=== PATIENT | female | born 1965 | race Caucasian/White ===

== ENCOUNTER 2019-11-21 14:38 | Emergency (ER) | payer MEDICARE, MEDICAID, SELFPAY ==
--- NOTE | 2019-11-21 14:54 | ED.GENADULT ---
HPI - General Adult General Chief complaint: Upper Respiratory Infection Stated complaint: cough,ear pain History of Present Illness HPI narrative: Jacque is a 54-year-old woman with a past medical history of tobacco abuse and diabetes that presented with 2 days of flu-like symptoms. It started with a runny nose and cough some progress to body aches and subjective fevers and chills. She denies any chest pain, syncope and near-syncope. Admits nausea but no vomiting. Related Data Home Medications Medication Instructions Recorded Confirmed metformin 500 mg PO DAILY 11/21/19 11/21/19 Allergies Allergy/AdvReac Type Severity Reaction Status Date / Time Penicillins Allergy Hives Verified 09/20/19 14:19 codeine AdvReac Nausea Verified 09/20/19 14:19 Review of Systems Constitutional: Constitutional: Reports fatigue and Reports fever(s) Eyes: Eyes: Reports as per HPI ENT: Reports as per HPI Cardiovascular: Cardiovascular: Reports as per HPI Respiratory: Respiratory: Reports cough, Denies dyspnea and Denies wheezing Gastrointestinal: Gastrointestinal: Denies abdominal pain, Reports nausea and Denies vomiting Musculoskeletal: Musculoskeletal: Reports no additional musculoskeletal complaints Integumentary/Breasts: Skin/Breast: Reports system reviewed and no additional complaints, except as docu Neurologic: Reports system reviewed and no additional complaints, except as documented Psychiatric: Psychiatric: Reports no additional psychiatric complaints Endocrine: Endocrine: Reports no additional endocrine complaints Hematologic/Lymphatic: Hematologic/Lymphatic: Reports no additional hematologic/lymphatic complaints Allergic/Immunologic: Allergic/Immunologic: Reports no additional allergic/immunologic complaints [facility] Past Medical History Medical History COPD (chronic obstructive pulmonary disease) Type 2 diabetes mellitus Social History Social History Smoking status: Current every day smoker Alcohol intake: current Substance use type: does not use Exam Const: General: no acute distress and alert Orientation/consciousness: patient oriented x3 HENMT: Other: erythematous and boggy nasal turbinates, TM within normal limits bilaterally, moist oral mucosa Eyes: Conjunctivae: conjunctivae normal Pupils: Equal, round and reactive pupils present Neck: Neck: normal visual inspection Chest: Chest palpation & inspection: normal inspection of the chest Resp: Effort & Inspection: normal respiratory effort, not labored and not tachypneic Auscultation: clear to auscultation bilaterally Cardio: Rate: regular rate Rhythm: regular rhythm Heart sounds: no murmurs GI: GI Palp: Yes Soft to palpation and No Tenderness to palpation present (GI) Skin: General skin exam: normal color Rashes: no rashes Neuro: General: patient oriented x3 and moves all extremities Extrem: General: normal to inspection Psych: Mental Status: mental status grossly normal Course Course Emergency Course: Jacque was seen and evaluated. Flu swabs were ordered given her symptoms. Her flu swabs were negative. On re-examination her lungs were clear. However further history reveals she does have some wheezing at home. For this reason she was given an inhaler, educated on return precautions then discharged Vital Signs Vital signs: Vital Signs Temperature 36.6 C 11/21/19 14:55 Pulse Rate 94 11/21/19 14:55 Respiratory Rate 20 11/21/19 14:55 Blood Pressure 157/86 H 11/21/19 14:55 Pulse Oximetry 99 11/21/19 14:55 Temperature 36.6 C 11/21/19 14:55 Pulse Rate 94 11/21/19 14:55 Respiratory Rate 20 11/21/19 14:55 Blood Pressure 157/86 H 11/21/19 14:55 Pulse Oximetry 99 11/21/19 14:55 Medical Decision Making [facility] Narrative Medical decision making narrative: Given her cough and rhi
[2019-11-21 14:55] VITALS: BP 157/86; PULSE 94; RESP 20; TEMP 36.6; O2SAT 99
[2019-11-21 15:49] LABS: Influenza Control Valid (Valid)
[2019-11-21 16:06] VITALS: RESP 20; O2SAT 99
== END 2019-11-21 16:07 | disposition home or self-care (01) ==
PROVIDERS: Emergency Provider Family Medicine; PCP Family Medicine
DX: J06.9 Acute upper respiratory infection, unspecified (principal); F17.200 Nicotine dependence, unspecified, uncomplicated
CPT/HCPCS: 87804; 99283

== ENCOUNTER 2020-03-17 15:28 | Emergency (ER) | payer MEDICARE, MEDICAID, SELFPAY ==
--- NOTE | ~2020-03-17 | XR_ITS ---
EXAMINATION: XR chest 2V EXAM DATE: 03/17/2020 16:40 INDICATION: Right-sided chest pain, shortness of breath and cough. TECHNIQUE: Frontal and lateral projections of the chest obtained and reviewed. Comparison is made to prior examination from 10/05/2018. FINDINGS: The lungs are clear. There is mild hyperinflation. There are no pleural effusions. The car diomediastinal silhouette is within normal limits. There is no pneumothorax suspected. The bones an d soft tissues are unremarkable. IMPRESSION: Mild hyperinflation. Reviewed, dictated and finalized at location B. IMPRESSION: Mild hyperinflation.
[2020-03-17 15:33] VITALS: BP 165/87; PULSE 88; RESP 20; TEMP 36.7; O2SAT 98
[2020-03-17 15:37] VITALS: PULSE 81
--- NOTE | 2020-03-17 16:03 | ECG_ITS ---
Measurements Intervals [place] Rate: 81 P: 72 MT: 146 QRS: 49 QRSD: 94 T: 56 QT: 390 QTc: 453 Interpretive Statements SINUS RHYTHM LOW QRS VOLTAGE IN PRECORDIAL LEADS BORDERLINE T WAVE ABNORMALITY- INFERIOR LEADS BORDERLINE ECG Electronically Signed On 03-17-2020 17:05:04 CDT by Escobar Bonilla D.O.
[2020-03-17 16:43] LABS: Basophils Absolute Auto 0.02 K/mm3 (0.00-0.10); Basophils Percent Auto 0.4 % (0.0-1.0); Eosinophils Absolute Auto 0.07 K/mm3 (0.02-0.50); Eosinophils Percent Auto 1.4 % (1.0-6.0); Hematocrit 38.8 % (35.0-49.0); Hemoglobin 12.5 g/dL (12.0-15.0); Immature Granulocyte Absolute 0.02 K/mm3 (0.00-0.00); Immature Granulocyte Percent A 0.4 % (0.0-0.0); Lymphocytes Absolute Auto 1.67 K/mm3 (1.10-4.50); Lymphocytes Percent Auto 33.3 % (18.0-42.0); Mean Corpuscular HGB Conc 32.2 g/dL (32.0-36.0); Mean Corpuscular Hemoglobin 28.8 pg (27.0-31.0); Mean Corpuscular Volume 89.4 fL (78.0-102.0); Monocytes Absolute Auto 0.25 K/mm3 (0.10-0.90); Neutrophils Percent Auto 59.5 % (50.0-70.0); Platelet Count Result 156 K/mm3 (150-420); Red Blood Count 4.34 M/mm3 (4.20-5.40); Red Cell Distribution Width 13.4 % (11.6-14.4)
[2020-03-17 16:45] LABS: Add Urine Microscopic? YES; Bilirubin Urine Negative (Negative); Blood Urine Negative (Negative); Color Urine Yellow (Yellow); Glucose Urine UA Negative (Negative); Ketones Urine Negative (Negative); Leukocyte Esterase Ur Trace LEU/UL (Negative); Nitrate Urine Positive (Negative); Protein Urine Negative (Negative); pH Urine 6.5 (5.0-8.0)
[2020-03-17 16:46] LABS: Pregnancy On Board Control Positive; Urine Pregnancy Test Negative
[2020-03-17 16:51] LABS: Appearance Urine Sl Cloudy (Clear); RBC Urine 0-2 /hpf (0-2); Squamous Epithelial Cell Urine Few /hpf (Few); WBC Urine 0-3 /hpf (0-3)
[2020-03-17 16:52] LABS: Bacteria Urine 4+ /hpf
[2020-03-17 16:58] LABS: D Dimer 0.38 mg/L (0.19-0.50)
[2020-03-17 17:03] LABS: Alanine Aminotransferase 18 U/L (14-59); Albumin Level 3.5 g/dL (3.4-5.0); Alkaline Phosphatase 76 U/L (46-116); Anion Gap 10.8 mmol/L (7-16); Aspartate Amino Transferase 17 U/L (15-37); Bilirubin,Total 0.2 mg/dL (0.00-1.00); Blood Urea Nitrogen 10 mg/dL (7-18); Calcium 8.9 mg/dL (8.5-10.1); Carbon Dioxide 30 mmol/L (21-32); Chloride 102 mmol/L (98-108); Estimated Glomerular Filt Rate > 60; Glucose 103 mg/dL (70-99); Osmolality Calculated 287 mOsm/kg (285-295); Potassium 3.8 mmol/L (3.5-5.1); Sodium 139 mmol/L (136-145); Total Protein 7.6 g/dL (6.4-8.2); Troponin I < 0.02 ng/mL (0.00-0.056)
--- NOTE | 2020-03-17 18:16 | ED.CHESTPAIN ---
HPI - Chest Pain General Chief Complaint: Chest Pain Stated Complaint: chest pain Source: patient Mode of arrival: ambulatory Limitations: no limitations History of Present Illness HPI narrative: This is a 55-year-old female who presents to the emergency department with complaints of right-sided chest pain. Patient states that she has been having a cough and not feeling very good for a few days. However this morning when she woke up she has some back pain in the right side of her chest that radiates into her chest wall in the axillary region. She has not had fever however she did feel hot and sweaty at 1 point. She is not having any nausea or vomiting. she does not have any variation in her discomfort with exertion food or activity. Patient does have a history of COPD. MD complaint: chest discomfort Pertinent past history: asthma ( COPD) Onset (ago): minute(s) Timing of current episode: constant Prior episodes: No Pain location: right chest Pain radiation: none Severity: moderate Quality: tightness Relieving factors: nothing Exacerbating factors: nothing Context: recent illness ( patient has had cold and cough symptoms for a couple of days preceding this discomfort.) Related Data Home Medications Medication Instructions Recorded Confirmed metformin 500 mg PO BID 11/21/19 03/17/20 Allergies Allergy/AdvReac Type Severity Reaction Status Date / Time Penicillins Allergy Hives Verified 09/20/19 14:19 codeine AdvReac Nausea Verified 09/20/19 14:19 Review of Systems Review of Systems: All systems reviewed & are unremarkable except as noted in HPI and below Constitutional: Constitutional: Denies chills, Reports fatigue, Reports fever(s) ( Subjective warmness but no documented temperature) and Denies weakness ENT: Denies system reviewed and no additional complaints, except as documented, Denies as per HPI, Denies dysphagia, Denies vertigo, Denies dizziness, Denies epistaxis, Denies nasal congestion and Denies sore throat Cardiovascular: Cardiovascular: Denies as per HPI, Denies no additional cardiovascular complaints, Denies chest pain, Denies rapid heart rate, Denies radiating jaw, neck or arm pain and Denies slow heart rate Respiratory: Respiratory: Reports cough and Reports dyspnea Gastrointestinal: Gastrointestinal: Denies as per HPI, Reports no additional gastrointestinal complaints, Denies abdominal pain, Denies bloating, Denies constipation, Denies heartburn, Denies diarrhea, Denies nausea and Denies vomiting Genitourinary: Genitourinary: Reports no additional female genitourinary complaints, Denies as per HPI, Denies abnormal vaginal bleeding, Denies hematuria, Denies nocturia, Denies genital lesions, Denies dysuria, Denies pelvic pain, Denies flank pain, Denies urinary incontinence and Denies vaginal discharge Musculoskeletal: Musculoskeletal: Denies no additional musculoskeletal complaints, Denies as per HPI, Denies back pain, Denies myalgias, Denies arthralgias, Denies joint swelling and Denies muscle cramps Neurologic: Denies system reviewed and no additional complaints, except as documented, Denies as per HPI, Denies confusion, Denies vertigo, Denies dizziness, Denies syncope, Denies headache(s), Denies focal weakness, Denies numbness and Denies weakness Psychiatric: Psychiatric: Denies no additional psychiatric complaints, Denies as per HPI, Denies anxiety, Denies depression, Denies homicidal ideation and Denies suicidal ideation Allergic/Immunologic: Allergic/Immunologic: Denies no additional allergic/immunologic complaints, Denies as per HPI, Denies lip swelling, Denies throat swelling, Denies tongue swelling and Denies wheezing [facility] Past Medical History Medical History COPD (chronic obstructive pulmonary disease) Type 2 diabetes mellitus Social History Social History Smoking status: Current ever
[2020-03-17 18:50] VITALS: BP 128/66; PULSE 82; RESP 18; O2SAT 98
== END 2020-03-17 18:50 | disposition home or self-care (01) ==
PROVIDERS: Emergency Provider Emergency Medicine; PCP Family Medicine
DX: E11.9 Type 2 diabetes mellitus without complications (principal); Z79.4 Long term (current) use of insulin; J44.1 Chronic obstructive pulmonary disease with (acute) exacerbation; F17.200 Nicotine dependence, unspecified, uncomplicated; R82.90 Unspecified abnormal findings in urine
CPT/HCPCS: 36415; 71046; 80053; 81001; 81025; 84484; 85025; 85380; 87077; 87086; 87088; 87186; 93005; 99284

== ENCOUNTER 2021-03-26 20:38 | Emergency (ER) | payer MEDICARE, MEDICAID, SELFPAY ==
[2021-03-26 20:50] VITALS: BP 150/66; PULSE 84; RESP 20; TEMP 36.6; O2SAT 98
--- NOTE | 2021-03-26 20:55 | ED.WOUNDLAC ---
HPI - Wound/Laceration General Chief Complaint: Wound/Laceration Stated Complaint: bump on finger Source: patient Mode of arrival: ambulatory Limitations: no limitations History of Present Illness HPI narrative: patient with a lesion on the anterior surface of her right index finger with no drainage from warmth no redness no fever chills, patient has had this for the last couple of days has tried Neosporin for the last couple of days currently no drainage no pain or tenderness has good range of motion concerned that she may have been bitten by a spider. Patient is not up-to-date with her tetanus and will get her up-to-date. Onset (ago): day(s) Extremity Location: Right: hand ( right index finger) Related Data Home Medications Medication Instructions Recorded Confirmed metformin 500 mg PO BID 11/21/19 03/26/21 Allergies Allergy/AdvReac Type Severity Reaction Status Date / Time Penicillins Allergy Hives Verified 09/20/19 14:19 codeine AdvReac Nausea Verified 09/20/19 14:19 Review of Systems Review of Systems: All systems reviewed & are unremarkable except as noted in HPI and below PMFSH Past Medical History Medical History (Updated 03/26/21 @ 20:58 by Mynor Germain MD) COPD (chronic obstructive pulmonary disease) Type 2 diabetes mellitus Social History Social History Smoking status: Current every day smoker Alcohol intake: current Substance use type: does not use Exam Const: General: no acute distress and alert Orientation/consciousness: patient oriented x3 HENMT: Head: normal to inspection Eyes: Conjunctivae: conjunctivae normal Pupils: Equal, round and reactive pupils present Chest: Chest palpation & inspection: normal inspection of the chest Resp: Effort & Inspection: normal respiratory effort Auscultation: clear to auscultation bilaterally Cardio: Rate: regular rate Rhythm: regular rhythm GI: GI Palp: Yes Soft to palpation Percussion: Yes normal to percussion Skin: Other: Small 2mm lesion anterior surface with no drainage no warmth or tenderness on her right index finger. Neuro: General: patient oriented x3 Extrem: General: normal to inspection and no pedal edema Psych: Mental Status: mental status grossly normal Affect: normal affect Course Course Emergency Course: Patient has a lesion placed antibiotic ointment and updated patient with some tenderness Vital Signs Vital signs: Vital Signs Temperature 36.6 C 03/26/21 20:50 Pulse Rate 84 03/26/21 20:50 Respiratory Rate 20 03/26/21 20:50 Blood Pressure 150/66 H 03/26/21 20:50 Pulse Oximetry 98 03/26/21 20:50 Temperature 36.6 C 03/26/21 20:50 Pulse Rate 84 03/26/21 20:50 Respiratory Rate 20 03/26/21 20:50 Blood Pressure 150/66 H 03/26/21 20:50 Pulse Oximetry 98 03/26/21 20:50 Critical Care Time Critical Care Time Critical Care Time: No Discharge Plan Discharge Clinical Impression: Abscess Patient Disposition: Home, Self-Care Condition: Stable Instructions: Antibiotic Form, Abscess (ED) Additional Instructions: advised patient to continue Neosporin once daily x3 additional days and then follow-up primary care physician if symptoms persist or worsen. Prescriptions: No Action metformin 500 mg Tablet 500 mg PO BID RF: 0 albuterol sulfate 90 mcg/actuation HFA aerosol inhaler 1 inhalation INHALATION QID PRN (Reason: shortness of breath or wheezing) Qty: 18 RF: 0 Follow-up/Referrals: Faisal Cooper M.D. [Primary Care Provider] - Time of Disposition: 20:58
[2021-03-26] MEDS: TETANUS,DIPHTHERIA,AC PERTUSSIS ADULT 0.5 ML (ADACEL) IM (21:02)
[2021-03-26 21:04] VITALS: BP 149/78; PULSE 78; RESP 18; O2SAT 98
[2021-03-26] MEDS: NEOMYCIN/POLYMYXIN/BACITRACIN OINTMENT PACKET 1 PACKET TOPICAL (21:04)
== END 2021-03-26 21:07 | disposition home or self-care (01) ==
PROVIDERS: Emergency Provider Emergency Medicine; PCP Family Medicine
DX: L02.91 Cutaneous abscess, unspecified (principal)
CPT/HCPCS: 90471; 90715; 99282

== ENCOUNTER 2021-07-06 14:39 | Emergency (ER) | payer MEDICARE, MEDICAID, SELFPAY ==
[2021-07-06 14:54] VITALS: BP 143/76; PULSE 86; RESP 16; TEMP 36.4; O2SAT 98
--- NOTE | 2021-07-06 15:15 | ED.EXTPRO ---
HPI - Extremity Problem General Chief complaint: Extremity Problem,Nontraumatic Stated complaint: Lt shoulder pain Source: patient Mode of arrival: ambulatory Limitations: no limitations History of Present Illness HPI Narrative: this is a 56-year-old female that presents with some pain in her left neck and shoulder area muscular has about a 6/10 pain with palpation, with no known injury, no fever chills has good range of motion in her neck with no headache no blurry vision no nausea vomiting. MD Complaint: extremity pain ( left neck and shoulder muscular pain with palpation) Onset (ago): day(s) Pain Consistency: constant Location: left Severity scale (1-10): 6 Quality: aching Relieving factors: immobilization and medication Exacerbating factors: range of motion Associated symptoms: denies other symptoms Related Data Home Medications Medication Instructions Recorded Confirmed metformin 500 mg PO BID 11/21/19 07/06/21 Allergies Allergy/AdvReac Type Severity Reaction Status Date / Time Penicillins Allergy Hives Verified 09/20/19 14:19 codeine AdvReac Nausea Verified 09/20/19 14:19 Review of Systems Review of Systems: All systems reviewed & are unremarkable except as noted in HPI and below PMFSH Past Medical History Medical History (Updated 07/06/21 @ 15:22 by Mynor Germain MD) COPD (chronic obstructive pulmonary disease) Type 2 diabetes mellitus Social History Social History Smoking status: Current every day smoker Alcohol intake: current Substance use type: does not use Exam Const: General: no acute distress Orientation/consciousness: patient oriented x3 HENMT: Head: normal to inspection Eyes: Conjunctivae: conjunctivae normal Pupils: Equal, round and reactive pupils present Neck: Neck: normal visual inspection Chest: Chest palpation & inspection: normal inspection of the chest Resp: Effort & Inspection: normal respiratory effort Cardio: Rate: regular rate GI: GI Palp: Yes Soft to palpation : General: Yes no CVA tenderness Urinary Catheter: Urinary Catheter: patent and draining Skin: General skin exam: normal color Rashes: no rashes Extrem: Other: Left upper neck area muscular tenderness with palpation Psych: Appearance: grossly normal Mental Status: mental status grossly normal Affect: normal affect Course Course Emergency Course: patient received IM injection of Toradol, pain level has improved. Vital Signs Vital signs: Vital Signs Temperature 36.4 C 07/06/21 14:54 Pulse Rate 86 07/06/21 14:54 Respiratory Rate 16 07/06/21 14:54 Blood Pressure 143/76 H 07/06/21 14:54 Pulse Oximetry 98 07/06/21 14:54 Temperature 36.4 C 07/06/21 14:54 Pulse Rate 86 07/06/21 14:54 Respiratory Rate 16 07/06/21 14:54 Blood Pressure 143/76 H 07/06/21 14:54 Pulse Oximetry 98 07/06/21 14:54 Critical Care Time Critical Care Time Critical Care Time: No Discharge Plan Discharge Clinical Impression: Spasm of cervical paraspinous muscle Patient Disposition: Home, Self-Care Condition: Stable Instructions: Antibiotic Form, Muscle Spasm (ED) Additional Instructions: take medicine as prescribed and follow-up with primary care physician within 2 to 3 days further evaluation treatment. Prescriptions: New tramadol [Ultram] 50 mg tablet 50 mg PO Q6H PRN (Reason: pain) Qty: 14 RF: 0 cyclobenzaprine 5 mg tablet 5 mg PO TID Qty: 20 RF: 0 No Action metformin 500 mg Tablet 500 mg PO BID RF: 0 albuterol sulfate 90 mcg/actuation HFA aerosol inhaler 1 inhalation INHALATION QID PRN (Reason: shortness of breath or wheezing) Qty: 18 RF: 0 Follow-up/Referrals: Faisal Cooper M.D. [Primary Care Provider] - Time of Disposition: 15:25
[2021-07-06] MEDS: KETOROLAC (*BKC) 60 MG/2 ML VIAL IM (15:24)
== END 2021-07-06 15:41 | disposition home or self-care (01) ==
PROVIDERS: Emergency Provider Emergency Medicine; PCP Family Medicine
DX: M62.838 Other muscle spasm (principal); J44.9 Chronic obstructive pulmonary disease, unspecified; E11.9 Type 2 diabetes mellitus without complications
CPT/HCPCS: 96372; 99283; J1885

== ENCOUNTER 2021-07-25 15:00 | Emergency (ER) | payer MEDICARE, SELFPAY ==
[2021-07-25 15:15] VITALS: BP 139/80; PULSE 88; RESP 18; TEMP 36.6; O2SAT 95
--- NOTE | 2021-07-25 15:19 | ED.GENADULT ---
HPI - General Adult General Chief complaint: Unspecified Stated complaint: Not feeling well Source: patient Mode of arrival: ambulatory Limitations: no limitations History of Present Illness HPI narrative: this is a 56-year-old female that presents with some dysuria pressure in her bladder area with no flank pain no fever chills no nausea vomiting does have some body aches with no hematuria, the patient has a frequent urinary tract infections and has taken azo [id number] with minimal relief. Rates her suprapubic discomfort about a 3/10. Onset (ago): hour(s) Radiation: abdomen ( suprapubic tenderness and discomfort) Severity: mild Severity scale (1-10): 4 Quality: burning Pain Consistency: constant Related Data Home Medications Medication Instructions Recorded Confirmed metformin 500 mg PO BID 11/21/19 07/25/21 Allergies Allergy/AdvReac Type Severity Reaction Status Date / Time Penicillins Allergy Hives Verified 07/25/21 15:13 codeine AdvReac Nausea Verified 07/25/21 15:13 Review of Systems Review of Systems: All systems reviewed & are unremarkable except as noted in HPI and below [facility] Past Medical History Medical History (Updated 07/25/21 @ 15:22 by Mynor Germain MD) COPD (chronic obstructive pulmonary disease) Type 2 diabetes mellitus Social History Social History Smoking status: Current every day smoker Alcohol intake: current Substance use type: does not use Exam Const: General: cooperative, healthy appearing, comfortable and no acute distress HENMT: Head: normal to inspection Ears: hearing grossly normal bilaterally General nose exam: Normal external nose present Mouth: Yes Normal oral and palatal mucosa present Eyes: General: appearance normal, both eyes and all related structures Neck: Neck: normal visual inspection, full ROM and no lymphadenopathy Resp: Effort & Inspection: normal respiratory effort and able to speak in complete sentences Cardio: Palpation: normal PMI Rate: regular rate Rhythm: regular rhythm : Other: Suprapubic tenderness with palpation Back/Spine/Pelvis: Back: no CVA tenderness Cervical Spine: normal cervical lordosis Skin: Lesions: no lesions Rashes: no rashes Psych: Appearance: grossly normal and well kempt Course Course Emergency Course: patient had a urinalysis performed and reviewed with patient Vital Signs Vital signs: Vital Signs Temperature 36.6 C 07/25/21 15:15 Pulse Rate 88 07/25/21 15:15 Respiratory Rate 18 07/25/21 15:15 Blood Pressure 139/80 07/25/21 15:15 Pulse Oximetry 95 07/25/21 15:15 Temperature 36.6 C 07/25/21 15:15 Pulse Rate 88 07/25/21 15:15 Respiratory Rate 18 07/25/21 15:15 Blood Pressure 139/80 07/25/21 15:15 Pulse Oximetry 95 07/25/21 15:15 Medical Decision Making Vital Signs Vital Signs: Vital Signs Temperature 36.6 C 07/25/21 15:15 Pulse Rate 88 07/25/21 15:15 Respiratory Rate 18 07/25/21 15:15 Blood Pressure 139/80 07/25/21 15:15 Pulse Oximetry 95 07/25/21 15:15 Temperature 36.6 C 07/25/21 15:15 Pulse Rate 88 07/25/21 15:15 Respiratory Rate 18 07/25/21 15:15 Blood Pressure 139/80 07/25/21 15:15 Pulse Oximetry 95 07/25/21 15:15 Critical Care Time Critical Care Time Critical Care Time: No Discharge Plan Discharge Clinical Impression: UTI (urinary tract infection) Qualifiers: Urinary tract infection type: acute cystitis Hematuria presence: without hematuria Qualified Code(s): N30.00 - Acute cystitis without hematuria Patient Disposition: Home, Self-Care Condition: Stable Instructions: Antibiotic Form, Urinary Tract Infection in Women (ED) Additional Instructions: take medicine as prescribed and follow-up with primary care physician within 1 week further evaluation treatment. Prescriptions: New nitrofurantoin monohyd/m-cryst [Macrobid] 10
--- NOTE | 2021-07-25 15:27 | PC.NURSE ---
Urine taken to lab.
[2021-07-25] MEDS: ACETAMINOPHEN 500 MG TABLET 1000 MG PO (15:28)
[2021-07-25 15:30] LABS: Add Urine Microscopic? NO; Appearance Urine Clear (Clear); Bilirubin Urine Negative (Negative); Blood Urine Negative (Negative); Color Urine Yellow (Yellow); Glucose Urine UA Negative (Negative); Ketones Urine Negative (Negative); Leukocyte Esterase Ur Negative (Negative); Nitrate Urine Negative (Negative); Protein Urine Negative (Negative); Specific Grav Ur >= 1.030 (1.010-1.020); Urobilinogen Urine 0.2 mg/dL (0.2-1.0)
== END 2021-07-25 15:54 | disposition home or self-care (01) ==
PROVIDERS: Emergency Provider Emergency Medicine; PCP Family Medicine
DX: N30.00 Acute cystitis without hematuria (principal); J44.9 Chronic obstructive pulmonary disease, unspecified; E11.9 Type 2 diabetes mellitus without complications; F17.200 Nicotine dependence, unspecified, uncomplicated
CPT/HCPCS: 81003; 99283

== ENCOUNTER 2021-11-23 14:45 | Emergency (ER) | payer OTHER, SELFPAY ==
--- NOTE | ~2021-11-23 | XR_ITS ---
EXAMINATION: XR chest 1V portable EXAM DATE: 11/23/2021 16:07 INDICATION: Positive COVID. cough with SOB. TECHNIQUE: Portable AP frontal chest x-ray was obtained. Comparison is made to prior examination from 03/17/2020. FINDINGS: The lungs are clear. There are no pleural effusions. The cardiomediastinal silhouette is within normal limits. There is no pneumothorax suspected. The bones and soft tissues are unremarkab le. IMPRESSION: No acute cardiopulmonary findings. Reviewed, dictated and finalized at location A. [employer]
--- NOTE | 2021-11-23 15:00 | ED.URI ---
HPI - URI/Sore Throat General Chief Complaint: Upper Respiratory Infection Stated Complaint: chest pain,hot/cold,possible fever Time Seen by Provider: 11/23/21 14:57 Source: patient and RN notes reviewed Mode of arrival: ambulatory Limitations: no limitations History of Present Illness MD elicited complaint: fever, cough and other ( Chest congestion) Pertinent past history: COPD Onset (ago): hour(s) (6) Consistency: constant Severity: moderate Description of mucous: clear Able to tolerate fluids by mouth: Yes Exacerbating factors: deep breaths Relieving factors: nothing Associated symptoms: chills Treatments prior to arrival: cold medicine Related Data Home Medications Medication Instructions Recorded Confirmed metformin 500 mg PO BID 11/21/19 11/23/21 Allergies Allergy/AdvReac Type Severity Reaction Status Date / Time Penicillins Allergy Hives Verified 11/23/21 15:08 codeine AdvReac Nausea Verified 11/23/21 15:08 Review of Systems Review of Systems: All systems reviewed & are unremarkable except as noted in HPI and below Constitutional: Constitutional: Reports as per HPI PMFSH Past Medical History Medical History (Updated 11/23/21 @ 16:41 by Kurt Arteaga MD) COPD (chronic obstructive pulmonary disease) Type 2 diabetes mellitus Social History Social History Smoking status: Current every day smoker Alcohol intake: current Substance use type: does not use Exam Const: General: healthy appearing and no acute distress Nutritional Appearance: well nourished Orientation/consciousness: patient oriented x3 HENMT: Head: normal to inspection Ears: external ears normal and TM's normal bilaterally General nose exam: Normal external nose present Face and sinus: normal facial exam Mouth: Yes lip normal and Yes moist mucous membranes Eyes: Conjunctivae: conjunctivae normal Pupils: Equal, round and reactive pupils present EOM: EOMs intact bilaterally Neck: Neck: normal visual inspection Resp: Effort & Inspection: normal respiratory effort Auscultation: clear to auscultation bilaterally Cardio: Rate: tachycardic Rhythm: regular rhythm GI: GI Palp: Yes Soft to palpation and No Tenderness to palpation present (GI) Auscultation: normal bowel sounds Back/Spine/Pelvis: Cervical Spine: cervical ROM normal Thoracic/Lumbar Spine: thoraco-lumbar ROM normal Skin: General skin exam: normal color Rashes: no rashes Neuro: General: patient oriented x3, moves all extremities, no meningeal signs, no focal motor deficits and CN's II-XI intact bilaterally Speech: normal speech Gait exam (Neuro): Normal gait present Extrem: General: normal to inspection and no clubbing, cyanosis or edema Psych: Appearance: grossly normal and well kempt Mental Status: mental status grossly normal Affect: normal affect and Anxious affect present Attitude: cooperative Thought content: Yes Normal thought content present Course Vital Signs Vital signs: Vital Signs Temperature 37.1 C 11/23/21 15:01 Pulse Rate 120 H 11/23/21 15:01 Respiratory Rate 98 H 11/23/21 15:01 Blood Pressure 135/75 11/23/21 15:01 Pulse Oximetry 99 11/23/21 15:01 Temperature 37.1 C 11/23/21 15:01 Pulse Rate 120 H 11/23/21 15:01 Respiratory Rate 98 H 11/23/21 15:01 Blood Pressure 135/75 11/23/21 15:01 Pulse Oximetry 99 11/23/21 15:01 MDM - URI/Sore Throat Differential Diagnosis Differential diagnosis: Likely upper respiratory infection, viral infection, bronchitis and influenza Lab Data Attestation: I reviewed the patient's lab results. Result diagrams: 11/23/21 15:11 11/23/21 15:11 Labs: Lab Results 11/23/21 11/23/21 11/23/21 Range/Units 15:00 15:09 15:11 WBC 3.6 L (4.8-10.8) K/mm3 RBC 4.25 (4.20-5.40) M/mm3 Hgb 12.2 (12.0-15.0) g/dL Hct 38.1 (35.0-49.0) % MCV 89.6 (78.0-102.0) fL MCH 28
[2021-11-23 15:01] VITALS: BP 135/75; PULSE 120; RESP 98; TEMP 37.1; O2SAT 99
[2021-11-23 15:22] LABS: Hematocrit 38.1 % (35.0-49.0); Hemoglobin 12.2 g/dL (12.0-15.0); Mean Corpuscular Hemoglobin 28.7 pg (27.0-31.0); Mean Corpuscular Volume 89.6 fL (78.0-102.0); Mean Platelet Volume 9.2 fl (9.2-11.8); Platelet Count Result 144 K/mm3 (150-420); Red Blood Count 4.25 M/mm3 (4.20-5.40); Red Cell Distribution Width 13.4 % (11.6-14.4); White Blood Count 3.6 K/mm3 (4.8-10.8)
--- NOTE | 2021-11-23 15:26 | PC.NURSE ---
Urine obtained and sent to lab.
[2021-11-23 15:31] LABS: Add Urine Microscopic? NO; Appearance Urine Clear (Clear); Bilirubin Urine Negative (Negative); Blood Urine Negative (Negative); Color Urine Light Yellow (Yellow); Glucose Urine UA Negative (Negative); Ketones Urine Negative (Negative); Leukocyte Esterase Ur Negative LEU/UL (Negative); Nitrate Urine Negative (Negative); Protein Urine Negative (Negative); Specific Grav Ur 1.015 (1.010-1.020); Urobilinogen Urine 0.2 mg/dL (0.2-1.0)
[2021-11-23 15:41] LABS: Band Neutrophils Percent 0 % (0-6); Basophils Percent Manual 0 % (0-1); Eosinophils Absolute Manual 0.03 K/mm3 (0.02-0.5); Eosinophils Percent Manual 1 % (1-6); Lymphocytes Absolute Manual 0.43 K/mm3 (1.1-4.5); Lymphocytes Percent Manual 12 % (18-44); Monocytes Absolute Manual 0.18 K/mm3 (0.1-0.90); Monocytes Percent Manual 5 % (3-9); Neutrophils Absolute Manual 2.95 K/mm3 (1.7-7.2); Neutrophils Percent Manual 82 % (46-73); Platelet Estimate Adequate (Adequate); Total Cells Counted 100
[2021-11-23 15:47] LABS: SARS-CoV-2 RNA PCR Positive (Negative)
[2021-11-23 15:50] LABS: Influenza A QL RT-PCR Negative (Negative); Influenza B QL RT-PCR Negative (Negative)
[2021-11-23 15:54] LABS: Alanine Aminotransferase 20 U/L (14-59); Albumin Level 3.5 g/dL (3.4-5.0); Alkaline Phosphatase 67 U/L (46-116); Anion Gap 10 mmol/L (8-16); Aspartate Amino Transferase 14 U/L (15-37); Bilirubin,Total 0.2 mg/dL (0.00-1.00); Blood Urea Nitrogen 12 mg/dL (7-18); CRP 0.8 mg/dL (0.0-0.9); Calcium 8.7 mg/dL (8.5-10.1); Carbon Dioxide 27 mmol/L (21-32); Chloride 101 mmol/L (98-108); Estimated CRCL calculation 73 ml/min; Estimated Glomerular Filt Rate > 60; Ferritin 48 ng/mL (8-252); Glucose 105 mg/dL (70-99); Magnesium 1.5 mg/dL (1.8-2.4); Osmolality Calculated 285 mOsm/kg (285-295); Potassium 4.1 mmol/L (3.5-5.1); Sodium 138 mmol/L (136-145); Total Protein 7.2 g/dL (6.4-8.2)
== END 2021-11-23 17:05 | disposition home or self-care (01) ==
PROVIDERS: Emergency Provider Emergency Medicine; PCP Family Medicine
DX: U07.1 COVID-19 (principal); J44.9 Chronic obstructive pulmonary disease, unspecified; E11.9 Type 2 diabetes mellitus without complications; F17.200 Nicotine dependence, unspecified, uncomplicated
CPT/HCPCS: 71045; 80053; 81003; 82728; 83735; 85025; 86140; 87502; 99283; C9803; U0003; U0005

== ENCOUNTER 2022-01-18 00:07 | Emergency (ER) | payer OTHER, SELFPAY ==
--- NOTE | ~2022-01-18 | XR_ITS ---
EXAMINATION: XR chest 1V portable DATE: 01/18/2022 01:15 INDICATION: Shortness of breath TECHNIQUE: frontal view of the chest was obtained. COMPARISON: Chest radiograph dated 11/23/21 FINDINGS: The lungs remain clear with no focal airspace opacities, pulmonary edema, pleural effusion or pneumot horax. The cardiomediastinal silhouette is normal. Visualized bones and soft tissues are unremarkable . IMPRESSION: 1. No acute cardiopulmonary disease. Reviewed, dictated and finalized at location [facility].
--- NOTE | 2022-01-18 00:19 | ECG_ITS ---
Measurements Intervals [place] Rate: 102 P: 75 SD: 141 QRS: 42 QRSD: 86 T: 88 QT: 344 QTc: 449 Interpretive Statements SINUS TACHYCARDIA INCOMPLETE RIGHT BUNDLE BRANCH BLOCK NONSPECIFIC T-WAVE ABNORMALITY- DIFFUSE LEADS BASELINE ARTIFACT- II, III, AVR, AVL, AVF, V1-V2, V4-V6 BORDERLINE ECG Electronically Signed On 01-18-2022 6:18:37 CDT by Escobar Bonilla D.O.
[2022-01-18 00:26] VITALS: BP 146/90; PULSE 107; RESP 22; TEMP 36.4; O2SAT 96
[2022-01-18] MEDS: IPRATROPIUM 0.5 MG/ALBUTEROL SULFATE 2.5 MG AMPUL.NEB 3 ML INHALATION (00:35)
[2022-01-18 00:41] LABS: Base Excess ABG 1.6 mmol/L (0-2); HCO3 ABG 25.2 mmol/L (23-29); Oxygen Content ABG 16.9 %vol (16.0-22.0); PCO2 ABG 36.5 mmHg (35-45); PO2 ABG 87.3 mmHg (80-90); Total Hemoglobin 12.9 g/dL (12.0-18.0); pH ABG 7.46 (7.35-7.45)
[2022-01-18 00:42] LABS: Device ROOM AIR; Modified Allen's Test Pass; Site Drawn RIGHT RADIAL
[2022-01-18 00:50] VITALS: PULSE 105; RESP 22; O2SAT 96
[2022-01-18 00:53] VITALS: PULSE 108; RESP 20; O2SAT 97
[2022-01-18] MEDS: methylPREDNISolone SOD SUCC 125 MG VIAL IV PUSH (00:55)
[2022-01-18] MEDS: guaiFENesin 12 HR 600 MG TABCR PO (00:56)
[2022-01-18 01:03] LABS: Basophils Absolute Auto 0.03 K/mm3 (0.00-0.10); Basophils Percent Auto 0.4 % (0.0-1.0); Eosinophils Absolute Auto 0.12 K/mm3 (0.02-0.50); Eosinophils Percent Auto 1.6 % (1.0-6.0); Hematocrit 38.6 % (35.0-49.0); Hemoglobin 12.2 g/dL (12.0-15.0); Immature Granulocyte Absolute 0.06 K/mm3 (0.00-0.00); Immature Granulocyte Percent A 0.8 % (0.0-0.0); Lymphocytes Absolute Auto 2.64 K/mm3 (1.10-4.50); Lymphocytes Percent Auto 34.6 % (18.0-42.0); Mean Corpuscular HGB Conc 31.6 g/dL (32.0-36.0); Mean Corpuscular Hemoglobin 28.8 pg (27.0-31.0); Mean Corpuscular Volume 91.3 fL (78.0-102.0); Mean Platelet Volume 9.6 fl (9.2-11.8); Monocytes Absolute Auto 0.45 K/mm3 (0.10-0.90); Monocytes Percent Auto 5.9 % (2.0-11.0); Neutrophils Absolute Auto 4.3 K/mm3 (1.7-7.2); Neutrophils Percent Auto 56.7 % (50.0-70.0); Platelet Count Result 187 K/mm3 (150-420); Red Blood Count 4.23 M/mm3 (4.20-5.40); Red Cell Distribution Width 13.5 % (11.6-14.4); White Blood Count 7.6 K/mm3 (4.8-10.8)
[2022-01-18 01:25] LABS: Alanine Aminotransferase 21 U/L (14-59); Albumin Level 3.5 g/dL (3.4-5.0); Alkaline Phosphatase 79 U/L (46-116); Anion Gap 6 mmol/L (8-16); Aspartate Amino Transferase 16 U/L (15-37); Bilirubin,Total 0.2 mg/dL (0.00-1.00); Blood Urea Nitrogen 15 mg/dL (7-18); Calcium 8.6 mg/dL (8.5-10.1); Carbon Dioxide 28 mmol/L (21-32); Chloride 103 mmol/L (98-108); Estimated CRCL calculation 71 ml/min; Estimated Glomerular Filt Rate > 60; Glucose 140 mg/dL (70-99); NT Pro B Type Natriuretic Pept 74 pg/mL (0-125); Osmolality Calculated 286 mOsm/kg (285-295); Potassium 4.1 mmol/L (3.5-5.1); Sodium 137 mmol/L (136-145); Total Protein 7.5 g/dL (6.4-8.2); Troponin I 4.7 ng/L (0.00-60.4)
[2022-01-18 01:41] LABS: Influenza A QL RT-PCR Negative (Negative); Influenza B QL RT-PCR Negative (Negative); SARS-CoV-2 RNA PCR Negative (Negative)
--- NOTE | 2022-01-18 01:56 | ED.SOB ---
HPI - SOB/Dyspnea General Chief Complaint: Shortness of Breath/Dyspnea Stated Complaint: sob Time Seen by Provider: 01/18/22 00:09 Source: patient, family, RN notes reviewed and old records reviewed Mode of arrival: ambulatory Limitations: no limitations History of Present Illness MD elicited complaint: shortness of breath and pain with inspiration Pertinent past history: COPD Onset (ago): day(s) (2) Timing: progressively worsening Severity: moderate Exacerbating factors: exertion, coughing, inspiration and smoke Relieving factors: bronchodilators Known history of: COPD Associated symptoms: cough Treatment prior to arrival: bronchodilator Related Data Home oxygen amount: none Home Medications Medication Instructions Recorded Confirmed albuterol sulfate 90 mcg INHALATION PRN 01/18/22 Allergies Allergy/AdvReac Type Severity Reaction Status Date / Time Penicillins Allergy Hives Verified 01/18/22 00:24 codeine AdvReac Nausea Verified 01/18/22 00:24 Review of Systems Review of Systems: All systems reviewed & are unremarkable except as noted in HPI and below PMFSH Past Medical History Medical History Bronchitis COPD (chronic obstructive pulmonary disease) Type 2 diabetes mellitus Social History Social History Smoking status: Current every day smoker Alcohol intake: current Substance use type: does not use Exam Const: General: no acute distress Nutritional Appearance: well nourished Orientation/consciousness: patient oriented x3 HENMT: Head: normal to inspection Ears: external ears normal, TM's normal bilaterally and EAC's normal General nose exam: Normal external nose present and Normal nares present Face and sinus: sinuses nontender Mouth: Yes moist mucous membranes Eyes: Conjunctivae: conjunctivae normal Pupils: Equal, round and reactive pupils present EOM: EOMs intact bilaterally Neck: Neck: normal visual inspection and no lymphadenopathy Chest: Chest palpation & inspection: normal inspection of the chest Resp: Effort & Inspection: normal respiratory effort and tachypneic Auscultation: rhonchi and wheezes Cardio: Rate: tachycardic GI: GI Palp: Yes Soft to palpation and No Tenderness to palpation present (GI) Auscultation: normal bowel sounds : General: Yes bladder normal to palpation and Yes no CVA tenderness Back/Spine/Pelvis: Back: no CVA tenderness Skin: General skin exam: normal color Rashes: no rashes Neuro: General: patient oriented x3, moves all extremities, no meningeal signs, no focal motor deficits and CN's II-XI intact bilaterally Extrem: General: normal to inspection and no pedal edema Psych: Mental Status: mental status grossly normal Affect: Anxious affect present Thought content: Yes Normal thought content present Course Course Emergency Course: Pt was stable in the ED with less cough and no acute SOB or wheezing. Reevaluation(s) Reevaluation #1: VSS. Date: 01/18/22 Time: 00:59 Vital Signs Vital signs: Vital Signs Temperature 36.4 C L 01/18/22 00:26 Pulse Rate 107 H 01/18/22 00:26 Respiratory Rate 22 H 01/18/22 00:26 Blood Pressure 146/90 H 01/18/22 00:26 Pulse Oximetry 96 01/18/22 00:26 Temperature 36.4 C L 01/18/22 00:26 Pulse Rate 108 H 01/18/22 00:53 Respiratory Rate 20 01/18/22 00:53 Blood Pressure 146/90 H 01/18/22 00:26 Pulse Oximetry 97 01/18/22 00:53 MDM - SOB/Dyspnea Differential Diagnosis Differential diagnosis: Likely acute exacerbation of chronic obstructive airways disease and asthma with exacerbation Medical Records Attestation: I reviewed the patient's medical records. Lab Data Result diagrams: 01/18/22 00:52 01/18/22 00:52 Labs: Lab Results 01/18/22 01/18/22 01/18/22 Range/Units 00:52 00:52 00:52 WBC 7.6 (4.8-10.8) K/mm3 RBC 4.23 (4.20-5.40
[2022-01-18] MEDS: KETOROLAC (*BKC) 60 MG/2 ML VIAL IM (02:05)
[2022-01-18 02:59] VITALS: BP 139/80; PULSE 94; RESP 18; TEMP 36.5; O2SAT 94
== END 2022-01-18 03:00 | disposition home or self-care (01) ==
PROVIDERS: Emergency Provider Emergency Medicine; PCP Family Medicine
DX: J42 Unspecified chronic bronchitis (principal); Z20.822 Contact with and (suspected) exposure to COVID-19
CPT/HCPCS: 36415; 36600; 71045; 80053; 82805; 83880; 84484; 85025; 87081; 87502; 87880; 93005; 94640; 96365; 96372; 96375; 99284; A9270; C9803; J0696; J1885; J2930; U0003; U0005

== ENCOUNTER 2022-02-10 13:01 | Outpatient (CLI) | payer OTHER, SELFPAY | END 2022-02-10 13:02 | disposition home or self-care (01) | LOC: CHSCARD 13:03 | PROVIDERS: PCP Family Medicine; Visit Provider Family Medicine | DX: J44.9 Chronic obstructive pulmonary disease, unspecified (principal) | CPT/HCPCS: 94060 ==

== ENCOUNTER 2022-04-05 22:24 | Emergency (ER) | payer OTHER, SELFPAY ==
--- NOTE | ~2022-04-05 | CT_ITS ---
EXAMINATION: CT abdomen pelvis wo con DATE: 04/05/2022 23:22 INDICATION: Posterior abdominal pain radiating toward right groin TECHNIQUE: Computed tomography (CT) of the abdomen and pelvis was performed without intravenous contr ast. Automated exposure control and iterative reconstruction technique were employed. Exam dose: 617 .96 mGy-cm total exam DLP. COMPARISON: 10/05/2014 CT abdomen pelvis FINDINGS: The lung bases are clear. Normal heart size. No pericardial or pleural effusion. Number is contracted. The liver, bile ducts, spleen, pancreas, pancreatic duct and adrenal glands are unremarkable. No renal mass lesion or urinary tract calculus or hydroureteronephrosis. The urinary bladder, uterus and adnexal areas are unremarkable. Postoperative change of small bowel in right lower quadrant; no b owel obstruction or free air. Severe degenerative disc disease at L5-S1 and mild to moderate degenera tive disease at the lumbar interspaces. No suspicious osteolytic or osteoblastic lesions. There is at herosclerotic calcification of the abdominal aorta and iliac arteries. No intraperitoneal or retroper itoneal or pelvic mass lesion or adenopathy or ascites. IMPRESSION: Postoperative change of the small bowel, right lower quadrant; no bowel obstruction or f ree air Multilevel degenerative disc disease of the lumbar spine, most severe at L5-S1 Reviewed, dictated and finalized at [facility]. Reviewed, dictated and finalized at location B. IMPRESSION: Postoperative change of the small bowel, right lower quadrant; no bowel obstruction or free air Multilevel degenerative disc disease of the lumbar spine, most severe at L5-S1
--- NOTE | 2022-04-05 22:51 | PC.NURSE ---
pt states that the only home medication that she takes is Metformin 500mg daily
[2022-04-05 22:53] VITALS: BP 149/78; PULSE 91; RESP 18; TEMP 36.4; O2SAT 97
[2022-04-05 23:32] LABS: Basophils Absolute Auto 0.03 K/mm3 (0.00-0.10); Basophils Percent Auto 0.5 % (0.0-1.0); Eosinophils Absolute Auto 0.08 K/mm3 (0.02-0.50); Eosinophils Percent Auto 1.3 % (1.0-6.0); Hematocrit 39.8 % (35.0-49.0); Hemoglobin 12.6 g/dL (12.0-15.0); Immature Granulocyte Absolute 0.02 K/mm3 (0.00-0.00); Immature Granulocyte Percent A 0.3 % (0.0-0.0); Lymphocytes Absolute Auto 2.35 K/mm3 (1.10-4.50); Lymphocytes Percent Auto 37.1 % (18.0-42.0); Mean Corpuscular HGB Conc 31.7 g/dL (32.0-36.0); Mean Corpuscular Hemoglobin 28.6 pg (27.0-31.0); Mean Corpuscular Volume 90.5 fL (78.0-102.0); Monocytes Absolute Auto 0.33 K/mm3 (0.10-0.90); Monocytes Percent Auto 5.2 % (2.0-11.0); Neutrophils Absolute Auto 3.5 K/mm3 (1.7-7.2); Neutrophils Percent Auto 55.6 % (50.0-70.0); Platelet Count Result 174 K/mm3 (150-420); Red Cell Distribution Width 13.6 % (11.6-14.4); White Blood Count 6.3 K/mm3 (4.8-10.8)
[2022-04-05] MEDS: PANTOPRAZOLE SODIUM IV 40 MG VIAL IV PUSH (23:47)
[2022-04-05] MEDS: SODIUM CHLORIDE 0.9% IV 1,000 ML 999 ML IV CONT (23:47)
[2022-04-05] MEDS: ONDANSETRON INJ 4 MG/2 ML VIAL IV PUSH (23:48)
[2022-04-05] MEDS: KETOROLAC (*BKC) 60 MG/2 ML VIAL IM (23:48)
[2022-04-05 23:49] LABS: Alanine Aminotransferase 22 U/L (14-59); Albumin Level 3.7 g/dL (3.4-5.0); Alkaline Phosphatase 73 U/L (46-116); Anion Gap 6 mmol/L (8-16); Aspartate Amino Transferase 12 U/L (15-37); Bilirubin,Total 0.2 mg/dL (0.00-1.00); Blood Urea Nitrogen 19 mg/dL (7-18); Carbon Dioxide 29 mmol/L (21-32); Chloride 104 mmol/L (98-108); Estimated CRCL calculation 55 ml/min; Estimated Glomerular Filt Rate 49; Glucose 107 mg/dL (70-99); Lipase 118 U/L (73-393); Osmolality Calculated 290 mOsm/kg (285-295); Potassium 4.2 mmol/L (3.5-5.1); Sodium 139 mmol/L (136-145); Total Protein 7.5 g/dL (6.4-8.2)
[2022-04-05 23:52] LABS: Add Urine Microscopic? NO; Appearance Urine Clear (Clear); Bilirubin Urine Negative (Negative); Blood Urine Negative (Negative); Color Urine Yellow (Yellow); Glucose Urine UA Negative (Negative); Ketones Urine Negative (Negative); Leukocyte Esterase Ur Negative LEU/UL (Negative); Nitrate Urine Negative (Negative); Protein Urine Negative (Negative); Specific Grav Ur <= 1.005 (1.010-1.020); Urobilinogen Urine 0.2 mg/dL (0.2-1.0)
[2022-04-05 23:54] LABS: Lactic Acid Reflex 0.3 mmol/L (0.4-2.0)
[2022-04-06 00:01] VITALS: BP 143/71; PULSE 73; RESP 16; O2SAT 97
--- NOTE | 2022-04-06 00:42 | ED.ABDPAIN ---
HPI - Abdominal Pain General Chief Complaint: Abdominal Pain Stated Complaint: possible kidney infection Time Seen by Provider: 04/05/22 22:28 Source: patient and RN notes reviewed Mode of arrival: ambulatory Limitations: no limitations History of Present Illness MD elicited complaint: abdominal pain Pertinent past history: past UTI Onset (ago): day(s) (1) Pain Consistency: constant Location: diffuse Severity: mild Pain scale (0-10): 3 Quality: cramping and dull Relieving factors: nothing Associated symptoms: nausea Related Data Patient : No Home Medications Medication Instructions Recorded Confirmed metformin 500 mg tablet 500 mg PO DAILY 04/05/22 04/05/22 Allergies Allergy/AdvReac Type Severity Reaction Status Date / Time Penicillins Allergy Hives Verified 04/05/22 22:50 codeine AdvReac Nausea Verified 04/05/22 22:50 Review of Systems Review of Systems: All systems reviewed & are unremarkable except as noted in HPI and below Constitutional: Constitutional: Reports no additional constitutional complaints Eyes: Eyes: Reports no additional eye complaints ENT: Reports system reviewed and no additional complaints, except as documented Cardiovascular: Cardiovascular: Reports no additional cardiovascular complaints Respiratory: Respiratory: Reports no additional respiratory complaints Gastrointestinal: Gastrointestinal: Reports abdominal pain Genitourinary: Genitourinary: Reports no additional female genitourinary complaints Musculoskeletal: Musculoskeletal: Reports no additional musculoskeletal complaints Integumentary/Breasts: Skin/Breast: Reports system reviewed and no additional complaints, except as docu Neurologic: Reports system reviewed and no additional complaints, except as documented Psychiatric: Psychiatric: Reports no additional psychiatric complaints Endocrine: Endocrine: Reports no additional endocrine complaints Hematologic/Lymphatic: Hematologic/Lymphatic: Reports no additional hematologic/lymphatic complaints Allergic/Immunologic: Allergic/Immunologic: Reports no additional allergic/immunologic complaints PMFSH Past Medical History Medical History (Updated 05/04/22 @ 19:28 by Win Carrasco MD) Abdominal pain Bronchitis COPD (chronic obstructive pulmonary disease) Type 2 diabetes mellitus Social History Social History Smoking status: Current every day smoker Alcohol intake: current Substance use type: does not use Exam Const: General: healthy appearing and no acute distress Nutritional Appearance: well nourished Orientation/consciousness: patient oriented x3 Limitations: no limitations HENMT: Head: normal to inspection Ears: external ears normal, TM's normal bilaterally and EAC's normal General nose exam: Normal external nose present and Normal nares present Face and sinus: normal facial exam and sinuses nontender Mouth: Yes Normal oral and palatal mucosa present and Yes moist mucous membranes Teeth and gingiva: dentition normal Throat: posterior oropharynx normal Eyes: Conjunctivae: conjunctivae normal Pupils: Equal, round and reactive pupils present EOM: EOMs intact bilaterally Neck: Neck: normal visual inspection, no lymphadenopathy and no meningeal signs Chest: Chest palpation & inspection: normal inspection of the chest Resp: Effort & Inspection: normal respiratory effort Auscultation: clear to auscultation bilaterally Cardio: Rate: regular rate Rhythm: regular rhythm GI: GI Palp: Yes Soft to palpation and Yes Tenderness to palpation present (GI) (minimally tender periumbilical) Auscultation: normal bowel sounds : General: Yes bladder normal to palpation and Yes no CVA tenderness Bimanual exam- vagina & uterus: bladder normal to palpation Back/Spine/Pelvis: Back: no CVA tenderness Skin: General skin exam: normal color Rashes: no rashes Wounds: no wounds Neuro: Gene
[2022-04-06 01:51] VITALS: BP 124/67; PULSE 70; RESP 17; TEMP 36.4; O2SAT 99
== END 2022-04-06 01:52 | disposition home or self-care (01) ==
PROVIDERS: Emergency Provider Emergency Medicine; PCP Family Medicine
DX: R10.9 Unspecified abdominal pain (principal); J44.9 Chronic obstructive pulmonary disease, unspecified; E11.9 Type 2 diabetes mellitus without complications; F17.200 Nicotine dependence, unspecified, uncomplicated
CPT/HCPCS: 36415; 74176; 80053; 81003; 83605; 83690; 85025; 96361; 96372; 96374; 96375; 99284; C9113; J1885; J2405; J7030

== ENCOUNTER 2022-06-12 16:21 | Emergency (ER) | payer OTHER, SELFPAY ==
--- NOTE | ~2022-06-12 | CT_ITS ---
EXAMINATION: CT abdomen pelvis wo con DATE: 06/12/2022 17:23 INDICATION: Abdominal and flank pain TECHNIQUE: Computed tomography (CT) of the abdomen and pelvis was performed without intravenous contr ast. Automated exposure control and iterative reconstruction technique were employed. Exam dose: 501 .25 mGy-cm total exam DLP. COMPARISON: 04/05/2022 CT abdomen pelvis FINDINGS: The lung bases are clear. Normal heart size. No pericardial or pleural effusion. The liver, gallbladder, bile ducts, spleen, pancreas and pancreatic duct are unremarkable. Normal morphology of the adrenal glands. No renal mass lesion or urinary tract calculus or hydroureteronephrosis is detected. Normal caliber of the abdominal aorta. No intraperitoneal or retroperitoneal or pelvic mass lesion or adenopathy or ascites. Postoperative change, right lower quadrant. No bowel obstruction, pneumatosis or intraperitoneal free air. Retroverted uterus. Adnexal areas and urinary bladder are unremarkable. Very small fat-containing umbilical hernia. Included skeletal structures are unremarkable other than prominent degenerative disc disease at L5-S1 . IMPRESSION: Postoperative change, right lower quadrant No bowel obstruction or free air No urinary tract calculus or hydroureteronephrosis No significant change since 04/05/2022 Reviewed, dictated and finalized at [facility]. Reviewed, dictated and finalized at location A.
[2022-06-12 16:50] VITALS: BP 131/71; PULSE 77; RESP 18; TEMP 36.4; O2SAT 99
[2022-06-12] MEDS: SODIUM CHLORIDE 0.9% IV 1,000 ML 999 ML IV CONT (17:25)
[2022-06-12] MEDS: KETOROLAC 30 MG/ML VIAL (*BKC) IV PUSH (17:25)
[2022-06-12 17:48] LABS: Basophils Absolute Auto 0.03 K/mm3 (0.00-0.10); Basophils Percent Auto 0.7 % (0.0-1.0); Eosinophils Absolute Auto 0.08 K/mm3 (0.02-0.50); Eosinophils Percent Auto 1.8 % (1.0-6.0); Hematocrit 35.9 % (35.0-49.0); Hemoglobin 11.7 g/dL (12.0-15.0); Immature Granulocyte Absolute 0.01 K/mm3 (0.00-0.00); Immature Granulocyte Percent A 0.2 % (0.0-0.0); Lymphocytes Absolute Auto 1.92 K/mm3 (1.10-4.50); Mean Corpuscular HGB Conc 32.6 g/dL (32.0-36.0); Mean Corpuscular Hemoglobin 29.4 pg (27.0-31.0); Mean Corpuscular Volume 90.2 fL (78.0-102.0); Mean Platelet Volume 9.4 fl (9.2-11.8); Monocytes Absolute Auto 0.24 K/mm3 (0.10-0.90); Monocytes Percent Auto 5.4 % (2.0-11.0); Neutrophils Absolute Auto 2.2 K/mm3 (1.7-7.2); Neutrophils Percent Auto 48.9 % (50.0-70.0); Platelet Count Result 160 K/mm3 (150-420); Red Blood Count 3.98 M/mm3 (4.20-5.40); Red Cell Distribution Width 13.8 % (11.6-14.4); White Blood Count 4.5 K/mm3 (4.8-10.8)
[2022-06-12 17:49] LABS: Add Urine Microscopic? YES; Appearance Urine Clear (Clear); Bilirubin Urine Negative (Negative); Blood Urine Negative (Negative); Color Urine Light Yellow (Yellow); Glucose Urine UA Negative (Negative); Ketones Urine Negative (Negative); Leukocyte Esterase Ur Trace (Negative); Nitrate Urine Negative (Negative); Protein Urine Negative (Negative); Urobilinogen Urine 0.2 mg/dL (0.2-1.0)
[2022-06-12 18:00] LABS: Amorphous Sediment Urine Moderate; Bacteria Urine 1+ /hpf; Squamous Epithelial Cell Urine Many /hpf (Few); WBC Urine 0-3 /hpf (0-3)
[2022-06-12 18:02] LABS: Alanine Aminotransferase 18 U/L (14-59); Albumin Level 3.4 g/dL (3.4-5.0); Alkaline Phosphatase 62 U/L (46-116); Anion Gap 6 mmol/L (8-16); Aspartate Amino Transferase 15 U/L (15-37); Bilirubin,Total 0.2 mg/dL (0.00-1.00); Blood Urea Nitrogen 7 mg/dL (7-18); Calcium 8.5 mg/dL (8.5-10.1); Carbon Dioxide 29 mmol/L (21-32); Chloride 105 mmol/L (98-108); Estimated CRCL calculation 72 ml/min; Estimated Glomerular Filt Rate > 60; Glucose 88 mg/dL (70-99); Lipase 129 U/L (73-393); Osmolality Calculated 287 mOsm/kg (285-295); Potassium 3.7 mmol/L (3.5-5.1); Sodium 140 mmol/L (136-145); Total Protein 6.7 g/dL (6.4-8.2)
[2022-06-12 18:07] LABS: Lactic Acid Reflex 0.6 mmol/L (0.4-2.0)
--- NOTE | 2022-06-12 18:08 | ED.ABDPAIN ---
HPI - Abdominal Pain General Chief Complaint: Abdominal Pain Stated Complaint: severe stomach pain Time Seen by Provider: 06/12/22 16:30 Source: patient Mode of arrival: ambulatory History of Present Illness HPI narrative: this is a 57-year-old female who presents with abdominal pain with some diarrhea and dysuria with no fever chills other is no chest pain or shortness of breath rates her pain at about a 6/10 with some nausea. MD elicited complaint: abdominal pain Onset (ago): hour(s) Pain Consistency: intermittent Severity: mild Quality: cramping Migration to: no migration Exacerbating factors: nothing Relieving factors: nothing Related Data Home Medications Medication Instructions Recorded Confirmed metformin 500 mg tablet 500 mg PO DAILY 04/05/22 06/12/22 Allergies Allergy/AdvReac Type Severity Reaction Status Date / Time Penicillins Allergy Hives Verified 04/05/22 22:50 codeine AdvReac Nausea Verified 04/05/22 22:50 Review of Systems Review of Systems: All systems reviewed & are unremarkable except as noted in HPI and below PMFSH Past Medical History Medical History Abdominal pain Bronchitis COPD (chronic obstructive pulmonary disease) Type 2 diabetes mellitus Social History Social History Smoking status: Current every day smoker Alcohol intake: current Substance use type: does not use Exam Const: General: healthy appearing and no acute distress Limitations: no limitations HENMT: Head: normal to inspection General nose exam: Normal external nose present Face and sinus: normal facial exam Eyes: Conjunctivae: conjunctivae normal Neck: Neck: normal visual inspection Chest: Chest palpation & inspection: normal inspection of the chest Resp: Effort & Inspection: normal respiratory effort Cardio: Rate: regular rate Rhythm: regular rhythm GI: GI Palp: Yes Soft to palpation Back/Spine/Pelvis: Back: no CVA tenderness Skin: General skin exam: normal color Rashes: no rashes Neuro: General: patient oriented x3 Cranial nerves: Yes Nystagmus not present Speech: normal speech Extrem: General: normal to inspection Psych: Mental Status: mental status grossly normal Affect: normal affect Course Course Emergency Course: CT scan of abdomen reviewed with patient blood work reviewed and UA performed shows 1+ bacteria Vital Signs Vital signs: Vital Signs Temperature 36.4 C L 06/12/22 16:50 Pulse Rate 77 06/12/22 16:50 Respiratory Rate 18 06/12/22 16:50 Blood Pressure 131/71 06/12/22 16:50 Pulse Oximetry 99 06/12/22 16:50 Oxygen Delivery Room Air 06/12/22 16:50 Temperature 36.4 C L 06/12/22 16:50 Pulse Rate 77 06/12/22 16:50 Respiratory Rate 18 06/12/22 16:50 Blood Pressure 131/71 06/12/22 16:50 Pulse Oximetry 99 06/12/22 16:50 Oxygen Delivery Room Air 06/12/22 16:50 MDM - Abdominal Pain Lab Data Result diagrams: 06/12/22 17:41 06/12/22 17:41 Labs: Lab Results 06/12/22 06/12/22 06/12/22 Range/Units 17:38 17:41 17:41 WBC 4.5 L (4.8-10.8) K/mm3 RBC 3.98 L (4.20-5.40) M/mm3 Hgb 11.7 L (12.0-15.0) g/dL Hct 35.9 (35.0-49.0) % MCV 90.2 (78.0-102.0) fL MCH 29.4 (27.0-31.0) pg MCHC 32.6 (32.0-36.0) g/dL RDW 13.8 (11.6-14.4) % Plt Count 160 (150-420) K/mm3 MPV 9.4 (9.2-11.8) fl Immature Gran % (Auto) 0.2 H (0.0-0.0) % Neut % (Auto) 48.9 L (50.0-70.0) % Lymph % (Auto) 43.0 H (18.0-42.0) % Lucas % (Auto) 5.4 (2.0-11.0) % Eos % (Auto) 1.8 (1.0-6.0) % Baso % (Auto) 0.7 (0.0-1.0) % Lymph # (Auto) 1.92 (1.10-4.50) K/mm3 Lucas # (Auto) 0.24 (0.10-0.90) K/mm3 Eos # (Auto) 0.08 (0.02-0.50) K/mm3 Baso # (Auto) 0.03 (0.00-0.10) K/mm3 Abs Immat Gran (auto) 0.01 H (0.00-0.00) K/mm3 Absolute Neut
[2022-06-12 18:17] VITALS: BP 148/79; PULSE 78; RESP 20; TEMP 36.9; O2SAT 97
== END 2022-06-12 18:32 | disposition home or self-care (01) ==
PROVIDERS: Emergency Provider Emergency Medicine; PCP Family Medicine
DX: K52.9 Noninfective gastroenteritis and colitis, unspecified (principal); N30.00 Acute cystitis without hematuria
CPT/HCPCS: 36415; 74176; 80053; 81001; 83605; 83690; 85025; 96361; 96374; 99284; J1885; J7030

== ENCOUNTER 2023-02-16 15:29 | Emergency (ER) | payer OTHER, SELFPAY ==
[2023-02-16 15:30] VITALS: BP 117/63; PULSE 78; RESP 20; TEMP 36.9; O2SAT 97
--- NOTE | 2023-02-16 15:33 | ED.GENADULT ---
HPI - General Adult General Chief complaint: Neck Pain/Injury Stated complaint: neck/arm pain Time Seen by Provider: 02/16/23 15:31 History of Present Illness HPI narrative: 57yo woman presents with 2 days slow onset neck and back pain, bilateral. no inciting trauma. no numbness or weakness. ROS + for dysuria and chills. Related Data Home Medications Medication Instructions Recorded Confirmed metformin 500 mg tablet 500 mg PO DAILY 04/05/22 06/12/22 Allergies Allergy/AdvReac Type Severity Reaction Status Date / Time Penicillins Allergy Hives Verified 04/05/22 22:50 codeine AdvReac Nausea Verified 04/05/22 22:50 Review of Systems Review of Systems: All systems reviewed & are unremarkable except as noted in HPI and below Constitutional: Constitutional: Reports chills and Denies fever(s) ENT: Denies dizziness Cardiovascular: Cardiovascular: Denies chest pain Respiratory: Respiratory: Denies dyspnea Genitourinary: Genitourinary: Reports dysuria Musculoskeletal: Musculoskeletal: Reports as per HPI and Reports back pain Neurologic: Denies numbness and Denies weakness PMFSH Past Medical History Medical History Abdominal pain Bronchitis COPD (chronic obstructive pulmonary disease) Type 2 diabetes mellitus Social History Social History Smoking status: Current every day smoker Alcohol intake: current Substance use type: does not use Living arrangements: with family Exam Const: General: healthy appearing, no acute distress and alert Nutritional Appearance: well nourished HENMT: Head: normal to inspection and no contusions Eyes: Conjunctivae: conjunctivae normal Resp: Effort & Inspection: normal respiratory effort and not labored Cardio: Rate: regular rate GI: Inspection: non-distended Back/Spine/Pelvis: Back: no CVA tenderness Other: no midline spinal tenderness Skin: General skin exam: normal color, no jaundice and no pallor Neuro: General: patient oriented x3 and moves all extremities Gait exam (Neuro): Normal gait present Medical Decision Making [facility] Narrative Medical decision making narrative: neck pain and dysuria DDx likely muscle tension and spasm, osteoarthritis, urinary tract infection, muscle strain Discharge Plan Discharge Clinical Impression: Neck muscle spasm, Acute cystitis without hematuria, Acute upper back pain Patient Disposition: Home, Self-Care Condition: Stable Instructions: Antibiotic Form, Neck Pain (ED) Prescriptions: New cephalexin 500 mg capsule 500 mg PO TID 5 Days Qty: 15 0RF methocarbamol 500 mg tablet 1,000 mg PO Q6H PRN (Reason: muscle pain) Qty: 40 0RF No Action metformin 500 mg tablet 500 mg PO DAILY ibuprofen 800 mg tablet 800 mg PO TID Qty: 20 0RF omeprazole magnesium [Prilosec OTC] 20 mg tablet,delayed release (DR/EC) 20 mg PO BID Qty: 20 0RF tramadol 50 mg tablet 50 mg PO BID PRN (Reason: pain) Qty: 4 0RF tramadol [Ultram] 50 mg tablet 50 mg PO Q6H PRN (Reason: pain) Qty: 20 0RF nitrofurantoin monohyd/m-cryst [Macrobid] 100 mg capsule 100 mg PO Q12H 7 Days Qty: 14 0RF Rx Instructions: must administer with a meal/food Follow-up/Referrals: Reagan Fonseca MD [Primary Care Provider] - Time of Disposition: 16:38
[2023-02-16] MEDS: methocarbamoL 500 MG TABLET 1000 MG PO (15:50)
[2023-02-16] MEDS: ACETAMINOPHEN 500 MG TABLET 1000 MG PO (15:50)
[2023-02-16] MEDS: ORPHENADRINE CITRATE 30 MG/ML 2 ML VIAL 60 MG IM (15:51)
[2023-02-16] MEDS: KETOROLAC (*BKC) 60 MG/2 ML VIAL IM (15:51)
[2023-02-16 15:56] LABS: Appearance Urine Clear (Clear); Bilirubin Urine Negative (Negative); Blood Urine Negative (Negative); Color Urine Light Yellow (Yellow); Glucose Urine UA Negative (Negative); Ketones Urine Negative (Negative); Leukocyte Esterase Ur Negative LEU/UL (Negative); Nitrate Urine Negative (Negative); Protein Urine Negative (Negative); Specific Grav Ur <= 1.005 (1.010-1.020); Urobilinogen Urine 0.2 mg/dL (0.2-1.0)
[2023-02-16 15:57] LABS: Add Urine Microscopic? NO
[2023-02-16 16:40] VITALS: BP 119/63; PULSE 62; RESP 20; O2SAT 96
[2023-02-16 16:56] VITALS: BP 122/70; PULSE 68; RESP 20; O2SAT 98
== END 2023-02-16 17:01 | disposition home or self-care (01) ==
PROVIDERS: Emergency Provider Emergency Medicine; PCP Family Medicine
DX: N30.00 Acute cystitis without hematuria (principal); M54.6 Pain in thoracic spine; M62.838 Other muscle spasm; J44.9 Chronic obstructive pulmonary disease, unspecified; E11.9 Type 2 diabetes mellitus without complications; F17.200 Nicotine dependence, unspecified, uncomplicated; Z79.84 Long term (current) use of oral hypoglycemic drugs
CPT/HCPCS: 81003; 96372; 99284; A9270; J1885; J2360

== ENCOUNTER 2023-03-11 15:32 | Outpatient (CLI) | payer OTHER, SELFPAY ==
--- NOTE | ~2023-03-11 | XR_ITS ---
EXAM: XR cervical spine 4-5V DATE: 03/11/2023 16:04 HISTORY: CERVICAL PAIN AND LIMITED RANGE OF MOTION X 1 MONTH/NO INJUR . COMPARISON: None available. FINDINGS: The dens appears asymmetric with respect to the lateral masses of C1, likely due to head r otation. Craniocervical association and atlantoaxial joint are otherwise aligned, with mild degenerat laura change. No prevertebral soft tissue swelling. 2 mm anterolisthesis at C4-5. Reversed cervical daina dosis, centered at C5-6. Vertebral body heights are maintained. Mild disc space narrowing at C4-5. Mo derate disc space narrowing at C5-6 and C6-7. Multilevel moderate facet sclerosis and hypertrophy. IMPRESSION: Grade 1 anterolisthesis at C4-5. Moderate multilevel cervical spondylosis. Moderate multi level facet arthropathy. Reviewed, dictated and finalized at location K. IMPRESSION: Grade 1 anterolisthesis at C4-5. Moderate multilevel cervical spond ylosis. Moderate multilevel facet arthropathy.
[2023-03-11 15:48] LABS: Basophils Absolute Auto 0.02 K/mm3 (0.00-0.10); Basophils Percent Auto 0.4 % (0.0-1.0); Eosinophils Absolute Auto 0.06 K/mm3 (0.02-0.50); Eosinophils Percent Auto 1.3 % (1.0-6.0); Hematocrit 39.2 % (35.0-49.0); Hemoglobin 12.5 g/dL (12.0-15.0); Immature Granulocyte Absolute 0.02 K/mm3 (0.00-0.00); Immature Granulocyte Percent A 0.4 % (0.0-0.0); Lymphocytes Absolute Auto 1.65 K/mm3 (1.10-4.50); Mean Corpuscular HGB Conc 31.9 g/dL (32.0-36.0); Mean Corpuscular Hemoglobin 29.1 pg (27.0-31.0); Mean Corpuscular Volume 91.4 fL (78.0-102.0); Mean Platelet Volume 8.9 fl (9.2-11.8); Monocytes Absolute Auto 0.21 K/mm3 (0.10-0.90); Monocytes Percent Auto 4.6 % (2.0-11.0); Neutrophils Absolute Auto 2.6 K/mm3 (1.7-7.2); Neutrophils Percent Auto 57.3 % (50.0-70.0); Platelet Count Result 170 K/mm3 (150-420); Red Blood Count 4.29 M/mm3 (4.20-5.40); Red Cell Distribution Width 13.8 % (11.6-14.4); White Blood Count 4.6 K/mm3 (4.8-10.8)
[2023-03-11 16:15] LABS: MALB Creatinine Ratio 19.2 mg/g (0-30); Microalbumin Urine Random < 13.0 mg/L
[2023-03-11 16:24] LABS: Alanine Aminotransferase 11 U/L (14-59); Albumin Level 3.5 g/dL (3.4-5.0); Alkaline Phosphatase 70 U/L (46-116); Anion Gap 7 mmol/L (8-16); Aspartate Amino Transferase 13 U/L (15-37); Bilirubin,Total 0.2 mg/dL (0.00-1.00); Blood Urea Nitrogen 12 mg/dL (7-18); Calcium 9.1 mg/dL (8.5-10.1); Carbon Dioxide 30 mmol/L (21-32); Chloride 105 mmol/L (98-108); Estimated Glomerular Filt Rate > 60; Glucose 101 mg/dL (70-99); Osmolality Calculated 293 mOsm/kg (285-295); Potassium 4.4 mmol/L (3.5-5.1); Sodium 142 mmol/L (136-145); Total Protein 7.2 g/dL (6.4-8.2)
[2023-03-11 16:29] LABS: Hemoglobin A1C 6.5 % (<5.7)
== END 2023-03-11 15:33 | disposition home or self-care (01) ==
PROVIDERS: PCP Family Medicine; Visit Provider Family Medicine
DX: E11.9 Type 2 diabetes mellitus without complications (principal); M54.2 Cervicalgia; M43.12 Spondylolisthesis, cervical region
CPT/HCPCS: 36415; 72050; 80053; 82043; 83036; 85025

== ENCOUNTER 2023-12-02 15:35 | Emergency (ER) | payer OTHER, SELFPAY ==
--- NOTE | ~2023-12-02 | CT_ITS ---
EXAMINATION: CT abdomen pelvis w con DATE: 12/02/2023 16:58 INDICATION: Abdominal pain, diarrhea and nausea TECHNIQUE: Computed tomography (CT) of the abdomen and pelvis was performed with 100 cc Omnipaque 350 intravenous contrast. The dose-length product was 719.37 mGy-cm. Automated exposure control and iter ative reconstruction technique were employed. COMPARISON: CT dated 06/12/2022. FINDINGS: There is a 3 mm nodule right middle lobe. There is 4 mm right middle lobe nodule. Heart siz e is normal. Mild hepatomegaly. The spleen, pancreas, adrenal glands and kidneys are unremarkable. Ga llbladder is present. There is atherosclerosis of the aorta. Gallbladder is present. No free air or f ree fluid. No significant vascular abnormality. No lymphadenopathy. Moderate lumbar spondylosis. IMPRESSION: 1. Hepatomegaly. 2: Right middle lobe nodules measuring 4 mm or less, likely benign. Recommend follow-up low dose CT chest in 12 months. Reviewed, dictated and finalized at location A.
--- NOTE | ~2023-12-02 | XR_ITS ---
XR chest 2V INDICATION: Cough TECHNIQUE: 2 view chest. FINDINGS: Comparison to multiple prior studies sequentially, with oldest reviewed study dated . There is mild left interstitial prominence and peribronchial cuffing. There is no focal consolidatio n, pleural effusion, or pneumothorax. The cardiomediastinal silhouette is normal. IMPRESSION: 1. Findings most consistent with left-sided bronchiolitis versus an atypical or viral pneumonia. Reviewed, dictated and finalized at location A. IMPRESSION: 1. Findings most consistent with left-sided bronchiolitis versus an atypical o r viral pneumonia.
--- NOTE | 2023-12-02 15:37 | ED.ABDPAIN ---
HPI - Abdominal Pain General Chief Complaint: Abdominal Pain <Sariah Mckenna MD - Last Filed: 12/03/23 12:23> Stated Complaint: abdominal pain <Sariah Mckenna MD - Last Filed: 12/03/23 12:23> Time Seen by Provider: 12/02/23 15:36 <Sariah Mckenna MD - Last Filed: 12/03/23 12:23> History of Present Illness HPI narrative: Patient is a 58 year old female with history of chronic neck and shoulder pain, COPD, DM here with multiple symptoms including abdominal pain, diarrhea, constipation, cough, congestion. She notes that the abdominal pain began yesterday, located in her epigastrium, radiates throughout her abdomen and into bilateral flank. The pain was associated with some constipation yesterday but today she began having liquid stools. She has had multiple liquid stools today, no blood, no recent antibiotic use. She suspected she could maybe have a UTI as she has had UTIs in the past, began taking an over the counter treatment for it which has turned her urine orange. She notes associated nausea. She denies fever or chills. She additionally endorses a cough and congestion which have been present for about 2 weeks. She has chest pain with coughing. No prior cardiac history. <Sariah Mckenna MD - Last Filed: 12/03/23 12:23> Related Data Home Medications: Home Medications Medication Instructions Recorded Confirmed metformin 500 mg tablet 500 mg PO DAILY 04/05/22 02/16/23 <Sariah Mckenna MD - Last Filed: 12/03/23 12:23> Allergies/Adverse Reactions: Allergies Allergy/AdvReac Type Severity Reaction Status Date / Time Penicillins Allergy Hives Verified 02/16/23 16:48 codeine AdvReac Nausea Verified 02/16/23 16:48 <Sariah Mckenna MD - Last Filed: 12/03/23 12:23> Review of Systems Review of Systems: All systems reviewed & are unremarkable except as noted in HPI and below <Sariah Mckenna MD - Last Filed: 12/03/23 12:23> PMFSH Past Medical History Medical History: Medical History Abdominal pain Bronchitis COPD (chronic obstructive pulmonary disease) Type 2 diabetes mellitus <Sariah Mckenna MD - Last Filed: 12/03/23 12:23> Social History Social History: Social History Smoking status: Current every day smoker Alcohol intake: current Substance use type: does not use Living arrangements: with family <Sariah Mckenna MD - Last Filed: 12/03/23 12:23> Exam Narrative: GENERAL: Ill-appearing, well-nourished, and in no acute distress. HEAD: Normocephalic, atraumatic. EYES: PERRLA and EOMI. ENT: Nares clear. Mucous membranes dry. NECK: Supple. CHEST: Clear to auscultation. No respiratory distress. HEART: Regular rate and rhythm. Normal peripheral pulses. ABDOMEN: Soft, diffusely tender, worst in the epigastrium, no rebound or guarding. Bilateral CVA tenderness present, nondistended. EXTREMITIES: Normal range of motion. No edema. SKIN: Warm, dry, no rash. NEURO: No focal deficits. Alert and oriented x3. PSYCH: Normal mood and affect. <Sariah Mckenna MD - Last Filed: 12/03/23 12:23> Course Course Emergency Course: Chart review performed. Patient here in the past for UTIs, abdominal pain, COVID. Triage vitals normal aside from hypertension. Patient seen and evaluated, ill appearing with abdominal tenderness along with some respiratory symptoms. Will do CT abdomen pelvis, lab work, UA to evaluate for intraabdominal infectious process. Will additionally do IVF, zofran, pepcid. CXR and viral swabs ordered given respiratory symptoms. Will do EKG and troponin, low suspicion for ACS given chest pain seems to be triggered by coughing. <Sariah Mckenna MD - Last Filed: 12/03/23 12:23> Chart review performed. Patient here in the past for UTIs, abdominal pain, COVID. Triage vitals normal aside from hypertension. Patient seen and evaluated, ill appearing with abdominal tenderness along with s
[2023-12-02 15:41] VITALS: BP 173/84; PULSE 84; RESP 19; TEMP 37; O2SAT 96
--- NOTE | 2023-12-02 15:43 | ECG_ITS ---
Measurements Intervals [place] Rate: 83 P: 77 [place]: 149 QRS: 58 QRSD: 95 T: 59 QT: 389 QTc: 459 Interpretive Statements SINUS RHYTHM INCOMPLETE RIGHT BUNDLE BRANCH BLOCK BORDERLINE ST-T WAVE ABNORMALITY- DIFFUSE LEADS BASELINE ARTIFACT- AVR, AVL, V4 BORDERLINE ECG COMPARED TO ECG 01/18/2022 00:47:10 SINUS RHYTHM NOW PRESENT Electronically Signed On 12-02-2023 15:59:58 CDT by Escobar Bonilla D.O.
[2023-12-02 15:47] LABS: Appearance Urine Clear (Clear); Bilirubin Urine Negative (Negative); Blood Urine Negative (Negative); Glucose Urine UA 1+ (Negative); Ketones Urine Trace (Negative); Leukocyte Esterase Ur Trace LEU/UL (Negative); Nitrate Urine Positive (Negative); Protein Urine 1+ (Negative)
[2023-12-02] MEDS: LACTATED RINGERS 1,000 ML 999 ML IV CONT (16:04)
[2023-12-02] MEDS: ONDANSETRON INJ 4 MG/2 ML VIAL IV PUSH (16:04)
[2023-12-02] MEDS: PANTOPRAZOLE SODIUM IV 40 MG VIAL IV PUSH (16:04)
[2023-12-02 16:13] LABS: Basophils Absolute Auto 0.03 K/mm3 (0.00-0.10); Basophils Percent Auto 0.5 % (0.0-1.0); Eosinophils Absolute Auto 0.07 K/mm3 (0.02-0.50); Eosinophils Percent Auto 1.2 % (1.0-6.0); Hemoglobin 11.8 g/dL (12.0-15.0); Immature Granulocyte Absolute 0.02 K/mm3 (0.00-0.00); Immature Granulocyte Percent A 0.3 % (0.0-0.0); Lymphocytes Absolute Auto 1.86 K/mm3 (1.10-4.50); Lymphocytes Percent Auto 32.3 % (18.0-42.0); Mean Corpuscular HGB Conc 31.1 g/dL (32-36); Mean Corpuscular Hemoglobin 28.1 pg (27.0-31.0); Mean Corpuscular Volume 90.5 fL (78.0-102.0); Mean Platelet Volume 9.6 fl (9.2-11.8); Monocytes Absolute Auto 0.31 K/mm3 (0.10-0.90); Monocytes Percent Auto 5.4 % (2.0-11.0); Neutrophils Absolute Auto 3.46 K/mm3 (1.70-7.20); Neutrophils Percent Auto 60.3 % (50.0-70.0); Platelet Count Result 161 K/mm3 (150-420); Red Cell Distribution Width 13.2 % (11.6-14.4); White Blood Count 5.8 K/mm3 (4.8-10.8)
[2023-12-02 16:20] LABS: Pregnancy On Board Control Positive; Urine Pregnancy Test Negative
[2023-12-02 16:31] LABS: Alanine Aminotransferase 16 U/L (14-59); Albumin Level 3.5 g/dL (3.4-5.0); Alkaline Phosphatase 70 U/L (46-116); Anion Gap 9 mmol/L (8-16); Aspartate Amino Transferase 32 U/L (15-37); Bilirubin,Total 0.3 mg/dL (0.00-1.00); Blood Urea Nitrogen 11 mg/dL (7-18); Calcium 8.6 mg/dL (8.5-10.1); Carbon Dioxide 28 mmol/L (21-32); Chloride 102 mmol/L (98-108); Estimated CRCL calculation 88 ml/min; Estimated Glomerular Filt Rate > 60; Glucose 101 mg/dL (70-99); Osmolality Calculated 287 mOsm/kg (285-295); Potassium 4.1 mmol/L (3.5-5.1); Sodium 139 mmol/L (136-145)
[2023-12-02 16:33] LABS: Lipase 37 U/L (16-77)
[2023-12-02 16:33] LABS: Add Urine Microscopic? YES; Bacteria Urine 1+ /hpf; Color Urine Dark Orange (Yellow); RBC Urine None seen /hpf (0-2); Squamous Epithelial Cell Urine Few /hpf (Few); WBC Urine 0-3 /hpf (0-3)
[2023-12-02 16:34] LABS: Troponin I < 4.0 ng/L (0.00-60.4)
[2023-12-02 16:43] LABS: CRP 2.6 mg/dL (0.0-0.9)
[2023-12-02 16:48] LABS: SARS-CoV-2 RNA PCR Negative (Negative)
[2023-12-02 16:49] LABS: Influenza A QL RT-PCR Negative (Negative); Influenza B QL RT-PCR Negative (Negative); Lactic Acid Reflex 0.8 mmol/L (0.4-2.0); RSV RNA, RT-PCR Negative (Negative)
[2023-12-02] MEDS: levoFLOXacin TAB 500 MG, levoFLOXacin TAB 250 MG 750 MG PO (17:45)
[2023-12-02 17:49] VITALS: BP 158/80; PULSE 79; RESP 20; TEMP 37; O2SAT 98
--- NOTE | 2023-12-04 14:46 | PC.NURSE ---
Final urine culture report, mixed genital moises isolated. Per ERP Dr. Rodriguez no further action or treatment needed.
== END 2023-12-02 17:56 | disposition home or self-care (01) ==
PROVIDERS: Student in an Organized Health Care Education/Training Program; Emergency Provider Family Medicine; PCP Family Medicine
DX: N39.0 Urinary tract infection, site not specified (principal); R91.1 Solitary pulmonary nodule; E11.9 Type 2 diabetes mellitus without complications; J44.9 Chronic obstructive pulmonary disease, unspecified; F17.200 Nicotine dependence, unspecified, uncomplicated; Z20.822 Contact with and (suspected) exposure to COVID-19
CPT/HCPCS: 36415; 71046; 74177; 80053; 81001; 81025; 83605; 83690; 83735; 84484; 85025; 86140; 87086; 87088; 87637; 93005; 96374; 96375; 99285; A9270; C9113; J2405; J7120; Q9967

== ENCOUNTER 2024-05-24 20:02 | Inpatient (IN) | payer OTHER, SELFPAY ==
[2024-05-24] VITALS (22 sets, daily range): BP systolic 135–160; BP diastolic 61–78; PULSE 92–115; RESP 18–36; TEMP 36.2; O2SAT 88–97; BMI 29.8
--- NOTE | ~2024-05-24 | XR_ITS ---
EXAMINATION: XR chest 1V portable DATE: 05/24/2024 20:23 INDICATION: Shortness of breath. TECHNIQUE: A single frontal view of the chest was obtained. COMPARISON: Chest 2 views 12/02/2023 FINDINGS: There is no pneumonia, pleural effusion, or pneumothorax. The heart size is normal. IMPRESSION: 1. No acute cardiopulmonary disease. Reviewed, dictated and finalized at location A.
[2024-05-24] MEDS: IPRATROPIUM 0.5 MG/ALBUTEROL SULFATE 2.5 MG AMPUL.NEB 3 ML INHALATION ×2 (20:15→20:38)
[2024-05-24] MEDS: methylPREDNISolone SOD SUCC 125 MG VIAL IV PUSH (20:33)
[2024-05-24 20:35] LABS: Basophils Absolute Auto 0.02 K/mm3 (0.00-0.10); Basophils Percent Auto 0.3 % (0.0-1.0); Eosinophils Absolute Auto 0.05 K/mm3 (0.02-0.50); Eosinophils Percent Auto 0.8 % (1.0-6.0); Hematocrit 35.6 % (35.0-49.0); Hemoglobin 11.6 g/dL (12.0-15.0); Immature Granulocyte Absolute 0.03 K/mm3 (0.00-0.00); Immature Granulocyte Percent A 0.5 % (0.0-0.0); Lymphocytes Absolute Auto 1.95 K/mm3 (1.10-4.50); Lymphocytes Percent Auto 30.4 % (18.0-42.0); Mean Corpuscular HGB Conc 32.6 g/dL (32-36); Mean Corpuscular Hemoglobin 29.2 pg (27.0-31.0); Mean Corpuscular Volume 89.7 fL (78.0-102.0); Mean Platelet Volume 9.3 fl (9.2-11.8); Monocytes Absolute Auto 0.32 K/mm3 (0.10-0.90); Neutrophils Absolute Auto 4.04 K/mm3 (1.70-7.20); Platelet Count Result 156 K/mm3 (150-420); Red Blood Count 3.97 M/mm3 (4.20-5.40); Red Cell Distribution Width 13.2 % (11.6-14.4); White Blood Count 6.4 K/mm3 (4.8-10.8)
--- NOTE | 2024-05-24 21:20 | ED.SOB ---
HPI - SOB/Dyspnea General Chief Complaint: Shortness of Breath/Dyspnea Stated Complaint: shortness of breath Source: patient Mode of arrival: ambulatory Limitations: no limitations History of Present Illness HPI Narrative: this is a 59-year-old female with a history of COPD and smoking history recently completed a course of antibiotics by her primary care and continues to have shortness of breath with cough and congestion O2 saturations on the lower side at 92% on room air otherwise no chest pain no shortness of breath no abdominal pain cough is nonproductive with no fever chills. MD elicited complaint: shortness of breath and cough Pertinent past history: COPD Onset (ago): day(s) Related Data Home Medications Medication Instructions Recorded Confirmed metformin 500 mg tablet 500 mg PO DAILY 04/05/22 05/24/24 albuterol sulfate 90 mcg/actuation 90 mcg inhalation Q6H PRN SOB 05/24/24 05/24/24 aerosol inhaler omeprazole 40 mg capsule,delayed 40 mg PO DAILY 05/24/24 05/24/24 release Allergies Allergy/AdvReac Type Severity Reaction Status Date / Time Penicillins Allergy Hives Verified 05/24/24 20:09 codeine AdvReac Nausea Verified 05/24/24 20:09 Review of Systems Review of Systems: All systems reviewed & are unremarkable except as noted in HPI and below PMFSH Past Medical History Medical History Abdominal pain Bronchitis COPD (chronic obstructive pulmonary disease) Type 2 diabetes mellitus Social History Social History Smoking packs per day: 1.5 Smoking cigarettes per day: 30.0 Years smoked: 35 Smoking pack-years: 52.50 Smoking status: Current every day smoker Tobacco type: cigarettes Second hand tobacco smoke exposure: Yes Alcohol intake: never Substance use: never Substance use type: does not use Do You Feel Safe in your Home?: Yes Lack of Transportation: No Lack of Food: Never True Current Housing: I Have Housing Concerned About Future Housing: No Difficulty Paying Gas/Electric Bills: No Difficulty Paying for Meds: No Currently Unemployed: No Education: Grade School Difficulty w/ Childcare or Family Care: No Living arrangements: with family Spiritual care concerns: No Exam Const: General: healthy appearing and no acute distress Nutritional Appearance: well nourished Orientation/consciousness: patient oriented x3 Limitations: no limitations HENMT: Head: normal to inspection Eyes: Conjunctivae: conjunctivae normal Neck: Neck: normal visual inspection and no lymphadenopathy Chest: Chest palpation & inspection: normal inspection of the chest Resp: Effort & Inspection: normal respiratory effort Auscultation: diminished lung sounds Cardio: Rate: tachycardic Rhythm: regular rhythm GI: GI Palp: Yes Soft to palpation Auscultation: normal bowel sounds : General: Yes bladder normal to palpation Skin: General skin exam: normal color Rashes: no rashes Neuro: General: patient oriented x3 and moves all extremities Course Course Emergency Course: Patient received DuoNeb to treatments stacked, along with a dose of 125mg Solu-Medrol and 2g of magnesium patient symptoms have improved chest x-ray shows no acute cardiopulmonary disease, labs reviewed. Vital Signs Vital signs: Vital Signs Oxygen Delivery Room Air 05/24/24 20:02 Temperature 36.3 C L 05/27/24 07:45 Pulse Rate 84 05/27/24 11:15 Respiratory Rate 16 05/27/24 07:45 Blood Pressure 114/64 05/27/24 07:45 Pulse Oximetry 93 05/27/24 11:15 Oxygen Delivery Room Air 05/27/24 11:15 Oxygen Flow Rate 1 05/27/24 10:30 MDM - SOB/Dyspnea Lab Data 05/27/24 07:33 05/27/24 07:33 Labs: Lab Results 05/24/24 05/25/24 05/25/24 Range/Units 20:21 05:55 10:59 WBC 6.4 3.5 L (4.8-10.8) K/mm3 RBC 3.97 L 3.91 L
[2024-05-24] MEDS: MAGNESIUM SULF 2 GM/WATER 50ML 2 GM/50 ML BAG IVPB (21:24)
[2024-05-24 21:31] LABS: SARS-CoV-2 RNA PCR Negative (Negative)
[2024-05-24 21:32] LABS: Influenza A QL RT-PCR Negative (Negative); Influenza B QL RT-PCR Negative (Negative); RSV RNA, RT-PCR Negative (Negative)
[2024-05-24 21:56] LABS: Alanine Aminotransferase 13 U/L (6-35); Alkaline Phosphatase 68 U/L (38-126); Anion Gap 10 mmol/L (4-12); Aspartate Amino Transferase 23 U/L (14-36); Bilirubin,Total 0.2 mg/dL (0.2-1.3); Blood Urea Nitrogen 10 mg/dL (7-17); Calcium 9.2 mg/dL (8.4-10.2); Carbon Dioxide 27 mmol/L (22-30); Chloride 103 mmol/L (98-107); Estimated CRCL calculation 93 ml/min; Estimated Glomerular Filt Rate > 60; Glucose 137 mg/dL (65-110); Osmolality Calculated 291 mOsm/kg (285-295); Potassium 3.8 mmol/L (3.4-5.0); Sodium 140 mmol/L (137-145)
[2024-05-24 22:04] LABS: NT Pro B Type Natriuretic Pept 179 pg/mL (19.9-100)
--- NOTE | 2024-05-24 22:30 | ADMGEN ---
This patient, Jacque Santiago, was admitted to 2nd Floor Room 210-1. Patient oriented to hospital policies and general routines including ID bracelet, bed and alarms, visiting hours, pain management, procedures, bathroom and other care routines, personal items, smoking policy, room service/diet, and visiting hours. Information on how to activate the Rapid Response Team has been discussed. Patient are encouraged to report perceived risks to care and to ask questions if they do not understand what they are told or what they should do.
[2024-05-24] MEDS: SODIUM CHLORIDE 0.9% IV 1,000 ML 100 ML IV CONT (22:52)
[2024-05-24] MEDS: levoFLOXacin 500 MG/D5W 100 ML 500 MG/100 ML BAG 100 MG IVPB (22:54)
[2024-05-25] VITALS (12 sets, daily range): BP systolic 129–138; BP diastolic 72–88; PULSE 74–92; RESP 16–22; TEMP 36.2–37.2; O2SAT 90–99
[2024-05-25] MEDS: methylPREDNISolone SOD SUCC 40 MG VIAL IV PUSH ×4 (00:06→21:04)
[2024-05-25] MEDS: ACETAMINOPHEN 325 MG TABLET 650 MG PO ×3 (00:06→22:10)
[2024-05-25] MEDS: IPRATROPIUM 0.5 MG/ALBUTEROL SULFATE 2.5 MG AMPUL.NEB 3 ML INHALATION ×4 (00:06→17:49)
[2024-05-25] MEDS: ALPRAZolam (*CRX) 0.5 MG TABLET PO ×2 (00:06→22:10)
[2024-05-25 06:03] LABS: Hematocrit 35.9 % (35.0-49.0); Hemoglobin 11.5 g/dL (12.0-15.0); Mean Corpuscular Hemoglobin 29.4 pg (27.0-31.0); Mean Corpuscular Volume 91.8 fL (78.0-102.0); Mean Platelet Volume 9.6 fl (9.2-11.8); Platelet Count Result 152 K/mm3 (150-420); Red Blood Count 3.91 M/mm3 (4.20-5.40); Red Cell Distribution Width 13.4 % (11.6-14.4); White Blood Count 3.5 K/mm3 (4.8-10.8)
[2024-05-25 06:40] LABS: Band Neutrophils Percent 0 % (0-6); Lymphocytes Percent Manual 23 % (18-44); Monocytes Percent Manual 0 % (3-9); Neutrophils Absolute Manual 2.69 K/mm3 (1.7-7.2); Neutrophils Percent Manual 77 % (46-73); Platelet Estimate Adequate (Adequate); Total Cells Counted 100
--- NOTE | 2024-05-25 09:12 | PM.IMHP ---
H&P: HPI History of Present Illness Date/Time: 05/25/24 09:12 Chief Complaint: Shortness of breath/dyspnea Narrative: This is a 59 year old female a significant past medical history of COPD, type 2 diabetes mellitus, bronchitis, current everyday smoker who presents with shortness breath/dyspnea. patient states that she started feeling short of breath with cough and went to her primary care physician about a week ago and was started on azithromycin and was given an albuterol inhaler. She finished her azithromycin course and was still not feeling better. She did try to use her albuterol inhaler but still felt short of breath and presented to the hospital for further evaluation. she denies any chest pain, fever, chills, nausea, vomiting, diarrhea. She is reporting right sided abdominal pain that wraps around to her back, shortness of breath with productive cough. Workup the hospital included a chest x-ray which was negative. Initial labs showed a normal white blood cell count 6.4, hemoglobin 11 point, proBNP 179. Respiratory panel was obtained and was negative for influenza a and B, RSV, and COVID. Cultures were obtained and are pending. Patient was given DuoNeb breathing treatments, 2 g of magnesium, Levaquin, and Solu-Medrol while in the ED for COPD exacerbation. Review of Systems Review of Systems: All systems reviewed & are unremarkable except as noted in HPI and below Constitutional: Constitutional: Reports as per HPI and Reports no additional constitutional complaints Eyes: Eyes: Reports as per HPI and Reports no additional eye complaints ENT: Reports system reviewed and no additional complaints, except as documented and Reports as per HPI Cardiovascular: Cardiovascular: Reports as per HPI and Reports no additional cardiovascular complaints Respiratory: Respiratory: Reports as per HPI and Reports no additional respiratory complaints Gastrointestinal: Gastrointestinal: Reports as per HPI and Reports no additional gastrointestinal complaints Genitourinary: Genitourinary: Reports no additional female genitourinary complaints and Reports as per HPI Musculoskeletal: Musculoskeletal: Reports no additional musculoskeletal complaints and Reports as per HPI Integumentary/Breasts: Skin/Breast: Reports system reviewed and no additional complaints, except as docu and Reports as per HPI Neurologic: Reports system reviewed and no additional complaints, except as documented and Reports as per HPI Psychiatric: Psychiatric: Reports no additional psychiatric complaints and Reports as per HPI [facility] Past Medical History Medical History Abdominal pain Bronchitis COPD (chronic obstructive pulmonary disease) Type 2 diabetes mellitus Social History Social History Smoking packs per day: 1.5 Smoking cigarettes per day: 30.0 Years smoked: 35 Smoking pack-years: 52.50 Smoking status: Current every day smoker Tobacco type: cigarettes Second hand tobacco smoke exposure: Yes Alcohol intake: never Substance use: never Substance use type: does not use Do You Feel Safe in your Home?: Yes Lack of Transportation: No Lack of Food: Never True Current Housing: I Have Housing Concerned About Future Housing: No Difficulty Paying Gas/Electric Bills: No Difficulty Paying for Meds: No Currently Unemployed: No Education: Grade School Difficulty w/ Childcare or Family Care: No Living arrangements: with family Spiritual care concerns: No Meds Home Medications and Allergies Home Medications Medication Instructions Recorded Confirmed Type metformin 500 mg tablet 500 mg PO DAILY 04/05/22 05/24/24 History albuterol sulfate 90 mcg/actuation 90 mcg inhalation Q6H PRN SOB 05/24/24 05/24/24 History aerosol inhaler omeprazole 40 mg capsule,delayed 40 mg PO DAILY 05/24/24 05/24/24 History release
[2024-05-25] MEDS: NICOTINE (*PBKC) 21 MG PATCH 1 PATCH TRANSDERM (09:14)
[2024-05-25] MEDS: PANTOPRAZOLE 40 MG TABLET PO ×2 (09:15→16:35)
[2024-05-25] MEDS: metFORMIN HCL 500 MG TABLET PO (09:15)
[2024-05-25 10:09] LABS: Alanine Aminotransferase 21 U/L (6-35); Alkaline Phosphatase 73 U/L (38-126); Anion Gap 13 mmol/L (4-12); Aspartate Amino Transferase 22 U/L (14-36); Bilirubin,Total 0.1 mg/dL (0.2-1.3); Blood Urea Nitrogen 9 mg/dL (7-17); Calcium 9.3 mg/dL (8.4-10.2); Carbon Dioxide 23 mmol/L (22-30); Chloride 104 mmol/L (98-107); Estimated CRCL calculation 93 ml/min; Estimated Glomerular Filt Rate > 60; Glucose 237 mg/dL (65-110); Osmolality Calculated 296 mOsm/kg (285-295); Potassium 3.7 mmol/L (3.4-5.0); Sodium 140 mmol/L (137-145)
[2024-05-25] MEDS: AZITHROMYCIN 250 MG TABLET 500 MG PO (10:51)
[2024-05-25] MEDS: guaiFENesin 12 HR 600 MG TABCR PO ×2 (10:51→22:10)
[2024-05-25] MEDS: LORATADINE 10 MG TABLET PO (10:51)
[2024-05-25 11:10] LABS: Appearance Urine Clear (Clear); Bilirubin Urine Negative (Negative); Blood Urine Negative (Negative); Color Urine Yellow (Yellow); Glucose Urine UA 4+ (Negative); Ketones Urine Negative (Negative); Nitrate Urine Negative (Negative); Protein Urine Trace (Negative); Urobilinogen Urine Normal mg/dL (0.2-1.0)
[2024-05-25 11:11] LABS: Add Urine Microscopic? YES; Leukocyte Esterase Ur Negative LEU/UL (Negative)
[2024-05-25 11:18] LABS: Bacteria Urine Trace /hpf; RBC Urine None seen /hpf (0-2); Squamous Epithelial Cell Urine Moderate /hpf (Few); WBC Urine None seen /hpf (0-3)
[2024-05-25 11:55] LABS: Glucose Point of Care 236 mg/dl (65-105)
[2024-05-25] MEDS: INSULIN HUMAN LISPRO (*BKC) 1,000 UNITS/10 ML VIAL SUB-Q (12:00)
[2024-05-25] MEDS: ONDANSETRON INJ 4 MG/2 ML VIAL IV PUSH ×2 (14:05→21:03)
[2024-05-25] MEDS: MAGNESIUM HYDROXIDE SUSP 30 ML UDC PO (16:39)
[2024-05-25 20:58] LABS: Glucose Point of Care 156 mg/dl (65-105)
[2024-05-25] MEDS: MONTELUKAST SODIUM 10 MG TABLET PO (22:10)
[2024-05-25 22:13] LABS: Glucose Point of Care 356 mg/dl (65-105)
[2024-05-25] MEDS: DOCUSATE SODIUM 100 MG CAPSULE PO (22:14)
[2024-05-26] VITALS (11 sets, daily range): BP systolic 137–143; BP diastolic 57–58; PULSE 90–105; RESP 14–28; TEMP 35.9–36.7; O2SAT 87–93
[2024-05-26] MEDS: IPRATROPIUM 0.5 MG/ALBUTEROL SULFATE 2.5 MG AMPUL.NEB 3 ML INHALATION ×4 (00:18→17:37)
[2024-05-26] MEDS: methylPREDNISolone SOD SUCC 40 MG VIAL IV PUSH ×3 (05:48→16:44)
[2024-05-26] MEDS: ACETAMINOPHEN 325 MG TABLET 650 MG PO ×2 (05:52→20:49)
[2024-05-26 08:10] LABS: Glucose Point of Care 215 mg/dl (65-105)
[2024-05-26] MEDS: INSULIN HUMAN LISPRO (*BKC) 1,000 UNITS/10 ML VIAL SUB-Q ×3 (08:30→16:44)
--- NOTE | 2024-05-26 08:31 | P.PNIM_ITS ---
Progress Note: A&P Assessment and Plan (1) Acute respiratory failure with hypoxia: Code(s): J96.01 - Acute respiratory failure with hypoxia Status: Acute Assessment and Plan: 05/25/24: * patient was given loading dose of Solu-Medrol 125 mg IV push, 2 g of magnesium, DuoNebs while in the ED * continue DuoNebs * continue Solu-Medrol 40 mg IV push Q 8 hours * wean O2 for sat greater than 92% * nicotine patch ordered * will start Claritin, Singulair, and guaifenesin * Start Azithromycin 05/26/24: * currently on 3 L nasal cannula * O2 saturation ranging 90-93% * continue to wean O2 for sat greater than 88-92% considering history of COPD, she Likely runs lower than normal * will need a home O2 evaluation upon discharge * continue Claritin, Singulair, guaifenesin, Solu-Medrol, DuoNebs, azithromycin (2) COPD (chronic obstructive pulmonary disease): Qualifiers: COPD type: unspecified COPD Qualified Code(s): J44.9 - Chronic obstructive pulmonary disease, unspecified Code(s): J44.9 - Chronic obstructive pulmonary disease, unspecified Status: Chronic Assessment and Plan: 05/25/24: * will need outpatient PFT and evaluation by stitch bonding machine drawer in * she will also need rescue inhaler, nebulizer and DuoNebs ordered upon discharge * she was started on Claritin Singulair and guaifenesin * she also was started on azithromycin for COPD exacerbation and will need to be discharged on Solu-Medrol Dosepak or prednisone taper * continue to wean O2 for sat greater than 92% 05/26/24: * wean O2 for sat between 88-92% considering history of COPD * no other changes to treatment plan (3) Type 2 diabetes mellitus: Qualifiers: Diabetes mellitus group home insulin use: with group home use Code(s): E11.9 - Type 2 diabetes mellitus without complications Status: Chronic Assessment and Plan: 05/25/24: * Blood sugars ranging 101-137 * Hgb A1C 6.5 * Accu checks AC/HS * moderate dose SSI ordered * metformin placed on hold * hypoglycemic protocol in place * Diabetic diet ordered 05/26/24: * blood sugars ranging 215-221, likely higher than normal due to steroids * will switch to high-dose sliding scale Time Spent With Patient Time with patient: 25 - 35 minutes Subjective Date/time seen: 05/26/24 08:31 Interval history: interval history: This is a 59 year old female a significant past medical history of COPD, type 2 diabetes mellitus, bronchitis, current everyday smoker who presents with shortness breath/dyspnea. patient states that she started feeling short of breath with cough and went to her primary care physician about a week ago and was started on azithromycin and was given an albuterol inhaler. She finished her azithromycin course and was still not feeling better. She did try to use her albuterol inhaler but still felt short of breath and presented to the hospital for further evaluation. she denies any chest pain, fever, chills, nausea, vomiting, diarrhea. She is reporting right sided abdominal pain that wraps around to her back, shortness of breath with productive cough. Workup the hospital included a chest x-ray which was negative. Initial labs showed a normal white blood cell count 6.4, hemoglobin 11 point, proBNP 179. Respiratory panel was obtained and was negative for influenza a and B, RSV, and COVID. Cultures were obtained and are pending. Patient was given DuoNeb breathing treatments, 2 g of magnesium, Levaquin, and Solu-Medrol while in the ED for COPD exacerbation. subjective: 05/26/24: patient denies any
--- NOTE | 2024-05-26 08:31 | PM.IMPN ---
Progress Note: A&P Assessment and Plan (1) Acute respiratory failure with hypoxia: Code(s): J96.01 - Acute respiratory failure with hypoxia Status: Acute Assessment and Plan: 05/25/24: patient was given loading dose of Solu-Medrol 125 mg IV push, 2 g of magnesium, DuoNebs while in the ED continue DuoNebs continue Solu-Medrol 40 mg IV push Q 8 hours wean O2 for sat greater than 92% nicotine patch ordered will start Claritin, Singulair, and guaifenesin Start Azithromycin 05/26/24: currently on 3 L nasal cannula O2 saturation ranging 90-93% continue to wean O2 for sat greater than 88-92% considering history of COPD, she Likely runs lower than normal will need a home O2 evaluation upon discharge continue Claritin, Singulair, guaifenesin, Solu-Medrol, DuoNebs, azithromycin (2) COPD (chronic obstructive pulmonary disease): Qualifiers: COPD type: unspecified COPD Qualified Code(s): J44.9 - Chronic obstructive pulmonary disease, unspecified Code(s): J44.9 - Chronic obstructive pulmonary disease, unspecified Status: Chronic Assessment and Plan: 05/25/24: will need outpatient PFT and evaluation by safety and security manager she will also need rescue inhaler, nebulizer and DuoNebs ordered upon discharge she was started on Claritin Singulair and guaifenesin she also was started on azithromycin for COPD exacerbation and will need to be discharged on Solu-Medrol Dosepak or prednisone taper continue to wean O2 for sat greater than 92% 05/26/24: wean O2 for sat between 88-92% considering history of COPD no other changes to treatment plan (3) Type 2 diabetes mellitus: Qualifiers: Diabetes mellitus detention insulin use: with detention use Code(s): E11.9 - Type 2 diabetes mellitus without complications Status: Chronic Assessment and Plan: 05/25/24: Blood sugars ranging 101-137 Hgb A1C 6.5 Accu checks AC/HS moderate dose SSI ordered metformin placed on hold hypoglycemic protocol in place Diabetic diet ordered 05/26/24: blood sugars ranging 215-221, likely higher than normal due to steroids will switch to high-dose sliding scale Time Spent With Patient Time with patient: 25 - 35 minutes Subjective Date/time seen: 05/26/24 08:31 Interval history: interval history: This is a 59 year old female a significant past medical history of COPD, type 2 diabetes mellitus, bronchitis, current everyday smoker who presents with shortness breath/dyspnea. patient states that she started feeling short of breath with cough and went to her primary care physician about a week ago and was started on azithromycin and was given an albuterol inhaler. She finished her azithromycin course and was still not feeling better. She did try to use her albuterol inhaler but still felt short of breath and presented to the hospital for further evaluation. she denies any chest pain, fever, chills, nausea, vomiting, diarrhea. She is reporting right sided abdominal pain that wraps around to her back, shortness of breath with productive cough. Workup the hospital included a chest x-ray which was negative. Initial labs showed a normal white blood cell count 6.4, hemoglobin 11 point, proBNP 179. Respiratory panel was obtained and was negative for influenza a and B, RSV, and COVID. Cultures were obtained and are pending. Patient was given DuoNeb breathing treatments, 2 g of magnesium, Levaquin, and Solu-Medrol while in the ED for COPD exacerbation. subjective: 05/26/24: patient denies any new complaints today. Labs were reviewed. She is currently on 3 L nasal cannula, afebrile, vital signs are stable. Review of Systems Review of Systems: All systems reviewed & are unremarkable except as noted in HPI and below Constitutional: Constitutional: Reports as per HPI and Reports no additional constitutional complaints Eyes: Eyes: Reports as per HPI and Reports no addit
[2024-05-26 09:03] LABS: Basophils Absolute Auto 0.01 K/mm3 (0.00-0.10); Basophils Percent Auto 0.1 % (0.0-1.0); Hematocrit 33.6 % (35.0-49.0); Hemoglobin 10.6 g/dL (12.0-15.0); Immature Granulocyte Absolute 0.06 K/mm3 (0.00-0.00); Immature Granulocyte Percent A 0.6 % (0.0-0.0); Lymphocytes Absolute Auto 0.68 K/mm3 (1.10-4.50); Lymphocytes Percent Auto 7.2 % (18.0-42.0); Mean Corpuscular HGB Conc 31.5 g/dL (32-36); Mean Corpuscular Hemoglobin 28.9 pg (27.0-31.0); Mean Corpuscular Volume 91.6 fL (78.0-102.0); Mean Platelet Volume 9.6 fl (9.2-11.8); Monocytes Absolute Auto 0.16 K/mm3 (0.10-0.90); Monocytes Percent Auto 1.7 % (2.0-11.0); Neutrophils Absolute Auto 8.58 K/mm3 (1.70-7.20); Neutrophils Percent Auto 90.4 % (50.0-70.0); Platelet Count Result 153 K/mm3 (150-420); Red Blood Count 3.67 M/mm3 (4.20-5.40); Red Cell Distribution Width 13.9 % (11.6-14.4); White Blood Count 9.5 K/mm3 (4.8-10.8)
[2024-05-26] MEDS: NICOTINE (*PBKC) 21 MG PATCH 1 PATCH TRANSDERM (09:24)
[2024-05-26] MEDS: PANTOPRAZOLE 40 MG TABLET PO ×2 (09:25→16:44)
[2024-05-26] MEDS: AZITHROMYCIN 250 MG TABLET 500 MG PO (09:25)
[2024-05-26] MEDS: LORATADINE 10 MG TABLET PO (09:25)
[2024-05-26] MEDS: amLODIPine BESYLATE 5 MG TABLET PO (09:25)
[2024-05-26] MEDS: guaiFENesin 12 HR 600 MG TABCR PO ×2 (09:26→20:49)
[2024-05-26 10:18] LABS: Alanine Aminotransferase 14 U/L (6-35); Albumin Level 3.6 g/dL (3.5-5.1); Alkaline Phosphatase 60 U/L (38-126); Anion Gap 11 mmol/L (4-12); Aspartate Amino Transferase 25 U/L (14-36); Bilirubin,Total 0.1 mg/dL (0.2-1.3); Blood Urea Nitrogen 14 mg/dL (7-17); Carbon Dioxide 24 mmol/L (22-30); Chloride 104 mmol/L (98-107); Estimated CRCL calculation 80 ml/min; Estimated Glomerular Filt Rate > 60; Glucose 221 mg/dL (65-110); Osmolality Calculated 295 mOsm/kg (285-295); Potassium 4.4 mmol/L (3.4-5.0); Sodium 139 mmol/L (137-145)
[2024-05-26 11:55] LABS: Glucose Point of Care 202 mg/dl (65-105)
[2024-05-26 17:39] LABS: Glucose Point of Care 346 mg/dl (65-105)
[2024-05-26 20:47] LABS: Glucose Point of Care 289 mg/dl (65-105)
[2024-05-26] MEDS: ONDANSETRON INJ 4 MG/2 ML VIAL IV PUSH (20:49)
[2024-05-26] MEDS: MONTELUKAST SODIUM 10 MG TABLET PO (20:49)
[2024-05-27] VITALS (8 sets, daily range): BP systolic 114–148; BP diastolic 55–64; PULSE 84–94; RESP 16–22; TEMP 36.3–36.7; O2SAT 90–94
[2024-05-27] MEDS: IPRATROPIUM 0.5 MG/ALBUTEROL SULFATE 2.5 MG AMPUL.NEB 3 ML INHALATION ×2 (00:14→05:22)
[2024-05-27] MEDS: ALPRAZolam (*CRX) 0.5 MG TABLET PO (01:09)
[2024-05-27] MEDS: ACETAMINOPHEN 325 MG TABLET 650 MG PO (01:09)
--- NOTE | 2024-05-27 01:10 | PC.NURSE ---
Patient called nurses station, in tears with SOB, SPO2 at 93% on 2.5L/NC. Encouraged pt to deep breath, pt possibly having an anxiety attack, PRN Xanax given per request. Sat with pt and held her hand, spoke calmly with her, some improvement noted.
--- NOTE | 2024-05-27 07:47 | PM.IMPN ---
Progress Note: A&P Assessment and Plan (1) Acute respiratory failure with hypoxia: Code(s): J96.01 - Acute respiratory failure with hypoxia Status: Acute Assessment and Plan: 05/25/24: patient was given loading dose of Solu-Medrol 125 mg IV push, 2 g of magnesium, DuoNebs while in the ED continue DuoNebs continue Solu-Medrol 40 mg IV push Q 8 hours wean O2 for sat greater than 92% nicotine patch ordered will start Claritin, Singulair, and guaifenesin Start Azithromycin 05/26/24: currently on 3 L nasal cannula O2 saturation ranging 90-93% continue to wean O2 for sat greater than 88-92% considering history of COPD, she Likely runs lower than normal will need a home O2 evaluation upon discharge continue Claritin, Singulair, guaifenesin, Solu-Medrol, DuoNebs, azithromycin 05/27/24: Patient is down to 1L NC with O2 saturation of 90-93% Continue to wean for saturation 88-92% (2) COPD (chronic obstructive pulmonary disease): Qualifiers: COPD type: unspecified COPD Qualified Code(s): J44.9 - Chronic obstructive pulmonary disease, unspecified Code(s): J44.9 - Chronic obstructive pulmonary disease, unspecified Status: Chronic Assessment and Plan: 05/25/24: will need outpatient PFT and evaluation by ged teacher she will also need rescue inhaler, nebulizer and DuoNebs ordered upon discharge she was started on Claritin Singulair and guaifenesin she also was started on azithromycin for COPD exacerbation and will need to be discharged on Solu-Medrol Dosepak or prednisone taper continue to wean O2 for sat greater than 92% 05/26/24: wean O2 for sat between 88-92% considering history of COPD no other changes to treatment plan 05/27/24: No change to current treatment plan (3) Type 2 diabetes mellitus: Qualifiers: Diabetes mellitus jail insulin use: with jail use Code(s): E11.9 - Type 2 diabetes mellitus without complications Status: Chronic Assessment and Plan: 05/25/24: Blood sugars ranging 101-137 Hgb A1C 6.5 Accu checks AC/HS moderate dose SSI ordered metformin placed on hold hypoglycemic protocol in place Diabetic diet ordered 05/26/24: blood sugars ranging 215-221, likely higher than normal due to steroids will switch to high-dose sliding scale 05/27/24: BG ranging 221-346 Will add Lantus 10 units tonight. Continue high dose SSI Time Spent With Patient Time with patient: 25 - 35 minutes Subjective Date/time seen: 05/27/24 07:47 Interval history: interval history: This is a 59 year old female a significant past medical history of COPD, type 2 diabetes mellitus, bronchitis, current everyday smoker who presents with shortness breath/dyspnea. patient states that she started feeling short of breath with cough and went to her primary care physician about a week ago and was started on azithromycin and was given an albuterol inhaler. She finished her azithromycin course and was still not feeling better. She did try to use her albuterol inhaler but still felt short of breath and presented to the hospital for further evaluation. she denies any chest pain, fever, chills, nausea, vomiting, diarrhea. She is reporting right sided abdominal pain that wraps around to her back, shortness of breath with productive cough. Workup the hospital included a chest x-ray which was negative. Initial labs showed a normal white blood cell count 6.4, hemoglobin 11 point, proBNP 179. Respiratory panel was obtained and was negative for influenza a and B, RSV, and COVID. Cultures were obtained and are pending. Patient was given DuoNeb breathing treatments, 2 g of magnesium, Levaquin, and Solu-Medrol while in the ED for COPD exacerbation. subjective: 05/27/24: Patient denies any new complaints today. Labs were reviewed. She is currently on 1 L nasal cannula, afebrile, vital signs are stable. Review of Systems Rev
--- NOTE | 2024-05-27 07:47 | P.PNIM_ITS ---
Progress Note: A&P Assessment and Plan (1) Acute respiratory failure with hypoxia: Code(s): J96.01 - Acute respiratory failure with hypoxia Status: Acute Assessment and Plan: 05/25/24: * patient was given loading dose of Solu-Medrol 125 mg IV push, 2 g of magnesium, DuoNebs while in the ED * continue DuoNebs * continue Solu-Medrol 40 mg IV push Q 8 hours * wean O2 for sat greater than 92% * nicotine patch ordered * will start Claritin, Singulair, and guaifenesin * Start Azithromycin 05/26/24: * currently on 3 L nasal cannula * O2 saturation ranging 90-93% * continue to wean O2 for sat greater than 88-92% considering history of COPD, she Likely runs lower than normal * will need a home O2 evaluation upon discharge * continue Claritin, Singulair, guaifenesin, Solu-Medrol, DuoNebs, azithromycin 05/27/24: * Patient is down to 1L NC with O2 saturation of 90-93% * Continue to wean for saturation 88-92% (2) COPD (chronic obstructive pulmonary disease): Qualifiers: COPD type: unspecified COPD Qualified Code(s): J44.9 - Chronic obstructive pulmonary disease, unspecified Code(s): J44.9 - Chronic obstructive pulmonary disease, unspecified Status: Chronic Assessment and Plan: 05/25/24: * will need outpatient PFT and evaluation by divemaster * she will also need rescue inhaler, nebulizer and DuoNebs ordered upon discharge * she was started on Claritin Singulair and guaifenesin * she also was started on azithromycin for COPD exacerbation and will need to be discharged on Solu-Medrol Dosepak or prednisone taper * continue to wean O2 for sat greater than 92% 05/26/24: * wean O2 for sat between 88-92% considering history of COPD * no other changes to treatment plan 05/27/24: * No change to current treatment plan (3) Type 2 diabetes mellitus: Qualifiers: Diabetes mellitus long-term insulin use: with intermodal customer service use Code(s): E11.9 - Type 2 diabetes mellitus without complications Status: Chronic Assessment and Plan: 05/25/24: * Blood sugars ranging 101-137 * Hgb A1C 6.5 * Accu checks AC/HS * moderate dose SSI ordered * metformin placed on hold * hypoglycemic protocol in place * Diabetic diet ordered 05/26/24: * blood sugars ranging 215-221, likely higher than normal due to steroids * will switch to high-dose sliding scale 05/27/24: * BG ranging 221-346 * Will add Lantus 10 units tonight. * Continue high dose SSI Time Spent With Patient Time with patient: 25 - 35 minutes Subjective Date/time seen: 05/27/24 07:47 Interval history: interval history: This is a 59 year old female a significant past medical history of COPD, type 2 diabetes mellitus, bronchitis, current everyday smoker who presents with shortness breath/dyspnea. patient states that she started feeling short of breath with cough and went to her primary care physician about a week ago and was started on azithromycin and was given an albuterol inhaler. She finished her azithromycin course and was still not feeling better. She did try to use her albuterol inhaler but still felt short of breath and presented to the hospital for further evaluation. she denies any chest pain, fever, chills, nausea, vomiting, diarrhea. She is reporting right sided abdominal pain that wraps around to her back, shortness of breath with productive cough. Workup the hospital included a chest x-ray which was negative. Initial labs showed a normal white blood cell count 6.4, hemoglobin 11 point, proBNP 179. Respiratory panel was obtai
[2024-05-27 08:06] LABS: Basophils Absolute Auto 0.01 K/mm3 (0.00-0.10); Basophils Percent Auto 0.1 % (0.0-1.0); Hematocrit 33.4 % (35.0-49.0); Hemoglobin 10.7 g/dL (12.0-15.0); Immature Granulocyte Absolute 0.11 K/mm3 (0.00-0.00); Immature Granulocyte Percent A 1.3 % (0.0-0.0); Immature Platelet Fraction Pct 2.3 % (1.0-7.0); Lymphocytes Absolute Auto 1.94 K/mm3 (1.10-4.50); Lymphocytes Percent Auto 22.1 % (18.0-42.0); Mean Corpuscular Hemoglobin 29.6 pg (27.0-31.0); Mean Corpuscular Volume 92.3 fL (78.0-102.0); Mean Platelet Volume 9.5 fl (9.2-11.8); Monocytes Absolute Auto 0.43 K/mm3 (0.10-0.90); Monocytes Percent Auto 4.9 % (2.0-11.0); Neutrophils Percent Auto 71.6 % (50.0-70.0); Platelet Count Result 146 K/mm3 (150-420); Red Blood Count 3.62 M/mm3 (4.20-5.40); Red Cell Distribution Width 13.9 % (11.6-14.4); White Blood Count 8.8 K/mm3 (4.8-10.8)
--- NOTE | 2024-05-27 08:24 | PM.DS ---
DS: Admitting Diagnosis Discharge Date 05/27/24 Admitting Diagnosis Acute respiratory failure with hypoxia COPD Type 2 DM DS: Discharge Diagnosis Discharge Diagnosis (1) Acute respiratory failure with hypoxia: Code(s): J96.01 - Acute respiratory failure with hypoxia Status: Acute (2) COPD (chronic obstructive pulmonary disease): Qualifiers: COPD type: unspecified COPD Qualified Code(s): J44.9 - Chronic obstructive pulmonary disease, unspecified Code(s): J44.9 - Chronic obstructive pulmonary disease, unspecified Status: Chronic (3) Type 2 diabetes mellitus: Qualifiers: Diabetes mellitus vermin exterminator insulin use: with vermin exterminator use Code(s): E11.9 - Type 2 diabetes mellitus without complications Status: Chronic DS: Summary Hospital Course Reason for hospitalization: Acute respiratory failure with hypoxia COPD Type 2 DM Hospital Course: This is a 59 year old female a significant past medical history of COPD, type 2 diabetes mellitus, bronchitis, current everyday smoker who presents with shortness breath/dyspnea. patient states that she started feeling short of breath with cough and went to her primary care physician about a week ago and was started on azithromycin and was given an albuterol inhaler. She finished her azithromycin course and was still not feeling better. She did try to use her albuterol inhaler but still felt short of breath and presented to the hospital for further evaluation. she denies any chest pain, fever, chills, nausea, vomiting, diarrhea. She is reporting right sided abdominal pain that wraps around to her back, shortness of breath with productive cough. Workup the hospital included a chest x-ray which was negative. Initial labs showed a normal white blood cell count 6.4, hemoglobin 11 point, proBNP 179. Respiratory panel was obtained and was negative for influenza a and B, RSV, and COVID. Cultures were obtained and are pending. Patient was given DuoNeb breathing treatments, 2 g of magnesium, Levaquin, and Solu-Medrol while in the ED for COPD exacerbation. Patient has been weaned down to 1L NC. Normally does not wear O2 at home. O2 saturation between 88-93% currently. She denies any new complaints today. Home O2 evaluation today shown an O2 saturation of 90%. No home O2 needed. Patient is stable for discharge at this time. She will need to follow up with her primary care doctor in 1 week and make appointment with welding process engineer. I put in requisites for PFT and pulmonary rehab. Final diagnosis: Acute respiratory failure with hypoxia, acute exacerbation of COPD, anxiety Status at Discharge Cognitive/behavioral status at discharge: Alert and oriented x3 Functional status at discharge: independent ambulation Overall status at discharge: patient is progressing back to baseline Time Spent with Patient Time attestation: Total time spent providing and/or coordinating discharge services: Time spent: Greater than 30 minutes Exam Narrative: General: acutely ill appearing, well nourished Cardiac: Normal S1 and S2. RRR,No murmur, gallops or friction rubs, peripheral pulses intact. Respiratory: expiratory wheezing, productive cough, shortness a breath at rest, no use accessory muscles seen, currently on room air Gastrointestinal: soft, non-distended, normoactive bowel sounds. : voiding without difficulty. Neuro: Alert and oriented x4 DS: Data Data Completed and Pending Completed studies during hospitalization: Chest x-ray Pending studies at discharge: Blood cultures Labs on day of discharge: Labs from last 24 hours 05/27/24 05/26/24 05/26/24 07:33 20:42 16:41 WBC Pending RBC Pending Hgb Pending Hct Pending MCV Pending MCH Pending MCHC Pending RDW Pending Plt Count Pending MPV Pending Immature Gran % (Auto) Pending Neut % (Auto) Pending Lymph % (Auto) Pending [place] % (Auto) Pending
[2024-05-27 08:32] LABS: Glucose Point of Care 131 mg/dl (65-105)
[2024-05-27] MEDS: AZITHROMYCIN 250 MG TABLET 500 MG PO (09:58)
[2024-05-27] MEDS: amLODIPine BESYLATE 5 MG TABLET PO (09:58)
[2024-05-27] MEDS: NICOTINE (*PBKC) 21 MG PATCH 1 PATCH TRANSDERM (09:58)
[2024-05-27] MEDS: PANTOPRAZOLE 40 MG TABLET PO (09:58)
[2024-05-27] MEDS: LORATADINE 10 MG TABLET PO (09:58)
[2024-05-27] MEDS: guaiFENesin 12 HR 600 MG TABCR PO (09:58)
[2024-05-27 10:32] LABS: Alanine Aminotransferase 15 U/L (6-35); Alkaline Phosphatase 57 U/L (38-126); Anion Gap 6 mmol/L (4-12); Aspartate Amino Transferase 27 U/L (14-36); Bilirubin,Total 0.1 mg/dL (0.2-1.3); Blood Urea Nitrogen 14 mg/dL (7-17); Calcium 8.9 mg/dL (8.4-10.2); Carbon Dioxide 29 mmol/L (22-30); Chloride 104 mmol/L (98-107); Estimated CRCL calculation 93 ml/min; Estimated Glomerular Filt Rate > 60; Glucose 133 mg/dL (65-110); Osmolality Calculated 290 mOsm/kg (285-295); Potassium 3.7 mmol/L (3.4-5.0); Sodium 139 mmol/L (137-145)
[2024-05-27 12:02] LABS: Glucose Point of Care 103 mg/dl (65-105)
--- NOTE | 2024-05-27 13:20 | PC.NURSE ---
Patient discharging home. Patients sister here to transport her home. All discharge instructions and education reviewed with patient and sister, both parties state understanding. Patient has no IV site at time of discharge. All belongings gathered together and sent home with patient. Patient denies any questions at time of discharge. Patient instructed to remove nicotine patch if she decides to smoke once discharged. Patient accompanied to front door via wheelchair by this nurse. Left via private vehicle with sister.
--- NOTE | 2024-05-31 09:21 | PC.NURSE ---
Unable to reach for callback, phone has been changed or disconnected
== END 2024-05-27 13:20 | disposition home or self-care (01) | DRG 190 ==
LOC: CHSED 22:03 → CHS2ND 22:23
PROVIDERS: Nurse Practitioner Acute Care; Admitting Provider Internal Medicine; Emergency Provider Emergency Medicine; PCP Family Medicine; Visit Provider Internal Medicine
DX: J44.1 Chronic obstructive pulmonary disease with (acute) exacerbation (principal); J96.01 Acute respiratory failure with hypoxia; E11.9 Type 2 diabetes mellitus without complications; F17.210 Nicotine dependence, cigarettes, uncomplicated; F41.9 Anxiety disorder, unspecified
CPT/HCPCS: 36415; 71045; 80053; 81001; 82948; 83605; 83735; 83880; 85025; 85055; 87040; 87637; 94618; 94640; 96361; 96365; 96366; 96367; 96375; 96376; 99285; A9270; G0378; J1815; J1956; J2405; J2919; J3475; J7030

== ENCOUNTER 2024-12-18 16:31 | Emergency (ER) | payer OTHER, SELFPAY ==
--- NOTE | ~2024-12-18 | XR_ITS ---
CHEST RADIOGRAPH, PA AND LATERAL CLINICAL HISTORY: sob . COMPARISON: 05/24/2024 TECHNIQUE: PA and lateral views of the chest. FINDINGS The cardiomediastinal silhouette is unremarkable. The lungs are clear. Visualized osseous structures and soft tissues are unremarkable. IMPRESSION: No focal infiltrate or effusion. Reviewed, dictated and finalized at location A.
[2024-12-18 16:32] VITALS: BP 157/67; PULSE 75; RESP 18; TEMP 36.6; O2SAT 96
--- NOTE | 2024-12-18 17:08 | ED_ITS ---
HPI - Dental/Oral General Chief complaint: Dental/Oral Stated complaint: left side mouth pain Time Seen by Provider: 12/18/24 16:52 Source: patient and family Mode of arrival: ambulatory Limitations: no limitations History of Present Illness HPI Narrative: Patient is a 59-year-old female with left lower jaw pain and dental pain for the past few weeks. She has a planned to see a dentist in the next couple of we eks. Also she has some baseline shortness of breath with her COPD. MD Complaint: tooth pain ( Left lower mandible is missing teeth and having pain) Onset (ago): week(s) (2) Duration: constant Severity: moderate Severity scale (1-10): 5 Relieving factors: nothing Exacerbating factors: chewing, cold, heat and drinking fluids Context: history of dental caries and poor dental care Associated symptoms: other ( patient having shortness of breath as a separate issue with her COPD; she has albuterol only as an inhaler) Treatment prior to arrival: none Related Data Home Medications ?Medication ?Instructions ?Recorded ?Confirmed ?Last Taken ?Type metformin 500 mg tablet 500 mg PO DAILY 04/05/22 05/24/24 Unknown History albuterol sulfate 90 mcg/actuation 90 mcg inhalation Q6H PRN SOB 05/24/24 05/24/24 Unknown History aerosol inhaler omeprazole 40 mg capsule,delayed 40 mg PO DAILY 05/24/24 05/24/24 Unknown History release Allergies Allergy/AdvReac Type Severity Reaction Status Date / Time Penicillins Allergy Hives Verified 12/18/24 16:44 codeine AdvReac Nausea Verified 12/18/24 16:44 Review of Systems Review of Systems: All systems reviewed & are unremarkable except as noted in HPI and below Constitutional: Constitutional: Reports no additional constitutional complaints Eyes: Eyes: Reports no additional eye complaints ENT: Reports system reviewed and no additional complaints, except as documented Cardiovascular: Cardiovascular: Reports no additional cardiovascular complaints Respiratory: Respiratory: Reports no additional respiratory complaints Gastrointestinal: Gastrointestinal: Reports no additional gastrointestinal complaints Genitourinary: Genitourinary: Reports no additional female genitourinary complaints Musculoskeletal: Musculoskeletal: Reports no additional musculoskeletal complaints Integumentary/Breasts: Skin/Breast: Reports system reviewed and no additional complaints, except as docu Neurologic: Reports system reviewed and no additional complaints, except as documented Psychiatric: Psychiatric: Reports no additional psychiatric complaints Endocrine: Endocrine: Reports no additional endocrine complaints Hematologic/Lymphatic: Hematologic/Lymphatic: Reports no additional hematologic/lymphatic complaints Allergic/Immunologic: Allergic/Immunologic: Reports no additional allergic/immunologic complaints ON LICENSE OF [facility] Past Medical History Medical History Abdominal pain Bronchitis COPD (chronic obstructive pulmonary disease) Type 2 diabetes mellitus Social History Social History Smoking packs per day: 1.5 Smoking cigarettes per day: 30.0 Years smoked: 35 Smoking pack-years: 52.50 Smoking status: Current every day smoker Tobacco type: cigarettes Second hand tobacco smoke exposure: Yes Alcohol intake: never Substance use: never Substance use type: does not use Do You Feel Safe in your Home?: Yes Lack of Transportation: No Lack of Food: Never True Current Housing: I Have Housing Concerned About Future Housing: No Difficulty Paying Gas/Electric Bills: No Difficulty Paying for Meds: No Currently Unemployed: No Education: Grade School Difficulty w/ Childcare or Family Care: No Living arrangements: with family Spiritual care concerns: No Exam Const: General: healthy appearing Nutritional Appearance: well nourished Orientation/consciousness: patient oriented x3 Limitations: no limitations HENMT: Head: normal to inspection Ears: external ears normal Face/Nose/Sinus: Normal external nose present Other: left lower mandible and jaw is missing the entire back row of teeth with decay seen with residual area Eyes: Conjunctivae: conjunctivae normal Pupils: Equal, round and reactive pupils present EOM: EOMs intact bilaterally Neck: Neck: normal visual inspection Chest: Chest palpation & inspection: normal inspection of the chest Resp: Effort & Inspection: normal respiratory effort, not labored, no retractions, not tachypneic and no use of accessory muscles Auscultation: clear to auscultation bilaterally, no crackles, no rales, no rhonchi, no wheezes, breath sounds present and diminished lung sounds ( bilateral) Cardio: Rate: regular rate Rhythm: regular rhythm Heart sounds: no murmurs GI: Inspection: non-distended GI Palp: Yes Soft to palpation and No Tenderness to palpation present (GI) Auscultation: normal bowel sounds Other: patient in the middle of a workup for gallbladder syndrome having labs and ultrasound : General: Yes bladder normal to palpation Back/Spine/Pelvis: Back: no CVA tenderness Skin: General skin exam: normal color Rashes: no rashes Wounds: no wounds Neuro: General: patient oriented x3 Cranial nerves: Yes Nystagmus not present Speech: normal speech Extrem: General: normal to inspection Psych: Mental Status: mental status grossly normal Affect: normal affect Attitude: cooperative Course Vital Signs Vital signs: Vital Signs Oxygen Delivery Room Air 12/18/24 16:31 Temperature 36.6 C 12/18/24 16:32 Pulse Rate 75 12/18/24 16:32 Respiratory Rate 18 12/18/24 16:32 Blood Pressure 157/67 H 12/18/24 16:32 Pulse Oximetry 96 12/18/24 16:32 Oxygen Delivery Room Air 12/18/24 16:32 MDM - Dental/Oral MDM Narrative Medical decision making narrative: patient is a 59-year-old female with dental complaints as well as shortness of breath. We will do a chest x-ray for reassurance and the plan will be steroids and possibly Advair. Further we will do an antibiotic. Dentist as planned. Workup primary doctor in process for gallbladder disease. Imaging Data Attestation: I personally reviewed and interpreted this imaging study as follows: Radiologist's impression: Chest x-ray is negative for acute process Discharge Plan Discharge Clinical Impression: Mandible pain COPD (chronic obstructive pulmonary disease) Qualifiers: COPD type: unspecified COPD Qualified Code(s): J44.9 - Chronic obstructive pulmonary disease, unspecified Patient Disposition: Home, Self-Care Condition: Stable Instructions: Antibiotic Form, COPD (Chronic Obstructive Pulmonary Disease) (DC), Toothache (ED) Additional Instructions: please follow-up with primary doctor in the next week. Please see dentist as soon as possible. Patient Language: Spanish Prescriptions: New fluticasone propion-salmeterol [Advair HFA] 115-21 mcg/actuation HFA aerosol inhaler 2 puff inhalation BID Qty: 12 0RF clindamycin HCl [Cleocin HCl] 300 mg capsule 300 mg PO TID 10 Days Qty: 30 0RF No Action metformin 500 mg tablet 500 mg PO DAILY omeprazole 40 mg capsule,delayed release(DR/EC) 40 mg PO DAILY albuterol sulfate 90 mcg/actuation HFA aerosol inhaler 90 mcg INHALATION Q6H PRN (Reason: SOB) ipratropium-albuterol 0.5 mg-3 mg(2.5 mg base)/3 mL Solution For Nebulization 3 ml inhalation Q6HRT Qty: 30 0RF azithromycin [Zithromax] 250 mg Tablet 500 mg PO DAILY Qty: 2 0RF amlodipine [Norvasc] 5 mg Tablet 5 mg PO DAILY Qty: 30 2RF fexofenadine [Allergy Relief (fexofenadine)] 60 mg tablet 60 mg PO Q12H Qty: 60 2RF montelukast [Singulair] 10 mg Tablet 10 mg PO HS Qty: 30 2RF (DME) nebulizers [MC 300 Nebulizer w-Mouthpiece] Misc See Rx Instructions .Route Qty: 1 0RF Rx Instructions: As directed (DME) nebulizer accessories Kit See Rx Instructions .Route Qty: 1 0RF Rx Instructions: As directed methylprednisolone 4 mg tablets,dose pack See Rx Instructions .ROUTE .COMPLEX Qty: 21 0RF Rx Instructions: orally per package directions alprazolam [Xanax] 0.5 mg tablet 0.5 mg PO TID Qty: 20 0RF Follow-up/Referrals: Reagan Fonseca MD [Primary Care Provider] - Stand Alone Forms: Work/School Release IP
--- OUTSIDE RECORDS SUMMARY | 2024-12-18 17:31 | XMS_ITS | Encounter Summary ---
Author Organization [facility] Address [address] [place] [address] Care Team Providers Care Mangle Operator Garments Name Role Phone Unavailable Primary Care Provider Unavailabl e Encounter Details Date Type Department Care Team (Late st Contact Info) Description 12/03/2017 Abstract [facility] CONVERSION [address] [place] [address] , Generic Conversion, Social History Tobacco Use Types Packs/Day Years Used Date Smoking Tobacco: Never Assessed Comments Unknown Sex and Gender Information Value Date Recorded Sex Assigned at Not on file Legal Sex Female 4:11 PM CDT Gender Identity Not on file Sexual Orientation Not on file documented as of this encounter Plan of Treatment Not on file documented as of this encounter Visit Diagnoses Not on filedocumented in this encounter
--- OUTSIDE RECORDS SUMMARY | 2024-12-18 17:31 | XMS_ITS | Continuity of Care Document ---
Author Organization [facility] Address [address] [place] [address] Phone Care Team Providers Care Automobile Repair Service Estimator Name Role Phone Yohana Ray PT Unavailable Unavailable Procedures Procedure Date PT Evaluation Moderate Complexity Therapeutic Activities Neuromuscular Re-Ed Manual Therapy Advance Directives Directive Yes / No Effective Date File Name No Information Encounters Encounter Description Practice Location Reason(s) For Visit Diagnoses Date Provider Providers Copied on Encounter [facility], [address], [place], [place], [id number], tel:[phone] Diogenes No Information Flor Muller. . [facility], [address], [place], [place], [id number], tel:[phone] Diogenes No Information Flor Muller. . Family History Family Member Type Diagnosis Age At Onset No Information Payers Payer name Insurance type Covered democrat ID Authoriza tion(s) [employer] Medicare Replacement 16 [id number] Medicaid OON Write Off CI 00 Social History Type Description Quantity Date Captured Comments Sex Female Smoking Status No Information Chief Complaint And Reason For Visit No Information Reason For Referral Reason For Referral No Information Plan Of Treatment Date Type Action Status Goal Tobacco cessation counseling completed Goal Tobacco Cessation Counseling completed History Of Present Illness Encounter Date Complaint History Of Prese nt Illness No Information Functional Status Date Functional Assessmen t No Information Instructions Date Instruction Additional Infor mation No Information Assessments Type Assessment Date No Information Patient Care Teams Name Effective Dates (start - stop) Status Members No Information
--- OUTSIDE RECORDS SUMMARY | 2024-12-18 17:31 | XMS_ITS | Encounter Summary ---
Author Organization [facility] Address [address] [place] [address] Care Team Providers Care Net Software Developer Name Role Phone Unavailable Primary Care Provider Unavailabl e Encounter Details Date Type Department Care Team (Late st Contact Info) Description 02/24/2019 Abstract [facility] CONVERSION [address] [place] [address] , Generic Conversion, Social History Tobacco Use [...]
--- OUTSIDE RECORDS SUMMARY | 2024-12-18 17:31 | XMS_ITS | Clinical Summary ---
Author Organization [facility] Address [address] [place] [address] Care Team Providers Care Coal Unloader Name Role Phone Unavailable Primary Care Provider Unavailabl e Social History Tobacco Use Types Packs/Day Years Used Date Smoking Tobacco: Never Assessed Comments Unknown Sex and Gender Information Value Date Recorded Sex Assigned at Not on file Legal Sex Female 4:11 PM CDT Gender Identity Not on file Sexual Orientation Not on file Plan of Treatment Health Maintenance Due Date Last Done Comments Cervical Cancer Screening Pa p Smear (Age 30 to 64) Every 3 Years 1967 Colorectal Cancer Screening Colonoscopy (10 Years) 1967 Annual Physical 1970 Hepatitis C 1985 DTaP, Tdap and Td Vaccines ( 1 - Tdap) 1986 Hepatitis B Vaccines (1 of 3 - 19+ 3-dose series) 1986 Cervical Cancer Screening Pa p with HPV Testing (Age 30 to 64) Every 5 Years 1997 Cervical Cancer Screening with HPV 1997 Mammogram Screening 2007 Zoster Vaccines (1 of 2) 2017 COVID-19 Vaccine (2023-2 5 season) 2024 Influenza Adult (#1) 2024 Meningococcal B Vaccine Aged Out No l onger eligible based on patient's age to complete this topic Meningococcal Vaccine Aged Out No gina julio c eligible based on patient's age to complete this topic Pneumococcal Vaccine: Pediat rics (0 to 5 Years) and At-Risk Patients (6 to 64 Years) Aged Out No longer eligible b ased on patient's age to complete this topic RSV Immunizations Under 20 Months Aged Out No longer eligible based on patient's age to complete this topic
--- OUTSIDE RECORDS SUMMARY | 2024-12-18 17:41 | XMS_ITS | Continuity of Care Document ---
Author Organization [facility] Address [address] [place] [address] Phone Care Team Providers Care Guest Experience Specialist Name Role Phone Yohana Ray PT Unavailable Unavailable Procedures Procedure Date PT Evaluation Moderate Complexity Therapeutic Activities Neuromuscular Re-Ed Manual Therapy Advance Directives Directive Yes / No Effective Date File Name No Information Encounters Encounter Description Practice Location Reason(s) For Visit Diagnoses Date Provider Providers Copied on Encounter [facility], [address], [place], [place], [id number], tel:[phone] Diogenes No Information Flor Muller. . [facility], [facility] [address], [place], [place], [id number], tel:[phone] Diogenes No Information Flor Muller. . Family History Family Member Type Diagnosis Age At Onset No Information Payers Payer name Insurance type Covered republican ID Authoriza tion(s) [employer] Medicare Replacement 16 [id number] Medicaid OON Write Off CI 00 Social [...]
--- NOTE | 2024-12-18 17:49 | PC.NURSE ---
PT IS SITTING UP ON STRETCHER AWAITING ERP DECISION AT THIS TIME. PT AND FAMILY HAVE BEEN UPDATED. DENIES ANY COMPLAINTS OR NEEDS AT THIS TIME. WILL CONTINUE TO MONITOR.
[2024-12-18 18:00] VITALS: BP 148/70; PULSE 72; RESP 18; O2SAT 97
== END 2024-12-18 18:00 | disposition home or self-care (01) ==
PROVIDERS: Emergency Provider Emergency Medicine; PCP Family Medicine
DX: J44.9 Chronic obstructive pulmonary disease, unspecified (principal); R68.84 Jaw pain; E11.9 Type 2 diabetes mellitus without complications; F17.210 Nicotine dependence, cigarettes, uncomplicated
CPT/HCPCS: 71046; 99283

== ENCOUNTER 2024-12-28 11:43 | Outpatient (CLI) | payer OTHER, SELFPAY ==
--- NOTE | ~2024-12-28 | XR_ITS ---
XR abdomen obstructive series Ordering provider: Reagan Fonseca MD History: . Abdominal Pain x2 months, NKI . Comparison: None. FINDINGS: BOWEL: Nonobstructive bowel gas pattern. ORGANOMEGALY: Hepatomegaly. SIGNIFICANT PATHOLOGIC CALCIFICATIONS: None. OTHER: No free air is seen under the diaphragm. Pubic symphysitis. Degenerative the spine. IMPRESSION: NO ACUTE ABDOMINAL FINDINGS. Hepatomegaly. Reviewed, dictated and finalized at location A.
--- OUTSIDE RECORDS SUMMARY | 2024-12-28 11:57 | XMS_ITS | Clinical Summary ---
Author Organization [facility] Address [address] [place] [address] Care Team Providers Care Nutritionists Name Role Phone Unavailable Primary Care Provider [...] 2017 COVID-19 Vaccine (2023-2 5 season) 2024 Meningococcal B Vaccine Aged Out No [...]
--- OUTSIDE RECORDS SUMMARY | 2024-12-28 11:57 | XMS_ITS ---
Author Organization Unknown Address [address] [place] [phone] Phone Care Team Providers Care Spool Sander Name Role Phone JOHAN SULLIVAN Attending Unavailable Immunization Immunization Date Status Additional Notes Code Code System Tdap 03/26/2021 Completed 115 CVX Results US GALLBLADDER - Completed: 12/25/2024 12:00 LOINC: \TM00\12PI\DRAo\BM09\ \MRHo\ [address] [address] ---------NAME--------- NUMBER SEX AGE ADMIT DISC. XRAY# F/C TYPE CHUYITA TONY [id number] F 59 12/25/24 12/25/24 [id number] MBJ O/P DATE OF : 1965 M/R# [id number] PH#: [phone] RM \MRHx\ LOCATION: TRANSCRIBED: 12/25/24 13:39 US GALLBLADDER [id number] COMPLETED:12/25/24 12:00 APC [id number] {REASON-US ABD: ABDOMINAL PAIN PHYSICIAN: JOHAN R A D I O L O G Y R E P O R T INDICATION: ABDOMINAL PAIN TECHNIQUE: Multiple real-time sonographic images were obtained of the right upper quadrant. COMPARISON: None FINDINGS: The liver demonstrates heterogenous echotexture without focal mass lesions. The liver measures 18cm. There is no intrahepatic or extrahepatic ductal dilatation. The common duct measures 10 mm. The gallbladder is without evidence of stone or sludge. The gallbladder wall measures 0.2 mm and is within normal limits. The right kidney measures 11 cm. The right kidney is normal in contour, size, and shape. The echogenicity is normal. There is no hydronephrosis. The pancreas is not well visualized due to overlying bowel gas. IMPRESSION: No sonographic evidence of gallstones or acute cholecystitis. Hepatic steatosis. F INNOVATION OFFICER \ITLo\ \UNDo\ \UNDx\ \ITLx\ Reviewed and Electronically Signed by: Ivan Acosta MD Signed Date: 12/25/24 13:39 Social History Type Status Start Date End Date Code Code Syst em Sex Female Hospital Discharge Instructions Should you have any questions prior to discharge, please contact a member of your healthcare team. If you have left the hospital and have any questions, please contact your primary care physician. Reason For Referral No Data Found Plan of Treatment US Gallbladder ([id number]) 12/25/2024 Encounters Encounter Diagnosis Start Date Code Code Sys tem Fatty (change of) liver, not elsewhere classified 04/2025 SNOMED-CT Personal Care Team Section Performer Name Performer Role Active Date Inactive LAURIE Hidalgo PCP - Primary care physician Imaging Narrative Notes [facility] 12/25/2024 13:[address] [address] ---------NAME--------- NUMBER SEX AGE ADMIT DISC. XRAY# F/C TYPE CHUYITA TONY [id number] F 59 12/25/24 12/25/24 [id number] MBJ O/P DATE OF : 1965 M/R# [id number] #: [id number] LOCATION: TRANSCRIBED: 12/25/24 13:39 US GALLBLADDER [id number] COMPLETED:12/25/24 12:00 APC [id number] {REASON-US ABD: ABDOMINAL PAIN PHYSICIAN: JOHAN RADIOLOGY REPORT INDICATION: ABDOMINAL PAIN TECHNIQUE: Multiple real-time sonographic images were obtained of the right upper quadrant. COMPARISON: None FINDINGS: The liver demonstrates heterogenous echotexture without focal mass lesions. The liver measures 18cm. There is no intrahepatic or extrahepatic ductal dilatation. The common duct measures 10 mm. The gallbladder is without evidence of stone or sludge. The gallbladder wall measures 0.2 mm and is within normal limits. The right kidney measures 11 cm. The right kidney is normal in contour, size, and shape. The echogenicity is normal. There is no hydronephrosis. The pancreas is not well visualized due to overlying bowel gas. IMPRESSION: No sonographic evidence of gallstones or acute cholecystitis. Hepatic steatosis. F INNOVATION OFFICER Reviewed and Electronically Signed by: Ivan Acosta MD Signed Date: 12/25/24 13:39
--- OUTSIDE RECORDS SUMMARY | 2024-12-28 11:57 | XMS_ITS | Encounter Summary ---
Author Organization [facility] Address [address] [place] [id number] Care Team Providers Care Printing Worker Supervisor Name Role Phone Unavailable Primary Care Provider Unavailabl e Encounter Details Date Type Department Care Team (Late st Contact Info) Description 02/24/2019 Abstract [facility] CONVERSION [address] [place] [address] , Generic Conversion, Social History Tobacco Use [...]
--- OUTSIDE RECORDS SUMMARY | 2024-12-28 11:57 | XMS_ITS | Encounter Summary ---
Author Organization [facility] Address [address] [place] [id number] Care Team Providers Care Membership Sales Manager Name Role Phone Unavailable Primary Care Provider Unavailabl e Encounter Details Date Type Department Care Team (Late st Contact Info) Description 12/03/2017 Abstract [facility] CONVERSION [address] [place] [address] , Generic Conversion, Social History Tobacco Use [...]
[2024-12-28 13:20] LABS: Hematocrit 21.9 % (35.0-49.0); Immature Platelet Fraction Pct 8.3 % (1.0-7.0); Mean Corpuscular HGB Conc 30.6 g/dL (32-36); Mean Corpuscular Hemoglobin 31.5 pg (27.0-31.0); Mean Corpuscular Volume 102.8 fL (78.0-102.0); Mean Platelet Volume 13.2 fl (9.2-11.8); Platelet Count Result 47 K/mm3 (150-420); Red Blood Count 2.13 M/mm3 (4.20-5.40); Red Cell Distribution Width 14.4 % (11.6-14.4); White Blood Count 1.8 K/mm3 (4.8-10.8)
[2024-12-28 13:25] LABS: Partial Thromboplastin Time 25.1 Sec (23.9-30.70); Prothrombin Time 10.8 Seconds (9.50-12.1)
[2024-12-28 13:28] LABS: Hemoglobin 6.7 g/dL (12.0-15.0)
[2024-12-28 13:42] LABS: Alanine Aminotransferase 17 U/L (14-59); Albumin Level 3.3 g/dL (3.4-5.0); Alkaline Phosphatase 82 U/L (46-116); Anion Gap 8 mmol/L (4-12); Aspartate Amino Transferase < 10 U/L (15-37); Bilirubin,Total 0.3 mg/dL (0.00-1.00); Blood Urea Nitrogen 6 mg/dL (7-18); CRP 0.8 mg/dL (0.0-0.9); Calcium 8.6 mg/dL (8.5-10.1); Carbon Dioxide 29 mmol/L (21-32); Chloride 105 mmol/L (98-108); Estimated Glomerular Filt Rate > 60; Ferritin 199 ng/mL (8-252); GGT 31 U/L (5-55); Glucose 114 mg/dL (70-99); Iron 76 ug/dL (50-170); Osmolality Calculated 292 mOsm/kg (285-295); Percent Iron Saturation 29 % (12-57); Potassium 3.6 mmol/L (3.5-5.1); Sodium 142 mmol/L (136-145); Total Protein 7.3 g/dL (6.4-8.2)
[2024-12-28 14:00] LABS: Band Neutrophils Percent 2 % (0-6); Basophils Absolute Manual 0.01 K/mm3 (0-0.1); Basophils Percent Manual 1 % (0-1); Eosinophils Absolute Manual 0.03 K/mm3 (0.02-0.50); Eosinophils Percent Manual 2 % (1-6); Lymphocytes Absolute Manual 0.77 K/mm3 (1.1-4.5); Lymphocytes Percent Manual 43 % (18-44); Monocytes Absolute Manual 0.05 K/mm3 (0.1-0.90); Monocytes Percent Manual 3 % (3-9); Neutrophils Absolute Manual 0.91 K/mm3 (1.7-7.2); Neutrophils Percent Manual 49 % (46-73); Platelet Clumps Present; Platelet Estimate Decreased (Adequate); Total Cells Counted 100
[2024-12-28 14:01] LABS: Atypical Lymphocytes Present; Schistocytes None Seen
[2024-12-28 14:23] LABS: Erythrocyte Sedimentation Rate 68 mm/hr (0-20)
[2024-12-30 06:44] LABS: Hepatitis B Surface Antigen NON-REACTIVE (NON-REACTIVE)
[2024-12-30 07:18] LABS: Hepatitis A Antibody IgM NON-REACTIVE (NON-REACTIVE); Hepatitis B Core Antibody NON-REACTIVE (NON-REACTIVE); Hepatitis C Virus Antibody NON-REACTIVE (NON-REACTIVE)
[2024-12-31 14:38] LABS: ANA Cascade Screen NEGATIVE (NEGATIVE)
[2024-12-31 15:53] LABS: Alpha-1-Antitrypsin, QN 189 mg/dL (83-199)
[2025-01-01 22:48] LABS: Actin Antibody (IgG) <20 U (<20)
== END 2024-12-28 11:44 | disposition home or self-care (01) ==
PROVIDERS: PCP Family Medicine; Visit Provider Family Medicine
DX: R10.9 Unspecified abdominal pain (principal); K76.0 Fatty (change of) liver, not elsewhere classified; R16.0 Hepatomegaly, not elsewhere classified
CPT/HCPCS: 36415; 74019; 80053; 80074; 82103; 82728; 82977; 83516; 83540; 83550; 85025; 85055; 85610; 85652; 85730; 86038; 86140; 86225; 86235; 86376

== ENCOUNTER 2025-01-29 22:37 | Emergency (ER) | payer OTHER, SELFPAY ==
[2025-01-29 22:38] VITALS: BP 155/74; PULSE 92; RESP 16; TEMP 36.8; O2SAT 96
--- NOTE | 2025-01-29 22:38 | ED.EXTPRO ---
HPI - Extremity Problem General Chief complaint: Extremity Problem,Nontraumatic Stated complaint: LEFT ARM PAIN Time Seen by Provider: 01/29/25 22:37 Source: patient and family Mode of arrival: ambulatory Limitations: no limitations History of Present Illness HPI Narrative: Patient is a 59-year-old female with a left forearm flexor surface red and tender patch after getting an IV 3 days ago. She has aplastic anemia and was getting blood transfusion. She is having progressively worse left forearm pain. MD Complaint: extremity pain ( Left upper) and extremity swelling ( left upper) Onset (ago): day(s) ( 3) Pain Consistency: constant Location: left and upper extremity Severity scale (1-10): 3 Quality: burning and aching Radiation: none Relieving factors: nothing Exacerbating factors: palpation Associated symptoms: myalgias Context: recent surgery/procedure ( IV blood transfusion) Related Data Home Medications ?Medication ?Instructions ?Recorded ?Confirmed ?Last Taken ?Type metformin 500 mg tablet 500 mg PO DAILY 04/05/22 05/24/24 Unknown History albuterol sulfate 90 mcg/actuation 90 mcg inhalation Q6H PRN SOB 05/24/24 05/24/24 Unknown History aerosol inhaler omeprazole 40 mg capsule,delayed 40 mg PO DAILY 05/24/24 05/24/24 Unknown History release Allergies Allergy/AdvReac Type Severity Reaction Status Date / Time Penicillins Allergy Hives Verified 01/29/25 22:54 codeine AdvReac Nausea Verified 01/29/25 22:54 Review of Systems Review of Systems: All systems reviewed & are unremarkable except as noted in HPI and below Constitutional: Constitutional: Reports no additional constitutional complaints Eyes: Eyes: Reports no additional eye complaints ENT: Reports system reviewed and no additional complaints, except as documented Cardiovascular: Cardiovascular: Reports no additional cardiovascular complaints Respiratory: Respiratory: Reports no additional respiratory complaints Gastrointestinal: Gastrointestinal: Reports no additional gastrointestinal complaints Genitourinary: Genitourinary: Reports no additional female genitourinary complaints Musculoskeletal: Musculoskeletal: Reports no additional musculoskeletal complaints Integumentary/Breasts: Skin/Breast: Reports system reviewed and no additional complaints, except as docu Neurologic: Reports system reviewed and no additional complaints, except as documented Psychiatric: Psychiatric: Reports no additional psychiatric complaints Endocrine: Endocrine: Reports no additional endocrine complaints Hematologic/Lymphatic: Hematologic/Lymphatic: Reports no additional hematologic/lymphatic complaints Allergic/Immunologic: Allergic/Immunologic: Reports no additional allergic/immunologic complaints PMFSH Past Medical History Medical History Abdominal pain Bronchitis COPD (chronic obstructive pulmonary disease) Type 2 diabetes mellitus Social History Social History Smoking packs per day: 1.5 Smoking cigarettes per day: 30.0 Years smoked: 35 Smoking pack-years: 52.50 Smoking status: Current every day smoker Tobacco type: cigarettes Second hand tobacco smoke exposure: Yes Alcohol intake: never Substance use: never Substance use type: does not use Do You Feel Safe in your Home?: Yes Lack of Transportation: No Lack of Food: Never True Current Housing: I Have Housing Concerned About Future Housing: No Difficulty Paying Gas/Electric Bills: No Difficulty Paying for Meds: No Currently Unemployed: No Education: Grade School Difficulty w/ Childcare or Family Care: No Living arrangements: with family Spiritual care concerns: No Exam Const: General: healthy appearing Nutritional Appearance: well nourished Orientation/consciousness: patient oriented x3 Limitations: no limitations HENMT: Head: normal to inspection Ears: external ears normal Face/Nose/Sinus: Normal external nose present Eyes: Conjunctivae: conjunctivae normal Pupils: Equal, round and reactive pupils present EOM: EOMs intact bilaterally Neck: Neck: normal visual inspection Chest: Chest palpation & inspection: normal inspection of the chest Resp: Effort & Inspection: normal respiratory effort and not labored Auscultation: clear to auscultation bilaterally and no crackles Cardio: Rate: regular rate Rhythm: regular rhythm Heart sounds: no murmurs GI: Inspection: non-distended GI Palp: Yes Soft to palpation and No Tenderness to palpation present (GI) Auscultation: normal bowel sounds : General: Yes bladder normal to palpation Back/Spine/Pelvis: Back: no CVA tenderness Skin: General skin exam: normal color Rashes: rash noted Wounds: no wounds Other: left upper extremity flexor surface mid arm shaft shows erythema in a patch shape oval like with nidus of infection at the center with IV site; no pus or abscess Neuro: General: patient oriented x3 Cranial nerves: Yes Nystagmus not present Speech: normal speech Gait exam (Neuro): Normal gait present Extrem: General: abnormal to inspection Other: see skin exam Psych: Mental Status: mental status grossly normal Affect: normal affect Attitude: cooperative Course Vital Signs Vital signs: Vital Signs Temperature 36.8 C 01/29/25 22:38 Pulse Rate 92 01/29/25 22:38 Respiratory Rate 16 01/29/25 22:38 Blood Pressure 155/74 H 01/29/25 22:38 Pulse Oximetry 96 01/29/25 22:38 Oxygen Delivery Room Air 01/29/25 22:38 Temperature 36.8 C 01/29/25 22:38 Pulse Rate 92 01/29/25 22:38 Respiratory Rate 16 01/29/25 22:38 Blood Pressure 155/74 H 01/29/25 22:38 Pulse Oximetry 96 01/29/25 22:38 Oxygen Delivery Room Air 01/29/25 22:38 MDM - Extremity (Nontraumatic) MDM Narrative Medical decision making narrative: patient is a 59-year-old female with a left forearm midshaft cellulitis light chains at site of IV therapy 3 days ago. No IV at this time. She is already on a few antibiotics with unknown names for the aplastic anemia. We will do labs and make further plans based on results. Lab Data Attestation: I reviewed the patient's lab results. 01/29/25 23:14 01/29/25 23:14 Labs: Lab Results 01/29/25 Range/Units 23:14 WBC 1.5 L* (4.8-10.8) K/mm3 RBC 2.45 L (4.20-5.40) M/mm3 Hgb 7.5 L (12.0-15.0) g/dL Hct 24.0 L (35.0-49.0) % MCV 98.0 (78.0-102.0) fL MCH 30.6 (27.0-31.0) pg MCHC 31.3 L (32-36) g/dL RDW 18.5 H (11.6-14.4) % Plt Count 28 L (150-420) K/mm3 MPV 11.9 H (9.2-11.8) fl Immature Gran % (Auto) Not Reportable Neut % (Auto) Not Reportable Lymph % (Auto) Not Reportable [place] % (Auto) Not Reportable Eos % (Auto) Not Reportable Baso % (Auto) Not Reportable Lymph # (Auto) Not Reportable [place] # (Auto) Not Reportable Eos # (Auto) Not Reportable Baso # (Auto) Not Reportable Abs Immat Gran (auto) Not Reportable Absolute Neuts (auto) Not Reportable Absolute Nucleated RBC Not Reportable Neutrophils % (Manual) 29 L (46-73) % Band Neutrophils % 0 (0-6) % Lymphocytes % (Manual) 57 H (18-44) % Monocytes % (Manual) 5 (3-9) % Eosinophils % (Manual) 3 (1-6) % Basophils % (Manual) 1 (0-1) % Promyelocytes % (Man) 5 % Nucleated RBC % Not Reportable Abs Neuts (Manual) 0.43 L (1.7-7.2) K/mm3 Abs Lymphs (Manual) 0.85 L (1.1-4.5) K/mm3 Abs Monocytes (Manual) 0.07 L (0.1-0.90) K/mm3 Absolute Eos (Manual) 0.04 (0.02-0.50) K/mm3 Abs Basophils (Manual) 0.01 (0-0.1) K/mm3 Other Cell Type See comment Platelet Estimate Decreased (Adequate) % Immature Plt Fraction 9.0 H (1.0-7.0) % Anisocytosis 1+ Schistocytes None seen Sodium 137 (137-145) mmol/L Potassium 4.1 (3.4-5.0) mmol/L Chloride 104 (98-107) mmol/L Carbon Dioxide 30 (22-30) mmol/L Anion Gap 3 L (4-12) mmol/L BUN 10 (7-17) mg/dL Creatinine 0.91 (0.7-1.0) mg/dL Estim Creat Clear Calc 70 ml/min Estimated GFR > 60 (59 - ) Glucose 133 H (65-110) mg/dL Calculated Osmolality 285 (285-295) mOsm/kg Lactic Acid 0.8 (0.4-2.0) mmol/L Calcium 8.5 (8.4-10.2) mg/dL Total Bilirubin 0.3 (0.2-1.3) mg/dL AST 23 (14-36) U/L ALT 14 (6-35) U/L Alkaline Phosphatase 68 (38-126) U/L Total Protein 6.8 (6.3-8.2) g/dL Albumin 3.7 (3.5-5.1) g/dL Discharge Plan Discharge Clinical Impression: Aplastic anemia Cellulitis Qualifiers: Site of cellulitis: extremity Site of cellulitis of extremity: upper extremity Laterality: left Qualified Code(s): L03.114 - Cellulitis of left upper limb Patient Disposition: Home Condition: Stable Instructions: Antibiotic Form, Cellulitis (ED) Additional Instructions: please call your clerk manager and let them know that your platelets are lower than prior at 28. See the primary doctor soon as possible for follow-up on the arm. Patient Language: Norwegian Prescriptions: New doxycycline hyclate 100 mg capsule 100 mg PO BID 10 Days Qty: 20 0RF No Action fluticasone propion-salmeterol [Advair HFA] 115-21 mcg/actuation HFA aerosol inhaler 2 puff inhalation BID Qty: 12 0RF clindamycin HCl [Cleocin HCl] 300 mg capsule 300 mg PO TID 10 Days Qty: 30 0RF metformin 500 mg tablet 500 mg PO DAILY omeprazole 40 mg capsule,delayed release(DR/EC) 40 mg PO DAILY albuterol sulfate 90 mcg/actuation HFA aerosol inhaler 90 mcg INHALATION Q6H PRN (Reason: SOB) ipratropium-albuterol 0.5 mg-3 mg(2.5 mg base)/3 mL Solution For Nebulization 3 ml inhalation Q6HRT Qty: 30 0RF azithromycin [Zithromax] 250 mg Tablet 500 mg PO DAILY Qty: 2 0RF amlodipine [Norvasc] 5 mg Tablet 5 mg PO DAILY Qty: 30 2RF fexofenadine [Allergy Relief (fexofenadine)] 60 mg tablet 60 mg PO Q12H Qty: 60 2RF montelukast [Singulair] 10 mg Tablet 10 mg PO HS Qty: 30 2RF (DME) nebulizers [MC [facility]Mouthpiece[facility] Instructions .Route Qty: 1 0RF Rx Instructions: As directed (DME) nebulizer accessories Kit See Rx Instructions .Route Qty: 1 0RF Rx Instructions: As directed methylprednisolone 4 mg tablets,dose pack See Rx Instructions .ROUTE .COMPLEX Qty: 21 0RF Rx Instructions: orally per package directions alprazolam [Xanax] 0.5 mg tablet 0.5 mg PO TID Qty: 20 0RF Follow-up/Referrals: Reagan Fonseca MD [Primary Care Provider] - Time of Disposition: 01:03
--- OUTSIDE RECORDS SUMMARY | 2025-01-29 22:39 | XMS_ITS ---
Author Organization Unknown Address [address] [place] [phone] Phone Care Team Providers Care Glass Breaker Name Role Phone JOHAN SULLIVAN Attending Unavailable Immunization Immunization Date Status Additional Notes Code Code System Tdap 03/26/2021 Completed 115 CVX Results US GALLBLADDER - Completed: 12/25/2024 12:00 LOINC: \TM00\12PI\DRAo\BM09\ \MRHo\ [address] [address] ---------NAME--------- NUMBER SEX AGE ADMIT DISC. XRAY# F/C TYPE CHUYITA TONY [id number] F 59 12/25/24 12/25/24 [id number] MBJ O/P DATE OF : 1965 M/R# [id number] PH#: [phone] RM \MRHx\ LOCATION: TRANSCRIBED: 12/25/24 13:39 US GALLBLADDER [id number] COMPLETED:12/25/24 12:00 APC [id number] {REASON-US ABD: ABDOMINAL PAIN PHYSICIAN: JOHAN R [...] of gallstones or acute cholecystitis. Hepatic steatosis. ANALYST \ITLo\ \UNDo\ \UNDx\ \ITLx\ Reviewed and Electronically [...] Data Found Plan of Treatment US Gallbladder ([id number]) 12/25/2024 Encounters Encounter Diagnosis Start Date Code Code Sys tem Fatty (change of) liver, not elsewhere classified 04/2025 SNOMED-CT Personal Care Team Section Performer Name Performer Role Active Date Inactive LAURIE Hidalgo PCP - Primary care physician Imaging Narrative Notes [facility] 12/25/2024 13:[address] [address] ---------NAME--------- NUMBER SEX AGE ADMIT DISC. XRAY# F/C TYPE CHUYITA TONY [id number] F 59 12/25/24 12/25/24 [id number] MBJ O/P DATE OF : 1965 M/R# [id number] #: [id number] LOCATION: TRANSCRIBED: 12/25/24 13:39 US GALLBLADDER [id number] COMPLETED:12/25/24 12:00 APC [id number] {REASON-US ABD: ABDOMINAL PAIN PHYSICIAN: JOHAN RADIOLOGY [...] of gallstones or acute cholecystitis. Hepatic steatosis. ANALYST Reviewed and Electronically Signed by: Ivan Acosta MD Signed Date: 12/25/24 13:39
--- OUTSIDE RECORDS SUMMARY | 2025-01-29 22:39 | XMS_ITS | Clinical Summary ---
Author Organization [facility] Address [address] [place] [address] Care Team Providers Care Customer Complaint Clerk Name Role Phone Reagan Fonseca MD Primary Care Provider [phone] Allergies Active Allergy Reactions Criticality Noted Date Comments Amoxicillin Nausea and Vomiting 01/26/2025 Penicillins Nausea and Vomiting 01/26/2025 Medications traZODone (DESYREL) 100 MG tablet Take 1 tablet (100 mg total) by mouth nightly at bedtime. Active ALPRAZolam (XANAX) 1 MG tablet Take 1 tablet (1 mg total) by mouth nightly as needed for Sleep. Active acyclovir (ZOVIRAX) 400 MG tablet Take 1 tablet (400 mg total) by mouth 2 (two) times daily. 5 Active albuterol sulfate HFA 108 (90 Base) MCG/ACT inhaler Inhale 2 puffs into the lungs every 6 (six) hours as needed. 5 Active albuterol (PROVENTIL) (2.5 MG/3ML) 0.083% nebulizer solution Take 3 mLs (2.5 mg total) by nebulization every 6 (six) hours as needed. 5 Active fluconazole (DIFLUCAN) 150 MG tablet Take 1 tablet (150 mg total) by mouth daily. 5 Active ADVAIR HFA 115-21 MCG/ACT inhaler Inhale 2 puffs into the lungs 2 (two) times daily. 5 Active levoFLOXacin (LEVAQUIN) 500 MG tablet Take 1 tablet (500 mg total) by mouth daily. 5 Active oxyCODONE immediate release (ROXICODONE) 5 MG immediate release tablet Take 1 tablet (5 mg total) by mouth every 6 (six) hours as needed. 5 Active omeprazole (PRILOSEC) 40 MG capsule Take 1 capsule (40 mg total) by mouth daily. 5 Active pantoprazole EC (PROTONIX) 40 MG tablet Take 1 tablet (40 mg total) by mouth daily. 5 Active SENEXON-S 8.6-50 MG tablet Take 2 tablets by mouth 2 (two) times daily. 5 Active Encounters Date Type Department Care Team Description 01/26/2025 2:50 PM CDT - 01/26/2025 8:40 PM CDT Emergency [facility] [address] [place] [address] Bharat Young, Medical Problem Discharge Disposition: Home or Self Care (Routine Discharge) 01/26/2025 Travel from Last 3 Months Social History Tobacco Use Types Packs/Day Years Used Date Smoking Tobacco: Former Cigarettes Smokeless Tobacco: Never Tobacco Cessation:Counseling Given: Not Answered Alcohol Use Standard Drinks/Week Comments Not Currently 0 (1 standard drink = 0.6 oz pur e alcohol) Comments No Sex and Gender Information Value Date Recorded Sex Assigned at Female 01/26/2025 3:17 PM CDT Legal Sex Female 4:11 PM CDT Gender Identity Not on file Sexual Orientation Not on file Last Filed Vital Signs Vital Sign Reading Time Taken Comments Blood Pressure 183/56 01/26/2025 8:30 PM CDT Pulse 93 01/26/2025 6:30 PM CDT Temperature 36.4 C (97.6 F) 01/26/2025 6:23 PM CDT Respiratory Rate 18 01/26/2025 6:30 PM CDT Oxygen Saturation 99% 01/26/2025 8:30 PM CDT Inhaled Oxygen Concentration - - Weight 94.1 kg (207 lb 6.4 oz) 01/26/2025 2:54 P M CDT Height 172.7 cm (5' 8 ) 01/26/2025 2:54 PM CDT Body Mass Index 31.54 01/26/2025 2:54 PM CDT Plan of Treatment Health Maintenance Due Date Last Done Comments Cervical Cancer Screening Pa p Smear (Age 30 to 64) Every 3 Years 1967 Colorectal Cancer Screening Colonoscopy (10 Years) 1967 Annual Physical 1970 Hepatitis C 1985 Hepatitis B Vaccines (1 of 3 - 19+ 3-dose series) 1986 Cervical Cancer Screening Kevin llamas with HPV Testing (Age 30 to 64) Every 5 Years 1997 Cervical Cancer Screening with HPV 1997 Mammogram Screening 2007 Pneumococcal Vaccine: 50+ Ye ars (1 of 1 - PCV) 2017 Zoster Vaccines (1 of 2) 2017 COVID-19 Vaccine (1 - 2023-2 5 season) 2024 DTaP, Tdap and Td Vaccines ( 2 - Td or Tdap) 03/26/2031 03/26/2021 Meningococcal B Vaccine Aged Out No l onger eligible based on patient's age to complete this topic Meningococcal Vaccine Aged Out No gina julio c eligible based on patient's age to complete this topic RSV Immunizations Under 20 Months Aged Out No longer eligible based on patient's age to complete this topic Procedures Procedure Name Priority Date/Time Associated Diagnosis Comments TRANSFUSE RED BLOOD CELLS STAT 01/26/2025 6:08 PM CDT TYPE & SCREEN STAT 01/26/2025 3:25 PM CDT BASIC METABOLIC PANEL STAT 01/26/2025 3:25 PM CDT PROTHROMBIN TIME, VENOUS STAT 01/26/2025 3:25 PM CDT CBC W/DIFF AUTOMATED STAT 01/26/2025 3:25 PM CDT from Last 3 Months Results * TRANSFUSE RED BLOOD CELLS (01/26/2025 8:31 PM CDT) us Bharat Young DO NURSING TREATMENT ORD ERABLES - BLOOD ADMIN Final Result * TYPE & SCREEN (01/26/2025 3:25 PM CDT) UNITS ORDERED 1 01/26/2025 4:15 PM CDT [facility] ABO/RH A POSITIVE 01/26/2025 4:15 PM CDT [facility] ANTIBODY SCREEN NEGATIVE 4:15 PM CDT [facility] SAMPLE EXPIRATION 01/29/2025,2359 01/26/2025 4:15 PM CDT [facility] BLOOD UNIT NUMBER [id number] 01/26/2025 5:50 PM CDT [facility] PRODUCT: PC LEUKOPOOR IRRAD 01/26/2025 5:50 PM CDT [facility] UNIT DIVISION 00 01/26/2025 5:50 PM CDT [facility] BLOOD UNIT STATUS TRANSFUSED,FINAL 01/28/2025 5:03 AM CDT [facility] ISSUE DATE/TIME [id number] 025 5:03 AM CDT [facility] PRODUCT CODE [id number] 01/28/2025 5:03 AM CDT [facility] ABO/RH Unit A POS 01/28/2025 5:03 AM CDT [facility] ABO/RH UNIT ISBT CODE 6200 01/28/2025 5:03 AM CDT [facility] BLOOD UNIT EXPIRATION DATE [id number] 01/28/2025 5:03 AM CDT [facility] TRANSFUSION STATUS OK TO TRANSFUSE 01/26/2025 5:50 PM CDT [facility] CROSSMATCH COMPATIBLE 01/26/2025 5:50 PM CDT [facility] 01/26/2025 3:25 PM CDT us Bharat Young DO BLOOD BANK TEST ORDER JOCELYN Final Result [facility] [address] [place] [address], * PROTIME/INR, VENOUS (01/26/2025 3:25 PM CDT) PROTIME 11.9 9.4 - 12.5 SEC 01/26/2025 3:40 PM CDT [facility] INR 1.0 0.8 - 1.0 01/26/2025 3:40 PM CDT [facility] 01/26/2025 3:25 PM CDT Bharat Sinha Hector DO LABORATORY Final Result [facility] [address] [place] [address], * (ABNORMAL) BASIC METABOLIC PANEL (01/26/2025 3:25 PM CDT) SODIUM S/P/B 140 136 - 145 MMOL/L 01/26/2025 3:54 PM CDT [facility] POTASSIUM S/P/B 4.0 3.5 - 5.1 MMOL/L 01/26/2025 3:54 PM CDT [facility] CHLORIDE S/P/B 105 98 - 107 MMOL/L 01/26/2025 3:54 PM CDT [facility] CO2 31.3 21.0 - 32.0 MMOL/L 01/26/2025 3:54 PM CDT [facility] GLUCOSE 99 70 - 99 MG/DL 01/26/2025 3:54 PM CDT [facility] Comment: FASTING GLUCOSE 100 TO 125 MG/DL IS CONSISTENT WITH IMPAIRED FASTING GLUCOSE. FASTING GLUCOSE >125 MG/DL IS CONSISTENT WITH DIABETES. RANDOM GLUCOSE >200 MG/DL WITH HYPERGLYCEMIC SYMPTOMS IS CONSISTENT WITH DIABETES. PER ADA GUIDELINES BUN 6 6 - 24 MG/DL 01/26/2025 3:54 PM CDT [facility] CREATININE S/P/B 0.81 0.55 - 1.02 MG/DL 01/26/2025 3:54 PM CDT [facility] CALCIUM S/P/B 8.8 8.4 - 10.5 MG/DL 01/26/2025 3:54 PM CDT [facility] ANION GAP 3.7(L) 5.0 - 15.0 MMOL/L 01/26/2025 3:54 PM CDT [facility] OSMOLALITY (CALC) 288 MOSM/KG 025 3:54 PM CDT [facility] Comment:REFERENCE RANGE NOT ESTABLISHED GFR ESTIMATE 85(L) >89 ML/MIN/1. 73 M2 01/26/2025 3:54 PM CDT [facility] GFR NOTES GFR REFERENCE S: 01/26/2025 3:54 PM CDT [facility] Comment: THE ESTIMATED GFR IS CALCULATED USING THE 2020 CKD-EPI EQUATION. THE FOLLOWING CATEGORIES FOR GRADING RENAL FUNCTION ARE RECOMMENDED BY THE INTERNATIONAL SOCIETY OF NEPHROLOGY (KDIGO 2012 CLINICAL PRACTICE GUIDELINE). G1,NORMAL OR HIGH: >89 ml/min/1.73 m2 G2,MILDLY DECREASED: 60-89 ml/min/1.73 m2 G3A,MILDLY TO MODERATELY DECREASED: 45-59 ml/min/1.73 m2 G3B,MODERATELY TO SEVERELY DECREASED: 30-44 ml/min/1.73 m2 G4,SEVERELY DECREASED: 15-29 ml/min/1.73 m2 G5,KIDNEY FAILURE: <15 ml/min/1.73 m2 01/26/2025 3:25 PM CDT Bharat Young DO LABORATORY Final Result [facility] [address] [place] [address], * (ABNORMAL) CBC W/DIFF AUTOMATED (01/26/2025 3:25 PM CDT) WBC 1.66(L) 4.00 - 10.80 x10'3/uL 01/26/2025 3:44 PM CDT [facility] RBC 2.08(L) 4.10 - 5.40 x10'6/uL 01/26/2025 3:44 PM CDT [facility] HGB 6.6(LL) 12.0 - 16.0 G/DL 01/26/2025 3:44 PM CDT [facility] Comment: CRITICAL VALUE CALLED TO MARYAM ORDONEZ RN ER AT 1544 BY READ BACK AND VERIFIED HCT 21.1(L) 36.0 - 47.0 % 01/26/2025 3:44 PM CDT [facility] MCV 101.4(H) 78.0 - 100.0 FL 01/26/2025 3:44 PM CDT [facility] MCH 31.7(H) 27.0 - 31.0 PG 01/26/2025 3:44 PM CDT [facility] MCHC 31.3(L) 33.0 - 36.0 G/DL 01/26/2025 3:44 PM CDT [facility] RDW 17.0(H) 11.5 - 14.5 % 01/26/2025 3:44 PM CDT [facility] PLT 29(LL) 150 - 350 x10'3/uL 01/26/2025 3:44 PM CDT [facility] Comment: CRITICAL VALUE CALLED TO MARYAM ORDONEZ RN ERAT 1544 BY READ BACK AND VERIFIED MPV 13.4(H) 7.4 - 10.4 FL 01/26/2025 3:44 PM CDT [facility] CBC COMMENT NORMAL REFERENCE RANGE NOT ESTABLISHED FOR THE PROPORTIONAL LEUKOCYTE DIFFERENTIAL. 01/26/2025 3:44 PM CDT [facility] NEUTROPHILS % 30.8 % 01/26/2025 4:00 PM CDT [facility] LYMPHOCYTES % 57.8 % 01/26/2025 4:00 PM CDT [facility] MONOCYTES % 3.6 % 01/26/2025 4:00 PM CDT [facility] EOSINOPHILS % 4.8 % 01/26/2025 4:00 PM CDT [facility] BASOPHILS % 0.6 % 01/26/2025 4:00 PM CDT [facility] IMMATURE GRANS % 2.4 % 01/27/20 4:00 PM CDT [facility] NRBC % 0.0 % 01/26/2025 4:00 PM CDT [facility] ABS. NEUTROPHILS 0.51(L) 1.60 - 8.30 x10'3/uL 01/26/2025 4:00 PM CDT [facility] ABS. LYMPHOCYTES 0.96 0.80 - 4.70 x10'3/uL 01/26/2025 4:00 PM CDT [facility] ABS. MONOCYTES 0.06 0.00 - 1.50 x10'3/uL 01/26/2025 4:00 PM CDT [facility] ABS. EOSINOPHILS 0.08 0.00 - 0.40 x10'3/uL 01/26/2025 4:00 PM CDT [facility] ABS. BASOPHILS 0.01 0.00 - 0.20 x10'3/uL 01/26/2025 4:00 PM CDT [facility] ABS. IMMATURE GRANULOCYTES 0.04(H) 0.00 - 0.03 x10'3/uL 01/26/2025 4:00 PM CDT [facility] ABS. NUCLEATED RBC'S 0.00 0.00 - 0.01 x10'3/uL 01/26/2025 4:00 PM CDT [facility] PLT MORPH. DECREASED 01/26/2025 4:00 PM CDT [facility] RBC MORPHOLOGY 1+ 01/26/2025 4:00 PM CDT [facility] Comment: HYPOCHROMASIA 2+ ANISOCYTOSIS 2+ POIKILOCYTOSIS 1+ ELLIPTOCYTES 1+ MICROCYTES 01/26/2025 3:25 PM CDT Bharat Young DO LABORATORY Final Result [facility] [address] [place] [address], from Last 3 Months Insurance [employer] Care Teams Customer Complaint Clerk Relationship Specialty Start Date End Date Reagan Fonseca MD [address] [place] [address] PCP - General FAMILY PRACTICE 01/26/25
--- OUTSIDE RECORDS SUMMARY | 2025-01-29 22:39 | XMS_ITS ---
Author Organization Unknown Address [address] [place] [phone] Phone Care Team Providers Care Client Business Manager Name Role Phone JOHAN SULLIVAN Attending Unavailable Immunization Immunization Date Status Additional Notes Code Code System Tdap 03/26/2021 Completed 115 CVX Results CBC W/ DIFF - Collect Date/T sarah: 01/08/2025 13:23 [facility] ID: [id number] [address] [place] [address], [phone] LOINC: 47010-8 Test Value Unit Reference Range Code Code System Flag WBC 2.0 10^3uL L=4.8 H=10.8 L RBC 2.48 10^6uL L=4.20 H=5.40 L HEMOGLOBIN 7.6 g/dL L=12.0 H=16.0 718-7 LOINC LL CALLED TO: LEEANN Nuñez AT: 1332 BY: SD HEMATOCRIT 25.1 VOL% L=37.0 H=47.0 4544-3 LOINC L MCV 101.2 fL L=81.0 H=99.0 H MCH 30.6 pg L=27.0 H=32.0 MCHC 30.3 g/dL L=32.0 H=36.0 L PLATELETS 43 10^3uL L=100 H=400 14444-0 LOINC L RDW 16.1 % L=11.7 H=15.5 H %GRAN L=40.0 H=70.0 49811-7 LOINC %LYMPH L=20.0 H=45.0 736-9 LOINC %MONO L=2.0 H=10.0 19965-1 LOINC %EOS L=0.0 H=6.0 713-8 LOINC %BASO L=0.0 H=3.0 706-2 LOINC #NEUT L=1.9 H=7.6 99164-9 LOINC #LYMPH L=0.9 H=4.9 50858-3 LOINC #MONO L=0.1 H=0.9 82162-0 LOINC #EOS L=0.0 H=0.6 712-0 LOINC #BASO L=0.00 H=0.10 17533-6 LOINC #IM GRANS L=0.0 H=7.0 10624-5 LOINC %IM GRANS L=0.0 H=5.0 86254-8 LOINC %NRB L=0.0 H=0.2 88507-7 LOINC #NRB L=0.000 H=0.012 69661-2 LOINC MANUAL DIFF SEE BELOW A SEG 34 % L=40 H=70 L BANDS 0 % L=0 H=6 LYMPH 62 % L=20 H=45 H MONO 1.0 % L=2.0 H=10.0 L EOS 3 % L=0 H=6 713-8 LOINC BASO 0 % L=0 H=3 IM GRANS 0 % L=0 H=5 METAS 0 % L=0 H=0 MYELOS 0 % L=0 H=0 PROMYELOS 0 % L=0 H=0 BLASTS 0 % L=0 H=0 70496-4 LOINC PANDA LYMPHS 0.00 % L=0.00 H=5.00 SMUDGE CELLS 0 % L=0 H=0 NRBC 0.0 % L=0.0 H=0.0 PLTS DECREASED NEUT # 0.7 10^3uL L=1.9 H=7.6 LL LYMPH # 1.2 10^3uL L=0.9 H=4.9 MONO # 0.0 10^3uL L=0.1 H=0.9 L EOS # 0.1 10^3uL L=0.0 H=0.6 712-0 LOINC BASO # 0.0 10^3uL L=0.0 H=0.1 82558-7 LOINC RBC MORPH NOT INDICATED COMPREHENSIVE METABOLIC PANE L - Collect Date/Time: 01/08/2025 13:23 [facility] ID: [id number] [address] [place], [place], [phone] LOINC: 55355-6 Test Value Unit Reference Range Code Code System Flag FASTING NO BUN 12 mg/dL L=7 H=20 3094-0 LOINC CREATININE 0.90 mg/dL L=0.52 H=1.04 2160-0 LOINC GLUCOSE 130 mg/dL L=74 H=106 2345-7 LOINC H SODIUM 138 mmol/L L=132 H=144 2951-2 LOINC POTASSIUM 4.1 mmol/L L=3.5 H=5.1 2823-3 LOINC CHLORIDE 103 mmol/L L=98 H=107 2075-0 LOINC CO2 29.0 mmol/L L=22.0 H=30.0 2028-9 LOINC ANION GAP 10 L=10 H=20 98837-1 LOINC OSMOLALITY 288 mOs/kG L=280 H=296 78515-9 LOINC BUN/CREAT 13.3 3097-3 LOINC CALCIUM 8.9 mg/dL L=8.3 H=10.5 87246-5 LOINC AST 23 U/L L=15 H=46 1920-8 LOINC ALT 15 U/L L=9 H=72 1742-6 LOINC ALKALINE PHOS 61 U/L L=38 H=126 6768-6 LOINC TOTAL BILI 0.3 mg/dL L=0.2 H=1.3 1975-2 LOINC ALBUMIN 3.9 G/dL L=3.5 H=5.0 1751-7 LOINC TOTAL PROTEIN 7.6 g/L L=6.3 H=8.2 2885-2 LOINC A/G RATIO 1.1 06324-3 LOINC AGE 59 71246-5 LOINC eGFR NON-AFR 69 ml/min eGFR AFR AMER 83 ml/min Social History Type Status Start Date End Date Code Code Syst em Sex Female Hospital Discharge Instructions Should you have any questions prior to discharge, please contact a member of your healthcare team. If you have left the hospital and have any questions, please contact your primary care physician. Reason For Referral No Data Found Plan of Treatment US Gallbladder (13796) 12/25/2024 Encounters Encounter Diagnosis Start Date Code Code Sys tem Myelodysplastic syndrome, unspecified 01/08/2025 SNOMED-CT Personal Care Team Section Performer Name Performer Role Active Date Inactive LAURIE Hidalgo PCP - Primary care physician
--- OUTSIDE RECORDS SUMMARY | 2025-01-29 22:39 | XMS_ITS | Encounter Summary ---
Author Organization [facility] Address [address] [place] [address] Care Team Providers Care Technician'S Helper Name Role Phone Reagan Fonseca MD Primary Care Provider Encounter Details Date Type Department Care Team (Late st Contact Info) Description 12/03/2017 Abstract [facility] CONVERSION [address] [place] [address] , Generic Conversion, Social History Tobacco Use [...] Diagnoses Not on filedocumented in this encounter Care Teams Technician'S Helper Relationship Specialty Start Date End Date Reagan Fonseca MD [address] [place] [address] PCP - General FAMILY PRACTICE 01/26/25 documented as of this encounter
--- OUTSIDE RECORDS SUMMARY | 2025-01-29 22:39 | XMS_ITS | Encounter Summary ---
Author Organization [facility] Address [address] [place] [id number] Care Team Providers Care Technical Account Executive Name Role Phone Reagan Fonseca MD Primary Care Provider [phone] Encounter Details Date Type Department Care Team (Late st Contact Info) Description 02/24/2019 Abstract [facility] CONVERSION [address] [place] [address] , Generic Conversion, Social History Tobacco Use [...] on filedocumented in this encounter Care Teams Technical Account Executive Relationship Specialty Start Date End Date Reagan Fonseca MD [address] [place] [address] PCP - General FAMILY PRACTICE 01/26/25 documented as of this encounter
--- OUTSIDE RECORDS SUMMARY | 2025-01-29 22:39 | XMS_ITS ---
Author Organization Unknown Address [address] [place] [phone] Phone Care Team Providers Care Heavy Media Operator Name Role Phone PIPPA BURCIAGAWade Attending Unavailable JOHAN SULLIVAN Primary Unavailable Immunization Immunization Date Status Additional Notes Code Code System Tdap 03/26/2021 Completed 115 CVX Results CBC W/ DIFF - Collect Date/T sarah: 01/23/2025 14:13 [facility] ID: [id number] [address] [place] [address], [phone] LOINC: 71798-1 Test Value Unit Reference Range Code Code System Flag WBC 1.8 10^3uL L=4.8 H=10.8 L RBC 2.27 10^6uL L=4.20 H=5.40 L HEMOGLOBIN 7.2 g/dL L=12.0 H=16.0 718-7 LOINC LL CALLED TO: CHRISTOPH Reyes @HONORIO AT: 1448 01/23/25 BY: SDK HEMATOCRIT 23.3 VOL% L=37.0 H=47.0 4544-3 LOINC L MCV 102.6 fL L=81.0 H=99.0 H MCH 31.7 pg L=27.0 H=32.0 MCHC 30.9 g/dL L=32.0 H=36.0 L PLATELETS 32 10^3uL L=100 H=400 32347-5 LOINC L RDW 17.1 % L=11.7 H=15.5 H %GRAN L=40.0 H=70.0 87145-5 LOINC %LYMPH L=20.0 H=45.0 736-9 LOINC %MONO L=2.0 H=10.0 50477-3 LOINC %EOS L=0.0 H=6.0 713-8 LOINC %BASO L=0.0 H=3.0 706-2 LOINC #NEUT L=1.9 H=7.6 94198-8 LOINC CALLED TO: CHRISTOPH MÁRQUEZ AT: 1448 01/23/25 BY: SDK #LYMPH L=0.9 H=4.9 61814-3 LOINC #MONO L=0.1 H=0.9 11345-2 LOINC #EOS L=0.0 H=0.6 712-0 LOINC #BASO L=0.00 H=0.10 66060-7 LOINC #IM GRANS L=0.0 H=7.0 56113-9 LOINC %IM GRANS L=0.0 H=5.0 12356-8 LOINC %NRB L=0.0 H=0.2 79842-2 LOINC #NRB L=0.000 H=0.012 76223-7 LOINC MANUAL DIFF SEE BELOW A SEG 36 % L=40 H=70 L BANDS 0 % L=0 H=6 LYMPH 44 % L=20 H=45 MONO 3.0 % L=2.0 H=10.0 EOS 4 % L=0 H=6 713-8 LOINC BASO 1 % L=0 H=3 IM GRANS 0 % L=0 H=5 METAS 0 % L=0 H=0 MYELOS 2 % L=0 H=0 H PROMYELOS 0 % L=0 H=0 BLASTS 0 % L=0 H=0 32341-1 LOINC PANDA LYMPHS 10.00 % L=0.00 H=5.00 H SMUDGE CELLS 0 % L=0 H=0 NRBC 0.0 % L=0.0 H=0.0 PLTS DECREASED NEUT # 0.6 10^3uL L=1.9 H=7.6 LL LYMPH # 1.0 10^3uL L=0.9 H=4.9 MONO # 0.1 10^3uL L=0.1 H=0.9 EOS # 0.1 10^3uL L=0.0 H=0.6 712-0 LOINC BASO # 0.0 10^3uL L=0.0 H=0.1 09143-6 LOINC RBC MORPH NOT INDICATED BB ABO AND RH TYPE - Collect Date/Time: 01/23/2025 14:13 [facility] ID: [id number] [place], [place], [phone] LOINC: 63950-5 Test Value Unit Reference Range Code Code System Flag ABO TYPE A 883-9 LOINC RH TYPE POSITIVE COMPREHENSIVE METABOLIC PANE L - Collect Date/Time: 01/23/2025 14:13 [facility] ID: [id number] [place], [place], [id number] LOINC: 11641-8 Test Value Unit Reference Range Code Code System Flag FASTING UNKNOWN BUN 11 mg/dL L=7 H=20 3094-0 LOINC CREATININE 0.80 mg/dL L=0.52 H=1.04 2160-0 LOINC GLUCOSE 89 mg/dL L=74 H=106 2345-7 LOINC SODIUM 141 mmol/L L=132 H=144 2951-2 LOINC POTASSIUM 4.1 mmol/L L=3.5 H=5.1 2823-3 LOINC CHLORIDE 106 mmol/L L=98 H=107 2075-0 LOINC CO2 30.0 mmol/L L=22.0 H=30.0 8-9 LOINC ANION GAP 9 L=10 H=20 16287-3 LOINC L OSMOLALITY 291 mOs/kG L=280 H=296 51436-7 LOINC BUN/CREAT 13.8 3097-3 LOINC CALCIUM 8.7 mg/dL L=8.3 H=10.5 35350-8 LOINC AST 20 U/L L=15 H=46 1920-8 LOINC ALT 12 U/L L=9 H=72 1742-6 LOINC ALKALINE PHOS 71 U/L L=38 H=126 6768-6 LOINC TOTAL BILI 0.2 mg/dL L=0.2 H=1.3 1975-2 LOINC ALBUMIN 3.7 G/dL L=3.5 H=5.0 1751-7 LOINC TOTAL PROTEIN 6.8 g/L L=6.3 H=8.2 2885-2 LOINC A/G RATIO 1.2 21564-1 LOINC AGE 59 45983-5 LOINC eGFR NON-AFR 79 ml/min eGFR AFR AMER 96 ml/min BB RETYPE ABO AND RH TYPE - Collect Date/Time: 01/23/2025 14:13 [facility] ID: [id number] [address] [place], [place], [id number] LOINC: 33775-8 Test Value Unit Reference Range Code Code System Flag ABO TYPE A 883-9 LOINC RH TYPE POSITIVE Social History Type Status Start Date End Date Code Code Syst em Sex Female Hospital Discharge Instructions Should you have any questions prior to discharge, please contact a member of your healthcare team. If you have left the hospital and have any questions, please contact your primary care physician. Reason For Referral No Data Found Plan of Treatment US Gallbladder (33181) 12/25/2024 Encounters Encounter Diagnosis Start Date Code Code Sys tem Myelodysplastic syndrome, unspecified 01/23/2025 SNOMED-CT Personal Care Team Section Performer Name Performer Role Active Date Inactive LAURIE Hidalgo PCP - Primary care physician
--- OUTSIDE RECORDS SUMMARY | 2025-01-29 22:39 | XMS_ITS | Continuity of Care Document ---
Author Organization [facility] Address [address] [place] [address] Phone Care Team Providers Care Stick Feeder Name Role Phone Yohana Ray PT Unavailable Unavailable Procedures Procedure Date PT Evaluation Moderate Complexity Therapeutic Activities Neuromuscular Re-Ed Manual Therapy Advance Directives Directive Yes / No Effective Date File Name No Information Encounters Encounter Description Practice Location Reason(s) For Visit Diagnoses Date Provider Providers Copied on Encounter [facility], [address], [place], [place], [id number], tel:[phone] [place] No Information Flor Muller. . [facility], [facility] [address], [place], [place], [id number], tel:[phone] [place] No Information Flor Muller. . Family History Family Member Type Diagnosis Age At Onset No Information Payers Payer name Insurance type Covered republican ID Authoriza tion(s) [employer] Medicare Replacement 16 [id number] Medicaid OON Write Off CI 00 Social [...]
--- NOTE | 2025-01-29 22:43 | PC.NURSE ---
DR WAYNE AT THE BEDSIDE
--- OUTSIDE RECORDS SUMMARY | 2025-01-29 23:12 | XMS_ITS | Encounter Summary ---
Author Organization [facility] Address [address] [place] [address] Care Team Providers Care Geophysical Prospector Name Role Phone Reagan Fonseca MD Primary Care Provider [phone] Encounter Details Date Type Department Care Team (Late st Contact Info) Description 12/03/2017 Abstract [facility] CONVERSION [address] [place] [address] , Generic Conversion, Social History Tobacco Use [...] on filedocumented in this encounter Care Teams Geophysical Prospector Relationship Specialty Start Date End Date Reagan Fonseca MD [address] [place] [address] PCP - General FAMILY PRACTICE 01/26/25 documented as of this encounter
--- OUTSIDE RECORDS SUMMARY | 2025-01-29 23:12 | XMS_ITS ---
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 Name Role Phone JOHAN SULLIVAN Attending Unavailable Immunization Immunization Date Status Additional Notes Code Code System Tdap 03/26/2021 Completed 115 CVX Results CBC W/ DIFF - Collect Date/T sarah: 01/08/2025 13:23 [facility] ID: [id number] [address] [place] [address], [id number] LOINC: 84422-8 Test Value Unit Reference Range Code Code [...] H=36.0 L PLATELETS 43 10^3uL L=100 H=400 61155-1 LOINC L RDW 16.1 % L=11.7 H=15.5 H %GRAN L=40.0 H=70.0 79331-1 LOINC %LYMPH L=20.0 H=45.0 736-9 LOINC %MONO L=2.0 H=10.0 25936-5 LOINC %EOS L=0.0 H=6.0 713-8 LOINC %BASO L=0.0 H=3.0 706-2 LOINC #NEUT L=1.9 H=7.6 75161-8 LOINC #LYMPH L=0.9 H=4.9 88894-6 LOINC #MONO L=0.1 H=0.9 05092-1 LOINC #EOS L=0.0 H=0.6 712-0 LOINC #BASO L=0.00 H=0.10 75752-8 LOINC #IM GRANS L=0.0 H=7.0 65393-7 LOINC %IM GRANS L=0.0 H=5.0 99824-7 LOINC %NRB L=0.0 H=0.2 82298-3 LOINC #NRB L=0.000 H=0.012 00614-3 LOINC MANUAL DIFF SEE BELOW A SEG [...] L=0 H=0 BLASTS 0 % L=0 H=0 90543-6 LOINC PANDA LYMPHS 0.00 % L=0.00 H=5.00 SMUDGE CELLS 0 % L=0 H=0 NRBC 0.0 % L=0.0 H=0.0 PLTS DECREASED NEUT # 0.7 10^3uL L=1.9 H=7.6 LL LYMPH # 1.2 10^3uL L=0.9 H=4.9 MONO # 0.0 10^3uL L=0.1 H=0.9 L EOS # 0.1 10^3uL L=0.0 H=0.6 712-0 LOINC BASO # 0.0 10^3uL L=0.0 H=0.1 00136-4 LOINC RBC MORPH NOT INDICATED COMPREHENSIVE METABOLIC PANE L - Collect Date/Time: 01/08/2025 13:23 [facility] ID: [id number] [address] [place], [place], [id number] LOINC: 08675-0 Test Value Unit Reference Range Code Code [...] 2028-9 LOINC ANION GAP 10 L=10 H=20 83393-5 LOINC OSMOLALITY 288 mOs/kG L=280 H=296 58844-6 LOINC BUN/CREAT 13.3 3097-3 LOINC CALCIUM 8.9 mg/dL L=8.3 H=10.5 18286-8 LOINC AST 23 U/L L=15 H=46 1920-8 LOINC ALT 15 U/L L=9 H=72 1742-6 LOINC ALKALINE PHOS 61 U/L L=38 H=126 6768-6 LOINC TOTAL BILI 0.3 mg/dL L=0.2 H=1.3 1975-2 LOINC ALBUMIN 3.9 G/dL L=3.5 H=5.0 1751-7 LOINC TOTAL PROTEIN 7.6 g/L L=6.3 H=8.2 2885-2 LOINC A/G RATIO 1.1 75186-8 LOINC AGE 59 34900-8 LOINC eGFR NON-AFR 69 ml/min eGFR AFR [...] Data Found Plan of Treatment US Gallbladder (96938) 12/25/2024 Encounters Encounter Diagnosis Start Date Code Code Sys tem Myelodysplastic syndrome, unspecified 01/08/2025 SNOMED-CT Personal Care Team Section Performer Name Performer Role Active Date Inactive LAURIE Hidalgo PCP - Primary care physician
--- OUTSIDE RECORDS SUMMARY | 2025-01-29 23:12 | XMS_ITS | Encounter Summary ---
Author Organization [facility] Address [address] [place] [address] Care Team Providers Care City Director Name Role Phone Reagan Fonseca MD Primary Care Provider [phone] Encounter Details Date Type Department Care Team (Late st Contact Info) Description 02/24/2019 Abstract SFL CONVERSION [address] [place] [address] , Generic Conversion, Social History Tobacco Use [...] on filedocumented in this encounter Care Teams City Director Relationship Specialty Start Date End Date Reagan Fonseca MD [address] [place] [address] PCP - General FAMILY PRACTICE 01/26/25 documented as of this encounter
--- OUTSIDE RECORDS SUMMARY | 2025-01-29 23:13 | XMS_ITS | Clinical Summary ---
Author Organization [facility] Address [address] [place] [address] Care Team Providers Care Waste Picker Name Role Phone Reagan Fonseca MD Primary Care Provider [phone] Allergies Active Allergy Reactions Criticality Noted Date [...] CDT - 01/26/2025 8:40 PM CDT Emergency [facility] [address] [place] [address] Bharat Young, Medical Problem Discharge Disposition: Home [...] UNITS ORDERED 1 01/26/2025 4:15 PM CDT [facility] ABO/RH A POSITIVE 01/26/2025 4:15 PM CDT [facility] ANTIBODY SCREEN NEGATIVE 4:15 PM CDT [facility] SAMPLE EXPIRATION 01/29/2025,2359 01/26/2025 4:15 PM CDT [facility] BLOOD UNIT NUMBER [id number] 01/26/2025 5:50 PM CDT [facility] PRODUCT: PC LEUKOPOOR IRRAD 01/26/2025 5:50 PM CDT [facility] UNIT DIVISION 00 01/26/2025 5:50 PM CDT [facility] BLOOD UNIT STATUS TRANSFUSED,FINAL 01/28/2025 5:03 AM CDT [facility] ISSUE DATE/TIME [id number] 025 5:03 AM CDT [facility] PRODUCT CODE [id number] 01/28/2025 5:03 AM CDT [facility] ABO/RH Unit A POS 01/28/2025 5:03 AM CDT [facility] ABO/RH UNIT ISBT CODE 6200 01/28/2025 5:03 AM CDT [facility] BLOOD UNIT EXPIRATION DATE [id number] 01/28/2025 5:03 AM CDT [facility] TRANSFUSION STATUS OK TO TRANSFUSE 01/26/2025 5:50 PM CDT [facility] CROSSMATCH COMPATIBLE 01/26/2025 5:50 PM CDT [facility] 01/26/2025 3:25 PM CDT us Bharat Young DO BLOOD BANK TEST ORDER JOCELYN Final Result [facility] [address] [place] [address], * PROTIME/INR, VENOUS (01/26/2025 3:25 PM CDT) PROTIME 11.9 9.4 - 12.5 SEC 01/26/2025 3:40 PM CDT [facility] INR 1.0 0.8 - 1.0 01/26/2025 3:40 PM CDT [facility] 01/26/2025 3:25 PM CDT Bharat Sinha Hector DO LABORATORY Final Result [facility] [address] [place] [address], * (ABNORMAL) BASIC METABOLIC PANEL (01/26/2025 3:25 PM CDT) SODIUM S/P/B 140 136 - 145 MMOL/L 01/26/2025 3:54 PM CDT [facility] POTASSIUM S/P/B 4.0 3.5 - 5.1 MMOL/L 01/26/2025 3:54 PM CDT [facility] CHLORIDE S/P/B 105 98 - 107 MMOL/L 01/26/2025 3:54 PM CDT [facility] CO2 31.3 21.0 - 32.0 MMOL/L 01/26/2025 3:54 PM CDT [facility] GLUCOSE 99 70 - 99 MG/DL 01/26/2025 3:54 PM CDT [facility] Comment: FASTING GLUCOSE 100 TO 125 MG/DL IS CONSISTENT WITH IMPAIRED FASTING GLUCOSE. FASTING GLUCOSE >125 MG/DL IS CONSISTENT WITH DIABETES. RANDOM GLUCOSE >200 MG/DL WITH HYPERGLYCEMIC SYMPTOMS IS CONSISTENT WITH DIABETES. PER ADA GUIDELINES BUN 6 6 - 24 MG/DL 01/26/2025 3:54 PM CDT [facility] CREATININE S/P/B 0.81 0.55 - 1.02 MG/DL 01/26/2025 3:54 PM CDT [facility] CALCIUM S/P/B 8.8 8.4 - 10.5 MG/DL 01/26/2025 3:54 PM CDT [facility] ANION GAP 3.7(L) 5.0 - 15.0 MMOL/L 01/26/2025 3:54 PM CDT [facility] OSMOLALITY (CALC) 288 MOSM/KG 025 3:54 PM CDT [facility] Comment:REFERENCE RANGE NOT ESTABLISHED GFR ESTIMATE 85(L) >89 ML/MIN/1. 73 M2 01/26/2025 3:54 PM CDT [facility] GFR NOTES GFR REFERENCE S: 01/26/2025 3:54 PM CDT [facility] Comment: THE ESTIMATED GFR IS [...] CDT Bharat Young DO LABORATORY Final Result [facility] [address] [place] [address], * (ABNORMAL) CBC W/DIFF AUTOMATED (01/26/2025 3:25 PM CDT) WBC 1.66(L) 4.00 - 10.80 x10'3/uL 01/26/2025 3:44 PM CDT [facility] RBC 2.08(L) 4.10 - 5.40 x10'6/uL 01/26/2025 3:44 PM CDT [facility] HGB 6.6(LL) 12.0 - 16.0 G/DL 01/26/2025 3:44 PM CDT [facility] Comment: CRITICAL VALUE CALLED TO MARYAM ORDONEZ RN ER AT 1544 BY READ BACK AND VERIFIED HCT 21.1(L) 36.0 - 47.0 % 01/26/2025 3:44 PM CDT [facility] MCV 101.4(H) 78.0 - 100.0 FL 01/26/2025 3:44 PM CDT [facility] MCH 31.7(H) 27.0 - 31.0 PG 01/26/2025 3:44 PM CDT [facility] MCHC 31.3(L) 33.0 - 36.0 G/DL 01/26/2025 3:44 PM CDT [facility] RDW 17.0(H) 11.5 - 14.5 % 01/26/2025 3:44 PM CDT [facility] PLT 29(LL) 150 - 350 x10'3/uL 01/26/2025 3:44 PM CDT [facility] Comment: CRITICAL VALUE CALLED TO MARYAM ORDONEZ RN ERAT 1544 BY READ BACK AND VERIFIED MPV 13.4(H) 7.4 - 10.4 FL 01/26/2025 3:44 PM CDT [facility] CBC COMMENT NORMAL REFERENCE RANGE NOT ESTABLISHED FOR THE PROPORTIONAL LEUKOCYTE DIFFERENTIAL. 01/26/2025 3:44 PM CDT [facility] NEUTROPHILS % 30.8 % 01/26/2025 4:00 PM CDT [facility] LYMPHOCYTES % 57.8 % 01/26/2025 4:00 PM CDT [facility] MONOCYTES % 3.6 % 01/26/2025 4:00 PM CDT [facility] EOSINOPHILS % 4.8 % 01/26/2025 4:00 PM CDT [facility] BASOPHILS % 0.6 % 01/26/2025 4:00 PM CDT [facility] IMMATURE GRANS % 2.4 % 01/27/20 4:00 PM CDT [facility] NRBC % 0.0 % 01/26/2025 4:00 PM CDT [facility] ABS. NEUTROPHILS 0.51(L) 1.60 - 8.30 x10'3/uL 01/26/2025 4:00 PM CDT [facility] ABS. LYMPHOCYTES 0.96 0.80 - 4.70 x10'3/uL 01/26/2025 4:00 PM CDT [facility] ABS. MONOCYTES 0.06 0.00 - 1.50 x10'3/uL 01/26/2025 4:00 PM CDT [facility] ABS. EOSINOPHILS 0.08 0.00 - 0.40 x10'3/uL 01/26/2025 4:00 PM CDT [facility] ABS. BASOPHILS 0.01 0.00 - 0.20 x10'3/uL 01/26/2025 4:00 PM CDT [facility] ABS. IMMATURE GRANULOCYTES 0.04(H) 0.00 - 0.03 x10'3/uL 01/26/2025 4:00 PM CDT [facility] ABS. NUCLEATED RBC'S 0.00 0.00 - 0.01 x10'3/uL 01/26/2025 4:00 PM CDT [facility] PLT MORPH. DECREASED 01/26/2025 4:00 PM CDT [facility] RBC MORPHOLOGY 1+ 01/26/2025 4:00 PM CDT [facility] Comment: HYPOCHROMASIA 2+ ANISOCYTOSIS 2+ POIKILOCYTOSIS 1+ ELLIPTOCYTES 1+ MICROCYTES 01/26/2025 3:25 PM CDT Bharat Young DO LABORATORY Final Result [facility] [address] [place] [address], from Last 3 Months Insurance [employer] MED[employer] Care Teams Waste Picker Relationship Specialty Start Date End Date Reagan Fonseca MD [address] [place] [address] PCP - General FAMILY PRACTICE 01/26/25
--- OUTSIDE RECORDS SUMMARY | 2025-01-29 23:13 | XMS_ITS ---
Author Organization Unknown Address [address] [place] [phone] Phone Care Team Providers Care Director Outcomes Name Role Phone JOHAN SULLIVAN Attending Unavailable Immunization Immunization Date Status Additional Notes Code Code System Tdap 03/26/2021 Completed 115 CVX Results US GALLBLADDER - Completed: 12/25/2024 12:00 LOINC: \TM00\12PI\DRAo\BM09\ \MRHo\ [address] [address] ---------NAME--------- NUMBER SEX AGE ADMIT DISC. XRAY# F/C TYPE CHUYITA TONY [id number] F 59 12/25/24 12/25/24 30386 MBJ O/P DATE OF : 1965 M/R# [id number] PH#: [phone] RM \MRHx\ LOCATION: TRANSCRIBED: 12/25/24 13:39 US GALLBLADDER [id number] COMPLETED:12/25/24 12:00 APC 80864 {REASON-US ABD: ABDOMINAL PAIN PHYSICIAN: JOHAN R [...] of gallstones or acute cholecystitis. Hepatic steatosis. [employer]OTS ORGANIZER \ITLo\ \UNDo\ \UNDx\ \ITLx\ Reviewed and Electronically [...] Data Found Plan of Treatment US Gallbladder (32548) 12/25/2024 Encounters Encounter Diagnosis Start Date Code Code Sys tem Fatty (change of) liver, not elsewhere classified 04/2025 SNOMED-CT Personal Care Team Section Performer Name Performer Role Active Date Inactive LAURIE Hidalgo PCP - Primary care physician Imaging Narrative Notes [facility] 12/25/2024 13:[address] [address] ---------NAME--------- NUMBER SEX AGE ADMIT DISC. XRAY# F/C TYPE CHUYITA TONY [id number] F 59 12/25/24 12/25/24 18404 MBJ O/P DATE OF : 1965 M/R# [id number] #: [id number] LOCATION: TRANSCRIBED: 12/25/24 13:39 US GALLBLADDER 74529 COMPLETED:12/25/24 12:00 APC 25018 {REASON-US ABD: ABDOMINAL PAIN PHYSICIAN: JOHAN RADIOLOGY [...] of gallstones or acute cholecystitis. Hepatic steatosis. [employer]S ORGANIZER Reviewed and Electronically Signed by: Ivan Acosta MD Signed Date: 12/25/24 13:39
--- OUTSIDE RECORDS SUMMARY | 2025-01-29 23:13 | XMS_ITS ---
Author Organization Unknown Address [address] [place] [phone] Phone Care Team Providers Care Cisco Engineer Name Role Phone PIPPA BURCIAGAWade Attending Unavailable JOHAN SULLIVAN Primary Unavailable Immunization Immunization Date Status Additional Notes Code Code System Tdap 03/26/2021 Completed 115 CVX Results CBC W/ DIFF - Collect Date/T sarah: 01/23/2025 14:13 [facility] ID: [id number] [address] [place] [address], [id number] LOINC: 38324-3 Test Value Unit Reference Range Code Code [...] H=36.0 L PLATELETS 32 10^3uL L=100 H=400 25994-5 LOINC L RDW 17.1 % L=11.7 H=15.5 H %GRAN L=40.0 H=70.0 41777-4 LOINC %LYMPH L=20.0 H=45.0 736-9 LOINC %MONO L=2.0 H=10.0 63230-0 LOINC %EOS L=0.0 H=6.0 713-8 LOINC %BASO L=0.0 H=3.0 706-2 LOINC #NEUT L=1.9 H=7.6 85916-8 LOINC CALLED TO: CHRISTOPH BillingsleyHONORIO AT: 1448 01/23/25 BY: SDK #LYMPH L=0.9 H=4.9 44511-2 LOINC #MONO L=0.1 H=0.9 67587-8 LOINC #EOS L=0.0 H=0.6 712-0 LOINC #BASO L=0.00 H=0.10 20357-4 LOINC #IM GRANS L=0.0 H=7.0 18521-6 LOINC %IM GRANS L=0.0 H=5.0 85097-3 LOINC %NRB L=0.0 H=0.2 35027-3 LOINC #NRB L=0.000 H=0.012 18135-7 LOINC MANUAL DIFF SEE BELOW A SEG [...] L=0 H=0 BLASTS 0 % L=0 H=0 74830-3 LOINC PANDA LYMPHS 10.00 % L=0.00 H=5.00 H SMUDGE CELLS 0 % L=0 H=0 NRBC 0.0 % L=0.0 H=0.0 PLTS DECREASED NEUT # 0.6 10^3uL L=1.9 H=7.6 LL LYMPH # 1.0 10^3uL L=0.9 H=4.9 MONO # 0.1 10^3uL L=0.1 H=0.9 EOS # 0.1 10^3uL L=0.0 H=0.6 712-0 LOINC BASO # 0.0 10^3uL L=0.0 H=0.1 71084-9 LOINC RBC MORPH NOT INDICATED BB ABO AND RH TYPE - Collect Date/Time: 01/23/2025 14:13 [facility] ID: [id number] [place], [place], [id number] LOINC: 60135-3 Test Value Unit Reference Range Code Code System Flag ABO TYPE A 883-9 LOINC RH TYPE POSITIVE COMPREHENSIVE METABOLIC PANE L - Collect Date/Time: 01/23/2025 14:13 [facility] ID: [id number] [place] [address], [id number] LOINC: 19202-4 Test Value Unit Reference Range Code Code System Flag FASTING UNKNOWN BUN 11 mg/dL L=7 H=20 3094-0 LOINC CREATININE 0.80 mg/dL L=0.52 H=1.04 2160-0 LOINC GLUCOSE 89 mg/dL L=74 H=106 2345-7 LOINC SODIUM 141 mmol/L L=132 H=144 2951-2 LOINC POTASSIUM 4.1 mmol/L L=3.5 H=5.1 2823-3 LOINC CHLORIDE 106 mmol/L L=98 H=107 2075-0 LOINC CO2 30.0 mmol/L L=22.0 H=30.0 2028-9 LOINC ANION GAP 9 L=10 H=20 42602-0 LOINC L OSMOLALITY 291 mOs/kG L=280 H=296 57761-8 LOINC BUN/CREAT 13.8 3097-3 LOINC CALCIUM 8.7 mg/dL L=8.3 H=10.5 96146-1 LOINC AST 20 U/L L=15 H=46 1920-8 LOINC ALT 12 U/L L=9 H=72 1742-6 LOINC ALKALINE PHOS 71 U/L L=38 H=126 6768-6 LOINC TOTAL BILI 0.2 mg/dL L=0.2 H=1.3 1975-2 LOINC ALBUMIN 3.7 G/dL L=3.5 H=5.0 1751-7 LOINC TOTAL PROTEIN 6.8 g/L L=6.3 H=8.2 2885-2 LOINC A/G RATIO 1.2 41816-1 LOINC AGE 59 74888-3 LOINC eGFR NON-AFR 79 ml/min eGFR AFR AMER 96 ml/min BB RETYPE ABO AND RH TYPE - Collect Date/Time: 01/23/2025 14:13 [facility] ID: [id number] [address] [place], [place], [phone] LOINC: 51503-0 Test Value Unit Reference Range Code Code [...] Data Found Plan of Treatment US Gallbladder (57485) 12/25/2024 Encounters Encounter Diagnosis Start Date Code Code Sys tem Myelodysplastic syndrome, unspecified 01/23/2025 SNOMED-CT Personal Care Team Section Performer Name Performer Role Active Date Inactive LAURIE Hidalgo PCP - Primary care physician
--- OUTSIDE RECORDS SUMMARY | 2025-01-29 23:13 | XMS_ITS | Continuity of Care Document ---
Author Organization [facility] Address [address] [place] [address] Phone Care Team Providers Care Yarn Handler Name Role Phone Yohana Ray PT Unavailable Unavailable Procedures Procedure Date PT Evaluation Moderate Complexity Therapeutic Activities Neuromuscular Re-Ed Manual Therapy Advance Directives Directive Yes / No Effective Date File Name No Information Encounters Encounter Description Practice Location Reason(s) For Visit Diagnoses Date Provider Providers Copied on Encounter [facility], [address] [facility] [address], [place], [place], [id number], tel:[phone] [place] No Information Flor Muller. . [facility], [facility] [address], [place], [place], [id number], tel:[phone] [place] No Information Flor Muller. . Family History Family Member Type Diagnosis Age At Onset No Information Payers Payer name Insurance type Covered democrat ID Authoriza tion(s) [employer] Medicare Replacement [id number] Medicaid OON Write Off CI 00 Social [...]
[2025-01-29 23:20] LABS: Hemoglobin 7.5 g/dL (12.0-15.0); Mean Corpuscular HGB Conc 31.3 g/dL (32-36); Mean Corpuscular Hemoglobin 30.6 pg (27.0-31.0); Mean Platelet Volume 11.9 fl (9.2-11.8); Platelet Count Result 28 K/mm3 (150-420); Red Blood Count 2.45 M/mm3 (4.20-5.40); Red Cell Distribution Width 18.5 % (11.6-14.4)
[2025-01-29 23:31] LABS: Lactic Acid Reflex 0.8 mmol/L (0.4-2.0)
[2025-01-29 23:32] LABS: Alanine Aminotransferase 14 U/L (6-35); Albumin Level 3.7 g/dL (3.5-5.1); Alkaline Phosphatase 68 U/L (38-126); Anion Gap 3 mmol/L (4-12); Aspartate Amino Transferase 23 U/L (14-36); Bilirubin,Total 0.3 mg/dL (0.2-1.3); Blood Urea Nitrogen 10 mg/dL (7-17); Calcium 8.5 mg/dL (8.4-10.2); Carbon Dioxide 30 mmol/L (22-30); Chloride 104 mmol/L (98-107); Estimated CRCL calculation 70 ml/min; Estimated Glomerular Filt Rate > 60; Glucose 133 mg/dL (65-110); Osmolality Calculated 285 mOsm/kg (285-295); Potassium 4.1 mmol/L (3.4-5.0); Sodium 137 mmol/L (137-145); Total Protein 6.8 g/dL (6.3-8.2)
--- NOTE | 2025-01-29 23:37 | PC.NURSE ---
WARM BLANKETS GIVEN. CALL LIGHT IN REACH
[2025-01-29 23:40] LABS: White Blood Count 1.5 K/mm3 (4.8-10.8)
[2025-01-30] MEDS: DOXYCYCLINE HYCLATE 100 MG TABLET PO (00:52)
[2025-01-30 01:04] LABS: Band Neutrophils Percent 0 % (0-6); Basophils Absolute Manual 0.01 K/mm3 (0-0.1); Basophils Percent Manual 1 % (0-1); Eosinophils Absolute Manual 0.04 K/mm3 (0.02-0.50); Eosinophils Percent Manual 3 % (1-6); Lymphocytes Absolute Manual 0.85 K/mm3 (1.1-4.5); Lymphocytes Percent Manual 57 % (18-44); Monocytes Absolute Manual 0.07 K/mm3 (0.1-0.90); Monocytes Percent Manual 5 % (3-9); Neutrophils Absolute Manual 0.43 K/mm3 (1.7-7.2); Neutrophils Percent Manual 29 % (46-73)
[2025-01-30 01:06] LABS: Promyelocytes Percent 5 %
[2025-01-30 01:07] LABS: Anisocytosis 1+; Platelet Estimate Decreased (Adequate)
[2025-01-30 01:08] LABS: Schistocytes None Seen
[2025-01-30 01:16] VITALS: BP 142/70; PULSE 88; RESP 18; O2SAT 97
== END 2025-01-30 01:16 | disposition home or self-care (01) ==
PROVIDERS: Emergency Provider Emergency Medicine; PCP Family Medicine
DX: D61.9 Aplastic anemia, unspecified (principal); L03.114 Cellulitis of left upper limb; J44.9 Chronic obstructive pulmonary disease, unspecified; E11.9 Type 2 diabetes mellitus without complications; F17.210 Nicotine dependence, cigarettes, uncomplicated
CPT/HCPCS: 36415; 80053; 83605; 85025; 85055; 87040; 99283; A9270

== ENCOUNTER 2025-02-04 17:32 | Emergency (ER) | payer OTHER, SELFPAY ==
[2025-02-04 17:35] VITALS: BP 149/67; PULSE 92; RESP 18; TEMP 36.9; O2SAT 97
--- OUTSIDE RECORDS SUMMARY | 2025-02-04 17:36 | XMS_ITS ---
Author Organization Unknown Address [address] [place] [phone] Phone Care Team Providers Care Data Control Assistant Name Role Phone PIPPA GREGORIONISHA Attending Unavailable JOHAN SULLIVAN Primary Unavailable Immunization Immunization Date Status Additional Notes Code Code System Tdap 03/26/2021 Completed 115 CVX Social History Type Status Start Date End Date Code Code Syst em Smoking History Unknown if ever smoked [id number] Sex Female Vital Signs Vital Sign Value Unit [place] Value [place] Unit Date/Time Recent/Initial? Code Code System Body Mass Index 34.97 kg/m2 02/04/2025 09:56 Initial 16955 -5 [facility] Systolic Blood Pressure 168 mm[Hg] 02/04/2025 09:53 Initial 8480- 6 LOINC Diastolic Blood Pressure 73 mm[Hg] 02/04/2025 09:53 Initial 8462- 4 INC Body Surface Area 2.24 m2 02/04/2025 09:56 Initial 3140- 1 LOINC Height 172.720 0 cm 68.00 in 02/04/2025 09:56 Initial 8302- 2 LOINC O2 Saturation 100 % 2024 09:53 Initial 76254 -5 LOINC Pulse 99.0 /min 02/04/2025 09:53 Initial 8867- 4 LOINC Respiration 22 /min 02/05/20 09:53 Initial 9279- 1 LOINC Temperature 36.3 Freda 97.3 F 02/05/20 09:53 Initial 8310- 5 LOINC Weight 104.33 kg 230.00 lbs 02/04/2025 09:56 Initial 77381 -7 [facility] Discharge Instructions Should you have any questions prior to discharge, please contact a member of your healthcare team. If you have left the hospital and have any questions, please contact your primary care physician. Reason For Referral No Data Found Plan of Treatment No Data Found Personal Care Team Section Performer Name Performer Role Active Date Inactive LAURIE Hidalgo PCP - Primary care physician
--- OUTSIDE RECORDS SUMMARY | 2025-02-04 17:36 | XMS_ITS | Encounter Summary ---
Author Organization [facility] Address [address] [place] [address] Care Team Providers Care Plastics Technician Name Role Phone Reagan Fonseca MD Primary Care Provider [phone] Encounter Details Date Type Department Care Team (Late st Contact Info) Description 12/03/2017 Abstract SJS CONVERSION [address] [place] [address] , Generic Conversion, Social History Tobacco Use [...] on filedocumented in this encounter Care Teams Plastics Technician Relationship Specialty Start Date End Date Reagan Fonseca MD [address] [place] [address] PCP - General FAMILY PRACTICE 01/26/25 documented as of this encounter
--- OUTSIDE RECORDS SUMMARY | 2025-02-04 17:36 | XMS_ITS | Continuity of Care Document ---
Author Organization [facility] Address [address] [place] [address] Phone Care Team Providers Care Construction Specialist Name Role Phone Yohana Ray PT Unavailable Unavailable Procedures Procedure Date PT Evaluation Moderate Complexity Therapeutic Activities Neuromuscular Re-Ed Manual Therapy Advance Directives Directive Yes / No Effective Date File Name No Information Encounters Encounter Description Practice Location Reason(s) For Visit Diagnoses Date Provider Providers Copied on Encounter [facility], [address] [facility] [address], [place], [place], [id number], tel:[phone] [place] No Information Flor Muller. . [facility], [facility] [address], [place], [place], [address], tel:[phone] [place] No Information Flor Muller. . Family History Family Member Type Diagnosis Age At Onset No Information Payers Payer name Insurance type Covered green party ID Authoriza tion(s) [employer] Medicare Replacement 16 [id number] Medicaid OON Write Off CI 00 Social [...]
--- OUTSIDE RECORDS SUMMARY | 2025-02-04 17:36 | XMS_ITS | Clinical Summary ---
Author Organization [facility] Address [address] [place] [address] Care Team Providers Care System Manager Name Role Phone Reagan Fonseca MD Primary Care Provider [phone] Allergies Active Allergy Reactions Criticality Noted Date [...] CDT - 01/26/2025 8:40 PM CDT Emergency [facility] [address] [place] [address] Bharat Young, Medical Problem Discharge Disposition: Home [...] UNITS ORDERED 1 01/26/2025 4:15 PM CDT [facility] ABO/RH A POSITIVE 01/26/2025 4:15 PM CDT [facility] ANTIBODY SCREEN NEGATIVE 4:15 PM CDT [facility] SAMPLE EXPIRATION 01/29/2025,2359 01/26/2025 4:15 PM CDT [facility] BLOOD UNIT NUMBER [id number] 01/26/2025 5:50 PM CDT [facility] PRODUCT: PC LEUKOPOOR IRRAD 01/26/2025 5:50 PM CDT [facility] UNIT DIVISION 00 01/26/2025 5:50 PM CDT [facility] BLOOD UNIT STATUS TRANSFUSED,FINAL 01/28/2025 5:03 AM CDT [facility] ISSUE DATE/TIME [id number] 025 5:03 AM CDT [facility] PRODUCT CODE [id number] 01/28/2025 5:03 AM CDT [facility] ABO/RH Unit A POS 01/28/2025 5:03 AM CDT [facility] ABO/RH UNIT ISBT CODE 6200 01/28/2025 5:03 AM CDT [facility] BLOOD UNIT EXPIRATION DATE [id number] 01/28/2025 5:03 AM CDT [facility] TRANSFUSION STATUS OK TO TRANSFUSE 01/26/2025 5:50 PM CDT [facility] CROSSMATCH COMPATIBLE 01/26/2025 5:50 PM CDT [facility] 01/26/2025 3:25 PM CDT us Bharat Young DO BLOOD BANK TEST ORDER JOCELYN Final Result [facility] [address] [place] [address], * PROTIME/INR, VENOUS (01/26/2025 3:25 PM CDT) PROTIME 11.9 9.4 - 12.5 SEC 01/26/2025 3:40 PM CDT [facility] INR 1.0 0.8 - 1.0 01/26/2025 3:40 PM CDT [facility] 01/26/2025 3:25 PM CDT Bharat Sinha Hector DO LABORATORY Final Result [facility] [address] [place] [address], * (ABNORMAL) BASIC METABOLIC PANEL (01/26/2025 3:25 PM CDT) SODIUM S/P/B 140 136 - 145 MMOL/L 01/26/2025 3:54 PM CDT [facility] POTASSIUM S/P/B 4.0 3.5 - 5.1 MMOL/L 01/26/2025 3:54 PM CDT [facility] CHLORIDE S/P/B 105 98 - 107 MMOL/L 01/26/2025 3:54 PM CDT [facility] CO2 31.3 21.0 - 32.0 MMOL/L 01/26/2025 3:54 PM CDT [facility] GLUCOSE 99 70 - 99 MG/DL 01/26/2025 3:54 PM CDT [facility] Comment: FASTING GLUCOSE 100 TO 125 MG/DL IS CONSISTENT WITH IMPAIRED FASTING GLUCOSE. FASTING GLUCOSE >125 MG/DL IS CONSISTENT WITH DIABETES. RANDOM GLUCOSE >200 MG/DL WITH HYPERGLYCEMIC SYMPTOMS IS CONSISTENT WITH DIABETES. PER ADA GUIDELINES BUN 6 6 - 24 MG/DL 01/26/2025 3:54 PM CDT [facility] CREATININE S/P/B 0.81 0.55 - 1.02 MG/DL 01/26/2025 3:54 PM CDT [facility] CALCIUM S/P/B 8.8 8.4 - 10.5 MG/DL 01/26/2025 3:54 PM CDT [facility] ANION GAP 3.7(L) 5.0 - 15.0 MMOL/L 01/26/2025 3:54 PM CDT [facility] OSMOLALITY (CALC) 288 MOSM/KG 025 3:54 PM CDT [facility] Comment:REFERENCE RANGE NOT ESTABLISHED GFR ESTIMATE 85(L) >89 ML/MIN/1. 73 M2 01/26/2025 3:54 PM CDT [facility] GFR NOTES GFR REFERENCE S: 01/26/2025 3:54 PM CDT [facility] Comment: THE ESTIMATED GFR IS [...] CDT Bharat Young DO LABORATORY Final Result [facility] [address] [place] [address], * (ABNORMAL) CBC W/DIFF AUTOMATED (01/26/2025 3:25 PM CDT) WBC 1.66(L) 4.00 - 10.80 x10'3/uL 01/26/2025 3:44 PM CDT [facility] RBC 2.08(L) 4.10 - 5.40 x10'6/uL 01/26/2025 3:44 PM CDT [facility] HGB 6.6(LL) 12.0 - 16.0 G/DL 01/26/2025 3:44 PM CDT [facility] Comment: CRITICAL VALUE CALLED TO MARYAM ORDONEZ RN ER AT 1544 BY READ BACK AND VERIFIED HCT 21.1(L) 36.0 - 47.0 % 01/26/2025 3:44 PM CDT [facility] MCV 101.4(H) 78.0 - 100.0 FL 01/26/2025 3:44 PM CDT [facility] MCH 31.7(H) 27.0 - 31.0 PG 01/26/2025 3:44 PM CDT [facility] MCHC 31.3(L) 33.0 - 36.0 G/DL 01/26/2025 3:44 PM CDT [facility] RDW 17.0(H) 11.5 - 14.5 % 01/26/2025 3:44 PM CDT [facility] PLT 29(LL) 150 - 350 x10'3/uL 01/26/2025 3:44 PM CDT [facility] Comment: CRITICAL VALUE CALLED TO MARYAM ORDONEZ RN ERAT 1544 BY READ BACK AND VERIFIED MPV 13.4(H) 7.4 - 10.4 FL 01/26/2025 3:44 PM CDT [facility] CBC COMMENT NORMAL REFERENCE RANGE NOT ESTABLISHED FOR THE PROPORTIONAL LEUKOCYTE DIFFERENTIAL. 01/26/2025 3:44 PM CDT [facility] NEUTROPHILS % 30.8 % 01/26/2025 4:00 PM CDT [facility] LYMPHOCYTES % 57.8 % 01/26/2025 4:00 PM CDT [facility] MONOCYTES % 3.6 % 01/26/2025 4:00 PM CDT [facility] EOSINOPHILS % 4.8 % 01/26/2025 4:00 PM CDT [facility] BASOPHILS % 0.6 % 01/26/2025 4:00 PM CDT [facility] IMMATURE GRANS % 2.4 % 01/27/20 4:00 PM CDT [facility] NRBC % 0.0 % 01/26/2025 4:00 PM CDT [facility] ABS. NEUTROPHILS 0.51(L) 1.60 - 8.30 x10'3/uL 01/26/2025 4:00 PM CDT [facility] ABS. LYMPHOCYTES 0.96 0.80 - 4.70 x10'3/uL 01/26/2025 4:00 PM CDT [facility] ABS. MONOCYTES 0.06 0.00 - 1.50 x10'3/uL 01/26/2025 4:00 PM CDT [facility] ABS. EOSINOPHILS 0.08 0.00 - 0.40 x10'3/uL 01/26/2025 4:00 PM CDT [facility] ABS. BASOPHILS 0.01 0.00 - 0.20 x10'3/uL 01/26/2025 4:00 PM CDT [facility] ABS. IMMATURE GRANULOCYTES 0.04(H) 0.00 - 0.03 x10'3/uL 01/26/2025 4:00 PM CDT [facility] ABS. NUCLEATED RBC'S 0.00 0.00 - 0.01 x10'3/uL 01/26/2025 4:00 PM CDT [facility] PLT MORPH. DECREASED 01/26/2025 4:00 PM CDT [facility] RBC MORPHOLOGY 1+ 01/26/2025 4:00 PM CDT [facility] Comment: HYPOCHROMASIA 2+ ANISOCYTOSIS 2+ POIKILOCYTOSIS 1+ ELLIPTOCYTES 1+ MICROCYTES 01/26/2025 3:25 PM CDT Bharat Young DO LABORATORY Final Result [facility] [address] [place] [address], from Last 3 Months Insurance [employer] Care Teams System Manager Relationship Specialty Start Date End Date Reagan Fonseca MD [address] [place] [address] PCP - General FAMILY PRACTICE 01/26/25
--- OUTSIDE RECORDS SUMMARY | 2025-02-04 17:36 | XMS_ITS ---
Author Organization Unknown Address [address] [place] [phone] Phone Care Team Providers Care Auto Parts Handler Name Role Phone JOHAN SULLIVAN Attending Unavailable Immunization Immunization Date Status Additional Notes Code Code System Tdap 03/26/2021 Completed 115 CVX Results CBC W/ DIFF - Collect Date/T sarah: 01/08/2025 13:23 [facility] ID: [id number] [address] [place] [address], [id number] LOINC: 54368-2 Test Value Unit Reference Range Code Code [...] H=36.0 L PLATELETS 43 10^3uL L=100 H=400 18741-8 LOINC L RDW 16.1 % L=11.7 H=15.5 H %GRAN L=40.0 H=70.0 17471-5 LOINC %LYMPH L=20.0 H=45.0 736-9 LOINC %MONO L=2.0 H=10.0 50626-0 LOINC %EOS L=0.0 H=6.0 713-8 LOINC %BASO L=0.0 H=3.0 706-2 LOINC #NEUT L=1.9 H=7.6 70377-4 LOINC #LYMPH L=0.9 H=4.9 30783-3 LOINC #MONO L=0.1 H=0.9 09343-5 LOINC #EOS L=0.0 H=0.6 712-0 LOINC #BASO L=0.00 H=0.10 89183-5 LOINC #IM GRANS L=0.0 H=7.0 04966-7 LOINC %IM GRANS L=0.0 H=5.0 28779-1 LOINC %NRB L=0.0 H=0.2 75183-5 LOINC #NRB L=0.000 H=0.012 77824-2 LOINC MANUAL DIFF SEE BELOW A SEG [...] L=0 H=0 BLASTS 0 % L=0 H=0 66172-0 LOINC PANDA LYMPHS 0.00 % L=0.00 H=5.00 SMUDGE CELLS 0 % L=0 H=0 NRBC 0.0 % L=0.0 H=0.0 PLTS DECREASED NEUT # 0.7 10^3uL L=1.9 H=7.6 LL LYMPH # 1.2 10^3uL L=0.9 H=4.9 MONO # 0.0 10^3uL L=0.1 H=0.9 L EOS # 0.1 10^3uL L=0.0 H=0.6 712-0 LOINC BASO # 0.0 10^3uL L=0.0 H=0.1 24655-7 LOINC RBC MORPH NOT INDICATED COMPREHENSIVE METABOLIC PANE L - Collect Date/Time: 01/08/2025 13:23 [facility] ID: [id number] [address] [place], [place], [id number] LOINC: 77239-0 Test Value Unit Reference Range Code Code [...] 2028-9 LOINC ANION GAP 10 L=10 H=20 52987-9 LOINC OSMOLALITY 288 mOs/kG L=280 H=296 84664-3 LOINC BUN/CREAT 13.3 3097-3 LOINC CALCIUM 8.9 mg/dL L=8.3 H=10.5 73686-2 LOINC AST 23 U/L L=15 H=46 1920-8 LOINC ALT 15 U/L L=9 H=72 1742-6 LOINC ALKALINE PHOS 61 U/L L=38 H=126 6768-6 LOINC TOTAL BILI 0.3 mg/dL L=0.2 H=1.3 1975-2 LOINC ALBUMIN 3.9 G/dL L=3.5 H=5.0 1751-7 LOINC TOTAL PROTEIN 7.6 g/L L=6.3 H=8.2 2885-2 LOINC A/G RATIO 1.1 96083-7 LOINC AGE 59 53808-3 LOINC eGFR NON-AFR 69 ml/min eGFR AFR AMER 83 ml/min Social History Type Status Start Date End Date Code Code Syst em Smoking History Unknown if ever smoked [address] Sex Female Hospital Discharge Instructions Should you have any questions prior to discharge, please contact a member of your healthcare team. If you have left the hospital and have any questions, please contact your primary care physician. Reason For Referral No Data Found Plan of Treatment No Data Found Encounters Encounter Diagnosis Start Date Code Code Sys tem Myelodysplastic syndrome, unspecified 01/08/2025 SNOMED-CT Personal Care Team Section Performer Name Performer Role Active Date Inactive Da LAURIE Rosa PCP - Primary care physician
--- OUTSIDE RECORDS SUMMARY | 2025-02-04 17:36 | XMS_ITS ---
Author Organization Unknown Address [address] [place] [phone] Phone Care Team Providers Care Java Flex Developer Name Role Phone PIPPA KNOX Attending Unavailable JOHAN SULLIVAN Primary Unavailable Immunization Immunization Date Status Additional Notes Code Code System Tdap 03/26/2021 Completed 115 CVX Results CBC W/ DIFF - Collect Date/T sarah: 01/23/2025 14:13 [facility] ID: [id number] [address] [place] [address], [id number] LOINC: 27723-9 Test Value Unit Reference Range Code Code [...] H=36.0 L PLATELETS 32 10^3uL L=100 H=400 25778-5 LOINC L RDW 17.1 % L=11.7 H=15.5 H %GRAN L=40.0 H=70.0 74092-0 LOINC %LYMPH L=20.0 H=45.0 736-9 LOINC %MONO L=2.0 H=10.0 57497-3 LOINC %EOS L=0.0 H=6.0 713-8 LOINC %BASO L=0.0 H=3.0 706-2 LOINC #NEUT L=1.9 H=7.6 92457-6 LOINC CALLED TO: CHRISTOPH MÁRQUEZ AT: 1448 01/23/25 BY: SDK #LYMPH L=0.9 H=4.9 54395-1 LOINC #MONO L=0.1 H=0.9 01810-5 LOINC #EOS L=0.0 H=0.6 712-0 LOINC #BASO L=0.00 H=0.10 18123-8 LOINC #IM GRANS L=0.0 H=7.0 44320-9 LOINC %IM GRANS L=0.0 H=5.0 10661-2 LOINC %NRB L=0.0 H=0.2 22185-1 LOINC #NRB L=0.000 H=0.012 37089-4 LOINC MANUAL DIFF SEE BELOW A SEG [...] L=0 H=0 BLASTS 0 % L=0 H=0 20513-7 LOINC PANDA LYMPHS 10.00 % L=0.00 H=5.00 H SMUDGE CELLS 0 % L=0 H=0 NRBC 0.0 % L=0.0 H=0.0 PLTS DECREASED NEUT # 0.6 10^3uL L=1.9 H=7.6 LL LYMPH # 1.0 10^3uL L=0.9 H=4.9 MONO # 0.1 10^3uL L=0.1 H=0.9 EOS # 0.1 10^3uL L=0.0 H=0.6 712-0 LOINC BASO # 0.0 10^3uL L=0.0 H=0.1 66237-6 LOINC RBC MORPH NOT INDICATED COMPREHENSIVE METABOLIC PANE L - Collect Date/Time: 01/23/2025 14:13 [facility] ID: [id number] [address] [place], [place], [id number] LOINC: 56316-9 Test Value Unit Reference Range Code Code [...] 2028-9 LOINC ANION GAP 9 L=10 H=20 27459-2 LOINC L OSMOLALITY 291 mOs/kG L=280 H=296 70533-4 LOINC BUN/CREAT 13.8 3097-3 LOINC CALCIUM 8.7 mg/dL L=8.3 H=10.5 82869-7 LOINC AST 20 U/L L=15 H=46 1920-8 LOINC ALT 12 U/L L=9 H=72 1742-6 LOINC ALKALINE PHOS 71 U/L L=38 H=126 6768-6 LOINC TOTAL BILI 0.2 mg/dL L=0.2 H=1.3 1975-2 LOINC ALBUMIN 3.7 G/dL L=3.5 H=5.0 1751-7 LOINC TOTAL PROTEIN 6.8 g/L L=6.3 H=8.2 2885-2 LOINC A/G RATIO 1.2 27334-5 LOINC AGE 59 26653-6 LOINC eGFR NON-AFR 79 ml/min eGFR AFR AMER 96 ml/min BB ABO AND RH TYPE - Collect Date/Time: 01/23/2025 14:13 [facility] ID: [id number] [address] [place], [place], [phone] LOINC: 19290-1 Test Value Unit Reference Range Code Code System Flag ABO TYPE A 883-9 LOINC RH TYPE POSITIVE BB RETYPE ABO AND RH TYPE - Collect Date/Time: 01/23/2025 14:13 [facility] ID: [id number] [address] [place], [place], [id number] LOINC: 78630-4 Test Value Unit Reference Range Code Code System Flag ABO TYPE A 883-9 LOINC RH TYPE POSITIVE Social History Type Status Start Date End Date Code Code Syst em Smoking History Unknown if ever smoked [id number] Sex Female Hospital Discharge Instructions [...]
--- OUTSIDE RECORDS SUMMARY | 2025-02-04 17:36 | XMS_ITS | Encounter Summary ---
Author Organization [facility] Address [address] [place] [id number] Care Team Providers Care Magazine Publisher Name Role Phone Reagan Fonseca MD Primary Care Provider [phone] Encounter Details Date Type Department Care Team (Late st Contact Info) Description 02/24/2019 Abstract [facility] CONVERSION [address] [place] [address] , Generic Conversion, Social History Tobacco Use [...] on filedocumented in this encounter Care Teams Magazine Publisher Relationship Specialty Start Date End Date Reagan Fonseca MD [address] [place] [address] PCP - General FAMILY PRACTICE 01/26/25 documented as of this encounter
--- OUTSIDE RECORDS SUMMARY | 2025-02-04 17:37 | XMS_ITS ---
Author Organization Unknown Address [address] [place] [phone] Phone Care Team Providers Care Creative Resource Manager Name Role Phone JOHAN SULLIVAN Attending Unavailable Immunization Immunization Date Status Additional Notes Code Code System Tdap 03/26/2021 Completed 115 CVX Results US GALLBLADDER - Completed: 12/25/2024 12:00 LOINC: \TM00\12PI\DRAo\BM09\ \MRHo\ [address] [address] ---------NAME--------- NUMBER SEX AGE ADMIT DISC. XRAY# F/C TYPE CHUYITA TONY [id number] F 59 12/25/24 12/25/24 [id number] MBJ O/P DATE OF : 1965 M/R# [id number] PH#: [phone] RM \MRHx\ LOCATION: TRANSCRIBED: 12/25/24 13:39 US GALLBLADDER [id number] COMPLETED:12/25/24 12:00 APC 89654 {REASON-US ABD: ABDOMINAL PAIN PHYSICIAN: JOHAN R [...] gallstones or acute cholecystitis. Hepatic steatosis. F COINS INSPECTOR \ITLo\ \UNDo\ \UNDx\ \ITLx\ Reviewed and Electronically Signed by: Ivan Acosta MD Signed Date: 12/25/24 13:39 Social History Type Status Start Date End Date Code Code Syst em Smoking History Unknown if ever smoked [id number] Sex Female Hospital Discharge Instructions [...] - Primary care physician Imaging Narrative Notes [facility] 12/25/2024 13:[address] [address] ---------NAME--------- NUMBER SEX AGE ADMIT DISC. XRAY# F/C TYPE CHUYITA TONY [id number] F 59 12/25/24 12/25/24 [id number] MBJ O/P DATE OF : 1965 M/R# [id number] #: [id number] LOCATION: TRANSCRIBED: 12/25/24 13:39 US GALLBLADDER [id number] COMPLETED:12/25/24 12:00 APC [id number] {REASON-US ABD: ABDOMINAL PAIN PHYSICIAN: JOHAN RADIOLOGY [...] gallstones or acute cholecystitis. Hepatic steatosis. F COINS INSPECTOR Reviewed and Electronically Signed by: Ivan Acosta MD Signed Date: 12/25/24 13:39
--- OUTSIDE RECORDS SUMMARY | 2025-02-04 18:00 | XMS_ITS | Clinical Summary ---
Author Organization [facility] Address [address] [place] [address] Care Team Providers Care Nurse Instructor Name Role Phone Reagan Fonseca MD Primary Care Provider [phone] Allergies Active Allergy Reactions Criticality Noted Date [...] CDT - 01/26/2025 8:40 PM CDT Emergency [facility] [address] [place] [address] Bharat Young, Medical Problem Discharge Disposition: Home [...] UNITS ORDERED 1 01/26/2025 4:15 PM CDT [facility] ABO/RH A POSITIVE 01/26/2025 4:15 PM CDT [facility] ANTIBODY SCREEN NEGATIVE 4:15 PM CDT [facility] SAMPLE EXPIRATION 01/29/2025,2359 01/26/2025 4:15 PM CDT [facility] BLOOD UNIT NUMBER [id number] 01/26/2025 5:50 PM CDT [facility] PRODUCT: PC LEUKOPOOR IRRAD 01/26/2025 5:50 PM CDT [facility] UNIT DIVISION 00 01/26/2025 5:50 PM CDT [facility] BLOOD UNIT STATUS TRANSFUSED,FINAL 01/28/2025 5:03 AM CDT [facility] ISSUE DATE/TIME [id number] 025 5:03 AM CDT [facility] PRODUCT CODE [id number] 01/28/2025 5:03 AM CDT [facility] ABO/RH Unit A POS 01/28/2025 5:03 AM CDT [facility] ABO/RH UNIT ISBT CODE 6200 01/28/2025 5:03 AM CDT [facility] BLOOD UNIT EXPIRATION DATE [id number] 01/28/2025 5:03 AM CDT [facility] TRANSFUSION STATUS OK TO TRANSFUSE 01/26/2025 5:50 PM CDT [facility] CROSSMATCH COMPATIBLE 01/26/2025 5:50 PM CDT [facility] 01/26/2025 3:25 PM CDT us Bharat Young DO BLOOD BANK TEST ORDER JOCELYN Final Result [facility] [address] [place] [address], * PROTIME/INR, VENOUS (01/26/2025 3:25 PM CDT) PROTIME 11.9 9.4 - 12.5 SEC 01/26/2025 3:40 PM CDT [facility] INR 1.0 0.8 - 1.0 01/26/2025 3:40 PM CDT [facility] 01/26/2025 3:25 PM CDT Bharat Sinha Hector DO LABORATORY Final Result [facility] [address] [place] [address], * (ABNORMAL) BASIC METABOLIC PANEL (01/26/2025 3:25 PM CDT) SODIUM S/P/B 140 136 - 145 MMOL/L 01/26/2025 3:54 PM CDT [facility] POTASSIUM S/P/B 4.0 3.5 - 5.1 MMOL/L 01/26/2025 3:54 PM CDT [facility] CHLORIDE S/P/B 105 98 - 107 MMOL/L 01/26/2025 3:54 PM CDT [facility] CO2 31.3 21.0 - 32.0 MMOL/L 01/26/2025 3:54 PM CDT [facility] GLUCOSE 99 70 - 99 MG/DL 01/26/2025 3:54 PM CDT [facility] Comment: FASTING GLUCOSE 100 TO 125 MG/DL IS CONSISTENT WITH IMPAIRED FASTING GLUCOSE. FASTING GLUCOSE >125 MG/DL IS CONSISTENT WITH DIABETES. RANDOM GLUCOSE >200 MG/DL WITH HYPERGLYCEMIC SYMPTOMS IS CONSISTENT WITH DIABETES. PER ADA GUIDELINES BUN 6 6 - 24 MG/DL 01/26/2025 3:54 PM CDT [facility] CREATININE S/P/B 0.81 0.55 - 1.02 MG/DL 01/26/2025 3:54 PM CDT [facility] CALCIUM S/P/B 8.8 8.4 - 10.5 MG/DL 01/26/2025 3:54 PM CDT [facility] ANION GAP 3.7(L) 5.0 - 15.0 MMOL/L 01/26/2025 3:54 PM CDT [facility] OSMOLALITY (CALC) 288 MOSM/KG 025 3:54 PM CDT [facility] Comment:REFERENCE RANGE NOT ESTABLISHED GFR ESTIMATE 85(L) >89 ML/MIN/1. 73 M2 01/26/2025 3:54 PM CDT [facility] GFR NOTES GFR REFERENCE S: 01/26/2025 3:54 PM CDT [facility] Comment: THE ESTIMATED GFR IS CALCULATED [...] CDT Bharat Young DO LABORATORY Final Result [facility] [address] [place] [address], * (ABNORMAL) CBC W/DIFF AUTOMATED (01/26/2025 3:25 PM CDT) WBC 1.66(L) 4.00 - 10.80 x10'3/uL 01/26/2025 3:44 PM CDT [facility] RBC 2.08(L) 4.10 - 5.40 x10'6/uL 01/26/2025 3:44 PM CDT [facility] HGB 6.6(LL) 12.0 - 16.0 G/DL 01/26/2025 3:44 PM CDT [facility] Comment: CRITICAL VALUE CALLED TO MARYAM ORDONEZ RN ER AT 1544 BY READ BACK AND VERIFIED HCT 21.1(L) 36.0 - 47.0 % 01/26/2025 3:44 PM CDT [facility] MCV 101.4(H) 78.0 - 100.0 FL 01/26/2025 3:44 PM CDT [facility] MCH 31.7(H) 27.0 - 31.0 PG 01/26/2025 3:44 PM CDT [facility] MCHC 31.3(L) 33.0 - 36.0 G/DL 01/26/2025 3:44 PM CDT [facility] RDW 17.0(H) 11.5 - 14.5 % 01/26/2025 3:44 PM CDT [facility] PLT 29(LL) 150 - 350 x10'3/uL 01/26/2025 3:44 PM CDT [facility] Comment: CRITICAL VALUE CALLED TO MARYAM ORDONEZ RN ERAT 1544 BY READ BACK AND VERIFIED MPV 13.4(H) 7.4 - 10.4 FL 01/26/2025 3:44 PM CDT [facility] CBC COMMENT NORMAL REFERENCE RANGE NOT ESTABLISHED FOR THE PROPORTIONAL LEUKOCYTE DIFFERENTIAL. 01/26/2025 3:44 PM CDT [facility] NEUTROPHILS % 30.8 % 01/26/2025 4:00 PM CDT [facility] LYMPHOCYTES % 57.8 % 01/26/2025 4:00 PM CDT [facility] MONOCYTES % 3.6 % 01/26/2025 4:00 PM CDT [facility] EOSINOPHILS % 4.8 % 01/26/2025 4:00 PM CDT [facility] BASOPHILS % 0.6 % 01/26/2025 4:00 PM CDT [facility] IMMATURE GRANS % 2.4 % 01/27/20 4:00 PM CDT [facility] NRBC % 0.0 % 01/26/2025 4:00 PM CDT [facility] ABS. NEUTROPHILS 0.51(L) 1.60 - 8.30 x10'3/uL 01/26/2025 4:00 PM CDT [facility] ABS. LYMPHOCYTES 0.96 0.80 - 4.70 x10'3/uL 01/26/2025 4:00 PM CDT [facility] ABS. MONOCYTES 0.06 0.00 - 1.50 x10'3/uL 01/26/2025 4:00 PM CDT [facility] ABS. EOSINOPHILS 0.08 0.00 - 0.40 x10'3/uL 01/26/2025 4:00 PM CDT [facility] ABS. BASOPHILS 0.01 0.00 - 0.20 x10'3/uL 01/26/2025 4:00 PM CDT [facility] ABS. IMMATURE GRANULOCYTES 0.04(H) 0.00 - 0.03 x10'3/uL 01/26/2025 4:00 PM CDT [facility] ABS. NUCLEATED RBC'S 0.00 0.00 - 0.01 x10'3/uL 01/26/2025 4:00 PM CDT [facility] PLT MORPH. DECREASED 01/26/2025 4:00 PM CDT [facility] RBC MORPHOLOGY 1+ 01/26/2025 4:00 PM CDT [facility] Comment: HYPOCHROMASIA 2+ ANISOCYTOSIS 2+ POIKILOCYTOSIS 1+ ELLIPTOCYTES 1+ MICROCYTES 01/26/2025 3:25 PM CDT Bharat Young DO LABORATORY Final Result [facility] [address] [place] [address], from Last 3 Months Insurance [employer] Care Teams Nurse Instructor Relationship Specialty Start Date End Date Reagan Fonseca MD [address] [place] [address] PCP - General FAMILY PRACTICE 01/26/25
--- OUTSIDE RECORDS SUMMARY | 2025-02-04 18:00 | XMS_ITS ---
Author Organization Unknown Address [address] [place] [phone] Phone Care Team Providers Care Route Salesman Name Role Phone PIPPA KNOX Attending Unavailable JOHAN SULLIVAN Primary Unavailable Immunization Immunization Date Status Additional Notes Code Code System Tdap 03/26/2021 Completed 115 CVX Results CBC W/ DIFF - Collect Date/T sarah: 01/23/2025 14:13 [facility] ID: [id number] [address] [place] [address], [phone] LOINC: 64016-6 Test Value Unit Reference Range Code Code [...] H=36.0 L PLATELETS 32 10^3uL L=100 H=400 15837-0 LOINC L RDW 17.1 % L=11.7 H=15.5 H %GRAN L=40.0 H=70.0 98970-5 LOINC %LYMPH L=20.0 H=45.0 736-9 LOINC %MONO L=2.0 H=10.0 83833-2 LOINC %EOS L=0.0 H=6.0 713-8 LOINC %BASO L=0.0 H=3.0 706-2 LOINC #NEUT L=1.9 H=7.6 64660-1 LOINC CALLED TO: CHRISTOPH MÁRQUEZ AT: 1448 01/23/25 BY: SDK #LYMPH L=0.9 H=4.9 46482-3 LOINC #MONO L=0.1 H=0.9 46159-5 LOINC #EOS L=0.0 H=0.6 712-0 LOINC #BASO L=0.00 H=0.10 32938-7 LOINC #IM GRANS L=0.0 H=7.0 71848-6 LOINC %IM GRANS L=0.0 H=5.0 57133-8 LOINC %NRB L=0.0 H=0.2 95053-1 LOINC #NRB L=0.000 H=0.012 06785-8 LOINC MANUAL DIFF SEE BELOW A SEG [...] L=0 H=0 BLASTS 0 % L=0 H=0 25150-1 LOINC PANDA LYMPHS 10.00 % L=0.00 H=5.00 H SMUDGE CELLS 0 % L=0 H=0 NRBC 0.0 % L=0.0 H=0.0 PLTS DECREASED NEUT # 0.6 10^3uL L=1.9 H=7.6 LL LYMPH # 1.0 10^3uL L=0.9 H=4.9 MONO # 0.1 10^3uL L=0.1 H=0.9 EOS # 0.1 10^3uL L=0.0 H=0.6 712-0 LOINC BASO # 0.0 10^3uL L=0.0 H=0.1 90893-7 LOINC RBC MORPH NOT INDICATED COMPREHENSIVE METABOLIC PANE L - Collect Date/Time: 01/23/2025 14:13 [facility] ID: [id number] [address] [place], [place], [id number] LOINC: 23833-9 Test Value Unit Reference Range Code Code [...] 2028-9 LOINC ANION GAP 9 L=10 H=20 81175-9 LOINC L OSMOLALITY 291 mOs/kG L=280 H=296 25373-6 LOINC BUN/CREAT 13.8 3097-3 LOINC CALCIUM 8.7 mg/dL L=8.3 H=10.5 28510-7 LOINC AST 20 U/L L=15 H=46 1920-8 LOINC ALT 12 U/L L=9 H=72 1742-6 LOINC ALKALINE PHOS 71 U/L L=38 H=126 6768-6 LOINC TOTAL BILI 0.2 mg/dL L=0.2 H=1.3 1975-2 LOINC ALBUMIN 3.7 G/dL L=3.5 H=5.0 1751-7 LOINC TOTAL PROTEIN 6.8 g/L L=6.3 H=8.2 2885-2 LOINC A/G RATIO 1.2 46071-6 LOINC AGE 59 08425-0 LOINC eGFR NON-AFR 79 ml/min eGFR AFR AMER 96 ml/min BB ABO AND RH TYPE - Collect Date/Time: 01/23/2025 14:13 [facility] ID: [id number] [address] [place], [place], [id number] LOINC: 99946-3 Test Value Unit Reference Range Code Code System Flag ABO TYPE A 883-9 LOINC RH TYPE POSITIVE BB RETYPE ABO AND RH TYPE - Collect Date/Time: 01/23/2025 14:13 [facility] ID: [id number] [address] [place], [place], [phone] LOINC: 37567-5 Test Value Unit Reference Range Code Code System Flag ABO TYPE A 883-9 LOINC RH TYPE POSITIVE Social History Type Status Start Date End Date Code Code Syst em Smoking History Unknown if ever smoked [address] Sex Female Hospital Discharge Instructions [...]
--- OUTSIDE RECORDS SUMMARY | 2025-02-04 18:00 | XMS_ITS | Encounter Summary ---
Author Organization [facility] Address [address] [place] [id number] Care Team Providers Care Cell Tower Climber Name Role Phone Reagan Fonseca MD Primary Care Provider [phone] Encounter Details Date Type Department Care Team (Late st Contact Info) Description 02/24/2019 Abstract [facility]FL CONVERSION [address] [place] [address] , Generic Conversion, Social History Tobacco Use [...] on filedocumented in this encounter Care Teams Cell Tower Climber Relationship Specialty Start Date End Date Reagan Fonseca MD [address] [place] [address] PCP - General FAMILY PRACTICE 01/26/25 documented as of this encounter
--- OUTSIDE RECORDS SUMMARY | 2025-02-04 18:00 | XMS_ITS ---
Author Organization Unknown Address [address] [place] [phone] Phone Care Team Providers Care Project Finance Analyst Name Role Phone JOHAN SULLIVAN Attending Unavailable Immunization Immunization Date Status Additional Notes Code Code System Tdap 03/26/2021 Completed 115 CVX Results CBC W/ DIFF - Collect Date/T sarah: 01/08/2025 13:23 [facility] ID: [id number] [address] [place] [address], [id number] LOINC: 98934-4 Test Value Unit Reference Range Code Code [...] H=36.0 L PLATELETS 43 10^3uL L=100 H=400 76309-0 LOINC L RDW 16.1 % L=11.7 H=15.5 H %GRAN L=40.0 H=70.0 26574-3 LOINC %LYMPH L=20.0 H=45.0 736-9 LOINC %MONO L=2.0 H=10.0 02863-4 LOINC %EOS L=0.0 H=6.0 713-8 LOINC %BASO L=0.0 H=3.0 706-2 LOINC #NEUT L=1.9 H=7.6 32412-2 LOINC #LYMPH L=0.9 H=4.9 16935-6 LOINC #MONO L=0.1 H=0.9 65558-3 LOINC #EOS L=0.0 H=0.6 712-0 LOINC #BASO L=0.00 H=0.10 05100-5 LOINC #IM GRANS L=0.0 H=7.0 82394-4 LOINC %IM GRANS L=0.0 H=5.0 24085-7 LOINC %NRB L=0.0 H=0.2 48187-4 LOINC #NRB L=0.000 H=0.012 19852-5 LOINC MANUAL DIFF SEE BELOW A SEG [...] L=0 H=0 BLASTS 0 % L=0 H=0 69683-2 LOINC PANDA LYMPHS 0.00 % L=0.00 H=5.00 SMUDGE CELLS 0 % L=0 H=0 NRBC 0.0 % L=0.0 H=0.0 PLTS DECREASED NEUT # 0.7 10^3uL L=1.9 H=7.6 LL LYMPH # 1.2 10^3uL L=0.9 H=4.9 MONO # 0.0 10^3uL L=0.1 H=0.9 L EOS # 0.1 10^3uL L=0.0 H=0.6 712-0 LOINC BASO # 0.0 10^3uL L=0.0 H=0.1 81209-8 LOINC RBC MORPH NOT INDICATED COMPREHENSIVE METABOLIC PANE L - Collect Date/Time: 01/08/2025 13:23 [facility] ID: [id number] [address] [place], [place], [phone] LOINC: 80430-3 Test Value Unit Reference Range Code Code [...] 2028-9 LOINC ANION GAP 10 L=10 H=20 68517-3 LOINC OSMOLALITY 288 mOs/kG L=280 H=296 89295-6 LOINC BUN/CREAT 13.3 3097-3 LOINC CALCIUM 8.9 mg/dL L=8.3 H=10.5 69419-6 LOINC AST 23 U/L L=15 H=46 1920-8 LOINC ALT 15 U/L L=9 H=72 1742-6 LOINC ALKALINE PHOS 61 U/L L=38 H=126 6768-6 LOINC TOTAL BILI 0.3 mg/dL L=0.2 H=1.3 1975-2 LOINC ALBUMIN 3.9 G/dL L=3.5 H=5.0 1751-7 LOINC TOTAL PROTEIN 7.6 g/L L=6.3 H=8.2 2885-2 LOINC A/G RATIO 1.1 54121-7 LOINC AGE 59 50415-9 LOINC eGFR NON-AFR 69 ml/min eGFR AFR AMER 83 ml/min Social History Type Status Start Date End Date Code Code Syst em Smoking History Unknown if ever smoked [address] Sex Female Hospital Discharge Instructions [...]
--- OUTSIDE RECORDS SUMMARY | 2025-02-04 18:00 | XMS_ITS | Encounter Summary ---
Author Organization [facility] Address [address] [place] [address] Care Team Providers Care Drafter Castings Name Role Phone Reagan Fonseca MD Primary Care Provider [phone] Encounter Details Date Type Department Care Team (Late st Contact Info) Description 12/03/2017 Abstract [facility] CONVERSION [address] [place] [address] , Generic Conversion, Social History Tobacco Use [...] on filedocumented in this encounter Care Teams Drafter Castings Relationship Specialty Start Date End Date Reagan Fonseca MD [address] [place] [address] PCP - General FAMILY PRACTICE 01/26/25 documented as of this encounter
--- OUTSIDE RECORDS SUMMARY | 2025-02-04 18:00 | XMS_ITS | Continuity of Care Document ---
Author Organization [facility] Address [address] [place] [address] Phone Care Team Providers Care Wash Worker Name Role Phone Yohana Ray PT Unavailable Unavailable Procedures Procedure Date PT Evaluation Moderate Complexity Therapeutic Activities Neuromuscular Re-Ed Manual Therapy Advance Directives Directive Yes / No Effective Date File Name No Information Encounters Encounter Description Practice Location Reason(s) For Visit Diagnoses Date Provider Providers Copied on Encounter [facility], [address], [place], [place], [id number], tel:[phone] [place] No Information Flor Muller. . [facility], [facility] [address], [place], [place], [id number], tel:[phone] [place] No Information Flor Muller. . Family History Family Member Type Diagnosis Age At Onset No Information Payers Payer name Insurance type Covered constitution party ID Authoriza tion(s) [employer] Medicare Replacement 16 [id number] Medicaid OON Write Off CI 00 Social [...]
--- OUTSIDE RECORDS SUMMARY | 2025-02-04 18:01 | XMS_ITS ---
Author Organization Unknown Address [address] [place] [phone] Phone Care Team Providers Care Mortgage Accounting Clerk Name Role Phone PIPPA GREGORIONISHA Attending Unavailable JOHAN SULLIVAN Primary Unavailable Immunization Immunization Date Status Additional Notes Code Code System Tdap 03/26/2021 Completed 115 CVX Social History Type Status Start Date End Date Code Code Syst em Smoking History Unknown if ever smoked [address] Sex Female Vital Signs Vital Sign Value Unit Banks Value Banks Unit Date/Time Recent/Initial? Code Code System Body Mass Index 34.97 kg/m2 02/04/2025 09:56 Initial 05250 -5 [facility] Systolic Blood Pressure 168 mm[Hg] 02/04/2025 09:53 Initial 8480- 6 LOINC Diastolic Blood Pressure 73 mm[Hg] 02/04/2025 09:53 Initial 8462- 4 INC Body Surface Area 2.24 m2 02/04/2025 09:56 Initial 3140- 1 LOINC Height 172.720 0 cm 68.00 in 02/04/2025 09:56 Initial 8302- 2 LOINC O2 Saturation 100 % 2024 09:53 Initial 40981 -5 LOINC Pulse 99.0 /min 02/04/2025 09:53 Initial 8867- 4 LOINC Respiration 22 /min 02/05/20 09:53 Initial 9279- 1 LOINC Temperature 36.3 Rfeda 97.3 F 02/05/20 09:53 Initial 8310- 5 LOINC Weight 104.33 kg 230.00 lbs 02/04/2025 09:56 Initial 51690 -7 INC Hospital Discharge Instructions Should you [...]
--- OUTSIDE RECORDS SUMMARY | 2025-02-04 18:01 | XMS_ITS ---
Author Organization Unknown Address [address] [place] [phone] Phone Care Team Providers Care Journeyman Apprentice Electricians Name Role Phone JOHAN SLULIVAN Attending Unavailable Immunization Immunization Date Status Additional Notes Code Code System Tdap 03/26/2021 Completed 115 CVX Results US GALLBLADDER - Completed: 12/25/2024 12:00 LOINC: \TM00\12PI\DRAo\BM09\ \MRHo\ [address] [address] ---------NAME--------- NUMBER SEX AGE ADMIT DISC. XRAY# F/C TYPE CHUYITA TONY [id number] F 59 12/25/24 12/25/24 56062 MBJ O/P DATE OF : 1965 M/R# [id number] PH#: [phone] RM \MRHx\ LOCATION: TRANSCRIBED: 12/25/24 13:39 US GALLBLADDER 13663 COMPLETED:12/25/24 12:00 APC 60437 {REASON-US ABD: ABDOMINAL PAIN PHYSICIAN: JOHAN R [...] of gallstones or acute cholecystitis. Hepatic steatosis. STICKER \ITLo\ \UNDo\ \UNDx\ \ITLx\ Reviewed and Electronically Signed by: Ivan Acosta MD Signed Date: 12/25/24 13:39 Social History Type Status Start Date End Date Code Code Syst em Smoking History Unknown if ever smoked [address] Sex Female Hospital Discharge Instructions [...] - Primary care physician Imaging Narrative Notes [facility] 12/25/2024 13:[address] [address] ---------NAME--------- NUMBER SEX AGE ADMIT DISC. XRAY# F/C TYPE CHUYITA TONY [id number] F 59 12/25/24 12/25/24 43331 MBJ O/P DATE OF : 1965 M/R# [id number] #: [id number] LOCATION: TRANSCRIBED: 12/25/24 13:39 US GALLBLADDER 13988 COMPLETED:12/25/24 12:00 APC 78041 {REASON-US ABD: ABDOMINAL PAIN PHYSICIAN: JOHAN RADIOLOGY [...] of gallstones or acute cholecystitis. Hepatic steatosis. STICKER Reviewed and Electronically Signed by: Ivan Acosta MD Signed Date: 12/25/24 13:39
--- NOTE | 2025-02-04 18:25 | ED.GENADULT ---
HPI - General Adult General Chief complaint: Recheck/Abnormal Lab/Rx Stated complaint: lab check Source: patient Mode of arrival: ambulatory Limitations: no limitations History of Present Illness HPI narrative: 59-year-old white female history of aplastic anemia comes to the emergency room to get her CBC and CMP be done because her insurance will pay for as an outpatient. She last had a blood transfusion January 26 and supposed to get blood labs done on Mondays and for Dr. Mar her oncologist. She is eating and drinking voiding and stooling fine without any bleeding. She has got some bruising her arms. She has got a PICC line in her right arm which is little sore. Denies any cough fever sore throat runny nose other swelling lumps or bumps dizziness or lightheadedness problems walking talking seeing or hearing or any other complaints. Related Data Home Medications Medication Instructions Recorded Confirmed Last Taken Type albuterol sulfate 90 mcg/actuation 90 mcg inhalation Q6H PRN SOB 05/24/24 05/24/24 Unknown History aerosol inhaler omeprazole 40 mg capsule,delayed 40 mg PO DAILY 05/24/24 05/24/24 Unknown History release alprazolam 0.25 mg tablet 0.25 mg PO DAILY PRN anxiety 02/04/25 Unknown History escitalopram oxalate 10 mg tablet 10 mg PO DAILY 02/04/25 Unknown History levofloxacin 500 mg tablet 500 mg PO Q24H 02/04/25 Unknown History lorazepam 0.5 mg tablet 0.5 mg PO BID PRN anxiety 02/04/25 Unknown History oxycodone 5 mg tablet 5 mg PO Q6H PRN pain 02/04/25 Unknown History trazodone 100 mg tablet 100 mg PO HS 02/04/25 Unknown History Allergies Allergy/AdvReac Type Severity Reaction Status Date / Time Penicillins Allergy Hives Verified 01/29/25 22:54 codeine AdvReac Nausea Verified 01/29/25 22:54 Review of Systems Review of Systems: All systems reviewed & are unremarkable except as noted in HPI and below PMFSH Past Medical History Medical History Abdominal pain Bronchitis COPD (chronic obstructive pulmonary disease) Type 2 diabetes mellitus Social History Social History Smoking packs per day: 1.5 Smoking cigarettes per day: 30.0 Years smoked: 35 Smoking pack-years: 52.50 Smoking status: Current every day smoker Tobacco type: cigarettes Second hand tobacco smoke exposure: Yes Alcohol intake: never Substance use: never Substance use type: does not use Do You Feel Safe in your Home?: Yes Lack of Transportation: No Lack of Food: Never True Current Housing: I Have Housing Concerned About Future Housing: No Difficulty Paying Gas/Electric Bills: No Difficulty Paying for Meds: No Currently Unemployed: No Education: Grade School Difficulty w/ Childcare or Family Care: No Living arrangements: with family Spiritual care concerns: No Exam Narrative: White female patient with no apparent distress. Head normocephalic, atraumatic. Eyes conjunctiva pale,sclera nonicteric. Extraocular movements are intact. Ears externally normal. Oropharynx is clear with moist mucous membranes without exudates. Neck is supple nontender no lymphadenopathy. Back is nontender. Lungs are clear. Heart is regular rate and rhythm without murmurs gallops or rubs. Chest wall nontender. Back is nontender. Abdomen is soft and nontender no hepatosplenomegaly or masses no CVA tenderness no abdominal bruits. Extremities no cyanosis clubbing or edema. capillary refills normal. Skin is warm and dry without rashes or lesions. She does have some bruises on left dorsum of her forearm. She has a PICC line in right upper extremity is mildly tender and mildly erythematous. Neurological patient is alert and oriented x4. Motor and sensory grossly intact. Gait is normal. Course Vital Signs Vital signs: Vital Signs Temperature 36.9 C 02/04/25 17:35 Pulse Rate 92 02/04/25 17:35 Respiratory Rate 18 02/04/25 17:35 Blood Pressure 149/67 H 02/04/25 17:35 Pulse Oximetry 97 02/04/25 17:35 Oxygen Delivery Room Air 02/04/25 17:35 Temperature 36.9 C 02/04/25 17:35 Pulse Rate 92 02/04/25 17:35 Respiratory Rate 18 02/04/25 17:35 Blood Pressure 149/67 H 02/04/25 17:35 Pulse Oximetry 97 02/04/25 17:35 Oxygen Delivery Room Air 02/04/25 17:35 Medical Decision Making MDM Narrative Medical decision making narrative: Patient was placed in Room # 3 History and physical was performed. WBCs 1.9 H&H 7.3 in 23.1 on 01/31/2025 AGH was 7.5 in 24 platelets are 35 Osmo 384 calcium 8.2 rest of CMP was normal Independent Historian: patient External Source Review: Differential Dx includes but not limited to: anemia thrombocytopenia leukopenia Medications were Reviewed: Independently Interpreted by me: labs independently interpreted by me. Meds, treatment, ED course: Social Situation Impacting Patients Care: Shared decision Making: Evaluation was discussed all questions were asked and answered and patient agreed with the plan. She would follow up with her primary care and oncologist. Discussed with Dr. SAGASTUME DIAGNOSIS: Aplastic anemia DISPOSITION: discharge home CONDITION AT DISCHARGE: stable Vital Signs Vital Signs: Vital Signs Temperature 36.9 C 02/04/25 17:35 Pulse Rate 92 02/04/25 17:35 Respiratory Rate 18 02/04/25 17:35 Blood Pressure 149/67 H 02/04/25 17:35 Pulse Oximetry 97 02/04/25 17:35 Oxygen Delivery Room Air 02/04/25 17:35 Temperature 36.9 C 02/04/25 17:35 Pulse Rate 92 02/04/25 17:35 Respiratory Rate 18 02/04/25 17:35 Blood Pressure 149/67 H 02/04/25 17:35 Pulse Oximetry 97 02/04/25 17:35 Oxygen Delivery Room Air 02/04/25 17:35 Lab Data 02/04/25 19:18 02/04/25 19:18 Labs: Lab Results 02/04/25 Range/Units 19:18 WBC 1.9 L (4.8-10.8) K/mm3 RBC 2.35 L (4.20-5.40) M/mm3 Hgb 7.3 L (12.0-15.0) g/dL Hct 23.1 L (35.0-49.0) % MCV 98.3 (78.0-102.0) fL MCH 31.1 H (27.0-31.0) pg MCHC 31.6 L (32-36) g/dL RDW 18.0 H (11.6-14.4) % Plt Count 35 L (150-420) K/mm3 MPV 13.1 H (9.2-11.8) fl % Immature Plt Fraction 8.7 H (1.0-7.0) % Sodium 138 (137-145) mmol/L Potassium 3.7 (3.4-5.0) mmol/L Chloride 105 (98-107) mmol/L Carbon Dioxide 29 (22-30) mmol/L Anion Gap 4 (4-12) mmol/L BUN 9 (7-17) mg/dL Creatinine 0.72 (0.7-1.0) mg/dL Estim Creat Clear Calc 89 ml/min Estimated GFR > 60 (59 - ) Glucose 98 (65-110) mg/dL Calculated Osmolality 284 L (285-295) mOsm/kg Calcium 8.2 L (8.4-10.2) mg/dL Total Bilirubin 0.4 (0.2-1.3) mg/dL AST 20 (14-36) U/L ALT 10 (6-35) U/L Alkaline Phosphatase 67 (38-126) U/L Total Protein 6.8 (6.3-8.2) g/dL Albumin 3.6 (3.5-5.1) g/dL Discharge Plan Discharge Clinical Impression: Aplastic anemia, Encounter for medical screening examination Patient Disposition: Home Condition: Stable Instructions: Aplastic Anemia (DC) Additional Instructions: follow-up with your oncologist and primary care provider return if you get worse or develops any new symptoms. Patient Language: Greenlandic Prescriptions: No Action doxycycline hyclate 100 mg capsule 100 mg PO BID 10 Days Qty: 20 0RF alprazolam 0.25 mg tablet 0.25 mg PO DAILY PRN (Reason: anxiety) escitalopram oxalate 10 mg tablet 10 mg PO DAILY levofloxacin 500 mg tablet 500 mg PO Q24H lorazepam 0.5 mg tablet 0.5 mg PO BID PRN (Reason: anxiety) oxycodone 5 mg tablet 5 mg PO Q6H PRN (Reason: pain) trazodone 100 mg tablet 100 mg PO HS omeprazole 40 mg capsule,delayed release(DR/EC) 40 mg PO DAILY albuterol sulfate 90 mcg/actuation HFA aerosol inhaler 90 mcg INHALATION Q6H PRN (Reason: SOB) fexofenadine [Allergy Relief (fexofenadine)] 60 mg tablet 60 mg PO Q12H Qty: 60 2RF (DME) nebulizers [MC 300 Nebulizer w-Mouthpiece] Misc See Rx Instructions .Route Qty: 1 0RF Rx Instructions: As directed (DME) nebulizer accessories Kit See Rx Instructions .Route Qty: 1 0RF Rx Instructions: As directed Follow-up/Referrals: Reagan Fonseca MD [Primary Care Provider] - Time of Disposition: 21:03
[2025-02-04 19:23] LABS: Hematocrit 23.1 % (35.0-49.0); Hemoglobin 7.3 g/dL (12.0-15.0); Immature Platelet Fraction Pct 8.7 % (1.0-7.0); Mean Corpuscular HGB Conc 31.6 g/dL (32-36); Mean Corpuscular Hemoglobin 31.1 pg (27.0-31.0); Mean Corpuscular Volume 98.3 fL (78.0-102.0); Mean Platelet Volume 13.1 fl (9.2-11.8); Platelet Count Result 35 K/mm3 (150-420); Red Blood Count 2.35 M/mm3 (4.20-5.40); White Blood Count 1.9 K/mm3 (4.8-10.8)
--- NOTE | 2025-02-04 19:25 | PC.NURSE ---
Report received, pt resting w/ daughter at bedside. She has no c/o at this time. Pt given soda to drink, updated pt on wait time for labs.
[2025-02-04 19:30] VITALS: BP 140/85; PULSE 80; RESP 18; O2SAT 97
[2025-02-04 19:35] LABS: Alanine Aminotransferase 10 U/L (6-35); Albumin Level 3.6 g/dL (3.5-5.1); Alkaline Phosphatase 67 U/L (38-126); Anion Gap 4 mmol/L (4-12); Aspartate Amino Transferase 20 U/L (14-36); Bilirubin,Total 0.4 mg/dL (0.2-1.3); Blood Urea Nitrogen 9 mg/dL (7-17); Calcium 8.2 mg/dL (8.4-10.2); Carbon Dioxide 29 mmol/L (22-30); Chloride 105 mmol/L (98-107); Estimated CRCL calculation 89 ml/min; Estimated Glomerular Filt Rate > 60; Glucose 98 mg/dL (65-110); Osmolality Calculated 284 mOsm/kg (285-295); Potassium 3.7 mmol/L (3.4-5.0); Sodium 138 mmol/L (137-145); Total Protein 6.8 g/dL (6.3-8.2)
[2025-02-04 21:10] VITALS: BP 135/65; PULSE 80; RESP 18; TEMP 36.6; O2SAT 96
== END 2025-02-04 21:10 | disposition home or self-care (01) ==
PROVIDERS: Emergency Provider Emergency Medicine; PCP Family Medicine
DX: D61.9 Aplastic anemia, unspecified (principal); E11.9 Type 2 diabetes mellitus without complications; J44.9 Chronic obstructive pulmonary disease, unspecified
CPT/HCPCS: 36415; 80053; 85027; 85055; 99283

== ENCOUNTER 2025-02-12 20:23 | Emergency (ER) | payer OTHER, SELFPAY ==
[2025-02-12 20:23] VITALS: BP 151/81; PULSE 98; RESP 18; TEMP 37.1; O2SAT 97
--- OUTSIDE RECORDS SUMMARY | 2025-02-12 20:26 | XMS_ITS ---
Author Organization Unknown Address [address] [place] [phone] Phone Care Team Providers Care Job Training Specialist Name Role Phone PIPPA GREGORIONISHA Attending Unavailable JOHAN SULLIVAN Primary Unavailable Immunization Immunization Date Status Additional Notes Code Code System Tdap 03/26/2021 Completed 115 CVX Social History Type Status Start Date End Date Code Code Syst em Smoking History Unknown if ever smoked [address] Sex Female Vital Signs Vital Sign Value Unit Norman Value Norman Unit Date/Time Recent/Initial? Code Code System Body Mass Index 34.97 kg/m2 02/04/2025 09:56 Initial 89756 -5 [facility] Systolic Blood Pressure 168 mm[Hg] 02/04/2025 09:53 Initial 8480- 6 LOINC Diastolic Blood Pressure 73 mm[Hg] 02/04/2025 09:53 Initial 8462- 4 INC Body Surface Area 2.24 m2 02/04/2025 09:56 Initial 3140- 1 LOINC Height 172.720 0 cm 68.00 in 02/04/2025 09:56 Initial 8302- 2 LOINC O2 Saturation 100 % 2024 09:53 Initial 06115 -5 LOINC Pulse 99.0 /min 02/04/2025 09:53 Initial 8867- 4 LOINC Respiration 22 /min 02/05/20 09:53 Initial 9279- 1 LOINC Temperature 36.3 Freda 97.3 F 02/05/20 09:53 Initial 8310- 5 LOINC Weight 104.33 kg 230.00 lbs 02/04/2025 09:56 Initial 99326 -7 INC Hospital Discharge Instructions Should you have any questions prior to discharge, please contact a member of your healthcare team. If you have left the hospital and have any questions, please contact your primary care physician. Reason For Referral No Data Found Plan of Treatment No Data Found Encounters Encounter Diagnosis Start Date Code Code Sys tem Myelodysplastic syndrome, unspecified 02/04/2025 SNOMED-CT Personal Care Team Section Performer Name Performer Role Active Date Inactive LAURIE Hidalgo PCP - Primary care physician
--- OUTSIDE RECORDS SUMMARY | 2025-02-12 20:26 | XMS_ITS ---
Author Organization Unknown Address [address] [place] [phone] Phone Care Team Providers Care Machine Turner Name Role Phone JOHAN SULLIVAN Attending Unavailable Immunization Immunization Date Status Additional Notes Code Code System Tdap 03/26/2021 Completed 115 CVX Results US GALLBLADDER - Completed: 12/25/2024 12:00 LOINC: \TM00\\12PI\\DRAo\\BM09\ \MRHo\ [address] [address] ---------NAME--------- NUMBER SEX AGE ADMIT DISC. XRAY# F/C TYPE CHUYITA TONY [id number] F 59 12/25/24 12/25/24 23103 MBJ O/P DATE OF : 1965 M/R# [id number] PH#: [phone] RM \MRHx\ LOCATION: TRANSCRIBED: 12/25/24 13:39 US GALLBLADDER [id number] COMPLETED:12/25/24 12:00 APC 40301 {REASON-US ABD: ABDOMINAL PAIN PHYSICIAN: JOHAN R [...] of gallstones or acute cholecystitis. Hepatic steatosis. TECHNICIAN \ITLo\ \UNDo\ \UNDx\ \ITLx\ Reviewed and Electronically Signed by: Ivan Acosta MD Signed Date: 12/25/24 13:39 Social History Type Status Start Date End Date Code Code Syst em Smoking History Unknown if ever smoked [address] Sex Female Hospital Discharge Instructions [...] - Primary care physician Imaging Narrative Notes [facility] 12/25/2024 13:[address] [address] ---------NAME--------- NUMBER SEX AGE ADMIT DISC. XRAY# F/C TYPE CHUYITA TONY [id number] F 59 12/25/24 12/25/24 32470 MBJ O/P DATE OF : 1965 M/R# [id number] #: [id number] LOCATION: TRANSCRIBED: 12/25/24 13:39 US GALLBLADDER [id number] COMPLETED:12/25/24 12:00 APC 48439 {REASON-US ABD: ABDOMINAL PAIN PHYSICIAN: JOHAN RADIOLOGY [...] of gallstones or acute cholecystitis. Hepatic steatosis. TECHNICIAN Reviewed and Electronically Signed by: Ivan Acosta MD Signed Date: 12/25/24 13:39
--- OUTSIDE RECORDS SUMMARY | 2025-02-12 20:26 | XMS_ITS ---
Author Organization Unknown Address [address] [place] [phone] Phone Care Team Providers Care Wire Temperer Name Role Phone PIPPA BURCIAGAWade Attending Unavailable JOHAN SULLIVAN Primary Unavailable Immunization Immunization Date Status Additional Notes Code Code System Tdap 03/26/2021 Completed 115 CVX Results CBC W/ DIFF - Collect Date/T sarah: 01/23/2025 14:13 [facility] ID: [id number] [address] [place] [address], [phone] LOINC: 30777-8 Test Value Unit Reference Range Code Code [...] H=36.0 L PLATELETS 32 10^3uL L=100 H=400 68428-4 LOINC L RDW 17.1 % L=11.7 H=15.5 H %GRAN L=40.0 H=70.0 98385-9 LOINC %LYMPH L=20.0 H=45.0 736-9 LOINC %MONO L=2.0 H=10.0 43790-9 LOINC %EOS L=0.0 H=6.0 713-8 LOINC %BASO L=0.0 H=3.0 706-2 LOINC #NEUT L=1.9 H=7.6 06348-5 LOINC CALLED TO: CHRISTOPH BillingsleyHONORIO AT: 1448 01/23/25 BY: SDK #LYMPH L=0.9 H=4.9 28439-7 LOINC #MONO L=0.1 H=0.9 47949-5 LOINC #EOS L=0.0 H=0.6 712-0 LOINC #BASO L=0.00 H=0.10 47222-7 LOINC #IM GRANS L=0.0 H=7.0 05526-7 LOINC %IM GRANS L=0.0 H=5.0 26504-3 LOINC %NRB L=0.0 H=0.2 54371-4 LOINC #NRB L=0.000 H=0.012 00018-1 LOINC MANUAL DIFF SEE BELOW A SEG [...] L=0 H=0 BLASTS 0 % L=0 H=0 46278-5 LOINC PANDA LYMPHS 10.00 % L=0.00 H=5.00 H SMUDGE CELLS 0 % L=0 H=0 NRBC 0.0 % L=0.0 H=0.0 PLTS DECREASED NEUT # 0.6 10^3uL L=1.9 H=7.6 LL LYMPH # 1.0 10^3uL L=0.9 H=4.9 MONO # 0.1 10^3uL L=0.1 H=0.9 EOS # 0.1 10^3uL L=0.0 H=0.6 712-0 LOINC BASO # 0.0 10^3uL L=0.0 H=0.1 97479-1 LOINC RBC MORPH NOT INDICATED COMPREHENSIVE METABOLIC PANE L - Collect Date/Time: 01/23/2025 14:13 [facility] ID: [id number] [address] [place], [place], [id number] LOINC: 26258-6 Test Value Unit Reference Range Code Code [...] 2028-9 LOINC ANION GAP 9 L=10 H=20 05318-6 LOINC L OSMOLALITY 291 mOs/kG L=280 H=296 24334-2 LOINC BUN/CREAT 13.8 3097-3 LOINC CALCIUM 8.7 mg/dL L=8.3 H=10.5 50965-3 LOINC AST 20 U/L L=15 H=46 1920-8 LOINC ALT 12 U/L L=9 H=72 1742-6 LOINC ALKALINE PHOS 71 U/L L=38 H=126 6768-6 LOINC TOTAL BILI 0.2 mg/dL L=0.2 H=1.3 1975-2 LOINC ALBUMIN 3.7 G/dL L=3.5 H=5.0 1751-7 LOINC TOTAL PROTEIN 6.8 g/L L=6.3 H=8.2 2885-2 LOINC A/G RATIO 1.2 82191-9 LOINC AGE 59 75079-6 LOINC eGFR NON-AFR 79 ml/min eGFR AFR AMER 96 ml/min BB ABO AND RH TYPE - Collect Date/Time: 01/23/2025 14:13 [facility] ID: [id number] [address] [place], [place], [phone] LOINC: 36278-8 Test Value Unit Reference Range Code Code System Flag ABO TYPE A 883-9 LOINC RH TYPE POSITIVE BB RETYPE ABO AND RH TYPE - Collect Date/Time: 01/23/2025 14:13 [facility] ID: [id number] [address] [place], [place], [phone] LOINC: 53551-4 Test Value Unit Reference Range Code Code System Flag ABO TYPE A 883-9 LOINC RH TYPE POSITIVE Social History Type Status Start Date End Date Code Code Syst em Smoking History Unknown if ever smoked [address] Sex Female Hospital Discharge Instructions [...]
--- OUTSIDE RECORDS SUMMARY | 2025-02-12 20:26 | XMS_ITS | Continuity of Care Document ---
Author Organization [facility] Address [address] [place] [address] Phone Care Team Providers Care Contract Runner Name Role Phone Yohana Ray PT Unavailable Unavailable Procedures Procedure Date PT Evaluation Moderate Complexity Therapeutic Activities Neuromuscular Re-Ed Manual Therapy Advance Directives Directive Yes / No Effective Date File Name No Information Encounters Encounter Description Practice Location Reason(s) For Visit Diagnoses Date Provider Providers Copied on Encounter [facility], [address], [place], [place], [id number], tel:[phone] [place] No Information Flor Muller. . [facility], [facility]note 2[facility] [address], [place], [place], [address], tel:[phone] [place] No Information Flor Muller. . Family History Family Member Type Diagnosis Age At Onset No Information Payers Payer name Insurance type Covered democrat ID Authoriza tion(s) [employer] Medicare Replacement 16 [id number] Medicaid OON Write Off CI 00 Social [...]
--- OUTSIDE RECORDS SUMMARY | 2025-02-12 20:26 | XMS_ITS ---
Author Organization Unknown Address [address] [place] [phone] Phone Care Team Providers Care Ophthalmic Surgical Assistant Name Role Phone JOHAN SULLIVAN Attending Unavailable Immunization Immunization Date Status Additional Notes Code Code System Tdap 03/26/2021 Completed 115 CVX Results CBC W/ DIFF - Collect Date/T sarah: 01/08/2025 13:23 [facility] ID: [id number] [address] [place] [address], [id number] LOINC: 05337-8 Test Value Unit Reference Range Code Code [...] H=36.0 L PLATELETS 43 10^3uL L=100 H=400 87123-2 LOINC L RDW 16.1 % L=11.7 H=15.5 H %GRAN L=40.0 H=70.0 20746-2 LOINC %LYMPH L=20.0 H=45.0 736-9 LOINC %MONO L=2.0 H=10.0 20424-4 LOINC %EOS L=0.0 H=6.0 713-8 LOINC %BASO L=0.0 H=3.0 706-2 LOINC #NEUT L=1.9 H=7.6 94937-7 LOINC #LYMPH L=0.9 H=4.9 78274-2 LOINC #MONO L=0.1 H=0.9 96666-6 LOINC #EOS L=0.0 H=0.6 712-0 LOINC #BASO L=0.00 H=0.10 59867-7 LOINC #IM GRANS L=0.0 H=7.0 67678-1 LOINC %IM GRANS L=0.0 H=5.0 41503-8 LOINC %NRB L=0.0 H=0.2 99245-1 LOINC #NRB L=0.000 H=0.012 10026-3 LOINC MANUAL DIFF SEE BELOW A SEG [...] L=0 H=0 BLASTS 0 % L=0 H=0 02627-8 LOINC PANDA LYMPHS 0.00 % L=0.00 H=5.00 SMUDGE CELLS 0 % L=0 H=0 NRBC 0.0 % L=0.0 H=0.0 PLTS DECREASED NEUT # 0.7 10^3uL L=1.9 H=7.6 LL LYMPH # 1.2 10^3uL L=0.9 H=4.9 MONO # 0.0 10^3uL L=0.1 H=0.9 L EOS # 0.1 10^3uL L=0.0 H=0.6 712-0 LOINC BASO # 0.0 10^3uL L=0.0 H=0.1 46135-6 LOINC RBC MORPH NOT INDICATED COMPREHENSIVE METABOLIC PANE L - Collect Date/Time: 01/08/2025 13:23 [facility] ID: [id number] [address] [place], [place], [phone] LOINC: 31529-1 Test Value Unit Reference Range Code Code [...] 2028-9 LOINC ANION GAP 10 L=10 H=20 09232-9 LOINC OSMOLALITY 288 mOs/kG L=280 H=296 07447-8 LOINC BUN/CREAT 13.3 3097-3 LOINC CALCIUM 8.9 mg/dL L=8.3 H=10.5 69816-0 LOINC AST 23 U/L L=15 H=46 1920-8 LOINC ALT 15 U/L L=9 H=72 1742-6 LOINC ALKALINE PHOS 61 U/L L=38 H=126 6768-6 LOINC TOTAL BILI 0.3 mg/dL L=0.2 H=1.3 1975-2 LOINC ALBUMIN 3.9 G/dL L=3.5 H=5.0 1751-7 LOINC TOTAL PROTEIN 7.6 g/L L=6.3 H=8.2 2885-2 LOINC A/G RATIO 1.1 38006-9 LOINC AGE 59 31414-7 LOINC eGFR NON-AFR 69 ml/min eGFR AFR AMER 83 ml/min Social History Type Status Start Date End Date Code Code Syst em Smoking History Unknown if ever smoked [address] Sex Female Hospital Discharge Instructions [...]
--- NOTE | 2025-02-12 20:30 | ED_ITS ---
HPI - General Adult General Chief complaint: Recheck/Abnormal Lab/Rx Stated complaint: Unspecified Time Seen by Provider: 02/12/25 20:29 Source: patient Mode of arrival: ambulatory Limitations: no limitations History of Present Illness HPI narrative: 59 years old white female, history of aplastic anemia came to the ED to make sure that her hemoglobin level is okay. Last blood transfusion was January 26, 2025. Patient is asymptomatic, worried and concerned about the possibility of blood transfusion. History of COPD, type 2 diabetes Related Data Home Medications ?Medication ?Instructions ?Recorded ?Confirmed ?Last Taken ?Type albuterol sulfate 90 mcg/actuation 90 mcg inhalation Q6H PRN SOB 05/24/24 05/24/24 Unknown History aerosol inhaler omeprazole 40 mg capsule,delayed 40 mg PO DAILY 05/24/24 05/24/24 Unknown History release alprazolam 0.25 mg tablet 0.25 mg PO DAILY PRN anxiety 02/04/25 Unknown History escitalopram oxalate 10 mg tablet 10 mg PO DAILY 02/04/25 Unknown History levofloxacin 500 mg tablet 500 mg PO Q24H 02/04/25 Unknown History lorazepam 0.5 mg tablet 0.5 mg PO BID PRN anxiety 02/04/25 Unknown History oxycodone 5 mg tablet 5 mg PO Q6H PRN pain 02/04/25 Unknown History trazodone 100 mg tablet 100 mg PO HS 02/04/25 Unknown History Allergies Allergy/AdvReac Type Severity Reaction Status Date / Time Penicillins Allergy Hives Verified 01/29/25 22:54 codeine AdvReac Nausea Verified 01/29/25 22:54 Review of Systems 2 Review of Systems: All systems reviewed & are unremarkable except as noted in HPI and below PMFSH Past Medical History Medical History Abdominal pain Bronchitis COPD (chronic obstructive pulmonary disease) Type 2 diabetes mellitus Social History Social History Smoking packs per day: 1.5 Smoking cigarettes per day: 30.0 Years smoked: 35 Smoking pack-years: 52.50 Smoking status: Current every day smoker Tobacco type: cigarettes Second hand tobacco smoke exposure: Yes Alcohol intake: never Substance use: never Substance use type: does not use Do You Feel Safe in your Home?: Yes Lack of Transportation: No Lack of Food: Never True Current Housing: I Have Housing Concerned About Future Housing: No Difficulty Paying Gas/Electric Bills: No Difficulty Paying for Meds: No Currently Unemployed: No Education: Grade School Difficulty w/ Childcare or Family Care: No Living arrangements: with family Spiritual care concerns: No Exam 2 Narrative: General appearance: Well-developed, well-nourished Skin: Pale Head: Normocephalic, nontraumatic Eyes: Clear conjunctiva ENT: Oropharynx normal, ears normal, nose normal Neck: Supple, nontender Chest and respiratory: Airway patent, no respiratory distress, no accessory muscle use Heart: Regular rate/rhythm Abdomen: Soft, nontender, no organomegaly, quiet bowel sounds Musculoskeletal: Normal range of motion, nontender back Neurologic: Alert and oriented ?3, BARREL 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 Patient is asymptomatic. CBC today showed hemoglobin of 7.3 which is exactly the same as on February 04. Patient was advised to follow-up with Dr. Mar as soon as possible for further evaluation. The pt was discharged to home.the pt,s condition upon discharge was fair,education was provided to the pt in reference to the final impression,discharge study results,treatment,prognosis and need for follow up . Lab Data 02/12/25 20:42 Labs: Lab Results 02/12/25 Range/Units 20:42 WBC 1.3 L* (4.8-10.8) K/mm3 RBC 2.34 L (4.20-5.40) M/mm3 Hgb 7.3 L (12.0-15.0) g/dL Hct 23.1 L (35.0-49.0) % MCV 98.7 (78.0-102.0) fL MCH 31.2 H (27.0-31.0) pg MCHC 31.6 L (32-36) g/dL RDW 17.8 H (11.6-14.4) % Plt Count 34 L (150-420) K/mm3 MPV 13.9 H (9.2-11.8) fl Immature Gran % (Auto) Not Reportable Neut % (Auto) Not Reportable Lymph % (Auto) Not Reportable [place] % (Auto) Not Reportable Eos % (Auto) Not Reportable Baso % (Auto) Not Reportable Lymph # (Auto) Not Reportable [place] # (Auto) Not Reportable Eos # (Auto) Not Reportable Baso # (Auto) Not Reportable Abs Immat Gran (auto) Not Reportable Absolute Neuts (auto) Not Reportable Absolute Nucleated RBC Not Reportable Total Counted 100 Neutrophils % (Manual) 29 L (46-73) % Band Neutrophils % 0 (0-6) % Lymphocytes % (Manual) 64 H (18-44) % Monocytes % (Manual) 4 (3-9) % Eosinophils % (Manual) 2 (1-6) % Basophils % (Manual) 1 (0-1) % Nucleated RBC % Not Reportable Abs Neuts (Manual) 0.37 L (1.7-7.2) K/mm3 Abs Lymphs (Manual) 0.83 L (1.1-4.5) K/mm3 Abs Monocytes (Manual) 0.05 L (0.1-0.90) K/mm3 Absolute Eos (Manual) 0.02 (0.02-0.50) K/mm3 Abs Basophils (Manual) 0.01 (0-0.1) K/mm3 Platelet Estimate Decreased (Adequate) % Immature Plt Fraction 9.1 H (1.0-7.0) % Schistocytes Not Reportable Critical Care Time Critical Care Time Critical Care Time: No Discharge Plan Discharge Clinical Impression: Aplastic anemia Patient Disposition: Home Condition: Stable Instructions: Aplastic Anemia (DC) Additional Instructions: Return if symptoms are worsening , call your oncologist for appointment, take Tylenol as as needed for aches and pain, continue home medications. Patient Language: Upper Sorbian Prescriptions: No Action doxycycline hyclate 100 mg capsule 100 mg PO BID 10 Days Qty: 20 0RF alprazolam 0.25 mg tablet 0.25 mg PO DAILY PRN (Reason: anxiety) escitalopram oxalate 10 mg tablet 10 mg PO DAILY levofloxacin 500 mg tablet 500 mg PO Q24H lorazepam 0.5 mg tablet 0.5 mg PO BID PRN (Reason: anxiety) oxycodone 5 mg tablet 5 mg PO Q6H PRN (Reason: pain) trazodone 100 mg tablet 100 mg PO HS omeprazole 40 mg capsule,delayed release(DR/EC) 40 mg PO DAILY albuterol sulfate 90 mcg/actuation HFA aerosol inhaler 90 mcg INHALATION Q6H PRN (Reason: SOB) fexofenadine [Allergy Relief (fexofenadine)] 60 mg tablet 60 mg PO Q12H Qty: 60 2RF (DME) nebulizers [MC 300 Nebulizer w-Mouthpiece] Misc See Rx Instructions .Route Qty: 1 0RF Rx Instructions: As directed (DME) nebulizer accessories Kit See Rx Instructions .Route Qty: 1 0RF Rx Instructions: As directed Follow-up/Referrals: Reagan Fonseca MD [Primary Care Provider] -
[2025-02-12 20:47] LABS: Hematocrit 23.1 % (35.0-49.0); Hemoglobin 7.3 g/dL (12.0-15.0); Immature Platelet Fraction Pct 9.1 % (1.0-7.0); Mean Corpuscular HGB Conc 31.6 g/dL (32-36); Mean Corpuscular Hemoglobin 31.2 pg (27.0-31.0); Mean Corpuscular Volume 98.7 fL (78.0-102.0); Mean Platelet Volume 13.9 fl (9.2-11.8); Platelet Count Result 34 K/mm3 (150-420); Red Blood Count 2.34 M/mm3 (4.20-5.40); Red Cell Distribution Width 17.8 % (11.6-14.4)
[2025-02-12 20:51] LABS: White Blood Count 1.3 K/mm3 (4.8-10.8)
--- OUTSIDE RECORDS SUMMARY | 2025-02-12 20:52 | XMS_ITS ---
Author Organization Unknown Address [address] [place] [phone] Phone Care Team Providers Care Senior Loan Officer Name Role Phone JOHAN SULLIVAN Attending Unavailable Immunization Immunization Date Status Additional Notes Code Code System Tdap 03/26/2021 Completed 115 CVX Results US GALLBLADDER - Completed: 12/25/2024 12:00 LOINC: \TM00\\12PI\\DRAo\\BM09\ \MRHo\ [address] [address] ---------NAME--------- NUMBER SEX AGE ADMIT DISC. XRAY# F/C TYPE CHUYITA TONY [id number] F 59 12/25/24 12/25/24 [id number] MBJ O/P DATE OF : 1965 M/R# [id number] PH#: [phone] RM \MRHx\ LOCATION: TRANSCRIBED: 12/25/24 13:39 US GALLBLADDER [id number] COMPLETED:12/25/24 12:00 APC [id number] {REASON-US ABD: ABDOMINAL PAIN PHYSICIAN: JOHAN R [...] of gallstones or acute cholecystitis. Hepatic steatosis. DOWN NURSE \ITLo\ \UNDo\ \UNDx\ \ITLx\ Reviewed and Electronically Signed by: Ivan Acosta MD Signed Date: 12/25/24 13:39 Social History Type Status Start Date End Date Code Code Syst em Smoking History Unknown if ever smoked [id number] Sex Female Hospital Discharge Instructions [...] care physician Imaging Narrative Notes [facility] 12/25/2024 13:[address] [address] ---------NAME--------- NUMBER SEX AGE ADMIT DISC. XRAY# F/C TYPE CHUYITA TONY [id number] F 59 12/25/24 12/25/24 13482 MBJ O/P DATE OF : 1965 M/R# [id number] #: [id number] LOCATION: TRANSCRIBED: 12/25/24 13:39 US GALLBLADDER [id number] COMPLETED:12/25/24 12:00 APC [id number] {REASON-US ABD: ABDOMINAL PAIN PHYSICIAN: JOHAN RADIOLOGY [...] of gallstones or acute cholecystitis. Hepatic steatosis. DOWN NURSE Reviewed and Electronically Signed by: Ivan Acosta MD Signed Date: 12/25/24 13:39
--- OUTSIDE RECORDS SUMMARY | 2025-02-12 20:52 | XMS_ITS ---
Author Organization Unknown Address [address] [place] [phone] Phone Care Team Providers Care Purchasing/Receiving Name Role Phone PIPPA GREGORIONIHSA Attending Unavailable JOHAN SULLIVAN Primary Unavailable Immunization Immunization Date Status Additional Notes Code Code System Tdap 03/26/2021 Completed 115 CVX Social History Type Status Start Date End Date Code Code Syst em Smoking History Unknown if ever smoked [address] Sex Female Vital Signs Vital Sign Value Unit [place] Value [place] Unit Date/Time Recent/Initial? Code Code System Body Mass Index 34.97 kg/m2 02/04/2025 09:56 Initial 66652 -5 [facility] Systolic Blood Pressure 168 mm[Hg] 02/04/2025 09:53 Initial 8480- 6 LOINC Diastolic Blood Pressure 73 mm[Hg] 02/04/2025 09:53 Initial 8462- 4 INC Body Surface Area 2.24 m2 02/04/2025 09:56 Initial 3140- 1 LOINC Height 172.720 0 cm 68.00 in 02/04/2025 09:56 Initial 8302- 2 LOINC O2 Saturation 100 % 2024 09:53 Initial 76571 -5 LOINC Pulse 99.0 /min 02/04/2025 09:53 Initial 8867- 4 LOINC Respiration 22 /min 02/05/20 09:53 Initial 9279- 1 LOINC Temperature 36.3 Freda 97.3 F 02/05/20 09:53 Initial 8310- 5 LOINC Weight 104.33 kg 230.00 lbs 02/04/2025 09:56 Initial 75952 -7 INC Hospital Discharge Instructions Should you [...]
--- OUTSIDE RECORDS SUMMARY | 2025-02-12 20:52 | XMS_ITS | Continuity of Care Document ---
Author Organization [facility] Address [address] [place] [address] Phone Care Team Providers Care Biodiesel Production Associate Name Role Phone Yohana Ray PT Unavailable Unavailable Procedures Procedure Date PT Evaluation Moderate Complexity Therapeutic Activities Neuromuscular Re-Ed Manual Therapy Advance Directives Directive Yes / No Effective Date File Name No Information Encounters Encounter Description Practice Location Reason(s) For Visit Diagnoses Date Provider Providers Copied on Encounter [facility], [address], [place], [place], [id number], tel:[phone] [place] No Information Flor Muller. . [facility], [facility] [address], [place], [place], [address], tel:[phone] [place] No Information Flor Muller. . Family History Family Member Type Diagnosis Age At Onset No Information Payers Payer name Insurance type Covered green party ID Authoriza tion(s) [employer] Medicare Replacement 16 [id number] Medicaid OON Write Off CI 00 Social [...]
--- OUTSIDE RECORDS SUMMARY | 2025-02-12 20:52 | XMS_ITS ---
Author Organization Unknown Address [address] [place] [phone] Phone Care Team Providers Care Fine Grader Name Role Phone PIPPA BURCIAGAWade Attending Unavailable JOHAN SULLIVAN Primary Unavailable Immunization Immunization Date Status Additional Notes Code Code System Tdap 03/26/2021 Completed 115 CVX Results CBC W/ DIFF - Collect Date/T sarah: 01/23/2025 14:13 [facility] ID: [id number] [address] [place], [place], [id number] LOINC: 18176-4 Test Value Unit Reference Range Code Code [...] H=36.0 L PLATELETS 32 10^3uL L=100 H=400 28822-9 LOINC L RDW 17.1 % L=11.7 H=15.5 H %GRAN L=40.0 H=70.0 71049-5 LOINC %LYMPH L=20.0 H=45.0 736-9 LOINC %MONO L=2.0 H=10.0 17446-6 LOINC %EOS L=0.0 H=6.0 713-8 LOINC %BASO L=0.0 H=3.0 706-2 LOINC #NEUT L=1.9 H=7.6 49995-1 LOINC CALLED TO: CHRISTOPH BillingsleyHONORIO AT: 1448 01/23/25 BY: SDK #LYMPH L=0.9 H=4.9 18260-9 LOINC #MONO L=0.1 H=0.9 90428-4 LOINC #EOS L=0.0 H=0.6 712-0 LOINC #BASO L=0.00 H=0.10 89888-2 LOINC #IM GRANS L=0.0 H=7.0 36664-9 LOINC %IM GRANS L=0.0 H=5.0 45573-9 LOINC %NRB L=0.0 H=0.2 22907-9 LOINC #NRB L=0.000 H=0.012 36583-7 LOINC MANUAL DIFF SEE BELOW A SEG [...] L=0 H=0 BLASTS 0 % L=0 H=0 48072-0 LOINC PANDA LYMPHS 10.00 % L=0.00 H=5.00 H SMUDGE CELLS 0 % L=0 H=0 NRBC 0.0 % L=0.0 H=0.0 PLTS DECREASED NEUT # 0.6 10^3uL L=1.9 H=7.6 LL LYMPH # 1.0 10^3uL L=0.9 H=4.9 MONO # 0.1 10^3uL L=0.1 H=0.9 EOS # 0.1 10^3uL L=0.0 H=0.6 712-0 LOINC BASO # 0.0 10^3uL L=0.0 H=0.1 02367-0 LOINC RBC MORPH NOT INDICATED COMPREHENSIVE METABOLIC PANE L - Collect Date/Time: 01/23/2025 14:13 [facility] ID: [id number] [address] [place], [place], [id number] LOINC: 03898-0 Test Value Unit Reference Range Code Code [...] 2028-9 LOINC ANION GAP 9 L=10 H=20 26585-6 LOINC L OSMOLALITY 291 mOs/kG L=280 H=296 02099-2 LOINC BUN/CREAT 13.8 3097-3 LOINC CALCIUM 8.7 mg/dL L=8.3 H=10.5 73918-1 LOINC AST 20 U/L L=15 H=46 1920-8 LOINC ALT 12 U/L L=9 H=72 1742-6 LOINC ALKALINE PHOS 71 U/L L=38 H=126 6768-6 LOINC TOTAL BILI 0.2 mg/dL L=0.2 H=1.3 1975-2 LOINC ALBUMIN 3.7 G/dL L=3.5 H=5.0 1751-7 LOINC TOTAL PROTEIN 6.8 g/L L=6.3 H=8.2 2885-2 LOINC A/G RATIO 1.2 15153-7 LOINC AGE 59 82472-3 LOINC eGFR NON-AFR 79 ml/min eGFR AFR AMER 96 ml/min BB ABO AND RH TYPE - Collect Date/Time: 01/23/2025 14:13 [facility] ID: [id number] [address] [place], [place], [phone] LOINC: 53712-5 Test Value Unit Reference Range Code Code System Flag ABO TYPE A 883-9 LOINC RH TYPE POSITIVE BB RETYPE ABO AND RH TYPE - Collect Date/Time: 01/23/2025 14:13 [facility] ID: [id number] [address] [place], [place], [id number] LOINC: 15516-9 Test Value Unit Reference Range Code Code System Flag ABO TYPE A 883-9 LOINC RH TYPE POSITIVE Social History Type Status Start Date End Date Code Code Syst em Smoking History Unknown if ever smoked [address] Sex Female Hospital Discharge Instructions [...]
--- OUTSIDE RECORDS SUMMARY | 2025-02-12 20:52 | XMS_ITS ---
Author Organization Unknown Address [address] [place] [phone] Phone Care Team Providers Care Social Studies Department Chair Name Role Phone JOHAN SULLIVAN Attending Unavailable Immunization Immunization Date Status Additional Notes Code Code System Tdap 03/26/2021 Completed 115 CVX Results CBC W/ DIFF - Collect Date/T sarah: 01/08/2025 13:23 [facility] ID: [id number] [address] [place] [address], [id number] LOINC: 19817-1 Test Value Unit Reference Range Code Code [...] H=36.0 L PLATELETS 43 10^3uL L=100 H=400 81348-0 LOINC L RDW 16.1 % L=11.7 H=15.5 H %GRAN L=40.0 H=70.0 56014-2 LOINC %LYMPH L=20.0 H=45.0 736-9 LOINC %MONO L=2.0 H=10.0 20721-9 LOINC %EOS L=0.0 H=6.0 713-8 LOINC %BASO L=0.0 H=3.0 706-2 LOINC #NEUT L=1.9 H=7.6 47182-8 LOINC #LYMPH L=0.9 H=4.9 79735-8 LOINC #MONO L=0.1 H=0.9 09653-1 LOINC #EOS L=0.0 H=0.6 712-0 LOINC #BASO L=0.00 H=0.10 45809-6 LOINC #IM GRANS L=0.0 H=7.0 67914-6 LOINC %IM GRANS L=0.0 H=5.0 34370-0 LOINC %NRB L=0.0 H=0.2 04927-1 LOINC #NRB L=0.000 H=0.012 60664-8 LOINC MANUAL DIFF SEE BELOW A SEG [...] L=0 H=0 BLASTS 0 % L=0 H=0 79654-7 LOINC PANDA LYMPHS 0.00 % L=0.00 H=5.00 SMUDGE CELLS 0 % L=0 H=0 NRBC 0.0 % L=0.0 H=0.0 PLTS DECREASED NEUT # 0.7 10^3uL L=1.9 H=7.6 LL LYMPH # 1.2 10^3uL L=0.9 H=4.9 MONO # 0.0 10^3uL L=0.1 H=0.9 L EOS # 0.1 10^3uL L=0.0 H=0.6 712-0 LOINC BASO # 0.0 10^3uL L=0.0 H=0.1 92760-6 LOINC RBC MORPH NOT INDICATED COMPREHENSIVE METABOLIC PANE L - Collect Date/Time: 01/08/2025 13:23 [facility] ID: [id number] [place], [place], [id number] LOINC: 54314-5 Test Value Unit Reference Range Code Code [...] 2028-9 LOINC ANION GAP 10 L=10 H=20 65164-1 LOINC OSMOLALITY 288 mOs/kG L=280 H=296 52120-0 LOINC BUN/CREAT 13.3 3097-3 LOINC CALCIUM 8.9 mg/dL L=8.3 H=10.5 99535-8 LOINC AST 23 U/L L=15 H=46 1920-8 LOINC ALT 15 U/L L=9 H=72 1742-6 LOINC ALKALINE PHOS 61 U/L L=38 H=126 6768-6 LOINC TOTAL BILI 0.3 mg/dL L=0.2 H=1.3 1975-2 LOINC ALBUMIN 3.9 G/dL L=3.5 H=5.0 1751-7 LOINC TOTAL PROTEIN 7.6 g/L L=6.3 H=8.2 2885-2 LOINC A/G RATIO 1.1 35304-1 LOINC AGE 59 98056-8 LOINC eGFR NON-AFR 69 ml/min eGFR AFR AMER 83 ml/min Social History Type Status Start Date End Date Code Code Syst em Smoking History Unknown if ever smoked [id number] Sex Female Hospital Discharge Instructions [...]
[2025-02-12 21:13] LABS: Total Cells Counted 100
[2025-02-12 21:14] LABS: Band Neutrophils Percent 0 % (0-6); Basophils Absolute Manual 0.01 K/mm3 (0-0.1); Basophils Percent Manual 1 % (0-1); Eosinophils Absolute Manual 0.02 K/mm3 (0.02-0.50); Eosinophils Percent Manual 2 % (1-6); Lymphocytes Absolute Manual 0.83 K/mm3 (1.1-4.5); Lymphocytes Percent Manual 64 % (18-44); Monocytes Absolute Manual 0.05 K/mm3 (0.1-0.90); Monocytes Percent Manual 4 % (3-9); Neutrophils Absolute Manual 0.37 K/mm3 (1.7-7.2); Neutrophils Percent Manual 29 % (46-73); Platelet Estimate Decreased (Adequate)
== END 2025-02-12 21:20 | disposition home or self-care (01) ==
PROVIDERS: Emergency Provider Emergency Medicine; PCP Family Medicine
DX: D61.9 Aplastic anemia, unspecified (principal); J44.9 Chronic obstructive pulmonary disease, unspecified; E11.9 Type 2 diabetes mellitus without complications; F17.210 Nicotine dependence, cigarettes, uncomplicated; Z79.899 Other long term (current) drug therapy; Z79.891 Long term (current) use of opiate analgesic
CPT/HCPCS: 36415; 85025; 85055; 99283

== ENCOUNTER 2025-02-19 15:41 | Emergency (ER) | payer MEDICARE, SELFPAY ==
[2025-02-19] VITALS (55 sets, daily range): BP systolic 108–152; BP diastolic 53–87; PULSE 77–100; RESP 15–22; TEMP 36.4–37; O2SAT 95–100
--- NOTE | ~2025-02-19 | CT_ITS ---
EXAMINATION: CT brain wo con DATE: 02/19/2025 16:18 INDICATION: Bleeding in the ICA TECHNIQUE: Computed tomography (CT) of the head was performed without intravenous contrast. Sagittal and coronal reconstructions were performed. The mA was adjusted according to patient size. Iterative reconstruction technique was employed. The dose-length product was 605.33 mGy-cm. COMPARISON: head CT dated 09/20/2019 FINDINGS: No interval change in relatively symmetric extra axial fluid extending posterior to both the left and right cerebellar hemispheres which could be due to cerebellar atrophy or arachnoid cysts. No acute i ntracranial hemorrhage, acute infarction or other abnormal extra axial fluid collection. Ventricles a re normal and symmetric. No mass/mass effect. The visualized portions of the orbits and paranasal sin uses are normal. Bilateral mastoids are hypopneumatized. IMPRESSION: 1. No acute intracranial process. Reviewed, dictated and finalized at location A.
--- OUTSIDE RECORDS SUMMARY | 2025-02-19 15:49 | XMS_ITS ---
Author Organization Unknown Address [address] [place] [phone] Phone Care Team Providers Care Bottom Turning Lathe Tender Name Role Phone PIPPA GREGORIONISHA Attending Unavailable JOHAN SULLIVAN Primary Unavailable Immunization Immunization Date Status Additional Notes Code Code System Tdap 03/26/2021 Completed 115 CVX Social History Type Status Start Date End Date Code Code Syst em Smoking History Unknown if ever smoked [address] Sex Female Vital Signs Vital Sign Value Unit [place] Value [place] Unit Date/Time Recent/Initial? Code Code System Body Mass Index 34.97 kg/m2 02/04/2025 09:56 Initial 09629 -5 [facility] Systolic Blood Pressure 168 mm[Hg] 02/04/2025 09:53 Initial 8480- 6 LOINC Diastolic Blood Pressure 73 mm[Hg] 02/04/2025 09:53 Initial 8462- 4 INC Body Surface Area 2.24 m2 02/04/2025 09:56 Initial 3140- 1 LOINC Height 172.720 0 cm 68.00 in 02/04/2025 09:56 Initial 8302- 2 LOINC O2 Saturation 100 % 2024 09:53 Initial 44364 -5 INC Pulse 99.0 /min 02/04/2025 09:53 Initial 8867- 4 LOINC Respiration 22 /min 02/05/20 09:53 Initial 9279- 1 LOINC Temperature 36.3 Freda 97.3 F 02/05/20 09:53 Initial 8310- 5 LOINC Weight 104.33 kg 230.00 lbs 02/04/2025 09:56 Initial 37070 -7 INC Hospital Discharge Instructions Should you [...]
--- OUTSIDE RECORDS SUMMARY | 2025-02-19 15:50 | XMS_ITS ---
Author Organization Unknown Address [address] [place] [phone] Phone Care Team Providers Care Enterprise Account Executive Name Role Phone PIPPA GREGORIONISHA Attending Unavailable JOHAN SULLIVAN Primary Unavailable Immunization Immunization Date Status Additional Notes Code Code System Tdap 03/26/2021 Completed 115 CVX Results BB RETYPE ABO AND RH TYPE - Collect Date/Time: 01/23/2025 14:13 [facility] ID: [id number] [address] [place] [address], [id number] LOINC: 66907-7 Test Value Unit Reference Range Code Code System Flag ABO TYPE A 883-9 LOINC RH TYPE POSITIVE BB ABO AND RH TYPE - Collect Date/Time: 01/23/2025 14:13 [facility] ID: [id number] [address] [place] [address], [id number] LOINC: 64188-4 Test Value Unit Reference Range Code Code System Flag ABO TYPE A 883-9 LOINC RH TYPE POSITIVE COMPREHENSIVE METABOLIC PANE L - Collect Date/Time: 01/23/2025 14:13 [facility] ID: [id number] [address] [place] [address], [phone] LOINC: 36398-0 Test Value Unit Reference Range Code Code [...] 2028-9 LOINC ANION GAP 9 L=10 H=20 81115-6 LOINC L OSMOLALITY 291 mOs/kG L=280 H=296 14593-7 LOINC BUN/CREAT 13.8 3097-3 LOINC CALCIUM 8.7 mg/dL L=8.3 H=10.5 03154-7 LOINC AST 20 U/L L=15 H=46 1920-8 LOINC ALT 12 U/L L=9 H=72 1742-6 LOINC ALKALINE PHOS 71 U/L L=38 H=126 6768-6 LOINC TOTAL BILI 0.2 mg/dL L=0.2 H=1.3 1975-2 LOINC ALBUMIN 3.7 G/dL L=3.5 H=5.0 1751-7 LOINC TOTAL PROTEIN 6.8 g/L L=6.3 H=8.2 2885-2 LOINC A/G RATIO 1.2 64730-0 LOINC AGE 59 11398-6 LOINC eGFR NON-AFR 79 ml/min eGFR AFR AMER 96 ml/min CBC W/ DIFF - Collect Date/T sarah: 01/23/2025 14:13 [facility] ID: [id number] [address] [place], [place], [phone] LOINC: 24216-6 Test Value Unit Reference Range Code Code [...] H=36.0 L PLATELETS 32 10^3uL L=100 H=400 71113-9 LOINC L RDW 17.1 % L=11.7 H=15.5 H %GRAN L=40.0 H=70.0 70386-5 LOINC %LYMPH L=20.0 H=45.0 736-9 LOINC %MONO L=2.0 H=10.0 04911-5 LOINC %EOS L=0.0 H=6.0 713-8 LOINC %BASO L=0.0 H=3.0 706-2 LOINC #NEUT L=1.9 H=7.6 91172-4 LOINC CALLED TO: CHRISTOPH Reyes @HONORIO AT: 1448 01/23/25 BY: SDK #LYMPH L=0.9 H=4.9 21247-5 LOINC #MONO L=0.1 H=0.9 63613-6 LOINC #EOS L=0.0 H=0.6 712-0 LOINC #BASO L=0.00 H=0.10 26920-1 LOINC #IM GRANS L=0.0 H=7.0 62441-9 LOINC %IM GRANS L=0.0 H=5.0 22165-1 LOINC %NRB L=0.0 H=0.2 80928-2 LOINC #NRB L=0.000 H=0.012 87122-2 LOINC MANUAL DIFF SEE BELOW A SEG [...] L=0 H=0 BLASTS 0 % L=0 H=0 61596-2 LOINC PANDA LYMPHS 10.00 % L=0.00 H=5.00 H SMUDGE CELLS 0 % L=0 H=0 NRBC 0.0 % L=0.0 H=0.0 PLTS DECREASED NEUT # 0.6 10^3uL L=1.9 H=7.6 LL LYMPH # 1.0 10^3uL L=0.9 H=4.9 MONO # 0.1 10^3uL L=0.1 H=0.9 EOS # 0.1 10^3uL L=0.0 H=0.6 712-0 LOINC BASO # 0.0 10^3uL L=0.0 H=0.1 53003-9 LOINC RBC MORPH NOT INDICATED Social History Type Status Start Date End Date Code Code Syst em Smoking History Unknown if ever smoked [address] Sex Female Hospital Discharge Instructions [...]
--- OUTSIDE RECORDS SUMMARY | 2025-02-19 15:50 | XMS_ITS ---
Author Organization Unknown Address [address] [place] [address] [phone] Phone Care Team Providers Care Advertising Columnist Name Role Phone JOHAN SULLIVAN Attending Unavailable Immunization Immunization Date Status Additional Notes Code Code System Tdap 03/26/2021 Completed 115 CVX Results CBC W/ DIFF - Collect Date/T sarah: 01/08/2025 13:23 [facility] ID: [id number] [address] [place] [address], [phone] LOINC: 38790-5 Test Value Unit Reference Range Code Code [...] H=36.0 L PLATELETS 43 10^3uL L=100 H=400 84769-1 LOINC L RDW 16.1 % L=11.7 H=15.5 H %GRAN L=40.0 H=70.0 24606-2 LOINC %LYMPH L=20.0 H=45.0 736-9 LOINC %MONO L=2.0 H=10.0 46095-0 LOINC %EOS L=0.0 H=6.0 713-8 LOINC %BASO L=0.0 H=3.0 706-2 LOINC #NEUT L=1.9 H=7.6 01165-4 LOINC #LYMPH L=0.9 H=4.9 20694-1 LOINC #MONO L=0.1 H=0.9 38024-7 LOINC #EOS L=0.0 H=0.6 712-0 LOINC #BASO L=0.00 H=0.10 03037-9 LOINC #IM GRANS L=0.0 H=7.0 64136-9 LOINC %IM GRANS L=0.0 H=5.0 00400-5 LOINC %NRB L=0.0 H=0.2 58470-8 LOINC #NRB L=0.000 H=0.012 21162-4 LOINC MANUAL DIFF SEE BELOW A SEG [...] L=0 H=0 BLASTS 0 % L=0 H=0 40952-9 LOINC PANDA LYMPHS 0.00 % L=0.00 H=5.00 SMUDGE CELLS 0 % L=0 H=0 NRBC 0.0 % L=0.0 H=0.0 PLTS DECREASED NEUT # 0.7 10^3uL L=1.9 H=7.6 LL LYMPH # 1.2 10^3uL L=0.9 H=4.9 MONO # 0.0 10^3uL L=0.1 H=0.9 L EOS # 0.1 10^3uL L=0.0 H=0.6 712-0 LOINC BASO # 0.0 10^3uL L=0.0 H=0.1 89860-6 LOINC RBC MORPH NOT INDICATED COMPREHENSIVE METABOLIC PANE L - Collect Date/Time: 01/08/2025 13:23 [facility] ID: [id number] [address] [place], [place], [phone] LOINC: 04442-1 Test Value Unit Reference Range Code Code [...] 2028-9 LOINC ANION GAP 10 L=10 H=20 74390-7 LOINC OSMOLALITY 288 mOs/kG L=280 H=296 97833-5 LOINC BUN/CREAT 13.3 3097-3 LOINC CALCIUM 8.9 mg/dL L=8.3 H=10.5 71756-5 LOINC AST 23 U/L L=15 H=46 1920-8 LOINC ALT 15 U/L L=9 H=72 1742-6 LOINC ALKALINE PHOS 61 U/L L=38 H=126 6768-6 LOINC TOTAL BILI 0.3 mg/dL L=0.2 H=1.3 1975-2 LOINC ALBUMIN 3.9 G/dL L=3.5 H=5.0 1751-7 LOINC TOTAL PROTEIN 7.6 g/L L=6.3 H=8.2 2885-2 LOINC A/G RATIO 1.1 93263-2 LOINC AGE 59 92689-0 LOINC eGFR NON-AFR 69 ml/min eGFR AFR AMER 83 ml/min Social History Type Status Start Date End Date Code Code Syst em Smoking History Unknown if ever smoked [address] Sex Female Hospital Discharge Instructions [...]
--- OUTSIDE RECORDS SUMMARY | 2025-02-19 15:50 | XMS_ITS ---
Author Organization Unknown Address [address] [place] [address] [phone] Phone Care Team Providers Care Deck And Hull Assembler Name Role Phone JOHAN SULLIVAN Attending Unavailable Immunization Immunization Date Status Additional Notes Code Code System Tdap 03/26/2021 Completed 115 CVX Results US GALLBLADDER - Completed: 12/25/2024 12:00 LOINC: \TM00\\12PI\\DRAo\\BM09\ \MRHo\ [address] [address] ---------NAME--------- NUMBER SEX AGE ADMIT DISC. XRAY# F/C TYPE CHUYITA TONY [id number] F 59 12/25/24 12/25/24 88730 MBJ O/P DATE OF : 1965 M/R# [id number] PH#: [phone] RM \MRHx\ LOCATION: TRANSCRIBED: 12/25/24 13:39 [facility] GALLBLADDER [id number] COMPLETED:12/25/24 12:00 APC [id number] {REASON-US ABD: ABDOMINAL PAIN PHYSICIAN: JOHAN R [...] of gallstones or acute cholecystitis. Hepatic steatosis. ECTING AND TESTING LEAD HAND \ITLo\ \UNDo\ \UNDx\ \ITLx\ Reviewed and Electronically Signed by: Ivan Acosta MD Signed Date: 12/25/24 13:39 Social History Type Status Start Date End Date Code Code Syst em Smoking History Unknown if ever smoked [address] Sex Female Hospital Discharge Instructions [...] - Primary care physician Imaging Narrative Notes [facility] 12/25/2024 13:[address] [address] ---------NAME--------- NUMBER SEX AGE ADMIT DISC. XRAY# F/C TYPE CHUYITA TONY [id number] F 59 12/25/24 12/25/24 [id number] MBJ O/P DATE OF : 1965 M/R# [id number] #: [id number] LOCATION: TRANSCRIBED: 12/25/24 13:39 [facility] [id number] COMPLETED:12/25/24 12:00 APC [id number] {REASON-US ABD: ABDOMINAL PAIN PHYSICIAN: JOHAN RADIOLOGY [...] of gallstones or acute cholecystitis. Hepatic steatosis. ECTING AND TESTING LEAD HAND Reviewed and Electronically Signed by: Ivan Acosta MD Signed Date: 12/25/24 13:39
--- NOTE | 2025-02-19 15:58 | ED_ITS ---
HPI - Headache General Chief Complaint: Headache Stated Complaint: headache, bloodshot eye Time Seen by Provider: 02/19/25 15:55 Source: patient Mode of arrival: ambulatory Limitations: no limitations History of Present Illness HPI Narrative: Patient is a 59-year-old female with a 1 day history of a headache and a left eye subconjunctival hemorrhage. She has aplastic anemia. She sees a rip machine operator here at this facility tomorrow. Sales And Marketing Manager asked that she come to the ER and get some labs and a CT head. She has no other symptoms at this time. MD elicited complaint: headache Pertinent past history: other ( Aplastic anemia) Onset (ago): day(s) ( 1) Onset description: gradually, while at rest, with exertion and on awakening Location: left and frontal Severity: moderate Pain scale (0-10): 5 Quality & Timing: throbbing and sharp Exacerbating factors: none Relieving factors: nothing and other ( patient tried [place] without success) Context: occurred at rest, occurred with exertion/activity and other ( patient has aplastic anemia and was sent to the ER for evaluation due to the headache and subconjunctival hemorrhage on the left for both problems.) Associated symptoms: none Treatments prior to arrival: none Related Data Home Medications ?Medication ?Instructions ?Recorded ?Confirmed ?Last Taken ?Type albuterol sulfate 90 mcg/actuation 90 mcg inhalation Q6H PRN SOB 05/24/24 05/24/24 Unknown History aerosol inhaler omeprazole 40 mg capsule,delayed 40 mg PO DAILY 05/24/24 05/24/24 Unknown History release alprazolam 0.25 mg tablet 0.25 mg PO DAILY PRN anxiety 02/04/25 Unknown History escitalopram oxalate 10 mg tablet 10 mg PO DAILY 02/04/25 Unknown History levofloxacin 500 mg tablet 500 mg PO Q24H 02/04/25 Unknown History lorazepam 0.5 mg tablet 0.5 mg PO BID PRN anxiety 02/04/25 Unknown History oxycodone 5 mg tablet 5 mg PO Q6H PRN pain 02/04/25 Unknown History trazodone 100 mg tablet 100 mg PO HS 02/04/25 Unknown History Allergies Allergy/AdvReac Type Severity Reaction Status Date / Time Penicillins Allergy Hives Verified 02/19/25 15:56 codeine AdvReac Nausea Verified 02/19/25 15:56 Review of Systems 2 Review of Systems: All systems reviewed & are unremarkable except as noted in HPI and below Constitutional: Constitutional: Reports no additional constitutional complaints Eyes: Eyes: Reports no additional eye complaints ENT: Reports system reviewed and no additional complaints, except as documented Cardiovascular: Cardiovascular: Reports no additional cardiovascular complaints Respiratory: Respiratory: Reports no additional respiratory complaints Gastrointestinal: Gastrointestinal: Reports no additional gastrointestinal complaints Genitourinary: Genitourinary: Reports no additional female genitourinary complaints Musculoskeletal: Musculoskeletal: Reports no additional musculoskeletal complaints Integumentary/Breasts: Skin/Breast: Reports system reviewed and no additional complaints, except as docu Neurologic: Reports system reviewed and no additional complaints, except as documented Psychiatric: Psychiatric: Reports no additional psychiatric complaints Endocrine: Endocrine: Reports no additional endocrine complaints Hematologic/Lymphatic: Hematologic/Lymphatic: Reports no additional hematologic/lymphatic complaints Allergic/Immunologic: Allergic/Immunologic: Reports no additional allergic/immunologic complaints PMFSH Past Medical History Medical History Abdominal pain Bronchitis COPD (chronic obstructive pulmonary disease) Type 2 diabetes mellitus Social History Social History Smoking packs per day: 1.5 Smoking cigarettes per day: 30.0 Years smoked: 35 Smoking pack-years: 52.50 Smoking status: Current every day smoker Tobacco type: cigarettes Second hand tobacco smoke exposure: Yes Alcohol intake: never Substance use: never Substance use type: does not use Do You Feel Safe in your Home?: Yes Lack of Transportation: No Lack of Food: Never True Current Housing: I Have Housing Concerned About Future Housing: No Difficulty Paying Gas/Electric Bills: No Difficulty Paying for Meds: No Currently Unemployed: No Education: Grade School Difficulty w/ Childcare or Family Care: No Living arrangements: with family Spiritual care concerns: No Exam 2 Const: General: healthy appearing Nutritional Appearance: well nourished Orientation/consciousness: patient oriented x3 Limitations: no limitations HENMT: Head: normal to inspection Ears: external ears normal F hunter/Nose/Sinus: Normal external nose present Eyes: Conjunctivae: abnormal conjunctivae ( Left eye left lateral aspect subconjunctival hemorrhage) Pupils: Equal, round and reactive pupils present EOM: EOMs intact bilaterally Direct Ophthalmoscopy: no photophobia Neck: Neck: normal visual inspection Chest: Chest palpation & inspection: normal inspection of the chest Resp: Effort & Inspection: normal respiratory effort and not labored A uscultation: clear to auscultation bilaterally and no crackles Cardio: Rate: regular rate Rhythm: regular rhythm Heart sounds: no murmurs GI: Inspection: non-distended GI Palp: Yes Soft to palpation and No Tenderness to palpation present (GI) Auscultation: normal bowel sounds : General: Yes bladder normal to palpation Back/Spine/Pelvis: Back: no CVA tenderness Skin: General skin exam: normal color Rashes: no rashes Wounds: no wounds Neuro: General: patient oriented x3 Cranial nerves: Yes Nystagmus not present Speech: normal speech Gait exam (Neuro): Normal gait present O ther: fast exam negative, NIH is 0, GCS is 15 Extrem: General: normal to inspection Psych: Mental Status: mental status grossly normal Affect: normal affect Attitude: cooperative Course Vital Signs Vital signs: Vital Signs Temperature 37.0 C 02/19/25 15:41 Pulse Rate 100 02/19/25 15:41 Respiratory Rate 15 02/19/25 15:41 Blood Pressure 145/65 H 02/19/25 15:41 Pulse Oximetry 98 02/19/25 15:41 Oxygen Delivery Room Air 02/19/25 15:41 Temperature 36.4 C 02/19/25 21:01 Pulse Rate 84 02/19/25 21:01 Respiratory Rate 18 02/19/25 21:01 Blood Pressure 139/60 02/19/25 21:01 Pulse Oximetry 99 02/19/25 21:01 Oxygen Delivery Room Air 02/19/25 15:41 MDM - Headache MDM Narrative Medical decision making narrative: patient is a 59-year-old female with aplastic anemia having a left eye subconjunctival hemorrhage and a headache. We will do CT scan of the head and labs for reassurance. Discussed case with her rip machine operator and he would like 1 unit of PRBCs at this time. Then she may go home and see him tomorrow as planned. I will give her an oxycodone for pain relief as she cannot have Tylenol or NSAIDs. Lab Data Attestation: I reviewed the patient's lab results. 02/19/25 21:52 02/19/25 16:19 Labs: Lab Results 02/19/25 02/19/25 Range/Units 16:19 21:52 WBC 1.4 L* (4.8-10.8) K/mm3 RBC 2.20 L (4.20-5.40) M/mm3 Hgb 6.8 L* 7.3 L (12.0-15.0) g/dL Hct 21.7 L 23.4 L (35.0-49.0) % MCV 98.6 (78.0-102.0) fL MCH 30.9 (27.0-31.0) pg MCHC 31.3 L (32-36) g/dL RDW 18.1 H (11.6-14.4) % Plt Count 36 L (150-420) K/mm3 MPV 13.3 H (9.2-11.8) fl Immature Gran % (Auto) Not Reportable Neut % (Auto) Not Reportable Lymph % (Auto) Not Reportable Piatt % (Auto) Not Reportable Eos % (Auto) Not Reportable Baso % (Auto) Not Reportable Lymph # (Auto) Not Reportable Piatt # (Auto) Not Reportable Eos # (Auto) Not Reportable Baso # (Auto) Not Reportable Abs Immat Gran (auto) Not Reportable Absolute Neuts (auto) Not Reportable Absolute Nucleated RBC Not Reportable Total Counted 100 Neutrophils % (Manual) 35 L (46-73) % Band Neutrophils % 0 (0-6) % Lymphocytes % (Manual) 52 H (18-44) % Monocytes % (Manual) 9 (3-9) % Eosinophils % (Manual) 1 (1-6) % Basophils % (Manual) 0 (0-1) % Myelocytes % 3 % Nucleated RBC % Not Reportable Abs Neuts (Manual) 0.49 L* (1.3-6.7) K/mm3 Abs Lymphs (Manual) 0.72 L (1.1-4.5) K/mm3 Abs Monocytes (Manual) 0.12 (0.1-0.90) K/mm3 Absolute Eos (Manual) 0.01 L (0.02-0.50) K/mm3 Abs Basophils (Manual) 0.00 (0-0.1) K/mm3 Smudge Cells Platelet Estimate Decreased (Adequate) % Immature Plt Fraction 9.3 H (1.0-7.0) % Schistocytes None seen PT 10.9 (9.50-12.1) Seconds INR 1.0 APTT 23.9 (23.9-30.70) Sec Sodium 138 (137-145) mmol/L Potassium 4.0 (3.4-5.0) mmol/L Chloride 106 (98-107) mmol/L Carbon Dioxide 28 (22-30) mmol/L Anion Gap 4 (4-12) mmol/L BUN 15 D (7-17) mg/dL Creatinine 0.87 (0.7-1.0) mg/dL Estim Creat Clear Calc 73 ml/min Estimated GFR > 60 (59 - ) Glucose 143 H (65-110) mg/dL Calculated Osmolality 288 (285-295) mOsm/kg Calcium 8.3 L (8.4-10.2) mg/dL Total Bilirubin 0.4 (0.2-1.3) mg/dL AST 20 (14-36) U/L ALT 10 (6-35) U/L Alkaline Phosphatase 66 (38-126) U/L Total Protein 6.8 (6.3-8.2) g/dL Albumin 3.7 (3.5-5.1) g/dL Blood Type A Positive Antibody Screen Negative Crossmatch See Detail Imaging Data Attestation: I personally reviewed and interpreted this imaging study as follows: Radiologist's impression: CT scan of the head is negative for acute process Discharge Plan Discharge Clinical Impression: Aplastic anemia Patient Disposition: Home Condition: Stable Instructions: Aplastic Anemia (DC) Patient Language: Japanese Prescriptions: No Action doxycycline hyclate 100 mg capsule 100 mg PO BID 10 Days Qty: 20 0RF alprazolam 0.25 mg tablet 0.25 mg PO DAILY PRN (Reason: anxiety) escitalopram oxalate 10 mg tablet 10 mg PO DAILY levofloxacin 500 mg tablet 500 mg PO Q24H lorazepam 0.5 mg tablet 0.5 mg PO BID PRN (Reason: anxiety) oxycodone 5 mg tablet 5 mg PO Q6H PRN (Reason: pain) trazodone 100 mg tablet 100 mg PO HS omeprazole 40 mg capsule,delayed release(DR/EC) 40 mg PO DAILY albuterol sulfate 90 mcg/actuation HFA aerosol inhaler 90 mcg INHALATION Q6H PRN (Reason: SOB) fexofenadine [Allergy Relief (fexofenadine)] 60 mg tablet 60 mg PO Q12H Qty: 60 2RF (DME) nebulizers [MC 300 Nebulizer w-Mouthpiece] Misc See Rx Instructions .Route Qty: 1 0RF Rx Instructions: As directed (DME) nebulizer accessories Kit See Rx Instructions .Route Qty: 1 0RF Rx Instructions: As directed Follow-up/Referrals: Reagan Fonseca MD [Primary Care Provider] - Time of Disposition: 22:16
--- OUTSIDE RECORDS SUMMARY | 2025-02-19 16:27 | XMS_ITS ---
Author Organization Unknown Address [address] [place] [address] [phone] Phone Care Team Providers Care Marketing Analytics Manager Name Role Phone PIPPA GREGORIONISHA Attending Unavailable JOHAN SULLIVAN Primary Unavailable Immunization Immunization Date Status Additional Notes Code Code System Tdap 03/26/2021 Completed 115 CVX Social History Type Status Start Date End Date Code Code Syst em Smoking History Unknown if ever smoked [address] Sex Female Vital Signs Vital Sign Value Unit [place] Value [place] Unit Date/Time Recent/Initial? Code Code System Body Mass Index 34.97 kg/m2 02/04/2025 09:56 Initial 49635 -5 [facility] Systolic Blood Pressure 168 mm[Hg] 02/04/2025 09:53 Initial 8480- 6 LOINC Diastolic Blood Pressure 73 mm[Hg] 02/04/2025 09:53 Initial 8462- 4 INC Body Surface Area 2.24 m2 02/04/2025 09:56 Initial 3140- 1 LOINC Height 172.720 0 cm 68.00 in 02/04/2025 09:56 Initial 8302- 2 LOINC O2 Saturation 100 % 2024 09:53 Initial 29408 -5 INC Pulse 99.0 /min 02/04/2025 09:53 Initial 8867- 4 LOINC Respiration 22 /min 02/05/20 09:53 Initial 9279- 1 LOINC Temperature 36.3 Freda 97.3 F 02/05/20 09:53 Initial 8310- 5 LOINC Weight 104.33 kg 230.00 lbs 02/04/2025 09:56 Initial 56898 -7 INC Hospital Discharge Instructions Should you [...]
--- OUTSIDE RECORDS SUMMARY | 2025-02-19 16:27 | XMS_ITS ---
Author Organization Unknown Address [address] [place] [phone] Phone Care Team Providers Care Mail Carrier Name Role Phone JOHAN SULLIVAN Attending Unavailable Immunization Immunization Date Status Additional Notes Code Code System Tdap 03/26/2021 Completed 115 CVX Results CBC W/ DIFF - Collect Date/T sarah: 01/08/2025 13:23 [facility] ID: [id number] [address] [place] [address], [phone] LOINC: 38808-9 Test Value Unit Reference Range Code Code [...] H=36.0 L PLATELETS 43 10^3uL L=100 H=400 51332-8 LOINC L RDW 16.1 % L=11.7 H=15.5 H %GRAN L=40.0 H=70.0 56274-0 LOINC %LYMPH L=20.0 H=45.0 736-9 LOINC %MONO L=2.0 H=10.0 72555-4 LOINC %EOS L=0.0 H=6.0 713-8 LOINC %BASO L=0.0 H=3.0 706-2 LOINC #NEUT L=1.9 H=7.6 92358-8 LOINC #LYMPH L=0.9 H=4.9 10081-7 LOINC #MONO L=0.1 H=0.9 41702-1 LOINC #EOS L=0.0 H=0.6 712-0 LOINC #BASO L=0.00 H=0.10 43985-4 LOINC #IM GRANS L=0.0 H=7.0 46768-6 LOINC %IM GRANS L=0.0 H=5.0 70308-4 LOINC %NRB L=0.0 H=0.2 95656-0 LOINC #NRB L=0.000 H=0.012 72802-4 LOINC MANUAL DIFF SEE BELOW A SEG [...] L=0 H=0 BLASTS 0 % L=0 H=0 29440-4 LOINC PANDA LYMPHS 0.00 % L=0.00 H=5.00 SMUDGE CELLS 0 % L=0 H=0 NRBC 0.0 % L=0.0 H=0.0 PLTS DECREASED NEUT # 0.7 10^3uL L=1.9 H=7.6 LL LYMPH # 1.2 10^3uL L=0.9 H=4.9 MONO # 0.0 10^3uL L=0.1 H=0.9 L EOS # 0.1 10^3uL L=0.0 H=0.6 712-0 LOINC BASO # 0.0 10^3uL L=0.0 H=0.1 33250-7 LOINC RBC MORPH NOT INDICATED COMPREHENSIVE METABOLIC PANE L - Collect Date/Time: 01/08/2025 13:23 [facility] ID: [id number] [address] [place], [place], [id number] LOINC: 93923-7 Test Value Unit Reference Range Code Code [...] 2028-9 LOINC ANION GAP 10 L=10 H=20 14584-5 LOINC OSMOLALITY 288 mOs/kG L=280 H=296 66105-0 LOINC BUN/CREAT 13.3 3097-3 LOINC CALCIUM 8.9 mg/dL L=8.3 H=10.5 73180-9 LOINC AST 23 U/L L=15 H=46 1920-8 LOINC ALT 15 U/L L=9 H=72 1742-6 LOINC ALKALINE PHOS 61 U/L L=38 H=126 6768-6 LOINC TOTAL BILI 0.3 mg/dL L=0.2 H=1.3 1975-2 LOINC ALBUMIN 3.9 G/dL L=3.5 H=5.0 1751-7 LOINC TOTAL PROTEIN 7.6 g/L L=6.3 H=8.2 2885-2 LOINC A/G RATIO 1.1 78639-0 LOINC AGE 59 91627-2 LOINC eGFR NON-AFR 69 ml/min eGFR AFR AMER 83 ml/min Social History Type Status Start Date End Date Code Code Syst em Smoking History Unknown if ever smoked [address] Sex Female Hospital Discharge Instructions [...]
--- OUTSIDE RECORDS SUMMARY | 2025-02-19 16:27 | XMS_ITS ---
Author Organization Unknown Address [address] [place] [phone] Phone Care Team Providers Care Asbestos Abatement Technician Name Role Phone PIPPA BURCIAGAWade Attending Unavailable JOHAN SULLIVAN Primary Unavailable Immunization Immunization Date Status Additional Notes Code Code System Tdap 03/26/2021 Completed 115 CVX Results BB RETYPE ABO AND RH TYPE - Collect Date/Time: 01/23/2025 14:13 [facility] ID: [id number] [address] [place] [address], [phone] LOINC: 21628-2 Test Value Unit Reference Range Code Code System Flag ABO TYPE A 883-9 LOINC RH TYPE POSITIVE BB ABO AND RH TYPE - Collect Date/Time: 01/23/2025 14:13 [facility] ID: [id number] [address] [place] [address], [phone] LOINC: 26232-5 Test Value Unit Reference Range Code Code System Flag ABO TYPE A 883-9 LOINC RH TYPE POSITIVE COMPREHENSIVE METABOLIC PANE L - Collect Date/Time: 01/23/2025 14:13 [facility] ID: [id number] [address] [place] [address], [phone] LOINC: 32075-9 Test Value Unit Reference Range Code Code [...] 2028-9 LOINC ANION GAP 9 L=10 H=20 30648-6 LOINC L OSMOLALITY 291 mOs/kG L=280 H=296 98008-4 LOINC BUN/CREAT 13.8 3097-3 LOINC CALCIUM 8.7 mg/dL L=8.3 H=10.5 45915-0 LOINC AST 20 U/L L=15 H=46 1920-8 LOINC ALT 12 U/L L=9 H=72 1742-6 LOINC ALKALINE PHOS 71 U/L L=38 H=126 6768-6 LOINC TOTAL BILI 0.2 mg/dL L=0.2 H=1.3 1975-2 LOINC ALBUMIN 3.7 G/dL L=3.5 H=5.0 1751-7 LOINC TOTAL PROTEIN 6.8 g/L L=6.3 H=8.2 2885-2 LOINC A/G RATIO 1.2 03255-9 LOINC AGE 59 26875-4 LOINC eGFR NON-AFR 79 ml/min eGFR AFR AMER 96 ml/min CBC W/ DIFF - Collect Date/T sarah: 01/23/2025 14:13 [facility] ID: [id number] [address] [place], [place], [phone] LOINC: 53161-6 Test Value Unit Reference Range Code Code [...] H=36.0 L PLATELETS 32 10^3uL L=100 H=400 33313-9 LOINC L RDW 17.1 % L=11.7 H=15.5 H %GRAN L=40.0 H=70.0 33331-7 LOINC %LYMPH L=20.0 H=45.0 736-9 LOINC %MONO L=2.0 H=10.0 34013-9 LOINC %EOS L=0.0 H=6.0 713-8 LOINC %BASO L=0.0 H=3.0 706-2 LOINC #NEUT L=1.9 H=7.6 37312-8 LOINC CALLED TO: CHRISTOPH Reyes @HONORIO AT: 1448 01/23/25 BY: SDK #LYMPH L=0.9 H=4.9 23873-3 LOINC #MONO L=0.1 H=0.9 36385-4 LOINC #EOS L=0.0 H=0.6 712-0 LOINC #BASO L=0.00 H=0.10 85892-3 LOINC #IM GRANS L=0.0 H=7.0 67952-3 LOINC %IM GRANS L=0.0 H=5.0 75323-4 LOINC %NRB L=0.0 H=0.2 60147-1 LOINC #NRB L=0.000 H=0.012 83825-8 LOINC MANUAL DIFF SEE BELOW A SEG [...] L=0 H=0 BLASTS 0 % L=0 H=0 37048-7 LOINC PANDA LYMPHS 10.00 % L=0.00 H=5.00 H SMUDGE CELLS 0 % L=0 H=0 NRBC 0.0 % L=0.0 H=0.0 PLTS DECREASED NEUT # 0.6 10^3uL L=1.9 H=7.6 LL LYMPH # 1.0 10^3uL L=0.9 H=4.9 MONO # 0.1 10^3uL L=0.1 H=0.9 EOS # 0.1 10^3uL L=0.0 H=0.6 712-0 LOINC BASO # 0.0 10^3uL L=0.0 H=0.1 88763-8 LOINC RBC MORPH NOT INDICATED Social History Type Status Start Date End Date Code Code Syst em Smoking History Unknown if ever smoked [address] Sex Female Hospital Discharge Instructions [...]
--- OUTSIDE RECORDS SUMMARY | 2025-02-19 16:28 | XMS_ITS ---
Author Organization Unknown Address [address] [place] [phone] Phone Care Team Providers Care Montessori Program Director Name Role Phone JOHAN SULLIVAN Attending Unavailable Immunization Immunization Date Status Additional Notes Code Code System Tdap 03/26/2021 Completed 115 CVX Results US GALLBLADDER - Completed: 12/25/2024 12:00 LOINC: \TM00\\12PI\\DRAo\\BM09\ \MRHo\ [address] [address] ---------NAME--------- NUMBER SEX AGE ADMIT DISC. XRAY# F/C TYPE CHUYITA TONY [id number] F 59 12/25/24 12/25/24 [id number] MBJ O/P DATE OF : 1965 M/R# [id number] PH#: [phone] RM \MRHx\ LOCATION: TRANSCRIBED: 12/25/24 13:39 US GALLBLADDER [id number] COMPLETED:12/25/24 12:00 APC 12761 {REASON-US ABD: ABDOMINAL PAIN PHYSICIAN: JOHAN R [...] of gallstones or acute cholecystitis. Hepatic steatosis. EN PRINTING LOADER UNLOADER \ITLo\ \UNDo\ \UNDx\ \ITLx\ Reviewed and Electronically Signed by: Ivan Acosta MD Signed Date: 12/25/24 13:39 Social History Type Status Start Date End Date Code Code Syst em Smoking History Unknown if ever smoked [address] Sex Female Hospital Discharge Instructions [...] - Primary care physician Imaging Narrative Notes [facility] 12/25/2024 13:[address] [address] ---------NAME--------- NUMBER SEX AGE ADMIT DISC. XRAY# F/C TYPE CHUYITA TONY [id number] F 59 12/25/24 12/25/24 70162 MBJ O/P DATE OF : 1965 M/R# [id number] #: [id number] LOCATION: TRANSCRIBED: 12/25/24 13:39 US GALLBLADDER [id number] COMPLETED:12/25/24 12:00 APC 88273 {REASON-US ABD: ABDOMINAL PAIN PHYSICIAN: JOHAN RADIOLOGY [...] of gallstones or acute cholecystitis. Hepatic steatosis. EN PRINTING LOADER UNLOADER Reviewed and Electronically Signed by: Ivan Acosta MD Signed Date: 12/25/24 13:39
[2025-02-19 16:30] LABS: Hematocrit 21.7 % (35.0-49.0); Immature Platelet Fraction Pct 9.3 % (1.0-7.0); Mean Corpuscular HGB Conc 31.3 g/dL (32-36); Mean Corpuscular Hemoglobin 30.9 pg (27.0-31.0); Mean Corpuscular Volume 98.6 fL (78.0-102.0); Mean Platelet Volume 13.3 fl (9.2-11.8); Platelet Count Result 36 K/mm3 (150-420); Red Cell Distribution Width 18.1 % (11.6-14.4)
[2025-02-19 16:34] LABS: Hemoglobin 6.8 g/dL (12.0-15.0); White Blood Count 1.4 K/mm3 (4.8-10.8)
[2025-02-19 16:41] LABS: Alanine Aminotransferase 10 U/L (6-35); Albumin Level 3.7 g/dL (3.5-5.1); Alkaline Phosphatase 66 U/L (38-126); Anion Gap 4 mmol/L (4-12); Aspartate Amino Transferase 20 U/L (14-36); Bilirubin,Total 0.4 mg/dL (0.2-1.3); Blood Urea Nitrogen 15 mg/dL (7-17); Calcium 8.3 mg/dL (8.4-10.2); Carbon Dioxide 28 mmol/L (22-30); Chloride 106 mmol/L (98-107); Estimated CRCL calculation 73 ml/min; Estimated Glomerular Filt Rate > 60; Glucose 143 mg/dL (65-110); Osmolality Calculated 288 mOsm/kg (285-295); Partial Thromboplastin Time 23.9 Sec (23.9-30.70); Prothrombin Time 10.9 Seconds (9.50-12.1); Sodium 138 mmol/L (137-145); Total Protein 6.8 g/dL (6.3-8.2)
[2025-02-19 16:54] LABS: Eosinophils Absolute Manual 0.01 K/mm3 (0.02-0.50); Eosinophils Percent Manual 1 % (1-6); Monocytes Absolute Manual 0.12 K/mm3 (0.1-0.90); Monocytes Percent Manual 9 % (3-9); Neutrophils Percent Manual 35 % (46-73); Total Cells Counted 100
[2025-02-19 16:55] LABS: Band Neutrophils Percent 0 % (0-6); Basophils Percent Manual 0 % (0-1); Lymphocytes Absolute Manual 0.72 K/mm3 (1.1-4.5); Lymphocytes Percent Manual 52 % (18-44); Myelocytes Percent 3 %; Neutrophils Absolute Manual 0.49 K/mm3 (1.3-6.7)
[2025-02-19 16:56] LABS: Platelet Estimate Decreased (Adequate); Schistocytes None Seen
[2025-02-19] MEDS: oxyCODONE HCL (*CRX) 5 MG TAB IR PO (17:37)
[2025-02-19] MEDS: SODIUM CHLORIDE 0.9% IV 250 ML 30 ML IV CONT (18:45)
--- NOTE | 2025-02-19 19:15 | PC.NURSE ---
patient report received from JAYSON Madera. patient resting on stretcher, awaiting blood infusion to be completed.
--- NOTE | 2025-02-19 20:10 | PC.NURSE ---
RN to bedside. patient awake and alert resting on stretcher with blood infusing. family member at bedside. patient assisted to position of comfort, provided with warm blanket and VS updated, stable. patient denies further needs, given ice chips for her drink.
--- NOTE | 2025-02-19 21:10 | PC.NURSE ---
patient resting on stretcher blood infused. visitor at bedside. vss. RN monitoring. ERP aware, orders for repeat H/H.
--- NOTE | 2025-02-19 21:50 | PC.NURSE ---
sales order specialist at bedside for lab draw of repeat H/H.
[2025-02-19 21:54] LABS: Hematocrit 23.4 % (35.0-49.0); Hemoglobin 7.3 g/dL (12.0-15.0)
--- NOTE | 2025-02-19 22:17 | PC.NURSE ---
patient update provided. IV removed. awaiting DC papers.
== END 2025-02-19 22:25 | disposition home or self-care (01) ==
PROVIDERS: Emergency Provider Emergency Medicine; PCP Family Medicine
DX: D61.9 Aplastic anemia, unspecified (principal); H11.32 Conjunctival hemorrhage, left eye; E11.9 Type 2 diabetes mellitus without complications; J44.9 Chronic obstructive pulmonary disease, unspecified; F17.210 Nicotine dependence, cigarettes, uncomplicated
CPT/HCPCS: 36415; 36430; 70450; 80053; 85014; 85018; 85025; 85055; 85610; 85730; 86850; 86900; 86901; 86920; 96360; 96361; 99284; A9270; J7050; P9016

== ENCOUNTER 2025-02-21 13:19 | Outpatient (CLI) | payer MEDICARE, SELFPAY ==
[2025-02-21] MEDS: SODIUM CHLORIDE 0.9% IVPB ×2 (13:37→14:00)
[2025-02-21] MEDS: ONDANSETRON IVPB (13:37)
[2025-02-21 13:44] VITALS: BP 132/74; PULSE 78; RESP 14; TEMP 36.6; O2SAT 96; BMI 32.2
--- OUTSIDE RECORDS SUMMARY | 2025-02-21 13:57 | XMS_ITS ---
Author Organization Unknown Address [address] [place] [address] [phone] Phone Care Team Providers Care Varnish Supervisor Name Role Phone PIPPA GREGORIONISHA Attending Unavailable JOHAN SULLIVAN Primary Unavailable Immunization Immunization Date Status Additional Notes Code Code System Tdap 03/26/2021 Completed 115 CVX Social History Type Status Start Date End Date Code Code Syst em Smoking History Unknown if ever smoked [address] Sex Female Vital Signs Vital Sign Value Unit Winona Value Winona Unit Date/Time Recent/Initial? Code Code System Body Mass Index 34.97 kg/m2 02/04/2025 09:56 Initial 83060 -5 [facility] Systolic Blood Pressure 168 mm[Hg] 02/04/2025 09:53 Initial 8480- 6 LOINC Diastolic Blood Pressure 73 mm[Hg] 02/04/2025 09:53 Initial 8462- 4 INC Body Surface Area 2.24 m2 02/04/2025 09:56 Initial 3140- 1 LOINC Height 172.720 0 cm 68.00 in 02/04/2025 09:56 Initial 8302- 2 LOINC O2 Saturation 100 % 2024 09:53 Initial 23090 -5 INC Pulse 99.0 /min 02/04/2025 09:53 Initial 8867- 4 LOINC Respiration 22 /min 02/05/20 09:53 Initial 9279- 1 LOINC Temperature 36.3 Freda 97.3 F 02/05/20 09:53 Initial 8310- 5 LOINC Weight 104.33 kg 230.00 lbs 02/04/2025 09:56 Initial 18039 -7 INC Hospital Discharge Instructions Should you [...]
--- OUTSIDE RECORDS SUMMARY | 2025-02-21 13:57 | XMS_ITS ---
Author Organization Unknown Address [address] [place] [address] [phone] Phone Care Team Providers Care Heavy Forger Helper Name Role Phone PIPPA KNOX Attending Unavailable JOHAN SULLIVAN Primary Unavailable Immunization Immunization Date Status Additional Notes Code Code System Tdap 03/26/2021 Completed 115 CVX Results CBC W/ DIFF - Collect Date/T sarah: 01/23/2025 14:13 [facility] ID: [id number] [address] [place] [address], [phone] LOINC: 86876-1 Test Value Unit Reference Range Code Code [...] H=36.0 L PLATELETS 32 10^3uL L=100 H=400 13437-9 LOINC L RDW 17.1 % L=11.7 H=15.5 H %GRAN L=40.0 H=70.0 57959-6 LOINC %LYMPH L=20.0 H=45.0 736-9 LOINC %MONO L=2.0 H=10.0 91177-1 LOINC %EOS L=0.0 H=6.0 713-8 LOINC %BASO L=0.0 H=3.0 706-2 LOINC #NEUT L=1.9 H=7.6 18241-1 LOINC CALLED TO: CHRISTOPH MÁRQUEZ AT: 1448 01/23/25 BY: SDK #LYMPH L=0.9 H=4.9 05378-6 LOINC #MONO L=0.1 H=0.9 26883-2 LOINC #EOS L=0.0 H=0.6 712-0 LOINC #BASO L=0.00 H=0.10 74156-1 LOINC #IM GRANS L=0.0 H=7.0 28098-7 LOINC %IM GRANS L=0.0 H=5.0 12298-0 LOINC %NRB L=0.0 H=0.2 84243-1 LOINC #NRB L=0.000 H=0.012 60596-1 LOINC MANUAL DIFF SEE BELOW A SEG [...] L=0 H=0 BLASTS 0 % L=0 H=0 59806-9 LOINC PANDA LYMPHS 10.00 % L=0.00 H=5.00 H SMUDGE CELLS 0 % L=0 H=0 NRBC 0.0 % L=0.0 H=0.0 PLTS DECREASED NEUT # 0.6 10^3uL L=1.9 H=7.6 LL LYMPH # 1.0 10^3uL L=0.9 H=4.9 MONO # 0.1 10^3uL L=0.1 H=0.9 EOS # 0.1 10^3uL L=0.0 H=0.6 712-0 LOINC BASO # 0.0 10^3uL L=0.0 H=0.1 25954-1 LOINC RBC MORPH NOT INDICATED COMPREHENSIVE METABOLIC PANE L - Collect Date/Time: 01/23/2025 14:13 [facility] ID: [id number] [address] [place], [place], [phone] LOINC: 58678-7 Test Value Unit Reference Range Code Code [...] 2028-9 LOINC ANION GAP 9 L=10 H=20 37957-0 LOINC L OSMOLALITY 291 mOs/kG L=280 H=296 04635-3 LOINC BUN/CREAT 13.8 3097-3 LOINC CALCIUM 8.7 mg/dL L=8.3 H=10.5 53088-0 LOINC AST 20 U/L L=15 H=46 1920-8 LOINC ALT 12 U/L L=9 H=72 1742-6 LOINC ALKALINE PHOS 71 U/L L=38 H=126 6768-6 LOINC TOTAL BILI 0.2 mg/dL L=0.2 H=1.3 1975-2 LOINC ALBUMIN 3.7 G/dL L=3.5 H=5.0 1751-7 LOINC TOTAL PROTEIN 6.8 g/L L=6.3 H=8.2 2885-2 LOINC A/G RATIO 1.2 36383-5 LOINC AGE 59 55088-1 LOINC eGFR NON-AFR 79 ml/min eGFR AFR AMER 96 ml/min BB ABO AND RH TYPE - Collect Date/Time: 01/23/2025 14:13 [facility] ID: [id number] [address] [place], [place], [phone] LOINC: 39377-9 Test Value Unit Reference Range Code Code System Flag ABO TYPE A 883-9 LOINC RH TYPE POSITIVE BB RETYPE ABO AND RH TYPE - Collect Date/Time: 01/23/2025 14:13 [facility] ID: [id number] [address] [place], [place], [phone] LOINC: 57822-3 Test Value Unit Reference Range Code Code System Flag ABO TYPE A 883-9 LOINC RH TYPE POSITIVE Social History Type Status Start Date End Date Code Code Syst em Smoking History Unknown if ever smoked [address] Sex Female Hospital Discharge Instructions [...]
[2025-02-21 13:58] LABS: Hematocrit 23.4 % (35.0-49.0); Hemoglobin 7.4 g/dL (12.0-15.0); Mean Corpuscular HGB Conc 31.6 g/dL (32-36); Mean Corpuscular Volume 94.7 fL (78.0-102.0); Mean Platelet Volume 13.4 fl (9.2-11.8); Platelet Count Result 33 K/mm3 (150-420); Red Blood Count 2.47 M/mm3 (4.20-5.40); Red Cell Distribution Width 21.2 % (11.6-14.4)
--- OUTSIDE RECORDS SUMMARY | 2025-02-21 13:58 | XMS_ITS ---
Author Organization Unknown Address [address] [place] [phone] Phone Care Team Providers Care Professor Of Exercise Science Name Role Phone JOHAN SULLIVAN Attending Unavailable Immunization Immunization Date Status Additional Notes Code Code System Tdap 03/26/2021 Completed 115 CVX Results CBC W/ DIFF - Collect Date/T sarah: 01/08/2025 13:23 [facility] ID: [id number] [address] [place] [address], [phone] LOINC: 61573-4 Test Value Unit Reference Range Code Code [...] H=36.0 L PLATELETS 43 10^3uL L=100 H=400 04938-0 LOINC L RDW 16.1 % L=11.7 H=15.5 H %GRAN L=40.0 H=70.0 10415-3 LOINC %LYMPH L=20.0 H=45.0 736-9 LOINC %MONO L=2.0 H=10.0 26528-3 LOINC %EOS L=0.0 H=6.0 713-8 LOINC %BASO L=0.0 H=3.0 706-2 LOINC #NEUT L=1.9 H=7.6 90723-5 LOINC #LYMPH L=0.9 H=4.9 52810-6 LOINC #MONO L=0.1 H=0.9 41072-7 LOINC #EOS L=0.0 H=0.6 712-0 LOINC #BASO L=0.00 H=0.10 88173-0 LOINC #IM GRANS L=0.0 H=7.0 56327-9 LOINC %IM GRANS L=0.0 H=5.0 32224-8 LOINC %NRB L=0.0 H=0.2 75665-3 LOINC #NRB L=0.000 H=0.012 45518-2 LOINC MANUAL DIFF SEE BELOW A SEG [...] L=0 H=0 BLASTS 0 % L=0 H=0 92465-9 LOINC PANDA LYMPHS 0.00 % L=0.00 H=5.00 SMUDGE CELLS 0 % L=0 H=0 NRBC 0.0 % L=0.0 H=0.0 PLTS DECREASED NEUT # 0.7 10^3uL L=1.9 H=7.6 LL LYMPH # 1.2 10^3uL L=0.9 H=4.9 MONO # 0.0 10^3uL L=0.1 H=0.9 L EOS # 0.1 10^3uL L=0.0 H=0.6 712-0 LOINC BASO # 0.0 10^3uL L=0.0 H=0.1 75489-5 LOINC RBC MORPH NOT INDICATED COMPREHENSIVE METABOLIC PANE L - Collect Date/Time: 01/08/2025 13:23 [facility] ID: [id number] [address] [place], [place], [phone] LOINC: 74353-9 Test Value Unit Reference Range Code Code [...] 2028-9 LOINC ANION GAP 10 L=10 H=20 37680-0 LOINC OSMOLALITY 288 mOs/kG L=280 H=296 78156-1 LOINC BUN/CREAT 13.3 3097-3 LOINC CALCIUM 8.9 mg/dL L=8.3 H=10.5 36064-6 LOINC AST 23 U/L L=15 H=46 1920-8 LOINC ALT 15 U/L L=9 H=72 1742-6 LOINC ALKALINE PHOS 61 U/L L=38 H=126 6768-6 LOINC TOTAL BILI 0.3 mg/dL L=0.2 H=1.3 1975-2 LOINC ALBUMIN 3.9 G/dL L=3.5 H=5.0 1751-7 LOINC TOTAL PROTEIN 7.6 g/L L=6.3 H=8.2 2885-2 LOINC A/G RATIO 1.1 82625-7 LOINC AGE 59 47404-6 LOINC eGFR NON-AFR 69 ml/min eGFR AFR AMER 83 ml/min Social History Type Status Start Date End Date Code Code Syst em Smoking History Unknown if ever smoked [address] Sex Female Hospital Discharge Instructions [...]
--- OUTSIDE RECORDS SUMMARY | 2025-02-21 13:58 | XMS_ITS ---
Author Organization Unknown Address [address] [place] [address] [phone] Phone Care Team Providers Care Metal Casket Maker Name Role Phone JOHAN SULLIVAN Attending Unavailable Immunization Immunization Date Status Additional Notes Code Code System Tdap 03/26/2021 Completed 115 CVX Results US GALLBLADDER - Completed: 12/25/2024 12:00 LOINC: \TM00\\12PI\\DRAo\\BM09\ \MRHo\ [address] [address] ---------NAME--------- NUMBER SEX AGE ADMIT DISC. XRAY# F/C TYPE CHUYITA TONY [id number] F 59 12/25/24 12/25/24 81448 MBJ O/P DATE OF : 1965 M/R# [id number] PH#: [phone] RM \MRHx\ LOCATION: TRANSCRIBED: 12/25/24 13:39 US GALLBLADDER [id number] COMPLETED:12/25/24 12:00 APC 75517 {REASON-US ABD: ABDOMINAL PAIN PHYSICIAN: JOHAN R [...] of gallstones or acute cholecystitis. Hepatic steatosis. TECHNOLOGIST \ITLo\ \UNDo\ \UNDx\ \ITLx\ Reviewed and Electronically Signed by: Ivan Acosta MD Signed Date: 12/25/24 13:39 Social History Type Status Start Date End Date Code Code Syst em Smoking History Unknown if ever smoked [address] Sex Female Hospital Discharge Instructions [...] - Primary care physician Imaging Narrative Notes [facility] 12/25/2024 13:[address] [address] ---------NAME--------- NUMBER SEX AGE ADMIT DISC. XRAY# F/C TYPE CHUYITA TONY [id number] F 59 12/25/24 12/25/24 24135 MBJ O/P DATE OF : 1965 M/R# [id number] #: [id number] LOCATION: TRANSCRIBED: 12/25/24 13:39 US GALLBLADDER [id number] COMPLETED:12/25/24 12:00 APC 64253 {REASON-US ABD: ABDOMINAL PAIN PHYSICIAN: JOHAN RADIOLOGY [...] of gallstones or acute cholecystitis. Hepatic steatosis. TECHNOLOGIST Reviewed and Electronically Signed by: Ivan Acosta MD Signed Date: 12/25/24 13:39
[2025-02-21] MEDS: DECITABINE IVPB (14:00)
[2025-02-21 14:13] LABS: Alanine Aminotransferase 12 U/L (6-35); Albumin Level 3.6 g/dL (3.5-5.1); Alkaline Phosphatase 63 U/L (38-126); Anion Gap 4 mmol/L (4-12); Aspartate Amino Transferase 19 U/L (14-36); Bilirubin,Total 0.4 mg/dL (0.2-1.3); Blood Urea Nitrogen 15 mg/dL (7-17); Calcium 8.2 mg/dL (8.4-10.2); Carbon Dioxide 26 mmol/L (22-30); Chloride 108 mmol/L (98-107); Estimated CRCL calculation 85 ml/min; Estimated Glomerular Filt Rate > 60; Glucose 150 mg/dL (65-110); Osmolality Calculated 289 mOsm/kg (285-295); Potassium 3.7 mmol/L (3.4-5.0); Sodium 138 mmol/L (137-145); Total Protein 6.6 g/dL (6.3-8.2)
[2025-02-21 14:20] LABS: White Blood Count 1.5 K/mm3 (4.8-10.8)
[2025-02-21 14:21] LABS: Immature Platelet Fraction Pct 8.6 % (1.0-7.0)
[2025-02-21 15:01] LABS: Band Neutrophils Percent 0 % (0-6); Lymphocytes Absolute Manual 1.05 K/mm3 (1.1-4.5); Lymphocytes Percent Manual 70 % (18-44); Neutrophils Percent Manual 22 % (46-73); Total Cells Counted 100
[2025-02-21 15:02] LABS: Anisocytosis 2+; Basophils Absolute Manual 0.01 K/mm3 (0-0.1); Basophils Percent Manual 1 % (0-1); Eosinophils Absolute Manual 0.04 K/mm3 (0.02-0.50); Eosinophils Percent Manual 3 % (1-6); Monocytes Absolute Manual 0.06 K/mm3 (0.1-0.90); Monocytes Percent Manual 4 % (3-9); Schistocytes None Seen
[2025-02-21 15:03] LABS: Hypochromasia 3+; Platelet Estimate Decreased (Adequate); Poikilocytosis 1+
[2025-02-21 15:09] LABS: Neutrophils Absolute Manual 0.33 K/mm3 (1.3-6.7)
[2025-02-21 15:22] VITALS: BP 125/66; PULSE 78; RESP 14; O2SAT 96
[2025-02-21] MEDS: HEPARIN SODIUM LOCK FLUSH 500 UNITS/5 ML SYRINGE IV PUSH (15:24)
--- NOTE | 2025-02-21 15:25 | PC.NURSE ---
Patient tolerated treatment well. SEE MAR/patient care notes.
== END 2025-02-21 13:20 | disposition home or self-care (01) ==
PROVIDERS: PCP Family Medicine; Visit Provider Internal Medicine Hematology
DX: D46.21 Refractory anemia with excess of blasts 1 (principal)
CPT/HCPCS: 36415; 36591; 80053; 85025; 85055; 86850; 86900; 86901; 96367; 96413; J0894; J2405; J7050

== ENCOUNTER 2025-02-22 13:15 | Outpatient (CLI) | payer MEDICARE, SELFPAY ==
--- OUTSIDE RECORDS SUMMARY | 2025-02-22 13:18 | XMS_ITS ---
Author Organization Unknown Address [address] [place] [address] [phone] Phone Care Team Providers Care Spareribs Trimmer Name Role Phone PIPPA BURCIAGAWade Attending Unavailable JOHAN SULLIVAN Primary Unavailable Immunization Immunization Date Status Additional Notes Code Code System Tdap 03/26/2021 Completed 115 CVX Results CBC W/ DIFF - Collect Date/T sarah: 01/23/2025 14:13 [facility] ID: [id number] [address] [place] [address], [id number] LOINC: 64624-0 Test Value Unit Reference Range Code Code [...] H=36.0 L PLATELETS 32 10^3uL L=100 H=400 76549-0 LOINC L RDW 17.1 % L=11.7 H=15.5 H %GRAN L=40.0 H=70.0 68886-4 LOINC %LYMPH L=20.0 H=45.0 736-9 LOINC %MONO L=2.0 H=10.0 71802-8 LOINC %EOS L=0.0 H=6.0 713-8 LOINC %BASO L=0.0 H=3.0 706-2 LOINC #NEUT L=1.9 H=7.6 56493-9 LOINC CALLED TO: CHRISTOPH MÁRQUEZ AT: 1448 01/23/25 BY: SDK #LYMPH L=0.9 H=4.9 12101-0 LOINC #MONO L=0.1 H=0.9 44512-4 LOINC #EOS L=0.0 H=0.6 712-0 LOINC #BASO L=0.00 H=0.10 63883-6 LOINC #IM GRANS L=0.0 H=7.0 87656-7 LOINC %IM GRANS L=0.0 H=5.0 63437-2 LOINC %NRB L=0.0 H=0.2 58519-0 LOINC #NRB L=0.000 H=0.012 73308-5 LOINC MANUAL DIFF SEE BELOW A SEG [...] L=0 H=0 BLASTS 0 % L=0 H=0 25480-0 LOINC PANDA LYMPHS 10.00 % L=0.00 H=5.00 H SMUDGE CELLS 0 % L=0 H=0 NRBC 0.0 % L=0.0 H=0.0 PLTS DECREASED NEUT # 0.6 10^3uL L=1.9 H=7.6 LL LYMPH # 1.0 10^3uL L=0.9 H=4.9 MONO # 0.1 10^3uL L=0.1 H=0.9 EOS # 0.1 10^3uL L=0.0 H=0.6 712-0 LOINC BASO # 0.0 10^3uL L=0.0 H=0.1 24580-6 LOINC RBC MORPH NOT INDICATED COMPREHENSIVE METABOLIC PANE L - Collect Date/Time: 01/23/2025 14:13 [facility] ID: [id number] [address] [place], [place], [phone] LOINC: 96257-6 Test Value Unit Reference Range Code Code [...] 2028-9 LOINC ANION GAP 9 L=10 H=20 74578-7 LOINC L OSMOLALITY 291 mOs/kG L=280 H=296 30751-8 LOINC BUN/CREAT 13.8 3097-3 LOINC CALCIUM 8.7 mg/dL L=8.3 H=10.5 97462-6 LOINC AST 20 U/L L=15 H=46 1920-8 LOINC ALT 12 U/L L=9 H=72 1742-6 LOINC ALKALINE PHOS 71 U/L L=38 H=126 6768-6 LOINC TOTAL BILI 0.2 mg/dL L=0.2 H=1.3 1975-2 LOINC ALBUMIN 3.7 G/dL L=3.5 H=5.0 1751-7 LOINC TOTAL PROTEIN 6.8 g/L L=6.3 H=8.2 2885-2 LOINC A/G RATIO 1.2 28497-4 LOINC AGE 59 37086-7 LOINC eGFR NON-AFR 79 ml/min eGFR AFR AMER 96 ml/min BB ABO AND RH TYPE - Collect Date/Time: 01/23/2025 14:13 [facility] ID: [id number] [address] [place], [place], [phone] LOINC: 99277-5 Test Value Unit Reference Range Code Code System Flag ABO TYPE A 883-9 LOINC RH TYPE POSITIVE BB RETYPE ABO AND RH TYPE - Collect Date/Time: 01/23/2025 14:13 [facility] ID: [id number] [address] [place], [place], [phone] LOINC: 77423-6 Test Value Unit Reference Range Code Code System Flag ABO TYPE A 883-9 LOINC RH TYPE POSITIVE Social History Type Status Start Date End Date Code Code Syst em Smoking History Unknown if ever smoked [address] Sex Female Hospital Discharge Instructions [...]
--- OUTSIDE RECORDS SUMMARY | 2025-02-22 13:18 | XMS_ITS ---
Author Organization Unknown Address [address] [place] [address] [phone] Phone Care Team Providers Care Link Trainer Teacher Name Role Phone PIPPA GREGORIONISHA Attending Unavailable JOHAN SULLIVAN Primary Unavailable Immunization Immunization Date Status Additional Notes Code Code System Tdap 03/26/2021 Completed 115 CVX Social History Type Status Start Date End Date Code Code Syst em Smoking History Unknown if ever smoked [address] Sex Female Vital Signs Vital Sign Value Unit Hidalgo Value Hidalgo Unit Date/Time Recent/Initial? Code Code System Body Mass Index 34.97 kg/m2 02/04/2025 09:56 Initial 82918 -5 [facility] Systolic Blood Pressure 168 mm[Hg] 02/04/2025 09:53 Initial 8480- 6 LOINC Diastolic Blood Pressure 73 mm[Hg] 02/04/2025 09:53 Initial 8462- 4 INC Body Surface Area 2.24 m2 02/04/2025 09:56 Initial 3140- 1 LOINC Height 172.720 0 cm 68.00 in 02/04/2025 09:56 Initial 8302- 2 LOINC O2 Saturation 100 % 2024 09:53 Initial 40484 -5 [facility] Pulse 99.0 /min 02/04/2025 09:53 Initial 8867- 4 LOINC Respiration 22 /min 02/05/20 09:53 Initial 9279- 1 LOINC Temperature 36.3 Freda 97.3 F 02/05/20 09:53 Initial 8310- 5 LOINC Weight 104.33 kg 230.00 lbs 02/04/2025 09:56 Initial 09840 -7 INC Hospital Discharge Instructions Should you [...]
--- OUTSIDE RECORDS SUMMARY | 2025-02-22 13:19 | XMS_ITS ---
Author Organization Unknown Address [address] [place] [phone] Phone Care Team Providers Care Traffic Maintenance Officer Name Role Phone JOHAN SULLIVAN Attending Unavailable Immunization Immunization Date Status Additional Notes Code Code System Tdap 03/26/2021 Completed 115 CVX Results CBC W/ DIFF - Collect Date/T sarah: 01/08/2025 13:23 [facility] ID: [id number] [address] [place] [address], [phone] LOINC: 80417-5 Test Value Unit Reference Range Code Code [...] H=36.0 L PLATELETS 43 10^3uL L=100 H=400 05117-0 LOINC L RDW 16.1 % L=11.7 H=15.5 H %GRAN L=40.0 H=70.0 52901-5 LOINC %LYMPH L=20.0 H=45.0 736-9 LOINC %MONO L=2.0 H=10.0 41983-1 LOINC %EOS L=0.0 H=6.0 713-8 LOINC %BASO L=0.0 H=3.0 706-2 LOINC #NEUT L=1.9 H=7.6 44686-9 LOINC #LYMPH L=0.9 H=4.9 26072-1 LOINC #MONO L=0.1 H=0.9 29107-0 LOINC #EOS L=0.0 H=0.6 712-0 LOINC #BASO L=0.00 H=0.10 61741-9 LOINC #IM GRANS L=0.0 H=7.0 07489-4 LOINC %IM GRANS L=0.0 H=5.0 00455-9 LOINC %NRB L=0.0 H=0.2 12816-3 LOINC #NRB L=0.000 H=0.012 41588-5 LOINC MANUAL DIFF SEE BELOW A SEG [...] L=0 H=0 BLASTS 0 % L=0 H=0 87416-4 LOINC PANDA LYMPHS 0.00 % L=0.00 H=5.00 SMUDGE CELLS 0 % L=0 H=0 NRBC 0.0 % L=0.0 H=0.0 PLTS DECREASED NEUT # 0.7 10^3uL L=1.9 H=7.6 LL LYMPH # 1.2 10^3uL L=0.9 H=4.9 MONO # 0.0 10^3uL L=0.1 H=0.9 L EOS # 0.1 10^3uL L=0.0 H=0.6 712-0 LOINC BASO # 0.0 10^3uL L=0.0 H=0.1 72128-7 LOINC RBC MORPH NOT INDICATED COMPREHENSIVE METABOLIC PANE L - Collect Date/Time: 01/08/2025 13:23 [facility] ID: [id number] [place], [place], [id number] LOINC: 98481-4 Test Value Unit Reference Range Code Code [...] 2028-9 LOINC ANION GAP 10 L=10 H=20 78933-1 LOINC OSMOLALITY 288 mOs/kG L=280 H=296 27015-3 LOINC BUN/CREAT 13.3 3097-3 LOINC CALCIUM 8.9 mg/dL L=8.3 H=10.5 87173-3 LOINC AST 23 U/L L=15 H=46 1920-8 LOINC ALT 15 U/L L=9 H=72 1742-6 LOINC ALKALINE PHOS 61 U/L L=38 H=126 6768-6 LOINC TOTAL BILI 0.3 mg/dL L=0.2 H=1.3 1975-2 LOINC ALBUMIN 3.9 G/dL L=3.5 H=5.0 1751-7 LOINC TOTAL PROTEIN 7.6 g/L L=6.3 H=8.2 2885-2 LOINC A/G RATIO 1.1 01459-0 LOINC AGE 59 45374-9 LOINC eGFR NON-AFR 69 ml/min eGFR AFR AMER 83 ml/min Social History Type Status Start Date End Date Code Code Syst em Smoking History Unknown if ever smoked [id number] Sex Female Hospital Discharge Instructions [...]
--- OUTSIDE RECORDS SUMMARY | 2025-02-22 13:19 | XMS_ITS ---
Author Organization Unknown Address [address] [place] [address] [phone] Phone Care Team Providers Care Bulk Loader Name Role Phone JOHAN SULLIVAN Attending Unavailable Immunization Immunization Date Status Additional Notes Code Code System Tdap 03/26/2021 Completed 115 CVX Results US GALLBLADDER - Completed: 12/25/2024 12:00 LOINC: \TM00\\12PI\\DRAo\\BM09\ \MRHo\ [address] [address] ---------NAME--------- NUMBER SEX AGE ADMIT DISC. XRAY# F/C TYPE CHUYITA TONY [id number] F 59 12/25/24 12/25/24 98363 MBJ O/P DATE OF : 1965 M/R# [id number] PH#: [phone] RM \MRHx\ LOCATION: TRANSCRIBED: 12/25/24 13:39 US GALLBLADDER 79703 COMPLETED:12/25/24 12:00 APC 82570 {REASON-US ABD: ABDOMINAL PAIN PHYSICIAN: JOHAN R [...] of gallstones or acute cholecystitis. Hepatic steatosis. NKLER FITTER \ITLo\ \UNDo\ \UNDx\ \ITLx\ Reviewed and Electronically Signed by: Ivan Acosta MD Signed Date: 12/25/24 13:39 Social History Type Status Start Date End Date Code Code Syst em Smoking History Unknown if ever smoked [id number] Sex Female Hospital Discharge Instructions [...] - Primary care physician Imaging Narrative Notes [facility] 12/25/2024 13:[address] [address] ---------NAME--------- NUMBER SEX AGE ADMIT DISC. XRAY# F/C TYPE CHUYITA TONY [id number] F 59 12/25/24 12/25/24 69822 MBJ O/P DATE OF : 1965 M/R# [id number] #: [id number] LOCATION: TRANSCRIBED: 12/25/24 13:39 US GALLBLADDER 47116 COMPLETED:12/25/24 12:00 APC 84512 {REASON-US ABD: ABDOMINAL PAIN PHYSICIAN: JOHAN RADIOLOGY [...] of gallstones or acute cholecystitis. Hepatic steatosis. NKLER FITTER Reviewed and Electronically Signed by: Ivan Acosta MD Signed Date: 12/25/24 13:39
[2025-02-22 13:28] VITALS: BP 133/70; PULSE 80; RESP 16; TEMP 36.5; O2SAT 97; BMI 32.2
[2025-02-22] MEDS: SODIUM CHLORIDE 0.9% IVPB ×2 (13:45→14:15)
[2025-02-22] MEDS: ONDANSETRON IVPB (13:45)
[2025-02-22] MEDS: DECITABINE IVPB (14:15)
[2025-02-22] MEDS: HEPARIN SODIUM LOCK FLUSH 500 UNITS/5 ML SYRINGE IV PUSH (15:15)
[2025-02-22 15:16] VITALS: BP 127/74; PULSE 72; RESP 16; TEMP 36.6; O2SAT 97
--- NOTE | 2025-02-22 15:30 | PC.NURSE ---
Tolerated treatment well. see MAR /patient care notes.
== END 2025-02-22 13:16 | disposition home or self-care (01) ==
PROVIDERS: PCP Family Medicine; Visit Provider Internal Medicine Hematology
DX: D46.21 Refractory anemia with excess of blasts 1 (principal)
CPT/HCPCS: 96367; 96413; J0894; J2405; J7050

== ENCOUNTER 2025-02-25 08:28 | Outpatient (CLI) | payer MEDICARE, SELFPAY ==
[2025-02-25] VITALS (7 sets, daily range): BP systolic 122–142; BP diastolic 60–71; PULSE 72–80; RESP 14–16; TEMP 36.4–36.6; O2SAT 96–97; BMI 32.2
[2025-02-25 08:50] LABS: Hematocrit 22.4 % (35.0-49.0); Immature Platelet Fraction Pct 8.6 % (1.0-7.0); Mean Corpuscular HGB Conc 30.8 g/dL (32-36); Mean Corpuscular Hemoglobin 29.6 pg (27.0-31.0); Mean Corpuscular Volume 96.1 fL (78.0-102.0); Platelet Count Result 26 K/mm3 (150-420); Red Blood Count 2.33 M/mm3 (4.20-5.40); Red Cell Distribution Width 20.4 % (11.6-14.4)
--- OUTSIDE RECORDS SUMMARY | 2025-02-25 08:50 | XMS_ITS ---
Author Organization Unknown Address [address] [place] [address] [phone] Phone Care Team Providers Care Form Layer Name Role Phone PIPPA GREGORIONISHA Attending Unavailable JOHAN SULLIVAN Primary Unavailable Immunization Immunization Date Status Additional Notes Code Code System Tdap 03/26/2021 Completed 115 CVX Social History Type Status Start Date End Date Code Code Syst em Smoking History Unknown if ever smoked [address] Sex Female Vital Signs Vital Sign Value Unit [place] Value [place] Unit Date/Time Recent/Initial? Code Code System Body Mass Index 34.97 kg/m2 02/04/2025 09:56 Initial 15746 -5 [facility] Systolic Blood Pressure 168 mm[Hg] 02/04/2025 09:53 Initial 8480- 6 LOINC Diastolic Blood Pressure 73 mm[Hg] 02/04/2025 09:53 Initial 8462- 4 INC Body Surface Area 2.24 m2 02/04/2025 09:56 Initial 3140- 1 LOINC Height 172.720 0 cm 68.00 in 02/04/2025 09:56 Initial 8302- 2 LOINC O2 Saturation 100 % 2024 09:53 Initial 63496 -5 INC Pulse 99.0 /min 02/04/2025 09:53 Initial 8867- 4 LOINC Respiration 22 /min 02/05/20 09:53 Initial 9279- 1 LOINC Temperature 36.3 Freda 97.3 F 02/05/20 09:53 Initial 8310- 5 LOINC Weight 104.33 kg 230.00 lbs 02/04/2025 09:56 Initial 84741 -7 INC Hospital Discharge Instructions Should you [...]
--- OUTSIDE RECORDS SUMMARY | 2025-02-25 08:51 | XMS_ITS ---
Author Organization Unknown Address [address] [place] [address] [phone] Phone Care Team Providers Care Cena Name Role Phone JOHAN SULLIVAN Attending Unavailable Immunization Immunization Date Status Additional Notes Code Code System Tdap 03/26/2021 Completed 115 CVX Results CBC W/ DIFF - Collect Date/T sarah: 01/08/2025 13:23 [facility] ID: [id number] [place] [address], [phone] LOINC: 50616-3 Test Value Unit Reference Range Code Code [...] H=36.0 L PLATELETS 43 10^3uL L=100 H=400 79686-3 LOINC L RDW 16.1 % L=11.7 H=15.5 H %GRAN L=40.0 H=70.0 91826-5 LOINC %LYMPH L=20.0 H=45.0 736-9 LOINC %MONO L=2.0 H=10.0 75311-8 LOINC %EOS L=0.0 H=6.0 713-8 LOINC %BASO L=0.0 H=3.0 706-2 LOINC #NEUT L=1.9 H=7.6 15419-3 LOINC #LYMPH L=0.9 H=4.9 93799-1 LOINC #MONO L=0.1 H=0.9 53853-8 LOINC #EOS L=0.0 H=0.6 712-0 LOINC #BASO L=0.00 H=0.10 37421-3 LOINC #IM GRANS L=0.0 H=7.0 84692-2 LOINC %IM GRANS L=0.0 H=5.0 60687-6 LOINC %NRB L=0.0 H=0.2 46704-4 LOINC #NRB L=0.000 H=0.012 83785-7 LOINC MANUAL DIFF SEE BELOW A SEG [...] L=0 H=0 BLASTS 0 % L=0 H=0 80959-7 LOINC PANDA LYMPHS 0.00 % L=0.00 H=5.00 SMUDGE CELLS 0 % L=0 H=0 NRBC 0.0 % L=0.0 H=0.0 PLTS DECREASED NEUT # 0.7 10^3uL L=1.9 H=7.6 LL LYMPH # 1.2 10^3uL L=0.9 H=4.9 MONO # 0.0 10^3uL L=0.1 H=0.9 L EOS # 0.1 10^3uL L=0.0 H=0.6 712-0 LOINC BASO # 0.0 10^3uL L=0.0 H=0.1 37397-4 LOINC RBC MORPH NOT INDICATED COMPREHENSIVE METABOLIC PANE L - Collect Date/Time: 01/08/2025 13:23 [facility] ID: [id number] [address] [place], [place], [id number] LOINC: 10361-7 Test Value Unit Reference Range Code Code [...] 2028-9 LOINC ANION GAP 10 L=10 H=20 23514-4 LOINC OSMOLALITY 288 mOs/kG L=280 H=296 86830-6 LOINC BUN/CREAT 13.3 3097-3 LOINC CALCIUM 8.9 mg/dL L=8.3 H=10.5 50827-7 LOINC AST 23 U/L L=15 H=46 1920-8 LOINC ALT 15 U/L L=9 H=72 1742-6 LOINC ALKALINE PHOS 61 U/L L=38 H=126 6768-6 LOINC TOTAL BILI 0.3 mg/dL L=0.2 H=1.3 1975-2 LOINC ALBUMIN 3.9 G/dL L=3.5 H=5.0 1751-7 LOINC TOTAL PROTEIN 7.6 g/L L=6.3 H=8.2 2885-2 LOINC A/G RATIO 1.1 74251-9 LOINC AGE 59 87292-3 LOINC eGFR NON-AFR 69 ml/min eGFR AFR AMER 83 ml/min Social History Type Status Start Date End Date Code Code Syst em Smoking History Unknown if ever smoked [address] Sex Female Hospital Discharge Instructions [...]
--- OUTSIDE RECORDS SUMMARY | 2025-02-25 08:51 | XMS_ITS ---
Author Organization Unknown Address [address] [place] [address] [phone] Phone Care Team Providers Care Floral Manager Name Role Phone PIPPA BURCIAGAWade Attending Unavailable JOHAN SULLIAVN Primary Unavailable Immunization Immunization Date Status Additional Notes Code Code System Tdap 03/26/2021 Completed 115 CVX Results CBC W/ DIFF - Collect Date/T sarah: 01/23/2025 14:13 [facility] ID: [id number] [address] [place] [address], [phone] LOINC: 73806-9 Test Value Unit Reference Range Code Code [...] H=36.0 L PLATELETS 32 10^3uL L=100 H=400 07037-0 LOINC L RDW 17.1 % L=11.7 H=15.5 H %GRAN L=40.0 H=70.0 58485-7 LOINC %LYMPH L=20.0 H=45.0 736-9 LOINC %MONO L=2.0 H=10.0 08468-8 LOINC %EOS L=0.0 H=6.0 713-8 LOINC %BASO L=0.0 H=3.0 706-2 LOINC #NEUT L=1.9 H=7.6 27626-6 LOINC CALLED TO: CHRISTOPH BillingsleyHONORIO AT: 1448 01/23/25 BY: SDK #LYMPH L=0.9 H=4.9 94217-6 LOINC #MONO L=0.1 H=0.9 41403-2 LOINC #EOS L=0.0 H=0.6 712-0 LOINC #BASO L=0.00 H=0.10 66489-9 LOINC #IM GRANS L=0.0 H=7.0 28212-6 LOINC %IM GRANS L=0.0 H=5.0 63225-1 LOINC %NRB L=0.0 H=0.2 73877-2 LOINC #NRB L=0.000 H=0.012 84873-1 LOINC MANUAL DIFF SEE BELOW A SEG [...] L=0 H=0 BLASTS 0 % L=0 H=0 37581-6 LOINC PANDA LYMPHS 10.00 % L=0.00 H=5.00 H SMUDGE CELLS 0 % L=0 H=0 NRBC 0.0 % L=0.0 H=0.0 PLTS DECREASED NEUT # 0.6 10^3uL L=1.9 H=7.6 LL LYMPH # 1.0 10^3uL L=0.9 H=4.9 MONO # 0.1 10^3uL L=0.1 H=0.9 EOS # 0.1 10^3uL L=0.0 H=0.6 712-0 LOINC BASO # 0.0 10^3uL L=0.0 H=0.1 00128-8 LOINC RBC MORPH NOT INDICATED COMPREHENSIVE METABOLIC PANE L - Collect Date/Time: 01/23/2025 14:13 [facility] ID: [id number] [address] [place], [place], [phone] LOINC: 11913-9 Test Value Unit Reference Range Code Code [...] 2028-9 LOINC ANION GAP 9 L=10 H=20 37018-4 LOINC L OSMOLALITY 291 mOs/kG L=280 H=296 10131-5 LOINC BUN/CREAT 13.8 3097-3 LOINC CALCIUM 8.7 mg/dL L=8.3 H=10.5 09488-6 LOINC AST 20 U/L L=15 H=46 1920-8 LOINC ALT 12 U/L L=9 H=72 1742-6 LOINC ALKALINE PHOS 71 U/L L=38 H=126 6768-6 LOINC TOTAL BILI 0.2 mg/dL L=0.2 H=1.3 1975-2 LOINC ALBUMIN 3.7 G/dL L=3.5 H=5.0 1751-7 LOINC TOTAL PROTEIN 6.8 g/L L=6.3 H=8.2 2885-2 LOINC A/G RATIO 1.2 85699-6 LOINC AGE 59 50627-8 LOINC eGFR NON-AFR 79 ml/min eGFR AFR AMER 96 ml/min BB ABO AND RH TYPE - Collect Date/Time: 01/23/2025 14:13 [facility] ID: [id number] [address] [place], [place], [phone] LOINC: 94296-4 Test Value Unit Reference Range Code Code System Flag ABO TYPE A 883-9 LOINC RH TYPE POSITIVE BB RETYPE ABO AND RH TYPE - Collect Date/Time: 01/23/2025 14:13 [facility] ID: [id number] [address] [place], [place], [phone] LOINC: 79081-5 Test Value Unit Reference Range Code Code System Flag ABO TYPE A 883-9 LOINC RH TYPE POSITIVE Social History Type Status Start Date End Date Code Code Syst em Smoking History Unknown if ever smoked [address] Sex Female Hospital Discharge Instructions [...]
[2025-02-25 08:59] LABS: Hemoglobin 6.9 g/dL (12.0-15.0); White Blood Count 1.1 K/mm3 (4.8-10.8)
[2025-02-25 09:19] LABS: Alanine Aminotransferase 15 U/L (6-35); Albumin Level 3.5 g/dL (3.5-5.1); Alkaline Phosphatase 64 U/L (38-126); Anion Gap 6 mmol/L (4-12); Aspartate Amino Transferase 20 U/L (14-36); Bilirubin,Total 0.4 mg/dL (0.2-1.3); Blood Urea Nitrogen 12 mg/dL (7-17); Calcium 8.3 mg/dL (8.4-10.2); Carbon Dioxide 28 mmol/L (22-30); Chloride 106 mmol/L (98-107); Estimated CRCL calculation 78 ml/min; Estimated Glomerular Filt Rate > 60; Glucose 156 mg/dL (65-110); Osmolality Calculated 292 mOsm/kg (285-295); Potassium 3.5 mmol/L (3.4-5.0); Sodium 140 mmol/L (137-145); Total Protein 6.5 g/dL (6.3-8.2)
[2025-02-25 09:25] LABS: Anisocytosis 2+; Band Neutrophils Percent 0 % (0-6); Basophils Absolute Manual 0.01 K/mm3 (0-0.1); Basophils Percent Manual 1 % (0-1); Eosinophils Absolute Manual 0.06 K/mm3 (0.02-0.50); Eosinophils Percent Manual 6 % (1-6); Lymphocytes Absolute Manual 0.58 K/mm3 (1.1-4.5); Lymphocytes Percent Manual 53 % (18-44); Monocytes Absolute Manual 0.04 K/mm3 (0.1-0.90); Monocytes Percent Manual 4 % (3-9); Neutrophils Percent Manual 36 % (46-73); Platelet Estimate Decreased (Adequate); Total Cells Counted 100
[2025-02-25 09:26] LABS: Hyperchromasia 3+; Schistocytes None Seen
[2025-02-25 09:28] LABS: Neutrophils Absolute Manual 0.39 K/mm3 (1.3-6.7)
[2025-02-25] MEDS: SODIUM CHLORIDE 0.9% IVPB ×2 (10:10→10:40)
[2025-02-25] MEDS: ONDANSETRON IVPB (10:10)
[2025-02-25] MEDS: DECITABINE IVPB (10:40)
--- NOTE | 2025-02-25 11:40 | PC.NURSE ---
0950 Lab results called to Dr. Mar. Ok' to proceed with treatment. New order to type and cross and transfuse 1 unit of PRBC's today.
[2025-02-25] MEDS: SODIUM CHLORIDE 0.9% IV 250 ML 10 ML IVPB (11:50)
--- NOTE | 2025-02-25 12:03 | PC.NURSE ---
1140 Decitabine treatment completed. Patient tolerated well. Assist to bathroom and back. 1155 Blood consent signed. Education given. No concerns voiced. 1 unit of PRBC's started. Rate 60 ml/hr. SEE TAR.
[2025-02-25] MEDS: HEPARIN SODIUM LOCK FLUSH 500 UNITS/5 ML SYRINGE IV PUSH (14:41)
--- NOTE | 2025-02-25 14:48 | PC.NURSE ---
1230 No s/sx of transfusion reaction noted or reported. Up rate 100 ml/hr. 1300 No S/sx of transfusion reaction noted or reported. Up rate to 125 ml/hr. 1330 Tolerated infusion well. Up rate to 150 ml/hr. 1415 1 unit of PRBC's completed. Normal saline infusing.
--- NOTE | 2025-02-25 14:54 | PC.NURSE ---
Tolerated Decitabine infusion and blood transfusion well. SEE MAR/TAR/patient care notes.
[2025-02-25 15:02] LABS: Hematocrit 22.4 % (35.0-49.0); Hemoglobin 7.1 g/dL (12.0-15.0)
== END 2025-02-25 08:29 | disposition home or self-care (01) ==
PROVIDERS: PCP Family Medicine; Visit Provider Internal Medicine Hematology
DX: D46.21 Refractory anemia with excess of blasts 1 (principal)
CPT/HCPCS: 36415; 36430; 36591; 80053; 85014; 85018; 85025; 85055; 86850; 86900; 86901; 86923; 96367; 96413; J0894; J2405; J7050; P9016

== ENCOUNTER 2025-02-26 08:35 | Outpatient (CLI) | payer MEDICARE, SELFPAY ==
[2025-02-26 08:49] VITALS: BP 136/62; PULSE 74; RESP 16; TEMP 36.6; O2SAT 97; BMI 32.1
--- OUTSIDE RECORDS SUMMARY | 2025-02-26 08:51 | XMS_ITS ---
Author Organization Unknown Address [address] [place] [address] [phone] Phone Care Team Providers Care Animal Care Supervisor Name Role Phone PIPPA GREGORIONISHA Attending Unavailable JOHAN SULLIVAN Primary Unavailable Immunization Immunization Date Status Additional Notes Code Code System Tdap 03/26/2021 Completed 115 CVX Social History Type Status Start Date End Date Code Code Syst em Smoking History Unknown if ever smoked [address] Sex Female Vital Signs Vital Sign Value Unit Angel[place] Value Angelina Unit Date/Time Recent/Initial? Code Code System Body Mass Index 34.97 kg/m2 02/04/2025 09:56 Initial 32361 -5 [facility] Systolic Blood Pressure 168 mm[Hg] 02/04/2025 09:53 Initial 8480- 6 LOINC Diastolic Blood Pressure 73 mm[Hg] 02/04/2025 09:53 Initial 8462- 4 INC Body Surface Area 2.24 m2 02/04/2025 09:56 Initial 3140- 1 LOINC Height 172.720 0 cm 68.00 in 02/04/2025 09:56 Initial 8302- 2 LOINC O2 Saturation 100 % 2024 09:53 Initial 30271 -5 LOINC Pulse 99.0 /min 02/04/2025 09:53 Initial 8867- 4 LOINC Respiration 22 /min 02/05/20 09:53 Initial 9279- 1 LOINC Temperature 36.3 Freda 97.3 F 02/05/20 09:53 Initial 8310- 5 LOINC Weight 104.33 kg 230.00 lbs 02/04/2025 09:56 Initial 66912 -7 INC Hospital Discharge Instructions Should you [...]
--- OUTSIDE RECORDS SUMMARY | 2025-02-26 08:52 | XMS_ITS ---
Author Organization Unknown Address [address] [place] [phone] Phone Care Team Providers Care Program Manager Slp Name Role Phone JOHAN SULLIVAN Attending Unavailable Immunization Immunization Date Status Additional Notes Code Code System Tdap 03/26/2021 Completed 115 CVX Results CBC W/ DIFF - Collect Date/T sarah: 01/08/2025 13:23 [facility] ID: [id number] [address] [place], [place], [phone] LOINC: 96926-8 Test Value Unit Reference Range Code Code [...] H=36.0 L PLATELETS 43 10^3uL L=100 H=400 80294-6 LOINC L RDW 16.1 % L=11.7 H=15.5 H %GRAN L=40.0 H=70.0 92166-4 LOINC %LYMPH L=20.0 H=45.0 736-9 LOINC %MONO L=2.0 H=10.0 52049-6 LOINC %EOS L=0.0 H=6.0 713-8 LOINC %BASO L=0.0 H=3.0 706-2 LOINC #NEUT L=1.9 H=7.6 63761-0 LOINC #LYMPH L=0.9 H=4.9 77569-2 LOINC #MONO L=0.1 H=0.9 16816-6 LOINC #EOS L=0.0 H=0.6 712-0 LOINC #BASO L=0.00 H=0.10 59498-8 LOINC #IM GRANS L=0.0 H=7.0 72701-3 LOINC %IM GRANS L=0.0 H=5.0 16684-8 LOINC %NRB L=0.0 H=0.2 94034-3 LOINC #NRB L=0.000 H=0.012 02943-1 LOINC MANUAL DIFF SEE BELOW A SEG [...] L=0 H=0 BLASTS 0 % L=0 H=0 64181-6 LOINC PANDA LYMPHS 0.00 % L=0.00 H=5.00 SMUDGE CELLS 0 % L=0 H=0 NRBC 0.0 % L=0.0 H=0.0 PLTS DECREASED NEUT # 0.7 10^3uL L=1.9 H=7.6 LL LYMPH # 1.2 10^3uL L=0.9 H=4.9 MONO # 0.0 10^3uL L=0.1 H=0.9 L EOS # 0.1 10^3uL L=0.0 H=0.6 712-0 LOINC BASO # 0.0 10^3uL L=0.0 H=0.1 56600-0 LOINC RBC MORPH NOT INDICATED COMPREHENSIVE METABOLIC PANE L - Collect Date/Time: 01/08/2025 13:23 [facility] ID: [id number] [address] [place], [place], [phone] LOINC: 52832-7 Test Value Unit Reference Range Code Code [...] 2028-9 LOINC ANION GAP 10 L=10 H=20 54142-7 LOINC OSMOLALITY 288 mOs/kG L=280 H=296 35605-5 LOINC BUN/CREAT 13.3 3097-3 LOINC CALCIUM 8.9 mg/dL L=8.3 H=10.5 18423-1 LOINC AST 23 U/L L=15 H=46 1920-8 LOINC ALT 15 U/L L=9 H=72 1742-6 LOINC ALKALINE PHOS 61 U/L L=38 H=126 6768-6 LOINC TOTAL BILI 0.3 mg/dL L=0.2 H=1.3 1975-2 LOINC ALBUMIN 3.9 G/dL L=3.5 H=5.0 1751-7 LOINC TOTAL PROTEIN 7.6 g/L L=6.3 H=8.2 2885-2 LOINC A/G RATIO 1.1 40168-9 LOINC AGE 59 13300-2 LOINC eGFR NON-AFR 69 ml/min eGFR AFR AMER 83 ml/min Social History Type Status Start Date End Date Code Code Syst em Smoking History Unknown if ever smoked [address] Sex Female Hospital Discharge Instructions [...]
--- OUTSIDE RECORDS SUMMARY | 2025-02-26 08:53 | XMS_ITS ---
Author Organization Unknown Address [address] [place] [address] [phone] Phone Care Team Providers Care Firer Watertender Name Role Phone JOHAN SULLIVAN Attending Unavailable Immunization Immunization Date Status Additional Notes Code Code System Tdap 03/26/2021 Completed 115 CVX Results US GALLBLADDER - Completed: 12/25/2024 12:00 LOINC: \TM00\\12PI\\DRAo\\BM09\ \MRHo\ [address] [address] ---------NAME--------- NUMBER SEX AGE ADMIT DISC. XRAY# F/C TYPE CHUYITA TONY [id number] F 59 12/25/24 12/25/24 30210 MBJ O/P DATE OF : 1965 M/R# [id number] PH#: [phone] RM \MRHx\ LOCATION: TRANSCRIBED: 12/25/24 13:39 US GALLBLADDER 72754 COMPLETED:12/25/24 12:00 APC 96158 {REASON-US ABD: ABDOMINAL PAIN PHYSICIAN: JOHAN R [...] of gallstones or acute cholecystitis. Hepatic steatosis. RAISER \ITLo\ \UNDo\ \UNDx\ \ITLx\ Reviewed and Electronically Signed by: Ivan Acosta MD Signed Date: 12/25/24 13:39 Social History Type Status Start Date End Date Code Code Syst em Smoking History Unknown if ever smoked [address] Sex Female Hospital Discharge Instructions [...] - Primary care physician Imaging Narrative Notes [facility] 12/25/2024 13:[address] [address] ---------NAME--------- NUMBER SEX AGE ADMIT DISC. XRAY# F/C TYPE CHUYITA TONY [id number] F 59 12/25/24 12/25/24 38445 MBJ O/P DATE OF : 1965 M/R# [id number] #: [id number] LOCATION: TRANSCRIBED: 12/25/24 13:39 US GALLBLADDER 11093 COMPLETED:12/25/24 12:00 APC 48180 {REASON-US ABD: ABDOMINAL PAIN PHYSICIAN: JOHAN RADIOLOGY [...] of gallstones or acute cholecystitis. Hepatic steatosis. RAISER Reviewed and Electronically Signed by: Ivan Acosta MD Signed Date: 12/25/24 13:39
[2025-02-26] MEDS: SODIUM CHLORIDE 0.9% IVPB ×2 (09:00→09:22)
[2025-02-26] MEDS: ONDANSETRON IVPB (09:00)
[2025-02-26] MEDS: DECITABINE IVPB (09:22)
[2025-02-26] MEDS: HEPARIN SODIUM LOCK FLUSH 500 UNITS/5 ML SYRINGE IV PUSH (10:29)
[2025-02-26 10:49] VITALS: BP 135/73; PULSE 76; RESP 14; O2SAT 97
--- NOTE | 2025-02-26 10:51 | PC.NURSE ---
Tolerated cycle 1 day 4 decitabine treatment well. See MAR/patient care notes.
== END 2025-02-26 08:36 | disposition home or self-care (01) ==
PROVIDERS: PCP Family Medicine; Visit Provider Internal Medicine Hematology
DX: D46.21 Refractory anemia with excess of blasts 1 (principal)
CPT/HCPCS: 96367; 96413; J0894; J2405; J7050

== ENCOUNTER 2025-02-27 08:34 | Outpatient (CLI) | payer MEDICARE, SELFPAY ==
--- OUTSIDE RECORDS SUMMARY | 2025-02-27 08:55 | XMS_ITS ---
Author Organization Unknown Address [address] [place] [phone] Phone Care Team Providers Care Nuisance Wildlife Trapper Name Role Phone JOHAN SULLIVAN Attending Unavailable Immunization Immunization Date Status Additional Notes Code Code System Tdap 03/26/2021 Completed 115 CVX Results CBC W/ DIFF - Collect Date/T sarah: 01/08/2025 13:23 [facility] ID: [id number] [address] [place] [address], [id number] LOINC: 35228-5 Test Value Unit Reference Range Code Code [...] H=36.0 L PLATELETS 43 10^3uL L=100 H=400 39463-2 LOINC L RDW 16.1 % L=11.7 H=15.5 H %GRAN L=40.0 H=70.0 24026-0 LOINC %LYMPH L=20.0 H=45.0 736-9 LOINC %MONO L=2.0 H=10.0 58679-4 LOINC %EOS L=0.0 H=6.0 713-8 LOINC %BASO L=0.0 H=3.0 706-2 LOINC #NEUT L=1.9 H=7.6 19316-5 LOINC #LYMPH L=0.9 H=4.9 79079-2 LOINC #MONO L=0.1 H=0.9 37875-7 LOINC #EOS L=0.0 H=0.6 712-0 LOINC #BASO L=0.00 H=0.10 96329-8 LOINC #IM GRANS L=0.0 H=7.0 10165-7 LOINC %IM GRANS L=0.0 H=5.0 82091-5 LOINC %NRB L=0.0 H=0.2 61534-8 LOINC #NRB L=0.000 H=0.012 73657-8 LOINC MANUAL DIFF SEE BELOW A SEG [...] L=0 H=0 BLASTS 0 % L=0 H=0 71074-0 LOINC PANDA LYMPHS 0.00 % L=0.00 H=5.00 SMUDGE CELLS 0 % L=0 H=0 NRBC 0.0 % L=0.0 H=0.0 PLTS DECREASED NEUT # 0.7 10^3uL L=1.9 H=7.6 LL LYMPH # 1.2 10^3uL L=0.9 H=4.9 MONO # 0.0 10^3uL L=0.1 H=0.9 L EOS # 0.1 10^3uL L=0.0 H=0.6 712-0 LOINC BASO # 0.0 10^3uL L=0.0 H=0.1 72514-7 LOINC RBC MORPH NOT INDICATED COMPREHENSIVE METABOLIC PANE L - Collect Date/Time: 01/08/2025 13:23 [facility] ID: [id number] [address] [place], [place], [id number] LOINC: 94868-1 Test Value Unit Reference Range Code Code [...] 2028-9 LOINC ANION GAP 10 L=10 H=20 74442-4 LOINC OSMOLALITY 288 mOs/kG L=280 H=296 74491-0 LOINC BUN/CREAT 13.3 3097-3 LOINC CALCIUM 8.9 mg/dL L=8.3 H=10.5 80957-4 LOINC AST 23 U/L L=15 H=46 1920-8 LOINC ALT 15 U/L L=9 H=72 1742-6 LOINC ALKALINE PHOS 61 U/L L=38 H=126 6768-6 LOINC TOTAL BILI 0.3 mg/dL L=0.2 H=1.3 1975-2 LOINC ALBUMIN 3.9 G/dL L=3.5 H=5.0 1751-7 LOINC TOTAL PROTEIN 7.6 g/L L=6.3 H=8.2 2885-2 LOINC A/G RATIO 1.1 53640-5 LOINC AGE 59 35665-4 LOINC eGFR NON-AFR 69 ml/min eGFR AFR AMER 83 ml/min Social History Type Status Start Date End Date Code Code Syst em Smoking History Unknown if ever smoked [address] Sex Female Hospital Discharge Instructions [...]
--- OUTSIDE RECORDS SUMMARY | 2025-02-27 08:55 | XMS_ITS ---
Author Organization Unknown Address [address] [place] [phone] Phone Care Team Providers Care Craft Center Director Name Role Phone PIPPA KNOX Attending Unavailable JOHAN SULLIVAN Primary Unavailable Immunization Immunization Date Status Additional Notes Code Code System Tdap 03/26/2021 Completed 115 CVX Results CBC W/ DIFF - Collect Date/T sarah: 01/23/2025 14:13 [facility] ID: [id number] [address] [place] [address], [id number] LOINC: 49158-9 Test Value Unit Reference Range Code Code [...] H=36.0 L PLATELETS 32 10^3uL L=100 H=400 64377-9 LOINC L RDW 17.1 % L=11.7 H=15.5 H %GRAN L=40.0 H=70.0 58584-2 LOINC %LYMPH L=20.0 H=45.0 736-9 LOINC %MONO L=2.0 H=10.0 62675-2 LOINC %EOS L=0.0 H=6.0 713-8 LOINC %BASO L=0.0 H=3.0 706-2 LOINC #NEUT L=1.9 H=7.6 31934-9 LOINC CALLED TO: CHRISTOPH MÁRQUEZ AT: 1448 01/23/25 BY: SDK #LYMPH L=0.9 H=4.9 60293-0 LOINC #MONO L=0.1 H=0.9 99487-2 LOINC #EOS L=0.0 H=0.6 712-0 LOINC #BASO L=0.00 H=0.10 59550-6 LOINC #IM GRANS L=0.0 H=7.0 04776-9 LOINC %IM GRANS L=0.0 H=5.0 46449-2 LOINC %NRB L=0.0 H=0.2 23031-8 LOINC #NRB L=0.000 H=0.012 83248-3 LOINC MANUAL DIFF SEE BELOW A SEG [...] L=0 H=0 BLASTS 0 % L=0 H=0 23676-5 LOINC PANDA LYMPHS 10.00 % L=0.00 H=5.00 H SMUDGE CELLS 0 % L=0 H=0 NRBC 0.0 % L=0.0 H=0.0 PLTS DECREASED NEUT # 0.6 10^3uL L=1.9 H=7.6 LL LYMPH # 1.0 10^3uL L=0.9 H=4.9 MONO # 0.1 10^3uL L=0.1 H=0.9 EOS # 0.1 10^3uL L=0.0 H=0.6 712-0 LOINC BASO # 0.0 10^3uL L=0.0 H=0.1 03091-9 LOINC RBC MORPH NOT INDICATED COMPREHENSIVE METABOLIC PANE L - Collect Date/Time: 01/23/2025 14:13 [facility] ID: [id number] [address] [place], [place], [phone] LOINC: 14843-4 Test Value Unit Reference Range Code Code [...] 2028-9 LOINC ANION GAP 9 L=10 H=20 15880-4 LOINC L OSMOLALITY 291 mOs/kG L=280 H=296 46222-2 LOINC BUN/CREAT 13.8 3097-3 LOINC CALCIUM 8.7 mg/dL L=8.3 H=10.5 31207-7 LOINC AST 20 U/L L=15 H=46 1920-8 LOINC ALT 12 U/L L=9 H=72 1742-6 LOINC ALKALINE PHOS 71 U/L L=38 H=126 6768-6 LOINC TOTAL BILI 0.2 mg/dL L=0.2 H=1.3 1975-2 LOINC ALBUMIN 3.7 G/dL L=3.5 H=5.0 1751-7 LOINC TOTAL PROTEIN 6.8 g/L L=6.3 H=8.2 2885-2 LOINC A/G RATIO 1.2 95030-7 LOINC AGE 59 71321-0 LOINC eGFR NON-AFR 79 ml/min eGFR AFR AMER 96 ml/min BB ABO AND RH TYPE - Collect Date/Time: 01/23/2025 14:13 [facility] ID: [id number] [address] [place], [place], [id number] LOINC: 67372-9 Test Value Unit Reference Range Code Code System Flag ABO TYPE A 883-9 LOINC RH TYPE POSITIVE BB RETYPE ABO AND RH TYPE - Collect Date/Time: 01/23/2025 14:13 [facility] ID: [id number] [address] [place], [place], [id number] LOINC: 33276-1 Test Value Unit Reference Range Code Code System Flag ABO TYPE A 883-9 LOINC RH TYPE POSITIVE Social History Type Status Start Date End Date Code Code Syst em Smoking History Unknown if ever smoked [address] Sex Female Hospital Discharge Instructions [...]
--- OUTSIDE RECORDS SUMMARY | 2025-02-27 08:56 | XMS_ITS ---
Author Organization Unknown Address [address] [place] [phone] Phone Care Team Providers Care Rehabilitation Tech Name Role Phone JOHAN SULLIVAN Attending Unavailable Immunization Immunization Date Status Additional Notes Code Code System Tdap 03/26/2021 Completed 115 CVX Results [facility] - Completed: 12/25/2024 12:00 LOINC: \TM00\\12PI\\DRAo\\BM09\ \MRHo\ [address] [address] ---------NAME--------- NUMBER SEX AGE ADMIT DISC. XRAY# F/C TYPE CHUYITA TONY [id number] F 59 12/25/24 12/25/24 56451 MBJ O/P DATE OF : 1965 M/R# [id number] PH#: [phone] RM \MRHx\ LOCATION: TRANSCRIBED: 12/25/24 13:39 [facility] [id number] COMPLETED:12/25/24 12:00 APC 19704 {REASON-US ABD: ABDOMINAL PAIN PHYSICIAN: JOHAN R [...] of gallstones or acute cholecystitis. Hepatic steatosis. 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 XRAY# F/C TYPE CHUYITA TONY [id number] F 59 12/25/24 12/25/24 90217 MBJ O/P DATE OF : 1965 M/R# [id number] #: [id number] LOCATION: TRANSCRIBED: 12/25/24 13:39 [facility] [id number] COMPLETED:12/25/24 12:00 APC [id number] {REASON-US ABD: ABDOMINAL PAIN PHYSICIAN: JOHAN RADIOLOGY [...] of gallstones or acute cholecystitis. Hepatic steatosis. 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
[2025-02-27] MEDS: ONDANSETRON INJ 16 MG in SODIUM CHLORIDE 0.9% IV 50 ML 150 MG IVPB (09:00)
[2025-02-27 09:01] LABS: Hematocrit 22.3 % (35.0-49.0); Hemoglobin 7.1 g/dL (12.0-15.0); Immature Platelet Fraction Pct 8.5 % (1.0-7.0); Mean Corpuscular HGB Conc 31.8 g/dL (32-36); Mean Corpuscular Volume 94.1 fL (78.0-102.0); Platelet Count Result 26 K/mm3 (150-420); Red Blood Count 2.37 M/mm3 (4.20-5.40); Red Cell Distribution Width 19.3 % (11.6-14.4)
[2025-02-27 09:03] LABS: White Blood Count 1.1 K/mm3 (4.8-10.8)
[2025-02-27 09:07] VITALS: BP 111/70; PULSE 72; RESP 16; TEMP 36.6; O2SAT 97; BMI 32.2
[2025-02-27 09:12] LABS: Alanine Aminotransferase 14 U/L (6-35); Albumin Level 3.6 g/dL (3.5-5.1); Alkaline Phosphatase 66 U/L (38-126); Anion Gap 2 mmol/L (4-12); Aspartate Amino Transferase 22 U/L (14-36); Bilirubin,Total 0.5 mg/dL (0.2-1.3); Blood Urea Nitrogen 13 mg/dL (7-17); Calcium 8.2 mg/dL (8.4-10.2); Carbon Dioxide 28 mmol/L (22-30); Chloride 109 mmol/L (98-107); Estimated Glomerular Filt Rate > 60; Glucose 118 mg/dL (65-110); Osmolality Calculated 289 mOsm/kg (285-295); Sodium 139 mmol/L (137-145); Total Protein 6.2 g/dL (6.3-8.2)
[2025-02-27] MEDS: DECITABINE IVPB (09:25)
[2025-02-27] MEDS: SODIUM CHLORIDE 0.9% IVPB (09:25)
[2025-02-27] MEDS: HEPARIN SODIUM LOCK FLUSH 500 UNITS/5 ML SYRINGE IV PUSH (10:37)
[2025-02-27 10:48] VITALS: BP 121/63; PULSE 78; RESP 16
--- NOTE | 2025-02-27 10:50 | PC.NURSE ---
Tolerated today's treatment well. SEE MAR & patient care notes.
[2025-02-27 11:00] LABS: Band Neutrophils Percent 0 % (0-6); Neutrophils Percent Manual 28 % (46-73); Total Cells Counted 100
[2025-02-27 11:02] LABS: Anisocytosis 2+; Hypochromasia 3+; Platelet Estimate Decreased (Adequate); Poikilocytosis 1+; Schistocytes None Seen
== END 2025-02-27 08:35 | disposition home or self-care (01) ==
PROVIDERS: PCP Family Medicine; Visit Provider Internal Medicine Hematology
DX: D46.21 Refractory anemia with excess of blasts 1 (principal)
CPT/HCPCS: 36415; 36591; 80053; 85025; 85055; 86850; 86900; 86901; 96367; 96413; J0894; J2405; J7050

== ENCOUNTER 2025-03-05 10:16 | Outpatient (RCR) | payer MEDICARE, SELFPAY ==
[2025-03-04 11:35] VITALS: BP 125/70; PULSE 72; RESP 16; TEMP 36.4; O2SAT 97; BMI 32.2
[2025-03-04 12:28] LABS: Immature Platelet Fraction Pct 6.4 % (1.0-7.0); Mean Corpuscular HGB Conc 32.1 g/dL (32-36); Mean Corpuscular Hemoglobin 29.6 pg (27.0-31.0); Mean Corpuscular Volume 92.5 fL (78.0-102.0); Red Blood Count 1.99 M/mm3 (4.20-5.40); Red Cell Distribution Width 18.8 % (11.6-14.4)
[2025-03-04 12:33] LABS: Alanine Aminotransferase 13 U/L (6-35); Albumin Level 3.4 g/dL (3.5-5.1); Alkaline Phosphatase 64 U/L (38-126); Anion Gap 5 mmol/L (4-12); Aspartate Amino Transferase 20 U/L (14-36); Bilirubin,Total 0.5 mg/dL (0.2-1.3); Blood Urea Nitrogen 11 mg/dL (7-17); Calcium 8.1 mg/dL (8.4-10.2); Carbon Dioxide 26 mmol/L (22-30); Chloride 108 mmol/L (98-107); Estimated Glomerular Filt Rate > 60; Glucose 111 mg/dL (65-110); Hemoglobin 5.9 g/dL (12.0-15.0); Osmolality Calculated 288 mOsm/kg (285-295); Potassium 3.4 mmol/L (3.4-5.0); Sodium 139 mmol/L (137-145); Total Protein 6.4 g/dL (6.3-8.2); White Blood Count 0.7 K/mm3 (4.8-10.8)
[2025-03-04 12:34] LABS: Hematocrit 18.4 % (35.0-49.0); Platelet Count Result 13 K/mm3 (150-420)
[2025-03-04 12:44] LABS: Band Neutrophils Percent 0 % (0-6); Lymphocytes Absolute Manual 0.36 K/mm3 (1.1-4.5); Lymphocytes Percent Manual 52 % (18-44); Monocytes Absolute Manual 0.02 K/mm3 (0.1-0.90); Monocytes Percent Manual 4 % (3-9); Neutrophils Absolute Manual 0.16 K/mm3 (1.3-6.7); Neutrophils Percent Manual 24 % (46-73); Platelet Estimate Decreased (Adequate); Total Cells Counted 100
--- OUTSIDE RECORDS SUMMARY | 2025-03-04 12:51 | XMS_ITS ---
Author Organization Unknown Address [address] [place] [phone] Phone Care Team Providers Care Frame Trimmer Name Role Phone JOHAN SULLIVAN Attending Unavailable Immunization Immunization Date Status Additional Notes Code Code System Tdap 03/26/2021 Completed 115 CVX Results CBC W/ DIFF - Collect Date/T sarah: 01/08/2025 13:23 [facility] ID: [id number] [address] [place] [address], [phone] LOINC: 08302-7 Test Value Unit Reference Range Code Code [...] H=36.0 L PLATELETS 43 10^3uL L=100 H=400 72746-8 LOINC L RDW 16.1 % L=11.7 H=15.5 H %GRAN L=40.0 H=70.0 60955-0 LOINC %LYMPH L=20.0 H=45.0 736-9 LOINC %MONO L=2.0 H=10.0 08426-4 LOINC %EOS L=0.0 H=6.0 713-8 LOINC %BASO L=0.0 H=3.0 706-2 LOINC #NEUT L=1.9 H=7.6 49503-0 LOINC #LYMPH L=0.9 H=4.9 32299-2 LOINC #MONO L=0.1 H=0.9 23089-6 LOINC #EOS L=0.0 H=0.6 712-0 LOINC #BASO L=0.00 H=0.10 79223-1 LOINC #IM GRANS L=0.0 H=7.0 81335-2 LOINC %IM GRANS L=0.0 H=5.0 81201-5 LOINC %NRB L=0.0 H=0.2 85044-1 LOINC #NRB L=0.000 H=0.012 60870-4 LOINC MANUAL DIFF SEE BELOW A SEG [...] L=0 H=0 BLASTS 0 % L=0 H=0 92123-8 LOINC PANDA LYMPHS 0.00 % L=0.00 H=5.00 SMUDGE CELLS 0 % L=0 H=0 NRBC 0.0 % L=0.0 H=0.0 PLTS DECREASED NEUT # 0.7 10^3uL L=1.9 H=7.6 LL LYMPH # 1.2 10^3uL L=0.9 H=4.9 MONO # 0.0 10^3uL L=0.1 H=0.9 L EOS # 0.1 10^3uL L=0.0 H=0.6 712-0 LOINC BASO # 0.0 10^3uL L=0.0 H=0.1 15329-0 LOINC RBC MORPH NOT INDICATED COMPREHENSIVE METABOLIC PANE L - Collect Date/Time: 01/08/2025 13:23 [facility] ID: [id number] [address] [place], [place], [phone] LOINC: 95922-0 Test Value Unit Reference Range Code Code [...] 2028-9 LOINC ANION GAP 10 L=10 H=20 61631-0 LOINC OSMOLALITY 288 mOs/kG L=280 H=296 34226-9 LOINC BUN/CREAT 13.3 3097-3 LOINC CALCIUM 8.9 mg/dL L=8.3 H=10.5 68304-4 LOINC AST 23 U/L L=15 H=46 1920-8 LOINC ALT 15 U/L L=9 H=72 1742-6 LOINC ALKALINE PHOS 61 U/L L=38 H=126 6768-6 LOINC TOTAL BILI 0.3 mg/dL L=0.2 H=1.3 1975-2 LOINC ALBUMIN 3.9 G/dL L=3.5 H=5.0 1751-7 LOINC TOTAL PROTEIN 7.6 g/L L=6.3 H=8.2 2885-2 LOINC A/G RATIO 1.1 81431-5 LOINC AGE 59 88999-8 LOINC eGFR NON-AFR 69 ml/min eGFR AFR AMER 83 ml/min Social History Type Status Start Date End Date Code Code Syst em Smoking History Unknown if ever smoked [id number] Sex Female Hospital Discharge Instructions [...]
--- OUTSIDE RECORDS SUMMARY | 2025-03-04 12:51 | XMS_ITS ---
Author Organization Unknown Address [address] [place] [phone] Phone Care Team Providers Care Slabber Name Role Phone JOHAN SULLIVAN Attending Unavailable Immunization Immunization Date Status Additional Notes Code Code System Tdap 03/26/2021 Completed 115 CVX Results US GALLBLADDER - Completed: 12/25/2024 12:00 LOINC: \TM00\\12PI\\DRAo\\BM09\ \MRHo\ [address] [address] ---------NAME--------- NUMBER SEX AGE ADMIT DISC. XRAY# F/C TYPE CHUYITA TONY [id number] F 59 12/25/24 12/25/24 [id number] MBJ O/P DATE OF : 1965 M/R# [id number] PH#: [phone] RM \MRHx\ LOCATION: TRANSCRIBED: 12/25/24 13:39 US GALLBLADDER [id number] COMPLETED:12/25/24 12:00 APC [id number] {REASON-US ABD: ABDOMINAL PAIN PHYSICIAN: JOHAN R [...] of gallstones or acute cholecystitis. Hepatic steatosis. 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 XRAY# F/C TYPE CHUYITA TONY [id number] F 59 12/25/24 12/25/24 [id number] MBJ O/P DATE OF : 1965 M/R# [id number] #: [id number] LOCATION: TRANSCRIBED: 12/25/24 13:39 US GALLBLADDER [id number] COMPLETED:12/25/24 12:00 APC 30555 {REASON-US ABD: ABDOMINAL PAIN PHYSICIAN: JOHAN RADIOLOGY [...] of gallstones or acute cholecystitis. Hepatic steatosis. ION PLATE ROLLER HAND Reviewed and Electronically Signed by: Ivan Acosta MD Signed Date: 12/25/24 13:39
--- OUTSIDE RECORDS SUMMARY | 2025-03-04 12:51 | XMS_ITS ---
Author Organization Unknown Address [address] [place] [phone] Phone Care Team Providers Care Client Support Professional Name Role Phone PIPPA GREGORIONISHA Attending Unavailable JOHAN SULLIVAN Primary Unavailable Immunization Immunization Date Status Additional Notes Code Code System Tdap 03/26/2021 Completed 115 CVX Social History Type Status Start Date End Date Code Code Syst em Smoking History Unknown if ever smoked [address] Sex Female Vital Signs Vital Sign Value Unit Grayson Value Grayson Unit Date/Time Recent/Initial? Code Code System Body Mass Index 34.97 kg/m2 02/04/2025 09:56 Initial 99700 -5 [facility] Systolic Blood Pressure 168 mm[Hg] 02/04/2025 09:53 Initial 8480- 6 LOINC Diastolic Blood Pressure 73 mm[Hg] 02/04/2025 09:53 Initial 8462- 4 INC Body Surface Area 2.24 m2 02/04/2025 09:56 Initial 3140- 1 LOINC Height 172.720 0 cm 68.00 in 02/04/2025 09:56 Initial 8302- 2 LOINC O2 Saturation 100 % 2024 09:53 Initial 39289 -5 LOINC Pulse 99.0 /min 02/04/2025 09:53 Initial 8867- 4 LOINC Respiration 22 /min 02/05/20 09:53 Initial 9279- 1 LOINC Temperature 36.3 Freda 97.3 F 02/05/20 09:53 Initial 8310- 5 LOINC Weight 104.33 kg 230.00 lbs 02/04/2025 09:56 Initial 29966 -7 INC Hospital Discharge Instructions Should you [...]
--- OUTSIDE RECORDS SUMMARY | 2025-03-04 12:51 | XMS_ITS ---
Author Organization Unknown Address [address] [place] [phone] Phone Care Team Providers Care Car Audio Installer Name Role Phone PIPPA KNOX Attending Unavailable JOHAN SULLIVAN Primary Unavailable Immunization Immunization Date Status Additional Notes Code Code System Tdap 03/26/2021 Completed 115 CVX Results CBC W/ DIFF - Collect Date/T sarah: 01/23/2025 14:13 [facility] ID: [id number] [address] [place] [address], [phone] LOINC: 77074-2 Test Value Unit Reference Range Code Code [...] H=36.0 L PLATELETS 32 10^3uL L=100 H=400 84268-3 LOINC L RDW 17.1 % L=11.7 H=15.5 H %GRAN L=40.0 H=70.0 02976-8 LOINC %LYMPH L=20.0 H=45.0 736-9 LOINC %MONO L=2.0 H=10.0 76094-3 LOINC %EOS L=0.0 H=6.0 713-8 LOINC %BASO L=0.0 H=3.0 706-2 LOINC #NEUT L=1.9 H=7.6 52603-6 LOINC CALLED TO: CHRISTOPH MÁRQUEZ AT: 1448 01/23/25 BY: SDK #LYMPH L=0.9 H=4.9 05845-8 LOINC #MONO L=0.1 H=0.9 92252-3 LOINC #EOS L=0.0 H=0.6 712-0 LOINC #BASO L=0.00 H=0.10 65706-3 LOINC #IM GRANS L=0.0 H=7.0 75813-1 LOINC %IM GRANS L=0.0 H=5.0 11375-1 LOINC %NRB L=0.0 H=0.2 36604-5 LOINC #NRB L=0.000 H=0.012 92699-7 LOINC MANUAL DIFF SEE BELOW A SEG [...] L=0 H=0 BLASTS 0 % L=0 H=0 33848-7 LOINC PANDA LYMPHS 10.00 % L=0.00 H=5.00 H SMUDGE CELLS 0 % L=0 H=0 NRBC 0.0 % L=0.0 H=0.0 PLTS DECREASED NEUT # 0.6 10^3uL L=1.9 H=7.6 LL LYMPH # 1.0 10^3uL L=0.9 H=4.9 MONO # 0.1 10^3uL L=0.1 H=0.9 EOS # 0.1 10^3uL L=0.0 H=0.6 712-0 LOINC BASO # 0.0 10^3uL L=0.0 H=0.1 47097-3 LOINC RBC MORPH NOT INDICATED COMPREHENSIVE METABOLIC PANE L - Collect Date/Time: 01/23/2025 14:13 [facility] ID: [id number] [address] [place], [place], [phone] LOINC: 72862-3 Test Value Unit Reference Range Code Code [...] 2028-9 LOINC ANION GAP 9 L=10 H=20 99895-5 LOINC L OSMOLALITY 291 mOs/kG L=280 H=296 70411-9 LOINC BUN/CREAT 13.8 3097-3 LOINC CALCIUM 8.7 mg/dL L=8.3 H=10.5 55865-9 LOINC AST 20 U/L L=15 H=46 1920-8 LOINC ALT 12 U/L L=9 H=72 1742-6 LOINC ALKALINE PHOS 71 U/L L=38 H=126 6768-6 LOINC TOTAL BILI 0.2 mg/dL L=0.2 H=1.3 1975-2 LOINC ALBUMIN 3.7 G/dL L=3.5 H=5.0 1751-7 LOINC TOTAL PROTEIN 6.8 g/L L=6.3 H=8.2 2885-2 LOINC A/G RATIO 1.2 45082-8 LOINC AGE 59 37152-3 LOINC eGFR NON-AFR 79 ml/min eGFR AFR AMER 96 ml/min BB ABO AND RH TYPE - Collect Date/Time: 01/23/2025 14:13 [facility] ID: [id number] [address] [place], [place], [id number] LOINC: 64269-7 Test Value Unit Reference Range Code Code System Flag ABO TYPE A 883-9 LOINC RH TYPE POSITIVE BB RETYPE ABO AND RH TYPE - Collect Date/Time: 01/23/2025 14:13 [facility] ID: [id number] [address] [place], [place], [phone] LOINC: 34361-9 Test Value Unit Reference Range Code Code System Flag ABO TYPE A 883-9 LOINC RH TYPE POSITIVE Social History Type Status Start Date End Date Code Code Syst em Smoking History Unknown if ever smoked [address] Sex Female Hospital Discharge Instructions [...]
[2025-03-04] MEDS: HEPARIN SODIUM LOCK FLUSH 500 UNITS/5 ML SYRINGE (14:04)
--- NOTE | ~2025-03-05 | XR_ITS ---
XR abdomen obstructive series Ordering provider: Armando Mar MD History: . Constipation X 5 days . Comparison: None. FINDINGS: BOWEL: Air-fluid levels are noted with no dilatation., Nonobstructive bowel gas pattern. ORGANOMEGALY: None. SIGNIFICANT PATHOLOGIC CALCIFICATIONS: None. OTHER: No free air is seen under the diaphragm. Bilateral sacroiliacs. Degenerative spine. IMPRESSION: NO ACUTE ABDOMINAL FINDINGS. Air-fluid levels with no dilatation which can be seen with diarrhea. Clinical correlation advised. Reviewed, dictated and finalized at location A. IMPRESSION: NO ACUTE ABDOMINAL FINDINGS. Air-fluid levels with no dilatation which can be seen with diarrhea. Clinical c orrelation advised.
[2025-03-05] MEDS: SODIUM CHLORIDE 0.9% IV 250 ML 10 ML IVPB (10:20)
[2025-03-05 10:25] VITALS: BP 121/59; PULSE 72; RESP 14; TEMP 36.6; O2SAT 97
--- NOTE | 2025-03-05 10:39 | PC.NURSE ---
1025 Patient here for 1 unit PRBC's. Consent signed. Education given. No concerns voiced. Unit of PRBC's started at 60 ml/hr. 1040 No s/sx of blood transfusion reaction noted or reported. UP rate to 100 ml/hr.
[2025-03-05 10:40] VITALS: BP 121/59; PULSE 78; RESP 14; TEMP 36.6; O2SAT 97
[2025-03-05 11:40] VITALS: BP 147/69; PULSE 78; RESP 14; TEMP 36.5; O2SAT 97
[2025-03-05 12:40] VITALS: BP 136/70; PULSE 77; RESP 14; TEMP 36.6; O2SAT 97
[2025-03-05 13:25] VITALS: BP 122/77; PULSE 78; RESP 16; TEMP 36.6; O2SAT 97
[2025-03-05] MEDS: HEPARIN SODIUM LOCK FLUSH 500 UNITS/5 ML SYRINGE IV PUSH (13:39)
--- NOTE | 2025-03-05 13:49 | PC.NURSE ---
1120 No s/sx of transfusion noted or reported. Up rate to 125 ml/hr. 1150 Tolerated blood transfusion to 150 ml/hr. 1325 1 unit PRBC's completed. Normal saline infusion. 1350 Post H/H drawn sent to lab. Patient has appointment with Dr. Fonseca at clinic at 1355. Patient has been having constipation issues. 1355 Tolerated transfusion well. see TAR and patient care notes.
[2025-03-05 13:57] VITALS: BP 123/79; PULSE 72; RESP 14; TEMP 36.5; O2SAT 96
[2025-03-05 14:12] LABS: Hematocrit 20.8 % (35.0-49.0); Hemoglobin 6.8 g/dL (12.0-15.0)
--- NOTE | 2025-03-05 14:26 | PC.NURSE ---
Left message for Dr. Mar of patient's post H/H results.
== END 2025-03-05 10:17 | disposition home or self-care (01) ==
LOC: CHSTREATRM 10:16
PROVIDERS: PCP Family Medicine; Visit Provider Internal Medicine Hematology
DX: D46.9 Myelodysplastic syndrome, unspecified (principal)
CPT/HCPCS: 36415; 36430; 36591; 74019; 80053; 85014; 85018; 85025; 85055; 86850; 86900; 86901; 86920; J7050; P9016

== ENCOUNTER 2025-03-07 11:33 | Outpatient (CLI) | payer MEDICARE, SELFPAY ==
[2025-03-07] VITALS (8 sets, daily range): BP systolic 125–132; BP diastolic 63–77; PULSE 70–80; RESP 14–16; TEMP 36.4–36.6; O2SAT 96–97; BMI 32.1
--- NOTE | ~2025-03-07 | CT_ITS ---
Non-contrast CT scan of the Abdomen and Pelvis Clinical indication: Constipation Technique: 2.5 mm axial scans were obtained through the abdomen and pelvis without intravenous or or al contrast. Dose reduction technique was used on this scan by utilizing automated exposure control a nd iterative reconstruction technique. The dose-length product (DLP) was 868.71 mGy-cm. COMPARISON: 12/02/2023 Findings: Images through the lung bases reveal no abnormalities. There is no evidence of renal or ureteral calculi. The kidneys and the ureters are nondilated. The liver, spleen, pancreas, gallbladder, and adrenals appear normal. There is no aortic aneurysm. There is no evidence of bowel obstruction. There is circumferential wall thickening of the distal rec liya with mild infiltration of perirectal fat in this region. No abscess or free air. Images through the pelvis were performed. There is no evidence of ascites or lymphadenopathy. Urinary bladder unremarkable. No adnexal mass seen. No ascites. Impression: Circumferential wall thickening of the distal rectum with mild infiltration of perirectal fat. Correl ate for infectious/inflammatory proctitis versus possibility of neoplasm. Consider sigmoidoscopy as i ndicated. Reviewed, dictated and finalized at [facility]. Impression: Circumferential wall thickening of the distal rectum with mild infiltration of perirectal fat. Correlate for infectious/inflammatory proctitis versus possibil ity of neoplasm. Consider sigmoidoscopy as indicated.
[2025-03-07 12:03] LABS: Mean Corpuscular Hemoglobin 29.9 pg (27.0-31.0); Mean Corpuscular Volume 90.6 fL (78.0-102.0); Red Blood Count 2.24 M/mm3 (4.20-5.40); Red Cell Distribution Width 17.2 % (11.6-14.4)
[2025-03-07 12:05] LABS: White Blood Count 0.9 K/mm3 (4.8-10.8)
[2025-03-07 12:06] LABS: Hematocrit 20.3 % (35.0-49.0); Hemoglobin 6.7 g/dL (12.0-15.0); Platelet Count Result 9 K/mm3 (150-420)
--- OUTSIDE RECORDS SUMMARY | 2025-03-07 12:23 | XMS_ITS ---
Author Organization Unknown Address [address] [place] [phone] Phone Care Team Providers Care Personal Development Mentor Name Role Phone JOHAN SULLIVAN Attending Unavailable Immunization Immunization Date Status Additional Notes Code Code System Tdap 03/26/2021 Completed 115 CVX Results CBC W/ DIFF - Collect Date/T sarah: 01/08/2025 13:23 [facility] ID: [id number] [address] [place] [address], [phone] LOINC: 16656-2 Test Value Unit Reference Range Code Code [...] H=36.0 L PLATELETS 43 10^3uL L=100 H=400 19478-3 LOINC L RDW 16.1 % L=11.7 H=15.5 H %GRAN L=40.0 H=70.0 50902-7 LOINC %LYMPH L=20.0 H=45.0 736-9 LOINC %MONO L=2.0 H=10.0 71539-6 LOINC %EOS L=0.0 H=6.0 713-8 LOINC %BASO L=0.0 H=3.0 706-2 LOINC #NEUT L=1.9 H=7.6 06656-3 LOINC #LYMPH L=0.9 H=4.9 67256-0 LOINC #MONO L=0.1 H=0.9 63975-2 LOINC #EOS L=0.0 H=0.6 712-0 LOINC #BASO L=0.00 H=0.10 98832-5 LOINC #IM GRANS L=0.0 H=7.0 63489-9 LOINC %IM GRANS L=0.0 H=5.0 34881-3 LOINC %NRB L=0.0 H=0.2 99410-6 LOINC #NRB L=0.000 H=0.012 07875-1 LOINC MANUAL DIFF SEE BELOW A SEG [...] L=0 H=0 BLASTS 0 % L=0 H=0 03609-2 LOINC PANDA LYMPHS 0.00 % L=0.00 H=5.00 SMUDGE CELLS 0 % L=0 H=0 NRBC 0.0 % L=0.0 H=0.0 PLTS DECREASED NEUT # 0.7 10^3uL L=1.9 H=7.6 LL LYMPH # 1.2 10^3uL L=0.9 H=4.9 MONO # 0.0 10^3uL L=0.1 H=0.9 L EOS # 0.1 10^3uL L=0.0 H=0.6 712-0 LOINC BASO # 0.0 10^3uL L=0.0 H=0.1 98154-8 LOINC RBC MORPH NOT INDICATED COMPREHENSIVE METABOLIC PANE L - Collect Date/Time: 01/08/2025 13:23 [facility] ID: [id number] [address] [place], [place], [id number] LOINC: 64977-3 Test Value Unit Reference Range Code Code [...] 2028-9 LOINC ANION GAP 10 L=10 H=20 96025-8 LOINC OSMOLALITY 288 mOs/kG L=280 H=296 96769-6 LOINC BUN/CREAT 13.3 3097-3 LOINC CALCIUM 8.9 mg/dL L=8.3 H=10.5 93491-2 LOINC AST 23 U/L L=15 H=46 1920-8 LOINC ALT 15 U/L L=9 H=72 1742-6 LOINC ALKALINE PHOS 61 U/L L=38 H=126 6768-6 LOINC TOTAL BILI 0.3 mg/dL L=0.2 H=1.3 1975-2 LOINC ALBUMIN 3.9 G/dL L=3.5 H=5.0 1751-7 LOINC TOTAL PROTEIN 7.6 g/L L=6.3 H=8.2 2885-2 LOINC A/G RATIO 1.1 65886-2 LOINC AGE 59 68852-7 LOINC eGFR NON-AFR 69 ml/min eGFR AFR AMER 83 ml/min Social History Type Status Start Date End Date Code Code Syst em Smoking History Unknown if ever smoked [address] Sex Female Hospital Discharge Instructions [...]
--- OUTSIDE RECORDS SUMMARY | 2025-03-07 12:23 | XMS_ITS ---
Author Organization Unknown Address [address] [place] [phone] Phone Care Team Providers Care Assistant Hairstylist Name Role Phone PIPPA GREGORIONISHA Attending Unavailable JOHAN SULLIVAN Primary Unavailable Immunization Immunization Date Status Additional Notes Code Code System Tdap 03/26/2021 Completed 115 CVX Social History Type Status Start Date End Date Code Code Syst em Smoking History Unknown if ever smoked [address] Sex Female Vital Signs Vital Sign Value Unit [place] Value [place] Unit Date/Time Recent/Initial? Code Code System Body Mass Index 34.97 kg/m2 02/04/2025 09:56 Initial 08929 -5 [facility] Systolic Blood Pressure 168 mm[Hg] 02/04/2025 09:53 Initial 8480- 6 LOINC Diastolic Blood Pressure 73 mm[Hg] 02/04/2025 09:53 Initial 8462- 4 INC Body Surface Area 2.24 m2 02/04/2025 09:56 Initial 3140- 1 LOINC Height 172.720 0 cm 68.00 in 02/04/2025 09:56 Initial 8302- 2 LOINC O2 Saturation 100 % 2024 09:53 Initial 42278 -5 LOINC Pulse 99.0 /min 02/04/2025 09:53 Initial 8867- 4 LOINC Respiration 22 /min 02/05/20 09:53 Initial 9279- 1 LOINC Temperature 36.3 Freda 97.3 F 02/05/20 09:53 Initial 8310- 5 LOINC Weight 104.33 kg 230.00 lbs 02/04/2025 09:56 Initial 52924 -7 INC Hospital Discharge Instructions Should you [...]
--- OUTSIDE RECORDS SUMMARY | 2025-03-07 12:23 | XMS_ITS | Encounter Summary ---
Author Organization [facility] Address [address] [place] [id number] Care Team Providers Care Shingle Carrier Name Role Phone Reagan Fonseca MD Primary Care Provider [phone] Encounter Details Date Type Department Care Team (Late st Contact Info) Description 12/03/2017 Abstract [facility] CONVERSION [address] [place] [address] , Generic Conversion, Social History Tobacco Use [...] on filedocumented in this encounter Care Teams Shingle Carrier Relationship Specialty Start Date End Date Reagan Fonseca MD [address] [place] [address] PCP - General FAMILY PRACTICE 01/26/25 documented as of this encounter
--- OUTSIDE RECORDS SUMMARY | 2025-03-07 12:23 | XMS_ITS | Clinical Summary ---
Author Organization [facility] Address [address] [place] [address] Care Team Providers Care General Assembler Name Role Phone Reagan Fonseca MD Primary Care Provider Allergies Active Allergy Reactions Criticality Noted Date [...] CDT - 01/26/2025 8:40 PM CDT Emergency [facility] [address] [place] [address] Bharat Young, Medical Problem Discharge Disposition: Home [...] P M CDT Height 172.7 cm (5' 8) 01/26/2025 2:54 PM CDT Body Mass Index [...] UNITS ORDERED 1 01/26/2025 4:15 PM CDT [facility] ABO/RH A POSITIVE 01/26/2025 4:15 PM CDT [facility] ANTIBODY SCREEN NEGATIVE 4:15 PM CDT [facility] SAMPLE EXPIRATION 01/29/2025,2359 01/26/2025 4:15 PM CDT [facility] BLOOD UNIT NUMBER [id number] 01/26/2025 5:50 PM CDT [facility] PRODUCT: PC LEUKOPOOR IRRAD 01/26/2025 5:50 PM CDT [facility] UNIT DIVISION 00 01/26/2025 5:50 PM CDT [facility] BLOOD UNIT STATUS TRANSFUSED,FINAL 01/28/2025 5:03 AM CDT [facility] ISSUE DATE/TIME [id number] 025 5:03 AM CDT [facility] PRODUCT CODE [id number] 01/28/2025 5:03 AM CDT [facility] ABO/RH Unit A POS 01/28/2025 5:03 AM CDT [facility] ABO/RH UNIT ISBT CODE 6200 01/28/2025 5:03 AM CDT [facility] BLOOD UNIT EXPIRATION DATE [id number] 01/28/2025 5:03 AM CDT [facility] TRANSFUSION STATUS OK TO TRANSFUSE 01/26/2025 5:50 PM CDT [facility] CROSSMATCH COMPATIBLE 01/26/2025 5:50 PM CDT [facility] 01/26/2025 3:25 PM CDT us Bharat Young DO BLOOD BANK TEST ORDER JOCELYN Final Result [facility] [address] [place] [address], * PROTIME/INR, VENOUS (01/26/2025 3:25 PM CDT) PROTIME 11.9 9.4 - 12.5 SEC 01/26/2025 3:40 PM CDT [facility] INR 1.0 0.8 - 1.0 01/26/2025 3:40 PM CDT [facility] 01/26/2025 3:25 PM CDT Bharat Sinha Hector DO LABORATORY Final Result [facility] [address] [place] [address], * (ABNORMAL) BASIC METABOLIC PANEL (01/26/2025 3:25 PM CDT) SODIUM S/P/B 140 136 - 145 MMOL/L 01/26/2025 3:54 PM CDT [facility] POTASSIUM S/P/B 4.0 3.5 - 5.1 MMOL/L 01/26/2025 3:54 PM CDT [facility] CHLORIDE S/P/B 105 98 - 107 MMOL/L 01/26/2025 3:54 PM CDT [facility] CO2 31.3 21.0 - 32.0 MMOL/L 01/26/2025 3:54 PM CDT [facility] GLUCOSE 99 70 - 99 MG/DL 01/26/2025 3:54 PM CDT [facility] Comment: FASTING GLUCOSE 100 TO 125 MG/DL IS CONSISTENT WITH IMPAIRED FASTING GLUCOSE. FASTING GLUCOSE >125 MG/DL IS CONSISTENT WITH DIABETES. RANDOM GLUCOSE >200 MG/DL WITH HYPERGLYCEMIC SYMPTOMS IS CONSISTENT WITH DIABETES. PER ADA GUIDELINES BUN 6 6 - 24 MG/DL 01/26/2025 3:54 PM CDT [facility] CREATININE S/P/B 0.81 0.55 - 1.02 MG/DL 01/26/2025 3:54 PM CDT [facility] CALCIUM S/P/B 8.8 8.4 - 10.5 MG/DL 01/26/2025 3:54 PM CDT [facility] ANION GAP 3.7(L) 5.0 - 15.0 MMOL/L 01/26/2025 3:54 PM CDT [facility] OSMOLALITY (CALC) 288 MOSM/KG 025 3:54 PM CDT [facility] Comment:REFERENCE RANGE NOT ESTABLISHED GFR ESTIMATE 85(L) >89 ML/MIN/1. 73 M2 01/26/2025 3:54 PM CDT [facility] GFR NOTES GFR REFERENCE S: 01/26/2025 3:54 PM CDT [facility] Comment: THE ESTIMATED GFR IS [...] CDT Bharat Young DO LABORATORY Final Result [facility] [address] [place] [address], * (ABNORMAL) CBC W/DIFF AUTOMATED (01/26/2025 3:25 PM CDT) WBC 1.66(L) 4.00 - 10.80 x10'3/uL 01/26/2025 3:44 PM CDT [facility] RBC 2.08(L) 4.10 - 5.40 x10'6/uL 01/26/2025 3:44 PM CDT [facility] HGB 6.6(LL) 12.0 - 16.0 G/DL 01/26/2025 3:44 PM CDT [facility] Comment: CRITICAL VALUE CALLED TO MARYAM ORDONEZ RN ER AT 1544 BY READ BACK AND VERIFIED HCT 21.1(L) 36.0 - 47.0 % 01/26/2025 3:44 PM CDT [facility] MCV 101.4(H) 78.0 - 100.0 FL 01/26/2025 3:44 PM CDT [facility] MCH 31.7(H) 27.0 - 31.0 PG 01/26/2025 3:44 PM CDT [facility] MCHC 31.3(L) 33.0 - 36.0 G/DL 01/26/2025 3:44 PM CDT [facility] RDW 17.0(H) 11.5 - 14.5 % 01/26/2025 3:44 PM CDT [facility] PLT 29(LL) 150 - 350 x10'3/uL 01/26/2025 3:44 PM CDT [facility] Comment: CRITICAL VALUE CALLED TO MARYAM ORDONEZ RN ERAT 1544 BY READ BACK AND VERIFIED MPV 13.4(H) 7.4 - 10.4 FL 01/26/2025 3:44 PM CDT [facility] CBC COMMENT NORMAL REFERENCE RANGE NOT ESTABLISHED FOR THE PROPORTIONAL LEUKOCYTE DIFFERENTIAL. 01/26/2025 3:44 PM CDT [facility] NEUTROPHILS % 30.8 % 01/26/2025 4:00 PM CDT [facility] LYMPHOCYTES % 57.8 % 01/26/2025 4:00 PM CDT [facility] MONOCYTES % 3.6 % 01/26/2025 4:00 PM CDT [facility] EOSINOPHILS % 4.8 % 01/26/2025 4:00 PM CDT [facility] BASOPHILS % 0.6 % 01/26/2025 4:00 PM CDT [facility] IMMATURE GRANS % 2.4 % 01/27/20 4:00 PM CDT [facility] NRBC % 0.0 % 01/26/2025 4:00 PM CDT [facility] ABS. NEUTROPHILS 0.51(L) 1.60 - 8.30 x10'3/uL 01/26/2025 4:00 PM CDT [facility] ABS. LYMPHOCYTES 0.96 0.80 - 4.70 x10'3/uL 01/26/2025 4:00 PM CDT [facility] ABS. MONOCYTES 0.06 0.00 - 1.50 x10'3/uL 01/26/2025 4:00 PM CDT [facility] ABS. EOSINOPHILS 0.08 0.00 - 0.40 x10'3/uL 01/26/2025 4:00 PM CDT [facility] ABS. BASOPHILS 0.01 0.00 - 0.20 x10'3/uL 01/26/2025 4:00 PM CDT [facility] ABS. IMMATURE GRANULOCYTES 0.04(H) 0.00 - 0.03 x10'3/uL 01/26/2025 4:00 PM CDT [facility] ABS. NUCLEATED RBC'S 0.00 0.00 - 0.01 x10'3/uL 01/26/2025 4:00 PM CDT [facility] PLT MORPH. DECREASED 01/26/2025 4:00 PM CDT [facility] RBC MORPHOLOGY 1+ 01/26/2025 4:00 PM CDT [facility] Comment: HYPOCHROMASIA 2+ ANISOCYTOSIS 2+ POIKILOCYTOSIS 1+ ELLIPTOCYTES 1+ MICROCYTES 01/26/2025 3:25 PM CDT Bharat Young DO LABORATORY Final Result [facility] [address] [place] [address], from Last 3 Months Insurance [employer] Care Teams General Assembler Relationship Specialty Start Date End Date Reagan Fonseca MD [address] [place] [address] PCP - General FAMILY PRACTICE 01/26/25
--- OUTSIDE RECORDS SUMMARY | 2025-03-07 12:23 | XMS_ITS ---
Author Organization Unknown Address [address] [place] [phone] Phone Care Team Providers Care Remote Mortgage Underwriter Name Role Phone PIPPA KNOX Attending Unavailable JOHAN SULLIVAN Primary Unavailable Immunization Immunization Date Status Additional Notes Code Code System Tdap 03/26/2021 Completed 115 CVX Results CBC W/ DIFF - Collect Date/T sarah: 01/23/2025 14:13 [facility] ID: [id number] [address] [place] [address], [id number] LOINC: 12172-7 Test Value Unit Reference Range Code Code [...] H=36.0 L PLATELETS 32 10^3uL L=100 H=400 38815-3 LOINC L RDW 17.1 % L=11.7 H=15.5 H %GRAN L=40.0 H=70.0 29725-3 LOINC %LYMPH L=20.0 H=45.0 736-9 LOINC %MONO L=2.0 H=10.0 10634-8 LOINC %EOS L=0.0 H=6.0 713-8 LOINC %BASO L=0.0 H=3.0 706-2 LOINC #NEUT L=1.9 H=7.6 26647-4 LOINC CALLED TO: CHRISTOPH MÁRQUEZ AT: 1448 01/23/25 BY: SDK #LYMPH L=0.9 H=4.9 88571-8 LOINC #MONO L=0.1 H=0.9 53947-3 LOINC #EOS L=0.0 H=0.6 712-0 LOINC #BASO L=0.00 H=0.10 40408-8 LOINC #IM GRANS L=0.0 H=7.0 89383-7 LOINC %IM GRANS L=0.0 H=5.0 71286-9 LOINC %NRB L=0.0 H=0.2 99042-9 LOINC #NRB L=0.000 H=0.012 74609-4 LOINC MANUAL DIFF SEE BELOW A SEG [...] L=0 H=0 BLASTS 0 % L=0 H=0 25282-8 LOINC PANDA LYMPHS 10.00 % L=0.00 H=5.00 H SMUDGE CELLS 0 % L=0 H=0 NRBC 0.0 % L=0.0 H=0.0 PLTS DECREASED NEUT # 0.6 10^3uL L=1.9 H=7.6 LL LYMPH # 1.0 10^3uL L=0.9 H=4.9 MONO # 0.1 10^3uL L=0.1 H=0.9 EOS # 0.1 10^3uL L=0.0 H=0.6 712-0 LOINC BASO # 0.0 10^3uL L=0.0 H=0.1 41895-2 LOINC RBC MORPH NOT INDICATED COMPREHENSIVE METABOLIC PANE L - Collect Date/Time: 01/23/2025 14:13 [facility] ID: [id number] [address] [place], [place], [phone] LOINC: 97320-2 Test Value Unit Reference Range Code Code [...] 2028-9 LOINC ANION GAP 9 L=10 H=20 99988-7 LOINC L OSMOLALITY 291 mOs/kG L=280 H=296 02072-6 LOINC BUN/CREAT 13.8 3097-3 LOINC CALCIUM 8.7 mg/dL L=8.3 H=10.5 71066-3 LOINC AST 20 U/L L=15 H=46 1920-8 LOINC ALT 12 U/L L=9 H=72 1742-6 LOINC ALKALINE PHOS 71 U/L L=38 H=126 6768-6 LOINC TOTAL BILI 0.2 mg/dL L=0.2 H=1.3 1975-2 LOINC ALBUMIN 3.7 G/dL L=3.5 H=5.0 1751-7 LOINC TOTAL PROTEIN 6.8 g/L L=6.3 H=8.2 2885-2 LOINC A/G RATIO 1.2 85360-5 LOINC AGE 59 92761-7 LOINC eGFR NON-AFR 79 ml/min eGFR AFR AMER 96 ml/min BB ABO AND RH TYPE - Collect Date/Time: 01/23/2025 14:13 [facility] ID: [id number] [address] [place], [place], [phone] LOINC: 37887-3 Test Value Unit Reference Range Code Code System Flag ABO TYPE A 883-9 LOINC RH TYPE POSITIVE BB RETYPE ABO AND RH TYPE - Collect Date/Time: 01/23/2025 14:13 [facility] ID: [id number] [address] [place], [place], [id number] LOINC: 60480-4 Test Value Unit Reference Range Code Code System Flag ABO TYPE A 883-9 LOINC RH TYPE POSITIVE Social History Type Status Start Date End Date Code Code Syst em Smoking History Unknown if ever smoked [address] Sex Female Hospital Discharge Instructions [...]
--- OUTSIDE RECORDS SUMMARY | 2025-03-07 12:23 | XMS_ITS | Encounter Summary ---
Author Organization [facility] Address [address] [place] [address] Care Team Providers Care Trader Fixed Income Name Role Phone Reagan Fonseca MD Primary Care Provider [phone] Encounter Details Date Type Department Care Team (Late st Contact Info) Description 02/24/2019 Abstract SFL CONVERSION [address] [place] [address] , Generic Conversion, Social History Tobacco Use [...] on filedocumented in this encounter Care Teams Trader Fixed Income Relationship Specialty Start Date End Date Reagan Fonseca MD [address] [place] [address] PCP - General FAMILY PRACTICE 01/26/25 documented as of this encounter
--- OUTSIDE RECORDS SUMMARY | 2025-03-07 12:24 | XMS_ITS ---
Author Organization Unknown Address [address] [place] [phone] Phone Care Team Providers Care Percussion Instrument Tuner Name Role Phone JOHAN SULLIVAN Attending Unavailable Immunization Immunization Date Status Additional Notes Code Code System Tdap 03/26/2021 Completed 115 CVX Results US GALLBLADDER - Completed: 12/25/2024 12:00 LOINC: \TM00\\12PI\\DRAo\\BM09\ \MRHo\ [address] [address] ---------NAME--------- NUMBER SEX AGE ADMIT DISC. XRAY# F/C TYPE CHUYITA TONY [id number] F 59 12/25/24 12/25/24 [id number] MBJ O/P DATE OF : 1965 M/R# [id number] PH#: [phone] RM \MRHx\ LOCATION: TRANSCRIBED: 12/25/24 13:39 US GALLBLADDER [id number] COMPLETED:12/25/24 12:00 APC 68394 {REASON-US ABD: ABDOMINAL PAIN PHYSICIAN: JOHAN R [...] of gallstones or acute cholecystitis. Hepatic steatosis. V BELT CURER \ITLo\ \UNDo\ \UNDx\ \ITLx\ Reviewed and Electronically Signed by: Ivan Acosta MD Signed Date: 12/25/24 13:39 Social History Type Status Start Date End Date Code Code Syst em Smoking History Unknown if ever smoked [id number] Sex Female Hospital Discharge Instructions [...] - Primary care physician Imaging Narrative Notes [facility] 12/25/2024 13:[address] [address] ---------NAME--------- NUMBER SEX AGE ADMIT DISC. XRAY# F/C TYPE CHUYITA TONY [id number] F 59 12/25/24 12/25/24 [id number] MBJ O/P DATE OF : 1965 M/R# [id number] #: [id number] LOCATION: TRANSCRIBED: 12/25/24 13:39 US GALLBLADDER [id number] COMPLETED:12/25/24 12:00 APC 90163 {REASON-US ABD: ABDOMINAL PAIN PHYSICIAN: JOHAN RADIOLOGY [...] of gallstones or acute cholecystitis. Hepatic steatosis. V BELT CURER Reviewed and Electronically Signed by: Ivan Acosta MD Signed Date: 12/25/24 13:39
[2025-03-07] MEDS: SODIUM CHLORIDE 0.9% IV 250 ML 10 ML IVPB (12:55)
[2025-03-07 13:47] LABS: Band Neutrophils Percent 0 % (0-6); Neutrophils Percent Manual 13 % (46-73); Total Cells Counted 100
[2025-03-07 13:48] LABS: Anisocytosis 1+; Eosinophils Absolute Manual 0.01 K/mm3 (0.02-0.50); Eosinophils Percent Manual 2 % (1-6); Lymphocytes Percent Manual 78 % (18-44); Monocytes Absolute Manual 0.06 K/mm3 (0.1-0.90); Monocytes Percent Manual 7 % (3-9); Neutrophils Absolute Manual 0.11 K/mm3 (1.3-6.7); Schistocytes None Seen
[2025-03-07 13:49] LABS: Hypochromasia 3+; Platelet Estimate Decreased (Adequate)
--- NOTE | 2025-03-07 14:47 | PC.NURSE ---
1245 Here for transfusion 1 unit of PRBC's (Hgb 6.7) and 1 Unit of Platelets (10). Consent signed. Education given. NO concerns voiced. 1255 1 unit of PRBC's started. Rate at 60 ml/hr. 1315 No s/sx of transfusion reaction noted or reported. Up rate to 100 ml/hr. 1330 Watching TV. No s/sx of transfusion reaction noted or reported. Up rate 125m/hr. 1400 Up rate 150 ml/hr. Tolerated blood transfusion well.
[2025-03-07 16:14] LABS: Hematocrit 22.5 % (35.0-49.0); Hemoglobin 7.2 g/dL (12.0-15.0); Immature Platelet Fraction Pct 5.6 % (1.0-7.0)
[2025-03-07 16:21] LABS: Platelet Count Result 6 K/mm3 (150-420)
[2025-03-07] MEDS: HEPARIN SODIUM LOCK FLUSH 500 UNITS/5 ML SYRINGE IV PUSH (16:22)
--- NOTE | 2025-03-07 16:33 | PC.NURSE ---
1510 1 unit PRBC's completed. Tolerated well. 1525 1 unit Platelets started-gravity flow. 1550 1 unit platelets completed. Tolerated well.
--- NOTE | 2025-03-07 16:35 | PC.NURSE ---
1520 Results of post cbc left message with Dr. Mar. No new orders yet called back.
== END 2025-03-07 11:34 | disposition home or self-care (01) ==
PROVIDERS: PCP Family Medicine; Visit Provider Internal Medicine Hematology
DX: K59.01 Slow transit constipation (principal); D46.9 Myelodysplastic syndrome, unspecified
CPT/HCPCS: 36415; 36430; 74176; 85014; 85018; 85025; 85049; 85055; 86850; 86900; 86901; 86920; J7050; P9016; P9034

== ENCOUNTER 2025-03-07 16:42 | Emergency (ER) | payer MEDICARE, SELFPAY ==
[2025-03-07] VITALS (22 sets, daily range): BP systolic 99–167; BP diastolic 49–92; PULSE 92–133; RESP 19–40; TEMP 36.6–37.3; O2SAT 95–100
--- NOTE | ~2025-03-07 | CT_ITS ---
History: Shortness of breath and neutropenia PROCEDURE: CT head without contrast. COMPARISON: 02/19/2025 and dating back to 09/20/2019 TECHNIQUE: Axial imaging of the head performed from the skull base to the vertex without IV contrast. Sagittal a nd coronal reformations obtained. DLP: 681 mGy-cm FINDINGS: The ventricles are normal in size, shape and position. There is no mass, mass effect or midline shift. Redemonstration of cerebellar atrophy, unchanged from 2019. There is no abnormal extra-axial fluid collection or intracranial hemorrhage. Visualized paranasal sinuses are clear. The mastoid air cells are well aerated. No acute displaced fractures within the overlying cranium. Impression: No acute intracranial hemorrhage or suspicious mass effect. Redemonstration of cerebellar atrophy, unchanged from 2019. Reviewed, dictated and finalized at location A. Impression: No acute intracranial hemorrhage or suspicious mass effect. Redemonstration of cerebellar atrophy, unchanged from 2020.
--- NOTE | ~2025-03-07 | CT_ITS ---
EXAMINATION: CTA chest PE protocol DATE: 03/07/2025 18:09 CDT INDICATION: Shortness of breath, chest pain and tachycardia TECHNIQUE: Computed tomographic angiography (CTA) of the chest was performed with 100 mL Omnipaque-35 0 intravenous contrast. The dose-length product was 605.33 mGy-cm. Maximum intensity projection 3D-re constructions of the aorta and other arteries were constructed by the technologist on a separate work station. COMPARISON: None FINDINGS/OBSERVATIONS: PULMONARY ARTERIES: No filling defect is identified within the main or proximal pulmonary artery. The main pulmonary artery is not enlarged. THORACIC AORTA: No aneurysmal dilatation or dissection is present. The great vessels are intact LUNGS: Limited evaluation for the presence or absence of subcentimeter nodules secondary to tachypnea . The lungs are clear. MEDIASTINUM: No morphologically suspicious or pathologically enlarged lymph nodes are identified with in the mediastinum or bilateral axilla. Air opacified hiatal hernia is present. BONES OF THE CHEST: No acute fracture. No significant degenerative disease. No lytic or blastic lesions. HEART: The heart is of normal size, without pericardial effusion. IMPRESSION: No pulmonary embolus. No thoracic aortic dissection. The lungs are clear. Hiatal hernia. Reviewed, dictated and finalized at location A.
--- NOTE | ~2025-03-07 | XR_ITS ---
XR chest 1V portable Ordering provider: Mynor Germain MD History: 60 years Female with . dyspnea hx cancer, chemo, sob . Comparison: December 18, 2024 FINDINGS: MEDIASTINUM: The cardiac silhouette is not enlarged. LUNGS: No infiltrates, effusions or pneumothorax. Prominent bronchovascular markings in the lower lobes. OTHER: No free air under the diaphragm. IMPRESSION: Prominent bronchovascular markings in the lower lobes more on the right side. Pneumonitis cannot be e xcluded. Follow-up advised. Reviewed, dictated and finalized at location A. IMPRESSION: Prominent bronchovascular markings in the lower lobes more on the right side. P neumonitis cannot be excluded. Follow-up advised.
--- NOTE | 2025-03-07 16:45 | ECG_ITS ---
Test Date: 2025-03-07 16:50:50 Measurements Intervals [place] Rate: 104 P: 75 OH: 146 QRS: 67 QRSD: 92 T: 17 QT: 347 QTc: 458 Interpretive Statements [address]US T[address]ARDIA [address]-T WAVE ABNORMALITY IN ANTEROLAT/INF LEADS- CONSIDER ISCHEMIA BASELINE ARTIFACT- I, II, III, AVR, AVL, AVF, V1, V4-V6 ABNORMAL ECG No previous ECG available for comparison Electronically Signed On 03-07-2025 20:18:55 CDT by Escobar Bonilla D.O.
--- OUTSIDE RECORDS SUMMARY | 2025-03-07 16:46 | XMS_ITS ---
Author Organization Unknown Address [address] [place] [phone] Phone Care Team Providers Care Computer Systems Security Analyst Name Role Phone JOHAN SULLIVAN Attending Unavailable Immunization Immunization Date Status Additional Notes Code Code System Tdap 03/26/2021 Completed 115 CVX Results CBC W/ DIFF - Collect Date/T sarah: 01/08/2025 13:23 [facility] ID: [id number] [address] [place] [address], [phone] LOINC: 41790-4 Test Value Unit Reference Range Code Code [...] H=36.0 L PLATELETS 43 10^3uL L=100 H=400 17152-0 LOINC L RDW 16.1 % L=11.7 H=15.5 H %GRAN L=40.0 H=70.0 06418-6 LOINC %LYMPH L=20.0 H=45.0 736-9 LOINC %MONO L=2.0 H=10.0 38420-9 LOINC %EOS L=0.0 H=6.0 713-8 LOINC %BASO L=0.0 H=3.0 706-2 LOINC #NEUT L=1.9 H=7.6 00672-1 LOINC #LYMPH L=0.9 H=4.9 45719-7 LOINC #MONO L=0.1 H=0.9 38070-1 LOINC #EOS L=0.0 H=0.6 712-0 LOINC #BASO L=0.00 H=0.10 53055-3 LOINC #IM GRANS L=0.0 H=7.0 54420-0 LOINC %IM GRANS L=0.0 H=5.0 65052-4 LOINC %NRB L=0.0 H=0.2 59786-3 LOINC #NRB L=0.000 H=0.012 40953-0 LOINC MANUAL DIFF SEE BELOW A SEG [...] L=0 H=0 BLASTS 0 % L=0 H=0 14583-5 LOINC PANDA LYMPHS 0.00 % L=0.00 H=5.00 SMUDGE CELLS 0 % L=0 H=0 NRBC 0.0 % L=0.0 H=0.0 PLTS DECREASED NEUT # 0.7 10^3uL L=1.9 H=7.6 LL LYMPH # 1.2 10^3uL L=0.9 H=4.9 MONO # 0.0 10^3uL L=0.1 H=0.9 L EOS # 0.1 10^3uL L=0.0 H=0.6 712-0 LOINC BASO # 0.0 10^3uL L=0.0 H=0.1 71300-7 LOINC RBC MORPH NOT INDICATED COMPREHENSIVE METABOLIC PANE L - Collect Date/Time: 01/08/2025 13:23 [facility] ID: [id number] [address] [place], [place], [id number] LOINC: 35178-4 Test Value Unit Reference Range Code Code [...] 2028-9 LOINC ANION GAP 10 L=10 H=20 65462-8 LOINC OSMOLALITY 288 mOs/kG L=280 H=296 56078-1 LOINC BUN/CREAT 13.3 3097-3 LOINC CALCIUM 8.9 mg/dL L=8.3 H=10.5 62809-4 LOINC AST 23 U/L L=15 H=46 1920-8 LOINC ALT 15 U/L L=9 H=72 1742-6 LOINC ALKALINE PHOS 61 U/L L=38 H=126 6768-6 LOINC TOTAL BILI 0.3 mg/dL L=0.2 H=1.3 1975-2 LOINC ALBUMIN 3.9 G/dL L=3.5 H=5.0 1751-7 LOINC TOTAL PROTEIN 7.6 g/L L=6.3 H=8.2 2885-2 LOINC A/G RATIO 1.1 84887-0 LOINC AGE 59 81439-3 LOINC eGFR NON-AFR 69 ml/min eGFR AFR AMER 83 ml/min Social History Type Status Start Date End Date Code Code Syst em Smoking History Unknown if ever smoked [id number] Sex Female Hospital Discharge Instructions [...]
--- OUTSIDE RECORDS SUMMARY | 2025-03-07 16:46 | XMS_ITS | Encounter Summary ---
Author Organization [facility] Address [address] [place] [address] Care Team Providers Care Honey Processor Name Role Phone Reagan Fonseca MD Primary Care Provider [phone] Encounter Details Date Type Department Care Team (Late st Contact Info) Description 12/03/2017 Abstract SJS CONVERSION [address] [place] [address] , Generic Conversion, Social History Tobacco Use [...] on filedocumented in this encounter Care Teams Honey Processor Relationship Specialty Start Date End Date Reagan Fonseca MD [address] [place] [address] PCP - General FAMILY PRACTICE 01/26/25 documented as of this encounter
--- OUTSIDE RECORDS SUMMARY | 2025-03-07 16:46 | XMS_ITS | Encounter Summary ---
Author Organization [facility] Address [address] [place] [address] Care Team Providers Care Petroleum Supply Specialist Name Role Phone Reagan Fonseca MD Primary Care Provider [phone] Encounter Details Date Type Department Care Team (Late st Contact Info) Description 02/24/2019 Abstract SFL CONVERSION [address] [place] [address] , Generic Conversion, Social History Tobacco Use [...] on filedocumented in this encounter Care Teams Petroleum Supply Specialist Relationship Specialty Start Date End Date Reagan Fonseca MD [address] [place] [address] PCP - General FAMILY PRACTICE 01/26/25 documented as of this encounter
--- OUTSIDE RECORDS SUMMARY | 2025-03-07 16:46 | XMS_ITS | Clinical Summary ---
Author Organization [facility] Address [address] [place] [address] Care Team Providers Care Senior Research Fellow Name Role Phone Reagan Fonseca MD Primary Care Provider [phone] Allergies Active Allergy Reactions Criticality Noted Date [...] CDT - 01/26/2025 8:40 PM CDT Emergency [facility] [address] [place] [address] Bharat Young, Medical Problem Discharge Disposition: Home [...] UNITS ORDERED 1 01/26/2025 4:15 PM CDT [facility] ABO/RH A POSITIVE 01/26/2025 4:15 PM CDT [facility] ANTIBODY SCREEN NEGATIVE 4:15 PM CDT [facility] SAMPLE EXPIRATION 01/29/2025,2359 01/26/2025 4:15 PM CDT [facility] BLOOD UNIT NUMBER [id number] 01/26/2025 5:50 PM CDT [facility] PRODUCT: PC LEUKOPOOR IRRAD 01/26/2025 5:50 PM CDT [facility] UNIT DIVISION 00 01/26/2025 5:50 PM CDT [facility] BLOOD UNIT STATUS TRANSFUSED,FINAL 01/28/2025 5:03 AM CDT [facility] ISSUE DATE/TIME [id number] 025 5:03 AM CDT [facility] PRODUCT CODE [id number] 01/28/2025 5:03 AM CDT [facility] ABO/RH Unit A POS 01/28/2025 5:03 AM CDT [facility] ABO/RH UNIT ISBT CODE 6200 01/28/2025 5:03 AM CDT [facility] BLOOD UNIT EXPIRATION DATE [id number] 01/28/2025 5:03 AM CDT [facility] TRANSFUSION STATUS OK TO TRANSFUSE 01/26/2025 5:50 PM CDT [facility] CROSSMATCH COMPATIBLE 01/26/2025 5:50 PM CDT [facility] 01/26/2025 3:25 PM CDT us Bharat Young DO BLOOD BANK TEST ORDER JOCELYN Final Result [facility] [address] [place] [address], * PROTIME/INR, VENOUS (01/26/2025 3:25 PM CDT) PROTIME 11.9 9.4 - 12.5 SEC 01/26/2025 3:40 PM CDT [facility] INR 1.0 0.8 - 1.0 01/26/2025 3:40 PM CDT [facility] 01/26/2025 3:25 PM CDT Bharat Sinha Hector DO LABORATORY Final Result [facility] [address] [place] [address], * (ABNORMAL) BASIC METABOLIC PANEL (01/26/2025 3:25 PM CDT) SODIUM S/P/B 140 136 - 145 MMOL/L 01/26/2025 3:54 PM CDT [facility] POTASSIUM S/P/B 4.0 3.5 - 5.1 MMOL/L 01/26/2025 3:54 PM CDT [facility] CHLORIDE S/P/B 105 98 - 107 MMOL/L 01/26/2025 3:54 PM CDT [facility] CO2 31.3 21.0 - 32.0 MMOL/L 01/26/2025 3:54 PM CDT [facility] GLUCOSE 99 70 - 99 MG/DL 01/26/2025 3:54 PM CDT [facility] Comment: FASTING GLUCOSE 100 TO 125 MG/DL IS CONSISTENT WITH IMPAIRED FASTING GLUCOSE. FASTING GLUCOSE >125 MG/DL IS CONSISTENT WITH DIABETES. RANDOM GLUCOSE >200 MG/DL WITH HYPERGLYCEMIC SYMPTOMS IS CONSISTENT WITH DIABETES. PER ADA GUIDELINES BUN 6 6 - 24 MG/DL 01/26/2025 3:54 PM CDT [facility] CREATININE S/P/B 0.81 0.55 - 1.02 MG/DL 01/26/2025 3:54 PM CDT [facility] CALCIUM S/P/B 8.8 8.4 - 10.5 MG/DL 01/26/2025 3:54 PM CDT [facility] ANION GAP 3.7(L) 5.0 - 15.0 MMOL/L 01/26/2025 3:54 PM CDT [facility] OSMOLALITY (CALC) 288 MOSM/KG 025 3:54 PM CDT [facility] Comment:REFERENCE RANGE NOT ESTABLISHED GFR ESTIMATE 85(L) >89 ML/MIN/1. 73 M2 01/26/2025 3:54 PM CDT [facility] GFR NOTES GFR REFERENCE S: 01/26/2025 3:54 PM CDT [facility] Comment: THE ESTIMATED GFR IS [...] CDT Bharat Young DO LABORATORY Final Result [facility] [address] [place] [address], * (ABNORMAL) CBC W/DIFF AUTOMATED (01/26/2025 3:25 PM CDT) WBC 1.66(L) 4.00 - 10.80 x10'3/uL 01/26/2025 3:44 PM CDT [facility] RBC 2.08(L) 4.10 - 5.40 x10'6/uL 01/26/2025 3:44 PM CDT [facility] HGB 6.6(LL) 12.0 - 16.0 G/DL 01/26/2025 3:44 PM CDT [facility] Comment: CRITICAL VALUE CALLED TO MARYAM ORDONEZ RN ER AT 1544 BY READ BACK AND VERIFIED HCT 21.1(L) 36.0 - 47.0 % 01/26/2025 3:44 PM CDT [facility] MCV 101.4(H) 78.0 - 100.0 FL 01/26/2025 3:44 PM CDT [facility] MCH 31.7(H) 27.0 - 31.0 PG 01/26/2025 3:44 PM CDT [facility] MCHC 31.3(L) 33.0 - 36.0 G/DL 01/26/2025 3:44 PM CDT [facility] RDW 17.0(H) 11.5 - 14.5 % 01/26/2025 3:44 PM CDT [facility] PLT 29(LL) 150 - 350 x10'3/uL 01/26/2025 3:44 PM CDT [facility] Comment: CRITICAL VALUE CALLED TO MARYAM ORDONEZ RN ERAT 1544 BY READ BACK AND VERIFIED MPV 13.4(H) 7.4 - 10.4 FL 01/26/2025 3:44 PM CDT [facility] CBC COMMENT NORMAL REFERENCE RANGE NOT ESTABLISHED FOR THE PROPORTIONAL LEUKOCYTE DIFFERENTIAL. 01/26/2025 3:44 PM CDT [facility] NEUTROPHILS % 30.8 % 01/26/2025 4:00 PM CDT [facility] LYMPHOCYTES % 57.8 % 01/26/2025 4:00 PM CDT [facility] MONOCYTES % 3.6 % 01/26/2025 4:00 PM CDT [facility] EOSINOPHILS % 4.8 % 01/26/2025 4:00 PM CDT [facility] BASOPHILS % 0.6 % 01/26/2025 4:00 PM CDT [facility] IMMATURE GRANS % 2.4 % 01/27/20 4:00 PM CDT [facility] NRBC % 0.0 % 01/26/2025 4:00 PM CDT [facility] ABS. NEUTROPHILS 0.51(L) 1.60 - 8.30 x10'3/uL 01/26/2025 4:00 PM CDT [facility] ABS. LYMPHOCYTES 0.96 0.80 - 4.70 x10'3/uL 01/26/2025 4:00 PM CDT [facility] ABS. MONOCYTES 0.06 0.00 - 1.50 x10'3/uL 01/26/2025 4:00 PM CDT [facility] ABS. EOSINOPHILS 0.08 0.00 - 0.40 x10'3/uL 01/26/2025 4:00 PM CDT [facility] ABS. BASOPHILS 0.01 0.00 - 0.20 x10'3/uL 01/26/2025 4:00 PM CDT [facility] ABS. IMMATURE GRANULOCYTES 0.04(H) 0.00 - 0.03 x10'3/uL 01/26/2025 4:00 PM CDT [facility] ABS. NUCLEATED RBC'S 0.00 0.00 - 0.01 x10'3/uL 01/26/2025 4:00 PM CDT [facility] PLT MORPH. DECREASED 01/26/2025 4:00 PM CDT [facility] RBC MORPHOLOGY 1+ 01/26/2025 4:00 PM CDT [facility] Comment: HYPOCHROMASIA 2+ ANISOCYTOSIS 2+ POIKILOCYTOSIS 1+ ELLIPTOCYTES 1+ MICROCYTES 01/26/2025 3:25 PM CDT Bharat Young DO LABORATORY Final Result [facility] [address] [place] [address], from Last 3 [place] [address] MEDICAID Care Teams Senior Research Fellow Relationship Specialty Start Date End Date Reagan Fonseca MD [address] [place] [address] PCP - General FAMILY PRACTICE 01/26/25
--- OUTSIDE RECORDS SUMMARY | 2025-03-07 16:47 | XMS_ITS ---
Author Organization Unknown Address [address] [place] [phone] Phone Care Team Providers Care Manager Animal Name Role Phone PIPPA KNOX Attending Unavailable JOHAN SULLIVAN Primary Unavailable Immunization Immunization Date Status Additional Notes Code Code System Tdap 03/26/2021 Completed 115 CVX Results CBC W/ DIFF - Collect Date/T sarah: 01/23/2025 14:13 [facility] ID: [id number] [address] [place] [address], [phone] LOINC: 85891-8 Test Value Unit Reference Range Code Code [...] H=36.0 L PLATELETS 32 10^3uL L=100 H=400 28913-6 LOINC L RDW 17.1 % L=11.7 H=15.5 H %GRAN L=40.0 H=70.0 24255-9 LOINC %LYMPH L=20.0 H=45.0 736-9 LOINC %MONO L=2.0 H=10.0 51467-6 LOINC %EOS L=0.0 H=6.0 713-8 LOINC %BASO L=0.0 H=3.0 706-2 LOINC #NEUT L=1.9 H=7.6 28353-4 LOINC CALLED TO: CHRISTOPH MÁRQUEZ AT: 1448 01/23/25 BY: SDK #LYMPH L=0.9 H=4.9 43597-4 LOINC #MONO L=0.1 H=0.9 02710-5 LOINC #EOS L=0.0 H=0.6 712-0 LOINC #BASO L=0.00 H=0.10 95043-4 LOINC #IM GRANS L=0.0 H=7.0 27390-4 LOINC %IM GRANS L=0.0 H=5.0 72266-8 LOINC %NRB L=0.0 H=0.2 41412-3 LOINC #NRB L=0.000 H=0.012 69863-5 LOINC MANUAL DIFF SEE BELOW A SEG [...] L=0 H=0 BLASTS 0 % L=0 H=0 43859-5 LOINC PANDA LYMPHS 10.00 % L=0.00 H=5.00 H SMUDGE CELLS 0 % L=0 H=0 NRBC 0.0 % L=0.0 H=0.0 PLTS DECREASED NEUT # 0.6 10^3uL L=1.9 H=7.6 LL LYMPH # 1.0 10^3uL L=0.9 H=4.9 MONO # 0.1 10^3uL L=0.1 H=0.9 EOS # 0.1 10^3uL L=0.0 H=0.6 712-0 LOINC BASO # 0.0 10^3uL L=0.0 H=0.1 27558-7 LOINC RBC MORPH NOT INDICATED COMPREHENSIVE METABOLIC PANE L - Collect Date/Time: 01/23/2025 14:13 [facility] ID: [id number] [address] [place], [place], [id number] LOINC: 73685-5 Test Value Unit Reference Range Code Code [...] 2028-9 LOINC ANION GAP 9 L=10 H=20 42864-2 LOINC L OSMOLALITY 291 mOs/kG L=280 H=296 70685-6 LOINC BUN/CREAT 13.8 3097-3 LOINC CALCIUM 8.7 mg/dL L=8.3 H=10.5 32384-6 LOINC AST 20 U/L L=15 H=46 1920-8 LOINC ALT 12 U/L L=9 H=72 1742-6 LOINC ALKALINE PHOS 71 U/L L=38 H=126 6768-6 LOINC TOTAL BILI 0.2 mg/dL L=0.2 H=1.3 1975-2 LOINC ALBUMIN 3.7 G/dL L=3.5 H=5.0 1751-7 LOINC TOTAL PROTEIN 6.8 g/L L=6.3 H=8.2 2885-2 LOINC A/G RATIO 1.2 72172-0 LOINC AGE 59 54606-3 LOINC eGFR NON-AFR 79 ml/min eGFR AFR AMER 96 ml/min BB ABO AND RH TYPE - Collect Date/Time: 01/23/2025 14:13 [facility] ID: [id number] [place] [address], [id number] LOINC: 43963-1 Test Value Unit Reference Range Code Code System Flag ABO TYPE A 883-9 LOINC RH TYPE POSITIVE BB RETYPE ABO AND RH TYPE - Collect Date/Time: 01/23/2025 14:13 [facility] ID: [id number] [address] [place], [place], [id number] LOINC: 56690-2 Test Value Unit Reference Range Code Code System Flag ABO TYPE A 883-9 LOINC RH TYPE POSITIVE Social History Type Status Start Date End Date Code Code Syst em Smoking History Unknown if ever smoked [address] Sex Female Hospital Discharge Instructions [...]
--- OUTSIDE RECORDS SUMMARY | 2025-03-07 16:47 | XMS_ITS | Continuity of Care Document ---
Author Organization [facility] Address [address] [place] [address] Phone Care Team Providers Care Welding Machine Operator Thermit Name Role Phone Yohana Ray PT Unavailable Unavailable Procedures Procedure Date PT Evaluation Moderate Complexity Therapeutic Activities Neuromuscular Re-Ed Manual Therapy Advance Directives Directive Yes / No Effective Date File Name No Information Encounters Encounter Description Practice Location Reason(s) For Visit Diagnoses Date Provider Providers Copied on Encounter [facility], [address], [place], [place], [id number], tel:[phone] Diogenes No Information Flor Muller. . [facility], [facility] [address], [place], [place], [id number], tel:[phone] Diogenes No Information Flor Muller. . Family History Family Member Type Diagnosis Age At Onset No Information Payers Payer name Insurance type Covered green party ID Authoriza tion(s) [employer] Medicare Replacement [id number] Medicaid OON Write Off CI 00 Social [...]
--- OUTSIDE RECORDS SUMMARY | 2025-03-07 16:47 | XMS_ITS ---
Author Organization Unknown Address [address] [place] [phone] Phone Care Team Providers Care Apparatus Operator Name Role Phone PIPPA GREGORIONISHA Attending Unavailable JOHAN SULLIVAN Primary Unavailable Immunization Immunization Date Status Additional Notes Code Code System Tdap 03/26/2021 Completed 115 CVX Social History Type Status Start Date End Date Code Code Syst em Smoking History Unknown if ever smoked [address] Sex Female Vital Signs Vital Sign Value Unit Augusta Value Augusta Unit Date/Time Recent/Initial? Code Code System Body Mass Index 34.97 kg/m2 02/04/2025 09:56 Initial 41406 -5 [facility] Systolic Blood Pressure 168 mm[Hg] 02/04/2025 09:53 Initial 8480- 6 LOINC Diastolic Blood Pressure 73 mm[Hg] 02/04/2025 09:53 Initial 8462- 4 INC Body Surface Area 2.24 m2 02/04/2025 09:56 Initial 3140- 1 LOINC Height 172.720 0 cm 68.00 in 02/04/2025 09:56 Initial 8302- 2 LOINC O2 Saturation 100 % 2024 09:53 Initial 60605 -5 LOINC Pulse 99.0 /min 02/04/2025 09:53 Initial 8867- 4 LOINC Respiration 22 /min 02/05/20 09:53 Initial 9279- 1 LOINC Temperature 36.3 Freda 97.3 F 02/05/20 09:53 Initial 8310- 5 LOINC Weight 104.33 kg 230.00 lbs 02/04/2025 09:56 Initial 66995 -7 INC Hospital Discharge Instructions Should you [...]
--- OUTSIDE RECORDS SUMMARY | 2025-03-07 16:47 | XMS_ITS ---
Author Organization Unknown Address [address] [place] [phone] Phone Care Team Providers Care Stock Blender Name Role Phone JOHAN SULLIVAN Attending Unavailable Immunization Immunization Date Status Additional Notes Code Code System Tdap 03/26/2021 Completed 115 CVX Results US GALLBLADDER - Completed: 12/25/2024 12:00 LOINC: \TM00\\12PI\\DRAo\\BM09\ \MRHo\ [address] [address] ---------NAME--------- NUMBER SEX AGE ADMIT DISC. XRAY# F/C TYPE CHUYITA TONY [id number] F 59 12/25/24 12/25/24 [id number] MBJ O/P DATE OF : 1965 M/R# [id number] PH#: [phone] RM \MRHx\ LOCATION: TRANSCRIBED: 12/25/24 13:39 US GALLBLADDER [id number] COMPLETED:12/25/24 12:00 APC [id number] {REASON-US ABD: ABDOMINAL PAIN PHYSICIAN: JOHAN R [...] of gallstones or acute cholecystitis. Hepatic steatosis. 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 XRAY# F/C TYPE CHUYITA TONY [id number] F 59 12/25/24 12/25/24 [id number] MBJ O/P DATE OF : 1965 M/R# [id number] #: [id number] LOCATION: TRANSCRIBED: 12/25/24 13:39 US GALLBLADDER [id number] COMPLETED:12/25/24 12:00 APC [id number] {REASON-US ABD: ABDOMINAL PAIN PHYSICIAN: JOHAN RADIOLOGY [...] of gallstones or acute cholecystitis. Hepatic steatosis. 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
[2025-03-07] MEDS: IPRATROPIUM 0.5 MG/ALBUTEROL SULFATE 2.5 MG AMPUL.NEB 3 ML INHALATION (17:00)
--- OUTSIDE RECORDS SUMMARY | 2025-03-07 17:05 | XMS_ITS | Continuity of Care Document ---
Author Organization [facility] Address [address] [place] [address] Phone Care Team Providers Care Landing Man Name Role Phone Yohana Ray PT Unavailable Unavailable Procedures Procedure Date PT Evaluation Moderate Complexity Therapeutic Activities Neuromuscular Re-Ed Manual Therapy Advance Directives Directive Yes / No Effective Date File Name No Information Encounters Encounter Description Practice Location Reason(s) For Visit Diagnoses Date Provider Providers Copied on Encounter [facility], [address], [place], [place], [id number], tel:[phone] Diogenes No Information Flor Muller. . [facility], [facility] [address], [place], [place], [id number], tel:[phone] Diogenes No Information Flor Muller. . Family History Family Member Type Diagnosis Age At Onset No Information Payers Payer name Insurance type Covered green party ID Authoriza tion(s) [employer] Medicare Replacement 16 [id number] Medicaid OON Write Off CI 00 Social [...]
--- OUTSIDE RECORDS SUMMARY | 2025-03-07 17:05 | XMS_ITS ---
Author Organization Unknown Address [address] [place] [phone] Phone Care Team Providers Care Caddie Name Role Phone JOHAN SULLIVAN Attending Unavailable Immunization Immunization Date Status Additional Notes Code Code System Tdap 03/26/2021 Completed 115 CVX Results CBC W/ DIFF - Collect Date/T sarah: 01/08/2025 13:23 [facility] ID: [id number] [address] [place] [address], [phone] LOINC: 01800-6 Test Value Unit Reference Range Code Code System Flag WBC 2.0 10^3uL L=4.8 H=10.8 L RBC 2.48 10^6uL L=4.20 H=5.40 L HEMOGLOBIN 7.6 g/dL L=12.0 H=16.0 718-7 LOINC LL CALLED TO: LEEANN T AT: 1332 BY: SD HEMATOCRIT 25.1 VOL% L=37.0 H=47.0 4544-3 LOINC L MCV 101.2 fL L=81.0 H=99.0 H MCH 30.6 pg L=27.0 H=32.0 MCHC 30.3 g/dL L=32.0 H=36.0 L PLATELETS 43 10^3uL L=100 H=400 29346-8 LOINC L RDW 16.1 % L=11.7 H=15.5 H %GRAN L=40.0 H=70.0 47910-4 LOINC %LYMPH L=20.0 H=45.0 736-9 LOINC %MONO L=2.0 H=10.0 40167-3 LOINC %EOS L=0.0 H=6.0 713-8 LOINC %BASO L=0.0 H=3.0 706-2 LOINC #NEUT L=1.9 H=7.6 84368-0 LOINC #LYMPH L=0.9 H=4.9 82583-2 LOINC #MONO L=0.1 H=0.9 55063-3 LOINC #EOS L=0.0 H=0.6 712-0 LOINC #BASO L=0.00 H=0.10 80531-7 LOINC #IM GRANS L=0.0 H=7.0 13047-7 LOINC %IM GRANS L=0.0 H=5.0 58950-1 LOINC %NRB L=0.0 H=0.2 19077-2 LOINC #NRB L=0.000 H=0.012 77297-9 LOINC MANUAL DIFF SEE BELOW A SEG [...] L=0 H=0 BLASTS 0 % L=0 H=0 51807-0 LOINC PANDA LYMPHS 0.00 % L=0.00 H=5.00 SMUDGE CELLS 0 % L=0 H=0 NRBC 0.0 % L=0.0 H=0.0 PLTS DECREASED NEUT # 0.7 10^3uL L=1.9 H=7.6 LL LYMPH # 1.2 10^3uL L=0.9 H=4.9 MONO # 0.0 10^3uL L=0.1 H=0.9 L EOS # 0.1 10^3uL L=0.0 H=0.6 712-0 LOINC BASO # 0.0 10^3uL L=0.0 H=0.1 15608-0 LOINC RBC MORPH NOT INDICATED COMPREHENSIVE METABOLIC PANE L - Collect Date/Time: 01/08/2025 13:23 [facility] ID: [id number] [address] [place], [place], [id number] LOINC: 04868-6 Test Value Unit Reference Range Code Code [...] 2028-9 LOINC ANION GAP 10 L=10 H=20 99514-4 LOINC OSMOLALITY 288 mOs/kG L=280 H=296 41465-6 LOINC BUN/CREAT 13.3 3097-3 LOINC CALCIUM 8.9 mg/dL L=8.3 H=10.5 10713-1 LOINC AST 23 U/L L=15 H=46 1920-8 LOINC ALT 15 U/L L=9 H=72 1742-6 LOINC ALKALINE PHOS 61 U/L L=38 H=126 6768-6 LOINC TOTAL BILI 0.3 mg/dL L=0.2 H=1.3 1975-2 LOINC ALBUMIN 3.9 G/dL L=3.5 H=5.0 1751-7 LOINC TOTAL PROTEIN 7.6 g/L L=6.3 H=8.2 2885-2 LOINC A/G RATIO 1.1 45290-9 LOINC AGE 59 98887-5 LOINC eGFR NON-AFR 69 ml/min eGFR AFR AMER 83 ml/min Social History Type Status Start Date End Date Code Code Syst em Smoking History Unknown if ever smoked [address] Sex Female Hospital Discharge Instructions [...]
--- OUTSIDE RECORDS SUMMARY | 2025-03-07 17:05 | XMS_ITS ---
Author Organization Unknown Address [address] [place] [phone] Phone Care Team Providers Care Head Mechanic Name Role Phone PIPPA KNOX Attending Unavailable JOHAN SULLIVAN Primary Unavailable Immunization Immunization Date Status Additional Notes Code Code System Tdap 03/26/2021 Completed 115 CVX Results CBC W/ DIFF - Collect Date/T sarah: 01/23/2025 14:13 [facility] ID: [id number] [address] [place] [address], [id number] LOINC: 32800-1 Test Value Unit Reference Range Code Code [...] H=36.0 L PLATELETS 32 10^3uL L=100 H=400 36463-9 LOINC L RDW 17.1 % L=11.7 H=15.5 H %GRAN L=40.0 H=70.0 29561-7 LOINC %LYMPH L=20.0 H=45.0 736-9 LOINC %MONO L=2.0 H=10.0 40338-6 LOINC %EOS L=0.0 H=6.0 713-8 LOINC %BASO L=0.0 H=3.0 706-2 LOINC #NEUT L=1.9 H=7.6 17061-6 LOINC CALLED TO: CHRISTOPH MÁRQUEZ AT: 1448 01/23/25 BY: SDK #LYMPH L=0.9 H=4.9 43342-6 LOINC #MONO L=0.1 H=0.9 84360-4 LOINC #EOS L=0.0 H=0.6 712-0 LOINC #BASO L=0.00 H=0.10 92367-4 LOINC #IM GRANS L=0.0 H=7.0 71709-8 LOINC %IM GRANS L=0.0 H=5.0 23902-0 LOINC %NRB L=0.0 H=0.2 84911-9 LOINC #NRB L=0.000 H=0.012 83211-8 LOINC MANUAL DIFF SEE BELOW A SEG [...] L=0 H=0 BLASTS 0 % L=0 H=0 13291-9 LOINC PANDA LYMPHS 10.00 % L=0.00 H=5.00 H SMUDGE CELLS 0 % L=0 H=0 NRBC 0.0 % L=0.0 H=0.0 PLTS DECREASED NEUT # 0.6 10^3uL L=1.9 H=7.6 LL LYMPH # 1.0 10^3uL L=0.9 H=4.9 MONO # 0.1 10^3uL L=0.1 H=0.9 EOS # 0.1 10^3uL L=0.0 H=0.6 712-0 LOINC BASO # 0.0 10^3uL L=0.0 H=0.1 63005-5 LOINC RBC MORPH NOT INDICATED COMPREHENSIVE METABOLIC PANE L - Collect Date/Time: 01/23/2025 14:13 [facility] ID: [id number] [address] [place], [place], [id number] LOINC: 53836-1 Test Value Unit Reference Range Code Code [...] 2028-9 LOINC ANION GAP 9 L=10 H=20 01606-6 LOINC L OSMOLALITY 291 mOs/kG L=280 H=296 93501-2 LOINC BUN/CREAT 13.8 3097-3 LOINC CALCIUM 8.7 mg/dL L=8.3 H=10.5 92399-5 LOINC AST 20 U/L L=15 H=46 1920-8 LOINC ALT 12 U/L L=9 H=72 1742-6 LOINC ALKALINE PHOS 71 U/L L=38 H=126 6768-6 LOINC TOTAL BILI 0.2 mg/dL L=0.2 H=1.3 1975-2 LOINC ALBUMIN 3.7 G/dL L=3.5 H=5.0 1751-7 LOINC TOTAL PROTEIN 6.8 g/L L=6.3 H=8.2 2885-2 LOINC A/G RATIO 1.2 29041-4 LOINC AGE 59 30447-4 LOINC eGFR NON-AFR 79 ml/min eGFR AFR AMER 96 ml/min BB ABO AND RH TYPE - Collect Date/Time: 01/23/2025 14:13 [facility] ID: [id number] [address] [place], [place], [phone] LOINC: 83864-4 Test Value Unit Reference Range Code Code System Flag ABO TYPE A 883-9 LOINC RH TYPE POSITIVE BB RETYPE ABO AND RH TYPE - Collect Date/Time: 01/23/2025 14:13 [facility] ID: [id number] [address] [place], [place], [phone] LOINC: 23974-4 Test Value Unit Reference Range Code Code System Flag ABO TYPE A 883-9 LOINC RH TYPE POSITIVE Social History Type Status Start Date End Date Code Code Syst em Smoking History Unknown if ever smoked [address] Sex Female Hospital Discharge Instructions [...]
--- OUTSIDE RECORDS SUMMARY | 2025-03-07 17:06 | XMS_ITS ---
Author Organization Unknown Address [address] [place] [phone] Phone Care Team Providers Care Assembler Caterpillar Spider Name Role Phone JOHAN SULLIVAN Attending Unavailable Immunization Immunization Date Status Additional Notes Code Code System Tdap 03/26/2021 Completed 115 CVX Results US GALLBLADDER - Completed: 12/25/2024 12:00 LOINC: \TM00\\12PI\\DRAo\\BM09\ \MRHo\ [address] [address] ---------NAME--------- NUMBER SEX AGE ADMIT DISC. XRAY# F/C TYPE CHUYITA TONY [id number] F 59 12/25/24 12/25/24 93142 MBJ O/P DATE OF : 1965 M/R# [id number] PH#: [phone] RM \MRHx\ LOCATION: TRANSCRIBED: 12/25/24 13:39 US GALLBLADDER [id number] COMPLETED:12/25/24 12:00 APC 29022 {REASON-US ABD: ABDOMINAL PAIN PHYSICIAN: JOHAN R [...] of gallstones or acute cholecystitis. Hepatic steatosis. 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 XRAY# F/C TYPE CHUYITA TONY [id number] F 59 12/25/24 12/25/24 95022 MBJ O/P DATE OF : 1965 M/R# [id number] #: [id number] LOCATION: TRANSCRIBED: 12/25/24 13:39 US GALLBLADDER [id number] COMPLETED:12/25/24 12:00 APC 67395 {REASON-US ABD: ABDOMINAL PAIN PHYSICIAN: JOHAN RADIOLOGY [...] of gallstones or acute cholecystitis. Hepatic steatosis. 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
--- OUTSIDE RECORDS SUMMARY | 2025-03-07 17:06 | XMS_ITS ---
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 Code Code System Body Mass Index 34.97 kg/m2 02/04/2025 09:56 Initial 12947 -5 [facility] Systolic Blood Pressure 168 mm[Hg] 02/04/2025 09:53 Initial 8480- 6 LOINC Diastolic Blood Pressure 73 mm[Hg] 02/04/2025 09:53 Initial 8462- 4 INC Body Surface Area 2.24 m2 02/04/2025 09:56 Initial 3140- 1 LOINC Height 172.720 0 cm 68.00 in 02/04/2025 09:56 Initial 8302- 2 LOINC O2 Saturation 100 % 2024 09:53 Initial 19305 -5 LOINC Pulse 99.0 /min 02/04/2025 09:53 Initial 8867- 4 LOINC Respiration 22 /min 02/05/20 09:53 Initial 9279- 1 LOINC Temperature 36.3 Freda 97.3 F 02/05/20 09:53 Initial 8310- 5 LOINC Weight 104.33 kg 230.00 lbs 02/04/2025 09:56 Initial 24923 -7 INC Hospital Discharge Instructions Should you [...]
[2025-03-07 17:12] LABS: Hematocrit 24.9 % (35.0-49.0); Hemoglobin 8.1 g/dL (12.0-15.0); Immature Platelet Fraction Pct 5.9 % (1.0-7.0); Mean Corpuscular HGB Conc 32.5 g/dL (32-36); Mean Corpuscular Hemoglobin 29.6 pg (27.0-31.0); Mean Corpuscular Volume 90.9 fL (78.0-102.0); Red Blood Count 2.74 M/mm3 (4.20-5.40); Red Cell Distribution Width 16.8 % (11.6-14.4)
[2025-03-07] MEDS: methylPREDNISolone SOD SUCC 125 MG VIAL IV PUSH (17:19)
[2025-03-07] MEDS: MAGNESIUM SULF 2 GM/WATER 50ML 2 GM/50 ML BAG IVPB (17:21)
[2025-03-07 17:23] LABS: Lactic Acid Reflex 1.7 mmol/L (0.4-2.0)
[2025-03-07 17:24] LABS: Alanine Aminotransferase 28 U/L (6-35); Albumin Level 3.5 g/dL (3.5-5.1); Alkaline Phosphatase 72 U/L (38-126); Anion Gap 5 mmol/L (4-12); Aspartate Amino Transferase 43 U/L (14-36); Bilirubin,Total 0.4 mg/dL (0.2-1.3); Blood Urea Nitrogen 8 mg/dL (7-17); Calcium 7.8 mg/dL (8.4-10.2); Carbon Dioxide 29 mmol/L (22-30); Chloride 106 mmol/L (98-107); Estimated CRCL calculation 90 ml/min; Estimated Glomerular Filt Rate > 60; Glucose 146 mg/dL (65-110); Magnesium 1.8 mg/dL (1.6-2.3); Osmolality Calculated 291 mOsm/kg (285-295); Potassium 3.1 mmol/L (3.4-5.0); Sodium 140 mmol/L (137-145); Total Protein 6.5 g/dL (6.3-8.2); White Blood Count 0.6 K/mm3 (4.8-10.8)
[2025-03-07 17:25] LABS: Platelet Count Result 5 K/mm3 (150-420)
[2025-03-07 17:26] LABS: INR 0.9; Partial Thromboplastin Time 24.2 Sec (23.9-30.70); Prothrombin Time 10.5 Seconds (9.50-12.1)
--- NOTE | 2025-03-07 17:30 | PC.NURSE ---
blood consent signed for platelet transfusion, lab notified of ERP order for platelets to be given. Per lab it will take approx 1 hr to arrive.
[2025-03-07 17:33] LABS: NT Pro B Type Natriuretic Pept 866 pg/mL (19.9-100)
[2025-03-07] MEDS: ALPRAZolam (*CRX) 0.5 MG TABLET PO (17:33)
[2025-03-07] MEDS: SODIUM CHLORIDE 0.9% IV 1,000 ML 999 ML IV CONT (17:35)
[2025-03-07 17:36] LABS: Troponin I < 0.012 ng/mL (0.000-0.034)
--- NOTE | 2025-03-07 17:38 | PC.NURSE ---
Pt taken to CT for scan. ERP on phone w/ pts oncologist at this time. Pt remains alert, anxious and given po med for anxiety. Continuing to monitor.
[2025-03-07 17:51] LABS: Band Neutrophils Percent 0 % (0-6); Neutrophils Percent Manual 8 % (46-73)
[2025-03-07 17:52] LABS: Basophils Percent Manual 1 % (0-1); Eosinophils Absolute Manual 0.01 K/mm3 (0.02-0.50); Eosinophils Percent Manual 3 % (1-6); Lymphocytes Absolute Manual 0.52 K/mm3 (1.1-4.5); Lymphocytes Percent Manual 87 % (18-44); Monocytes Percent Manual 1 % (3-9); Neutrophils Absolute Manual 0.04 K/mm3 (1.3-6.7); Platelet Estimate Decreased (Adequate)
[2025-03-07 17:56] LABS: Influenza A QL RT-PCR Negative (Negative); Influenza B QL RT-PCR Negative (Negative); RSV RNA, RT-PCR Negative (Negative); SARS-CoV-2 RNA PCR Negative (Negative)
--- NOTE | 2025-03-07 18:05 | ED.SOB ---
HPI - SOB/Dyspnea General Chief Complaint: Shortness of Breath/Dyspnea Stated Complaint: shortness of breath Time Seen by Provider: 03/07/25 16:44 Source: patient and family Mode of arrival: ambulatory Limitations: no limitations History of Present Illness HPI Narrative: this is a 60-year-old female with a history of COPD that was recently diagnosed with MDS and had a platelet transfusion earlier this morning and presents after she went home after transfusion with shortness of breath there is no cough or congestion does feel like there is some chest heaviness with no radiation of her pain no headache no blurry vision no nausea vomiting no abdominal pain, there was no bleeding episodes no nose bleeds. Dyspnea and chest heaviness started after receiving a platelet transfusion and sent home. Patient is afebrile with no diarrhea constipation no abdominal pain. Patient appears anxious. MD elicited complaint: shortness of breath Pertinent past history: COPD Onset (ago): hour(s) Context: recent illness Related Data Home Medications ?Medication ?Instructions ?Recorded ?Confirmed ?Last Taken ?Type albuterol sulfate 90 mcg/actuation 90 mcg inhalation Q6H PRN SOB 05/24/24 03/07/25 Unknown History aerosol inhaler omeprazole 40 mg capsule,delayed 40 mg PO DAILY 05/24/24 03/07/25 Unknown History release alprazolam 0.25 mg tablet 0.25 mg PO DAILY PRN anxiety 02/04/25 03/07/25 Unknown History escitalopram oxalate 10 mg tablet 10 mg PO DAILY 02/04/25 03/07/25 Unknown History levofloxacin 500 mg tablet 500 mg PO Q24H 02/04/25 03/07/25 Unknown History lorazepam 0.5 mg tablet 0.5 mg PO BID PRN anxiety 02/04/25 03/07/25 Unknown History oxycodone 5 mg tablet 5 mg PO Q6H PRN pain 02/04/25 03/07/25 Unknown History trazodone 100 mg tablet 100 mg PO HS 02/04/25 03/07/25 Unknown History Allergies Allergy/AdvReac Type Severity Reaction Status Date / Time Penicillins Allergy Hives Verified 02/19/25 15:56 codeine AdvReac Nausea Verified 02/19/25 15:56 Review of Systems Review of Systems: All systems reviewed & are unremarkable except as noted in HPI and below PMFSH Past Medical History Medical History MDS (myelodysplastic syndrome) Abdominal pain Bronchitis COPD (chronic obstructive pulmonary disease) Type 2 diabetes mellitus Social History Social History Smoking packs per day: 1.5 Smoking cigarettes per day: 30.0 Years smoked: 35 Smoking pack-years: 52.50 Smoking status: Current every day smoker Tobacco type: cigarettes Second hand tobacco smoke exposure: Yes Alcohol intake: never Substance use: never Substance use type: does not use Do You Feel Safe in your Home?: Yes Lack of Transportation: No Lack of Food: Never True Current Housing: I Have Housing Concerned About Future Housing: No Difficulty Paying Gas/Electric Bills: No Difficulty Paying for Meds: No Currently Unemployed: No Education: Grade School Difficulty w/ Childcare or Family Care: No Living arrangements: with family Spiritual care concerns: No Exam Narrative: patient with shortness of breath after she had a platelet transfusion earlier this morning, current platelet count is 5 with an H and H of 8.1 in 24 with a white blood cell count of 0.6. Patient did receive a breathing treatment, with history of COPD and received Solu-Medrol 125mg IV. 2G of magnesium. Patient had a D-dimer 1.6 and CTA subsequently performed, CT of the brain was also performed. The patient received 0.5mg PO Xanax and patient seems a little more comfortable as far as breathing is concerned. Patient had an EKG which showed no ST or T changes troponins are negative lactic acid was normal. Spoke with some Oncology that accepted the prep patient for transfer to [facility] and also spoke to hospitalist that accepted the patient for transfer. Course Course Emergency Course: Patient with shortness of breath after she had a platelet transfusion earlier this morning, current platelet count is 5 with an H and H of 8.1 in 24 with a white blood cell count of 0.6. Patient did receive a breathing treatment, with history of COPD and received Solu-Medrol 125mg IV. 2G of magnesium. Patient had a D-dimer 1.6 and CTA subsequently performed, CT of the brain was also performed. The patient received 0.5mg PO Xanax and patient seems a little more comfortable as far as breathing is concerned. Patient had an EKG which showed no ST or T changes troponins are negative lactic acid was normal. Spoke with some Oncology that accepted the prep patient for transfer to [facility] and also spoke to hospitalist that accepted the patient for transfer. Vital Signs Vital signs: Vital Signs Temperature 37.3 C 03/07/25 16:42 Pulse Rate 105 H 03/07/25 16:42 Respiratory Rate 25 H 03/07/25 16:42 Blood Pressure 167/92 H 03/07/25 16:42 Pulse Oximetry 100 03/07/25 16:42 Oxygen Delivery Nasal Cannula 03/07/25 16:42 Oxygen Flow Rate 1 03/07/25 16:42 Temperature 37.3 C 03/07/25 16:42 Pulse Rate 109 H 03/07/25 17:55 Respiratory Rate 25 H 03/07/25 17:55 Blood Pressure 134/66 03/07/25 17:55 Pulse Oximetry 96 03/07/25 17:55 Oxygen Delivery Nasal Cannula 03/07/25 16:50 Oxygen Flow Rate 2 03/07/25 17:09 MDM - SOB/Dyspnea Lab Data 03/07/25 17:04 03/07/25 17:04 Labs: Lab Results 03/07/25 03/07/25 03/07/25 Range/Units 16:45 17:02 17:04 WBC 0.6 L* (4.8-10.8) K/mm3 RBC 2.74 L (4.20-5.40) M/mm3 Hgb 8.1 L (12.0-15.0) g/dL Hct 24.9 L (35.0-49.0) % MCV 90.9 (78.0-102.0) fL MCH 29.6 (27.0-31.0) pg MCHC 32.5 (32-36) g/dL RDW 16.8 H (11.6-14.4) % Plt Count 5 L* (150-420) K/mm3 MPV Not Reportable Immature Gran % (Auto) Not Reportable Neut % (Auto) Not Reportable Lymph % (Auto) Not Reportable O'Brien % (Auto) Not Reportable Eos % (Auto) Not Reportable Baso % (Auto) Not Reportable Lymph # (Auto) Not Reportable O'Brien # (Auto) Not Reportable Eos # (Auto) Not Reportable Baso # (Auto) Not Reportable Abs Immat Gran (auto) Not Reportable Absolute Neuts (auto) Not Reportable Absolute Nucleated RBC Not Reportable Neutrophils % (Manual) 8 L (46-73) % Band Neutrophils % 0 (0-6) % Lymphocytes % (Manual) 87 H (18-44) % Monocytes % (Manual) 1 L (3-9) % Eosinophils % (Manual) 3 (1-6) % Basophils % (Manual) 1 (0-1) % Nucleated RBC % Not Reportable Abs Neuts (Manual) 0.04 L* (1.3-6.7) K/mm3 Abs Lymphs (Manual) 0.52 L (1.1-4.5) K/mm3 Abs Monocytes (Manual) 0.00 L (0.1-0.90) K/mm3 Absolute Eos (Manual) 0.01 L (0.02-0.50) K/mm3 Abs Basophils (Manual) 0.00 (0-0.1) K/mm3 Platelet Estimate Decreased (Adequate) % Immature Plt Fraction 5.9 (1.0-7.0) % Schistocytes Not Reportable PT 10.5 (9.50-12.1) Seconds INR 0.9 APTT 24.2 (23.9-30.70) Sec D-Dimer 1.60 H (0.19-0.50) mg/L Sodium 140 (137-145) mmol/L Potassium 3.1 L (3.4-5.0) mmol/L Chloride 106 (98-107) mmol/L Carbon Dioxide 29 (22-30) mmol/L Anion Gap 5 (4-12) mmol/L BUN 8 (7-17) mg/dL Creatinine 0.69 L (0.7-1.0) mg/dL Estim Creat Clear Calc 90 ml/min Estimated GFR > 60 (59 - ) Glucose 146 H (65-110) mg/dL Calculated Osmolality 291 (285-295) mOsm/kg Lactic Acid 1.7 (0.4-2.0) mmol/L Calcium 7.8 L (8.4-10.2) mg/dL Magnesium 1.8 (1.6-2.3) mg/dL Total Bilirubin 0.4 (0.2-1.3) mg/dL AST 43 H (14-36) U/L ALT 28 (6-35) U/L Alkaline Phosphatase 72 (38-126) U/L Troponin I < 0.012 (0.000-0.034) ng/mL NT-Pro-B Natriuret Pep 866 H (19.9-100) pg/mL Total Protein 6.5 (6.3-8.2) g/dL Albumin 3.5 (3.5-5.1) g/dL Influenza A (RT-PCR) Negative (Negative) Influenza B (RT-PCR) Negative (Negative) RSV (RT-PCR) Negative (Negative) SARS-CoV-2 RNA (RT-PCR) Negative (Negative) Blood Type A Positive Critical Care Time Critical Care Time Critical Care Time: No Discharge Plan Discharge Clinical Impression: Shortness of breath, Thrombocytopenia Patient Disposition: Home Condition: Stable Instructions: Antibiotic Form Patient Language: Greenlandic Prescriptions: No Action alprazolam 0.25 mg tablet 0.25 mg PO DAILY PRN (Reason: anxiety) escitalopram oxalate 10 mg tablet 10 mg PO DAILY levofloxacin 500 mg tablet 500 mg PO Q24H lorazepam 0.5 mg tablet 0.5 mg PO BID PRN (Reason: anxiety) oxycodone 5 mg tablet 5 mg PO Q6H PRN (Reason: pain) trazodone 100 mg tablet 100 mg PO HS omeprazole 40 mg capsule,delayed release(DR/EC) 40 mg PO DAILY albuterol sulfate 90 mcg/actuation HFA aerosol inhaler 90 mcg INHALATION Q6H PRN (Reason: SOB) fexofenadine [Allergy Relief (fexofenadine)] 60 mg tablet 60 mg PO Q12H Qty: 60 2RF (DME) nebulizers [MC 300 Nebulizer w-Mouthpiece] Misc See Rx Instructions .Route Qty: 1 0RF Rx Instructions: As directed (DME) nebulizer accessories Kit See Rx Instructions .Route Qty: 1 0RF Rx Instructions: As directed Follow-up/Referrals: Reagan Fonseca MD [Primary Care Provider] - Time of Disposition: 18:10
--- NOTE | 2025-03-07 18:17 | PC.NURSE ---
Pt resting, still feels tachypneic and SOB, continuing to monitor, awaiting bed placement at [facility], awaiting platelets for transfusion.
--- NOTE | 2025-03-07 19:03 | PC.NURSE ---
Pt assisted to [facility] to urinate and back to bed, awaiting EMS for transfer to [facility].
--- NOTE | 2025-03-07 19:32 | PC.NURSE ---
Call received from Corona Reveles at [facility], report given, pt has bed and can send for transfer.
--- NOTE | 2025-03-07 19:40 | PC.NURSE ---
Call placed to lab, still no platelets have arrived, pt is being transfered to [facility] and not going await arrival of platelets since not here yet. Pt stable, continuing to monitor.
--- NOTE | 2025-03-09 16:14 | PC.NURSE ---
Preliminary blood culture: no growth to date
--- NOTE | 2025-03-13 12:04 | PC.NURSE ---
FINAL BLOOD CULTURE NO GROWTH AFTER 5 DAYS
== END 2025-03-07 20:22 | disposition home or self-care (01) ==
PROVIDERS: Emergency Provider Emergency Medicine; PCP Family Medicine
DX: R06.02 Shortness of breath (principal); D69.6 Thrombocytopenia, unspecified; J44.9 Chronic obstructive pulmonary disease, unspecified; E11.9 Type 2 diabetes mellitus without complications; F17.210 Nicotine dependence, cigarettes, uncomplicated; Z20.822 Contact with and (suspected) exposure to COVID-19
CPT/HCPCS: 36415; 70450; 71045; 71275; 80053; 83605; 83735; 83880; 84484; 85025; 85055; 85380; 85610; 85730; 86900; 86901; 87040; 87637; 93005; 94640; 96361; 96365; 96375; 99284; A9270; J2919; J3475; J7030; Q9967

== ENCOUNTER 2025-03-15 11:50 | Outpatient (CLI) | payer MEDICARE, SELFPAY ==
[2025-03-15 12:24] LABS: Hematocrit 25.6 % (35.0-49.0); Hemoglobin 8.4 g/dL (12.0-15.0); Immature Platelet Fraction Pct 4.8 % (1.0-7.0); Mean Corpuscular HGB Conc 32.8 g/dL (32-36); Mean Corpuscular Volume 88.3 fL (78.0-102.0); Red Cell Distribution Width 16.5 % (11.6-14.4)
[2025-03-15 12:28] LABS: Platelet Count Result 12 K/mm3 (150-420); White Blood Count 0.8 K/mm3 (4.8-10.8)
[2025-03-15 12:41] LABS: Eosinophils Absolute Manual 0.01 K/mm3 (0.02-0.50); Eosinophils Percent Manual 2 % (1-6); Lymphocytes Absolute Manual 0.63 K/mm3 (1.1-4.5); Lymphocytes Percent Manual 79 % (18-44); Monocytes Absolute Manual 0.01 K/mm3 (0.1-0.90); Monocytes Percent Manual 2 % (3-9); Neutrophils Percent Manual 17 % (46-73); Platelet Estimate Adequate (Adequate)
[2025-03-15 12:43] LABS: Total Cells Counted 100
[2025-03-15 12:44] LABS: Schistocytes None Seen
== END 2025-03-15 11:51 | disposition home or self-care (01) ==
LOC: CHSTREATRM 11:53
PROVIDERS: PCP Family Medicine; Visit Provider Internal Medicine Hematology
DX: D46.9 Myelodysplastic syndrome, unspecified (principal)
CPT/HCPCS: 36415; 85025; 85055; 86850; 86900; 86901

== ENCOUNTER 2025-03-18 11:45 | Outpatient (CLI) | payer MEDICARE, SELFPAY ==
--- OUTSIDE RECORDS SUMMARY | 2025-03-18 12:01 | XMS_ITS ---
Author Organization Unknown Address [address] [place] [phone] Phone Care Team Providers Care Automatic Buffer Name Role Phone JOHAN SULLIVAN Attending Unavailable Immunization Immunization Date Status Additional Notes Code Code System Tdap 03/26/2021 Completed 115 CVX Results US GALLBLADDER - Completed: 12/25/2024 12:00 LOINC: \TM00\\12PI\\DRAo\\BM09\ \MRHo\ [address] [address] ---------NAME--------- NUMBER SEX AGE ADMIT DISC. XRAY# F/C TYPE CHUYITA TONY [id number] F 59 12/25/24 12/25/24 [id number] MBJ O/P DATE OF : 1965 M/R# [id number] PH#: [phone] RM \MRHx\ LOCATION: TRANSCRIBED: 12/25/24 13:39 US GALLBLADDER [id number] COMPLETED:12/25/24 12:00 APC [id number] {REASON-US ABD: ABDOMINAL PAIN PHYSICIAN: JOHAN R [...] of gallstones or acute cholecystitis. Hepatic steatosis. IC ARTIST \ITLo\ \UNDo\ \UNDx\ \ITLx\ Reviewed and Electronically Signed by: Ivan Acosta MD Signed Date: 12/25/24 13:39 Social History Type Status Start Date End Date Code Code Syst em Smoking History Unknown if ever smoked [address] Sex Female Hospital Discharge Instructions [...] - Primary care physician Imaging Narrative Notes [facility] 12/25/2024 13:[address] [address] ---------NAME--------- NUMBER SEX AGE ADMIT DISC. XRAY# F/C TYPE CHUYITA TONY [id number] F 59 12/25/24 12/25/24 40413 MBJ O/P DATE OF : 1965 M/R# [id number] #: [phone] LOCATION: TRANSCRIBED: 12/25/24 13:39 US GALLBLADDER [id number] COMPLETED:12/25/24 12:00 APC [id number] {REASON-US ABD: ABDOMINAL PAIN PHYSICIAN: JOAHN RADIOLOGY REPORT INDICATION: ABDOMINAL PAIN TECHNIQUE: Multiple [...] of gallstones or acute cholecystitis. Hepatic steatosis. IC ARTIST Reviewed and Electronically Signed by: Ivan Acosta MD Signed Date: 12/25/24 13:39
--- OUTSIDE RECORDS SUMMARY | 2025-03-18 12:01 | XMS_ITS ---
Author Organization Unknown Address [address] [place] [phone] Phone Care Team Providers Care Caster Helper Name Role Phone PIPPA BURCIAGAWade Attending Unavailable JOHAN SULLIVAN Primary Unavailable Immunization Immunization Date Status Additional Notes Code Code System Tdap 03/26/2021 Completed 115 CVX Results CBC W/ DIFF - Collect Date/T sarah: 01/23/2025 14:13 [facility] ID: [id number] [address] [place] [address], [id number] LOINC: 10470-5 Test Value Unit Reference Range Code Code [...] H=36.0 L PLATELETS 32 10^3uL L=100 H=400 92264-0 LOINC L RDW 17.1 % L=11.7 H=15.5 H %GRAN L=40.0 H=70.0 35740-7 LOINC %LYMPH L=20.0 H=45.0 736-9 LOINC %MONO L=2.0 H=10.0 74113-5 LOINC %EOS L=0.0 H=6.0 713-8 LOINC %BASO L=0.0 H=3.0 706-2 LOINC #NEUT L=1.9 H=7.6 67384-3 LOINC CALLED TO: CHRISTOPH MÁRQUEZ AT: 1448 01/23/25 BY: SDK #LYMPH L=0.9 H=4.9 83506-4 LOINC #MONO L=0.1 H=0.9 53435-8 LOINC #EOS L=0.0 H=0.6 712-0 LOINC #BASO L=0.00 H=0.10 15886-4 LOINC #IM GRANS L=0.0 H=7.0 88992-9 LOINC %IM GRANS L=0.0 H=5.0 30484-3 LOINC %NRB L=0.0 H=0.2 28548-9 LOINC #NRB L=0.000 H=0.012 19330-8 LOINC MANUAL DIFF SEE BELOW A SEG [...] L=0 H=0 BLASTS 0 % L=0 H=0 19615-9 LOINC PANDA LYMPHS 10.00 % L=0.00 H=5.00 H SMUDGE CELLS 0 % L=0 H=0 NRBC 0.0 % L=0.0 H=0.0 PLTS DECREASED NEUT # 0.6 10^3uL L=1.9 H=7.6 LL LYMPH # 1.0 10^3uL L=0.9 H=4.9 MONO # 0.1 10^3uL L=0.1 H=0.9 EOS # 0.1 10^3uL L=0.0 H=0.6 712-0 LOINC BASO # 0.0 10^3uL L=0.0 H=0.1 70866-4 LOINC RBC MORPH NOT INDICATED COMPREHENSIVE METABOLIC PANE L - Collect Date/Time: 01/23/2025 14:13 [facility] ID: [id number] [address] [place], [place], [id number] LOINC: 46597-7 Test Value Unit Reference Range Code Code [...] 2028-9 LOINC ANION GAP 9 L=10 H=20 30420-1 LOINC L OSMOLALITY 291 mOs/kG L=280 H=296 66505-1 LOINC BUN/CREAT 13.8 3097-3 LOINC CALCIUM 8.7 mg/dL L=8.3 H=10.5 76755-5 LOINC AST 20 U/L L=15 H=46 1920-8 LOINC ALT 12 U/L L=9 H=72 1742-6 LOINC ALKALINE PHOS 71 U/L L=38 H=126 6768-6 LOINC TOTAL BILI 0.2 mg/dL L=0.2 H=1.3 1975-2 LOINC ALBUMIN 3.7 G/dL L=3.5 H=5.0 1751-7 LOINC TOTAL PROTEIN 6.8 g/L L=6.3 H=8.2 2885-2 LOINC A/G RATIO 1.2 84011-0 LOINC AGE 59 74459-3 LOINC eGFR NON-AFR 79 ml/min eGFR AFR AMER 96 ml/min BB ABO AND RH TYPE - Collect Date/Time: 01/23/2025 14:13 [facility] ID: [id number] [address] [place], [place], [id number] LOINC: 32445-5 Test Value Unit Reference Range Code Code System Flag ABO TYPE A 883-9 LOINC RH TYPE POSITIVE BB RETYPE ABO AND RH TYPE - Collect Date/Time: 01/23/2025 14:13 [facility] ID: [id number] [address] [place], [place], [id number] LOINC: 27382-0 Test Value Unit Reference Range Code Code System Flag ABO TYPE A 883-9 LOINC RH TYPE POSITIVE Social History Type Status Start Date End Date Code Code Syst em Smoking History Unknown if ever smoked [address] Sex Female Hospital Discharge Instructions [...]
--- OUTSIDE RECORDS SUMMARY | 2025-03-18 12:01 | XMS_ITS ---
Author Organization Unknown Address [address] [place] [phone] Phone Care Team Providers Care Face Hardener Name Role Phone JOHAN SULLIVAN Attending Unavailable Immunization Immunization Date Status Additional Notes Code Code System Tdap 03/26/2021 Completed 115 CVX Results CBC W/ DIFF - Collect Date/T sarah: 01/08/2025 13:23 [facility] ID: [id number] [address] [place], [place], [id number] LOINC: 44380-6 Test Value Unit Reference Range Code Code [...] H=36.0 L PLATELETS 43 10^3uL L=100 H=400 22297-9 LOINC L RDW 16.1 % L=11.7 H=15.5 H %GRAN L=40.0 H=70.0 59510-2 LOINC %LYMPH L=20.0 H=45.0 736-9 LOINC %MONO L=2.0 H=10.0 30626-1 LOINC %EOS L=0.0 H=6.0 713-8 LOINC %BASO L=0.0 H=3.0 706-2 LOINC #NEUT L=1.9 H=7.6 31951-4 LOINC #LYMPH L=0.9 H=4.9 79766-3 LOINC #MONO L=0.1 H=0.9 59641-0 LOINC #EOS L=0.0 H=0.6 712-0 LOINC #BASO L=0.00 H=0.10 07160-4 LOINC #IM GRANS L=0.0 H=7.0 24070-1 LOINC %IM GRANS L=0.0 H=5.0 34688-1 LOINC %NRB L=0.0 H=0.2 26359-6 LOINC #NRB L=0.000 H=0.012 64110-7 LOINC MANUAL DIFF SEE BELOW A SEG [...] L=0 H=0 BLASTS 0 % L=0 H=0 71283-8 LOINC PANDA LYMPHS 0.00 % L=0.00 H=5.00 SMUDGE CELLS 0 % L=0 H=0 NRBC 0.0 % L=0.0 H=0.0 PLTS DECREASED NEUT # 0.7 10^3uL L=1.9 H=7.6 LL LYMPH # 1.2 10^3uL L=0.9 H=4.9 MONO # 0.0 10^3uL L=0.1 H=0.9 L EOS # 0.1 10^3uL L=0.0 H=0.6 712-0 LOINC BASO # 0.0 10^3uL L=0.0 H=0.1 38279-2 LOINC RBC MORPH NOT INDICATED COMPREHENSIVE METABOLIC PANE L - Collect Date/Time: 01/08/2025 13:23 [facility] ID: [id number] [place], [place], [id number] LOINC: 48943-0 Test Value Unit Reference Range Code Code [...] 2028-9 LOINC ANION GAP 10 L=10 H=20 06529-1 LOINC OSMOLALITY 288 mOs/kG L=280 H=296 94179-5 LOINC BUN/CREAT 13.3 3097-3 LOINC CALCIUM 8.9 mg/dL L=8.3 H=10.5 59761-9 LOINC AST 23 U/L L=15 H=46 1920-8 LOINC ALT 15 U/L L=9 H=72 1742-6 LOINC ALKALINE PHOS 61 U/L L=38 H=126 6768-6 LOINC TOTAL BILI 0.3 mg/dL L=0.2 H=1.3 1975-2 LOINC ALBUMIN 3.9 G/dL L=3.5 H=5.0 1751-7 LOINC TOTAL PROTEIN 7.6 g/L L=6.3 H=8.2 2885-2 LOINC A/G RATIO 1.1 99415-6 LOINC AGE 59 30535-4 LOINC eGFR NON-AFR 69 ml/min eGFR AFR AMER 83 ml/min Social History Type Status Start Date End Date Code Code Syst em Smoking History Unknown if ever smoked [address] Sex Female Hospital Discharge Instructions [...]
--- OUTSIDE RECORDS SUMMARY | 2025-03-18 12:01 | XMS_ITS ---
Author Organization Unknown Address [address] [place] [phone] Phone Care Team Providers Care Trimmer And Reinforcer Name Role Phone PIPPA GREGORIONISHA Attending Unavailable JOHAN SULLIVAN Primary Unavailable Immunization Immunization Date Status Additional Notes Code Code System Tdap 03/26/2021 Completed 115 CVX Social History Type Status Start Date End Date Code Code Syst em Smoking History Unknown if ever smoked [address] Sex Female Vital Signs Vital Sign Value Unit Cameron Value Cameron Unit Date/Time Recent/Initial? Code Code System Body Mass Index 34.97 kg/m2 02/04/2025 09:56 Initial 99439 -5 [facility] Systolic Blood Pressure 168 mm[Hg] 02/04/2025 09:53 Initial 8480- 6 LOINC Diastolic Blood Pressure 73 mm[Hg] 02/04/2025 09:53 Initial 8462- 4 INC Body Surface Area 2.24 m2 02/04/2025 09:56 Initial 3140- 1 LOINC Height 172.720 0 cm 68.00 in 02/04/2025 09:56 Initial 8302- 2 LOINC O2 Saturation 100 % 2024 09:53 Initial 74286 -5 INC Pulse 99.0 /min 02/04/2025 09:53 Initial 8867- 4 LOINC Respiration 22 /min 02/05/20 09:53 Initial 9279- 1 LOINC Temperature 36.3 Freda 97.3 F 02/05/20 09:53 Initial 8310- 5 LOINC Weight 104.33 kg 230.00 lbs 02/04/2025 09:56 Initial 07765 -7 INC Hospital Discharge Instructions Should you [...]
[2025-03-18 12:18] LABS: Hematocrit 23.1 % (35.0-49.0); Hemoglobin 7.5 g/dL (12.0-15.0); Immature Platelet Fraction Pct 3.7 % (1.0-7.0); Mean Corpuscular HGB Conc 32.5 g/dL (32-36); Mean Corpuscular Hemoglobin 29.4 pg (27.0-31.0); Mean Corpuscular Volume 90.6 fL (78.0-102.0); Mean Platelet Volume 12.8 fl (9.2-11.8); Platelet Count Result 39 K/mm3 (150-420); Red Blood Count 2.55 M/mm3 (4.20-5.40); Red Cell Distribution Width 17.3 % (11.6-14.4)
[2025-03-18 12:19] LABS: White Blood Count 0.5 K/mm3 (4.8-10.8)
[2025-03-18 12:27] LABS: Alanine Aminotransferase 14 U/L (6-35); Albumin Level 3.2 g/dL (3.5-5.1); Alkaline Phosphatase 57 U/L (38-126); Anion Gap 2 mmol/L (4-12); Aspartate Amino Transferase 21 U/L (14-36); Bilirubin,Total 0.8 mg/dL (0.2-1.3); Blood Urea Nitrogen 7 mg/dL (7-17); Carbon Dioxide 27 mmol/L (22-30); Chloride 105 mmol/L (98-107); Estimated Glomerular Filt Rate > 60; Glucose 112 mg/dL (65-110); Osmolality Calculated 277 mOsm/kg (285-295); Potassium 3.7 mmol/L (3.4-5.0); Sodium 134 mmol/L (137-145); Total Protein 6.5 g/dL (6.3-8.2)
[2025-03-18 12:39] LABS: Band Neutrophils Percent 0 % (0-6); Neutrophils Percent Manual 12 % (46-73); Total Cells Counted 100
[2025-03-18 12:40] LABS: Lymphocytes Absolute Manual 0.32 K/mm3 (1.1-4.5); Lymphocytes Percent Manual 64 % (18-44); Monocytes Absolute Manual 0.02 K/mm3 (0.1-0.90); Monocytes Percent Manual 4 % (3-9); Neutrophils Absolute Manual 0.06 K/mm3 (1.3-6.7); Platelet Estimate Decreased (Adequate)
--- NOTE | 2025-03-18 12:44 | PC.NURSE ---
Patient labs drawn and results called to Dr. Mar. Repeat labs on Tuesday. No other new orders.
== END 2025-03-18 11:46 | disposition home or self-care (01) ==
LOC: CHSTREATRM 11:46
PROVIDERS: PCP Family Medicine; Visit Provider Internal Medicine Hematology
DX: D46.9 Myelodysplastic syndrome, unspecified (principal)
CPT/HCPCS: 36415; 80053; 85025; 85055; 86850; 86900; 86901

== ENCOUNTER 2025-03-20 14:05 | Outpatient (CLI) | payer MEDICARE, SELFPAY ==
--- OUTSIDE RECORDS SUMMARY | 2025-03-20 14:09 | XMS_ITS | Encounter Summary ---
Author Organization [facility] Address [address] [place] [phone] Care Team Providers Care Cytotechnologist/Cytology Supervisor Name Role Phone Reagan Fonseca MD Primary Care Provider [phone] Encounter Details Date Type Department Care Team (Late st Contact Info) Description 12/03/2017 Abstract [facility] CONVERSION [address] [place] [address] , Generic Conversion, Social History Tobacco Use [...] on filedocumented in this encounter Care Teams Cytotechnologist/Cytology Supervisor Relationship Specialty Start Date End Date Reagan Fonseca MD [address] [place] [address] PCP - General FAMILY PRACTICE 01/26/25 documented as of this encounter
--- OUTSIDE RECORDS SUMMARY | 2025-03-20 14:09 | XMS_ITS | Clinical Summary ---
Author Organization [facility] Address [facility] [place] [address] Care Team Providers Care [employer] Name Role Phone Reagan Fonseca MD Primary Care Provider [phone] Allergies Active Allergy Reactions Criticality Noted Date Comments Amoxicillin Nausea and Vomiting Low 01/26/2025 Medications traZODone (DESYREL) 100 MG tablet Take 1 tablet (100 mg total) by mouth nightly at bedtime. Active ALPRAZolam (XANAX) 0.25 MG tablet Take 1 tablet (0.25 mg total) by mouth nightly as needed for Sleep. Active acyclovir (ZOVIRAX) 400 MG tablet Take 1 tablet (400 mg total) by mouth 2 (two) times daily. 01/22/20 25 Active albuterol sulfate HFA 108 (90 Base) MCG/ACT inhaler Inhale 2 puffs into the lungs every 6 (six) hours as needed. 10/29/19 25 Active albuterol (PROVENTIL) (2.5 MG/3ML) 0.083% nebulizer solution Take 3 mLs (2.5 mg total) by nebulization every 6 (six) hours as needed. 12/29/19 25 Active fluconazole (DIFLUCAN) 150 MG tablet Take 1 tablet (150 mg total) by mouth daily. 12/29/19 25 Active ADVAIR HFA 115-21 MCG/ACT inhaler Inhale 2 puffs into the lungs 2 (two) times daily. 12/19/19 25 Active oxyCODONE immediate release (ROXICODONE) 5 MG immediate release tablet Take 1 tablet (5 mg total) by mouth every 6 (six) hours as needed. 01/24/20 25 Active pantoprazole EC (PROTONIX) 40 MG tablet Take 1 tablet (40 mg total) by mouth daily. 01/05/20 Active SENEXON-S 8.6-50 MG tablet Take 2 tablets by mouth 2 (two) times daily. 01/05/20 Active levoFLOXacin (LEVAQUIN) 500 MG tablet Take 1 tablet (500 mg total) by mouth daily. 01/05/20 25 025 Discontinu ed(Error) omeprazole (PRILOSEC) 40 MG capsule Take 1 capsule (40 mg total) by mouth daily. 11/29/19 25 025 Discontinu ed(Error) predniSONE (DELTASONE) 20 MG tablet Take 2 tablets (40 mg total) by mouth daily for 3 days. 6 tablet 03/12/20 25 025 Active Problems Problem Noted Date Diagnosed Date Thrombocytopenia 03/07/2025 Encounters Date Type Department Care Team Description 03/07/2025 9:51 PM CDT - 03/12/2025 5:58 PM CDT Hospital Encounter [facility] [address] [place] [address] Hansel Strickland MD Sheikh, MD Kory Alonso, MD Marcelle Discharge Disposition: Home or Self Care (Routine Discharge) 03/07/2025 Travel 01/26/2025 2:50 PM CDT - 01/26/2025 8:40 PM CDT Emergency [place] [place] [address] Bharat Young, Medical Problem Discharge Disposition: Home or Self Care (Routine Discharge) 01/26/2025 Travel from Last 3 Months Social History Tobacco Use Types Packs/Day Years Used Date Smoking Tobacco: Former Cigarettes Smokeless Tobacco: Never Tobacco Cessation:Counseling Given: Not Answered Alcohol Use Standard Drinks/Week Comments Not Currently 0 (1 standard drink = 0.6 oz pur e alcohol) B1300 Health Literacy Answer Date Recor ded How often do you need to hav e someone help you when you read instructions, pamphlets, or other written material from your doctor or pharmacy? Rarely 03/08/2025 [place] Utilities Answer Date Recorded In the past 12 months has e [employer], or water [employer] threatened to shut off services in your home? No 03/08/2025 Humiliation, Afraid, Rape, and Kick questionnair e Answer Date Recorded Within the last year, have y ou been afraid of your partner or ex-partner? No 03/08/2025 Within the last year, have y ou been humiliated or emotionally abused in other ways by your partner or ex-partner? No Within the last year, have y ou been kicked, hit, slapped, or otherwise physically hurt by your partner or ex-partner? No 03/08/2025 Within the last year, have y ou been raped or forced to have any kind of sexual activity by your partner or ex-partner? No 03/08/2025 Social Connection and Isolation Panel [NHANES] A nswer Date Recorded In a typical week, how many times do you talk on the phone with family, friends, or neighbors? Once a week 03/08/2025 How often do you get together with friends or re latives? Once a week 03/08/2025 How often do you attend restorationism or baptist serv ices? Never 03/08/2025 Do you belong to any clubs o r organizations such as restorationism groups, unions, fraternal or athletic groups, or school groups? No 03/08/2025 How often do you attend meet ings of the clubs or organizations you belong to? Never 03/08/2025 Are you , , di vorced, , never , or living with a partner? Never 03/08/2025 AUDIT-C Answer Date Recorded Q1: How often do you have a drink containing alcohol? Never 03/08/2025 Q2: How many drinks containi ng alcohol do you have on a typical day when you are drinking? Patient does not drink Q3: How often do you have si x or more drinks on one occasion? Never 03/08/2025 Overall Financial Resource Strain (CARDIA) Answe r Date Recorded How hard is it for you to pa y for the very basics like food, housing, medical care, and heating? Patient declined 03/08/2025 [facility] - Occupational Stress Questionnaire Answer Date Recorded Do you feel stress - tense, restless, nervous, or anxious, or unable to sleep at night because your mind is troubled all the time - these days? To some extent 03/08/2025 Exercise Vital Sign Answer Date Recorde d On average, how many days pe r week do you engage in moderate to strenuous exercise (like a brisk walk)? 0 days 03/08/2025 On average, how many minutes do you engage in exercise at this level? 0 min 03/08/2025 Hunger Vital Sign Answer Date Recorded Within the past 12 months, y ou worried that your food would run out before you got the money to buy more. Patient declined Within the past 12 months, t he food you bought just didn't last and you didn't have money to get more. Patient declined PRAPARE - Transportation Answer Date Re corded In the past 12 months, has l ack of transportation kept you from medical appointments or from getting medications? No 02/18 In the past 12 months, has l ack of transportation kept you from meetings, work, or from getting things needed for daily living? No 03/08/2025 Housing Stability Vital Sign Answer Erik e Recorded In the last 12 months, was t here a time when you were not able to pay the mortgage or rent on time? No 03/08/2025 In the past 12 months, how m any times have you moved where you were living? 0 03/08/2025 At any time in the past 12 m [facility], were you homeless or living in a long term (including now)? No 03/08/2025 Comments No Sex and Gender Information Value Date Recorded Sex Assigned at Female 01/26/2025 3:17 PM CDT Legal Sex Female 4:11 PM CDT Gender Identity Not on file Sexual Orientation Not on file Last Filed Vital Signs Vital Sign Reading Time Taken Comments Blood Pressure 155/83 03/12/2025 5:32 PM CDT Pulse 85 03/12/2025 5:32 PM CDT Temperature 36.9 C (98.4 F) 03/12/2025 5:32 PM CDT Respiratory Rate 16 03/12/2025 2:03 PM CDT Oxygen Saturation 95% 03/12/2025 5:32 PM CDT Inhaled Oxygen Concentration - - Weight 98.7 kg (217 lb 9.5 oz) 03/12/2025 4:51 A M CDT Height 172.7 cm (5' 7.99) 03/07/2025 9:56 PM CD T Body Mass Index 33.09 03/07/2025 9:56 PM CDT Plan of Treatment Health Maintenance [...] 2017 COVID-19 Vaccine (2023-2 5 season) 2024 DTaP, Tdap and Td [...] Procedure Name Priority Date/Time Associated Diagnosis Comments POCT GLUCOSE - DOCKED DEVICE Routine 03/12/2025 4:04 PM CDT TRANSFUSE RED BLOOD CELLS Routine 03/12/2025 1:45 PM CDT POCT GLUCOSE - DOCKED DEVICE Routine 03/12/2025 11:55 AM CDT TYPE & SCREEN STAT 03/12/2025 11:15 AM CDT TRANSFUSE PLATELET PHERESIS Routine 03/12/2025 10:18 AM CDT ORDER PLATELET PHERESIS Routine 03/12/20 6:46 AM CDT POCT GLUCOSE - DOCKED DEVICE Routine 03/12/2025 5:42 AM CDT CBC W/DIFF AUTOMATED Routine 03/12/2025 3:50 AM CDT POCT GLUCOSE - DOCKED DEVICE Routine 03/11/2025 8:27 PM CDT TRANSFUSE PLATELET PHERESIS Routine 03/11/2025 6:33 PM CDT POCT GLUCOSE - DOCKED DEVICE Routine 03/11/2025 4:53 PM CDT TRANSFUSE PLATELET PHERESIS Routine 03/11/2025 4:20 PM CDT ORDER PLATELET PHERESIS Routine 03/11/20 11:05 AM CDT POCT GLUCOSE - DOCKED DEVICE Routine 03/11/2025 10:18 AM CDT CBC W/DIFF AUTOMATED Routine 03/11/2025 10:05 AM CDT BASIC METABOLIC PANEL STAT 03/11/2025 9:42 AM CDT POCT GLUCOSE - DOCKED DEVICE Routine 03/11/2025 4:54 AM CDT POCT GLUCOSE - DOCKED DEVICE Routine 03/11/2025 12:00 AM CDT POCT GLUCOSE - DOCKED DEVICE Routine 03/10/2025 9:47 PM CDT PHOSPHORUS, INORGANIC PHOSPHATE Routine 03/10/2025 2:41 AM CDT MAGNESIUM Routine 03/10/2025 2:41 AM CDT BASIC METABOLIC PANEL Routine 03/10/2025 2:41 AM CDT CBC W/DIFF AUTOMATED Routine 03/10/2025 2:41 AM CDT BLOOD GAS, VENOUS Routine 03/09/2025 5:2 7 PM CDT CBC W/DIFF AUTOMATED Routine 03/09/2025 2:30 AM CDT BASIC METABOLIC PANEL Routine 03/09/2025 2:30 AM CDT XR CHEST PORTABLE STAT 03/08/2025 11: 08 AM CDT MISCELLANEOUS LAB TEST Routine 11:07 AM CDT FLOW CYTOMETRY, PERIPHERAL BLD Routine 03/08/2025 11:07 AM CDT MISCELLANEOUS LAB TEST Routine 11:07 AM CDT TRANSFUSE RED BLOOD CELLS Routine 03/08/2025 11:03 AM CDT TRANSFUSE PLATELET PHERESIS Routine 03/08/2025 5:07 AM CDT TYPE & SCREEN STAT 03/08/2025 3:47 AM CDT ORDER PLATELET PHERESIS Routine 03/08/20 3:12 AM CDT BASIC METABOLIC PANEL Routine 03/08/2025 1:53 AM CDT CBC W/DIFF AUTOMATED Routine 03/08/2025 1:[address], AUTO Routine 03/07/2025 11:43 PM CDT CBC W/DIFF AUTOMATED Routine 03/07/2025 11:43 PM CDT THYROXINE, FREE (FT4) Routine 03/07/2025 11:41 PM CDT PROCALCITONIN (PCT) Routine 03/07/2025 1 1:41 PM CDT HC PROTHROMBIN TIME (PT) Routine 03/07/2025 11:41 PM CDT TSH W/REFLEX Routine 03/07/2025 11:41 PM CDT VITAMIN B-12 Routine 03/07/2025 11:41 PM CDT IRON SAT PANEL (IRON,IBC,%SAT) Routine 03/07/2025 11:41 PM CDT FOLIC ACID SERUM Routine 03/07/2025 11:4 1 PM CDT [id number] ACT W/RFLX INHIBITOR Routine 03/07/2025 11:41 PM CDT EBV AB PANEL COMPREHENSIVE Routine 03/07/2025 11:41 PM CDT CMV DNA QUANT REAL TIME PCR Routine 03/07/2025 11:41 PM CDT LDH, LACTATE DEHYDROGENASE Routine 03/07/2025 11:41 PM CDT BLOOD SMEAR INTERPRETATION BY Routine 03/07/2025 11:41 PM CDT C-REACTIVE PROTEIN Routine 03/07/2025 11 :41 PM CDT SED RATE, ERYTHROCYTE (ESR) Routine 03/07/2025 11:41 PM CDT COMPREHENSIVE METABOLIC PANEL Routine 03/07/2025 11:41 PM CDT POCT GLUCOSE - DOCKED DEVICE Routine 03/07/2025 11:31 PM CDT PATHOLOGY Routine 03/07/2025 12:00 AM CDT TRANSFUSE RED BLOOD CELLS STAT 01/26/2025 6:08 PM CDT TYPE & SCREEN STAT 01/26/2025 3:25 PM CDT BASIC METABOLIC PANEL STAT 01/26/2025 3:25 PM CDT PROTHROMBIN TIME, VENOUS STAT 01/26/2025 3:25 PM CDT CBC W/DIFF AUTOMATED STAT 01/26/2025 3:25 PM CDT from Last 3 Months Results * TRANSFUSE RED BLOOD CELLS (03/12/2025 5:39 PM CDT) Only the most recent of3 resultswithin the time period is included. us Marcelle Rich MD NURSING TREATMENT ORDERABLES - B LOOD ADMIN Final Result * (ABNORMAL) POCT glucose (03/12/2025 4:04 PM CDT) Only the most recent of10 resultswithin the time period is included. GLUCOSE POC 170(H) 70 - 109 03/12/2025 4:08 PM CDT [facility] 03/12/2025 4:04 PM CDT Marcelle Rich MD POCT ORDERABLES - DEVICE Final R esult [facility] [address] [place] [address], [id number] * TRANSFUSE PLATELET PHERESIS (03/12/2025 1:41 PM CDT) Only the most recent of4 resultswithin the time period is included. Phani Sarmiento MD NURSING TREATMENT ORDERAB LES - BLOOD ADMIN Final Result * TYPE & SCREEN (03/12/2025 11:15 AM CDT) Only the most recent of3 resultswithin the time period is included. UNITS ORDERED 1 03/12/2025 11:01 AM CDT [facility] ABO/RH A POSITIVE 03/12/2025 1:38 PM CDT [facility] ANTIBODY SCREEN NEGATIVE 1:38 PM CDT [facility] SAMPLE EXPIRATION 03/15/2025,2359 03/12/2025 12:56 PM CDT [facility] BLOOD UNIT NUMBER [id number] 03/12/2025 1:38 PM CDT [facility] PRODUCT: PC LEUKOPOOR 03/12/2025 1:38 PM CDT [facility] UNIT DIVISION 00 03/12/2025 1:38 PM CDT [facility] BLOOD UNIT STATUS TRANSFUSED,FINAL 03/13/2025 6:44 AM CDT [facility] ISSUE DATE/TIME [id number] 6:44 AM CDT [facility] PRODUCT CODE [id number] 03/13/2025 6:44 AM CDT [facility] ABO/RH Unit A POS 03/13/2025 6:44 AM CDT [facility] ABO/RH UNIT ISBT CODE [id number] 03/13/2025 6:44 AM CDT [facility] BLOOD UNIT EXPIRATION DATE [id number] 03/13/2025 6:44 AM CDT [facility] TRANSFUSION STATUS OK TO TRANSFUSE 03/12/2025 1:38 PM CDT [facility] CROSSMATCH COMPATIBLE-EXM 03/12/2025 1:38 PM CDT [facility] 03/12/2025 11:1 5 AM CDT Marcelle Rich MD BLOOD BANK TEST ORDERABLES Final Result [facility] [address] [place] [address], [id number] * ORDER PLATELET PHERESIS, 1 Units (03/12/2025 6:46 AM CDT) Only the most recent of3 resultswithin the time period is included. UNITS ORDERED 1 03/12/2025 6:46 AM CDT [facility] BLOOD UNIT NUMBER [id number] 03/12/2025 9:57 AM CDT [facility] PRODUCT: PLT PHERESIS LEUKORED 7D BAG 2 03/12/2025 9:57 AM CDT [facility] UNIT DIVISION 00 03/12/2025 9:57 AM CDT [facility] BLOOD UNIT STATUS TRANSFUSED,FINAL 03/13/2025 6:44 AM CDT [facility] ISSUE DATE/TIME [id number] 025 6:44 AM CDT [facility] PRODUCT CODE [id number] 03/13/2025 6:44 AM CDT [facility] ABO/RH Unit AB POS 03/13/2025 6:44 AM CDT [facility] ABO/RH UNIT ISBT CODE [id number] 03/13/2025 6:44 AM CDT [facility] BLOOD UNIT EXPIRATION DATE [id number] 03/13/2025 6:44 AM CDT [facility] TRANSFUSION STATUS OK TO TRANSFUSE 03/12/2025 9:57 AM CDT [facility] 03/12/2025 6:46 AM CDT Phani Sarmiento MD BLOOD BANK PRODUCT ORDERA BLES Final Result [facility] [address] [place] [address], [id number] * (ABNORMAL) CBC W/DIFF AUTOMATED (03/12/2025 3:50 AM CDT) Only the most recent of7 resultswithin the time period is included. WBC 0.54(L) 4.00 - 10.80 x10'3/uL 03/12/2025 4:53 AM CDT [facility] RBC 2.40(L) 4.10 - 5.40 x10'6/uL 03/12/2025 4:53 AM CDT [facility] HGB 7.1(L) 12.0 - 16.0 G/DL 03/12/2025 4:53 AM CDT [facility] HCT 21.7(L) 36.0 - 47.0 % 03/12/2025 4:53 AM CDT [facility] MCV 90.4 78.0 - 100.0 FL 03/12/2025 4:53 AM CDT [facility] MCH 29.6 27.0 - 31.0 PG 03/12/2025 4:53 AM CDT [facility] MCHC 32.7(L) 33.0 - 36.0 G/DL 03/12/2025 4:53 AM CDT [facility] RDW 17.0(H) 11.5 - 14.5 % 03/12/2025 4:53 AM CDT [facility] PLT 9(LL) 150 - 350 x10'3/uL 03/12/2025 6:54 AM CDT [facility] Comment: This result has been called to [id number] by [id number] on 03/12/2025 05:55:00, and has been read back. DIFFERENTIAL TYPE MANUAL DIFFERENTIAL 03/12/2025 6:57 AM CDT [facility] NRBC % 2.0 % 03/12/2025 6:57 AM CDT [facility] SEG NEUTROPHILS 29 % 6:57 AM CDT [facility] LYMPHOCYTES 63 % 03/12/2025 6:57 AM CDT [facility] MONOCYTES 2 % 03/12/2025 6:57 AM CDT [facility] EOSINOPHILS 2 % 03/12/2025 6:57 AM CDT [facility] BASOPHILS 0 % 03/12/2025 6:57 AM CDT [facility] BANDS 2 % 03/12/2025 6:57 AM CDT [facility] ABS. NEUTROPHILS 0.17(LL) 1.60 - 8.30 x10'3/uL 03/12/2025 6:57 AM CDT [facility] Comment: This patient has had a critical value result for this test called within the past 3 months. ABS. LYMPHOCYTES 0.35(L) 0.80 - 4.70 x10'3/uL 03/12/2025 6:57 AM CDT [facility] ABS. MONOCYTES 0.01 0.00 - 1.50 x10'3/uL 03/12/2025 6:57 AM CDT [facility] ABS. EOSINOPHILS 0.01 0.00 - 0.40 x10'3/uL 03/12/2025 6:57 AM CDT [facility] ABS. BASOPHILS 0.00 0.00 - 0.20 x10'3/uL 03/12/2025 6:57 AM CDT [facility] ABS. NUCLEATED RBC'S 0.01 0.00 - 0.01 x10'3/uL 03/12/2025 6:57 AM CDT [facility] RBC MORPHOLOGY SLIDE REVIEWED 2024 6:57 AM CDT [facility] ANISO SLIGHT 03/12/2025 6:57 AM CDT [facility] POIKLO SLIGHT 03/12/2025 6:57 AM CDT [facility] OVALOCYTES PRESENT 03/12/2025 6:57 AM CDT [facility] TEAR DROP PRESENT 03/12/2025 6:57 AM CDT [facility] JOVANNA PRESENT 03/12/2025 6:57 AM CDT [facility] PLT EST. DECREASED 03/12/2025 6:57 AM CDT [facility] 03/12/2025 3:50 AM CDT us Marcelle Rich MD LABORATORY Final Result [facility] [address] [place] [address], [id number] * (ABNORMAL) BASIC METABOLIC PANEL (03/11/2025 9:42 AM CDT) Only the most recent of5 resultswithin the time period is included. SODIUM S/P/B 139 136 - 145 MMOL/L 03/11/2025 10:19 AM CDT [facility] POTASSIUM S/P/B 3.4(L) 3.5 - 5.1 MMOL/L 03/11/2025 10:19 AM CDT [facility] CHLORIDE S/P/B 106 97 - 115 MMOL/L 03/11/2025 10:19 AM T [facility] CO2 27.1 21.0 - 32.0 MMOL/L 03/11/2025 10:19 AM T [facility] GLUCOSE 243(H) 74 - 106 MG/DL 03/11/2025 10:19 AM T [facility] BUN 15 7 - 18 MG/DL 03/11/2025 10:19 AM T [facility] CREATININE S/P/B 0.90 0.55 - 1.02 MG/DL 03/11/2025 10:19 AM T [facility] CALCIUM S/P/B 8.6 8.5 - 10.1 MG/DL 03/11/2025 10:19 AM [facility] ANION GAP 5.9 2.0 - 10.0 MMOL/L 03/11/2025 10:19 AM T [facility] OSMOLALITY (CALC) 297 MOSM/KG 025 10:19 AM [facility] Comment:REFERENCE RANGE NOT ESTABLISHED GFR ESTIMATE 74(L) >90 ML/MIN/1. 73 M2 03/11/2025 10:19 AM T [facility] GFR NOTES GFR REFERENCE S: 03/11/2025 10:19 AM T [facility] Comment: THE ESTIMATED GFR IS CALCULATED [...] ml/min/1.73 m2 G5,KIDNEY FAILURE: <15 ml/min/1.73 m2 03/11/2025 9:42 AM CDT us Marcelle Rich MD LABORATORY Final Result Performing Organization Address [facility] de Phone Number [facility] [address] [place] [address], [id number] * PHOSPHORUS, INORGANIC PHOSPHATE (03/10/2025 2:41 AM CDT) PHOSPHORUS 3.5 2.5 - 4.9 MG/DL 03/10/2025 3:34 AM CDT [facility] 03/10/2025 2:41 AM CDT us Marcelle Rich MD LABORATORY Final Result Performing Organization Address [facility] de Phone Number [facility] [address] [place] [address], [place] [phone] * MAGNESIUM (03/10/2025 2:41 AM CDT) MAGNESIUM 1.9 1.6 - 2.6 MG/DL 03/10/2025 3:34 AM CDT [facility] 03/10/2025 2:41 AM CDT us Marcelle Rich MD LABORATORY Final Result Performing Organization Address [facility] de Phone Number [facility] [address] [place] [address], [phone] * (ABNORMAL) Blood gas, venous (03/09/2025 5:27 PM CDT) PH VENOUS 7.39 7.32 - 7.42 03/09/2025 5:37 PM CDT [facility] PCO2 VENOUS 47.7 41.0 - 51.0 MMHG 03/09/2025 5:37 PM CDT [facility] PO2 VENOUS 31.9 25.0 - 40.0 MM HG 03/09/2025 5:37 PM CDT [facility] BICARB VENOUS 28.0 24 - 28 MMOL/L 03/09/2025 5:37 PM CDT [facility] TOTAL CO2 VENOUS 29.5(H) 25.0 - 29.0 MMOL/L 03/09/2025 5:37 PM CDT [facility] BASE EXCESS VENOUS 3.1(H) 0 - 2 MMOL/L 03/09/2025 5:37 PM CDT [facility] O2 SAT VENOUS 56 <75 % 03/09/2025 5:37 PM CDT [facility] 03/09/2025 5:27 PM CDT Marcelle Rich MD LABORATORY Final Result [facility] [address] [place] [address], [id number] * XR CHEST PORTABLE (03/08/2025 11:08 AM CDT) Anatomical Region Laterality Modality Chest Radiographic Aishwarya ging 03/08/2025 12:2 3 PM CDT Impressions 03/08/2025 12:24 PM CDT IMPRESSION: 1. Mild pulmonary vascular congestion. 2. No focal consolidation or pneumothorax. Ordered By: MARCELLE RICH Interpreted By: Bk Perez MD, 03/08/2025 12:23 PM Narrative 03/08/2025 12:24 PM CDT [facility] [address] [place], [place] [address] PROCEDURE: XR CHEST PORTABLE. 03/08/2025 11:06 AM. TECHNIQUE: A single view of the chest (AP or PA) was performed. HISTORY: Dyspnea. COMPARISON: PA and lateral chest radiograph, 11/27/2015. FINDINGS: Support Devices: There is a catheter tip terminating within the lower superior vena cava. Cardiac Silhouette/Mediastinum/Griselda: The cardiac, mediastinal, and hilar contours are unchanged in appearance. Lungs/Pleural Spaces: No focal consolidation. The pleural spaces are clear. Mild central pulmonary vascular congestion. Chest Wall/Diaphragm/Upper Abdomen: The thoracic musculoskeletal structures and the upper abdomen are unchanged in appearance. Procedure Note Bk Perez MD - 03/08/2025 [facility] [address] [place], [place] [address] PROCEDURE: XR CHEST PORTABLE. 03/08/2025 11:06 AM. TECHNIQUE: A single view of the chest (AP or PA) was performed. HISTORY: Dyspnea. COMPARISON: PA and lateral chest radiograph, 11/27/2015. FINDINGS: Support Devices: There is a catheter tip terminating within the lowersuperior vena cava. Cardiac Silhouette/Mediastinum/Griselda: The cardiac, mediastinal, and hilarcontours are unchanged in appearance. Lungs/Pleural Spaces: No focal consolidation. The pleural spaces areclear. Mild central pulmonary vascular congestion. Chest Wall/Diaphragm/Upper Abdomen: The thoracic musculoskeletalstructures and the upper abdomen are unchanged in appearance. IMPRESSION: 1. Mild pulmonary vascular congestion. 2. No focal consolidation or pneumothorax. Ordered By: MARCELLE RICH Interpreted By: Bk Perez MD, 03/08/2025 12:23 PM Marcelle Rich MD GENERAL IMAGING Final Result * MISCELLANEOUS LAB TEST (03/08/2025 11:07 AM CDT) TEST NAME: LEUKEMIA LYMPHOMA EVAL TEST 42515 03/08/2025 1:46 PM CDT [facility] LAB SPECIMEN TYPE PERIPHERAL BLOOD EDTA, ROOM TEMP 03/08/2025 1:46 PM CDT [facility] LAB TEST RESULT: Flexitest 1 03/12/2025 11:42 AM CDT [employer] REGGIE VÁSQUEZ Comment: Flexitest 1 CLINICAL INFORMATION: NOT PROVIDED SPECIMEN TYPE: PERIPHERAL BLOOD VIABILITY: 64 % INTERPRETATION: GRANULOCYTOPENIA WITH NO DISCRETE ATYPICAL IMMUNOPHENOTYPIC FINDINGS (SEE COMMENT) Granulocytes are proportionally decreased but largely immunophenotypically mature with no detectable aberrant marker expression. Blasts are not increased. Lymphocytes are proportionally increased and include polyclonal B cells, NK cells and immunophenotypically normal CD4+ and CD8+ T cells. No evidence of a clonal lymphoid expansion. COMMENT: Reduced cell viability in sample may affect granulocyte enumeration; correlate with CBC findings. Flow Cytometry reviewed by Hawa Morgan M.D. SAMPLE DESCRIPTION: The analyzed WBCs in the sample include 69% lymphocytes, 4% monocytes and 27% granulocytes. GATING STRATEGY: Granulocytes and lymphocytes were selected for analysis based on CD45 staining intensity, forward scatter and side scatter. Wilton A - Granulocytes Marker Percentage CD2 1 CD3 0 CD4 0 CD5 0 CD7 1 CD8 0 CD10 87 CD11c 96 CD13 91 CD19 0 CD19+CD5+ 0 CD20 0 CD23 1 CD33 3 CD34 0 CD38 2 CD45 100 CD56+CD3- 2 CD64 0 CD117 0 HLA_DR 2 Struble CD19+ 0 Lambda CD19+ 0 K/L Ratio NA Wilton B - Lymphocytes Marker Percentage CD2 66 CD3 62 CD4 42 CD5 60 CD7 53 CD8 19 CD10 2 CD11c 6 CD13 0 CD19 22 CD19+CD5+ 0 CD20 22 CD23 14 CD33 0 CD34 0 CD38 46 CD45 100 CD56+CD3- 13 CD64 0 CD117 0 HLA_DR 25 Struble CD19+ 10 Lambda CD19+ 9 K/L Ratio 1.11 This test was developed and its analytical performance characteristics have been determined by [facility], [place], [place]. It has not been cleared or approved by the U.S. Food and Drug Administration. This assay has been validated pursuant to the CLIA regulations and is used for clinical purposes. NUMBER OF MARKERS: 22 Test Performed by [facility], [facility], [address] [place], [place] Noe Hernandez M.D., Ph.D., Director of Laboratories , [facility] [id number] 03/08/2025 11:0 7 AM CDT us Almaz Hollins MD LABORATORY Final Result Performing Organization Address City/[facility] Co de Phone Number [employer] [address] , [place] [phone] [facility] [address] [place] [address], [place] [phone] * FLOW CYTOMETRY, PERIPHERAL BLD (03/08/2025 11:07 AM CDT) FLOW CYTOMETRY TEST SENT TO [facility]. RESULTS WILL DISPLAY REF LAB TEST RESULT UNDER MISC TAB WHEN FINALIZED. 03/08/2025 12:12 PM CDT [facility] 03/08/2025 11:0 7 AM CDT us Almaz Hollins MD LABORATORY Final Result Performing Organization Address [facility] Co de Phone Number [facility] [address] [place] [address], [place] [phone] * MISCELLANEOUS LAB TEST (03/08/2025 11:07 AM CDT) TEST NAME: HLA TYPING FOR PLATELETS, ALLOIMMUNIZATION 03/08/2025 8:04 AM CDT [facility] TEST RESULT: SEE BLOOD BANK FOR TESTING RESULTS 03/11/2025 7:37 AM CDT [facility] 03/08/2025 11:0 7 AM CDT us Almaz Hollins MD LABORATORY Final Result Performing Organization Address [facility] de Phone Number [facility] [address] [place] [address], [id number] * (ABNORMAL) RETICULOCYTE CT, AUTO (03/07/2025 11:43 PM CDT) Pathologist [facility] % RETICULOCYTE COUNT 0.3(L) 0.6 - 2.3 % 03/08/2025 1:02 AM CDT [facility] ABSOLUTE RETICULOCYTE 0.01(L) 0.02 - 0.10 x10'6/uL 03/08/2025 1:02 AM CDT [facility] IMMATURE RETIC FRACTION 5.1 3.0 - 15.9 % 03/08/2025 1:02 AM CDT [facility] RETIC HGB 37.7(H) 28.0 - 35.0 PG 03/08/2025 1:02 AM CDT [facility] 03/07/2025 11:4 3 PM CDT Wesly Steve MD LABORATORY Final Result Performing Organization Address [facility] de Phone Number [facility] [address] [place] [address], [phone] * (ABNORMAL) EBV (RHONDA CAMP VIRUS) AB PANEL COMPREHENSIVE (INCL. EARLY AG D AB) (03/07/2025 11:41 PM CDT) [facility] EBV EARLY ANTIGEN-D AB IGG 71.00(H) <9.00 U/mL 03/12/2025 7:03 PM CDT [employer] DAIJA COX Comment: The potential exists for cross-reactivity with HIV (Human Immunodeficiency Virus) which could cause a false positive EBV-EA result. U/mL Interpretation <9.00 Negative 9.00 - 10.99 Equivocal >10.99 Positive EBV VCA IGM <36.00 <36.00 U/mL 03/12/2025 7:03 PM CDT [employer] DAIJA COX Comment: U/mL Interpretation <36.00 Negative 36.00 - 43.99 Equivocal >43.99 Positive RHONDA BAR NUCLEAR ANTIGEN IGG 69.90(H) <18.00 U/mL 03/12/2025 7:03 PM CDT [employer] DAIJA COX Comment: U/mL Interpretation <18.00 Negative 18.00 - 21.99 Equivocal >21.99 Positive EBV VCA IGG 262.00(H) <18.00 U/mL 03/12/2025 7:03 PM CDT [employer] DAIJA COX Comment: U/mL Interpretation <18.00 Negative 18.00 - 21.99 Equivocal >21.99 Positive Test Performed by [facility], [employer], [address] [place] [address] Noe Hernandez M.D., Ph.D., Director of Laboratories , [facility] [id number] 03/07/2025 11:4 1 PM CDT Wesly Steve MD LABORATORY Final Result [facility] [address], * [id number] ACT W/RFLX INHIBITOR (03/07/2025 11:41 PM CDT) [id number] ACTIVITY 0.79 0.68 - 1.63 IU/mL 03/10/2025 3:29 PM CDT [employer] DAIJA COX Comment: Activity levels below 0.10 IU/mL are seen in acquired and hereditary thrombotic thrombocytopenic purpura (TTP). Not all patients with TTP will exhibit low levels of BZYCJO63 activity with this assay, i.e., post bone marrow transplantation, drug-induced TTP, and mutations of VJQESR98 at the CUB domain. Recent plasma exchange or immunosuppressive therapy may raise the observed activity levels. Mild decreases in QADUBP15 activity are seen in a wide variety of conditions including metastatic cancer, neonates, serious infections and cirrhosis of the liver. For more information on this test, go to http://education.Auterra/faq/BDL614 Test Performed by [facility], [facility], [address] [place] [address] Noe Hernandez M.D., Ph.D., Director of Laboratories , [facility] [id number] 03/07/2025 11:4 1 PM CDT Wesly Steve MD LABORATORY Final Result Performing Organization Address [facility]/ZIP Co de Phone Number [employer] [place] [id number] [place], [place] , [place] [phone] * (ABNORMAL) PROCALCITONIN (PCT) (03/07/2025 11:41 PM CDT) PROCALCITONIN 2.85(H) 0.00 - 0.49 NG/ML 03/08/2025 1:14 PM CDT [facility] Comment: VALUES ABOVE 2.00 NG/ML ARE HIGHLY SUGGESTIVE OF SEPSIS OR OTHER SEVERE BACTERIAL INFECTION. 03/07/2025 11:4 1 PM CDT us Wesly Steve MD LABORATORY Final Result [facility] [address] [place] [address], [place] [phone] * (ABNORMAL) TSH W/REFLEX (03/07/2025 11:41 PM CDT) TSH 0.250(L) 0.358 - 3.740 uIU/ML 03/08/2025 12:47 AM CDT [facility] Comment: ASSAY PERFORMED BY CHEMILUMINESCENCE METHODOLOGY USING SIEM[employer]IST[employer] REAGENT. PATIENT RESULTS DETERMINED BY ASSAYS USING DIFFERENT MANUFACTURERS FOR METHODS MAY NOT BE COMPARABLE. 03/07/2025 11:4 1 PM CDT us Wesly Steve MD LABORATORY Final Result Performing Organization Address City/[facility]/ZIP Co de Phone Number [facility] [address] [place] [phone], [id number] * CMV DNA QUANT REAL TIME PCR (03/07/2025 11:41 PM CDT) Pathologist [facility] SPECIMEN SOURCE EDTA PLASMA 03/08/20 8:43 AM CDT [facility] CMV DNA QN PCR (BLD) Not Detected IU/mL 03/10/2025 6:53 PM CDT [facility] FileADRIAN LLY CMV DNA QUANT PCR (BLD) Not Detected log IU/mL 03/10/2025 6:53 PM CDT [facility]INTONFlorida Bank GroupADRIAN LLY Comment: REFERENCE RANGE: NOT DETECTED For additional information, please refer to http://education.CEYX.Organic To Go/faq/CMVandEBVPCR (This link is being provided for informational/ educational purposes only.) Test Performed by [facility], [facility], [address] [place] [address] Noe Hernandez M.D., Ph.D., Director of Laboratories , [facility] [id number] 03/07/2025 11:4 1 PM CDT us Wesly Steve MD LABORATORY Final Result Performing Organization Address City/[facility]/ZIP Co de Phone Number [employer] [address], [place] [phone] [facility] [address] [place] [address], [place] [phone] * (ABNORMAL) IRON SATURATION PANEL (FE,IBC,%SAT) (03/07/2025 11:41 PM CDT) Pathologist [facility] IRON 53 50 - 170 MCG/DL 03/08/2025 12:47 AM CDT [facility] IRON BINDING CAPACITY 202(L) 250 - 450 MCG/DL 03/08/2025 12:47 AM CDT [facility] IRON SATURATION 26 % 12:47 AM CDT [facility] Comment:REFERENCE RANGE NOT ESTABLISHED 03/07/2025 11:4 1 PM CDT us Wesly Steve MD LABORATORY Final Result [facility] [address] [place] [address], [id number] * VITAMIN B-12 (03/07/2025 11:41 PM CDT) Pathologist [facility] VITAMIN B12 S/P/B 511 193 - 986 PG/ML 03/08/2025 12:35 AM CDT [facility] 03/07/2025 11:4 1 PM CDT us Wesly Steve MD LABORATORY Final Result [facility] [address] [place] [address], [id number] * SED RATE, ERYTHROCYTE (ESR,WSR) (03/07/2025 11:41 PM CDT) Pathologist [facility] ESR 15 0 - 20 MM/HR 03/08/2025 12:03 AM CDT [facility] 03/07/2025 11:4 1 PM CDT Wesly Steve MD LABORATORY Final Result [facility] [address] [place] [address], [id number] * (ABNORMAL) COMPREHENSIVE METABOLIC PANEL (03/07/2025 11:41 PM CDT) SODIUM S/P/B 137 136 - 145 MMOL/L 03/08/2025 12:47 AM CDT [facility] POTASSIUM S/P/B 3.4(L) 3.5 - 5.1 MMOL/L 03/08/2025 12:47 AM CDT [facility] CHLORIDE S/P/B 107 97 - 115 MMOL/L 03/08/2025 12:47 AM CDT [facility] CO2 24.5 21.0 - 32.0 MMOL/L 03/08/2025 12:47 AM CDT [facility] GLUCOSE 261(H) 74 - 106 MG/DL 03/08/2025 12:47 AM CDT [facility] BUN 8 7 - 18 MG/DL 03/08/2025 12:47 AM CDT [facility] CREATININE S/P/B 0.80 0.55 - 1.02 MG/DL 03/08/2025 12:47 AM CDT [facility] CALCIUM S/P/B 8.0(L) 8.5 - 10.1 MG/DL 03/08/2025 12:47 AM CDT [facility] BILIRUBIN TOTAL S/P/B 0.4 0.2 - 1.0 MG/DL 03/08/2025 12:47 AM CDT [facility] ALKALINE PHOSPHATASE S/P/B 71 46 - 118 U/L 03/08/2025 12:47 AM CDT [facility] AST 43(H) 15 - 37 U/L 03/08/2025 12:47 AM CDT [facility] ALT 46 13 - 56 U/L 03/08/2025 12:47 AM T [facility] TOTAL PROTEIN S/P/B 6.5 6.4 - 8.2 G/DL 03/08/2025 12:47 AM CDT [facility] ALBUMIN S/P/B 2.9(L) 3.4 - 5.0 G/DL 03/08/2025 12:47 AM CDT [facility] ANION GAP 5.5 2.0 - 10.0 MMOL/L 03/08/2025 12:47 AM T [facility] OSMOLALITY (CALC) 291 MOSM/KG 025 12:47 AM T [facility] Comment:REFERENCE RANGE NOT ESTABLISHED GFR ESTIMATE 85(L) >90 ML/MIN/1. 73 M2 03/08/2025 12:47 AM T [facility] GFR NOTES GFR REFERENCE S: 03/08/2025 12:47 AM [facility] Comment: THE ESTIMATED GFR IS CALCULATED [...] ml/min/1.73 m2 G5,KIDNEY FAILURE: <15 ml/min/1.73 m2 03/07/2025 11:4 1 PM CDT us Wesly Steve MD LABORATORY Final Result [facility] [address] [place] [address], [place] [phone] * (ABNORMAL) LDH, LACTATE DEHYDROGENASE (03/07/2025 11:41 PM CDT) Pathologist [facility] LDH 249(H) 84 - 246 UNITS/L 03/08/2025 12:47 AM CDT [facility] 03/07/2025 11:4 1 PM CDT Wesly Steve MD LABORATORY Final Result [facility] [address] [place] [address], [id number] * (ABNORMAL) DIC PANEL (03/07/2025 11:41 PM CDT) Pathologist [facility] PROTIME 12.1 9.4 - 12.5 SEC 03/08/2025 12:11 AM CDT [facility] INR 1.1 0.8 - 1.1 03/08/2025 12:11 AM CDT [facility] PTT 27.3 25.1 - 36.5 SEC 03/08/2025 12:12 AM CDT [facility] FIBRINOGEN 330 200 - 393 MG/DL 03/08/2025 12:10 AM CDT [facility] D-DIMER 932(H) 0 - 500 ng{FEU}/m L 03/08/2025 12:11 AM CDT [facility] EXCLUSION STATEMENT 03/08/2025 12:11 AM CDT [facility] Comment: D-Dimer values less than or equal to 500 ng/mL FEU have a negative predictive value of >95% for exclusion of deep vein thrombosis and pulmonary embolism. In patients over 50 (who tend to have higher normal baseline D-Dimer values), recent studies suggest age-adjusted D-Dimer cutoff values (calculated as: age [years] x 10 ng/mL) result in equivalent outcomes and no additional false negative findings. PLT SEE CBC RESULT 150 - 350 x10'3/uL 03/07/2025 11:58 PM CDT [facility] 03/07/2025 11:4 1 PM CDT us Wesly Steve MD LABORATORY Final Result Performing Organization Address City/[facility]/ZIP Co de Phone Number [facility] [address] [place] [address], [place] [phone] * (ABNORMAL) C-REACTIVE PROTEIN (03/07/2025 11:41 PM CDT) C-REACTIVE PROTEIN 2.96(H) <0.80 mg/dL 03/08/2025 12:47 AM CDT [facility] 03/07/2025 11:4 1 PM CDT us Wesly Steve MD LABORATORY Final Result Performing Organization Address [facility] Co de Phone Number [facility] [address] [place] [address], [place] [phone] * BLOOD SMEAR PERIPHERAL INTERP PHYS W/WRIT REPORT (03/07/2025 11:41 PM CDT) CBC PATHOLOGIST COMMENT SENT TO PATHOLOGIST FOR REVIEW 03/08/2025 3:04 PM CDT [facility] 03/07/2025 11:4 1 PM CDT us Wesly Steve MD LABORATORY Final Result Performing Organization Address [facility]/ZIP Co de Phone Number [facility] [address] [place] [address], [place] [phone] * FOLIC ACID SERUM (03/07/2025 11:41 PM CDT) FOLATE 5.2 3.1 - 17.5 NG/ML 03/08/2025 12:35 AM CDT [facility] 03/07/2025 11:4 1 PM CDT Wesly Steve MD LABORATORY Final Result Performing Organization Address City/[facility] Co de Phone Number [facility] [address] [place] [address], [phone] * (ABNORMAL) THYROXINE, FREE (FT4) (03/07/2025 11:41 PM CDT) FREE T4 1.55(H) 0.76 - 1.46 NG/DL 03/08/2025 1:05 AM CDT [facility] 03/07/2025 11:4 1 PM CDT Wesly Steve MD LABORATORY Final Result Performing Organization Address [facility] de Phone Number [facility] [address] [place] [address], [place] [phone] * Pathology (03/07/2025 12:00 AM CDT) PATHOLOGY [facility] Department of Laboratory Medicine [address] [place] [address] , extension [phone] Pathology Report Peripheral Smear Report Name: IVETH BOOGIE Specimen #: [id number] Age: 6 1965 (Age: 60) Location: [facility] Sex: F Procedure Date: 03/07/2025 Hospital #: [id number] Date Received: 03/08/2025 Date Reported: 03/08/2025 Provider: WESLY STEVE MD Source: Peripheral blood Clinical History: The patient is a 60-year-old female with history of TP53 mutated myelodysplastic syndrome with recent Decitabine infusion. The peripheral blood smear review is requested by Dr. Steve. FINAL DIAGNOSIS: Peripheral blood, smear review: - Normochromic normocytic anemia, severe. - Leukopenia with absolute neutropenia and lymphopenia. - Thrombocytopenia, severe. Diagnosis Comment: Review of the peripheral blood smear shows pancytopenia. The findings are compatible with the patient's known myelodysplastic syndrome and recent Decitabine infusion. No definite circulating blasts are identified, but morphologic evaluation may be limited due to paucity of circulating white blood cells observed on the peripheral blood film. There is no 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 [id number] testing is pending at the time of this report. Electronically Signed Out HOSSEIN KHAN MD INTERPRETATION: Peripheral Blood Comments: RED BLOOD CELLS: The hemoglobin is decreased to 7.2 g/dL. The red blood cells are generally normochromic and normocytic with mild anisopoikilocytosis. No nucleated red blood cells or red blood cell inclusions are identified. No schistocytes or spherocytes are identified. No rouleaux formation or red blood cell agglutination is identified. WHITE BLOOD CELLS: The white blood cell number is markedly decreased to 0.15 K/cumm. The white blood cells are distributed in accordance with the reported cell differential. The absolute total neutrophil count is markedly decreased 0.07 K/cumm, and insufficient circulating forms are present for morphologic evaluation. No circulating blasts are identified. The absolute emphasized count is severely decreased to 0.07 K/cumm, but circulating forms are morphologically unremarkable. Rare circulating monocytes are present. PLATELETS: Platelets are severely decreased to 5 K/cumm. Insufficient circulating platelets are present on the peripheral blood film for morphologic evaluation. Interpretation and sign out were performed at [address], [address] [place] [address]. [facility] 03/07/2025 03/08/2025 7:5 2 AM CDT Comment:Peripheral blood us Wesly Steve MD PATHOLOGY/CYTOLOGY ORDERABLES F inal Result [facility] [address] [place] [address], [id number] * PROTIME/INR, VENOUS (01/26/2025 3:25 PM CDT) PROTIME 11.9 9.4 - 12.5 SEC 01/26/2025 3:40 PM CDT [facility] INR 1.0 0.8 - 1.0 01/26/2025 3:40 PM CDT [facility] 01/26/2025 3:25 PM CDT Bharat Young DO LABORATORY Final Result [facility] [address] [place] [address], [place] [phone] from Last 3 Months Insurance MEDICAID MEDICARE Advance Directives * Full Code (Latest Code Status on File) Date Activated Date Inactivated Comments 03/07/2025 10:49 PM 03/12/2025 8:04 PM Care Teams [employer]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
--- OUTSIDE RECORDS SUMMARY | 2025-03-20 14:09 | XMS_ITS | Encounter Summary ---
Author Organization [facility] Address [address] [place] [address] Care Team Providers Care Advertising Rep Name Role Phone Reagan Fonseca MD Primary Care Provider [phone] Encounter Details Date Type Department Care Team (Late st Contact Info) Description 02/24/2019 Abstract [facility]FL CONVERSION [address] [place] [address] , Generic Conversion, Social History Tobacco Use [...] on filedocumented in this encounter Care Teams Advertising Rep Relationship Specialty Start Date End Date Reagan Fonseca MD [address] [place] [address] PCP - General FAMILY PRACTICE 01/26/25 documented as of this encounter
--- OUTSIDE RECORDS SUMMARY | 2025-03-20 14:09 | XMS_ITS ---
Author Organization Unknown Address [address] [place] [address] [phone] Phone Care Team Providers Care Fuselage Framer Name Role Phone JOHAN SULLIVAN Attending Unavailable Immunization Immunization Date Status Additional Notes Code Code System Tdap 03/26/2021 Completed 115 CVX Results CBC W/ DIFF - Collect Date/T sarah: 01/08/2025 13:23 [facility] ID: [id number] [address] [place] [address], [phone] LOINC: 13254-3 Test Value Unit Reference Range Code Code [...] H=36.0 L PLATELETS 43 10^3uL L=100 H=400 20824-7 LOINC L RDW 16.1 % L=11.7 H=15.5 H %GRAN L=40.0 H=70.0 11572-4 LOINC %LYMPH L=20.0 H=45.0 736-9 LOINC %MONO L=2.0 H=10.0 53816-2 LOINC %EOS L=0.0 H=6.0 713-8 LOINC %BASO L=0.0 H=3.0 706-2 LOINC #NEUT L=1.9 H=7.6 95632-3 LOINC #LYMPH L=0.9 H=4.9 35557-8 LOINC #MONO L=0.1 H=0.9 58693-6 LOINC #EOS L=0.0 H=0.6 712-0 LOINC #BASO L=0.00 H=0.10 27480-8 LOINC #IM GRANS L=0.0 H=7.0 87200-8 LOINC %IM GRANS L=0.0 H=5.0 27936-8 LOINC %NRB L=0.0 H=0.2 66797-1 LOINC #NRB L=0.000 H=0.012 02745-4 LOINC MANUAL DIFF SEE BELOW A SEG [...] L=0 H=0 BLASTS 0 % L=0 H=0 96294-9 LOINC PANDA LYMPHS 0.00 % L=0.00 H=5.00 SMUDGE CELLS 0 % L=0 H=0 NRBC 0.0 % L=0.0 H=0.0 PLTS DECREASED NEUT # 0.7 10^3uL L=1.9 H=7.6 LL LYMPH # 1.2 10^3uL L=0.9 H=4.9 MONO # 0.0 10^3uL L=0.1 H=0.9 L EOS # 0.1 10^3uL L=0.0 H=0.6 712-0 LOINC BASO # 0.0 10^3uL L=0.0 H=0.1 40942-6 LOINC RBC MORPH NOT INDICATED COMPREHENSIVE METABOLIC PANE L - Collect Date/Time: 01/08/2025 13:23 [facility] ID: [id number] [address] [place], [place], [phone] LOINC: 63970-3 Test Value Unit Reference Range Code Code [...] 2028-9 LOINC ANION GAP 10 L=10 H=20 93071-6 LOINC OSMOLALITY 288 mOs/kG L=280 H=296 83420-7 LOINC BUN/CREAT 13.3 3097-3 LOINC CALCIUM 8.9 mg/dL L=8.3 H=10.5 41480-9 LOINC AST 23 U/L L=15 H=46 1920-8 LOINC ALT 15 U/L L=9 H=72 1742-6 LOINC ALKALINE PHOS 61 U/L L=38 H=126 6768-6 LOINC TOTAL BILI 0.3 mg/dL L=0.2 H=1.3 1975-2 LOINC ALBUMIN 3.9 G/dL L=3.5 H=5.0 1751-7 LOINC TOTAL PROTEIN 7.6 g/L L=6.3 H=8.2 2885-2 LOINC A/G RATIO 1.1 19227-9 LOINC AGE 59 88504-6 LOINC eGFR NON-AFR 69 ml/min eGFR AFR AMER 83 ml/min Social History Type Status Start Date End Date Code Code Syst em Smoking History Unknown if ever smoked [address] Sex Female Hospital Discharge Instructions [...]
--- OUTSIDE RECORDS SUMMARY | 2025-03-20 14:10 | XMS_ITS ---
Author Organization Unknown Address [address] [place] [address] [phone] Phone Care Team Providers Care Ceramic Designer Name Role Phone PIPPA GREGORIONISHA Attending Unavailable JOHAN SULLIVAN Primary Unavailable Immunization Immunization Date Status Additional Notes Code Code System Tdap 03/26/2021 Completed 115 CVX Social History Type Status Start Date End Date Code Code Syst em Smoking History Unknown if ever smoked [address] Sex Female Vital Signs Vital Sign Value Unit [place] Value [place] Unit Date/Time Recent/Initial? Code Code System Body Mass Index 34.97 kg/m2 02/04/2025 09:56 Initial 14099 -5 [facility] Systolic Blood Pressure 168 mm[Hg] 02/04/2025 09:53 Initial 8480- 6 LOINC Diastolic Blood Pressure 73 mm[Hg] 02/04/2025 09:53 Initial 8462- 4 INC Body Surface Area 2.24 m2 02/04/2025 09:56 Initial 3140- 1 LOINC Height 172.720 0 cm 68.00 in 02/04/2025 09:56 Initial 8302- 2 LOINC O2 Saturation 100 % 2024 09:53 Initial 23145 -5 LOINC Pulse 99.0 /min 02/04/2025 09:53 Initial 8867- 4 LOINC Respiration 22 /min 02/05/20 09:53 Initial 9279- 1 LOINC Temperature 36.3 Freda 97.3 F 02/05/20 09:53 Initial 8310- 5 LOINC Weight 104.33 kg 230.00 lbs 02/04/2025 09:56 Initial 30406 -7 INC Hospital Discharge Instructions Should you [...]
--- OUTSIDE RECORDS SUMMARY | 2025-03-20 14:10 | XMS_ITS ---
Author Organization Unknown Address [address] [place] [phone] Phone Care Team Providers Care Boil Off Machine Operator Cloth Name Role Phone JOHAN SULLIVAN Attending Unavailable Immunization Immunization Date Status Additional Notes Code Code System Tdap 03/26/2021 Completed 115 CVX Results US GALLBLADDER - Completed: 12/25/2024 12:00 LOINC: \TM00\\12PI\\DRAo\\BM09\ \MRHo\ [address] [address] ---------NAME--------- NUMBER SEX AGE ADMIT DISC. XRAY# F/C TYPE CHUYITA TONY [id number] F 59 12/25/24 12/25/24 [id number] MBJ O/P DATE OF : 1965 M/R# [id number] PH#: [phone] RM \MRHx\ LOCATION: TRANSCRIBED: 12/25/24 13:39 US GALLBLADDER [id number] COMPLETED:12/25/24 12:00 APC [id number] {REASON-US ABD: ABDOMINAL PAIN PHYSICIAN: JOHAN R [...] of gallstones or acute cholecystitis. Hepatic steatosis. 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 XRAY# F/C TYPE CHUYITA TONY [id number] F 59 12/25/24 12/25/24 [id number] MBJ O/P DATE OF : 1965 M/R# [id number] #: [id number] LOCATION: TRANSCRIBED: 12/25/24 13:39 US GALLBLADDER [id number] COMPLETED:12/25/24 12:00 APC [id number] {REASON-US ABD: ABDOMINAL PAIN PHYSICIAN: JOHAN RADIOLOGY [...] of gallstones or acute cholecystitis. Hepatic steatosis. 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
[2025-03-20 14:19] LABS: Hematocrit 24.4 % (35.0-49.0); Hemoglobin 7.8 g/dL (12.0-15.0); Immature Platelet Fraction Pct 2.1 % (1.0-7.0); Mean Corpuscular HGB Conc 32.0 g/dL (32-36); Mean Corpuscular Hemoglobin 28.9 pg (27.0-31.0); Mean Corpuscular Volume 90.4 fL (78.0-102.0); Platelet Count Result 100 K/mm3 (150-420); Red Blood Count 2.70 M/mm3 (4.20-5.40)
[2025-03-20 14:32] LABS: White Blood Count 0.5 K/mm3 (4.8-10.8)
[2025-03-20 14:46] LABS: Band Neutrophils Percent 0 % (0-6); Neutrophils Percent Manual 5 % (46-73); Total Cells Counted 100
[2025-03-20 14:47] LABS: Basophils Absolute Manual 0.01 K/mm3 (0-0.1); Basophils Percent Manual 2 % (0-1); Eosinophils Absolute Manual 0.03 K/mm3 (0.02-0.50); Eosinophils Percent Manual 7 % (1-6); Hypochromasia 3+; Lymphocytes Absolute Manual 0.41 K/mm3 (1.1-4.5); Lymphocytes Percent Manual 82 % (18-44); Monocytes Absolute Manual 0.02 K/mm3 (0.1-0.90); Monocytes Percent Manual 4 % (3-9); Neutrophils Absolute Manual 0.02 K/mm3 (1.3-6.7); Poikilocytosis 1+; Schistocytes None Seen
[2025-03-20 14:48] LABS: Anisocytosis 2+
[2025-03-20 15:15] LABS: Alanine Aminotransferase 13 U/L (6-35); Albumin Level 3.5 g/dL (3.5-5.1); Alkaline Phosphatase 58 U/L (38-126); Anion Gap 5 mmol/L (4-12); Aspartate Amino Transferase 19 U/L (14-36); Bilirubin,Total 0.8 mg/dL (0.2-1.3); Blood Urea Nitrogen 5 mg/dL (7-17); Calcium 8.4 mg/dL (8.4-10.2); Carbon Dioxide 26 mmol/L (22-30); Chloride 106 mmol/L (98-107); Estimated Glomerular Filt Rate > 60; Glucose 136 mg/dL (65-110); Osmolality Calculated 283 mOsm/kg (285-295); Potassium 4.0 mmol/L (3.4-5.0); Sodium 137 mmol/L (137-145); Total Protein 6.6 g/dL (6.3-8.2)
== END 2025-03-20 14:06 | disposition home or self-care (01) ==
LOC: CHSLAB 14:06
PROVIDERS: PCP Family Medicine; Visit Provider Internal Medicine Hematology
DX: D64.9 Anemia, unspecified (principal)
CPT/HCPCS: 36415; 80053; 85025; 85055; 86850; 86900; 86901

== ENCOUNTER 2025-03-20 16:17 | Emergency (ER) | payer MEDICARE, SELFPAY ==
[2025-03-20 16:17] VITALS: BP 144/61; PULSE 98; RESP 18; TEMP 36.9; O2SAT 98
--- NOTE | 2025-03-20 16:23 | ED_ITS ---
HPI - General Adult General Chief complaint: Unspecified Stated complaint: PICC live removal Time Seen by Provider: 03/20/25 16:23 Source: patient Mode of arrival: ambulatory Limitations: no limitations History of Present Illness HPI narrative: 60-year-old female with a history of COPD, diabetes myelodysplastic /aplastic anemia was noted to have -- bleeding around right arm PICC site. The patient was seen by oncologist / irrigation tax assessor collector and sent to the ED for PICC line removal. The patient is due to get another PICC line on the other arm. Patient does not have any fever or chills. The patient was sent from the infusion center where she started bleeding from the PICC line site after the infusion. Onset (ago): day(s) ( One day) Location: upper extremity Radiation: non-radiation Relieving factors: none Exacerbating factors: none Associated symptoms: denies other symptoms Related Data Home Medications ?Medication ?Instructions ?Recorded ?Confirmed ?Last Taken ?Type albuterol sulfate 90 mcg/actuation 90 mcg inhalation Q6H PRN SOB 05/24/24 03/07/25 Unknown History aerosol inhaler omeprazole 40 mg capsule,delayed 40 mg PO DAILY 05/24/24 03/07/25 Unknown History release alprazolam 0.25 mg tablet 0.25 mg PO DAILY PRN anxiety 02/04/25 03/07/25 Unknown History escitalopram oxalate 10 mg tablet 10 mg PO DAILY 02/04/25 03/07/25 Unknown History levofloxacin 500 mg tablet 500 mg PO Q24H 02/04/25 03/07/25 Unknown History lorazepam 0.5 mg tablet 0.5 mg PO BID PRN anxiety 02/04/25 03/07/25 Unknown History oxycodone 5 mg tablet 5 mg PO Q6H PRN pain 02/04/25 03/07/25 Unknown History trazodone 100 mg tablet 100 mg PO HS 02/04/25 03/07/25 Unknown History Allergies Allergy/AdvReac Type Severity Reaction Status Date / Time Penicillins Allergy Hives Verified 02/19/25 15:56 codeine AdvReac Nausea Verified 02/19/25 15:56 Review of Systems Review of Systems: All systems reviewed & are unremarkable except as noted in HPI and below PMFSH Past Medical History Medical History MDS (myelodysplastic syndrome) Abdominal pain Bronchitis COPD (chronic obstructive pulmonary disease) Type 2 diabetes mellitus Social History Social History Smoking packs per day: 1.5 Smoking cigarettes per day: 30.0 Years smoked: 35 Smoking pack-years: 52.50 Smoking status: Current every day smoker Tobacco type: cigarettes Second hand tobacco smoke exposure: Yes Alcohol intake: never Substance use: never Substance use type: does not use Do You Feel Safe in your Home?: Yes Lack of Transportation: No Lack of Food: Never True Current Housing: I Have Housing Concerned About Future Housing: No Difficulty Paying Gas/Electric Bills: No Difficulty Paying for Meds: No Currently Unemployed: No Education: Grade School Difficulty w/ Childcare or Family Care: No Living arrangements: with family Spiritual care concerns: No Exam Narrative: afebrile. Vitals are stable Const: General: no acute distress Nutritional Appearance: well nourished Orientation/consciousness: patient oriented x3 Limitations: no limitations HENMT: Head: normal to inspection Ears: external ears normal Face/Nose/Sinus: Normal external nose present Face and sinus: normal facial exam Mouth: Yes Normal oral and palatal mucosa present Throat: posterior oropharynx normal Eyes: Conjunctivae: conjunctivae normal Pupils: Equal, round and reactive pupils present EOM: EOMs intact bilaterally Direct Ophthalmoscopy: no photophobia Neck: Neck: normal visual inspection, no lymphadenopathy and no meningeal signs Chest: Chest palpation & inspection: normal inspection of the chest Resp: Effort & Inspection: normal respiratory effort Auscultation: diminished lung sounds Cardio: Rate: regular rate Rhythm: regular rhythm GI: GI Palp: Yes Soft to palpation Auscultation: normal bowel sounds Other: no tenderness/ rigidity /rebound. : General: Yes no CVA tenderness Back/Spine/Pelvis: Back: no CVA tenderness Skin: Other: Multiple bruises / Ecchymotic lesions Neuro: General: patient oriented x3, moves all extremities, no meningeal signs, no focal motor deficits and CN's II-XI intact bilaterally Cranial nerves: Yes Nystagmus not present Speech: normal speech Gait exam (Neuro): Normal gait present Extrem: General: normal to inspection and no clubbing, cyanosis or edema Psych: Mental Status: mental status grossly normal Affect: normal affect Attitude: cooperative Course Course Emergency Course: PICC line removal. Patient has a platelet count of 178092. She has a white count of 0.5, H&H of 7.8/24.4. Two weeks ago she had a normal PT PTT. PICC line removed without any complications. Vital Signs Vital signs: Vital Signs Temperature 36.9 C 03/20/25 16:17 Pulse Rate 98 03/20/25 16:17 Respiratory Rate 18 03/20/25 16:17 Blood Pressure 144/61 H 03/20/25 16:17 Pulse Oximetry 98 03/20/25 16:17 Oxygen Delivery Room Air 03/20/25 16:17 Temperature 36.9 C 03/20/25 16:17 Pulse Rate 98 03/20/25 16:17 Respiratory Rate 18 03/20/25 16:17 Blood Pressure 144/61 H 03/20/25 16:17 Pulse Oximetry 98 03/20/25 16:17 Oxygen Delivery Room Air 03/20/25 16:17 Medical Decision Making MDM Narrative Medical decision making narrative: Bleeding around PICC line site. Removal of PICC line Differential Diagnosis Differential Diagnosis: coagulopathy Medical Records Medical records reviewed: Yes I reviewed the external patient's medical records. Vital Signs Vital Signs: Vital Signs Temperature 36.9 C 03/20/25 16:17 Pulse Rate 98 03/20/25 16:17 Respiratory Rate 18 03/20/25 16:17 Blood Pressure 144/61 H 03/20/25 16:17 Pulse Oximetry 98 03/20/25 16:17 Oxygen Delivery Room Air 03/20/25 16:17 Temperature 36.9 C 03/20/25 16:17 Pulse Rate 98 03/20/25 16:17 Respiratory Rate 18 03/20/25 16:17 Blood Pressure 144/61 H 03/20/25 16:17 Pulse Oximetry 98 03/20/25 16:17 Oxygen Delivery Room Air 03/20/25 16:17 Discharge Plan Discharge Clinical Impression: Bleeding from PICC line Qualifiers: Encounter type: initial encounter Qualified Code(s): T82.838A - Hemorrhage due to vascular prosthetic devices, implants and grafts, initial encounter Patient Disposition: Home Condition: Stable Instructions: Antibiotic Form, Removal of a Central Line, PICC, or Midline Catheter (ED) Patient Language: Stateless Prescriptions: No Action alprazolam 0.25 mg tablet 0.25 mg PO DAILY PRN (Reason: anxiety) escitalopram oxalate 10 mg tablet 10 mg PO DAILY levofloxacin 500 mg tablet 500 mg PO Q24H lorazepam 0.5 mg tablet 0.5 mg PO BID PRN (Reason: anxiety) oxycodone 5 mg tablet 5 mg PO Q6H PRN (Reason: pain) trazodone 100 mg tablet 100 mg PO HS omeprazole 40 mg capsule,delayed release(DR/EC) 40 mg PO DAILY albuterol sulfate 90 mcg/actuation HFA aerosol inhaler 90 mcg INHALATION Q6H PRN (Reason: SOB) fexofenadine [Allergy Relief (fexofenadine)] 60 mg tablet 60 mg PO Q12H Qty: 60 2RF (DME) nebulizers [MC 300 Nebulizer w-Mouthpiece] Misc See Rx Instructions .Route Qty: 1 0RF Rx Instructions: As directed (DME) nebulizer accessories Kit See Rx Instructions .Route Qty: 1 0RF Rx Instructions: As directed Follow-up/Referrals: Reagan Fonseca MD [Primary Care Provider] - Time of Disposition: 16:43
--- OUTSIDE RECORDS SUMMARY | 2025-03-20 16:23 | XMS_ITS | Clinical Summary ---
Author Organization [facility] Address [facility] [place] [address] Care Team Providers Care Brine Purifier Name Role Phone Reagan Fonseca MD Primary Care Provider [phone] Allergies Active Allergy Reactions Criticality Noted Date [...] - 03/12/2025 5:58 PM CDT Hospital Encounter [facility] [address] [place] [address] Hansel Strickland MD Sheikh, MD Kory Alonso, MD Marcelle Discharge Disposition: Home or Self Care (Routine Discharge) 03/07/2025 Travel 01/26/2025 2:50 PM CDT - 01/26/2025 8:40 PM CDT Emergency [facility] [place] [address] Bharat Young, Medical Problem Discharge Disposition: Home [...] from your doctor or pharmacy? Rarely 03/08/2025 [facility] Utilities Answer Date Recorded In the past 12 months has e [employer], [employer], or water [employer] threatened to shut off services in your [...] week 03/08/2025 How often do you attend jew or cheondoism serv ices? Never 03/08/2025 Do you belong to any clubs o r organizations such as jew groups, unions, fraternal or athletic groups, or [...] medical care, and heating? Patient declined 03/08/2025 [facility] - Occupational Stress Questionnaire Answer [...] any time in the past 12 [facility], were you homeless or living in a halfway (including now)? No 03/08/2025 Comments No Sex [...] SERUM Routine 03/07/2025 11:4 1 PM CDT [id number] ACT W/RFLX INHIBITOR Routine 03/07/2025 11:41 PM [...] 70 - 109 03/12/2025 4:08 PM CDT [facility] 03/12/2025 4:04 PM CDT Marcelle Rich MD POCT ORDERABLES - DEVICE Final R esult [facility] [address] [place] [address], [id number] * TRANSFUSE PLATELET PHERESIS (03/12/2025 1:41 PM CDT) Only the most recent of4 resultswithin the time period is included. Phani Sarmiento MD NURSING TREATMENT ORDERAB LES - BLOOD ADMIN Final Result * TYPE & SCREEN (03/12/2025 11:15 AM CDT) Only the most recent of3 resultswithin the time period is included. UNITS ORDERED 1 03/12/2025 11:01 AM CDT [facility] ABO/RH A POSITIVE 03/12/2025 1:38 PM CDT [facility] ANTIBODY SCREEN NEGATIVE 1:38 PM CDT [facility] SAMPLE EXPIRATION 03/15/2025,2359 03/12/2025 12:56 PM CDT [facility] BLOOD UNIT NUMBER [id number] 03/12/2025 1:38 PM CDT [facility] PRODUCT: PC LEUKOPOOR 03/12/2025 1:38 PM CDT [facility] UNIT DIVISION 00 03/12/2025 1:38 PM CDT [facility] BLOOD UNIT STATUS TRANSFUSED,FINAL 03/13/2025 6:44 AM CDT [facility] ISSUE DATE/TIME [id number] 025 6:44 AM CDT [facility] PRODUCT CODE [id number] 03/13/2025 6:44 AM CDT [facility] ABO/RH Unit A POS 03/13/2025 6:44 AM CDT [facility] ABO/RH UNIT ISBT CODE 6200 03/13/2025 6:44 AM CDT [facility] BLOOD UNIT EXPIRATION DATE [id number] 03/13/2025 6:44 AM CDT [facility] TRANSFUSION STATUS OK TO TRANSFUSE 03/12/2025 1:38 PM CDT [facility] CROSSMATCH COMPATIBLE-EXM 03/12/2025 1:38 PM CDT [facility] 03/12/2025 11:1 5 AM CDT Marcelle Rich MD BLOOD BANK TEST ORDERABLES Final Result [facility] [address] [place] [address], [id number] * ORDER PLATELET PHERESIS, 1 Units (03/12/2025 6:46 AM CDT) Only the most recent of3 resultswithin the time period is included. UNITS ORDERED 1 03/12/2025 6:46 AM CDT [facility] BLOOD UNIT NUMBER [id number] 03/12/2025 9:57 AM CDT [facility] PRODUCT: PLT PHERESIS LEUKORED 7D BAG 2 03/12/2025 9:57 AM CDT [facility] UNIT DIVISION 00 03/12/2025 9:57 AM CDT [facility] BLOOD UNIT STATUS TRANSFUSED,FINAL 03/13/2025 6:44 AM CDT [facility] ISSUE DATE/TIME [id number] 025 6:44 AM CDT [facility] PRODUCT CODE [id number] 03/13/2025 6:44 AM CDT [facility] ABO/RH Unit AB POS 03/13/2025 6:44 AM CDT [facility] ABO/RH UNIT ISBT CODE 8400 03/13/2025 6:44 AM CDT [facility] BLOOD UNIT EXPIRATION DATE [id number] 03/13/2025 6:44 AM CDT [facility] TRANSFUSION STATUS OK TO TRANSFUSE 03/12/2025 9:57 AM CDT [facility] 03/12/2025 6:46 AM CDT Phani Sarmiento MD BLOOD BANK PRODUCT ORDERA BLES Final Result [facility] [address] [place] [address], [id number] * (ABNORMAL) CBC W/DIFF AUTOMATED (03/12/2025 3:50 AM CDT) Only the most recent of7 resultswithin the time period is included. WBC 0.54(L) 4.00 - 10.80 x10'3/uL 03/12/2025 4:53 AM CDT [facility] RBC 2.40(L) 4.10 - 5.40 x10'6/uL 03/12/2025 4:53 AM CDT [facility] HGB 7.1(L) 12.0 - 16.0 G/DL 03/12/2025 4:53 AM CDT [facility] HCT 21.7(L) 36.0 - 47.0 % 03/12/2025 4:53 AM CDT [facility] MCV 90.4 78.0 - 100.0 FL 03/12/2025 4:53 AM CDT [facility] MCH 29.6 27.0 - 31.0 PG 03/12/2025 4:53 AM CDT [facility] MCHC 32.7(L) 33.0 - 36.0 G/DL 03/12/2025 4:53 AM CDT [facility] RDW 17.0(H) 11.5 - 14.5 % 03/12/2025 4:53 AM CDT [facility] PLT 9(LL) 150 - 350 x10'3/uL 03/12/2025 6:54 AM CDT [facility] Comment: This result has been called to [id number] by [id number] on 03/12/2025 05:55:00, and has been read back. DIFFERENTIAL TYPE MANUAL DIFFERENTIAL 03/12/2025 6:57 AM CDT [facility] NRBC % 2.0 % 03/12/2025 6:57 AM CDT [facility] SEG NEUTROPHILS 29 % 6:57 AM CDT [facility] LYMPHOCYTES 63 % 03/12/2025 6:57 AM CDT [facility] MONOCYTES 2 % 03/12/2025 6:57 AM CDT [facility] EOSINOPHILS 2 % 03/12/2025 6:57 AM CDT [facility] BASOPHILS 0 % 03/12/2025 6:57 AM CDT [facility] BANDS 2 % 03/12/2025 6:57 AM CDT [facility] ABS. NEUTROPHILS 0.17(LL) 1.60 - 8.30 x10'3/uL 03/12/2025 6:57 AM CDT [facility] Comment: This patient has had a critical value result for this test called within the past 3 months. ABS. LYMPHOCYTES 0.35(L) 0.80 - 4.70 x10'3/uL 03/12/2025 6:57 AM CDT [facility] ABS. MONOCYTES 0.01 0.00 - 1.50 x10'3/uL 03/12/2025 6:57 AM CDT [facility] ABS. EOSINOPHILS 0.01 0.00 - 0.40 x10'3/uL 03/12/2025 6:57 AM CDT [facility] ABS. BASOPHILS 0.00 0.00 - 0.20 x10'3/uL 03/12/2025 6:57 AM CDT [facility] ABS. NUCLEATED RBC'S 0.01 0.00 - 0.01 x10'3/uL 03/12/2025 6:57 AM CDT [facility] RBC MORPHOLOGY SLIDE REVIEWED 2024 6:57 AM CDT [facility] ANISO SLIGHT 03/12/2025 6:57 AM CDT [facility] POIKLO SLIGHT 03/12/2025 6:57 AM CDT [facility] OVALOCYTES PRESENT 03/12/2025 6:57 AM CDT [facility] TEAR DROP PRESENT 03/12/2025 6:57 AM CDT [facility] JOVANNA PRESENT 03/12/2025 6:57 AM CDT [facility] PLT EST. DECREASED 03/12/2025 6:57 AM CDT [facility] 03/12/2025 3:50 AM CDT us Marcelle Rich MD LABORATORY Final Result [facility] [address] [place] [address], [id number] * (ABNORMAL) BASIC METABOLIC PANEL (03/11/2025 9:42 AM CDT) Only the most recent of5 resultswithin the time period is included. SODIUM S/P/B 139 136 - 145 MMOL/L 03/11/2025 10:19 AM CDT [facility] POTASSIUM S/P/B 3.4(L) 3.5 - 5.1 MMOL/L 03/11/2025 10:19 AM CDT [facility] CHLORIDE S/P/B 106 97 - 115 MMOL/L 03/11/2025 10:19 AM T [facility] CO2 27.1 21.0 - 32.0 MMOL/L 03/11/2025 10:19 AM T [facility] GLUCOSE 243(H) 74 - 106 MG/DL 03/11/2025 10:19 AM T [facility] BUN 15 7 - 18 MG/DL 03/11/2025 10:19 AM T [facility] CREATININE S/P/B 0.90 0.55 - 1.02 MG/DL 03/11/2025 10:19 AM T [facility] CALCIUM S/P/B 8.6 8.5 - 10.1 MG/DL 03/11/2025 10:19 AM [facility] ANION GAP 5.9 2.0 - 10.0 MMOL/L 03/11/2025 10:19 AM T [facility] OSMOLALITY (CALC) 297 MOSM/KG 025 10:19 AM [facility] Comment:REFERENCE RANGE NOT ESTABLISHED GFR ESTIMATE 74(L) >90 ML/MIN/1. 73 M2 03/11/2025 10:19 AM T [facility] GFR NOTES GFR REFERENCE S: 03/11/2025 10:19 AM T [facility] Comment: THE ESTIMATED GFR IS CALCULATED [...] MD LABORATORY Final Result Performing Organization Address [facility] de Phone Number [facility] [address] [place] [address], [id number] * PHOSPHORUS, INORGANIC PHOSPHATE (03/10/2025 2:41 AM CDT) PHOSPHORUS 3.5 2.5 - 4.9 MG/DL 03/10/2025 3:34 AM CDT [facility] 03/10/2025 2:41 AM CDT us Marcelle Rich MD LABORATORY Final Result Performing Organization Address [facility] de Phone Number [facility] [address] [place] [address], [place] [phone] [id number] * MAGNESIUM (03/10/2025 2:41 AM CDT) MAGNESIUM 1.9 1.6 - 2.6 MG/DL 03/10/2025 3:34 AM CDT [facility] 03/10/2025 2:41 AM CDT us Marcelle Rich MD LABORATORY Final Result Performing Organization Address [facility] de Phone Number [facility] [address] [place] [address], [id number] * (ABNORMAL) Blood gas, venous (03/09/2025 5:27 PM CDT) PH VENOUS 7.39 7.32 - 7.42 03/09/2025 5:37 PM CDT [facility] PCO2 VENOUS 47.7 41.0 - 51.0 MMHG 03/09/2025 5:37 PM CDT [facility] PO2 VENOUS 31.9 25.0 - 40.0 MM HG 03/09/2025 5:37 PM CDT [facility] BICARB VENOUS 28.0 24 - 28 MMOL/L 03/09/2025 5:37 PM CDT [facility] TOTAL CO2 VENOUS 29.5(H) 25.0 - 29.0 MMOL/L 03/09/2025 5:37 PM CDT [facility] BASE EXCESS VENOUS 3.1(H) 0 - 2 MMOL/L 03/09/2025 5:37 PM CDT [facility] O2 SAT VENOUS 56 <75 % 03/09/2025 5:37 PM CDT [facility] 03/09/2025 5:27 PM CDT Marcelle Rich MD LABORATORY Final Result [facility] [address] [place] [address], [phone] * XR CHEST PORTABLE (03/08/2025 11:08 AM CDT) Anatomical Region Laterality Modality Chest Radiographic Aishwarya ging 03/08/2025 12:2 3 PM CDT Impressions 03/08/2025 12:24 PM CDT IMPRESSION: 1. Mild pulmonary vascular congestion. 2. No focal consolidation or pneumothorax. Ordered By: MARCELLE RICH Interpreted By: Bk Perez MD, 03/08/2025 12:23 PM Narrative 03/08/2025 12:24 PM CDT [facility] [address] [place], [place] [address] PROCEDURE: XR CHEST PORTABLE. 03/08/2025 11:06 AM. [...] Procedure Note Bk Perez MD - 03/08/2025 [facility] [address] [place], [place] [address] PROCEDURE: XR CHEST PORTABLE. 03/08/2025 11:06 AM. [...] CDT) TEST NAME: LEUKEMIA LYMPHOMA EVAL TEST [id number] 03/08/2025 1:46 PM CDT [facility] SPECIMEN TYPE PERIPHERAL BLOOD EDTA, ROOM TEMP 03/08/2025 1:46 PM CDT [facility] TEST RESULT: Flexitest 1 03/12/2025 11:42 AM CDT [facility] REGGIE VÁSQUEZ Comment: Flexitest 1 CLINICAL INFORMATION: [...] staining intensity, forward scatter and side scatter. Tucker A - Granulocytes Marker Percentage CD2 1 CD3 0 CD4 0 CD5 0 CD7 1 CD8 0 CD10 87 CD11c 96 CD13 91 CD19 0 CD19+CD5+ 0 CD20 0 CD23 1 CD33 3 CD34 0 CD38 2 CD45 100 CD56+CD3- 2 CD64 0 CD117 0 HLA_DR 2 [place] CD19+ 0 Lambda CD19+ 0 K/L Ratio NA Tucker B - Lymphocytes Marker Percentage CD2 66 CD3 62 CD4 42 CD5 60 CD7 53 CD8 19 CD10 2 CD11c 6 CD13 0 CD19 22 CD19+CD5+ 0 CD20 22 CD23 14 CD33 0 CD34 0 CD38 46 CD45 100 CD56+CD3- 13 CD64 0 CD117 0 HLA_DR 25 [place] CD19+ 10 Lambda CD19+ 9 K/L Ratio 1.11 This test was developed and its analytical performance characteristics have been determined [facility], [place], [place]. It has not been cleared or approved by the U.S. Food and Drug Administration. This assay has been validated pursuant to the CLIA regulations and is used for clinical purposes. NUMBER OF MARKERS: 22 Test Performed by [facility], [facility], [address] [place], [place] Noe Hernandez M.D., Ph.D., Director of Laboratories , [facility] [id number] 03/08/2025 11:0 7 AM CDT us Almaz Hollins MD LABORATORY Final Result Performing Organization Address City/[facility] Co de Phone Number [facility] [address] , [place] [phone] [facility] [address] [place] [address], [place] [phone] * FLOW CYTOMETRY, PERIPHERAL BLD (03/08/2025 11:07 AM CDT) FLOW CYTOMETRY TEST SENT TO [facility]. RESULTS WILL DISPLAY REF LAB TEST RESULT UNDER MISC TAB WHEN FINALIZED. 03/08/2025 12:12 PM CDT [facility] 03/08/2025 11:0 7 AM CDT us Almaz Hollins MD LABORATORY Final Result Performing Organization Address [facility] Co de Phone Number [facility] [address] [place] [address], [place] [phone] * MISCELLANEOUS LAB TEST (03/08/2025 11:07 AM CDT) TEST NAME: HLA TYPING FOR PLATELETS, ALLOIMMUNIZATION 03/08/2025 8:04 AM CDT [facility] TEST RESULT: SEE BLOOD BANK FOR TESTING RESULTS 03/11/2025 7:37 AM CDT [facility] 03/08/2025 11:0 7 AM CDT us Almaz Hollins MD LABORATORY Final Result Performing Organization Address [facility] de Phone Number [facility] [address] [place] [address], [id number] * (ABNORMAL) RETICULOCYTE CT, AUTO (03/07/2025 11:43 PM CDT) Pathologist [facility] % RETICULOCYTE COUNT 0.3(L) 0.6 - 2.3 % 03/08/2025 1:02 AM CDT [facility] ABSOLUTE RETICULOCYTE 0.01(L) 0.02 - 0.10 x10'6/uL 03/08/2025 1:02 AM CDT [facility] IMMATURE RETIC FRACTION 5.1 3.0 - 15.9 % 03/08/2025 1:02 AM CDT [facility] RETIC HGB 37.7(H) 28.0 - 35.0 PG 03/08/2025 1:02 AM CDT [facility] 03/07/2025 11:4 3 PM CDT Wesly Steve MD LABORATORY Final Result Performing Organization Address [facility] de Phone Number [facility] [address] [place] [address], [id number] * (ABNORMAL) EBV (RHONDA CAMP VIRUS) AB PANEL COMPREHENSIVE (INCL. EARLY AG D AB) (03/07/2025 11:41 PM CDT) [facility] EBV EARLY ANTIGEN-D AB IGG 71.00(H) <9.00 U/mL 03/12/2025 7:03 PM CDT [facility] DAIJA COX Comment: The potential exists for cross-reactivity with HIV (Human Immunodeficiency Virus) which could cause a false positive EBV-EA result. U/mL Interpretation <9.00 Negative 9.00 - 10.99 Equivocal >10.99 Positive EBV VCA IGM <36.00 <36.00 U/mL 03/12/2025 7:03 PM CDT [facility] Comment: U/mL Interpretation <36.00 Negative 36.00 - 43.99 Equivocal >43.99 Positive RHONDA BAR NUCLEAR ANTIGEN IGG 69.90(H) <18.00 U/mL 03/12/2025 7:03 PM CDT [facility] Comment: U/mL Interpretation <18.00 Negative 18.00 - 21.99 Equivocal >21.99 Positive EBV VCA IGG 262.00(H) <18.00 U/mL 03/12/2025 7:03 PM CDT [facility] Comment: U/mL Interpretation <18.00 Negative 18.00 - 21.99 Equivocal >21.99 Positive Test Performed by [facility], [facility], [address] [place] [address] Noe Hernandez M.D., Ph.D., Director of Laboratories , [facility] [id number] 03/07/2025 11:4 1 PM CDT Wesly Steve MD LABORATORY Final Result [facility] [address], * [id number] ACT W/RFLX INHIBITOR (03/07/2025 11:41 PM CDT) [id number] ACTIVITY 0.79 0.68 - 1.63 IU/mL 03/10/2025 3:29 PM CDT [facility] Comment: Activity levels below 0.10 IU/mL are seen in acquired and hereditary thrombotic thrombocytopenic purpura (TTP). Not all patients with TTP will exhibit low levels of [id number] activity with this assay, i.e., post bone marrow transplantation, drug-induced TTP, and mutations of YUODKR21 at the CUB domain. Recent plasma exchange or immunosuppressive therapy may raise the observed activity levels. Mild decreases in WEKAYT37 activity are seen in a wide variety of conditions including metastatic cancer, neonates, serious infections and cirrhosis of the liver. For more information on this test, go to http://education.I[employer]/faq/CNX559 Test Performed by [facility], [facility], [address] [place] [address] Noe Hernandez M.D., Ph.D., Director of Laboratories , [facility] [id number] 03/07/2025 11:4 1 PM CDT Wesly Steve MD LABORATORY Final Result Performing Organization Address [facility]/ZIP Co de Phone Number [facility] [place] [id number] [place], [place] , [place] [phone] * (ABNORMAL) PROCALCITONIN (PCT) (03/07/2025 11:41 PM CDT) PROCALCITONIN 2.85(H) 0.00 - 0.49 NG/ML 03/08/2025 1:14 PM CDT [facility] Comment: VALUES ABOVE 2.00 NG/ML ARE HIGHLY SUGGESTIVE OF SEPSIS OR OTHER SEVERE BACTERIAL INFECTION. 03/07/2025 11:4 1 PM CDT us Wesly Steve MD LABORATORY Final Result [facility] [address] [place] [address], [place] [phone] * (ABNORMAL) TSH W/REFLEX (03/07/2025 11:41 PM CDT) TSH 0.250(L) 0.358 - 3.740 uIU/ML 03/08/2025 12:47 AM CDT [facility] Comment: ASSAY PERFORMED BY CHEMILUMINESCENCE METHODOLOGY USING SIEMENS DIMENSION VISTA REAGENT. PATIENT RESULTS DETERMINED BY ASSAYS USING DIFFERENT MANUFACTURERS FOR METHODS MAY NOT BE COMPARABLE. 03/07/2025 11:4 1 PM CDT us Wesly Steve MD LABORATORY Final Result Performing Organization Address City/[facility]/ZIP Co de Phone Number [facility] [address] [place] [address], [id number] * CMV DNA QUANT REAL TIME PCR (03/07/2025 11:41 PM CDT) Pathologist [facility] SPECIMEN SOURCE EDTA PLASMA 03/08/20 8:43 AM CDT [facility] CMV DNA QN PCR (BLD) Not Detected IU/mL 03/10/2025 6:53 PM CDT [facility] CMV DNA QUANT PCR (BLD) Not Detected log IU/mL 03/10/2025 6:53 PM CDT [facility] Comment: REFERENCE RANGE: NOT DETECTED For additional information, please refer to http://education.Obeo.Mediamind/faq/CMVandEBVPCR (This link is being provided for informational/ educational purposes only.) Test Performed by [facility], [facility], [address] [place] [address] Noe Hernandez M.D., Ph.D., Director of Laboratories , [facility] [id number] 03/07/2025 11:4 1 PM CDT us Wesly Steve MD LABORATORY Final Result Performing Organization Address City/[facility]/ZIP Co de Phone Number [facility] [address], [place] [phone] [facility] [address] [place] [address], [place] [phone] * (ABNORMAL) IRON SATURATION PANEL (FE,IBC,%SAT) (03/07/2025 11:41 PM CDT) Pathologist [facility] IRON 53 50 - 170 MCG/DL 03/08/2025 12:47 AM CDT [facility] IRON BINDING CAPACITY 202(L) 250 - 450 MCG/DL 03/08/2025 12:47 AM CDT [facility] IRON SATURATION 26 % 12:47 AM CDT [facility] Comment:REFERENCE RANGE NOT ESTABLISHED 03/07/2025 11:4 1 PM CDT us Wesly Steve MD LABORATORY Final Result [facility] [address] [place] [address], [id number] * VITAMIN B-12 (03/07/2025 11:41 PM CDT) Pathologist [facility] VITAMIN B12 S/P/B 511 193 - 986 PG/ML 03/08/2025 12:35 AM CDT [facility] 03/07/2025 11:4 1 PM CDT us Wesly Steve MD LABORATORY Final Result [facility] [address] [place] [address], [id number] * SED RATE, ERYTHROCYTE (ESR,WSR) (03/07/2025 11:41 PM CDT) Pathologist [facility] ESR 15 0 - 20 MM/HR 03/08/2025 12:03 AM CDT [facility] 03/07/2025 11:4 1 PM CDT Wesly Steve MD LABORATORY Final Result [facility] [address] [place] [address], [id number] * (ABNORMAL) COMPREHENSIVE METABOLIC PANEL (03/07/2025 11:41 PM CDT) SODIUM S/P/B 137 136 - 145 MMOL/L 03/08/2025 12:47 AM CDT [facility] POTASSIUM S/P/B 3.4(L) 3.5 - 5.1 MMOL/L 03/08/2025 12:47 AM CDT [facility] CHLORIDE S/P/B 107 97 - 115 MMOL/L 03/08/2025 12:47 AM CDT [facility] CO2 24.5 21.0 - 32.0 MMOL/L 03/08/2025 12:47 AM CDT [facility] GLUCOSE 261(H) 74 - 106 MG/DL 03/08/2025 12:47 AM CDT [facility] BUN 8 7 - 18 MG/DL 03/08/2025 12:47 AM CDT [facility] CREATININE S/P/B 0.80 0.55 - 1.02 MG/DL 03/08/2025 12:47 AM CDT [facility] CALCIUM S/P/B 8.0(L) 8.5 - 10.1 MG/DL 03/08/2025 12:47 AM CDT [facility] BILIRUBIN TOTAL S/P/B 0.4 0.2 - 1.0 MG/DL 03/08/2025 12:47 AM CDT [facility] ALKALINE PHOSPHATASE S/P/B 71 46 - 118 U/L 03/08/2025 12:47 AM CDT [facility] AST 43(H) 15 - 37 U/L 03/08/2025 12:47 AM CDT [facility] ALT 46 13 - 56 U/L 03/08/2025 12:47 AM T [facility] TOTAL PROTEIN S/P/B 6.5 6.4 - 8.2 G/DL 03/08/2025 12:47 AM CDT [facility] ALBUMIN S/P/B 2.9(L) 3.4 - 5.0 G/DL 03/08/2025 12:47 AM CDT [facility] ANION GAP 5.5 2.0 - 10.0 MMOL/L 03/08/2025 12:47 AM T [facility] OSMOLALITY (CALC) 291 MOSM/KG 025 12:47 AM T [facility] Comment:REFERENCE RANGE NOT ESTABLISHED GFR ESTIMATE 85(L) >90 ML/MIN/1. 73 M2 03/08/2025 12:47 AM T [facility] GFR NOTES GFR REFERENCE S: 03/08/2025 12:47 AM [facility] Comment: THE ESTIMATED GFR IS [...] us Wesly Steve MD LABORATORY Final Result [facility] [address] [place] [address], [place] [phone] [phone] * (ABNORMAL) LDH, LACTATE DEHYDROGENASE (03/07/2025 11:41 PM CDT) Pathologist [facility] LDH 249(H) 84 - 246 UNITS/L 03/08/2025 12:47 AM CDT [facility] 03/07/2025 11:4 1 PM CDT Wesly Steve MD LABORATORY Final Result [facility] [address] [place] [address], [phone] * (ABNORMAL) DIC PANEL (03/07/2025 11:41 PM CDT) Pathologist [facility] PROTIME 12.1 9.4 - 12.5 SEC 03/08/2025 12:11 AM CDT [facility] INR 1.1 0.8 - 1.1 03/08/2025 12:11 AM CDT [facility] PTT 27.3 25.1 - 36.5 SEC 03/08/2025 12:12 AM CDT [facility] FIBRINOGEN 330 200 - 393 MG/DL 03/08/2025 12:10 AM CDT [facility] D-DIMER 932(H) 0 - 500 ng{FEU}/m L 03/08/2025 12:11 AM CDT [facility] EXCLUSION STATEMENT 03/08/2025 12:11 AM CDT [facility] Comment: D-Dimer values less than or [...] - 350 x10'3/uL 03/07/2025 11:58 PM CDT [facility] 03/07/2025 11:4 1 PM CDT us Wesly Steve MD LABORATORY Final Result Performing Organization Address City/[facility]/ZIP Co de Phone Number [facility] [address] [place] [address], [place] [phone] * (ABNORMAL) C-REACTIVE PROTEIN (03/07/2025 11:41 PM CDT) C-REACTIVE PROTEIN 2.96(H) <0.80 mg/dL 03/08/2025 12:47 AM CDT [facility] 03/07/2025 11:4 1 PM CDT us Wesly Steve MD LABORATORY Final Result Performing Organization Address [facility] Co de Phone Number [facility] [address] [place] [address], [place] [phone] * BLOOD SMEAR PERIPHERAL INTERP PHYS W/WRIT REPORT (03/07/2025 11:41 PM CDT) CBC PATHOLOGIST COMMENT SENT TO PATHOLOGIST FOR REVIEW 03/08/2025 3:04 PM CDT [facility] 03/07/2025 11:4 1 PM CDT us Wesly Steve MD LABORATORY Final Result Performing Organization Address [facility]/ZIP Co de Phone Number [facility] [address] [place] [address], [place] [phone] * FOLIC ACID SERUM (03/07/2025 11:41 PM CDT) FOLATE 5.2 3.1 - 17.5 NG/ML 03/08/2025 12:35 AM CDT [facility] 03/07/2025 11:4 1 PM CDT Wesly Steve MD LABORATORY Final Result Performing Organization Address City/[facility] Co de Phone Number [facility] [address] [place] [address], [phone] * (ABNORMAL) THYROXINE, FREE (FT4) (03/07/2025 11:41 PM CDT) FREE T4 1.55(H) 0.76 - 1.46 NG/DL 03/08/2025 1:05 AM CDT [facility] 03/07/2025 11:4 1 PM CDT Wesly Steve MD LABORATORY Final Result Performing Organization Address [facility] de Phone Number [facility] [address] [place] [address], [place] [phone] * Pathology (03/07/2025 12:00 AM CDT) PATHOLOGY [facility] Department of Laboratory Medicine [address] [place] [address] , extension [phone] Pathology Report Peripheral Smear Report Name: IVETH BOOGIE Specimen #: [id number] Age: 6 1965 (Age: 60) Location: [facility] [facility] Sex: F Procedure Date: 03/07/2025 Hospital #: [id number] Date Received: 03/08/2025 Date Reported: 03/08/2025 Provider: [...] 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 [id number] testing is pending at the time of [...] Interpretation and sign out were performed at [address], [address] [place] [address]. [facility] 03/07/2025 03/08/2025 7:5 2 AM CDT Comment:Peripheral blood us Wesly Steve MD PATHOLOGY/CYTOLOGY ORDERABLES F inal Result [facility] [address] [place] [address], [id number] * PROTIME/INR, VENOUS (01/26/2025 3:25 PM CDT) PROTIME 11.9 9.4 - 12.5 SEC 01/26/2025 3:40 PM CDT [facility] INR 1.0 0.8 - 1.0 01/26/2025 3:40 PM CDT [facility] 01/26/2025 3:25 PM CDT Bharat Young DO LABORATORY Final Result [facility] [address] [place] [address], [place] [phone] from Last 3 Months Insurance MEDICAID MEDICARE Advance Directives * Full Code (Latest Code Status on File) Date Activated Date Inactivated Comments 03/07/2025 10:49 PM 03/12/2025 8:04 PM Care Teams Brine Purifier Relationship Specialty Start Date End Date Reagan Fonseca MD [address] [place] [address] PCP - General FAMILY PRACTICE 01/26/25
--- OUTSIDE RECORDS SUMMARY | 2025-03-20 16:23 | XMS_ITS ---
Author Organization Unknown Address [address] [place] [phone] Phone Care Team Providers Care Machine Maintenance Name Role Phone JOHAN SULLIVAN Attending Unavailable Immunization Immunization Date Status Additional Notes Code Code System Tdap 03/26/2021 Completed 115 CVX Results CBC W/ DIFF - Collect Date/T sarah: 01/08/2025 13:23 [facility] ID: [id number] [address] [place] [address], [phone] LOINC: 60146-7 Test Value Unit Reference Range Code Code [...] H=36.0 L PLATELETS 43 10^3uL L=100 H=400 79624-9 LOINC L RDW 16.1 % L=11.7 H=15.5 H %GRAN L=40.0 H=70.0 51611-1 LOINC %LYMPH L=20.0 H=45.0 736-9 LOINC %MONO L=2.0 H=10.0 28847-1 LOINC %EOS L=0.0 H=6.0 713-8 LOINC %BASO L=0.0 H=3.0 706-2 LOINC #NEUT L=1.9 H=7.6 79409-7 LOINC #LYMPH L=0.9 H=4.9 08862-1 LOINC #MONO L=0.1 H=0.9 54520-3 LOINC #EOS L=0.0 H=0.6 712-0 LOINC #BASO L=0.00 H=0.10 27562-5 LOINC #IM GRANS L=0.0 H=7.0 44988-5 LOINC %IM GRANS L=0.0 H=5.0 39667-2 LOINC %NRB L=0.0 H=0.2 43019-3 LOINC #NRB L=0.000 H=0.012 21148-1 LOINC MANUAL DIFF SEE BELOW A SEG [...] L=0 H=0 BLASTS 0 % L=0 H=0 86772-7 LOINC PANDA LYMPHS 0.00 % L=0.00 H=5.00 SMUDGE CELLS 0 % L=0 H=0 NRBC 0.0 % L=0.0 H=0.0 PLTS DECREASED NEUT # 0.7 10^3uL L=1.9 H=7.6 LL LYMPH # 1.2 10^3uL L=0.9 H=4.9 MONO # 0.0 10^3uL L=0.1 H=0.9 L EOS # 0.1 10^3uL L=0.0 H=0.6 712-0 LOINC BASO # 0.0 10^3uL L=0.0 H=0.1 50123-3 LOINC RBC MORPH NOT INDICATED COMPREHENSIVE METABOLIC PANE L - Collect Date/Time: 01/08/2025 13:23 [facility] ID: [id number] [address] [place], [place], [phone] LOINC: 69278-2 Test Value Unit Reference Range Code Code [...] 2028-9 LOINC ANION GAP 10 L=10 H=20 48356-6 LOINC OSMOLALITY 288 mOs/kG L=280 H=296 62685-5 LOINC BUN/CREAT 13.3 3097-3 LOINC CALCIUM 8.9 mg/dL L=8.3 H=10.5 62297-9 LOINC AST 23 U/L L=15 H=46 1920-8 LOINC ALT 15 U/L L=9 H=72 1742-6 LOINC ALKALINE PHOS 61 U/L L=38 H=126 6768-6 LOINC TOTAL BILI 0.3 mg/dL L=0.2 H=1.3 1975-2 LOINC ALBUMIN 3.9 G/dL L=3.5 H=5.0 1751-7 LOINC TOTAL PROTEIN 7.6 g/L L=6.3 H=8.2 2885-2 LOINC A/G RATIO 1.1 03568-2 LOINC AGE 59 28383-0 LOINC eGFR NON-AFR 69 ml/min eGFR AFR AMER 83 ml/min Social History Type Status Start Date End Date Code Code Syst em Smoking History Unknown if ever smoked [address] Sex Female Hospital Discharge Instructions [...]
--- OUTSIDE RECORDS SUMMARY | 2025-03-20 16:23 | XMS_ITS | Encounter Summary ---
Author Organization [facility] Address [address] [place] [id number] Care Team Providers Care Boat Buffer Plastic Name Role Phone Reagan Fonseca MD Primary Care Provider [phone] Encounter Details Date Type Department Care Team (Late st Contact Info) Description 02/24/2019 Abstract [facility]FL CONVERSION [address] [place] [address] , Generic Conversion, Social History Tobacco Use [...] on filedocumented in this encounter Care Teams Boat Buffer Plastic Relationship Specialty Start Date End Date Reagan Fonseca MD [address] [place] [address] PCP - General FAMILY PRACTICE 01/26/25 documented as of this encounter
--- OUTSIDE RECORDS SUMMARY | 2025-03-20 16:23 | XMS_ITS | Encounter Summary ---
Author Organization [facility] Address [address] [place] [address] Care Team Providers Care Crocheter Name Role Phone Reagan Fonseca MD Primary Care Provider Encounter Details Date Type Department Care Team (Late st Contact Info) Description 12/03/2017 Abstract [facility] CONVERSION [address] [place] [address] , Generic Conversion, Social History Tobacco Use [...] on filedocumented in this encounter Care Teams Crocheter Relationship Specialty Start Date End Date Reagan Fonseca MD [address] [place] [address] PCP - General FAMILY PRACTICE 01/26/25 documented as of this encounter
--- OUTSIDE RECORDS SUMMARY | 2025-03-20 16:24 | XMS_ITS ---
Author Organization Unknown Address [address] [place] [phone] Phone Care Team Providers Care Customs Officer Name Role Phone PIPPA KNOX Attending Unavailable JOHAN SULLIVAN Primary Unavailable Immunization Immunization Date Status Additional Notes Code Code System Tdap 03/26/2021 Completed 115 CVX Results CBC W/ DIFF - Collect Date/T sarah: 01/23/2025 14:13 [facility] ID: [id number] [address] [place] [address], [id number] LOINC: 64018-9 Test Value Unit Reference Range Code Code [...] H=36.0 L PLATELETS 32 10^3uL L=100 H=400 00325-0 LOINC L RDW 17.1 % L=11.7 H=15.5 H %GRAN L=40.0 H=70.0 58267-2 LOINC %LYMPH L=20.0 H=45.0 736-9 LOINC %MONO L=2.0 H=10.0 68555-8 LOINC %EOS L=0.0 H=6.0 713-8 LOINC %BASO L=0.0 H=3.0 706-2 LOINC #NEUT L=1.9 H=7.6 11846-4 LOINC CALLED TO: CHRISTOPH MÁRQUEZ AT: 1448 01/23/25 BY: SDK #LYMPH L=0.9 H=4.9 26982-5 LOINC #MONO L=0.1 H=0.9 06558-4 LOINC #EOS L=0.0 H=0.6 712-0 LOINC #BASO L=0.00 H=0.10 44289-3 LOINC #IM GRANS L=0.0 H=7.0 94693-4 LOINC %IM GRANS L=0.0 H=5.0 21525-4 LOINC %NRB L=0.0 H=0.2 28406-9 LOINC #NRB L=0.000 H=0.012 15090-5 LOINC MANUAL DIFF SEE BELOW A SEG [...] L=0 H=0 BLASTS 0 % L=0 H=0 92304-4 LOINC PANDA LYMPHS 10.00 % L=0.00 H=5.00 H SMUDGE CELLS 0 % L=0 H=0 NRBC 0.0 % L=0.0 H=0.0 PLTS DECREASED NEUT # 0.6 10^3uL L=1.9 H=7.6 LL LYMPH # 1.0 10^3uL L=0.9 H=4.9 MONO # 0.1 10^3uL L=0.1 H=0.9 EOS # 0.1 10^3uL L=0.0 H=0.6 712-0 LOINC BASO # 0.0 10^3uL L=0.0 H=0.1 13514-7 LOINC RBC MORPH NOT INDICATED COMPREHENSIVE METABOLIC PANE L - Collect Date/Time: 01/23/2025 14:13 [facility] ID: [id number] [address] [place], [place], [phone] LOINC: 26359-5 Test Value Unit Reference Range Code Code [...] 2028-9 LOINC ANION GAP 9 L=10 H=20 16421-8 LOINC L OSMOLALITY 291 mOs/kG L=280 H=296 10939-6 LOINC BUN/CREAT 13.8 3097-3 LOINC CALCIUM 8.7 mg/dL L=8.3 H=10.5 58665-7 LOINC AST 20 U/L L=15 H=46 1920-8 LOINC ALT 12 U/L L=9 H=72 1742-6 LOINC ALKALINE PHOS 71 U/L L=38 H=126 6768-6 LOINC TOTAL BILI 0.2 mg/dL L=0.2 H=1.3 1975-2 LOINC ALBUMIN 3.7 G/dL L=3.5 H=5.0 1751-7 LOINC TOTAL PROTEIN 6.8 g/L L=6.3 H=8.2 2885-2 LOINC A/G RATIO 1.2 66967-2 LOINC AGE 59 58547-9 LOINC eGFR NON-AFR 79 ml/min eGFR AFR AMER 96 ml/min BB ABO AND RH TYPE - Collect Date/Time: 01/23/2025 14:13 [facility] ID: [id number] [address] [place], [place], [phone] LOINC: 45633-0 Test Value Unit Reference Range Code Code System Flag ABO TYPE A 883-9 LOINC RH TYPE POSITIVE BB RETYPE ABO AND RH TYPE - Collect Date/Time: 01/23/2025 14:13 [facility] ID: [id number] [address] [place], [place], [id number] LOINC: 38703-0 Test Value Unit Reference Range Code Code System Flag ABO TYPE A 883-9 LOINC RH TYPE POSITIVE Social History Type Status Start Date End Date Code Code Syst em Smoking History Unknown if ever smoked [address] Sex Female Hospital Discharge Instructions [...]
--- OUTSIDE RECORDS SUMMARY | 2025-03-20 16:24 | XMS_ITS ---
Author Organization Unknown Address [address] [place] [phone] Phone Care Team Providers Care Wound Care Specialist Name Role Phone PIPPA GREGORIONISHA Attending Unavailable JOHAN SULLIVAN Primary Unavailable Immunization Immunization Date Status Additional Notes Code Code System Tdap 03/26/2021 Completed 115 CVX Social History Type Status Start Date End Date Code Code Syst em Smoking History Unknown if ever smoked [address] Sex Female Vital Signs Vital Sign Value Unit Ripley Value Ripley Unit Date/Time Recent/Initial? Code Code System Body Mass Index 34.97 kg/m2 02/04/2025 09:56 Initial 85952 -5 [facility] Systolic Blood Pressure 168 mm[Hg] 02/04/2025 09:53 Initial 8480- 6 LOINC Diastolic Blood Pressure 73 mm[Hg] 02/04/2025 09:53 Initial 8462- 4 INC Body Surface Area 2.24 m2 02/04/2025 09:56 Initial 3140- 1 LOINC Height 172.720 0 cm 68.00 in 02/04/2025 09:56 Initial 8302- 2 LOINC O2 Saturation 100 % 2024 09:53 Initial 63479 -5 LOINC Pulse 99.0 /min 02/04/2025 09:53 Initial 8867- 4 LOINC Respiration 22 /min 02/05/20 09:53 Initial 9279- 1 LOINC Temperature 36.3 Freda 97.3 F 02/05/20 09:53 Initial 8310- 5 LOINC Weight 104.33 kg 230.00 lbs 02/04/2025 09:56 Initial 96742 -7 INC Hospital Discharge Instructions Should you [...]
--- OUTSIDE RECORDS SUMMARY | 2025-03-20 16:26 | XMS_ITS ---
Author Organization Unknown Address [address] [place] [phone] Phone Care Team Providers Care Rail Grinder Name Role Phone JOHAN SULLIVAN Attending Unavailable Immunization Immunization Date Status Additional Notes Code Code System Tdap 03/26/2021 Completed 115 CVX Results US GALLBLADDER - Completed: 12/25/2024 12:00 LOINC: \TM00\\12PI\\DRAo\\BM09\ \MRHo\ [address] [address] ---------NAME--------- NUMBER SEX AGE ADMIT DISC. XRAY# F/C TYPE CHUYITA TONY [id number] F 59 12/25/24 12/25/24 [id number] MBJ O/P DATE OF : 1965 M/R# [id number] PH#: [phone] RM \MRHx\ LOCATION: TRANSCRIBED: 12/25/24 13:39 US GALLBLADDER [id number] COMPLETED:12/25/24 12:00 APC [id number] {REASON-US ABD: ABDOMINAL PAIN PHYSICIAN: JOHAN R [...] of gallstones or acute cholecystitis. Hepatic steatosis. CH INSTRUCTOR \ITLo\ \UNDo\ \UNDx\ \ITLx\ Reviewed and Electronically Signed by: Ivan Acosta MD Signed Date: 12/25/24 13:39 Social History Type Status Start Date End Date Code Code Syst em Smoking History Unknown if ever smoked [address] Sex Female Hospital Discharge Instructions [...] - Primary care physician Imaging Narrative Notes [facility] 12/25/2024 13:[address] [address] ---------NAME--------- NUMBER SEX AGE ADMIT DISC. XRAY# F/C TYPE CHUYITA TONY [id number] F 59 12/25/24 12/25/24 [id number] MBJ O/P DATE OF : 1965 M/R# [id number] #: [id number] LOCATION: TRANSCRIBED: 12/25/24 13:39 US GALLBLADDER [id number] COMPLETED:12/25/24 12:00 APC [id number] {REASON-US ABD: ABDOMINAL PAIN PHYSICIAN: JOHAN RADIOLOGY [...] of gallstones or acute cholecystitis. Hepatic steatosis. CH INSTRUCTOR Reviewed and Electronically Signed by: Ivan Acosta MD Signed Date: 12/25/24 13:39
--- NOTE | 2025-03-20 16:35 | PC.NURSE ---
PICC line removed and dressing held in place for 5 minutes.New dressing placed and wrapped in [place]. Instructed pt and daughter to remove when getting home, and signs to look out for to return to ED.
--- OUTSIDE RECORDS SUMMARY | 2025-03-20 16:43 | XMS_ITS ---
Author Organization Unknown Address [address] [place] [phone] Phone Care Team Providers Care Upfitter Name Role Phone JOHAN SULLIVAN Attending Unavailable Immunization Immunization Date Status Additional Notes Code Code System Tdap 03/26/2021 Completed 115 CVX Results CBC W/ DIFF - Collect Date/T sarah: 01/08/2025 13:23 [facility] ID: [id number] [address] [place] [address], [id number] LOINC: 81232-4 Test Value Unit Reference Range Code Code [...] H=36.0 L PLATELETS 43 10^3uL L=100 H=400 55773-2 LOINC L RDW 16.1 % L=11.7 H=15.5 H %GRAN L=40.0 H=70.0 25489-4 LOINC %LYMPH L=20.0 H=45.0 736-9 LOINC %MONO L=2.0 H=10.0 15899-0 LOINC %EOS L=0.0 H=6.0 713-8 LOINC %BASO L=0.0 H=3.0 706-2 LOINC #NEUT L=1.9 H=7.6 34935-1 LOINC #LYMPH L=0.9 H=4.9 16331-1 LOINC #MONO L=0.1 H=0.9 26176-1 LOINC #EOS L=0.0 H=0.6 712-0 LOINC #BASO L=0.00 H=0.10 45635-3 LOINC #IM GRANS L=0.0 H=7.0 78586-5 LOINC %IM GRANS L=0.0 H=5.0 10032-6 LOINC %NRB L=0.0 H=0.2 87004-6 LOINC #NRB L=0.000 H=0.012 14037-3 LOINC MANUAL DIFF SEE BELOW A SEG [...] L=0 H=0 BLASTS 0 % L=0 H=0 62024-0 LOINC PANDA LYMPHS 0.00 % L=0.00 H=5.00 SMUDGE CELLS 0 % L=0 H=0 NRBC 0.0 % L=0.0 H=0.0 PLTS DECREASED NEUT # 0.7 10^3uL L=1.9 H=7.6 LL LYMPH # 1.2 10^3uL L=0.9 H=4.9 MONO # 0.0 10^3uL L=0.1 H=0.9 L EOS # 0.1 10^3uL L=0.0 H=0.6 712-0 LOINC BASO # 0.0 10^3uL L=0.0 H=0.1 74977-4 LOINC RBC MORPH NOT INDICATED COMPREHENSIVE METABOLIC PANE L - Collect Date/Time: 01/08/2025 13:23 [facility] ID: [id number] [address] [place], [place], [phone] LOINC: 12193-1 Test Value Unit Reference Range Code Code [...] 2028-9 LOINC ANION GAP 10 L=10 H=20 94267-4 LOINC OSMOLALITY 288 mOs/kG L=280 H=296 57160-2 LOINC BUN/CREAT 13.3 3097-3 LOINC CALCIUM 8.9 mg/dL L=8.3 H=10.5 79784-4 LOINC AST 23 U/L L=15 H=46 1920-8 LOINC ALT 15 U/L L=9 H=72 1742-6 LOINC ALKALINE PHOS 61 U/L L=38 H=126 6768-6 LOINC TOTAL BILI 0.3 mg/dL L=0.2 H=1.3 1975-2 LOINC ALBUMIN 3.9 G/dL L=3.5 H=5.0 1751-7 LOINC TOTAL PROTEIN 7.6 g/L L=6.3 H=8.2 2885-2 LOINC A/G RATIO 1.1 69768-8 LOINC AGE 59 83619-2 LOINC eGFR NON-AFR 69 ml/min eGFR AFR AMER 83 ml/min Social History Type Status Start Date End Date Code Code Syst em Smoking History Unknown if ever smoked [address] Sex Female Hospital Discharge Instructions [...]
--- OUTSIDE RECORDS SUMMARY | 2025-03-20 16:43 | XMS_ITS ---
Author Organization Unknown Address [address] [place] [phone] Phone Care Team Providers Care Inventory Transcriber Name Role Phone PIPPA BURCIAGAWade Attending Unavailable JOHAN SULLIVAN Primary Unavailable Immunization Immunization Date Status Additional Notes Code Code System Tdap 03/26/2021 Completed 115 CVX Results CBC W/ DIFF - Collect Date/T sarah: 01/23/2025 14:13 [facility] ID: [id number] [address] [place], [place], [id number] LOINC: 12078-1 Test Value Unit Reference Range Code Code [...] H=36.0 L PLATELETS 32 10^3uL L=100 H=400 06497-6 LOINC L RDW 17.1 % L=11.7 H=15.5 H %GRAN L=40.0 H=70.0 61390-6 LOINC %LYMPH L=20.0 H=45.0 736-9 LOINC %MONO L=2.0 H=10.0 21216-2 LOINC %EOS L=0.0 H=6.0 713-8 LOINC %BASO L=0.0 H=3.0 706-2 LOINC #NEUT L=1.9 H=7.6 58955-0 LOINC CALLED TO: CHRISTOPH BillingsleyHONORIO AT: 1448 01/23/25 BY: SDK #LYMPH L=0.9 H=4.9 41266-2 LOINC #MONO L=0.1 H=0.9 92948-1 LOINC #EOS L=0.0 H=0.6 712-0 LOINC #BASO L=0.00 H=0.10 69297-0 LOINC #IM GRANS L=0.0 H=7.0 48406-3 LOINC %IM GRANS L=0.0 H=5.0 60830-9 LOINC %NRB L=0.0 H=0.2 49577-3 LOINC #NRB L=0.000 H=0.012 75388-1 LOINC MANUAL DIFF SEE BELOW A SEG [...] L=0 H=0 BLASTS 0 % L=0 H=0 46560-7 LOINC PANDA LYMPHS 10.00 % L=0.00 H=5.00 H SMUDGE CELLS 0 % L=0 H=0 NRBC 0.0 % L=0.0 H=0.0 PLTS DECREASED NEUT # 0.6 10^3uL L=1.9 H=7.6 LL LYMPH # 1.0 10^3uL L=0.9 H=4.9 MONO # 0.1 10^3uL L=0.1 H=0.9 EOS # 0.1 10^3uL L=0.0 H=0.6 712-0 LOINC BASO # 0.0 10^3uL L=0.0 H=0.1 61108-9 LOINC RBC MORPH NOT INDICATED COMPREHENSIVE METABOLIC PANE L - Collect Date/Time: 01/23/2025 14:13 [facility] ID: [id number] [address] [place], [place], [id number] LOINC: 68042-4 Test Value Unit Reference Range Code Code [...] 2028-9 LOINC ANION GAP 9 L=10 H=20 12355-4 LOINC L OSMOLALITY 291 mOs/kG L=280 H=296 98563-0 LOINC BUN/CREAT 13.8 3097-3 LOINC CALCIUM 8.7 mg/dL L=8.3 H=10.5 19862-9 LOINC AST 20 U/L L=15 H=46 1920-8 LOINC ALT 12 U/L L=9 H=72 1742-6 LOINC ALKALINE PHOS 71 U/L L=38 H=126 6768-6 LOINC TOTAL BILI 0.2 mg/dL L=0.2 H=1.3 1975-2 LOINC ALBUMIN 3.7 G/dL L=3.5 H=5.0 1751-7 LOINC TOTAL PROTEIN 6.8 g/L L=6.3 H=8.2 2885-2 LOINC A/G RATIO 1.2 21468-0 LOINC AGE 59 42913-7 LOINC eGFR NON-AFR 79 ml/min eGFR AFR AMER 96 ml/min BB ABO AND RH TYPE - Collect Date/Time: 01/23/2025 14:13 [facility] ID: [id number] [address] [place], [place], [id number] LOINC: 44843-5 Test Value Unit Reference Range Code Code System Flag ABO TYPE A 883-9 LOINC RH TYPE POSITIVE BB RETYPE ABO AND RH TYPE - Collect Date/Time: 01/23/2025 14:13 [facility] ID: [id number] [address] [place], [place], [id number] LOINC: 01615-8 Test Value Unit Reference Range Code Code System Flag ABO TYPE A 883-9 LOINC RH TYPE POSITIVE Social History Type Status Start Date End Date Code Code Syst em Smoking History Unknown if ever smoked [address] Sex Female Hospital Discharge Instructions [...]
--- OUTSIDE RECORDS SUMMARY | 2025-03-20 16:44 | XMS_ITS ---
Author Organization Unknown Address [address] [place] [phone] Phone Care Team Providers Care Other Spatial Scientist Name Role Phone PIPPA GREGORIONISHA Attending Unavailable JOHAN SULLIVAN Primary Unavailable Immunization Immunization Date Status Additional Notes Code Code System Tdap 03/26/2021 Completed 115 CVX Social History Type Status Start Date End Date Code Code Syst em Smoking History Unknown if ever smoked [address] Sex Female Vital Signs Vital Sign Value Unit Barbour Value Barbour Unit Date/Time Recent/Initial? Code Code System Body Mass Index 34.97 kg/m2 02/04/2025 09:56 Initial 87128 -5 [facility] Systolic Blood Pressure 168 mm[Hg] 02/04/2025 09:53 Initial 8480- 6 LOINC Diastolic Blood Pressure 73 mm[Hg] 02/04/2025 09:53 Initial 8462- 4 INC Body Surface Area 2.24 m2 02/04/2025 09:56 Initial 3140- 1 LOINC Height 172.720 0 cm 68.00 in 02/04/2025 09:56 Initial 8302- 2 LOINC O2 Saturation 100 % 2024 09:53 Initial 82221 -5 LOINC Pulse 99.0 /min 02/04/2025 09:53 Initial 8867- 4 LOINC Respiration 22 /min 02/05/20 09:53 Initial 9279- 1 LOINC Temperature 36.3 Freda 97.3 F 02/05/20 09:53 Initial 8310- 5 LOINC Weight 104.33 kg 230.00 lbs 02/04/2025 09:56 Initial 31223 -7 INC Hospital Discharge Instructions Should you [...]
--- OUTSIDE RECORDS SUMMARY | 2025-03-20 16:45 | XMS_ITS ---
Author Organization Unknown Address [address] [place] [phone] Phone Care Team Providers Care Road Mender Name Role Phone JOHAN SULLIVAN Attending Unavailable Immunization Immunization Date Status Additional Notes Code Code System Tdap 03/26/2021 Completed 115 CVX Results US GALLBLADDER - Completed: 12/25/2024 12:00 LOINC: \TM00\\12PI\\DRAo\\BM09\ \MRHo\ [address] [address] ---------NAME--------- NUMBER SEX AGE ADMIT DISC. XRAY# F/C TYPE CHUYITA TONY [id number] F 59 12/25/24 12/25/24 40553 MBJ O/P DATE OF : 1965 M/R# [id number] PH#: [phone] RM \MRHx\ LOCATION: TRANSCRIBED: 12/25/24 13:39 US GALLBLADDER [id number] COMPLETED:12/25/24 12:00 APC [id number] {REASON-US ABD: ABDOMINAL PAIN PHYSICIAN: JOHAN R [...] of gallstones or acute cholecystitis. Hepatic steatosis. 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 XRAY# F/C TYPE CHUYITA TONY [id number] F 59 12/25/24 12/25/24 65470 MBJ O/P DATE OF : 1965 M/R# [id number] #: [phone] LOCATION: TRANSCRIBED: 12/25/24 13:39 US GALLBLADDER [id number] COMPLETED:12/25/24 12:00 APC [id number] {REASON-US ABD: ABDOMINAL PAIN PHYSICIAN: JOHAN RADIOLOGY [...] of gallstones or acute cholecystitis. Hepatic steatosis. 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
== END 2025-03-20 16:49 | disposition home or self-care (01) ==
PROVIDERS: Emergency Provider Internal Medicine Critical Care Medicine; PCP Family Medicine
DX: T82.838A Hemorrhage due to vascular prosthetic devices, implants and grafts, initial encounter (principal); J44.9 Chronic obstructive pulmonary disease, unspecified; E11.9 Type 2 diabetes mellitus without complications; F17.210 Nicotine dependence, cigarettes, uncomplicated
CPT/HCPCS: 99282

== ENCOUNTER 2025-03-25 09:31 | Outpatient (CLI) | payer MEDICARE, MEDICAID, SELFPAY ==
--- OUTSIDE RECORDS SUMMARY | 2025-03-25 09:37 | XMS_ITS ---
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 ID: [id number] [address] [place], [place], [id number] LOINC: 07976-3 Test Value Unit Reference Range Code Code [...] H=36.0 L PLATELETS 43 10^3uL L=100 H=400 80099-5 LOINC L RDW 16.1 % L=11.7 H=15.5 H %GRAN L=40.0 H=70.0 79919-4 LOINC %LYMPH L=20.0 H=45.0 736-9 LOINC %MONO L=2.0 H=10.0 37273-5 LOINC %EOS L=0.0 H=6.0 713-8 LOINC %BASO L=0.0 H=3.0 706-2 LOINC #NEUT L=1.9 H=7.6 32500-2 LOINC #LYMPH L=0.9 H=4.9 09366-5 LOINC #MONO L=0.1 H=0.9 56983-2 LOINC #EOS L=0.0 H=0.6 712-0 LOINC #BASO L=0.00 H=0.10 95780-8 LOINC #IM GRANS L=0.0 H=7.0 57373-7 LOINC %IM GRANS L=0.0 H=5.0 51202-8 LOINC %NRB L=0.0 H=0.2 97307-3 LOINC #NRB L=0.000 H=0.012 87603-5 LOINC MANUAL DIFF SEE BELOW A SEG [...] L=0 H=0 BLASTS 0 % L=0 H=0 83265-3 LOINC PANDA LYMPHS 0.00 % L=0.00 H=5.00 SMUDGE CELLS 0 % L=0 H=0 NRBC 0.0 % L=0.0 H=0.0 PLTS DECREASED NEUT # 0.7 10^3uL L=1.9 H=7.6 LL LYMPH # 1.2 10^3uL L=0.9 H=4.9 MONO # 0.0 10^3uL L=0.1 H=0.9 L EOS # 0.1 10^3uL L=0.0 H=0.6 712-0 LOINC BASO # 0.0 10^3uL L=0.0 H=0.1 51473-4 LOINC RBC MORPH NOT INDICATED COMPREHENSIVE METABOLIC PANE L - Collect Date/Time: 01/08/2025 13:23 [facility] ID: [id number] [address] [place], [place], [id number] LOINC: 19767-7 Test Value Unit Reference Range Code Code [...] 2028-9 LOINC ANION GAP 10 L=10 H=20 90335-5 LOINC OSMOLALITY 288 mOs/kG L=280 H=296 19110-5 LOINC BUN/CREAT 13.3 3097-3 LOINC CALCIUM 8.9 mg/dL L=8.3 H=10.5 48392-1 LOINC AST 23 U/L L=15 H=46 1920-8 LOINC ALT 15 U/L L=9 H=72 1742-6 LOINC ALKALINE PHOS 61 U/L L=38 H=126 6768-6 LOINC TOTAL BILI 0.3 mg/dL L=0.2 H=1.3 1975-2 LOINC ALBUMIN 3.9 G/dL L=3.5 H=5.0 1751-7 LOINC TOTAL PROTEIN 7.6 g/L L=6.3 H=8.2 2885-2 LOINC A/G RATIO 1.1 71632-3 LOINC AGE 59 94515-4 LOINC eGFR NON-AFR 69 ml/min eGFR AFR AMER 83 ml/min Social History Type Status Start Date End Date Code Code Syst em Smoking History Unknown if ever smoked [id number] Sex Female Hospital Discharge Instructions Should you have any questions prior to discharge, please contact a member of your healthcare team. If you have left the hospital and have any questions, please contact your primary care physician. Reason For Referral No Data Found Plan of Treatment Picc Line Removal 03/27/2025 PICC Line Placement 03/27/2025 US Venous Right UE ([id number]) 03/27/2025 Picc Line Removal 03/27/2025 PICC Line Placement 03/27/2025 US Venous Right UE ([id number]) 03/27/2025 Picc Line Removal 03/27/2025 PICC Line Placement 03/27/2025 US Venous Right UE ([id number]) 03/27/2025 Encounters Encounter Diagnosis Start Date Code Code Sys tem Myelodysplastic syndrome, unspecified 01/08/2025 SNOMED-CT Personal Care Team Section Performer Name Performer Role Active Date Inactive LAURIE Hidalgo PCP - Primary care physician
--- OUTSIDE RECORDS SUMMARY | 2025-03-25 09:37 | XMS_ITS | Encounter Summary ---
Author Organization [facility] Address [address] [place] [id number] Care Team Providers Care Field Sales Executive Name Role Phone Reagan Fonseca MD Primary Care Provider [phone] Encounter Details Date Type Department Care Team (Late st Contact Info) Description 02/24/2019 Abstract SFL CONVERSION [address] [place] [address] , Generic Conversion, Social History Tobacco Use [...] on filedocumented in this encounter Care Teams Field Sales Executive Relationship Specialty Start Date End Date Reagan Fonseca MD [address] [place] [address] PCP - General FAMILY PRACTICE 01/26/25 documented as of this encounter
--- OUTSIDE RECORDS SUMMARY | 2025-03-25 09:37 | XMS_ITS | Clinical Summary ---
Author Organization [facility] Address [facility] [place] [address] Care Team Providers Care Radio Aerial Installer Name Role Phone Reagan Fonseca MD Primary Care Provider [phone] Allergies Active Allergy Reactions Criticality Noted Date [...] - 03/12/2025 5:58 PM CDT Hospital Encounter [facility] [address] [place] [address] Hansel Strickland MD Sheikh, MD Kory Alonso, MD Marcelle Discharge Disposition: Home or Self Care (Routine Discharge) 03/07/2025 Travel 01/26/2025 2:50 PM CDT - 01/26/2025 8:40 PM CDT Emergency [place] [facility] [place] [address] Bharat Young, Medical Problem Discharge Disposition: Home [...] from your doctor or pharmacy? Rarely 03/08/2025 [facility] Utilities Answer Date Recorded In the past 12 months has e [employer], [employer], or water [employer] threatened to shut off services in your [...] week 03/08/2025 How often do you attend mandaeism or druze serv ices? Never 03/08/2025 Do you belong to any clubs o r organizations such as mandaeism groups, unions, fraternal or athletic groups, or [...] heating? Patient declined 03/08/2025 [facility] Occupational Stress Questionnaire [...] any time in the past 12 m [facility], were you homeless or living in a snf (including now)? No 03/08/2025 Comments No Sex [...] SERUM Routine 03/07/2025 11:4 1 PM CDT [id number] ACT W/RFLX INHIBITOR Routine 03/07/2025 11:41 PM [...] 70 - 109 03/12/2025 4:08 PM CDT [facility] 03/12/2025 4:04 PM CDT Marcelle Rich MD POCT ORDERABLES - DEVICE Final R esult [facility] [address] [place] [address], [id number] * TRANSFUSE PLATELET PHERESIS (03/12/2025 1:41 PM CDT) Only the most recent of4 resultswithin the time period is included. Phani Sarmiento MD NURSING TREATMENT ORDERAB LES - BLOOD ADMIN Final Result * TYPE & SCREEN (03/12/2025 11:15 AM CDT) Only the most recent of3 resultswithin the time period is included. UNITS ORDERED 1 03/12/2025 11:01 AM CDT [facility] ABO/RH A POSITIVE 03/12/2025 1:38 PM CDT [facility] ANTIBODY SCREEN NEGATIVE 1:38 PM CDT [facility] SAMPLE EXPIRATION 03/15/2025,2359 03/12/2025 12:56 PM CDT [facility] BLOOD UNIT NUMBER [id number] 03/12/2025 1:38 PM CDT [facility] PRODUCT: PC LEUKOPOOR 03/12/2025 1:38 PM CDT [facility] UNIT DIVISION 00 03/12/2025 1:38 PM CDT [facility] BLOOD UNIT STATUS TRANSFUSED,FINAL 03/13/2025 6:44 AM CDT [facility] ISSUE DATE/TIME [id number] 025 6:44 AM CDT [facility] PRODUCT CODE [id number] 03/13/2025 6:44 AM CDT [facility] ABO/RH Unit A POS 03/13/2025 6:44 AM CDT [facility] ABO/RH UNIT ISBT CODE 6200 03/13/2025 6:44 AM CDT [facility] BLOOD UNIT EXPIRATION DATE [id number] 03/13/2025 6:44 AM CDT [facility] TRANSFUSION STATUS OK TO TRANSFUSE 03/12/2025 1:38 PM CDT [facility] CROSSMATCH COMPATIBLE-EXM 03/12/2025 1:38 PM CDT [facility] 03/12/2025 11:1 5 AM CDT Marcelle Rich MD BLOOD BANK TEST ORDERABLES Final Result [facility] [address] [place] [address], [id number] * ORDER PLATELET PHERESIS, 1 Units (03/12/2025 6:46 AM CDT) Only the most recent of3 resultswithin the time period is included. UNITS ORDERED 1 03/12/2025 6:46 AM CDT [facility] BLOOD UNIT NUMBER [id number] 03/12/2025 9:57 AM CDT [facility] PRODUCT: PLT PHERESIS LEUKORED 7D BAG 2 03/12/2025 9:57 AM CDT [facility] UNIT DIVISION 00 03/12/2025 9:57 AM CDT [facility] BLOOD UNIT STATUS TRANSFUSED,FINAL 03/13/2025 6:44 AM CDT [facility] ISSUE DATE/TIME [id number] 025 6:44 AM CDT [facility] PRODUCT CODE [id number] 03/13/2025 6:44 AM CDT [facility] ABO/RH Unit AB POS 03/13/2025 6:44 AM CDT [facility] ABO/RH UNIT ISBT CODE 8400 03/13/2025 6:44 AM CDT [facility] BLOOD UNIT EXPIRATION DATE [id number] 03/13/2025 6:44 AM CDT [facility] TRANSFUSION STATUS OK TO TRANSFUSE 03/12/2025 9:57 AM CDT [facility] 03/12/2025 6:46 AM CDT Phani Sarmiento MD BLOOD BANK PRODUCT ORDERA BLES Final Result [facility] [address] [place] [address], [id number] * (ABNORMAL) CBC W/DIFF AUTOMATED (03/12/2025 3:50 AM CDT) Only the most recent of7 resultswithin the time period is included. WBC 0.54(L) 4.00 - 10.80 x10'3/uL 03/12/2025 4:53 AM CDT [facility] RBC 2.40(L) 4.10 - 5.40 x10'6/uL 03/12/2025 4:53 AM CDT [facility] HGB 7.1(L) 12.0 - 16.0 G/DL 03/12/2025 4:53 AM CDT [facility] HCT 21.7(L) 36.0 - 47.0 % 03/12/2025 4:53 AM CDT [facility] MCV 90.4 78.0 - 100.0 FL 03/12/2025 4:53 AM CDT [facility] MCH 29.6 27.0 - 31.0 PG 03/12/2025 4:53 AM CDT [facility] MCHC 32.7(L) 33.0 - 36.0 G/DL 03/12/2025 4:53 AM CDT [facility] RDW 17.0(H) 11.5 - 14.5 % 03/12/2025 4:53 AM CDT [facility] PLT 9(LL) 150 - 350 x10'3/uL 03/12/2025 6:54 AM CDT [facility] Comment: This result has been called to [id number] by [id number] on 03/12/2025 05:55:00, and has been read back. DIFFERENTIAL TYPE MANUAL DIFFERENTIAL 03/12/2025 6:57 AM CDT [facility] NRBC % 2.0 % 03/12/2025 6:57 AM CDT [facility] SEG NEUTROPHILS 29 % 6:57 AM CDT [facility] LYMPHOCYTES 63 % 03/12/2025 6:57 AM CDT [facility] MONOCYTES 2 % 03/12/2025 6:57 AM CDT [facility] EOSINOPHILS 2 % 03/12/2025 6:57 AM CDT [facility] BASOPHILS 0 % 03/12/2025 6:57 AM CDT [facility] BANDS 2 % 03/12/2025 6:57 AM CDT [facility] ABS. NEUTROPHILS 0.17(LL) 1.60 - 8.30 x10'3/uL 03/12/2025 6:57 AM CDT [facility] Comment: This patient has had a critical value result for this test called within the past 3 months. ABS. LYMPHOCYTES 0.35(L) 0.80 - 4.70 x10'3/uL 03/12/2025 6:57 AM CDT [facility] ABS. MONOCYTES 0.01 0.00 - 1.50 x10'3/uL 03/12/2025 6:57 AM CDT [facility] ABS. EOSINOPHILS 0.01 0.00 - 0.40 x10'3/uL 03/12/2025 6:57 AM CDT [facility] ABS. BASOPHILS 0.00 0.00 - 0.20 x10'3/uL 03/12/2025 6:57 AM CDT [facility] ABS. NUCLEATED RBC'S 0.01 0.00 - 0.01 x10'3/uL 03/12/2025 6:57 AM CDT [facility] RBC MORPHOLOGY SLIDE REVIEWED 2024 6:57 AM CDT [facility] ANISO SLIGHT 03/12/2025 6:57 AM CDT [facility] POIKLO SLIGHT 03/12/2025 6:57 AM CDT [facility] OVALOCYTES PRESENT 03/12/2025 6:57 AM CDT [facility] TEAR DROP PRESENT 03/12/2025 6:57 AM CDT [facility] JOVANNA PRESENT 03/12/2025 6:57 AM CDT [facility] PLT EST. DECREASED 03/12/2025 6:57 AM CDT [facility] 03/12/2025 3:50 AM CDT us Marcelle Rich MD LABORATORY Final Result [facility] [address] [place] [address], [id number] * (ABNORMAL) BASIC METABOLIC PANEL (03/11/2025 9:42 AM CDT) Only the most recent of5 resultswithin the time period is included. SODIUM S/P/B 139 136 - 145 MMOL/L 03/11/2025 10:19 AM CDT [facility] POTASSIUM S/P/B 3.4(L) 3.5 - 5.1 MMOL/L 03/11/2025 10:19 AM CDT [facility] CHLORIDE S/P/B 106 97 - 115 MMOL/L 03/11/2025 10:19 AM T [facility] CO2 27.1 21.0 - 32.0 MMOL/L 03/11/2025 10:19 AM T [facility] GLUCOSE 243(H) 74 - 106 MG/DL 03/11/2025 10:19 AM T [facility] BUN 15 7 - 18 MG/DL 03/11/2025 10:19 AM T [facility] CREATININE S/P/B 0.90 0.55 - 1.02 MG/DL 03/11/2025 10:19 AM T [facility] CALCIUM S/P/B 8.6 8.5 - 10.1 MG/DL 03/11/2025 10:19 AM [facility] ANION GAP 5.9 2.0 - 10.0 MMOL/L 03/11/2025 10:19 AM T [facility] OSMOLALITY (CALC) 297 MOSM/KG 025 10:19 AM [facility] Comment:REFERENCE RANGE NOT ESTABLISHED GFR ESTIMATE 74(L) >90 ML/MIN/1. 73 M2 03/11/2025 10:19 AM T [facility] GFR NOTES GFR REFERENCE S: 03/11/2025 10:19 AM T [facility] Comment: THE ESTIMATED GFR IS [...] MD LABORATORY Final Result Performing Organization Address [facility] de Phone Number [facility] [address] [place] [address], [id number] * PHOSPHORUS, INORGANIC PHOSPHATE (03/10/2025 2:41 AM CDT) PHOSPHORUS 3.5 2.5 - 4.9 MG/DL 03/10/2025 3:34 AM CDT [facility] 03/10/2025 2:41 AM CDT us Marcelle Rich MD LABORATORY Final Result Performing Organization Address [facility] de Phone Number [facility] [address] [place] [address], [place] [phone] * MAGNESIUM (03/10/2025 2:41 AM CDT) MAGNESIUM 1.9 1.6 - 2.6 MG/DL 03/10/2025 3:34 AM CDT [facility] 03/10/2025 2:41 AM CDT us Marcelle Rich MD LABORATORY Final Result Performing Organization Address [facility] de Phone Number [facility] [address] [place] [address], [phone] * (ABNORMAL) Blood gas, venous (03/09/2025 5:27 PM CDT) PH VENOUS 7.39 7.32 - 7.42 03/09/2025 5:37 PM CDT [facility] PCO2 VENOUS 47.7 41.0 - 51.0 MMHG 03/09/2025 5:37 PM CDT [facility] PO2 VENOUS 31.9 25.0 - 40.0 MM HG 03/09/2025 5:37 PM CDT [facility] BICARB VENOUS 28.0 24 - 28 MMOL/L 03/09/2025 5:37 PM CDT [facility] TOTAL CO2 VENOUS 29.5(H) 25.0 - 29.0 MMOL/L 03/09/2025 5:37 PM CDT [facility] BASE EXCESS VENOUS 3.1(H) 0 - 2 MMOL/L 03/09/2025 5:37 PM CDT [facility] O2 SAT VENOUS 56 <75 % 03/09/2025 5:37 PM CDT [facility] 03/09/2025 5:27 PM CDT Marcelle Rich MD LABORATORY Final Result [facility] [address] [place] [address], [id number] * XR CHEST PORTABLE (03/08/2025 11:08 AM CDT) Anatomical Region Laterality Modality Chest Radiographic Aishwarya ging 03/08/2025 12:2 3 PM CDT Impressions 03/08/2025 12:24 PM CDT IMPRESSION: 1. Mild pulmonary vascular congestion. 2. No focal consolidation or pneumothorax. Ordered By: MARCELLE RICH Interpreted By: Bk Perez MD, 03/08/2025 12:23 PM Narrative 03/08/2025 12:24 PM CDT [facility] [address] [place], [place] [address] PROCEDURE: XR CHEST PORTABLE. 03/08/2025 11:06 AM. [...] Procedure Note Bk Perez MD - 03/08/2025 [facility] [address] [place], [place] [address] PROCEDURE: XR CHEST PORTABLE. 03/08/2025 11:06 AM. [...] CDT) TEST NAME: LEUKEMIA LYMPHOMA EVAL TEST [id number] 03/08/2025 1:46 PM CDT [facility] SPECIMEN TYPE PERIPHERAL BLOOD EDTA, ROOM TEMP 03/08/2025 1:46 PM CDT [facility] TEST RESULT: Flexitest 1 03/12/2025 11:42 AM CDT [employer] REGGIE VÁSQUEZ Comment: Flexitest 1 CLINICAL INFORMATION: [...] staining intensity, forward scatter and side scatter. [place] A - Granulocytes Marker Percentage CD2 1 CD3 0 CD4 0 CD5 0 CD7 1 CD8 0 CD10 87 CD11c 96 CD13 91 CD19 0 CD19+CD5+ 0 CD20 0 CD23 1 CD33 3 CD34 0 CD38 2 CD45 100 CD56+CD3- 2 CD64 0 CD117 0 HLA_DR 2 [place] CD19+ 0 Lambda CD19+ 0 K/L Ratio NA [place] B - Lymphocytes Marker Percentage CD2 66 CD3 62 CD4 42 CD5 60 CD7 53 CD8 19 CD10 2 CD11c 6 CD13 0 CD19 22 CD19+CD5+ 0 CD20 22 CD23 14 CD33 0 CD34 0 CD38 46 CD45 100 CD56+CD3- 13 CD64 0 CD117 0 HLA_DR 25 [place] CD19+ 10 Lambda CD19+ 9 K/L Ratio 1.11 This test was developed and its analytical performance characteristics have been determined by [facility], [place], [place]. It has not been cleared or approved by the U.S. Food and Drug Administration. This assay has been validated pursuant to the CLIA regulations and is used for clinical purposes. NUMBER OF MARKERS: 22 Test Performed by [facility], [facility], [address] [place], [place] Noe Hernandez M.D., Ph.D., Director of Laboratories , [facility] [id number] 03/08/2025 11:0 7 AM CDT us Almaz Hollins MD LABORATORY Final Result Performing Organization Address City/[facility] Co de Phone Number [employer] [address] , [place] [phone] [facility] [address] [place] [address], [place] [phone] * FLOW CYTOMETRY, PERIPHERAL BLD (03/08/2025 11:07 AM CDT) FLOW CYTOMETRY TEST SENT TO [facility]. RESULTS WILL DISPLAY REF LAB TEST RESULT UNDER MISC TAB WHEN FINALIZED. 03/08/2025 12:12 PM CDT [facility] 03/08/2025 11:0 7 AM CDT us Almaz Hollins MD LABORATORY Final Result Performing Organization Address [facility] Co de Phone Number [facility] [address] [place] [address], [place] [phone] * MISCELLANEOUS LAB TEST (03/08/2025 11:07 AM CDT) TEST NAME: HLA TYPING FOR PLATELETS, ALLOIMMUNIZATION 03/08/2025 8:04 AM CDT [facility] TEST RESULT: SEE BLOOD BANK FOR TESTING RESULTS 03/11/2025 7:37 AM CDT [facility] 03/08/2025 11:0 7 AM CDT us Almaz Hollins MD LABORATORY Final Result Performing Organization Address [facility] de Phone Number [facility] [address] [place] [address], [phone] * (ABNORMAL) RETICULOCYTE CT, AUTO (03/07/2025 11:43 PM CDT) Pathologist [facility] % RETICULOCYTE COUNT 0.3(L) 0.6 - 2.3 % 03/08/2025 1:02 AM CDT [facility] ABSOLUTE RETICULOCYTE 0.01(L) 0.02 - 0.10 x10'6/uL 03/08/2025 1:02 AM CDT [facility] IMMATURE RETIC FRACTION 5.1 3.0 - 15.9 % 03/08/2025 1:02 AM CDT [facility] RETIC HGB 37.7(H) 28.0 - 35.0 PG 03/08/2025 1:02 AM CDT [facility] 03/07/2025 11:4 3 PM CDT Wesly Steve MD LABORATORY Final Result Performing Organization Address [facility] de Phone Number [facility] [address] [place] [address], [phone] * (ABNORMAL) EBV (RHONDA CAMP VIRUS) AB PANEL COMPREHENSIVE (INCL. EARLY AG D AB) (03/07/2025 11:41 PM CDT) [facility] EBV EARLY ANTIGEN-D AB IGG 71.00(H) <9.00 U/mL 03/12/2025 7:03 PM CDT [employer] DAIJA COX Comment: The potential exists for cross-reactivity with HIV (Human Immunodeficiency Virus) which could cause a false positive EBV-EA result. U/mL Interpretation <9.00 Negative 9.00 - 10.99 Equivocal >10.99 Positive EBV VCA IGM <36.00 <36.00 U/mL 03/12/2025 7:03 PM CDT [employer] DAIJA COX Comment: U/mL Interpretation <36.00 Negative 36.00 - 43.99 Equivocal >43.99 Positive RHONDA BAR NUCLEAR ANTIGEN IGG 69.90(H) <18.00 U/mL 03/12/2025 7:03 PM CDT [employer] DAIJA COX Comment: U/mL Interpretation <18.00 Negative 18.00 - 21.99 Equivocal >21.99 Positive EBV VCA IGG 262.00(H) <18.00 U/mL 03/12/2025 7:03 PM CDT [employer] DAIJA COX Comment: U/mL Interpretation <18.00 Negative 18.00 - 21.99 Equivocal >21.99 Positive Test Performed by [facility], [facility], [address] [place] [address] Noe Hernandez M.D., Ph.D., Director of Laboratories , [facility] [id number] 03/07/2025 11:4 1 PM CDT Wesly Steve MD LABORATORY Final Result [facility] [address], * [id number] ACT W/RFLX INHIBITOR (03/07/2025 11:41 PM CDT) [id number] ACTIVITY 0.79 0.68 - 1.63 IU/mL 03/10/2025 3:29 PM CDT [employer] DAIJA COX Comment: Activity levels below 0.10 IU/mL are seen in acquired and hereditary thrombotic thrombocytopenic purpura (TTP). Not all patients with TTP will exhibit low levels of ZLFULK20 activity with this assay, i.e., post bone marrow transplantation, drug-induced TTP, and mutations of ZQEKGK22 at the CUB domain. Recent plasma exchange or immunosuppressive therapy may raise the observed activity levels. Mild decreases in SYGAQZ89 activity are seen in a wide variety of conditions including metastatic cancer, neonates, serious infections and cirrhosis of the liver. For more information on this test, go to http://education.Reebonz/faq/EZB105 Test Performed by [facility], [facility], [address] [place] [address] Noe Hernandez M.D., Ph.D., Director of Laboratories , [facility] [id number] 03/07/2025 11:4 1 PM CDT Wesly Steve MD LABORATORY Final Result Performing Organization Address [facility]/ZIP Co de Phone Number [employer] [place] [id number] [place], [place] , [place] [phone] * (ABNORMAL) PROCALCITONIN (PCT) (03/07/2025 11:41 PM CDT) PROCALCITONIN 2.85(H) 0.00 - 0.49 NG/ML 03/08/2025 1:14 PM CDT [facility] Comment: VALUES ABOVE 2.00 NG/ML ARE HIGHLY SUGGESTIVE OF SEPSIS OR OTHER SEVERE BACTERIAL INFECTION. 03/07/2025 11:4 1 PM CDT us Wesly Steve MD LABORATORY Final Result [facility] [address] [place] [address], [place] [phone] * (ABNORMAL) TSH W/REFLEX (03/07/2025 11:41 PM CDT) TSH 0.250(L) 0.358 - 3.740 uIU/ML 03/08/2025 12:47 AM CDT [facility] Comment: ASSAY PERFORMED BY CHEMILUMINESCENCE METHODOLOGY USING [employer]. PATIENT RESULTS DETERMINED BY ASSAYS USING DIFFERENT MANUFACTURERS FOR METHODS MAY NOT BE COMPARABLE. 03/07/2025 11:4 1 PM CDT us Wesly Steve MD LABORATORY Final Result Performing Organization Address City/[facility]/ZIP Co de Phone Number [facility] [address] [place] [address], [id number] * CMV DNA QUANT REAL TIME PCR (03/07/2025 11:41 PM CDT) Pathologist [facility] SPECIMEN SOURCE EDTA PLASMA 03/08/20 8:43 AM CDT [facility] CMV DNA QN PCR (BLD) Not Detected IU/mL 03/10/2025 6:53 PM CDT [facility] CMV DNA QUANT PCR (BLD) Not Detected log IU/mL 03/10/2025 6:53 PM CDT [facility] Comment: REFERENCE RANGE: NOT DETECTED For additional information, please refer to http://education.WebGen Systems.CoachBase/faq/CMVandEBVPCR (This link is being provided for informational/ educational purposes only.) Test Performed by [facility], [facility] [place], [address] [place] [address] Noe Hernandez M.D., Ph.D., Director of Laboratories , [facility] [id number] 03/07/2025 11:4 1 PM CDT us Wesly Steve MD LABORATORY Final Result Performing Organization Address City/[facility]/ZIP Co de Phone Number [facility] [address], [place] [phone] [facility] [address] [place] [address], [place] [phone] * (ABNORMAL) IRON SATURATION PANEL (FE,IBC,%SAT) (03/07/2025 11:41 PM CDT) Pathologist [facility] IRON 53 50 - 170 MCG/DL 03/08/2025 12:47 AM CDT [facility] IRON BINDING CAPACITY 202(L) 250 - 450 MCG/DL 03/08/2025 12:47 AM CDT [facility] IRON SATURATION 26 % 12:47 AM CDT [facility] Comment:REFERENCE RANGE NOT ESTABLISHED 03/07/2025 11:4 1 PM CDT us Wesly Steve MD LABORATORY Final Result [facility] [address] [place] [address], [id number] * VITAMIN B-12 (03/07/2025 11:41 PM CDT) Pathologist [facility] VITAMIN B12 S/P/B 511 193 - 986 PG/ML 03/08/2025 12:35 AM CDT [facility] 03/07/2025 11:4 1 PM CDT us Wesly Steve MD LABORATORY Final Result [facility] [address] [place] [address], [id number] * SED RATE, ERYTHROCYTE (ESR,WSR) (03/07/2025 11:41 PM CDT) Pathologist [facility] ESR 15 0 - 20 MM/HR 03/08/2025 12:03 AM CDT [facility] 03/07/2025 11:4 1 PM CDT Wesly Steve MD LABORATORY Final Result [facility] [address] [place] [address], [id number] * (ABNORMAL) COMPREHENSIVE METABOLIC PANEL (03/07/2025 11:41 PM CDT) SODIUM S/P/B 137 136 - 145 MMOL/L 03/08/2025 12:47 AM CDT [facility] POTASSIUM S/P/B 3.4(L) 3.5 - 5.1 MMOL/L 03/08/2025 12:47 AM CDT [facility] CHLORIDE S/P/B 107 97 - 115 MMOL/L 03/08/2025 12:47 AM CDT [facility] CO2 24.5 21.0 - 32.0 MMOL/L 03/08/2025 12:47 AM CDT [facility] GLUCOSE 261(H) 74 - 106 MG/DL 03/08/2025 12:47 AM CDT [facility] BUN 8 7 - 18 MG/DL 03/08/2025 12:47 AM CDT [facility] CREATININE S/P/B 0.80 0.55 - 1.02 MG/DL 03/08/2025 12:47 AM CDT [facility] CALCIUM S/P/B 8.0(L) 8.5 - 10.1 MG/DL 03/08/2025 12:47 AM CDT [facility] BILIRUBIN TOTAL S/P/B 0.4 0.2 - 1.0 MG/DL 03/08/2025 12:47 AM CDT [facility] ALKALINE PHOSPHATASE S/P/B 71 46 - 118 U/L 03/08/2025 12:47 AM CDT [facility] AST 43(H) 15 - 37 U/L 03/08/2025 12:47 AM CDT [facility] ALT 46 13 - 56 U/L 03/08/2025 12:47 AM T [facility] TOTAL PROTEIN S/P/B 6.5 6.4 - 8.2 G/DL 03/08/2025 12:47 AM CDT [facility] ALBUMIN S/P/B 2.9(L) 3.4 - 5.0 G/DL 03/08/2025 12:47 AM CDT [facility] ANION GAP 5.5 2.0 - 10.0 MMOL/L 03/08/2025 12:47 AM T [facility] OSMOLALITY (CALC) 291 MOSM/KG 025 12:47 AM T [facility] Comment:REFERENCE RANGE NOT ESTABLISHED GFR ESTIMATE 85(L) >90 ML/MIN/1. 73 M2 03/08/2025 12:47 AM T [facility] GFR NOTES GFR REFERENCE S: 03/08/2025 12:47 AM [facility] Comment: THE ESTIMATED GFR IS [...] us Wesly Steve MD LABORATORY Final Result [facility] [address] [place] [address], [place] [phone] * (ABNORMAL) LDH, LACTATE DEHYDROGENASE (03/07/2025 11:41 PM CDT) Pathologist [facility] LDH 249(H) 84 - 246 UNITS/L 03/08/2025 12:47 AM CDT [facility] 03/07/2025 11:4 1 PM CDT Wesly Steve MD LABORATORY Final Result [facility] [address] [place] [address], [id number] * (ABNORMAL) DIC PANEL (03/07/2025 11:41 PM CDT) Pathologist [facility] PROTIME 12.1 9.4 - 12.5 SEC 03/08/2025 12:11 AM CDT [facility] INR 1.1 0.8 - 1.1 03/08/2025 12:11 AM CDT [facility] PTT 27.3 25.1 - 36.5 SEC 03/08/2025 12:12 AM CDT [facility] FIBRINOGEN 330 200 - 393 MG/DL 03/08/2025 12:10 AM CDT [facility] D-DIMER 932(H) 0 - 500 ng{FEU}/m L 03/08/2025 12:11 AM CDT [facility] EXCLUSION STATEMENT 03/08/2025 12:11 AM CDT [facility] Comment: D-Dimer values less than or [...] - 350 x10'3/uL 03/07/2025 11:58 PM CDT [facility] 03/07/2025 11:4 1 PM CDT us Wesly Steve MD LABORATORY Final Result Performing Organization Address City/[facility]/ZIP Co de Phone Number [facility] [address] [place] [address], [place] [phone] * (ABNORMAL) C-REACTIVE PROTEIN (03/07/2025 11:41 PM CDT) C-REACTIVE PROTEIN 2.96(H) <0.80 mg/dL 03/08/2025 12:47 AM CDT [facility] 03/07/2025 11:4 1 PM CDT us Wesly Steve MD LABORATORY Final Result Performing Organization Address [facility] Co de Phone Number [facility] [address] [place] [address], [place] [phone] * BLOOD SMEAR PERIPHERAL INTERP PHYS W/WRIT REPORT (03/07/2025 11:41 PM CDT) CBC PATHOLOGIST COMMENT SENT TO PATHOLOGIST FOR REVIEW 03/08/2025 3:04 PM CDT [facility] 03/07/2025 11:4 1 PM CDT us Wesly Steve MD LABORATORY Final Result Performing Organization Address [facility]/ZIP Co de Phone Number [facility] [address] [place] [address], [place] [phone] * FOLIC ACID SERUM (03/07/2025 11:41 PM CDT) FOLATE 5.2 3.1 - 17.5 NG/ML 03/08/2025 12:35 AM CDT [facility] 03/07/2025 11:4 1 PM CDT Wesly Steve MD LABORATORY Final Result Performing Organization Address [facility] Co de Phone Number [facility] [address] [place] [address], [phone] * (ABNORMAL) THYROXINE, FREE (FT4) (03/07/2025 11:41 PM CDT) FREE T4 1.55(H) 0.76 - 1.46 NG/DL 03/08/2025 1:05 AM CDT [facility] 03/07/2025 11:4 1 PM CDT Wesly Steve MD LABORATORY Final Result Performing Organization Address [facility] de Phone Number [facility] [address] [place] [address], [place] [phone] * Pathology (03/07/2025 12:00 AM CDT) PATHOLOGY [facility] Department of Laboratory Medicine [address] [place] [address] , extension [phone] Pathology Report Peripheral Smear Report Name: IVETH BOOGIE Specimen #: [id number] Age: 6 1965 (Age: 60) Location: [facility] Sex: F Procedure Date: 03/07/2025 Hospital #: [id number] Date Received: 03/08/2025 Date Reported: 03/08/2025 Provider: [...] 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 [id number] testing is pending at the time of [...] Interpretation and sign out were performed at [address], [address] [place] [address]. [facility] 03/07/2025 03/08/2025 7:5 2 AM CDT Comment:Peripheral blood us Wesly Steve MD PATHOLOGY/CYTOLOGY ORDERABLES F inal Result [facility] [address] [place] [address], [phone] * PROTIME/INR, VENOUS (01/26/2025 3:25 PM CDT) PROTIME 11.9 9.4 - 12.5 SEC 01/26/2025 3:40 PM CDT [facility] INR 1.0 0.8 - 1.0 01/26/2025 3:40 PM CDT [facility] 01/26/2025 3:25 PM CDT Bharat Young DO LABORATORY Final Result [facility] [address] [place] [address], [place] [phone] from Last 3 Months Insurance MEDICAID MEDICARE Advance Directives * Full Code (Latest Code Status on File) Date Activated Date Inactivated Comments 03/07/2025 10:49 PM 03/12/2025 8:04 PM Care Teams Radio Aerial Installer Relationship Specialty Start Date End Date Reagan Fonseca MD [address] [place] [address] PCP - General FAMILY PRACTICE 01/26/25
--- OUTSIDE RECORDS SUMMARY | 2025-03-25 09:37 | XMS_ITS | Encounter Summary ---
Author Organization [facility] Address [address] [place] [address] Care Team Providers Care Lumber Planer Name Role Phone Reagan Fonseca MD Primary Care Provider [phone] Encounter Details Date Type Department Care Team (Late st Contact Info) Description 12/03/2017 Abstract [facility] CONVERSION [address] [place] [address] , Generic Conversion, Social History Tobacco Use [...] on filedocumented in this encounter Care Teams Lumber Planer Relationship Specialty Start Date End Date Reagan Fonseca MD [address] [place] [address] PCP - General FAMILY PRACTICE 01/26/25 documented as of this encounter
--- OUTSIDE RECORDS SUMMARY | 2025-03-25 09:38 | XMS_ITS ---
Author Organization Unknown Address [address] [place] [phone] Phone Care Team Providers Care Senior Drafter Name Role Phone PIPPA GREGORIONISHA Attending Unavailable JOHAN SULLIVAN Primary Unavailable Immunization Immunization Date Status Additional Notes Code Code System Tdap 03/26/2021 Completed 115 CVX Social History Type Status Start Date End Date Code Code Syst em Smoking History Unknown if ever smoked [address] Sex Female Vital Signs Vital Sign Value Unit Giles Value Giles Unit Date/Time Recent/Initial? Code Code System Body Mass Index 34.97 kg/m2 02/04/2025 09:56 Initial 78646 -5 [facility] Systolic Blood Pressure 168 mm[Hg] 02/04/2025 09:53 Initial 8480- 6 LOINC Diastolic Blood Pressure 73 mm[Hg] 02/04/2025 09:53 Initial 8462- 4 INC Body Surface Area 2.24 m2 02/04/2025 09:56 Initial 3140- 1 LOINC Height 172.720 0 cm 68.00 in 02/04/2025 09:56 Initial 8302- 2 LOINC O2 Saturation 100 % 2024 09:53 Initial 92686 -5 [facility] Pulse 99.0 /min 02/04/2025 09:53 Initial 8867- 4 LOINC Respiration 22 /min 02/05/20 09:53 Initial 9279- 1 LOINC Temperature 36.3 Freda 97.3 F 02/05/20 09:53 Initial 8310- 5 LOINC Weight 104.33 kg 230.00 lbs 02/04/2025 09:56 Initial 57096 -7 INC Hospital Discharge Instructions Should you have any questions prior to discharge, please contact a member of your healthcare team. If you have left the hospital and have any questions, please contact your primary care physician. Reason For Referral No Data Found Plan of Treatment Picc Line Removal 03/27/2025 PICC Line Placement 03/27/2025 US Venous Right UE ([id number]) 03/27/2025 Picc Line Removal 03/27/2025 PICC Line Placement 03/27/2025 US Venous Right UE ([id number]) 03/27/2025 Picc Line Removal 03/27/2025 PICC Line Placement 03/27/2025 US Venous Right UE ([id number]) 03/27/2025 Encounters Encounter Diagnosis Start Date Code Code Sys tem Myelodysplastic syndrome, unspecified 02/04/2025 SNOMED-CT Personal Care Team Section Performer Name Performer Role Active Date Inactive LAURIE Hidalgo PCP - Primary care physician
--- OUTSIDE RECORDS SUMMARY | 2025-03-25 09:39 | XMS_ITS ---
Author Organization Unknown Address [address] [place] [phone] Phone Care Team Providers Care Water Quality Assistant Name Role Phone JOHAN SULLIVAN Attending Unavailable Immunization Immunization Date Status Additional Notes Code Code System Tdap 03/26/2021 Completed 115 CVX Results US GALLBLADDER - Completed: 12/25/2024 12:00 LOINC: \TM00\\12PI\\DRAo\\BM09\ \MRHo\ [address] [address] ---------NAME--------- NUMBER SEX AGE ADMIT DISC. XRAY# F/C TYPE CHUYITA TONY [id number] F 59 12/25/24 12/25/24 32639 MBJ O/P DATE OF : 1965 M/R# [id number] PH#: [phone] RM \MRHx\ LOCATION: TRANSCRIBED: 12/25/24 13:39 US GALLBLADDER [id number] COMPLETED:12/25/24 12:00 APC [id number] {REASON-US ABD: ABDOMINAL PAIN PHYSICIAN: JOHAN R [...] of gallstones or acute cholecystitis. Hepatic steatosis. 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 If you have left the hospital and have any questions, please contact your primary care physician. Reason For Referral No Data Found Plan of Treatment Picc Line Removal 03/27/2025 PICC Line Placement 03/27/2025 US Venous Right UE ([id number]) 03/27/2025 Picc Line Removal 03/27/2025 PICC Line Placement 03/27/2025 US Venous Right UE ([id number]) 03/27/2025 Picc Line Removal 03/27/2025 PICC Line Placement 03/27/2025 US Venous Right UE ([id number]) 03/27/2025 Encounters Encounter Diagnosis Start Date Code Code Sys tem Fatty (change of) liver, not elsewhere classified 04/2025 SNOMED-CT Personal Care Team Section Performer Name Performer Role Active Date Inactive LAURIE Hidalgo PCP - Primary care physician Imaging Narrative Notes [facility] 12/25/2024 13:42 [facility] [address] [place] [address] ---------NAME--------- NUMBER SEX AGE ADMIT DISC. XRAY# F/C TYPE CHUYITA TONY [id number] F 59 12/25/24 12/25/24 [id number] MB O/P DATE OF : 1965 M/R# [id number] #: [id number] LOCATION: TRANSCRIBED: 12/25/24 13:39 US GALLBLADDER [id number] COMPLETED:12/25/24 12:00 APC 31456 {REASON-US ABD: ABDOMINAL PAIN PHYSICIAN: JOHAN RADIOLOGY [...] of gallstones or acute cholecystitis. Hepatic steatosis. ND WATER CONTRACTOR Reviewed and Electronically Signed by: Ivan Acosta MD Signed Date: 12/25/24 13:39
[2025-03-25 09:46] VITALS: BP 156/59; PULSE 98; RESP 18; TEMP 36.5; O2SAT 99; BMI 31.7
[2025-03-25 09:48] LABS: Hematocrit 23.7 % (35.0-49.0); Hemoglobin 7.6 g/dL (12.0-15.0); Mean Corpuscular HGB Conc 32.1 g/dL (32-36); Mean Corpuscular Hemoglobin 29.2 pg (27.0-31.0); Mean Corpuscular Volume 91.2 fL (78.0-102.0); Platelet Count Result 194 K/mm3 (150-420); Red Blood Count 2.60 M/mm3 (4.20-5.40)
[2025-03-25 09:58] LABS: White Blood Count 0.8 K/mm3 (4.8-10.8)
[2025-03-25 09:59] LABS: Band Neutrophils Percent 0 % (0-6); Eosinophils Absolute Manual 0.01 K/mm3 (0.02-0.50); Eosinophils Percent Manual 2 % (1-6); Lymphocytes Absolute Manual 0.54 K/mm3 (1.1-4.5); Lymphocytes Percent Manual 68 % (18-44); Monocytes Absolute Manual 0.08 K/mm3 (0.1-0.90); Monocytes Percent Manual 10 % (3-9); Neutrophils Absolute Manual 0.16 K/mm3 (1.3-6.7); Neutrophils Percent Manual 20 % (46-73); Total Cells Counted 100
[2025-03-25 10:04] LABS: Alanine Aminotransferase 10 U/L (6-35); Albumin Level 3.3 g/dL (3.5-5.1); Alkaline Phosphatase 59 U/L (38-126); Anion Gap 1 mmol/L (4-12); Aspartate Amino Transferase 17 U/L (14-36); Bilirubin,Total 0.9 mg/dL (0.2-1.3); Blood Urea Nitrogen 6 mg/dL (7-17); Calcium 8.1 mg/dL (8.4-10.2); Carbon Dioxide 27 mmol/L (22-30); Chloride 104 mmol/L (98-107); Estimated CRCL calculation 90 ml/min; Estimated Glomerular Filt Rate > 60; Glucose 120 mg/dL (65-110); Osmolality Calculated 272 mOsm/kg (285-295); Potassium 3.5 mmol/L (3.4-5.0); Sodium 132 mmol/L (137-145); Total Protein 6.5 g/dL (6.3-8.2)
--- NOTE | 2025-03-25 10:06 | PC.NURSE ---
lab called , HBG 7.6, platelets 194, wbc 0.78
[2025-03-25] MEDS: ONDANSETRON IVPB (10:24)
[2025-03-25] MEDS: SODIUM CHLORIDE 0.9% IVPB ×2 (10:24→10:53)
[2025-03-25] MEDS: DECITABINE IVPB (10:53)
[2025-03-25 11:46] VITALS: BP 142/60; PULSE 98; RESP 20; TEMP 36.5; O2SAT 97
--- NOTE | 2025-03-25 11:47 | PC.NURSE ---
pt tolerating infusion without issue, ambulated to bathroom.
--- NOTE | 2025-03-25 12:15 | PC.NURSE ---
1210 pt assisted to personal car via wheelchair per RN
== END 2025-03-25 12:10 | disposition home or self-care (01) ==
PROVIDERS: PCP Family Medicine; Visit Provider Internal Medicine Hematology
DX: D46.21 Refractory anemia with excess of blasts 1 (principal)
CPT/HCPCS: 36415; 80053; 85025; 96365; 96413; J0894; J2405; J7050

== ENCOUNTER 2025-03-26 10:04 | Outpatient (CLI) | payer MEDICARE, SELFPAY ==
--- OUTSIDE RECORDS SUMMARY | 2025-03-26 10:14 | XMS_ITS ---
Author Organization Unknown Address [address] [place] [phone] Phone Care Team Providers Care Ship Unloader Name Role Phone PIPPA BURCIAGAWade Attending Unavailable JOHAN SULLIVAN Primary Unavailable Immunization Immunization Date Status Additional Notes Code Code System Tdap 03/26/2021 Completed 115 CVX Results CBC W/ DIFF - Collect Date/T sarah: 01/23/2025 14:13 [facility] ID: [id number] [address] [place], [place], [phone] LOINC: 88021-1 Test Value Unit Reference Range Code Code [...] H=36.0 L PLATELETS 32 10^3uL L=100 H=400 57142-0 LOINC L RDW 17.1 % L=11.7 H=15.5 H %GRAN L=40.0 H=70.0 97691-6 LOINC %LYMPH L=20.0 H=45.0 736-9 LOINC %MONO L=2.0 H=10.0 22721-8 LOINC %EOS L=0.0 H=6.0 713-8 LOINC %BASO L=0.0 H=3.0 706-2 LOINC #NEUT L=1.9 H=7.6 87328-2 LOINC CALLED TO: CHRISTOPH BillingsleyHONORIO AT: 1448 01/23/25 BY: SDK #LYMPH L=0.9 H=4.9 66618-7 LOINC #MONO L=0.1 H=0.9 66932-2 LOINC #EOS L=0.0 H=0.6 712-0 LOINC #BASO L=0.00 H=0.10 72020-4 LOINC #IM GRANS L=0.0 H=7.0 96790-8 LOINC %IM GRANS L=0.0 H=5.0 65540-4 LOINC %NRB L=0.0 H=0.2 74515-1 LOINC #NRB L=0.000 H=0.012 62599-9 LOINC MANUAL DIFF SEE BELOW A SEG [...] L=0 H=0 BLASTS 0 % L=0 H=0 98919-3 LOINC PANDA LYMPHS 10.00 % L=0.00 H=5.00 H SMUDGE CELLS 0 % L=0 H=0 NRBC 0.0 % L=0.0 H=0.0 PLTS DECREASED NEUT # 0.6 10^3uL L=1.9 H=7.6 LL LYMPH # 1.0 10^3uL L=0.9 H=4.9 MONO # 0.1 10^3uL L=0.1 H=0.9 EOS # 0.1 10^3uL L=0.0 H=0.6 712-0 LOINC BASO # 0.0 10^3uL L=0.0 H=0.1 99471-8 LOINC RBC MORPH NOT INDICATED COMPREHENSIVE METABOLIC PANE L - Collect Date/Time: 01/23/2025 14:13 [facility] ID: [id number] [address] [place], [place], [id number] LOINC: 89684-8 Test Value Unit Reference Range Code Code [...] 2028-9 LOINC ANION GAP 9 L=10 H=20 70724-1 LOINC L OSMOLALITY 291 mOs/kG L=280 H=296 16914-7 LOINC BUN/CREAT 13.8 3097-3 LOINC CALCIUM 8.7 mg/dL L=8.3 H=10.5 70982-3 LOINC AST 20 U/L L=15 H=46 1920-8 LOINC ALT 12 U/L L=9 H=72 1742-6 LOINC ALKALINE PHOS 71 U/L L=38 H=126 6768-6 LOINC TOTAL BILI 0.2 mg/dL L=0.2 H=1.3 1975-2 LOINC ALBUMIN 3.7 G/dL L=3.5 H=5.0 1751-7 LOINC TOTAL PROTEIN 6.8 g/L L=6.3 H=8.2 2885-2 LOINC A/G RATIO 1.2 25586-9 LOINC AGE 59 72808-0 LOINC eGFR NON-AFR 79 ml/min eGFR AFR AMER 96 ml/min BB ABO AND RH TYPE - Collect Date/Time: 01/23/2025 14:13 [facility] ID: [id number] [address] [place], [place], [id number] LOINC: 36860-0 Test Value Unit Reference Range Code Code System Flag ABO TYPE A 883-9 LOINC RH TYPE POSITIVE BB RETYPE ABO AND RH TYPE - Collect Date/Time: 01/23/2025 14:13 [facility] ID: [id number] [address] [place], [place], [phone] LOINC: 73630-6 Test Value Unit Reference Range Code Code System Flag ABO TYPE A 883-9 LOINC RH TYPE POSITIVE Social History Type Status Start Date End Date Code Code Syst em Smoking History Unknown if ever smoked [address] Sex Female Hospital Discharge Instructions Should you have any questions prior to discharge, please contact a member of your healthcare team. If you have left the hospital and have any questions, please contact your primary care physician. Reason For Referral No Data Found Plan of Treatment Picc Line Removal 03/27/2025 PICC Line Placement 03/27/2025 US Venous Right UE ([id number]) 03/27/2025 Picc Line Removal 03/27/2025 PICC Line Placement 03/27/2025 US Venous Right UE ([id number]) 03/27/2025 Picc Line Removal 03/27/2025 PICC Line Placement 03/27/2025 US Venous Right UE ([id number]) 03/27/2025 Encounters Encounter Diagnosis Start Date Code Code Sys tem Myelodysplastic syndrome, unspecified 01/23/2025 SNOMED-CT Personal Care Team Section Performer Name Performer Role Active Date Inactive LAURIE Hidalgo PCP - Primary care physician
--- OUTSIDE RECORDS SUMMARY | 2025-03-26 10:14 | XMS_ITS | Encounter Summary ---
Author Organization [facility] Address [address] [place] [address] Care Team Providers Care Photo Technician Name Role Phone Reagan Fonseca MD Primary Care Provider [phone] Encounter Details Date Type Department Care Team (Late st Contact Info) Description 02/24/2019 Abstract [facility]FL CONVERSION [address] [place] [address] , Generic Conversion, Social History Tobacco Use [...] on filedocumented in this encounter Care Teams Photo Technician Relationship Specialty Start Date End Date Reagan Fonseca MD [address] [place] [address] PCP - General FAMILY PRACTICE 01/26/25 documented as of this encounter
--- OUTSIDE RECORDS SUMMARY | 2025-03-26 10:14 | XMS_ITS ---
Author Organization Unknown Address [address] [place] [phone] Phone Care Team Providers Care Ink Grinder Name Role Phone JOHAN SULLIVAN Attending Unavailable Immunization Immunization Date Status Additional Notes Code Code System Tdap 03/26/2021 Completed 115 CVX Results CBC W/ DIFF - Collect Date/T sarah: 01/08/2025 13:23 [facility] ID: [id number] [address] [place] [address], [id number] LOINC: 25107-0 Test Value Unit Reference Range Code Code [...] H=36.0 L PLATELETS 43 10^3uL L=100 H=400 14276-7 LOINC L RDW 16.1 % L=11.7 H=15.5 H %GRAN L=40.0 H=70.0 80882-7 LOINC %LYMPH L=20.0 H=45.0 736-9 LOINC %MONO L=2.0 H=10.0 41232-7 LOINC %EOS L=0.0 H=6.0 713-8 LOINC %BASO L=0.0 H=3.0 706-2 LOINC #NEUT L=1.9 H=7.6 20835-3 LOINC #LYMPH L=0.9 H=4.9 39222-6 LOINC #MONO L=0.1 H=0.9 23019-4 LOINC #EOS L=0.0 H=0.6 712-0 LOINC #BASO L=0.00 H=0.10 28306-9 LOINC #IM GRANS L=0.0 H=7.0 87746-4 LOINC %IM GRANS L=0.0 H=5.0 36727-5 LOINC %NRB L=0.0 H=0.2 48758-5 LOINC #NRB L=0.000 H=0.012 14144-0 LOINC MANUAL DIFF SEE BELOW A SEG [...] L=0 H=0 BLASTS 0 % L=0 H=0 92668-6 LOINC PANDA LYMPHS 0.00 % L=0.00 H=5.00 SMUDGE CELLS 0 % L=0 H=0 NRBC 0.0 % L=0.0 H=0.0 PLTS DECREASED NEUT # 0.7 10^3uL L=1.9 H=7.6 LL LYMPH # 1.2 10^3uL L=0.9 H=4.9 MONO # 0.0 10^3uL L=0.1 H=0.9 L EOS # 0.1 10^3uL L=0.0 H=0.6 712-0 LOINC BASO # 0.0 10^3uL L=0.0 H=0.1 97284-6 LOINC RBC MORPH NOT INDICATED COMPREHENSIVE METABOLIC PANE L - Collect Date/Time: 01/08/2025 13:23 [facility] ID: [id number] [address] [place], [place], [phone] LOINC: 85415-1 Test Value Unit Reference Range Code Code [...] 2028-9 LOINC ANION GAP 10 L=10 H=20 95699-0 LOINC OSMOLALITY 288 mOs/kG L=280 H=296 70675-1 LOINC BUN/CREAT 13.3 3097-3 LOINC CALCIUM 8.9 mg/dL L=8.3 H=10.5 03728-2 LOINC AST 23 U/L L=15 H=46 1920-8 LOINC ALT 15 U/L L=9 H=72 1742-6 LOINC ALKALINE PHOS 61 U/L L=38 H=126 6768-6 LOINC TOTAL BILI 0.3 mg/dL L=0.2 H=1.3 1975-2 LOINC ALBUMIN 3.9 G/dL L=3.5 H=5.0 1751-7 LOINC TOTAL PROTEIN 7.6 g/L L=6.3 H=8.2 2885-2 LOINC A/G RATIO 1.1 25759-1 LOINC AGE 59 48663-8 LOINC eGFR NON-AFR 69 ml/min eGFR AFR AMER 83 ml/min Social History Type Status Start Date End Date Code Code Syst em Smoking History Unknown if ever smoked [address] Sex Female Hospital Discharge Instructions Should you have any questions prior to discharge, please contact a member of your healthcare team. If you have left the hospital and have any questions, please contact your primary care physician. Reason For Referral No Data Found Plan of Treatment Picc Line Removal 03/27/2025 PICC Line Placement 03/27/2025 US Venous Right UE ([id number]) 03/27/2025 Picc Line Removal 03/27/2025 PICC Line Placement 03/27/2025 US Venous Right UE ([id number]) 03/27/2025 Picc Line Removal 03/27/2025 PICC Line Placement 03/27/2025 US Venous Right UE ([id number]) 03/27/2025 Encounters Encounter Diagnosis Start Date Code Code Sys tem Myelodysplastic syndrome, unspecified 01/08/2025 SNOMED-CT Personal Care Team Section Performer Name Performer Role Active Date Inactive LAURIE Hidalgo PCP - Primary care physician
--- OUTSIDE RECORDS SUMMARY | 2025-03-26 10:14 | XMS_ITS | Encounter Summary ---
Author Organization [facility] Address [address] [place] [address] Care Team Providers Care Porcelain Slusher Name Role Phone Reagan Fonseca MD Primary Care Provider [phone] Encounter Details Date Type Department Care Team (Late st Contact Info) Description 12/03/2017 Abstract SJS CONVERSION [address] [place] [address] , Generic Conversion, Social History Tobacco Use [...] on filedocumented in this encounter Care Teams Porcelain Slusher Relationship Specialty Start Date End Date Reagan Fonseca MD [address] [place] [address] PCP - General FAMILY PRACTICE 01/26/25 documented as of this encounter
--- OUTSIDE RECORDS SUMMARY | 2025-03-26 10:14 | XMS_ITS | Clinical Summary ---
Author Organization [facility] Address [facility] [place] [address] Care Team Providers Care Licensed Funeral Director Name Role Phone Reagan Fonseca MD Primary Care Provider [phone] Allergies Active Allergy Reactions Criticality Noted Date [...] - 03/12/2025 5:58 PM CDT Hospital Encounter [facility] [address] [place] [address] Hansel Strickland MD Sheikh, MD Kory Alonso, MD Marcelle Discharge Disposition: Home or Self Care (Routine Discharge) 03/07/2025 Travel 01/26/2025 2:50 PM CDT - 01/26/2025 8:40 PM CDT Emergency [facility] [place] [address] Bharat Young, Medical Problem Discharge Disposition: Home [...] from your doctor or pharmacy? Rarely 03/08/2025 [facility] Utilities Answer Date Recorded In the past 12 months has e [employer], [employer], or water [employer] threatened to shut off services in your [...] week 03/08/2025 How often do you attend caodaism or latter day serv ices? Never 03/08/2025 Do you belong to any clubs o r organizations such as caodaism groups, unions, fraternal or athletic groups, or [...] medical care, and heating? Patient declined 03/08/2025 [facility] - Occupational Stress Questionnaire Answer [...] time in the past 12 m [facility], were you homeless or living in a skilled nursing (including now)? No 03/08/2025 Comments No Sex [...] SERUM Routine 03/07/2025 11:4 1 PM CDT [id number] ACT W/RFLX INHIBITOR Routine 03/07/2025 11:41 PM [...] 70 - 109 03/12/2025 4:08 PM CDT [facility] 03/12/2025 4:04 PM CDT Marcelle Rich MD POCT ORDERABLES - DEVICE Final R esult [facility] [address] [place] [address], [id number] * TRANSFUSE PLATELET PHERESIS (03/12/2025 1:41 PM CDT) Only the most recent of4 resultswithin the time period is included. Phani Sarmiento MD NURSING TREATMENT ORDERAB LES - BLOOD ADMIN Final Result * TYPE & SCREEN (03/12/2025 11:15 AM CDT) Only the most recent of3 resultswithin the time period is included. UNITS ORDERED 1 03/12/2025 11:01 AM CDT [facility] ABO/RH A POSITIVE 03/12/2025 1:38 PM CDT [facility] ANTIBODY SCREEN NEGATIVE 1:38 PM CDT [facility] SAMPLE EXPIRATION 03/15/2025,2359 03/12/2025 12:56 PM CDT [facility] BLOOD UNIT NUMBER [id number] 03/12/2025 1:38 PM CDT [facility] PRODUCT: PC LEUKOPOOR 03/12/2025 1:38 PM CDT [facility] UNIT DIVISION 00 03/12/2025 1:38 PM CDT [facility] BLOOD UNIT STATUS TRANSFUSED,FINAL 03/13/2025 6:44 AM CDT [facility] ISSUE DATE/TIME [id number] 025 6:44 AM CDT [facility] PRODUCT CODE [id number] 03/13/2025 6:44 AM CDT [facility] ABO/RH Unit A POS 03/13/2025 6:44 AM CDT [facility] ABO/RH UNIT ISBT CODE 6200 03/13/2025 6:44 AM CDT [facility] BLOOD UNIT EXPIRATION DATE [id number] 03/13/2025 6:44 AM CDT [facility] TRANSFUSION STATUS OK TO TRANSFUSE 03/12/2025 1:38 PM CDT [facility] CROSSMATCH COMPATIBLE-EXM 03/12/2025 1:38 PM CDT [facility] 03/12/2025 11:1 5 AM CDT Marcelle Rich MD BLOOD BANK TEST ORDERABLES Final Result [facility] [address] [place] [address], [id number] * ORDER PLATELET PHERESIS, 1 Units (03/12/2025 6:46 AM CDT) Only the most recent of3 resultswithin the time period is included. UNITS ORDERED 1 03/12/2025 6:46 AM CDT [facility] BLOOD UNIT NUMBER [id number] 03/12/2025 9:57 AM CDT [facility] PRODUCT: PLT PHERESIS LEUKORED 7D BAG 2 03/12/2025 9:57 AM CDT [facility] UNIT DIVISION 00 03/12/2025 9:57 AM CDT [facility] BLOOD UNIT STATUS TRANSFUSED,FINAL 03/13/2025 6:44 AM CDT [facility] ISSUE DATE/TIME [id number] 025 6:44 AM CDT [facility] PRODUCT CODE [id number] 03/13/2025 6:44 AM CDT [facility] ABO/RH Unit AB POS 03/13/2025 6:44 AM CDT [facility] ABO/RH UNIT ISBT CODE 8400 03/13/2025 6:44 AM CDT [facility] BLOOD UNIT EXPIRATION DATE [id number] 03/13/2025 6:44 AM CDT [facility] TRANSFUSION STATUS OK TO TRANSFUSE 03/12/2025 9:57 AM CDT [facility] 03/12/2025 6:46 AM CDT Phani Sarmiento MD BLOOD BANK PRODUCT ORDERA BLES Final Result [facility] [address] [place] [address], [id number] * (ABNORMAL) CBC W/DIFF AUTOMATED (03/12/2025 3:50 AM CDT) Only the most recent of7 resultswithin the time period is included. WBC 0.54(L) 4.00 - 10.80 x10'3/uL 03/12/2025 4:53 AM CDT [facility] RBC 2.40(L) 4.10 - 5.40 x10'6/uL 03/12/2025 4:53 AM CDT [facility] HGB 7.1(L) 12.0 - 16.0 G/DL 03/12/2025 4:53 AM CDT [facility] HCT 21.7(L) 36.0 - 47.0 % 03/12/2025 4:53 AM CDT [facility] MCV 90.4 78.0 - 100.0 FL 03/12/2025 4:53 AM CDT [facility] MCH 29.6 27.0 - 31.0 PG 03/12/2025 4:53 AM CDT [facility] MCHC 32.7(L) 33.0 - 36.0 G/DL 03/12/2025 4:53 AM CDT [facility] RDW 17.0(H) 11.5 - 14.5 % 03/12/2025 4:53 AM CDT [facility] PLT 9(LL) 150 - 350 x10'3/uL 03/12/2025 6:54 AM CDT [facility] Comment: This result has been called to [id number] by [id number] on 03/12/2025 05:55:00, and has been read back. DIFFERENTIAL TYPE MANUAL DIFFERENTIAL 03/12/2025 6:57 AM CDT [facility] NRBC % 2.0 % 03/12/2025 6:57 AM CDT [facility] SEG NEUTROPHILS 29 % 6:57 AM CDT [facility] LYMPHOCYTES 63 % 03/12/2025 6:57 AM CDT [facility] MONOCYTES 2 % 03/12/2025 6:57 AM CDT [facility] EOSINOPHILS 2 % 03/12/2025 6:57 AM CDT [facility] BASOPHILS 0 % 03/12/2025 6:57 AM CDT [facility] BANDS 2 % 03/12/2025 6:57 AM CDT [facility] ABS. NEUTROPHILS 0.17(LL) 1.60 - 8.30 x10'3/uL 03/12/2025 6:57 AM CDT [facility] Comment: This patient has had a critical value result for this test called within the past 3 months. ABS. LYMPHOCYTES 0.35(L) 0.80 - 4.70 x10'3/uL 03/12/2025 6:57 AM CDT [facility] ABS. MONOCYTES 0.01 0.00 - 1.50 x10'3/uL 03/12/2025 6:57 AM CDT [facility] ABS. EOSINOPHILS 0.01 0.00 - 0.40 x10'3/uL 03/12/2025 6:57 AM CDT [facility] ABS. BASOPHILS 0.00 0.00 - 0.20 x10'3/uL 03/12/2025 6:57 AM CDT [facility] ABS. NUCLEATED RBC'S 0.01 0.00 - 0.01 x10'3/uL 03/12/2025 6:57 AM CDT [facility] RBC MORPHOLOGY SLIDE REVIEWED 2024 6:57 AM CDT [facility] ANISO SLIGHT 03/12/2025 6:57 AM CDT [facility] POIKLO SLIGHT 03/12/2025 6:57 AM CDT [facility] OVALOCYTES PRESENT 03/12/2025 6:57 AM CDT [facility] TEAR DROP PRESENT 03/12/2025 6:57 AM CDT [facility] JOVANNA PRESENT 03/12/2025 6:57 AM CDT [facility] PLT EST. DECREASED 03/12/2025 6:57 AM CDT [facility] 03/12/2025 3:50 AM CDT us Marcelle Rich MD LABORATORY Final Result [facility] [address] [place] [address], [phone] * (ABNORMAL) BASIC METABOLIC PANEL (03/11/2025 9:42 AM CDT) Only the most recent of5 resultswithin the time period is included. SODIUM S/P/B 139 136 - 145 MMOL/L 03/11/2025 10:19 AM CDT [facility] POTASSIUM S/P/B 3.4(L) 3.5 - 5.1 MMOL/L 03/11/2025 10:19 AM CDT [facility] CHLORIDE S/P/B 106 97 - 115 MMOL/L 03/11/2025 10:19 AM T [facility] CO2 27.1 21.0 - 32.0 MMOL/L 03/11/2025 10:19 AM T [facility] GLUCOSE 243(H) 74 - 106 MG/DL 03/11/2025 10:19 AM T [facility] BUN 15 7 - 18 MG/DL 03/11/2025 10:19 AM T [facility] CREATININE S/P/B 0.90 0.55 - 1.02 MG/DL 03/11/2025 10:19 AM T [facility] CALCIUM S/P/B 8.6 8.5 - 10.1 MG/DL 03/11/2025 10:19 AM [facility] ANION GAP 5.9 2.0 - 10.0 MMOL/L 03/11/2025 10:19 AM T [facility] OSMOLALITY (CALC) 297 MOSM/KG 025 10:19 AM [facility] Comment:REFERENCE RANGE NOT ESTABLISHED GFR ESTIMATE 74(L) >90 ML/MIN/1. 73 M2 03/11/2025 10:19 AM T [facility] GFR NOTES GFR REFERENCE S: 03/11/2025 10:19 AM T [facility] Comment: THE ESTIMATED GFR IS CALCULATED [...] MD LABORATORY Final Result Performing Organization Address [facility] de Phone Number [facility] [address] [place] [address], [phone] * PHOSPHORUS, INORGANIC PHOSPHATE (03/10/2025 2:41 AM CDT) PHOSPHORUS 3.5 2.5 - 4.9 MG/DL 03/10/2025 3:34 AM CDT [facility] 03/10/2025 2:41 AM CDT us Marcelle Rich MD LABORATORY Final Result Performing Organization Address [facility] de Phone Number [facility] [address] [place] [address], [place] [phone] * MAGNESIUM (03/10/2025 2:41 AM CDT) MAGNESIUM 1.9 1.6 - 2.6 MG/DL 03/10/2025 3:34 AM CDT [facility] 03/10/2025 2:41 AM CDT us Marcelle Rich MD LABORATORY Final Result Performing Organization Address [facility] de Phone Number [facility] [address] [place] [address], [phone] * (ABNORMAL) Blood gas, venous (03/09/2025 5:27 PM CDT) PH VENOUS 7.39 7.32 - 7.42 03/09/2025 5:37 PM CDT [facility] PCO2 VENOUS 47.7 41.0 - 51.0 MMHG 03/09/2025 5:37 PM CDT [facility] PO2 VENOUS 31.9 25.0 - 40.0 MM HG 03/09/2025 5:37 PM CDT [facility] BICARB VENOUS 28.0 24 - 28 MMOL/L 03/09/2025 5:37 PM CDT [facility] TOTAL CO2 VENOUS 29.5(H) 25.0 - 29.0 MMOL/L 03/09/2025 5:37 PM CDT [facility] BASE EXCESS VENOUS 3.1(H) 0 - 2 MMOL/L 03/09/2025 5:37 PM CDT [facility] O2 SAT VENOUS 56 <75 % 03/09/2025 5:37 PM CDT [facility] 03/09/2025 5:27 PM CDT Marcelle Rich MD LABORATORY Final Result [facility] [address] [place] [address], [phone] * XR CHEST PORTABLE (03/08/2025 11:08 AM CDT) Anatomical Region Laterality Modality Chest Radiographic Aishwarya ging 03/08/2025 12:2 3 PM CDT Impressions 03/08/2025 12:24 PM CDT IMPRESSION: 1. Mild pulmonary vascular congestion. 2. No focal consolidation or pneumothorax. Ordered By: MARCELLE RICH Interpreted By: Bk Perez MD, 03/08/2025 12:23 PM Narrative 03/08/2025 12:24 PM CDT [facility] [address] [place], [place] [address] PROCEDURE: XR CHEST PORTABLE. 03/08/2025 11:06 AM. [...] Procedure Note Bk Perez MD - 03/08/2025 [facility] [address] [place], [place] [address] PROCEDURE: XR CHEST PORTABLE. 03/08/2025 11:06 AM. [...] CDT) TEST NAME: LEUKEMIA LYMPHOMA EVAL TEST [id number] 03/08/2025 1:46 PM CDT [facility] SPECIMEN TYPE PERIPHERAL BLOOD EDTA, ROOM TEMP 03/08/2025 1:46 PM CDT [facility] TEST RESULT: Flexitest 1 03/12/2025 11:42 AM CDT [facility] REGGIE VÁSQUEZ Comment: Flexitest 1 CLINICAL INFORMATION: [...] staining intensity, forward scatter and side scatter. [employer] A - Granulocytes Marker Percentage CD2 1 CD3 0 CD4 0 CD5 0 CD7 1 CD8 0 CD10 87 CD11c 96 CD13 91 CD19 0 CD19+CD5+ 0 CD20 0 CD23 1 CD33 3 CD34 0 CD38 2 CD45 100 CD56+CD3- 2 CD64 0 CD117 0 HLA_DR 2 [place] CD19+ 0 Lambda CD19+ 0 K/L Ratio NA [employer] B - Lymphocytes Marker Percentage CD2 66 CD3 62 CD4 42 CD5 60 CD7 53 CD8 19 CD10 2 CD11c 6 CD13 0 CD19 22 CD19+CD5+ 0 CD20 22 CD23 14 CD33 0 CD34 0 CD38 46 CD45 100 CD56+CD3- 13 CD64 0 CD117 0 HLA_DR 25 [place] CD19+ 10 Lambda CD19+ 9 K/L Ratio 1.11 This test was developed and its analytical performance characteristics have been determined by [email or web address], [place], [place]. It has not been cleared or approved by the U.S. Food and Drug Administration. This assay has been validated pursuant to the CLIA regulations and is used for clinical purposes. NUMBER OF MARKERS: 22 Test Performed by [facility], [facility], [address] [place], [place] Noe Hernandez M.D., Ph.D., Director of Laboratories , [facility] [id number] 03/08/2025 11:0 7 AM CDT us Almaz Hollins MD LABORATORY Final Result Performing Organization Address City/[facility] Co de Phone Number [facility] [address] , [place] [phone] [facility] [address] [place] [address], [place] [phone] * FLOW CYTOMETRY, PERIPHERAL BLD (03/08/2025 11:07 AM CDT) FLOW CYTOMETRY TEST SENT TO [facility]. RESULTS WILL DISPLAY REF LAB TEST RESULT UNDER MISC TAB WHEN FINALIZED. 03/08/2025 12:12 PM CDT [facility] 03/08/2025 11:0 7 AM CDT us Almaz Hollins MD LABORATORY Final Result Performing Organization Address [facility] Co de Phone Number [facility] [address] [place] [address], [place] [phone] * MISCELLANEOUS LAB TEST (03/08/2025 11:07 AM CDT) TEST NAME: HLA TYPING FOR PLATELETS, ALLOIMMUNIZATION 03/08/2025 8:04 AM CDT [facility] TEST RESULT: SEE BLOOD BANK FOR TESTING RESULTS 03/11/2025 7:37 AM CDT [facility] 03/08/2025 11:0 7 AM CDT us Almaz Hollins MD LABORATORY Final Result Performing Organization Address [facility] de Phone Number [facility] [address] [place] [address], [phone] * (ABNORMAL) RETICULOCYTE CT, AUTO (03/07/2025 11:43 PM CDT) Pathologist [facility] % RETICULOCYTE COUNT 0.3(L) 0.6 - 2.3 % 03/08/2025 1:02 AM CDT [facility] ABSOLUTE RETICULOCYTE 0.01(L) 0.02 - 0.10 x10'6/uL 03/08/2025 1:02 AM CDT [facility] IMMATURE RETIC FRACTION 5.1 3.0 - 15.9 % 03/08/2025 1:02 AM CDT [facility] RETIC HGB 37.7(H) 28.0 - 35.0 PG 03/08/2025 1:02 AM CDT [facility] 03/07/2025 11:4 3 PM CDT Wesly Steve MD LABORATORY Final Result Performing Organization Address [facility] de Phone Number [facility] [address] [place] [address], [phone] * (ABNORMAL) EBV (RHONDA CAMP VIRUS) AB PANEL COMPREHENSIVE (INCL. EARLY AG D AB) (03/07/2025 11:41 PM CDT) [facility] EBV EARLY ANTIGEN-D AB IGG 71.00(H) <9.00 U/mL 03/12/2025 7:03 PM CDT [facility] DAIJA COX Comment: The potential exists for cross-reactivity with HIV (Human Immunodeficiency Virus) which could cause a false positive EBV-EA result. U/mL Interpretation <9.00 Negative 9.00 - 10.99 Equivocal >10.99 Positive EBV VCA IGM <36.00 <36.00 U/mL 03/12/2025 7:03 PM CDT [facility] Comment: U/mL Interpretation <36.00 Negative 36.00 - 43.99 Equivocal >43.99 Positive RHONDA BAR NUCLEAR ANTIGEN IGG 69.90(H) <18.00 U/mL 03/12/2025 7:03 PM CDT [facility] Comment: U/mL Interpretation <18.00 Negative 18.00 - 21.99 Equivocal >21.99 Positive EBV VCA IGG 262.00(H) <18.00 U/mL 03/12/2025 7:03 PM CDT [facility] Comment: U/mL Interpretation <18.00 Negative 18.00 - 21.99 Equivocal >21.99 Positive Test Performed by [facility], [facility], [address] [place] [address] Noe Hernandez M.D., Ph.D., Director of Laboratories , [facility] [id number] 03/07/2025 11:4 1 PM CDT Wesly Steve MD LABORATORY Final Result [facility] [id number], * [id number] ACT W/RFLX INHIBITOR (03/07/2025 11:41 PM CDT) [id number] ACTIVITY 0.79 0.68 - 1.63 IU/mL 03/10/2025 3:29 PM CDT [facility] Comment: Activity levels below 0.10 IU/mL are seen in acquired and hereditary thrombotic thrombocytopenic purpura (TTP). Not all patients with TTP will exhibit low levels of JTLQPX24 activity with this assay, i.e., post bone marrow transplantation, drug-induced TTP, and mutations of PUDJDB17 at the CUB domain. Recent plasma exchange or immunosuppressive therapy may raise the observed activity levels. Mild decreases in XJNTVV35 activity are seen in a wide variety of conditions including metastatic cancer, neonates, serious infections and cirrhosis of the liver. For more information on this test, go to http://education.Eqvilibria/faq/YTZ374 Test Performed by [facility], [facility], [address] [place] [address] Noe Hernandez M.D., Ph.D., Director of Laboratories , [facility] [id number] 03/07/2025 11:4 1 PM CDT Wesly Steve MD LABORATORY Final Result Performing Organization Address [facility]/ZIP Co de Phone Number [facility] [place] [id number] [place], [place] , [place] [phone] * (ABNORMAL) PROCALCITONIN (PCT) (03/07/2025 11:41 PM CDT) PROCALCITONIN 2.85(H) 0.00 - 0.49 NG/ML 03/08/2025 1:14 PM CDT [facility] Comment: VALUES ABOVE 2.00 NG/ML ARE HIGHLY SUGGESTIVE OF SEPSIS OR OTHER SEVERE BACTERIAL INFECTION. 03/07/2025 11:4 1 PM CDT us Wesly Steve MD LABORATORY Final Result [facility] [address] [place] [address], [place] [phone] * (ABNORMAL) TSH W/REFLEX (03/07/2025 11:41 PM CDT) TSH 0.250(L) 0.358 - 3.740 uIU/ML 03/08/2025 12:47 AM CDT [facility] Comment: ASSAY PERFORMED BY CHEMILUMINESCENCE METHODOLOGY USING [employer]. PATIENT RESULTS DETERMINED BY ASSAYS USING DIFFERENT MANUFACTURERS FOR METHODS MAY NOT BE COMPARABLE. 03/07/2025 11:4 1 PM CDT us Wesly Steve MD LABORATORY Final Result Performing Organization Address City/[facility]/ZIP Co de Phone Number [facility] [address] [place] [phone], [phone] * CMV DNA QUANT REAL TIME PCR (03/07/2025 11:41 PM CDT) Pathologist [facility] SPECIMEN SOURCE EDTA PLASMA 03/08/20 8:43 AM CDT [facility] CMV DNA QN PCR (BLD) Not Detected IU/mL 03/10/2025 6:53 PM CDT [facility] CMV DNA QUANT PCR (BLD) Not Detected log IU/mL 03/10/2025 6:53 PM CDT [facility] Charlie[facility]RIAN L[facility] Comment: REFERENCE RANGE: NOT DETECTED For additional information, please refer to http://education.MLW Squared.Profusa/faq/CMVandEBVPCR (This link is being provided for informational/ educational purposes only.) Test Performed by [facility], [facility], [address] [place] [address] Noe Hernandez M.D., Ph.D., Director of Laboratories , [facility] [id number] 03/07/2025 11:4 1 PM CDT us Wesly Steve MD LABORATORY Final Result Performing Organization Address City/[facility]/ZIP Co de Phone Number [facility] [address], [place] [phone] [facility] [address] [place] [address], [place] [phone] * (ABNORMAL) IRON SATURATION PANEL (FE,IBC,%SAT) (03/07/2025 11:41 PM CDT) Pathologist [facility] IRON 53 50 - 170 MCG/DL 03/08/2025 12:47 AM CDT [facility] IRON BINDING CAPACITY 202(L) 250 - 450 MCG/DL 03/08/2025 12:47 AM CDT [facility] IRON SATURATION 26 % 12:47 AM CDT [facility] Comment:REFERENCE RANGE NOT ESTABLISHED 03/07/2025 11:4 1 PM CDT us Wesly Steve MD LABORATORY Final Result [facility] [address] [place] [address], [id number] * VITAMIN B-12 (03/07/2025 11:41 PM CDT) Pathologist [facility] VITAMIN B12 S/P/B 511 193 - 986 PG/ML 03/08/2025 12:35 AM CDT [facility] 03/07/2025 11:4 1 PM CDT us Wesly Steve MD LABORATORY Final Result [facility] [address] [place] [address], [phone] * SED RATE, ERYTHROCYTE (ESR,WSR) (03/07/2025 11:41 PM CDT) Pathologist [facility] ESR 15 0 - 20 MM/HR 03/08/2025 12:03 AM CDT [facility] 03/07/2025 11:4 1 PM CDT Wesly Steve MD LABORATORY Final Result [facility] [address] [place] [address], [id number] * (ABNORMAL) COMPREHENSIVE METABOLIC PANEL (03/07/2025 11:41 PM CDT) SODIUM S/P/B 137 136 - 145 MMOL/L 03/08/2025 12:47 AM CDT [facility] POTASSIUM S/P/B 3.4(L) 3.5 - 5.1 MMOL/L 03/08/2025 12:47 AM CDT [facility] CHLORIDE S/P/B 107 97 - 115 MMOL/L 03/08/2025 12:47 AM CDT [facility] CO2 24.5 21.0 - 32.0 MMOL/L 03/08/2025 12:47 AM CDT [facility] GLUCOSE 261(H) 74 - 106 MG/DL 03/08/2025 12:47 AM CDT [facility] BUN 8 7 - 18 MG/DL 03/08/2025 12:47 AM CDT [facility] CREATININE S/P/B 0.80 0.55 - 1.02 MG/DL 03/08/2025 12:47 AM CDT [facility] CALCIUM S/P/B 8.0(L) 8.5 - 10.1 MG/DL 03/08/2025 12:47 AM CDT [facility] BILIRUBIN TOTAL S/P/B 0.4 0.2 - 1.0 MG/DL 03/08/2025 12:47 AM CDT [facility] ALKALINE PHOSPHATASE S/P/B 71 46 - 118 U/L 03/08/2025 12:47 AM CDT [facility] AST 43(H) 15 - 37 U/L 03/08/2025 12:47 AM CDT [facility] ALT 46 13 - 56 U/L 03/08/2025 12:47 AM T [facility] TOTAL PROTEIN S/P/B 6.5 6.4 - 8.2 G/DL 03/08/2025 12:47 AM CDT [facility] ALBUMIN S/P/B 2.9(L) 3.4 - 5.0 G/DL 03/08/2025 12:47 AM CDT [facility] ANION GAP 5.5 2.0 - 10.0 MMOL/L 03/08/2025 12:47 AM T [facility] OSMOLALITY (CALC) 291 MOSM/KG 025 12:47 AM T [facility] Comment:REFERENCE RANGE NOT ESTABLISHED GFR ESTIMATE 85(L) >90 ML/MIN/1. 73 M2 03/08/2025 12:47 AM T [facility] GFR NOTES GFR REFERENCE S: 03/08/2025 12:47 AM [facility] Comment: THE ESTIMATED GFR [...] us Wesly Steve MD LABORATORY Final Result [facility] [address] [place] [address], [place] [phone] [id number] * (ABNORMAL) LDH, LACTATE DEHYDROGENASE (03/07/2025 11:41 PM CDT) Pathologist [facility] LDH 249(H) 84 - 246 UNITS/L 03/08/2025 12:47 AM CDT [facility] 03/07/2025 11:4 1 PM CDT Wesly Steve MD LABORATORY Final Result [facility] [address] [place] [address], [id number] * (ABNORMAL) DIC PANEL (03/07/2025 11:41 PM CDT) Pathologist [facility] PROTIME 12.1 9.4 - 12.5 SEC 03/08/2025 12:11 AM CDT [facility] INR 1.1 0.8 - 1.1 03/08/2025 12:11 AM CDT [facility] PTT 27.3 25.1 - 36.5 SEC 03/08/2025 12:12 AM CDT [facility] FIBRINOGEN 330 200 - 393 MG/DL 03/08/2025 12:10 AM CDT [facility] D-DIMER 932(H) 0 - 500 ng{FEU}/m L 03/08/2025 12:11 AM CDT [facility] EXCLUSION STATEMENT 03/08/2025 12:11 AM CDT [facility] Comment: D-Dimer values less than or [...] - 350 x10'3/uL 03/07/2025 11:58 PM CDT [facility] 03/07/2025 11:4 1 PM CDT us Wesly Steve MD LABORATORY Final Result Performing Organization Address City/[facility]/ZIP Co de Phone Number [facility] [address] [place] [address], [place] [phone] * (ABNORMAL) C-REACTIVE PROTEIN (03/07/2025 11:41 PM CDT) C-REACTIVE PROTEIN 2.96(H) <0.80 mg/dL 03/08/2025 12:47 AM CDT [facility] 03/07/2025 11:4 1 PM CDT us Wesly Steve MD LABORATORY Final Result Performing Organization Address [facility] Co de Phone Number [facility] [address] [place] [address], [place] [phone] * BLOOD SMEAR PERIPHERAL INTERP PHYS W/WRIT REPORT (03/07/2025 11:41 PM CDT) CBC PATHOLOGIST COMMENT SENT TO PATHOLOGIST FOR REVIEW 03/08/2025 3:04 PM CDT [facility] 03/07/2025 11:4 1 PM CDT us Wesly Steve MD LABORATORY Final Result Performing Organization Address [facility]/ZIP Co de Phone Number [facility] [address] [place] [address], [place] [phone] * FOLIC ACID SERUM (03/07/2025 11:41 PM CDT) FOLATE 5.2 3.1 - 17.5 NG/ML 03/08/2025 12:35 AM CDT [facility] 03/07/2025 11:4 1 PM CDT Wesly Steve MD LABORATORY Final Result Performing Organization Address City/[facility] Co de Phone Number [facility] [address] [place] [address], [phone] * (ABNORMAL) THYROXINE, FREE (FT4) (03/07/2025 11:41 PM CDT) FREE T4 1.55(H) 0.76 - 1.46 NG/DL 03/08/2025 1:05 AM CDT [facility] 03/07/2025 11:4 1 PM CDT Wesly Steve MD LABORATORY Final Result Performing Organization Address [facility] de Phone Number [facility] [address] [place] [address], [place] [phone] * Pathology (03/07/2025 12:00 AM CDT) PATHOLOGY [facility] Department of Laboratory Medicine [address] [place] [address] , extension [phone] Pathology Report Peripheral Smear Report Name: IVETH BOOGIE Specimen #: [id number] Age: 8 1965 (Age: 60) Location: [facility] Sex: F Procedure Date: 03/07/2025 Hospital #: [id number] Date Received: 03/08/2025 Date Reported: 03/08/2025 Provider: [...] 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 [id number] testing is pending at the time of [...] Interpretation and sign out were performed at [address], [address] [place] [address]. [facility] 03/07/2025 03/08/2025 7:5 2 AM CDT Comment:Peripheral blood us Wesly Steve MD PATHOLOGY/CYTOLOGY ORDERABLES F inal Result [facility] [address] [place] [address], [id number] * PROTIME/INR, VENOUS (01/26/2025 3:25 PM CDT) PROTIME 11.9 9.4 - 12.5 SEC 01/26/2025 3:40 PM CDT [facility] INR 1.0 0.8 - 1.0 01/26/2025 3:40 PM CDT [facility] 01/26/2025 3:25 PM CDT Bharat Young DO LABORATORY Final Result [facility] [address] [place] [address], [place] [phone] from Last 3 Months Insurance MEDICAID MEDICARE Advance Directives * Full Code (Latest Code Status on File) Date Activated Date Inactivated Comments 03/07/2025 10:49 PM 03/12/2025 8:04 PM Care Teams Licensed Funeral Director Relationship Specialty Start Date End Date Reagan Fonseca MD [address] [place] [address] PCP - General FAMILY PRACTICE 01/26/25
--- OUTSIDE RECORDS SUMMARY | 2025-03-26 10:14 | XMS_ITS ---
Author Organization Unknown Address [address] [place] [phone] Phone Care Team Providers Care Sand Filler Name Role Phone PIPPA GREGORIONISHA Attending Unavailable JOHAN SULLIVAN Primary Unavailable Immunization Immunization Date Status Additional Notes Code Code System Tdap 03/26/2021 Completed 115 CVX Social History Type Status Start Date End Date Code Code Syst em Smoking History Unknown if ever smoked [address] Sex Female Vital Signs Vital Sign Value Unit Fallon Value Fallon Unit Date/Time Recent/Initial? Code Code System Body Mass Index 34.97 kg/m2 02/04/2025 09:56 Initial 78207 -5 [facility] Systolic Blood Pressure 168 mm[Hg] 02/04/2025 09:53 Initial 8480- 6 LOINC Diastolic Blood Pressure 73 mm[Hg] 02/04/2025 09:53 Initial 8462- 4 INC Body Surface Area 2.24 m2 02/04/2025 09:56 Initial 3140- 1 LOINC Height 172.720 0 cm 68.00 in 02/04/2025 09:56 Initial 8302- 2 LOINC O2 Saturation 100 % 2024 09:53 Initial 22242 -5 LOINC Pulse 99.0 /min 02/04/2025 09:53 Initial 8867- 4 LOINC Respiration 22 /min 02/05/20 09:53 Initial 9279- 1 LOINC Temperature 36.3 Freda 97.3 F 02/05/20 09:53 Initial 8310- 5 LOINC Weight 104.33 kg 230.00 lbs 02/04/2025 09:56 Initial 29015 -7 INC Hospital Discharge Instructions Should you have any questions prior to discharge, please contact a member of your healthcare team. If you have left the hospital and have any questions, please contact your primary care physician. Reason For Referral No Data Found Plan of Treatment Picc Line Removal 03/27/2025 PICC Line Placement 03/27/2025 US Venous Right UE ([id number]) 03/27/2025 Picc Line Removal 03/27/2025 PICC Line Placement 03/27/2025 US Venous Right UE ([id number]) 03/27/2025 Picc Line Removal 03/27/2025 PICC Line Placement 03/27/2025 US Venous Right UE ([id number]) 03/27/2025 Encounters Encounter Diagnosis Start Date Code Code Sys tem Myelodysplastic syndrome, unspecified 02/04/2025 SNOMED-CT Personal Care Team Section Performer Name Performer Role Active Date Inactive LAURIE Hidalgo PCP - Primary care physician
--- OUTSIDE RECORDS SUMMARY | 2025-03-26 10:15 | XMS_ITS ---
Author Organization Unknown Address [address] [place] [phone] Phone Care Team Providers Care Multicraft Operator Name Role Phone JOHAN SULLIVAN Attending Unavailable Immunization Immunization Date Status Additional Notes Code Code System Tdap 03/26/2021 Completed 115 CVX Results US GALLBLADDER - Completed: 12/25/2024 12:00 LOINC: \TM00\\12PI\\DRAo\\BM09\ \MRHo\ [address] [address] ---------NAME--------- NUMBER SEX AGE ADMIT DISC. XRAY# F/C TYPE CHUYITA TONY [id number] F 59 12/25/24 12/25/24 16525 MBJ O/P DATE OF : 1965 M/R# [id number] PH#: [phone] RM \MRHx\ LOCATION: TRANSCRIBED: 12/25/24 13:39 US GALLBLADDER [id number] COMPLETED:12/25/24 12:00 APC [id number] {REASON-US ABD: ABDOMINAL PAIN PHYSICIAN: JOHAN R [...] of gallstones or acute cholecystitis. Hepatic steatosis. ECT MANAGER PROCESS DEVELOPMENT \ITLo\ \UNDo\ \UNDx\ \ITLx\ Reviewed and Electronically Signed by: Ivan Acosta MD Signed Date: 12/25/24 13:39 Social History Type Status Start Date End Date Code Code Syst em Smoking History Unknown if ever smoked [address] Sex Female Hospital Discharge Instructions Should you have any questions prior to discharge, please contact a member of your healthcare team. If you have left the hospital and have any questions, please contact your primary care physician. Reason For Referral No Data Found Plan of Treatment Picc Line Removal 03/27/2025 PICC Line Placement 03/27/2025 US Venous Right UE ([id number]) 03/27/2025 Picc Line Removal 03/27/2025 PICC Line Placement 03/27/2025 US Venous Right UE ([id number]) 03/27/2025 Picc Line Removal 03/27/2025 PICC Line Placement 03/27/2025 US Venous Right UE ([id number]) 03/27/2025 Encounters Encounter Diagnosis Start Date Code Code Sys tem Fatty (change of) liver, not elsewhere classified 04/2025 SNOMED-CT Personal Care Team Section Performer Name Performer Role Active Date Inactive LAURIE Hidalgo PCP - Primary care physician Imaging Narrative Notes [facility] 12/25/2024 13:42 [facility] [address] [place] [address] ---------NAME--------- NUMBER SEX AGE ADMIT DISC. XRAY# F/C TYPE CHUYITA TONY [id number] F 59 12/25/24 12/25/24 03937 MB O/P DATE OF : 1965 M/R# [id number] #: [phone] LOCATION: TRANSCRIBED: 12/25/24 13:39 US GALLBLADDER [id number] COMPLETED:12/25/24 12:00 APC [id number] {REASON-US ABD: ABDOMINAL PAIN PHYSICIAN: JOHAN RADIOLOGY [...] of gallstones or acute cholecystitis. Hepatic steatosis. ECT MANAGER PROCESS DEVELOPMENT Reviewed and Electronically Signed by: Ivan Acosta MD Signed Date: 12/25/24 13:39
[2025-03-26 10:25] VITALS: BMI 31.6
[2025-03-26] MEDS: ONDANSETRON IV PUSH (10:30)
[2025-03-26] MEDS: SODIUM CHLORIDE 0.9% IV PUSH (10:30)
[2025-03-26] MEDS: DECITABINE IVPB (11:00)
[2025-03-26] MEDS: SODIUM CHLORIDE 0.9% IVPB (11:00)
[2025-03-26 12:15] VITALS: BP 130/65; PULSE 80; RESP 14; TEMP 36.6; O2SAT 94
--- NOTE | 2025-03-26 13:02 | PC.NURSE ---
1225 Tolerated Treatment Well. SEE MAR/patient care notes.
== END 2025-03-26 10:05 | disposition home or self-care (01) ==
PROVIDERS: PCP Family Medicine; Visit Provider Internal Medicine Hematology
DX: D46.21 Refractory anemia with excess of blasts 1 (principal)
CPT/HCPCS: 96366; 96375; 96413; J0894; J2405; J7050

== ENCOUNTER 2025-03-27 11:28 | Outpatient (CLI) | payer MEDICARE, SELFPAY ==
--- OUTSIDE RECORDS SUMMARY | 2025-03-27 11:33 | XMS_ITS | Encounter Summary ---
Author Organization [facility] Address [address] [place] [id number] Care Team Providers Care Furnace Packer Name Role Phone Reagan Fonseca MD Primary Care Provider [phone] Encounter Details Date Type Department Care Team (Late st Contact Info) Description 02/24/2019 Abstract [facility]FL CONVERSION [address] [place] [address] , Generic Conversion, Social History Tobacco Use [...] on filedocumented in this encounter Care Teams Furnace Packer Relationship Specialty Start Date End Date Reagan Fonseca MD [address] [place] [address] PCP - General FAMILY PRACTICE 01/26/25 documented as of this encounter
--- OUTSIDE RECORDS SUMMARY | 2025-03-27 11:33 | XMS_ITS | Encounter Summary ---
Author Organization [facility] Address [address] [place] [id number] Care Team Providers Care Director Custom Name Role Phone Reagan Fonseca MD Primary Care Provider [phone] Encounter Details Date Type Department Care Team (Late st Contact Info) Description 12/03/2017 Abstract [facility] CONVERSION [address] [place] [address] , Generic Conversion, Social History Tobacco Use [...] on filedocumented in this encounter Care Teams Director Custom Relationship Specialty Start Date End Date Reagan Fonseca MD [address] [place] [address] PCP - General FAMILY PRACTICE 01/26/25 documented as of this encounter
--- OUTSIDE RECORDS SUMMARY | 2025-03-27 11:33 | XMS_ITS | Clinical Summary ---
Author Organization [facility] Address [facility] [place] [address] Care Team Providers Care Director Supply Name Role Phone Reagan Fonseca MD Primary Care Provider [phone] Allergies Active Allergy Reactions Criticality Noted Date [...] - 03/12/2025 5:58 PM CDT Hospital Encounter [facility] [address] [place] [address] Hansel Strickland MD Sheikh, MD Kory Alonso, MD Marcelle Discharge Disposition: Home or Self Care (Routine Discharge) 03/07/2025 Travel 01/26/2025 2:50 PM CDT - 01/26/2025 8:40 PM CDT Emergency [facility] [place] [address] Bharat Young, Medical Problem Discharge Disposition: Home [...] from your doctor or pharmacy? Rarely 03/08/2025 [facility] Utilities Answer Date Recorded In the past 12 months has e [employer], [employer], or water X[employer] threatened to shut off services in your [...] week 03/08/2025 How often do you attend mandaen or lutheran serv ices? Never 03/08/2025 Do you belong to any clubs o r organizations such as mandaen groups, unions, fraternal or athletic groups, or [...] medical care, and heating? Patient declined 03/08/2025 [facility] [...] in the past 12 m [facility], were you homeless or living in a care home (including now)? No 03/08/2025 Comments No Sex [...] SERUM Routine 03/07/2025 11:4 1 PM CDT [id number] ACT W/RFLX INHIBITOR Routine 03/07/2025 11:41 PM [...] 70 - 109 03/12/2025 4:08 PM CDT [facility] 03/12/2025 4:04 PM CDT Marcelle Rich MD POCT ORDERABLES - DEVICE Final R esult [facility] [address] [place] [address], [id number] * TRANSFUSE PLATELET PHERESIS (03/12/2025 1:41 PM CDT) Only the most recent of4 resultswithin the time period is included. Phani Sarmiento MD NURSING TREATMENT ORDERAB LES - BLOOD ADMIN Final Result * TYPE & SCREEN (03/12/2025 11:15 AM CDT) Only the most recent of3 resultswithin the time period is included. UNITS ORDERED 1 03/12/2025 11:01 AM CDT [facility] ABO/RH A POSITIVE 03/12/2025 1:38 PM CDT [facility] ANTIBODY SCREEN NEGATIVE 1:38 PM CDT [facility] SAMPLE EXPIRATION 03/15/2025,2359 03/12/2025 12:56 PM CDT [facility] BLOOD UNIT NUMBER [id number] 03/12/2025 1:38 PM CDT [facility] PRODUCT: PC LEUKOPOOR 03/12/2025 1:38 PM CDT [facility] UNIT DIVISION 00 03/12/2025 1:38 PM CDT [facility] BLOOD UNIT STATUS TRANSFUSED,FINAL 03/13/2025 6:44 AM CDT [facility] ISSUE DATE/TIME [id number] 025 6:44 AM CDT [facility] PRODUCT CODE [id number] 03/13/2025 6:44 AM CDT [facility] ABO/RH Unit A POS 03/13/2025 6:44 AM CDT [facility] ABO/RH UNIT ISBT CODE [id number] 03/13/2025 6:44 AM CDT [facility] BLOOD UNIT EXPIRATION DATE [id number] 03/13/2025 6:44 AM CDT [facility] TRANSFUSION STATUS OK TO TRANSFUSE 03/12/2025 1:38 PM CDT [facility] CROSSMATCH COMPATIBLE-EXM 03/12/2025 1:38 PM CDT [facility] 03/12/2025 11:1 5 AM CDT Marcelle Rich MD BLOOD BANK TEST ORDERABLES Final Result [facility] [address] [place] [address], [id number] * ORDER PLATELET PHERESIS, 1 Units (03/12/2025 6:46 AM CDT) Only the most recent of3 resultswithin the time period is included. UNITS ORDERED 1 03/12/2025 6:46 AM CDT [facility] BLOOD UNIT NUMBER [id number] 03/12/2025 9:57 AM CDT [facility] PRODUCT: PLT PHERESIS LEUKORED 7D BAG 2 03/12/2025 9:57 AM CDT [facility] UNIT DIVISION 00 03/12/2025 9:57 AM CDT [facility] BLOOD UNIT STATUS TRANSFUSED,FINAL 03/13/2025 6:44 AM CDT [facility] ISSUE DATE/TIME [id number] 025 6:44 AM CDT [facility] PRODUCT CODE [id number] 03/13/2025 6:44 AM CDT [facility] ABO/RH Unit AB POS 03/13/2025 6:44 AM CDT [facility] ABO/RH UNIT ISBT CODE [id number] 03/13/2025 6:44 AM CDT [facility] BLOOD UNIT EXPIRATION DATE [id number] 03/13/2025 6:44 AM CDT [facility] TRANSFUSION STATUS OK TO TRANSFUSE 03/12/2025 9:57 AM CDT [facility] 03/12/2025 6:46 AM CDT Phani Samriento MD BLOOD BANK PRODUCT ORDERA BLES Final Result [facility] [address] [place] [address], [id number] * (ABNORMAL) CBC W/DIFF AUTOMATED (03/12/2025 3:50 AM CDT) Only the most recent of7 resultswithin the time period is included. WBC 0.54(L) 4.00 - 10.80 x10'3/uL 03/12/2025 4:53 AM CDT [facility] RBC 2.40(L) 4.10 - 5.40 x10'6/uL 03/12/2025 4:53 AM CDT [facility] HGB 7.1(L) 12.0 - 16.0 G/DL 03/12/2025 4:53 AM CDT [facility] HCT 21.7(L) 36.0 - 47.0 % 03/12/2025 4:53 AM CDT [facility] MCV 90.4 78.0 - 100.0 FL 03/12/2025 4:53 AM CDT [facility] MCH 29.6 27.0 - 31.0 PG 03/12/2025 4:53 AM CDT [facility] MCHC 32.7(L) 33.0 - 36.0 G/DL 03/12/2025 4:53 AM CDT [facility] RDW 17.0(H) 11.5 - 14.5 % 03/12/2025 4:53 AM CDT [facility] PLT 9(LL) 150 - 350 x10'3/uL 03/12/2025 6:54 AM CDT [facility] Comment: This result has been called to [id number] by [id number] on 03/12/2025 05:55:00, and has been read back. DIFFERENTIAL TYPE MANUAL DIFFERENTIAL 03/12/2025 6:57 AM CDT [facility] NRBC % 2.0 % 03/12/2025 6:57 AM CDT [facility] SEG NEUTROPHILS 29 % 6:57 AM CDT [facility] LYMPHOCYTES 63 % 03/12/2025 6:57 AM CDT [facility] MONOCYTES 2 % 03/12/2025 6:57 AM CDT [facility] EOSINOPHILS 2 % 03/12/2025 6:57 AM CDT [facility] BASOPHILS 0 % 03/12/2025 6:57 AM CDT [facility] BANDS 2 % 03/12/2025 6:57 AM CDT [facility] ABS. NEUTROPHILS 0.17(LL) 1.60 - 8.30 x10'3/uL 03/12/2025 6:57 AM CDT [facility] Comment: This patient has had a critical value result for this test called within the past 3 months. ABS. LYMPHOCYTES 0.35(L) 0.80 - 4.70 x10'3/uL 03/12/2025 6:57 AM CDT [facility] ABS. MONOCYTES 0.01 0.00 - 1.50 x10'3/uL 03/12/2025 6:57 AM CDT [facility] ABS. EOSINOPHILS 0.01 0.00 - 0.40 x10'3/uL 03/12/2025 6:57 AM CDT [facility] ABS. BASOPHILS 0.00 0.00 - 0.20 x10'3/uL 03/12/2025 6:57 AM CDT [facility] ABS. NUCLEATED RBC'S 0.01 0.00 - 0.01 x10'3/uL 03/12/2025 6:57 AM CDT [facility] RBC MORPHOLOGY SLIDE REVIEWED 2024 6:57 AM CDT [facility] ANISO SLIGHT 03/12/2025 6:57 AM CDT [facility] POIKLO SLIGHT 03/12/2025 6:57 AM CDT [facility] OVALOCYTES PRESENT 03/12/2025 6:57 AM CDT [facility] TEAR DROP PRESENT 03/12/2025 6:57 AM CDT [facility] JOVANNA PRESENT 03/12/2025 6:57 AM CDT [facility] PLT EST. DECREASED 03/12/2025 6:57 AM CDT [facility] 03/12/2025 3:50 AM CDT us Marcelle Rich MD LABORATORY Final Result [facility] [address] [place] [address], [id number] * (ABNORMAL) BASIC METABOLIC PANEL (03/11/2025 9:42 AM CDT) Only the most recent of5 resultswithin the time period is included. SODIUM S/P/B 139 136 - 145 MMOL/L 03/11/2025 10:19 AM CDT [facility] POTASSIUM S/P/B 3.4(L) 3.5 - 5.1 MMOL/L 03/11/2025 10:19 AM CDT [facility] CHLORIDE S/P/B 106 97 - 115 MMOL/L 03/11/2025 10:19 AM T [facility] CO2 27.1 21.0 - 32.0 MMOL/L 03/11/2025 10:19 AM T [facility] GLUCOSE 243(H) 74 - 106 MG/DL 03/11/2025 10:19 AM T [facility] BUN 15 7 - 18 MG/DL 03/11/2025 10:19 AM T [facility] CREATININE S/P/B 0.90 0.55 - 1.02 MG/DL 03/11/2025 10:19 AM T [facility] CALCIUM S/P/B 8.6 8.5 - 10.1 MG/DL 03/11/2025 10:19 AM [facility] ANION GAP 5.9 2.0 - 10.0 MMOL/L 03/11/2025 10:19 AM T [facility] OSMOLALITY (CALC) 297 MOSM/KG 025 10:19 AM [facility] Comment:REFERENCE RANGE NOT ESTABLISHED GFR ESTIMATE 74(L) >90 ML/MIN/1. 73 M2 03/11/2025 10:19 AM T [facility] GFR NOTES GFR REFERENCE S: 03/11/2025 10:19 AM T [facility] Comment: THE ESTIMATED GFR IS CALCULATED [...] MD LABORATORY Final Result Performing Organization Address [facility] de Phone Number [facility] [address] [place] [address], [id number] * PHOSPHORUS, INORGANIC PHOSPHATE (03/10/2025 2:41 AM CDT) PHOSPHORUS 3.5 2.5 - 4.9 MG/DL 03/10/2025 3:34 AM CDT [facility] 03/10/2025 2:41 AM CDT us Marcelle Rich MD LABORATORY Final Result Performing Organization Address [facility] de Phone Number [facility] [address] [place] [address], [place] [phone] * MAGNESIUM (03/10/2025 2:41 AM CDT) MAGNESIUM 1.9 1.6 - 2.6 MG/DL 03/10/2025 3:34 AM CDT [facility] 03/10/2025 2:41 AM CDT us Marcelle Rich MD LABORATORY Final Result Performing Organization Address [facility] de Phone Number [facility] [address] [place] [address], [id number] * (ABNORMAL) Blood gas, venous (03/09/2025 5:27 PM CDT) PH VENOUS 7.39 7.32 - 7.42 03/09/2025 5:37 PM CDT [facility] PCO2 VENOUS 47.7 41.0 - 51.0 MMHG 03/09/2025 5:37 PM CDT [facility] PO2 VENOUS 31.9 25.0 - 40.0 MM HG 03/09/2025 5:37 PM CDT [facility] BICARB VENOUS 28.0 24 - 28 MMOL/L 03/09/2025 5:37 PM CDT [facility] TOTAL CO2 VENOUS 29.5(H) 25.0 - 29.0 MMOL/L 03/09/2025 5:37 PM CDT [facility] BASE EXCESS VENOUS 3.1(H) 0 - 2 MMOL/L 03/09/2025 5:37 PM CDT [facility] O2 SAT VENOUS 56 <75 % 03/09/2025 5:37 PM CDT [facility] 03/09/2025 5:27 PM CDT Marcelle Rich MD LABORATORY Final Result [facility] [address] [place] [address], [id number] * XR CHEST PORTABLE (03/08/2025 11:08 AM CDT) Anatomical Region Laterality Modality Chest Radiographic Aishwarya ging 03/08/2025 12:2 3 PM CDT Impressions 03/08/2025 12:24 PM CDT IMPRESSION: 1. Mild pulmonary vascular congestion. 2. No focal consolidation or pneumothorax. Ordered By: MARCELLE RICH Interpreted By: Bk Perez MD, 03/08/2025 12:23 PM Narrative 03/08/2025 12:24 PM CDT [facility] [address] [place], [place] [address] PROCEDURE: XR CHEST PORTABLE. 03/08/2025 11:06 AM. [...] Note Bk Perez MD - 03/08/2025 [facility] [address] [place], [place] [address] PROCEDURE: XR CHEST PORTABLE. 03/08/2025 11:06 AM. [...] CDT) TEST NAME: LEUKEMIA LYMPHOMA EVAL TEST [id number] 03/08/2025 1:46 PM CDT [facility] SPECIMEN TYPE PERIPHERAL BLOOD EDTA, ROOM TEMP 03/08/2025 1:46 PM CDT [facility] TEST RESULT: Flexitest 1 03/12/2025 11:42 AM CDT [facility] REGGIE VÁSQUEZ Comment: Flexitest 1 CLINICAL INFORMATION: [...] staining intensity, forward scatter and side scatter. [place] A - Granulocytes Marker Percentage CD2 1 CD3 0 CD4 0 CD5 0 CD7 1 CD8 0 CD10 87 CD11c 96 CD13 91 CD19 0 CD19+CD5+ 0 CD20 0 CD23 1 CD33 3 CD34 0 CD38 2 CD45 100 CD56+CD3- 2 CD64 0 CD117 0 HLA_DR 2 [place] CD19+ 0 Lambda CD19+ 0 K/L Ratio NA [place] B - Lymphocytes Marker Percentage CD2 66 CD3 62 CD4 42 CD5 60 CD7 53 CD8 19 CD10 2 CD11c 6 CD13 0 CD19 22 CD19+CD5+ 0 CD20 22 CD23 14 CD33 0 CD34 0 CD38 46 CD45 100 CD56+CD3- 13 CD64 0 CD117 0 HLA_DR 25 [place] CD19+ 10 Lambda CD19+ 9 K/L Ratio 1.11 This test was developed and its analytical performance characteristics have been determined by [facility] [place], [place], [place]. It has not been cleared or approved by the U.S. Food and Drug Administration. This assay has been validated pursuant to the CLIA regulations and is used for clinical purposes. NUMBER OF MARKERS: 22 Test Performed by [facility], [facility] [facility], [address] [place], [place] Noe Hernandez M.D., Ph.D., Director of Laboratories , [facility] [id number] 03/08/2025 11:0 7 AM CDT us Almaz Hollins MD LABORATORY Final Result Performing Organization Address City/[facility] Co de Phone Number [facility] [address] , [place] [phone] [facility] [address] [place] [address], [place] [phone] [id number] * FLOW CYTOMETRY, PERIPHERAL BLD (03/08/2025 11:07 AM CDT) FLOW CYTOMETRY TEST SENT TO [facility]. RESULTS WILL DISPLAY REF LAB TEST RESULT UNDER MISC TAB WHEN FINALIZED. 03/08/2025 12:12 PM CDT [facility] 03/08/2025 11:0 7 AM CDT us Almaz Hollins MD LABORATORY Final Result Performing Organization Address [facility] Co de Phone Number [facility] [address] [place] [address], [place] [phone] * MISCELLANEOUS LAB TEST (03/08/2025 11:07 AM CDT) TEST NAME: HLA TYPING FOR PLATELETS, ALLOIMMUNIZATION 03/08/2025 8:04 AM CDT [facility] TEST RESULT: SEE BLOOD BANK FOR TESTING RESULTS 03/11/2025 7:37 AM CDT [facility] 03/08/2025 11:0 7 AM CDT us Almaz Hollins MD LABORATORY Final Result Performing Organization Address [facility] de Phone Number [facility] [address] [place] [address], [id number] * (ABNORMAL) RETICULOCYTE CT, AUTO (03/07/2025 11:43 PM CDT) Pathologist [facility] % RETICULOCYTE COUNT 0.3(L) 0.6 - 2.3 % 03/08/2025 1:02 AM CDT [facility] ABSOLUTE RETICULOCYTE 0.01(L) 0.02 - 0.10 x10'6/uL 03/08/2025 1:02 AM CDT [facility] IMMATURE RETIC FRACTION 5.1 3.0 - 15.9 % 03/08/2025 1:02 AM CDT [facility] RETIC HGB 37.7(H) 28.0 - 35.0 PG 03/08/2025 1:02 AM CDT [facility] 03/07/2025 11:4 3 PM CDT Wesly Steve MD LABORATORY Final Result Performing Organization Address [facility] de Phone Number [facility] [address] [place] [address], [id number] * (ABNORMAL) EBV (RHONDA CAMP VIRUS) AB PANEL COMPREHENSIVE (INCL. EARLY AG D AB) (03/07/2025 11:41 PM CDT) [facility] EBV EARLY ANTIGEN-D AB IGG 71.00(H) <9.00 U/mL 03/12/2025 7:03 PM CDT [facility] DAIJA COX Comment: The potential exists for cross-reactivity with HIV (Human Immunodeficiency Virus) which could cause a false positive EBV-EA result. U/mL Interpretation <9.00 Negative 9.00 - 10.99 Equivocal >10.99 Positive EBV VCA IGM <36.00 <36.00 U/mL 03/12/2025 7:03 PM CDT [facility] DAIJA COX Comment: U/mL Interpretation <36.00 Negative 36.00 - 43.99 Equivocal >43.99 Positive RHONDA BAR NUCLEAR ANTIGEN IGG 69.90(H) <18.00 U/mL 03/12/2025 7:03 PM CDT [facility] DAIJA COX Comment: U/mL Interpretation <18.00 Negative 18.00 - 21.99 Equivocal >21.99 Positive EBV VCA IGG 262.00(H) <18.00 U/mL 03/12/2025 7:03 PM CDT [facility] DAIJA COX Comment: U/mL Interpretation <18.00 Negative 18.00 - 21.99 Equivocal >21.99 Positive Test Performed by [facility], [employer] [facility], [address] [place] [address] Noe Hernandez M.D., Ph.D., Director of Laboratories , [facility] [id number] 03/07/2025 11:4 1 PM CDT Wesly Steve MD LABORATORY Final Result [facility] [address], * [id number] ACT W/RFLX INHIBITOR (03/07/2025 11:41 PM CDT) [id number] ACTIVITY 0.79 0.68 - 1.63 IU/mL 03/10/2025 3:29 PM CDT [facility] DAIJA COX Comment: Activity levels below 0.10 IU/mL are seen in acquired and hereditary thrombotic thrombocytopenic purpura (TTP). Not all patients with TTP will exhibit low levels of LCXTIK50 activity with this assay, i.e., post bone marrow transplantation, drug-induced TTP, and mutations of TNLGLP14 at the CUB domain. Recent plasma exchange or immunosuppressive therapy may raise the observed activity levels. Mild decreases in RYNZMM62 activity are seen in a wide variety of conditions including metastatic cancer, neonates, serious infections and cirrhosis of the liver. For more information on this test, go to http://education.SIRION BIOTECH/faq/LSJ281 Test Performed by [facility], [employer] [facility], [address] [place] [address] Neo Hernandez M.D., Ph.D., Director of Laboratories , [facility] [id number] 03/07/2025 11:4 1 PM CDT Wesly Steve MD LABORATORY Final Result Performing Organization Address [facility]/ZIP Co de Phone Number [facility] [place] [id number] [place], [place] , [place] [phone] * (ABNORMAL) PROCALCITONIN (PCT) (03/07/2025 11:41 PM CDT) PROCALCITONIN 2.85(H) 0.00 - 0.49 NG/ML 03/08/2025 1:14 PM CDT [facility] Comment: VALUES ABOVE 2.00 NG/ML ARE HIGHLY SUGGESTIVE OF SEPSIS OR OTHER SEVERE BACTERIAL INFECTION. 03/07/2025 11:4 1 PM CDT us Wesly Steev MD LABORATORY Final Result [facility] [address] [place] [address], [place] [phone] [phone] * (ABNORMAL) TSH W/REFLEX (03/07/2025 11:41 PM CDT) TSH 0.250(L) 0.358 - 3.740 uIU/ML 03/08/2025 12:47 AM CDT [facility] Comment: ASSAY PERFORMED BY CHEMILUMINESCENCE METHODOLOGY USING [employer]EM[employer] REAGENT. PATIENT RESULTS DETERMINED BY ASSAYS USING DIFFERENT MANUFACTURERS FOR METHODS MAY NOT BE COMPARABLE. 03/07/2025 11:4 1 PM CDT us Wesly Steve MD LABORATORY Final Result Performing Organization Address City/[facility]/ZIP Co de Phone Number [facility] [address] [place] [id number], [id number] * CMV DNA QUANT REAL TIME PCR (03/07/2025 11:41 PM CDT) Pathologist [facility] SPECIMEN SOURCE EDTA PLASMA 03/08/20 8:43 AM CDT [facility] CMV DNA QN PCR (BLD) Not Detected IU/mL 03/10/2025 6:53 PM CDT [facility] [employer] CMV DNA QUANT PCR (BLD) Not Detected log IU/mL 03/10/2025 6:53 PM CDT [facility] LLY Comment: REFERENCE RANGE: NOT DETECTED For additional information, please refer to http://education.[employer]UC[employer]/faq/CMVandEBVPCR (This link is being provided for informational/ educational purposes only.) Test Performed by [facility], [employer] [place], [address] [place] [address] Noe Hernandez M.D., Ph.D., Director of Laboratories , [facility] [id number] 03/07/2025 11:4 1 PM CDT us Wesly Steve MD LABORATORY Final Result Performing Organization Address City/[facility]/ZIP Co de Phone Number [facility] [address], [place] [phone] [facility] [address] [place] [address], [place] [phone] [id number] * (ABNORMAL) IRON SATURATION PANEL (FE,IBC,%SAT) (03/07/2025 11:41 PM CDT) Pathologist [facility] IRON 53 50 - 170 MCG/DL 03/08/2025 12:47 AM CDT [facility] IRON BINDING CAPACITY 202(L) 250 - 450 MCG/DL 03/08/2025 12:47 AM CDT [facility] IRON SATURATION 26 % 12:47 AM CDT [facility] Comment:REFERENCE RANGE NOT ESTABLISHED 03/07/2025 11:4 1 PM CDT us Wesly Steve MD LABORATORY Final Result [facility] [address] [place] [address], [id number] * VITAMIN B-12 (03/07/2025 11:41 PM CDT) Pathologist [facility] VITAMIN B12 S/P/B 511 193 - 986 PG/ML 03/08/2025 12:35 AM CDT [facility] 03/07/2025 11:4 1 PM CDT us Wesly Steve MD LABORATORY Final Result [facility] [address] [place] [address], [id number] * SED RATE, ERYTHROCYTE (ESR,WSR) (03/07/2025 11:41 PM CDT) Pathologist [facility] ESR 15 0 - 20 MM/HR 03/08/2025 12:03 AM CDT [facility] 03/07/2025 11:4 1 PM CDT Wesly Steve MD LABORATORY Final Result [facility] [address] [place] [address], [id number] * (ABNORMAL) COMPREHENSIVE METABOLIC PANEL (03/07/2025 11:41 PM CDT) SODIUM S/P/B 137 136 - 145 MMOL/L 03/08/2025 12:47 AM CDT [facility] POTASSIUM S/P/B 3.4(L) 3.5 - 5.1 MMOL/L 03/08/2025 12:47 AM CDT [facility] CHLORIDE S/P/B 107 97 - 115 MMOL/L 03/08/2025 12:47 AM CDT [facility] CO2 24.5 21.0 - 32.0 MMOL/L 03/08/2025 12:47 AM CDT [facility] GLUCOSE 261(H) 74 - 106 MG/DL 03/08/2025 12:47 AM CDT [facility] BUN 8 7 - 18 MG/DL 03/08/2025 12:47 AM CDT [facility] CREATININE S/P/B 0.80 0.55 - 1.02 MG/DL 03/08/2025 12:47 AM CDT [facility] CALCIUM S/P/B 8.0(L) 8.5 - 10.1 MG/DL 03/08/2025 12:47 AM CDT [facility] BILIRUBIN TOTAL S/P/B 0.4 0.2 - 1.0 MG/DL 03/08/2025 12:47 AM CDT [facility] ALKALINE PHOSPHATASE S/P/B 71 46 - 118 U/L 03/08/2025 12:47 AM CDT [facility] AST 43(H) 15 - 37 U/L 03/08/2025 12:47 AM CDT [facility] ALT 46 13 - 56 U/L 03/08/2025 12:47 AM T [facility] TOTAL PROTEIN S/P/B 6.5 6.4 - 8.2 G/DL 03/08/2025 12:47 AM CDT [facility] ALBUMIN S/P/B 2.9(L) 3.4 - 5.0 G/DL 03/08/2025 12:47 AM CDT [facility] ANION GAP 5.5 2.0 - 10.0 MMOL/L 03/08/2025 12:47 AM T [facility] OSMOLALITY (CALC) 291 MOSM/KG 025 12:47 AM T [facility] Comment:REFERENCE RANGE NOT ESTABLISHED GFR ESTIMATE 85(L) >90 ML/MIN/1. 73 M2 03/08/2025 12:47 AM T [facility] GFR NOTES GFR REFERENCE S: 03/08/2025 12:47 AM [facility] Comment: THE ESTIMATED GFR [...] us Wesly Steve MD LABORATORY Final Result [facility] [address] [place] [address], [place] [phone] [id number] * (ABNORMAL) LDH, LACTATE DEHYDROGENASE (03/07/2025 11:41 PM CDT) Pathologist [facility] LDH 249(H) 84 - 246 UNITS/L 03/08/2025 12:47 AM CDT [facility] 03/07/2025 11:4 1 PM CDT Wesly Steve MD LABORATORY Final Result [facility] [address] [place] [address], [phone] * (ABNORMAL) DIC PANEL (03/07/2025 11:41 PM CDT) Pathologist [facility] PROTIME 12.1 9.4 - 12.5 SEC 03/08/2025 12:11 AM CDT [facility] INR 1.1 0.8 - 1.1 03/08/2025 12:11 AM CDT [facility] PTT 27.3 25.1 - 36.5 SEC 03/08/2025 12:12 AM CDT [facility] FIBRINOGEN 330 200 - 393 MG/DL 03/08/2025 12:10 AM CDT [facility] D-DIMER 932(H) 0 - 500 ng{FEU}/m L 03/08/2025 12:11 AM CDT [facility] EXCLUSION STATEMENT 03/08/2025 12:11 AM CDT [facility] Comment: D-Dimer values less than or [...] - 350 x10'3/uL 03/07/2025 11:58 PM CDT [facility] 03/07/2025 11:4 1 PM CDT us Wesly Steve MD LABORATORY Final Result Performing Organization Address City/[facility]/ZIP Co de Phone Number [facility] [address] [place] [address], [place] [phone] * (ABNORMAL) C-REACTIVE PROTEIN (03/07/2025 11:41 PM CDT) C-REACTIVE PROTEIN 2.96(H) <0.80 mg/dL 03/08/2025 12:47 AM CDT [facility] 03/07/2025 11:4 1 PM CDT us Wesly Steve MD LABORATORY Final Result Performing Organization Address [facility] Co de Phone Number [facility] [address] [place] [address], [place] [phone] * BLOOD SMEAR PERIPHERAL INTERP PHYS W/WRIT REPORT (03/07/2025 11:41 PM CDT) CBC PATHOLOGIST COMMENT SENT TO PATHOLOGIST FOR REVIEW 03/08/2025 3:04 PM CDT [facility] 03/07/2025 11:4 1 PM CDT us Wesly Steve MD LABORATORY Final Result Performing Organization Address [facility]/ZIP Co de Phone Number [facility] [address] [place] [address], [place] [phone] * FOLIC ACID SERUM (03/07/2025 11:41 PM CDT) FOLATE 5.2 3.1 - 17.5 NG/ML 03/08/2025 12:35 AM CDT [facility] 03/07/2025 11:4 1 PM CDT Wesly Steve MD LABORATORY Final Result Performing Organization Address City/[facility] Co de Phone Number [facility] [address] [place] [address], [phone] * (ABNORMAL) THYROXINE, FREE (FT4) (03/07/2025 11:41 PM CDT) FREE T4 1.55(H) 0.76 - 1.46 NG/DL 03/08/2025 1:05 AM CDT [facility] 03/07/2025 11:4 1 PM CDT Wesly Steve MD LABORATORY Final Result Performing Organization Address [facility] de Phone Number [facility] [address] [place] [address], [place] [phone] * Pathology (03/07/2025 12:00 AM CDT) PATHOLOGY [facility] Department of Laboratory Medicine [address] [place] [address] , extension [phone] Pathology Report Peripheral Smear Report Name: IVETH BOOGIE Specimen #: [id number] Age: 6 1965 (Age: 60) Location: 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 [id number] testing is pending at the time of [...] Interpretation and sign out were performed at [address], [address] [place] [address]. [facility] 03/07/2025 03/08/2025 7:5 2 AM CDT Comment:Peripheral blood us Wesly Steve MD PATHOLOGY/CYTOLOGY ORDERABLES F inal Result [facility] [address] [place] [address], [phone] * PROTIME/INR, VENOUS (01/26/2025 3:25 PM CDT) PROTIME 11.9 9.4 - 12.5 SEC 01/26/2025 3:40 PM CDT [facility] INR 1.0 0.8 - 1.0 01/26/2025 3:40 PM CDT [facility] 01/26/2025 3:25 PM CDT Bharat Young DO LABORATORY Final Result [facility] [address] [place] [address], [place] [phone] from Last 3 Months Insurance MEDICAID MEDICARE Advance Directives * Full Code (Latest Code Status on File) Date Activated Date Inactivated Comments 03/07/2025 10:49 PM 03/12/2025 8:04 PM Care Teams Director Supply Relationship Specialty Start Date End Date Reagan Fonseca MD [address] [place] [address] PCP - General FAMILY PRACTICE 01/26/25
--- OUTSIDE RECORDS SUMMARY | 2025-03-27 11:33 | XMS_ITS ---
Author Organization Unknown Address [address] [place] [phone] Phone Care Team Providers Care Paraplanner Name Role Phone JOHAN SULLIVAN Attending Unavailable Immunization Immunization Date Status Additional Notes Code Code System Tdap 03/26/2021 Completed 115 CVX Results CBC W/ DIFF - Collect Date/T sarah: 01/08/2025 13:23 [facility] ID: [id number] [address] [place], [place], [phone] LOINC: 10904-9 Test Value Unit Reference Range Code Code [...] H=36.0 L PLATELETS 43 10^3uL L=100 H=400 67574-0 LOINC L RDW 16.1 % L=11.7 H=15.5 H %GRAN L=40.0 H=70.0 59069-7 LOINC %LYMPH L=20.0 H=45.0 736-9 LOINC %MONO L=2.0 H=10.0 75958-6 LOINC %EOS L=0.0 H=6.0 713-8 LOINC %BASO L=0.0 H=3.0 706-2 LOINC #NEUT L=1.9 H=7.6 03931-2 LOINC #LYMPH L=0.9 H=4.9 12288-8 LOINC #MONO L=0.1 H=0.9 71782-5 LOINC #EOS L=0.0 H=0.6 712-0 LOINC #BASO L=0.00 H=0.10 41183-2 LOINC #IM GRANS L=0.0 H=7.0 50889-0 LOINC %IM GRANS L=0.0 H=5.0 35984-9 LOINC %NRB L=0.0 H=0.2 19370-7 LOINC #NRB L=0.000 H=0.012 17416-9 LOINC MANUAL DIFF SEE BELOW A SEG [...] L=0 H=0 BLASTS 0 % L=0 H=0 41215-4 LOINC PANDA LYMPHS 0.00 % L=0.00 H=5.00 SMUDGE CELLS 0 % L=0 H=0 NRBC 0.0 % L=0.0 H=0.0 PLTS DECREASED NEUT # 0.7 10^3uL L=1.9 H=7.6 LL LYMPH # 1.2 10^3uL L=0.9 H=4.9 MONO # 0.0 10^3uL L=0.1 H=0.9 L EOS # 0.1 10^3uL L=0.0 H=0.6 712-0 LOINC BASO # 0.0 10^3uL L=0.0 H=0.1 20890-4 LOINC RBC MORPH NOT INDICATED COMPREHENSIVE METABOLIC PANE L - Collect Date/Time: 01/08/2025 13:23 [facility] ID: [id number] [address] [place], [place], [phone] LOINC: 74428-8 Test Value Unit Reference Range Code Code [...] 2028-9 LOINC ANION GAP 10 L=10 H=20 54605-5 LOINC OSMOLALITY 288 mOs/kG L=280 H=296 13398-8 LOINC BUN/CREAT 13.3 3097-3 LOINC CALCIUM 8.9 mg/dL L=8.3 H=10.5 76263-2 LOINC AST 23 U/L L=15 H=46 1920-8 LOINC ALT 15 U/L L=9 H=72 1742-6 LOINC ALKALINE PHOS 61 U/L L=38 H=126 6768-6 LOINC TOTAL BILI 0.3 mg/dL L=0.2 H=1.3 1975-2 LOINC ALBUMIN 3.9 G/dL L=3.5 H=5.0 1751-7 LOINC TOTAL PROTEIN 7.6 g/L L=6.3 H=8.2 2885-2 LOINC A/G RATIO 1.1 92937-1 LOINC AGE 59 22909-5 LOINC eGFR NON-AFR 69 ml/min eGFR AFR AMER 83 ml/min Social History Type Status Start Date End Date Code Code Syst em Smoking History Unknown if ever smoked [address] Sex Female Hospital Discharge Instructions Should you have any questions prior to discharge, please contact a member of your healthcare team. If you have left the hospital and have any questions, please contact your primary care physician. Reason For Referral No Data Found Plan of Treatment Picc Line Removal 03/27/2025 PICC Line Placement 03/27/2025 US Venous Right UE ([id number]) 03/27/2025 Encounters Encounter Diagnosis Start Date Code Code Sys tem Myelodysplastic syndrome, unspecified 01/08/2025 SNOMED-CT Personal Care Team Section Performer Name Performer Role Active Date Inactive LAURIE Hidalgo PCP - Primary care physician
--- OUTSIDE RECORDS SUMMARY | 2025-03-27 11:34 | XMS_ITS ---
Author Organization Unknown Address [address] [place] [phone] Phone Care Team Providers Care Tax Accounting Manager Name Role Phone PIPPA BURCIAGAWade Attending Unavailable JOHAN SULLIVAN Primary Unavailable Immunization Immunization Date Status Additional Notes Code Code System Tdap 03/26/2021 Completed 115 CVX Results CBC W/ DIFF - Collect Date/T saarh: 01/23/2025 14:13 [facility] ID: [id number] [address] [place] [address], [phone] LOINC: 82255-5 Test Value Unit Reference Range Code Code [...] H=36.0 L PLATELETS 32 10^3uL L=100 H=400 64859-2 LOINC L RDW 17.1 % L=11.7 H=15.5 H %GRAN L=40.0 H=70.0 79939-2 LOINC %LYMPH L=20.0 H=45.0 736-9 LOINC %MONO L=2.0 H=10.0 62238-1 LOINC %EOS L=0.0 H=6.0 713-8 LOINC %BASO L=0.0 H=3.0 706-2 LOINC #NEUT L=1.9 H=7.6 19404-6 LOINC CALLED TO: CHRISTOPH BillingsleyHONORIO AT: 1448 01/23/25 BY: SDK #LYMPH L=0.9 H=4.9 70127-9 LOINC #MONO L=0.1 H=0.9 52440-3 LOINC #EOS L=0.0 H=0.6 712-0 LOINC #BASO L=0.00 H=0.10 82494-9 LOINC #IM GRANS L=0.0 H=7.0 75506-7 LOINC %IM GRANS L=0.0 H=5.0 85558-8 LOINC %NRB L=0.0 H=0.2 89207-6 LOINC #NRB L=0.000 H=0.012 12568-9 LOINC MANUAL DIFF SEE BELOW A SEG [...] L=0 H=0 BLASTS 0 % L=0 H=0 52553-4 LOINC PANDA LYMPHS 10.00 % L=0.00 H=5.00 H SMUDGE CELLS 0 % L=0 H=0 NRBC 0.0 % L=0.0 H=0.0 PLTS DECREASED NEUT # 0.6 10^3uL L=1.9 H=7.6 LL LYMPH # 1.0 10^3uL L=0.9 H=4.9 MONO # 0.1 10^3uL L=0.1 H=0.9 EOS # 0.1 10^3uL L=0.0 H=0.6 712-0 LOINC BASO # 0.0 10^3uL L=0.0 H=0.1 14888-5 LOINC RBC MORPH NOT INDICATED COMPREHENSIVE METABOLIC PANE L - Collect Date/Time: 01/23/2025 14:13 [facility] ID: [id number] [address] [place], [place], [id number] LOINC: 90029-2 Test Value Unit Reference Range Code Code [...] 2028-9 LOINC ANION GAP 9 L=10 H=20 26523-0 LOINC L OSMOLALITY 291 mOs/kG L=280 H=296 48018-1 LOINC BUN/CREAT 13.8 3097-3 LOINC CALCIUM 8.7 mg/dL L=8.3 H=10.5 62056-5 LOINC AST 20 U/L L=15 H=46 1920-8 LOINC ALT 12 U/L L=9 H=72 1742-6 LOINC ALKALINE PHOS 71 U/L L=38 H=126 6768-6 LOINC TOTAL BILI 0.2 mg/dL L=0.2 H=1.3 1975-2 LOINC ALBUMIN 3.7 G/dL L=3.5 H=5.0 1751-7 LOINC TOTAL PROTEIN 6.8 g/L L=6.3 H=8.2 2885-2 LOINC A/G RATIO 1.2 66439-6 LOINC AGE 59 72369-4 LOINC eGFR NON-AFR 79 ml/min eGFR AFR AMER 96 ml/min BB ABO AND RH TYPE - Collect Date/Time: 01/23/2025 14:13 [facility] ID: [id number] [address] [place], [place], [phone] LOINC: 46982-2 Test Value Unit Reference Range Code Code System Flag ABO TYPE A 883-9 LOINC RH TYPE POSITIVE BB RETYPE ABO AND RH TYPE - Collect Date/Time: 01/23/2025 14:13 [facility] ID: [id number] [address] [place], [place], [phone] LOINC: 98297-0 Test Value Unit Reference Range Code Code System Flag ABO TYPE A 883-9 LOINC RH TYPE POSITIVE Social History Type Status Start Date End Date Code Code Syst em Smoking History Unknown if ever smoked [id number] Sex Female Hospital Discharge Instructions Should you have any questions prior to discharge, please contact a member of your healthcare team. If you have left the hospital and have any questions, please contact your primary care physician. Reason For Referral No Data Found Plan of Treatment Picc Line Removal 03/27/2025 PICC Line Placement 03/27/2025 US Venous Right UE ([id number]) 03/27/2025 Encounters Encounter Diagnosis Start Date Code Code Sys tem Myelodysplastic syndrome, unspecified 01/23/2025 SNOMED-CT Personal Care Team Section Performer Name Performer Role Active Date Inactive LAURIE Hidalgo PCP - Primary care physician
--- OUTSIDE RECORDS SUMMARY | 2025-03-27 11:34 | XMS_ITS ---
Author Organization Unknown Address [address] [place] [phone] Phone Care Team Providers Care Supervisor Advertising Dispatch Clerks Name Role Phone PIPPA KNOX Attending Unavailable JOHAN SULLIVAN Primary Unavailable Immunization Immunization Date Status Additional Notes Code Code System Tdap 03/26/2021 Completed 115 CVX Results US VENOUS RIGHT UE - Complet ed: 03/27/2025 09:54 LOINC: 55406-4 \TM00\\12PI\\DRAo\\BM09\ \MRHo\ [address] [address] ---------NAME--------- NUMBER SEX AGE ADMIT DISC. XRAY# F/C TYPE CHUYITA TONY [id number] F 60 03/27/25 37938 MB O/P DATE OF : 1965 M/R# [id number] PH#: [phone] RM 26-IF \MRHx\ LOCATION: TRANSCRIBED: 03/27/25 10:[place] [address] COMPLETED:03/27/25 9:54 [facility] 95[address] {REASON-US VENOUS RIGHT UE: MTELODYSPIASTIC SYNDROME PHYSICIAN: PIPPA MO R A D I O L O G Y R E P O R T RIGHT Upper Extremity Venous Duplex Clinical History: MTELODYSPIASTIC SYNDROME Comparison: None Findings: Duplex Doppler evaluation of the venous system of the RIGHT lower neck and upper extremity including color Doppler and spectral/pulsed waveform analysis was performed. The internal jugular vein demonstrates appropriate compressibility and waveform variability. The subclavian vein is patent on color Doppler evaluation without intraluminal thrombus and demonstrates waveform variability. The visualized portion of the brachiocephalic vein is patent on color Doppler evaluation without intraluminal thrombus and demonstrates waveform variability. Loss of compressibility of the axillary vein and basilic vein. The brachial veins demonstrate appropriate compressibility and patency on Doppler evaluation. The basilic vein demonstrates appropriate compressibility and patency on Doppler evaluation. The cephalic vein demonstrates appropriate compressibility and patency on Doppler evaluation. Impression: Thrombus in the right axillary vein and basilic vein. Critical Result: DVT Findings discussed with LISETTE DAS at 03/27/2025 08:23 AM, and acknowledged receipt and understanding of the findings. .. If clinical concern/symptoms persist or worsen, short-interval follow-up study is suggested. NTIST IMMUNOLOGY \ITLo\ \UNDo\ \UNDx\ \ITLx\ Reviewed and Electronically Signed by: Ivan Acosta MD Signed Date: 03/27/25 10:23 03/27/25.1026.AJH.to JOHAN via fax Social History Type Status Start Date End Date Code Code Syst em Smoking History Unknown if ever smoked [id number] Sex Female Vital Signs Vital Sign Value Unit Willacy Value Willacy Unit Date/Time Recent/Initial? Code Code System Body Mass Index 32.26 kg/m2 03/27/2025 08:53 Initial 29723 -5 LOINC Systolic Blood Pressure 131 mm[Hg] 03/27/2025 08:52 Initial 8480- 6 LOINC Diastolic Blood Pressure 67 mm[Hg] 03/27/2025 08:52 Initial 8462- 4 LOINC Body Surface Area 2.10 m2 03/27/2025 08:53 Initial 3140- 1 LOINC Height 170.180 0 cm 67.00 in 03/27/2025 08:53 Initial 8302- 2 LOINC O2 Saturation 95 % 2024 08:52 Initial 96822 -5 LOINC Pulse 77.0 /min 03/27/2025 08:52 Initial 8867- 4 LOINC Respiration 22 /min 03/27/20 08:52 Initial 9279- 1 LOINC Temperature 36.7 Freda 98.1 F 03/27/20 08:52 Initial 8310- 5 LOINC Weight 93.44 kg 206.00 lbs 03/27/2025 08:53 Initial 59688 -7 INC Hospital Discharge Instructions Should you have any questions prior to discharge, please contact a member of your healthcare team. If you have left the hospital and have any questions, please contact your primary care physician. Reason For Referral No Data Found Plan of Treatment Picc Line Removal 03/27/2025 PICC Line Placement 03/27/2025 US Venous Right UE ([id number]) 03/27/2025 Personal Care Team Section Performer Name Performer Role Active Date Inactive Da LAURIE Rosa PCP - Primary care physician Imaging Narrative Notes [facility] 03/27/2025 10:26 [facility] [address] [place] [address] ---------NAME--------- NUMBER SEX AGE ADMIT DISC. XRAY# F/C TYPE CHUYITA TONY [id number] F 60 03/27/25 41447 MB O/P DATE OF : 1965 M/R# [id number] PH#: [phone] 26-IF LOCATION: TRANSCRIBED: 03/27/25 10:23 [place] [address] COMPLETED:03/27/25 9:54 [facility] [id number] {REASON-US VENOUS RIGHT UE: MTELODYSPIASTIC SYNDROME PHYSICIAN: PIPPA MO RADIOLOGY REPORT RIGHT Upper Extremity Venous Duplex Clinical History: MTELODYSPIASTIC SYNDROME Comparison: None Findings: Duplex Doppler evaluation of the venous system of the RIGHT lower neck and upper extremity including color Doppler and spectral/pulsed waveform analysis was performed. The internal jugular vein demonstrates appropriate compressibility and waveform variability. The subclavian vein is patent on color Doppler evaluation without intraluminal thrombus and demonstrates waveform variability. The visualized portion of the brachiocephalic vein is patent on color Doppler evaluation without intraluminal thrombus and demonstrates waveform variability. Loss of compressibility of the axillary vein and basilic vein. The brachial veins demonstrate appropriate compressibility and patency on Doppler evaluation. The basilic vein demonstrates appropriate compressibility and patency on Doppler evaluation. The cephalic vein demonstrates appropriate compressibility and patency on Doppler evaluation. Impression: Thrombus in the right axillary vein and basilic vein. Critical Result: DVT Findings discussed with LISETTE DAS at 03/27/2025 08:23 AM, and acknowledged receipt and understanding of the findings. .. If clinical concern/symptoms persist or worsen, short-interval follow-up study is suggested. NTIST IMMUNOLOGY Reviewed and Electronically Signed by: Ivan Acosta MD Signed Date: 03/27/25 10:23 03/27/25.1026.AJ.david PRADO via fax
--- OUTSIDE RECORDS SUMMARY | 2025-03-27 11:35 | XMS_ITS ---
Author Organization Unknown Address [address] [place] [phone] Phone Care Team Providers Care Air Carrier Operations Inspector Name Role Phone JOHAN SULLIVAN Attending Unavailable Immunization Immunization Date Status Additional Notes Code Code System Tdap 03/26/2021 Completed 115 CVX Results US GALLBLADDER - Completed: 12/25/2024 12:00 LOINC: \TM00\\12PI\\DRAo\\BM09\ \MRHo\ [address] [address] ---------NAME--------- NUMBER SEX AGE ADMIT DISC. XRAY# F/C TYPE CHUYITA TONY [id number] F 59 12/25/24 12/25/24 50374 MBJ O/P DATE OF : 1965 M/R# [id number] PH#: [phone] RM \MRHx\ LOCATION: TRANSCRIBED: 12/25/24 13:39 US GALLBLADDER 47788 COMPLETED:12/25/24 12:00 APC [id number] {REASON-US ABD: ABDOMINAL PAIN PHYSICIAN: JOHAN R [...] of gallstones or acute cholecystitis. Hepatic steatosis. UTER OPERATIONS SPECIALIST \ITLo\ \UNDo\ \UNDx\ \ITLx\ Reviewed and Electronically Signed by: Ivan Acosta MD Signed Date: 12/25/24 13:39 Social History Type Status Start Date End Date Code Code Syst em Smoking History Unknown if ever smoked [id number] Sex Female Hospital Discharge Instructions Should you have any questions prior to discharge, please contact a member of your healthcare team. If you have left the hospital and have any questions, please contact your primary care physician. Reason For Referral No Data Found Plan of Treatment Picc Line Removal 03/27/2025 PICC Line Placement 03/27/2025 US Venous Right UE ([id number]) 03/27/2025 Encounters Encounter Diagnosis Start Date Code Code Sys tem Fatty (change of) liver, not elsewhere classified 04/2025 SNOMED-CT Personal Care Team Section Performer Name Performer Role Active Date Inactive LAURIE Hidalgo PCP - Primary care physician Imaging Narrative Notes [facility] 12/25/2024 13:42 [facility] [address] [place] [address] ---------NAME--------- NUMBER SEX AGE ADMIT DISC. XRAY# F/C TYPE CHUYITA TONY [id number] F 59 12/25/24 12/25/24 [address] [facility] O/P DATE OF : 1965 M/R# [id number] #: [phone] LOCATION: TRANSCRIBED: 12/25/24 13:39 US GALLBLADDER 15687 COMPLETED:12/25/24 12:00 APC [id number] {REASON-US ABD: ABDOMINAL PAIN PHYSICIAN: JOHAN RADIOLOGY [...] of gallstones or acute cholecystitis. Hepatic steatosis. UTER OPERATIONS SPECIALIST Reviewed and Electronically Signed by: Ivan Acosta MD Signed Date: 12/25/24 13:39
[2025-03-27 11:36] VITALS: BMI 31.4
[2025-03-27 11:45] VITALS: BP 130/72; PULSE 80; RESP 14; TEMP 36.6; O2SAT 96
[2025-03-27] MEDS: SODIUM CHLORIDE 0.9% IV PUSH (11:45)
[2025-03-27] MEDS: ONDANSETRON IV PUSH (11:45)
[2025-03-27 11:48] LABS: Hematocrit 22.7 % (35.0-49.0); Hemoglobin 7.0 g/dL (12.0-15.0); Mean Corpuscular HGB Conc 30.8 g/dL (32-36); Mean Corpuscular Hemoglobin 28.5 pg (27.0-31.0); Mean Corpuscular Volume 92.3 fL (78.0-102.0); Platelet Count Result 172 K/mm3 (150-420); Red Blood Count 2.46 M/mm3 (4.20-5.40)
[2025-03-27 11:53] LABS: White Blood Count 0.7 K/mm3 (4.8-10.8)
[2025-03-27] MEDS: SODIUM CHLORIDE 0.9% IVPB (12:14)
[2025-03-27] MEDS: DECITABINE IVPB (12:14)
[2025-03-27 13:22] VITALS: BP 139/74; PULSE 78; RESP 16; TEMP 36.6; O2SAT 96
[2025-03-27] MEDS: HEPARIN SODIUM LOCK FLUSH 500 UNITS/5 ML SYRINGE IV PUSH (13:27)
--- NOTE | 2025-03-27 13:27 | PC.NURSE ---
Tolerated treatment well. SEE MAR/patient care notes.
== END 2025-03-27 11:29 | disposition home or self-care (01) ==
LOC: CHSLAB 11:31 → CHSTREATRM 11:31
PROVIDERS: PCP Family Medicine; Visit Provider Internal Medicine Hematology
DX: D46.21 Refractory anemia with excess of blasts 1 (principal)
CPT/HCPCS: 36415; 36591; 85027; 96367; 96413; J0894; J2405; J7050

== ENCOUNTER 2025-03-28 09:38 | Outpatient (CLI) | payer MEDICARE, SELFPAY ==
[2025-03-28] VITALS (7 sets, daily range): BP systolic 132–143; BP diastolic 69–86; PULSE 74–84; RESP 14; TEMP 36.6–36.7; O2SAT 96–97; BMI 31.0
--- OUTSIDE RECORDS SUMMARY | 2025-03-28 09:44 | XMS_ITS | Clinical Summary ---
Author Organization [facility] Address [facility] [place] [address] Care Team Providers Care Course Instructor Name Role Phone Reagan Fonseca MD Primary Care Provider [phone] Allergies Active Allergy Reactions Criticality Noted Date [...] - 03/12/2025 5:58 PM CDT Hospital Encounter [facility] [address] [place] [address] Hansel Strickland MD Sheikh, MD Kory Alonso, MD Marcelle Discharge Disposition: Home or Self Care (Routine Discharge) 03/07/2025 Travel 01/26/2025 2:50 PM CDT - 01/26/2025 8:40 PM CDT Emergency [facility] [place] [address] Bharat Young, Medical Problem Discharge Disposition: Home [...] from your doctor or pharmacy? Rarely 03/08/2025 [facility] Utilities Answer Date Recorded In the past 12 months has e [employer], or water [employer] threatened to shut off services in your [...] How often do you attend caodaism or temple serv ices? Never 03/08/2025 Do you belong [...] medical care, and heating? Patient declined 03/08/2025 [facility] - Occupational Stress Questionnaire [...] any time in the past 12 m [facility], were you homeless or living in a fci (including now)? No 03/08/2025 Comments No Sex [...] SERUM Routine 03/07/2025 11:4 1 PM CDT [id number] ACT W/RFLX INHIBITOR Routine 03/07/2025 11:41 PM [...] 70 - 109 03/12/2025 4:08 PM CDT [facility] 03/12/2025 4:04 PM CDT Marcelle Rich MD POCT ORDERABLES - DEVICE Final R esult [facility] [address] [place] [address], [id number] * TRANSFUSE PLATELET PHERESIS (03/12/2025 1:41 PM CDT) Only the most recent of4 resultswithin the time period is included. Phani Sarmiento MD NURSING TREATMENT ORDERAB LES - BLOOD ADMIN Final Result * TYPE & SCREEN (03/12/2025 11:15 AM CDT) Only the most recent of3 resultswithin the time period is included. UNITS ORDERED 1 03/12/2025 11:01 AM CDT [facility] ABO/RH A POSITIVE 03/12/2025 1:38 PM CDT [facility] ANTIBODY SCREEN NEGATIVE 1:38 PM CDT [facility] SAMPLE EXPIRATION 03/15/2025,2359 03/12/2025 12:56 PM CDT [facility] BLOOD UNIT NUMBER [id number] 03/12/2025 1:38 PM CDT [facility] PRODUCT: PC LEUKOPOOR 03/12/2025 1:38 PM CDT [facility] UNIT DIVISION 00 03/12/2025 1:38 PM CDT [facility] BLOOD UNIT STATUS TRANSFUSED,FINAL 03/13/2025 6:44 AM CDT [facility] ISSUE DATE/TIME [id number] 025 6:44 AM CDT [facility] PRODUCT CODE [id number] 03/13/2025 6:44 AM CDT [facility] ABO/RH Unit A POS 03/13/2025 6:44 AM CDT [facility] ABO/RH UNIT ISBT CODE 6200 03/13/2025 6:44 AM CDT [facility] BLOOD UNIT EXPIRATION DATE [id number] 03/13/2025 6:44 AM CDT [facility] TRANSFUSION STATUS OK TO TRANSFUSE 03/12/2025 1:38 PM CDT [facility] CROSSMATCH COMPATIBLE-EXM 03/12/2025 1:38 PM CDT [facility] 03/12/2025 11:1 5 AM CDT Marcelle Rich MD BLOOD BANK TEST ORDERABLES Final Result [facility] [address] [place] [address], [id number] * ORDER PLATELET PHERESIS, 1 Units (03/12/2025 6:46 AM CDT) Only the most recent of3 resultswithin the time period is included. UNITS ORDERED 1 03/12/2025 6:46 AM CDT [facility] BLOOD UNIT NUMBER [id number] 03/12/2025 9:57 AM CDT [facility] PRODUCT: PLT PHERESIS LEUKORED 7D BAG 2 03/12/2025 9:57 AM CDT [facility] UNIT DIVISION 00 03/12/2025 9:57 AM CDT [facility] BLOOD UNIT STATUS TRANSFUSED,FINAL 03/13/2025 6:44 AM CDT [facility] ISSUE DATE/TIME [id number] 025 6:44 AM CDT [facility] PRODUCT CODE [id number] 03/13/2025 6:44 AM CDT [facility] ABO/RH Unit AB POS 03/13/2025 6:44 AM CDT [facility] ABO/RH UNIT ISBT CODE 8400 03/13/2025 6:44 AM CDT [facility] BLOOD UNIT EXPIRATION DATE [id number] 03/13/2025 6:44 AM CDT [facility] TRANSFUSION STATUS OK TO TRANSFUSE 03/12/2025 9:57 AM CDT [facility] 03/12/2025 6:46 AM CDT Phani Sarmiento MD BLOOD BANK PRODUCT ORDERA BLES Final Result [facility] [address] [place] [address], [id number] * (ABNORMAL) CBC W/DIFF AUTOMATED (03/12/2025 3:50 AM CDT) Only the most recent of7 resultswithin the time period is included. WBC 0.54(L) 4.00 - 10.80 x10'3/uL 03/12/2025 4:53 AM CDT [facility] RBC 2.40(L) 4.10 - 5.40 x10'6/uL 03/12/2025 4:53 AM CDT [facility] HGB 7.1(L) 12.0 - 16.0 G/DL 03/12/2025 4:53 AM CDT [facility] HCT 21.7(L) 36.0 - 47.0 % 03/12/2025 4:53 AM CDT [facility] MCV 90.4 78.0 - 100.0 FL 03/12/2025 4:53 AM CDT [facility] MCH 29.6 27.0 - 31.0 PG 03/12/2025 4:53 AM CDT [facility] MCHC 32.7(L) 33.0 - 36.0 G/DL 03/12/2025 4:53 AM CDT [facility] RDW 17.0(H) 11.5 - 14.5 % 03/12/2025 4:53 AM CDT [facility] PLT 9(LL) 150 - 350 x10'3/uL 03/12/2025 6:54 AM CDT [facility] Comment: This result has been called to [id number] by [id number] on 03/12/2025 05:55:00, and has been read back. DIFFERENTIAL TYPE MANUAL DIFFERENTIAL 03/12/2025 6:57 AM CDT [facility] NRBC % 2.0 % 03/12/2025 6:57 AM CDT [facility] SEG NEUTROPHILS 29 % 6:57 AM CDT [facility] LYMPHOCYTES 63 % 03/12/2025 6:57 AM CDT [facility] MONOCYTES 2 % 03/12/2025 6:57 AM CDT [facility] EOSINOPHILS 2 % 03/12/2025 6:57 AM CDT [facility] BASOPHILS 0 % 03/12/2025 6:57 AM CDT [facility] BANDS 2 % 03/12/2025 6:57 AM CDT [facility] ABS. NEUTROPHILS 0.17(LL) 1.60 - 8.30 x10'3/uL 03/12/2025 6:57 AM CDT [facility] Comment: This patient has had a critical value result for this test called within the past 3 months. ABS. LYMPHOCYTES 0.35(L) 0.80 - 4.70 x10'3/uL 03/12/2025 6:57 AM CDT [facility] ABS. MONOCYTES 0.01 0.00 - 1.50 x10'3/uL 03/12/2025 6:57 AM CDT [facility] ABS. EOSINOPHILS 0.01 0.00 - 0.40 x10'3/uL 03/12/2025 6:57 AM CDT [facility] ABS. BASOPHILS 0.00 0.00 - 0.20 x10'3/uL 03/12/2025 6:57 AM CDT [facility] ABS. NUCLEATED RBC'S 0.01 0.00 - 0.01 x10'3/uL 03/12/2025 6:57 AM CDT [facility] RBC MORPHOLOGY SLIDE REVIEWED 2024 6:57 AM CDT [facility] ANISO SLIGHT 03/12/2025 6:57 AM CDT [facility] POIKLO SLIGHT 03/12/2025 6:57 AM CDT [facility] OVALOCYTES PRESENT 03/12/2025 6:57 AM CDT [facility] TEAR DROP PRESENT 03/12/2025 6:57 AM CDT [facility] JOVANNA PRESENT 03/12/2025 6:57 AM CDT [facility] PLT EST. DECREASED 03/12/2025 6:57 AM CDT [facility] 03/12/2025 3:50 AM CDT us Marcelle Rich MD LABORATORY Final Result [facility] [address] [place] [address], [id number] * (ABNORMAL) BASIC METABOLIC PANEL (03/11/2025 9:42 AM CDT) Only the most recent of5 resultswithin the time period is included. SODIUM S/P/B 139 136 - 145 MMOL/L 03/11/2025 10:19 AM CDT [facility] POTASSIUM S/P/B 3.4(L) 3.5 - 5.1 MMOL/L 03/11/2025 10:19 AM CDT [facility] CHLORIDE S/P/B 106 97 - 115 MMOL/L 03/11/2025 10:19 AM T [facility] CO2 27.1 21.0 - 32.0 MMOL/L 03/11/2025 10:19 AM T [facility] GLUCOSE 243(H) 74 - 106 MG/DL 03/11/2025 10:19 AM T [facility] BUN 15 7 - 18 MG/DL 03/11/2025 10:19 AM T [facility] CREATININE S/P/B 0.90 0.55 - 1.02 MG/DL 03/11/2025 10:19 AM T [facility] CALCIUM S/P/B 8.6 8.5 - 10.1 MG/DL 03/11/2025 10:19 AM [facility] ANION GAP 5.9 2.0 - 10.0 MMOL/L 03/11/2025 10:19 AM T [facility] OSMOLALITY (CALC) 297 MOSM/KG 025 10:19 AM [facility] Comment:REFERENCE RANGE NOT ESTABLISHED GFR ESTIMATE 74(L) >90 ML/MIN/1. 73 M2 03/11/2025 10:19 AM T [facility] GFR NOTES GFR REFERENCE S: 03/11/2025 10:19 AM T [facility] Comment: THE ESTIMATED GFR IS [...] MD LABORATORY Final Result Performing Organization Address [facility] de Phone Number [facility] [address] [place] [address], [id number] * PHOSPHORUS, INORGANIC PHOSPHATE (03/10/2025 2:41 AM CDT) PHOSPHORUS 3.5 2.5 - 4.9 MG/DL 03/10/2025 3:34 AM CDT [facility] 03/10/2025 2:41 AM CDT us Marcelle Rich MD LABORATORY Final Result Performing Organization Address [facility] de Phone Number [facility] [address] [place] [address], [place] [phone] * MAGNESIUM (03/10/2025 2:41 AM CDT) MAGNESIUM 1.9 1.6 - 2.6 MG/DL 03/10/2025 3:34 AM CDT [facility] 03/10/2025 2:41 AM CDT us Marcelle Rich MD LABORATORY Final Result Performing Organization Address [facility] de Phone Number [facility] [address] [place] [address], [id number] * (ABNORMAL) Blood gas, venous (03/09/2025 5:27 PM CDT) PH VENOUS 7.39 7.32 - 7.42 03/09/2025 5:37 PM CDT [facility] PCO2 VENOUS 47.7 41.0 - 51.0 MMHG 03/09/2025 5:37 PM CDT [facility] PO2 VENOUS 31.9 25.0 - 40.0 MM HG 03/09/2025 5:37 PM CDT [facility] BICARB VENOUS 28.0 24 - 28 MMOL/L 03/09/2025 5:37 PM CDT [facility] TOTAL CO2 VENOUS 29.5(H) 25.0 - 29.0 MMOL/L 03/09/2025 5:37 PM CDT [facility] BASE EXCESS VENOUS 3.1(H) 0 - 2 MMOL/L 03/09/2025 5:37 PM CDT [facility] O2 SAT VENOUS 56 <75 % 03/09/2025 5:37 PM CDT [facility] 03/09/2025 5:27 PM CDT Marcelle Rich MD LABORATORY Final Result [facility] [address] [place] [address], [id number] * XR CHEST PORTABLE (03/08/2025 11:08 AM CDT) Anatomical Region Laterality Modality Chest Radiographic Aishwarya ging 03/08/2025 12:2 3 PM CDT Impressions 03/08/2025 12:24 PM CDT IMPRESSION: 1. Mild pulmonary vascular congestion. 2. No focal consolidation or pneumothorax. Ordered By: MARCELLE RICH Interpreted By: Bk Perez MD, 03/08/2025 12:23 PM Narrative 03/08/2025 12:24 PM CDT [facility] [address] [place], [place] [address] PROCEDURE: XR CHEST PORTABLE. 03/08/2025 11:06 AM. [...] Procedure Note Bk Perez MD - 03/08/2025 [facility] [address] [place], [place] [address] PROCEDURE: XR CHEST PORTABLE. 03/08/2025 11:06 AM. [...] CDT) TEST NAME: LEUKEMIA LYMPHOMA EVAL TEST [id number] 03/08/2025 1:46 PM CDT [facility] SPECIMEN TYPE PERIPHERAL BLOOD EDTA, ROOM TEMP 03/08/2025 1:46 PM CDT [facility] TEST RESULT: Flexitest 1 03/12/2025 11:42 AM CDT [employer] REGGIE VÁSQUEZ Comment: Flexitest 1 CLINICAL INFORMATION: [...] staining intensity, forward scatter and side scatter. Landis A - Granulocytes Marker Percentage CD2 1 CD3 0 CD4 0 CD5 0 CD7 1 CD8 0 CD10 87 CD11c 96 CD13 91 CD19 0 CD19+CD5+ 0 CD20 0 CD23 1 CD33 3 CD34 0 CD38 2 CD45 100 CD56+CD3- 2 CD64 0 CD117 0 HLA_DR 2 Mccracken CD19+ 0 Lambda CD19+ 0 K/L Ratio NA Landis B - Lymphocytes Marker Percentage CD2 66 CD3 62 CD4 42 CD5 60 CD7 53 CD8 19 CD10 2 CD11c 6 CD13 0 CD19 22 CD19+CD5+ 0 CD20 22 CD23 14 CD33 0 CD34 0 CD38 46 CD45 100 CD56+CD3- 13 CD64 0 CD117 0 HLA_DR 25 Mccracken CD19+ 10 Lambda CD19+ 9 K/L Ratio 1.11 This test was developed and its analytical performance characteristics have been determined by [facility], [place], [place]. It has not been cleared or approved by the U.S. Food and Drug Administration. This assay has been validated pursuant to the CLIA regulations and is used for clinical purposes. NUMBER OF MARKERS: 22 Test Performed by [facility], [employer] [facility], [address] [place], [place] Noe Hernandez M.D., Ph.D., Director of Laboratories , [facility] [id number] 03/08/2025 11:0 7 AM CDT us Almaz Hollins MD LABORATORY Final Result Performing Organization Address City/[facility] Co de Phone Number [employer] [address] , [place] [phone] [facility] [address] [place] [address], [place] [phone] [id number] * FLOW CYTOMETRY, PERIPHERAL BLD (03/08/2025 11:07 AM CDT) FLOW CYTOMETRY TEST SENT TO [facility]. RESULTS WILL DISPLAY REF LAB TEST RESULT UNDER MISC TAB WHEN FINALIZED. 03/08/2025 12:12 PM CDT [facility] 03/08/2025 11:0 7 AM CDT us Almaz Hollins MD LABORATORY Final Result Performing Organization Address [facility] Co de Phone Number [facility] [address] [place] [address], [place] [phone] * MISCELLANEOUS LAB TEST (03/08/2025 11:07 AM CDT) TEST NAME: HLA TYPING FOR PLATELETS, ALLOIMMUNIZATION 03/08/2025 8:04 AM CDT [facility] TEST RESULT: SEE BLOOD BANK FOR TESTING RESULTS 03/11/2025 7:37 AM CDT [facility] 03/08/2025 11:0 7 AM CDT us Almaz Hollins MD LABORATORY Final Result Performing Organization Address [facility] de Phone Number [facility] [address] [place] [address], [id number] * (ABNORMAL) RETICULOCYTE CT, AUTO (03/07/2025 11:43 PM CDT) Pathologist [facility] % RETICULOCYTE COUNT 0.3(L) 0.6 - 2.3 % 03/08/2025 1:02 AM CDT [facility] ABSOLUTE RETICULOCYTE 0.01(L) 0.02 - 0.10 x10'6/uL 03/08/2025 1:02 AM CDT [facility] IMMATURE RETIC FRACTION 5.1 3.0 - 15.9 % 03/08/2025 1:02 AM CDT [facility] RETIC HGB 37.7(H) 28.0 - 35.0 PG 03/08/2025 1:02 AM CDT [facility] 03/07/2025 11:4 3 PM CDT Wesly Steve MD LABORATORY Final Result Performing Organization Address [facility] de Phone Number [facility] [address] [place] [address], [id number] * (ABNORMAL) EBV (RHONDA CAMP VIRUS) AB PANEL COMPREHENSIVE (INCL. EARLY AG D AB) (03/07/2025 11:41 PM CDT) [facility] EBV EARLY ANTIGEN-D AB IGG 71.00(H) <9.00 U/mL 03/12/2025 7:03 PM CDT [employer] DAIJA COX Comment: The potential exists for cross-reactivity with HIV (Human Immunodeficiency Virus) which could cause a false positive EBV-EA result. U/mL Interpretation <9.00 Negative 9.00 - 10.99 Equivocal >10.99 Positive EBV VCA IGM <36.00 <36.00 U/mL 03/12/2025 7:03 PM CDT [employer] DAIJA COX Comment: U/mL Interpretation <36.00 Negative 36.00 - 43.99 Equivocal >43.99 Positive RHONDA BAR NUCLEAR ANTIGEN IGG 69.90(H) <18.00 U/mL 03/12/2025 7:03 PM CDT [employer] DAIJA COX Comment: U/mL Interpretation <18.00 Negative 18.00 - 21.99 Equivocal >21.99 Positive EBV VCA IGG 262.00(H) <18.00 U/mL 03/12/2025 7:03 PM CDT [employer] DAIJA COX Comment: U/mL Interpretation <18.00 Negative 18.00 - 21.99 Equivocal >21.99 Positive Test Performed by [facility], [employer] [facility], [address] [place] [address] Noe Hernandez M.D., Ph.D., Director of Laboratories , [facility] [id number] 03/07/2025 11:4 1 PM CDT Wesly Steve MD LABORATORY Final Result [facility] [phone], * [id number] ACT W/RFLX INHIBITOR (03/07/2025 11:41 PM CDT) [id number] ACTIVITY 0.79 0.68 - 1.63 IU/mL 03/10/2025 3:29 PM CDT [employer] DAIJA COX Comment: Activity levels below 0.10 IU/mL are seen in acquired and hereditary thrombotic thrombocytopenic purpura (TTP). Not all patients with TTP will exhibit low levels of RVARID56 activity with this assay, i.e., post bone marrow transplantation, drug-induced TTP, and mutations of [id number] at the CUB domain. Recent plasma exchange or immunosuppressive therapy may raise the observed activity levels. Mild decreases in [id number] activity are seen in a wide variety of conditions including metastatic cancer, neonates, serious infections and cirrhosis of the liver. For more information on this test, go to http://education.Simperium/faq/ATZ077 Test Performed by [facility], [employer] [facility], [address] [place] [address] Noe Hernandez M.D., Ph.D., Director of Laboratories , [facility] [id number] 03/07/2025 11:4 1 PM CDT Wesly Steve MD LABORATORY Final Result Performing Organization Address [facility]/ZIP Co de Phone Number [employer] [place] [address] [place], [place] , [place] [phone] * (ABNORMAL) PROCALCITONIN (PCT) (03/07/2025 11:41 PM CDT) PROCALCITONIN 2.85(H) 0.00 - 0.49 NG/ML 03/08/2025 1:14 PM CDT [facility] Comment: VALUES ABOVE 2.00 NG/ML ARE HIGHLY SUGGESTIVE OF SEPSIS OR OTHER SEVERE BACTERIAL INFECTION. 03/07/2025 11:4 1 PM CDT us Wesly Steve MD LABORATORY Final Result [facility] [address] [place] [address], [place] [phone] * (ABNORMAL) TSH W/REFLEX (03/07/2025 11:41 PM CDT) TSH 0.250(L) 0.358 - 3.740 uIU/ML 03/08/2025 12:47 AM CDT [facility] Comment: ASSAY PERFORMED BY CHEMILUMINESCENCE METHODOLOGY USING SIEMENS DIMENSION VISTA REAGENT. PATIENT RESULTS DETERMINED BY ASSAYS USING DIFFERENT MANUFACTURERS FOR METHODS MAY NOT BE COMPARABLE. 03/07/2025 11:4 1 PM CDT us Wesly Steve MD LABORATORY Final Result Performing Organization Address City/[facility]/ZIP Co de Phone Number [facility] [address] [place] [phone], [phone] * CMV DNA QUANT REAL TIME PCR (03/07/2025 11:41 PM CDT) Pathologist [facility] SPECIMEN SOURCE EDTA PLASMA 03/08/20 8:43 AM CDT [facility] CMV DNA QN PCR (BLD) Not Detected IU/mL 03/10/2025 6:53 PM CDT [facility] MacheenADRIAN LLY CMV DNA QUANT PCR (BLD) Not Detected log IU/mL 03/10/2025 6:53 PM CDT [facility] LINTONIP Fabrics[employer]RIAN LLY Comment: REFERENCE RANGE: NOT DETECTED For additional information, please refer to http://education.Cookapp.Enerkem/faq/CMVandEBVPCR (This link is being provided for informational/ educational purposes only.) Test Performed by [facility], [employer] [place] [place], [address] [place] [address] Noe Hernandez M.D., Ph.D., Director of Laboratories , [facility] [id number] 03/07/2025 11:4 1 PM CDT us Wesly Steve MD LABORATORY Final Result Performing Organization Address City/[facility]/ZIP Co de Phone Number [facility] [facility] [address], [place] [phone] [facility] [address] [place] [address], [place] [phone] [id number] * (ABNORMAL) IRON SATURATION PANEL (FE,IBC,%SAT) (03/07/2025 11:41 PM CDT) Pathologist [facility] IRON 53 50 - 170 MCG/DL 03/08/2025 12:47 AM CDT [facility] IRON BINDING CAPACITY 202(L) 250 - 450 MCG/DL 03/08/2025 12:47 AM CDT [facility] IRON SATURATION 26 % 12:47 AM CDT [facility] Comment:REFERENCE RANGE NOT ESTABLISHED 03/07/2025 11:4 1 PM CDT us Wesly Steve MD LABORATORY Final Result [facility] [address] [place] [address], [id number] * VITAMIN B-12 (03/07/2025 11:41 PM CDT) Pathologist [facility] VITAMIN B12 S/P/B 511 193 - 986 PG/ML 03/08/2025 12:35 AM CDT [facility] 03/07/2025 11:4 1 PM CDT us Wesly Steve MD LABORATORY Final Result [facility] [address] [place] [address], [id number] * SED RATE, ERYTHROCYTE (ESR,WSR) (03/07/2025 11:41 PM CDT) Pathologist [facility] ESR 15 0 - 20 MM/HR 03/08/2025 12:03 AM CDT [facility] 03/07/2025 11:4 1 PM CDT Wesly Steve MD LABORATORY Final Result [facility] [address] [place] [address], [id number] * (ABNORMAL) COMPREHENSIVE METABOLIC PANEL (03/07/2025 11:41 PM CDT) SODIUM S/P/B 137 136 - 145 MMOL/L 03/08/2025 12:47 AM CDT [facility] POTASSIUM S/P/B 3.4(L) 3.5 - 5.1 MMOL/L 03/08/2025 12:47 AM CDT [facility] CHLORIDE S/P/B 107 97 - 115 MMOL/L 03/08/2025 12:47 AM CDT [facility] CO2 24.5 21.0 - 32.0 MMOL/L 03/08/2025 12:47 AM CDT [facility] GLUCOSE 261(H) 74 - 106 MG/DL 03/08/2025 12:47 AM CDT [facility] BUN 8 7 - 18 MG/DL 03/08/2025 12:47 AM CDT [facility] CREATININE S/P/B 0.80 0.55 - 1.02 MG/DL 03/08/2025 12:47 AM CDT [facility] CALCIUM S/P/B 8.0(L) 8.5 - 10.1 MG/DL 03/08/2025 12:47 AM CDT [facility] BILIRUBIN TOTAL S/P/B 0.4 0.2 - 1.0 MG/DL 03/08/2025 12:47 AM CDT [facility] ALKALINE PHOSPHATASE S/P/B 71 46 - 118 U/L 03/08/2025 12:47 AM CDT [facility] AST 43(H) 15 - 37 U/L 03/08/2025 12:47 AM CDT [facility] ALT 46 13 - 56 U/L 03/08/2025 12:47 AM T [facility] TOTAL PROTEIN S/P/B 6.5 6.4 - 8.2 G/DL 03/08/2025 12:47 AM [facility]T [facility] ALBUMIN S/P/B 2.9(L) 3.4 - 5.0 G/DL 03/08/2025 12:47 AM CDT [facility] ANION GAP 5.5 2.0 - 10.0 MMOL/L 03/08/2025 12:47 AM T [facility] OSMOLALITY (CALC) 291 MOSM/KG 025 12:47 AM T [facility] Comment:REFERENCE RANGE NOT ESTABLISHED GFR ESTIMATE 85(L) >90 ML/MIN/1. 73 M2 03/08/2025 12:47 AM T [facility] GFR NOTES GFR REFERENCE S: 03/08/2025 12:47 AM [facility] Comment: [...] us Wesly Steve MD LABORATORY Final Result [facility] [address] [place] [address], [place] [phone] * (ABNORMAL) LDH, LACTATE DEHYDROGENASE (03/07/2025 11:41 PM CDT) Pathologist [facility] LDH 249(H) 84 - 246 UNITS/L 03/08/2025 12:47 AM CDT [facility] 03/07/2025 11:4 1 PM CDT Wesly Steve MD LABORATORY Final Result [facility] [address] [place] [address], [phone] * (ABNORMAL) DIC PANEL (03/07/2025 11:41 PM CDT) Pathologist [facility] PROTIME 12.1 9.4 - 12.5 SEC 03/08/2025 12:11 AM CDT [facility] INR 1.1 0.8 - 1.1 03/08/2025 12:11 AM CDT [facility] PTT 27.3 25.1 - 36.5 SEC 03/08/2025 12:12 AM CDT [facility] FIBRINOGEN 330 200 - 393 MG/DL 03/08/2025 12:10 AM CDT [facility] D-DIMER 932(H) 0 - 500 ng{FEU}/m L 03/08/2025 12:11 AM CDT [facility] EXCLUSION STATEMENT 03/08/2025 12:11 AM CDT [facility] Comment: D-Dimer values less than [...] - 350 x10'3/uL 03/07/2025 11:58 PM CDT [facility] 03/07/2025 11:4 1 PM CDT us Wesly Steve MD LABORATORY Final Result Performing Organization Address City/[facility]/ZIP Co de Phone Number [facility] [address] [place] [address], [place] [phone] * (ABNORMAL) C-REACTIVE PROTEIN (03/07/2025 11:41 PM CDT) C-REACTIVE PROTEIN 2.96(H) <0.80 mg/dL 03/08/2025 12:47 AM CDT [facility] 03/07/2025 11:4 1 PM CDT us Welsy Steve MD LABORATORY Final Result Performing Organization Address [facility] Co de Phone Number [facility] [address] [place] [address], [place] [phone] * BLOOD SMEAR PERIPHERAL INTERP PHYS W/WRIT REPORT (03/07/2025 11:41 PM CDT) CBC PATHOLOGIST COMMENT SENT TO PATHOLOGIST FOR REVIEW 03/08/2025 3:04 PM CDT [facility] 03/07/2025 11:4 1 PM CDT us Wesly Steve MD LABORATORY Final Result Performing Organization Address [facility]/ZIP Co de Phone Number [facility] [address] [place] [address], [place] [phone] * FOLIC ACID SERUM (03/07/2025 11:41 PM CDT) FOLATE 5.2 3.1 - 17.5 NG/ML 03/08/2025 12:35 AM CDT [facility] 03/07/2025 11:4 1 PM CDT Wesly Steve MD LABORATORY Final Result Performing Organization Address City/[facility] Co de Phone Number [facility] [address] [place] [address], [phone] * (ABNORMAL) THYROXINE, FREE (FT4) (03/07/2025 11:41 PM CDT) FREE T4 1.55(H) 0.76 - 1.46 NG/DL 03/08/2025 1:05 AM CDT [facility] 03/07/2025 11:4 1 PM CDT Wesly Steve MD LABORATORY Final Result Performing Organization Address [facility] de Phone Number [facility] [address] [place] [address], [place] [phone] * Pathology (03/07/2025 12:00 AM CDT) PATHOLOGY [facility] Department of Laboratory Medicine [address] [place] [address] , extension [phone] Pathology Report Peripheral Smear Report Name: IVETH BOOGIE Specimen #: [id number] Age: 6 1965 (Age: 60) Location: [facility] Sex: F Procedure Date: 03/07/2025 Hospital #: [id number] Date Received: 03/08/2025 Date Reported: 03/08/2025 Provider: [...] 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 [id number] testing is pending at the time of [...] Interpretation and sign out were performed at [address], [address] [place] [address]. [facility] 03/07/2025 03/08/2025 7:5 2 AM CDT Comment:Peripheral blood us Wesly Steve MD PATHOLOGY/CYTOLOGY ORDERABLES F inal Result [facility] [address] [place] [address], [phone] * PROTIME/INR, VENOUS (01/26/2025 3:25 PM CDT) PROTIME 11.9 9.4 - 12.5 SEC 01/26/2025 3:40 PM CDT [facility] INR 1.0 0.8 - 1.0 01/26/2025 3:40 PM CDT [facility] 01/26/2025 3:25 PM CDT Bharat Young DO LABORATORY Final Result [facility] [address] [place] [address], [place] [phone] from Last 3 Months Insurance MEDICAID MEDICARE Advance Directives * Full Code (Latest Code Status on File) Date Activated Date Inactivated Comments 03/07/2025 10:49 PM 03/12/2025 8:04 PM Care Teams Course Instructor Relationship Specialty Start Date End Date Reagan Fonseca MD [address] [place] [address] PCP - General FAMILY PRACTICE 01/26/25
--- OUTSIDE RECORDS SUMMARY | 2025-03-28 09:44 | XMS_ITS ---
Author Organization Unknown Address [address] [place] [address] [phone] Phone Care Team Providers Care Manager Action Name Role Phone PIPPA KNOX Attending Unavailable JOHAN SULLIVAN Primary Unavailable Immunization Immunization Date Status Additional Notes Code Code System Tdap 03/26/2021 Completed 115 CVX Results US VENOUS RIGHT UE - Complet ed: 03/27/2025 09:54 LOINC: 50321-9 \TM00\\12PI\\DRAo\\BM09\ \MRHo\ [address] [address] ---------NAME--------- NUMBER SEX AGE ADMIT DISC. XRAY# F/C TYPE CHUYITA TONY [id number] F 60 03/27/25 01912 MB O/P DATE OF : 1965 M/R# [id number] PH#: [phone] RM 26-IF \MRHx\ LOCATION: TRANSCRIBED: 03/27/25 10:[place] [address] COMPLETED:03/27/25 9:54 [facility] [address] {REASON-US VENOUS RIGHT UE: MTELODYSPIASTIC SYNDROME PHYSICIAN: [...] or worsen, short-interval follow-up study is suggested. HEAD DISTRIBUTION ENGINEER \ITLo\ \UNDo\ \UNDx\ \ITLx\ Reviewed and Electronically Signed by: Ivan Acosta MD Signed Date: 03/27/25 10:23 03/27/25.1026.AJH.to JOHAN via fax Social History Type Status Start Date End Date Code Code Syst em Smoking History Unknown if ever smoked [address] Sex Female Vital Signs Vital Sign Value Unit Jenkins Value Jenkins Unit Date/Time Recent/Initial? Code Code System Body Mass Index 32.26 kg/m2 03/27/2025 08:53 Initial 06124 -5 LOINC Systolic Blood Pressure 131 mm[Hg] 03/27/2025 08:52 Initial 8480- 6 LOINC Diastolic Blood Pressure 67 mm[Hg] 03/27/2025 08:52 Initial 8462- 4 LOINC Body Surface Area 2.10 m2 03/27/2025 08:53 Initial 3140- 1 LOINC Height 170.180 0 cm 67.00 in 03/27/2025 08:53 Initial 8302- 2 LOINC O2 Saturation 95 % 2024 08:52 Initial 56566 -5 LOINC Pulse 77.0 /min 03/27/2025 08:52 Initial 8867- 4 LOINC Respiration 22 /min 03/27/20 08:52 Initial 9279- 1 LOINC Temperature 36.7 Freda 98.1 F 03/27/20 08:52 Initial 8310- 5 LOINC Weight 93.44 kg 206.00 lbs 03/27/2025 08:53 Initial 87072 -7 LOINC Hospital Discharge Instructions Should you have any questions prior to discharge, please contact a member of your healthcare team. If you have left the hospital and have any questions, please contact your primary care physician. Reason For Referral No Data Found Procedures Procedure Name Date Status Code Code Syste m INSERTION PICC W/RS&I 5 YR/> completed 05502 CPT Plan of Treatment Picc Line Removal 03/27/2025 PICC Line Placement 03/27/2025 US Venous Right UE (23942) 03/27/2025 Encounters Encounter Diagnosis Start Date Code Code Sys tem Myelodysplastic syndrome, unspecified 03/27/2025 SNOMED-CT Personal Care Team Section Performer Name Performer Role Active Date Inactive LAURIE Hidalgo PCP - Primary care physician Imaging Narrative Notes [facility] 03/27/2025 10:26 [facility] [address] [place] [address] ---------NAME--------- NUMBER SEX AGE ADMIT DISC. XRAY# F/C TYPE CHUYITA TONY [id number] F 60 03/27/25 21084 MB O/P DATE OF : 1965 M/R# [id number] #: [id number] 26-IF LOCATION: TRANSCRIBED: 03/27/25 10:23 [place] [address] COMPLETED:03/27/25 9:54 [facility] [address] {REASON-US VENOUS RIGHT UE: MTELODYSPIASTIC SYNDROME PHYSICIAN: [...] or worsen, short-interval follow-up study is suggested. HEAD DISTRIBUTION ENGINEER Reviewed and Electronically Signed by: Ivan Acosta MD Signed Date: 03/27/25 10:23 03/27/25.1026.AJH.david PRADO via fax
--- OUTSIDE RECORDS SUMMARY | 2025-03-28 09:44 | XMS_ITS | Encounter Summary ---
Author Organization [facility] Address [address] [place] [address] Care Team Providers Care Division Plant Engineer Name Role Phone Reagan Fonseca MD Primary Care Provider [phone] Encounter Details Date Type Department Care Team (Late st Contact Info) Description 12/03/2017 Abstract [facility] CONVERSION [address] [place] [address] , Generic Conversion, Social History Tobacco Use [...] on filedocumented in this encounter Care Teams Division Plant Engineer Relationship Specialty Start Date End Date Reagan Fonseca MD [address] [place] [address] PCP - General FAMILY PRACTICE 01/26/25 documented as of this encounter
--- OUTSIDE RECORDS SUMMARY | 2025-03-28 09:44 | XMS_ITS | Encounter Summary ---
Author Organization [facility] Address [address] [place] [address] Care Team Providers Care Swimming Pool Plasterer Helper Name Role Phone Reagan Fonseca MD Primary Care Provider [phone] Encounter Details Date Type Department Care Team (Late st Contact Info) Description 02/24/2019 Abstract SFL CONVERSION [address] [place] [address] , Generic Conversion, Social History Tobacco Use [...] on filedocumented in this encounter Care Teams Swimming Pool Plasterer Helper Relationship Specialty Start Date End Date Reagan Fonseca MD [address] [place] [address] PCP - General FAMILY PRACTICE 01/26/25 documented as of this encounter
--- OUTSIDE RECORDS SUMMARY | 2025-03-28 09:45 | XMS_ITS ---
Author Organization Unknown Address [address] [place] [address] [phone] Phone Care Team Providers Care Ruby On Rails Engineer Name Role Phone PIPPA GREGORIONISHA Attending Unavailable JOHAN SULLIVAN Primary Unavailable Immunization Immunization Date Status Additional Notes Code Code System Tdap 03/26/2021 Completed 115 CVX Social History Type Status Start Date End Date Code Code Syst em Smoking History Unknown if ever smoked [address] Sex Female Vital Signs Vital Sign Value Unit [place] Value [place] Unit Date/Time Recent/Initial? Code Code System Body Mass Index 34.97 kg/m2 02/04/2025 09:56 Initial 49757 -5 [facility] Systolic Blood Pressure 168 mm[Hg] 02/04/2025 09:53 Initial 8480- 6 LOINC Diastolic Blood Pressure 73 mm[Hg] 02/04/2025 09:53 Initial 8462- 4 INC Body Surface Area 2.24 m2 02/04/2025 09:56 Initial 3140- 1 LOINC Height 172.720 0 cm 68.00 in 02/04/2025 09:56 Initial 8302- 2 LOINC O2 Saturation 100 % 2024 09:53 Initial 50724 -5 LOINC Pulse 99.0 /min 02/04/2025 09:53 Initial 8867- 4 LOINC Respiration 22 /min 02/05/20 09:53 Initial 9279- 1 LOINC Temperature 36.3 Freda 97.3 F 02/05/20 09:53 Initial 8310- 5 LOINC Weight 104.33 kg 230.00 lbs 02/04/2025 09:56 Initial 83355 -7 INC Hospital Discharge Instructions Should you have any questions prior to discharge, please contact a member of your healthcare team. If you have left the hospital and have any questions, please contact your primary care physician. Reason For Referral No Data Found Plan of Treatment Picc Line Removal 03/27/2025 PICC Line Placement 03/27/2025 US Venous Right UE (11275) 03/27/2025 Encounters Encounter Diagnosis Start Date Code Code Sys tem Myelodysplastic syndrome, unspecified 02/04/2025 SNOMED-CT Personal Care Team Section Performer Name Performer Role Active Date Inactive LAURIE Hidalgo PCP - Primary care physician
--- OUTSIDE RECORDS SUMMARY | 2025-03-28 09:45 | XMS_ITS ---
Author Organization Unknown Address [address] [place] [phone] Phone Care Team Providers Care Sales Floor Manager Name Role Phone JOHAN SULLIVAN Attending Unavailable Immunization Immunization Date Status Additional Notes Code Code System Tdap 03/26/2021 Completed 115 CVX Results US GALLBLADDER - Completed: 12/25/2024 12:00 LOINC: \TM00\\12PI\\DRAo\\BM09\ \MRHo\ [address] [address] ---------NAME--------- NUMBER SEX AGE ADMIT DISC. XRAY# F/C TYPE CHUYITA TONY [id number] F 59 12/25/24 12/25/24 82336 MBJ O/P DATE OF : 1965 M/R# [id number] PH#: [phone] RM \MRHx\ LOCATION: TRANSCRIBED: 12/25/24 13:39 US GALLBLADDER 97318 COMPLETED:12/25/24 12:00 APC 704[address] {REASON-US ABD: ABDOMINAL PAIN PHYSICIAN: JOHAN R [...] of gallstones or acute cholecystitis. Hepatic steatosis. RAL DENTIST/OWNER \ITLo\ \UNDo\ \UNDx\ \ITLx\ Reviewed and Electronically Signed by: Ivan Acosta MD Signed Date: 12/25/24 13:39 Social History Type Status Start Date End Date Code Code Syst em Smoking History Unknown if ever smoked [address] Sex Female Hospital Discharge Instructions Should you have any questions prior to discharge, please contact a member of your healthcare team. If you have left the hospital and have any questions, please contact your primary care physician. Reason For Referral No Data Found Plan of Treatment Picc Line Removal 03/27/2025 PICC Line Placement 03/27/2025 US Venous Right UE (55501) 03/27/2025 Encounters Encounter Diagnosis Start Date Code Code Sys tem Fatty (change of) liver, not elsewhere classified 04/2025 SNOMED-CT Personal Care Team Section Performer Name Performer Role Active Date Inactive LAURIE Hidalgo PCP - Primary care physician Imaging Narrative Notes [facility] 12/25/2024 13:42 [facility] [address] [place] [address] ---------NAME--------- NUMBER SEX AGE ADMIT DISC. XRAY# F/C TYPE CHUYITA TONY [id number] F 59 12/25/24 12/25/24 [address] [facility] O/P DATE OF : 1965 M/R# [id number] #: [id number] LOCATION: TRANSCRIBED: 12/25/24 13:39 [place] GALLBLADDER [address] COMPLETED:12/25/24 12:00 [facility] 70057 {REASON-US ABD: ABDOMINAL PAIN PHYSICIAN: JOHAN RADIOLOGY [...] of gallstones or acute cholecystitis. Hepatic steatosis. RAL DENTIST/OWNER Reviewed and Electronically Signed by: Ivan Acosta MD Signed Date: 12/25/24 13:39
--- OUTSIDE RECORDS SUMMARY | 2025-03-28 09:45 | XMS_ITS ---
Author Organization Unknown Address [address] [place] [phone] Phone Care Team Providers Care Mica Patcher Name Role Phone PIPPA BURCIAGAWade Attending Unavailable JOHAN SULLIVAN Primary Unavailable Immunization Immunization Date Status Additional Notes Code Code System Tdap 03/26/2021 Completed 115 CVX Results CBC W/ DIFF - Collect Date/T sarah: 01/23/2025 14:13 [facility] ID: [id number] [address] [place], [place], [phone] LOINC: 54309-5 Test Value Unit Reference Range Code Code [...] H=36.0 L PLATELETS 32 10^3uL L=100 H=400 83209-5 LOINC L RDW 17.1 % L=11.7 H=15.5 H %GRAN L=40.0 H=70.0 06950-2 LOINC %LYMPH L=20.0 H=45.0 736-9 LOINC %MONO L=2.0 H=10.0 61042-0 LOINC %EOS L=0.0 H=6.0 713-8 LOINC %BASO L=0.0 H=3.0 706-2 LOINC #NEUT L=1.9 H=7.6 80089-8 LOINC CALLED TO: CHRISTOPH BillingsleyHONORIO AT: 1448 01/23/25 BY: SDK #LYMPH L=0.9 H=4.9 76039-5 LOINC #MONO L=0.1 H=0.9 45767-8 LOINC #EOS L=0.0 H=0.6 712-0 LOINC #BASO L=0.00 H=0.10 01727-7 LOINC #IM GRANS L=0.0 H=7.0 73877-2 LOINC %IM GRANS L=0.0 H=5.0 12796-9 LOINC %NRB L=0.0 H=0.2 07936-9 LOINC #NRB L=0.000 H=0.012 49567-5 LOINC MANUAL DIFF SEE BELOW A SEG [...] L=0 H=0 BLASTS 0 % L=0 H=0 19974-4 LOINC PANDA LYMPHS 10.00 % L=0.00 H=5.00 H SMUDGE CELLS 0 % L=0 H=0 NRBC 0.0 % L=0.0 H=0.0 PLTS DECREASED NEUT # 0.6 10^3uL L=1.9 H=7.6 LL LYMPH # 1.0 10^3uL L=0.9 H=4.9 MONO # 0.1 10^3uL L=0.1 H=0.9 EOS # 0.1 10^3uL L=0.0 H=0.6 712-0 LOINC BASO # 0.0 10^3uL L=0.0 H=0.1 73938-0 LOINC RBC MORPH NOT INDICATED COMPREHENSIVE METABOLIC PANE L - Collect Date/Time: 01/23/2025 14:13 [facility] ID: [id number] [address] [place], [place], [phone] LOINC: 77711-3 Test Value Unit Reference Range Code Code [...] 2028-9 LOINC ANION GAP 9 L=10 H=20 80951-7 LOINC L OSMOLALITY 291 mOs/kG L=280 H=296 14679-6 LOINC BUN/CREAT 13.8 3097-3 LOINC CALCIUM 8.7 mg/dL L=8.3 H=10.5 07924-9 LOINC AST 20 U/L L=15 H=46 1920-8 LOINC ALT 12 U/L L=9 H=72 1742-6 LOINC ALKALINE PHOS 71 U/L L=38 H=126 6768-6 LOINC TOTAL BILI 0.2 mg/dL L=0.2 H=1.3 1975-2 LOINC ALBUMIN 3.7 G/dL L=3.5 H=5.0 1751-7 LOINC TOTAL PROTEIN 6.8 g/L L=6.3 H=8.2 2885-2 LOINC A/G RATIO 1.2 53286-1 LOINC AGE 59 27549-2 LOINC eGFR NON-AFR 79 ml/min eGFR AFR AMER 96 ml/min BB ABO AND RH TYPE - Collect Date/Time: 01/23/2025 14:13 [facility] ID: [id number] [address] [place], [place], [phone] LOINC: 65276-2 Test Value Unit Reference Range Code Code System Flag ABO TYPE A 883-9 LOINC RH TYPE POSITIVE BB RETYPE ABO AND RH TYPE - Collect Date/Time: 01/23/2025 14:13 [facility] ID: [id number] [address] [place], [place], [phone] LOINC: 01093-3 Test Value Unit Reference Range Code Code System Flag ABO TYPE A 883-9 LOINC RH TYPE POSITIVE Social History Type Status Start Date End Date Code Code Syst em Smoking History Unknown if ever smoked [address] Sex Female Hospital Discharge Instructions Should you have any questions prior to discharge, please contact a member of your healthcare team. If you have left the hospital and have any questions, please contact your primary care physician. Reason For Referral No Data Found Plan of Treatment Picc Line Removal 03/27/2025 PICC Line Placement 03/27/2025 US Venous Right UE ([id number]) 03/27/2025 Encounters Encounter Diagnosis Start Date Code Code Sys tem Myelodysplastic syndrome, unspecified 01/23/2025 SNOMED-CT Personal Care Team Section Performer Name Performer Role Active Date Inactive LAURIE Hidalgo PCP - Primary care physician
[2025-03-28] MEDS: ONDANSETRON INJ 16 MG in SODIUM CHLORIDE 0.9% IV 50 ML 174 MG IVPB (09:50)
--- NOTE | 2025-03-28 10:59 | PC.NURSE ---
1030 Patient report having chest discomfort. Dr. Mar notified. Would like her to go to ED and get workup. Patient to ED per . Report given to Dr. Germain.
[2025-03-28] MEDS: SODIUM CHLORIDE 0.9% IVPB (14:30)
[2025-03-28] MEDS: DECITABINE IVPB (14:30)
--- NOTE | 2025-03-28 14:42 | PC.NURSE ---
1520 Back from ED. Everything negative. Per ED and Dr. Mar proceed with treatment and transfusion 1 unit of RBC's
[2025-03-28] MEDS: SODIUM CHLORIDE 0.9% IV 250 ML 10 ML IVPB (15:30)
--- NOTE | 2025-03-28 15:41 | PC.NURSE ---
1530 Tolerated Decitabine infusion well. NO chest pain reported. 1530 Consent signed for 1 Unit PRBC's for hgb 6.8. Education given. No concerns voiced. 1 unit of PRBC's started at 60 ml/hr.
--- NOTE | 2025-03-28 15:56 | PC.NURSE ---
1545 No s/sx of blood transfusion reaction noted or reported. Up rate to 100 ml/hr.
--- NOTE | 2025-03-28 16:48 | PC.NURSE ---
4004 Patient ambulated to bathroom and back. Reports voided good amount of urine. Snacking on sandwich. No complaints. Up rate of blood transfusion to 120 ml/hr.
--- NOTE | 2025-03-28 17:48 | PC.NURSE ---
1745 Tolerated blood transfusion well. No complaints voiced. Watching TV.KJ
--- NOTE | 2025-03-28 18:32 | PC.NURSE ---
1 Unit PRBC's completed. Normal saline infusing. Tolerated blood well. Assisted to bathroom and back. Steady on feet.
[2025-03-28] MEDS: HEPARIN SODIUM LOCK FLUSH 500 UNITS/5 ML SYRINGE (18:40)
[2025-03-28 18:44] LABS: Hematocrit 24.3 % (35.0-49.0); Hemoglobin 7.6 g/dL (12.0-15.0)
--- NOTE | 2025-03-28 18:46 | PC.NURSE ---
Post H/H drawn. No concerns voiced.
--- NOTE | 2025-03-28 18:56 | PC.NURSE ---
Patient's ride here. VSS. No concerns. Denies chest discomfort. No s/sx of blood transfusion reaction noted or reported.
== END 2025-03-28 09:39 | disposition home or self-care (01) ==
PROVIDERS: PCP Family Medicine; Visit Provider Internal Medicine Hematology
DX: D46.9 Myelodysplastic syndrome, unspecified (principal)
CPT/HCPCS: 36415; 36430; 85014; 85018; 86850; 86900; 86901; 86920; 96367; 96413; J0894; J2405; J7050; P9016

== ENCOUNTER 2025-03-28 10:40 | Emergency (ER) | payer MEDICARE, SELFPAY ==
[2025-03-28] VITALS (10 sets, daily range): BP systolic 145–163; BP diastolic 55–86; PULSE 71–87; RESP 17–18; TEMP 36.2–36.8; O2SAT 92–98
--- NOTE | ~2025-03-28 | CT_ITS ---
EXAMINATION: CTA chest PE protocol DATE: 03/28/2025 14:11 CDT INDICATION: Thrombus in right upper extremity TECHNIQUE: Computed tomographic angiography (CTA) of the chest was performed with 100 mL Omnipaque-35 0 intravenous contrast. The dose-length product was 631.69 mGy-cm. Maximum intensity projection 3D-re constructions of the aorta and other arteries were constructed by the technologist on a separate work station. COMPARISON: 03/07/2025. FINDINGS/OBSERVATIONS: PULMONARY ARTERIES: No filling defect is identified within the main or proximal pulmonary artery. The main pulmonary artery is not enlarged. THORACIC AORTA: No aneurysmal dilatation or dissection is present. The great vessels are intact LUNGS: Interval development of a 7 mm nodule within the right upper lobe, with adjacent groundglass o pacification, possibly not as prominent on the previous study secondary to rapid respiratory rate cau sing motion artifact. Interval development of a small left-sided pleural effusion with adjacent compressive atelectasis. Trace right basilar atelectasis is also noted. MEDIASTINUM: No morphologically suspicious or pathologically enlarged lymph nodes are identified with in the mediastinum or bilateral axilla. Small hiatal hernia persists. BONES OF THE CHEST: No acute fracture. No significant degenerative disease. No lytic or blastic lesions. HEART: The heart is of normal size, without pericardial effusion. IMPRESSION: No pulmonary embolus. No thoracic aortic dissection. Interval development of a 7 mm nodule within the right upper lobe with adjacent groundglass opacifica tion for which three-month follow-up chest CT is recommended. Reviewed, dictated and finalized at location A. IMPRESSION: No pulmonary embolus. No thoracic aortic dissection. Interval development of a 7 mm nodule within the right upper lobe with adjacent groundglass opacification for which three-month follow-up chest CT is recommen ded.
--- NOTE | 2025-03-28 10:40 | ECG_ITS ---
Test Date: 2025-03-28 10:47:57 Measurements Intervals [place] Rate: 87 P: 70 NE: 147 QRS: 31 QRSD: 93 T: 121 QT: 329 QTc: 396 Interpretive Statements SINUS RHYTHM NONSPECIFIC T-WAVE ABNORMALITY Compared to ECG 03/07/2025 16:50:50 Sinus tachycardia no longer present Possible ischemia no longer present T-wave abnormality still present Electronically Signed On 03-28-2025 13:15:22 CDT by Reuben Tamayo M.D.
--- OUTSIDE RECORDS SUMMARY | 2025-03-28 10:42 | XMS_ITS ---
Author Organization Unknown Address [address] [place] [phone] Phone Care Team Providers Care Primary Care Pediatrician Name Role Phone JOHAN SULLIVAN Attending Unavailable Immunization Immunization Date Status Additional Notes Code Code System Tdap 03/26/2021 Completed 115 CVX Results CBC W/ DIFF - Collect Date/T sarah: 01/08/2025 13:23 [facility] ID: [id number] [address] [place] [address], [id number] LOINC: 88679-4 Test Value Unit Reference Range Code Code [...] H=36.0 L PLATELETS 43 10^3uL L=100 H=400 66092-8 LOINC L RDW 16.1 % L=11.7 H=15.5 H %GRAN L=40.0 H=70.0 00565-2 LOINC %LYMPH L=20.0 H=45.0 736-9 LOINC %MONO L=2.0 H=10.0 73085-6 LOINC %EOS L=0.0 H=6.0 713-8 LOINC %BASO L=0.0 H=3.0 706-2 LOINC #NEUT L=1.9 H=7.6 15916-0 LOINC #LYMPH L=0.9 H=4.9 11330-5 LOINC #MONO L=0.1 H=0.9 79837-6 LOINC #EOS L=0.0 H=0.6 712-0 LOINC #BASO L=0.00 H=0.10 01203-0 LOINC #IM GRANS L=0.0 H=7.0 72352-7 LOINC %IM GRANS L=0.0 H=5.0 50845-5 LOINC %NRB L=0.0 H=0.2 99542-7 LOINC #NRB L=0.000 H=0.012 16791-5 LOINC MANUAL DIFF SEE BELOW A SEG [...] L=0 H=0 BLASTS 0 % L=0 H=0 16056-8 LOINC PANDA LYMPHS 0.00 % L=0.00 H=5.00 SMUDGE CELLS 0 % L=0 H=0 NRBC 0.0 % L=0.0 H=0.0 PLTS DECREASED NEUT # 0.7 10^3uL L=1.9 H=7.6 LL LYMPH # 1.2 10^3uL L=0.9 H=4.9 MONO # 0.0 10^3uL L=0.1 H=0.9 L EOS # 0.1 10^3uL L=0.0 H=0.6 712-0 LOINC BASO # 0.0 10^3uL L=0.0 H=0.1 19865-8 LOINC RBC MORPH NOT INDICATED COMPREHENSIVE METABOLIC PANE L - Collect Date/Time: 01/08/2025 13:23 [facility] ID: [id number] [address] [place], [place], [id number] LOINC: 78145-9 Test Value Unit Reference Range Code Code [...] 2028-9 LOINC ANION GAP 10 L=10 H=20 33109-1 LOINC OSMOLALITY 288 mOs/kG L=280 H=296 38573-8 LOINC BUN/CREAT 13.3 3097-3 LOINC CALCIUM 8.9 mg/dL L=8.3 H=10.5 14065-0 LOINC AST 23 U/L L=15 H=46 1920-8 LOINC ALT 15 U/L L=9 H=72 1742-6 LOINC ALKALINE PHOS 61 U/L L=38 H=126 6768-6 LOINC TOTAL BILI 0.3 mg/dL L=0.2 H=1.3 1975-2 LOINC ALBUMIN 3.9 G/dL L=3.5 H=5.0 1751-7 LOINC TOTAL PROTEIN 7.6 g/L L=6.3 H=8.2 2885-2 LOINC A/G RATIO 1.1 82770-7 LOINC AGE 59 43768-4 LOINC eGFR NON-AFR 69 ml/min eGFR AFR AMER 83 ml/min Social History Type Status Start Date End Date Code Code Syst em Smoking History Unknown if ever smoked [address] Sex Female Hospital Discharge Instructions Should you have any questions prior to discharge, please contact a member of your healthcare team. If you have left the hospital and have any questions, please contact your primary care physician. Reason For Referral No Data Found Plan of Treatment Picc Line Removal 03/27/2025 PICC Line Placement 03/27/2025 US Venous Right UE ([id number]) 03/27/2025 Encounters Encounter Diagnosis Start Date Code Code Sys tem Myelodysplastic syndrome, unspecified 01/08/2025 SNOMED-CT Personal Care Team Section Performer Name Performer Role Active Date Inactive LAURIE Hidalgo PCP - Primary care physician
--- OUTSIDE RECORDS SUMMARY | 2025-03-28 10:42 | XMS_ITS | Encounter Summary ---
Author Organization [facility] Address [address] [place] [address] Care Team Providers Care Pot Holder Binder Name Role Phone Reagan Fonseca MD Primary Care Provider [phone] Encounter Details Date Type Department Care Team (Late st Contact Info) Description 02/24/2019 Abstract SFL CONVERSION [address] [place] [address] , Generic Conversion, Social History Tobacco Use [...] on filedocumented in this encounter Care Teams Pot Holder Binder Relationship Specialty Start Date End Date Reagan Fonseca MD [address] [place] [address] PCP - General FAMILY PRACTICE 01/26/25 documented as of this encounter
--- OUTSIDE RECORDS SUMMARY | 2025-03-28 10:42 | XMS_ITS | Encounter Summary ---
Author Organization [facility] Address [address] [place] [address] Care Team Providers Care Javascript Programmer Name Role Phone Reagan Fonseca MD Primary Care Provider [phone] Encounter Details Date Type Department Care Team (Late st Contact Info) Description 12/03/2017 Abstract SJS CONVERSION [address] [place] [address] , Generic Conversion, Social History Tobacco Use [...] on filedocumented in this encounter Care Teams Javascript Programmer Relationship Specialty Start Date End Date Reagan Fonseca MD [address] [place] [address] PCP - General FAMILY PRACTICE 01/26/25 documented as of this encounter
--- OUTSIDE RECORDS SUMMARY | 2025-03-28 10:43 | XMS_ITS ---
Author Organization Unknown Address [address] [place] [phone] Phone Care Team Providers Care Urology Teacher Name Role Phone PIPPA KNOX Attending Unavailable JOHAN SULLIVAN Primary Unavailable Immunization Immunization Date Status Additional Notes Code Code System Tdap 03/26/2021 Completed 115 CVX Results US VENOUS RIGHT UE - Complet ed: 03/27/2025 09:54 LOINC: 58171-1 \TM00\\12PI\\DRAo\\BM09\ \MRHo\ [address] [address] ---------NAME--------- NUMBER SEX AGE ADMIT DISC. XRAY# F/C TYPE CHUYITA TONY [id number] F 60 03/27/25 91776 MB O/P DATE OF : 1965 M/R# [id number] PH#: [phone] RM 26-IF \MRHx\ LOCATION: TRANSCRIBED: 03/27/25 10:[place] [address] COMPLETED:03/27/25 9:54 [facility] [address] {REASON-US VENOUS RIGHT UE: MTELODYSPIASTIC SYNDROME PHYSICIAN: [...] or worsen, short-interval follow-up study is suggested. TRANSFER WORKER \ITLo\ \UNDo\ \UNDx\ \ITLx\ Reviewed and Electronically Signed by: Ivan Acosta MD Signed Date: 03/27/25 10:23 03/27/25.1026.AJH.to JOHAN via fax Social History Type Status Start Date End Date Code Code Syst em Smoking History Unknown if ever smoked [id number] Sex Female Vital Signs Vital Sign Value Unit [place] Value [place] Unit Date/Time Recent/Initial? Code Code System Body Mass Index 32.26 kg/m2 03/27/2025 08:53 Initial 89677 -5 LOINC Systolic Blood Pressure 131 mm[Hg] 03/27/2025 08:52 Initial 8480- 6 LOINC Diastolic Blood Pressure 67 mm[Hg] 03/27/2025 08:52 Initial 8462- 4 LOINC Body Surface Area 2.10 m2 03/27/2025 08:53 Initial 3140- 1 LOINC Height 170.180 0 cm 67.00 in 03/27/2025 08:53 Initial 8302- 2 LOINC O2 Saturation 95 % 2024 08:52 Initial 66678 -5 LOINC Pulse 77.0 /min 03/27/2025 08:52 Initial 8867- 4 LOINC Respiration 22 /min 03/27/20 08:52 Initial 9279- 1 LOINC Temperature 36.7 Freda 98.1 F 03/27/20 08:52 Initial 8310- 5 LOINC Weight 93.44 kg 206.00 lbs 03/27/2025 08:53 Initial 03886 -7 LOINC Hospital Discharge Instructions Should you have any questions prior to discharge, please contact a member of your healthcare team. If you have left the hospital and have any questions, please contact your primary care physician. Reason For Referral No Data Found Procedures Procedure Name Date Status Code Code Syste m INSERTION PICC W/RS&I 5 YR/> completed 77740 CPT Plan of Treatment Picc Line Removal 03/27/2025 PICC Line Placement 03/27/2025 US Venous Right UE ([id number]) 03/27/2025 Encounters Encounter Diagnosis Start Date Code Code Sys tem Myelodysplastic syndrome, unspecified 03/27/2025 SNOMED-CT Personal Care Team Section Performer Name Performer Role Active Date Inactive LAURIE Hidalgo PCP - Primary care physician Imaging Narrative Notes [facility] 03/27/2025 10:26 [facility] [address] [place] [address] ---------NAME--------- NUMBER SEX AGE ADMIT DISC. XRAY# F/C TYPE CHUYITA TONY [id number] F 60 03/27/25 60960 MB O/P DATE OF : 1965 M/R# [id number] #: [id number] 26-IF LOCATION: TRANSCRIBED: 03/27/25 10:23 [place] [address] COMPLETED:03/27/25 9:54 [facility] [address] {REASON-US VENOUS RIGHT UE: MTELODYSPIASTIC SYNDROME PHYSICIAN: [...] or worsen, short-interval follow-up study is suggested. TRANSFER WORKER Reviewed and Electronically Signed by: Ivan Acosta MD Signed Date: 03/27/25 10:23 03/27/25.1026.AJH.david PRADO via fax
--- OUTSIDE RECORDS SUMMARY | 2025-03-28 10:43 | XMS_ITS ---
Author Organization Unknown Address [address] [place] [phone] Phone Care Team Providers Care Application Developer Name Role Phone PIPPA BURCIAGAWaed Attending Unavailable JOHAN SULLIVAN Primary Unavailable Immunization Immunization Date Status Additional Notes Code Code System Tdap 03/26/2021 Completed 115 CVX Results CBC W/ DIFF - Collect Date/T sarah: 01/23/2025 14:13 [facility] ID: [id number] [address] [place] [address], [id number] LOINC: 99020-0 Test Value Unit Reference Range Code Code [...] H=36.0 L PLATELETS 32 10^3uL L=100 H=400 51409-4 LOINC L RDW 17.1 % L=11.7 H=15.5 H %GRAN L=40.0 H=70.0 42223-2 LOINC %LYMPH L=20.0 H=45.0 736-9 LOINC %MONO L=2.0 H=10.0 98064-1 LOINC %EOS L=0.0 H=6.0 713-8 LOINC %BASO L=0.0 H=3.0 706-2 LOINC #NEUT L=1.9 H=7.6 42186-7 LOINC CALLED TO: CHRISTOPH MÁRQUEZ AT: 1448 01/23/25 BY: SDK #LYMPH L=0.9 H=4.9 44635-3 LOINC #MONO L=0.1 H=0.9 94868-5 LOINC #EOS L=0.0 H=0.6 712-0 LOINC #BASO L=0.00 H=0.10 68602-7 LOINC #IM GRANS L=0.0 H=7.0 52464-9 LOINC %IM GRANS L=0.0 H=5.0 23055-2 LOINC %NRB L=0.0 H=0.2 41230-6 LOINC #NRB L=0.000 H=0.012 40103-0 LOINC MANUAL DIFF SEE BELOW A SEG [...] L=0 H=0 BLASTS 0 % L=0 H=0 74665-7 LOINC PANDA LYMPHS 10.00 % L=0.00 H=5.00 H SMUDGE CELLS 0 % L=0 H=0 NRBC 0.0 % L=0.0 H=0.0 PLTS DECREASED NEUT # 0.6 10^3uL L=1.9 H=7.6 LL LYMPH # 1.0 10^3uL L=0.9 H=4.9 MONO # 0.1 10^3uL L=0.1 H=0.9 EOS # 0.1 10^3uL L=0.0 H=0.6 712-0 LOINC BASO # 0.0 10^3uL L=0.0 H=0.1 33566-2 LOINC RBC MORPH NOT INDICATED COMPREHENSIVE METABOLIC PANE L - Collect Date/Time: 01/23/2025 14:13 [facility] ID: [id number] [address] [place], [place], [id number] LOINC: 43356-4 Test Value Unit Reference Range Code Code [...] 2028-9 LOINC ANION GAP 9 L=10 H=20 15618-9 LOINC L OSMOLALITY 291 mOs/kG L=280 H=296 53269-7 LOINC BUN/CREAT 13.8 3097-3 LOINC CALCIUM 8.7 mg/dL L=8.3 H=10.5 94982-2 LOINC AST 20 U/L L=15 H=46 1920-8 LOINC ALT 12 U/L L=9 H=72 1742-6 LOINC ALKALINE PHOS 71 U/L L=38 H=126 6768-6 LOINC TOTAL BILI 0.2 mg/dL L=0.2 H=1.3 1975-2 LOINC ALBUMIN 3.7 G/dL L=3.5 H=5.0 1751-7 LOINC TOTAL PROTEIN 6.8 g/L L=6.3 H=8.2 2885-2 LOINC A/G RATIO 1.2 85104-6 LOINC AGE 59 15017-0 LOINC eGFR NON-AFR 79 ml/min eGFR AFR AMER 96 ml/min BB ABO AND RH TYPE - Collect Date/Time: 01/23/2025 14:13 [facility] ID: [id number] [address] [place], [place], [id number] LOINC: 05713-9 Test Value Unit Reference Range Code Code System Flag ABO TYPE A 883-9 LOINC RH TYPE POSITIVE BB RETYPE ABO AND RH TYPE - Collect Date/Time: 01/23/2025 14:13 [facility] ID: [id number] [address] [place], [place], [id number] LOINC: 86228-2 Test Value Unit Reference Range Code Code System Flag ABO TYPE A 883-9 LOINC RH TYPE POSITIVE Social History Type Status Start Date End Date Code Code Syst em Smoking History Unknown if ever smoked [address] Sex Female Hospital Discharge Instructions Should you have any questions prior to discharge, please contact a member of your healthcare team. If you have left the hospital and have any questions, please contact your primary care physician. Reason For Referral No Data Found Plan of Treatment Picc Line Removal 03/27/2025 PICC Line Placement 03/27/2025 US Venous Right UE (43237) 03/27/2025 Encounters Encounter Diagnosis Start Date Code Code Sys tem Myelodysplastic syndrome, unspecified 01/23/2025 SNOMED-CT Personal Care Team Section Performer Name Performer Role Active Date Inactive LAURIE Hidalgo PCP - Primary care physician
--- OUTSIDE RECORDS SUMMARY | 2025-03-28 10:43 | XMS_ITS ---
Author Organization Unknown Address [address] [place] [phone] Phone Care Team Providers Care Nurse Practitioner Manager Name Role Phone JOHAN SULLIVAN Attending Unavailable Immunization Immunization Date Status Additional Notes Code Code System Tdap 03/26/2021 Completed 115 CVX Results US GALLBLADDER - Completed: 12/25/2024 12:00 LOINC: \TM00\\12PI\\DRAo\\BM09\ \MRHo\ [address] [address] ---------NAME--------- NUMBER SEX AGE ADMIT DISC. XRAY# F/C TYPE CHUYITA TONY [id number] F 59 12/25/24 12/25/24 42511 MBJ O/P DATE OF : 1965 M/R# [id number] PH#: [phone] RM \MRHx\ LOCATION: TRANSCRIBED: 12/25/24 13:39 US GALLBLADDER 35098 COMPLETED:12/25/24 12:00 [facility] 47[address] {REASON-US ABD: ABDOMINAL PAIN PHYSICIAN: JOHAN R [...] of gallstones or acute cholecystitis. Hepatic steatosis. 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 If you have left the hospital and have any questions, please contact your primary care physician. Reason For Referral No Data Found Plan of Treatment Picc Line Removal 03/27/2025 PICC Line Placement 03/27/2025 US Venous Right UE (73186) 03/27/2025 Encounters Encounter Diagnosis Start Date Code Code Sys tem Fatty (change of) liver, not elsewhere classified 04/2025 SNOMED-CT Personal Care Team Section Performer Name Performer Role Active Date Inactive LAURIE Hidalgo PCP - Primary care physician Imaging Narrative Notes [facility] 12/25/2024 13:42 [facility] [address] [place] [address] ---------NAME--------- NUMBER SEX AGE ADMIT DISC. XRAY# F/C TYPE CHUYITA TONY [id number] F 59 12/25/24 12/25/24 [address] [facility] O/P DATE OF : 1965 M/R# [id number] #: [id number] LOCATION: TRANSCRIBED: 12/25/24 13:39 [facility] GALLBLADDER [address]41 COMPLETED:12/25/24 12:00 [facility] 68118 {REASON-US ABD: ABDOMINAL PAIN PHYSICIAN: JOHAN RADIOLOGY [...] of gallstones or acute cholecystitis. Hepatic steatosis. 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
--- OUTSIDE RECORDS SUMMARY | 2025-03-28 10:43 | XMS_ITS | Clinical Summary ---
Author Organization [facility] Address [facility] [place] [address] Care Team Providers Care Balancer Name Role Phone Reagan Fonseca MD Primary Care Provider [phone] Allergies Active Allergy Reactions Criticality Noted Date [...] - 03/12/2025 5:58 PM CDT Hospital Encounter [facility] [address] [place] [address] Hansel Strickland MD Sheikh, MD Kory Alonso, MD Marcelle Discharge Disposition: Home or Self Care (Routine Discharge) 03/07/2025 Travel 01/26/2025 2:50 PM CDT - 01/26/2025 8:40 PM CDT Emergency [facility] Emergency Room [facility] [place] [address] Bharat Young, Medical Problem Discharge Disposition: Home [...] from your doctor or pharmacy? Rarely 03/08/2025 [facility] Utilities Answer Date Recorded In the past 12 months has e [employer], [employer], or water [employer] threatened to shut off services in your [...] week 03/08/2025 How often do you attend hindu or jehovah's witness serv ices? Never 03/08/2025 Do you belong to any clubs o r organizations such as hindu groups, unions, fraternal or athletic groups, or [...] medical care, and heating? Patient declined 03/08/2025 [facility] - Occupational Stress Questionnaire [...] any time in the past [address] [facility], were you homeless or living in a chcf (including now)? No 03/08/2025 Comments No Sex [...] SERUM Routine 03/07/2025 11:4 1 PM CDT [id number] ACT W/RFLX INHIBITOR Routine 03/07/2025 11:41 PM [...] DEVICE Final R esult [facility] [address] [place] [address], [id number] * TRANSFUSE PLATELET PHERESIS (03/12/2025 1:41 PM [...] CDT [facility] BLOOD UNIT NUMBER [id number] 03/12/2025 1:38 PM CDT [facility] PRODUCT: PC LEUKOPOOR 03/12/2025 1:38 PM CDT [facility] UNIT DIVISION 00 03/12/2025 1:38 PM CDT [facility] BLOOD UNIT STATUS TRANSFUSED,FINAL 03/13/2025 6:44 AM CDT [facility] ISSUE DATE/TIME [id number] 025 6:44 AM CDT [facility] PRODUCT CODE [id number] 03/13/2025 6:44 AM CDT [facility] ABO/RH Unit A POS 03/13/2025 6:44 AM CDT [facility] ABO/RH UNIT ISBT CODE 6200 03/13/2025 6:44 AM CDT [facility] BLOOD UNIT EXPIRATION DATE [id number] 03/13/2025 6:44 AM CDT [facility] TRANSFUSION STATUS OK TO TRANSFUSE 03/12/2025 1:38 PM CDT [facility] CROSSMATCH COMPATIBLE-EXM 03/12/2025 1:38 PM CDT [facility] 03/12/2025 11:1 5 AM CDT Marcelle Rich MD BLOOD BANK TEST ORDERABLES Final Result [facility] [address] [place] [address], [id number] * ORDER PLATELET PHERESIS, 1 Units (03/12/2025 6:46 AM CDT) Only the most recent of3 resultswithin the time period is included. UNITS ORDERED 1 03/12/2025 6:46 AM CDT [facility] BLOOD UNIT NUMBER [id number] 03/12/2025 9:57 AM CDT [facility] PRODUCT: PLT PHERESIS LEUKORED 7D BAG 2 03/12/2025 9:57 AM CDT [facility] UNIT DIVISION 00 03/12/2025 9:57 AM CDT [facility] BLOOD UNIT STATUS TRANSFUSED,FINAL 03/13/2025 6:44 AM CDT [facility] ISSUE DATE/TIME [id number] 025 6:44 AM CDT [facility] PRODUCT CODE [id number] 03/13/2025 6:44 AM CDT [facility] ABO/RH Unit AB POS 03/13/2025 6:44 AM CDT [facility] ABO/RH UNIT ISBT CODE 8400 03/13/2025 6:44 AM CDT [facility] BLOOD UNIT EXPIRATION DATE [id number] 03/13/2025 6:44 AM CDT [facility] TRANSFUSION STATUS OK TO TRANSFUSE 03/12/2025 9:57 AM CDT [facility] 03/12/2025 6:46 AM CDT Phani Sarmiento MD BLOOD BANK PRODUCT ORDERA BLES Final Result [facility] [address] [place] [address], [id number] * (ABNORMAL) CBC W/DIFF AUTOMATED (03/12/2025 3:50 [...] Comment: This result has been called to [id number] by [id number] on 03/12/2025 05:55:00, and has been read [...] LABORATORY Final Result [facility] [address] [place] [address], [id number] * (ABNORMAL) BASIC METABOLIC PANEL (03/11/2025 9:42 [...] 8.5 - 10.1 MG/DL 03/11/2025 10:19 AM [facility] ANION GAP 5.9 2.0 - 10.0 MMOL/L 03/11/2025 10:19 AM T [facility] OSMOLALITY (CALC) 297 MOSM/KG 025 10:19 AM [facility] Comment:REFERENCE RANGE NOT ESTABLISHED GFR [...] MD LABORATORY Final Result Performing Organization Address [facility] de Phone Number [facility] [address] [place] [address], [id number] * PHOSPHORUS, INORGANIC PHOSPHATE (03/10/2025 2:41 AM CDT) PHOSPHORUS 3.5 2.5 - 4.9 MG/DL 03/10/2025 3:34 AM CDT [facility] 03/10/2025 2:41 AM CDT us Marcelle Rich MD LABORATORY Final Result Performing Organization Address [facility] de Phone Number [facility] [address] [place] [address], [place] [phone] * MAGNESIUM (03/10/2025 2:41 AM CDT) MAGNESIUM 1.9 1.6 - 2.6 MG/DL 03/10/2025 3:34 AM CDT [facility] 03/10/2025 2:41 AM CDT us Marcelle Rich MD LABORATORY Final Result Performing Organization Address [facility] de Phone Number [facility] [address] [place] [address], [id number] * (ABNORMAL) Blood gas, venous (03/09/2025 5:27 [...] LABORATORY Final Result [facility] [address] [place] [address], [id number] * XR CHEST PORTABLE (03/08/2025 11:08 AM CDT) Anatomical Region Laterality Modality Chest Radiographic Aishwarya ging 03/08/2025 12:2 3 PM CDT Impressions 03/08/2025 12:24 PM CDT IMPRESSION: 1. Mild pulmonary vascular congestion. 2. No focal consolidation or pneumothorax. Ordered By: MARCELLE RICH Interpreted By: Bk Perez MD, 03/08/2025 12:23 PM Narrative 03/08/2025 12:24 PM CDT [facility] [address] [place], [place] [address] PROCEDURE: XR CHEST PORTABLE. 03/08/2025 11:06 AM. [...] Procedure Note Bk Perez MD - 03/08/2025 [facility] [address] [place], [place] [address] PROCEDURE: XR CHEST PORTABLE. 03/08/2025 11:06 AM. [...] CDT) TEST NAME: LEUKEMIA LYMPHOMA EVAL TEST 11557 03/08/2025 1:46 PM CDT [facility] SPECIMEN TYPE PERIPHERAL BLOOD EDTA, ROOM TEMP 03/08/2025 1:46 PM CDT [facility] TEST RESULT: Flexitest 1 03/12/2025 11:42 AM CDT [employer] REGGIE VÁSQUEZ Comment: Flexitest 1 CLINICAL INFORMATION: [...] staining intensity, forward scatter and side scatter. Barclay A - Granulocytes Marker Percentage CD2 1 CD3 0 CD4 0 CD5 0 CD7 1 CD8 0 CD10 87 CD11c 96 CD13 91 CD19 0 CD19+CD5+ 0 CD20 0 CD23 1 CD33 3 CD34 0 CD38 2 CD45 100 CD56+CD3- 2 CD64 0 CD117 0 HLA_DR 2 Brinckerhoff CD19+ 0 Lambda CD19+ 0 K/L Ratio NA Barclay B - Lymphocytes Marker Percentage CD2 66 CD3 62 CD4 42 CD5 60 CD7 53 CD8 19 CD10 2 CD11c 6 CD13 0 CD19 22 CD19+CD5+ 0 CD20 22 CD23 14 CD33 0 CD34 0 CD38 46 CD45 100 CD56+CD3- 13 CD64 0 CD117 0 HLA_DR 25 Brinckerhoff CD19+ 10 Lambda CD19+ 9 K/L Ratio 1.11 This test was developed and its analytical performance characteristics have been determined by [facility], [place], [place]. It has not been cleared or approved by the U.S. Food and Drug Administration. This assay has been validated pursuant to the CLIA regulations and is used for clinical purposes. NUMBER OF MARKERS: 22 Test Performed by [facility], [employer] [facility], [address] [place], [place] Noe Hernandez M.D., Ph.D., Director of Laboratories , [facility] [id number] 03/08/2025 11:0 7 AM CDT us Almaz Hollins MD LABORATORY Final Result Performing Organization Address City/[facility] Co de Phone Number [employer] [address] , [place] [phone] [facility] [address] [place] [address], [place] [phone] * FLOW CYTOMETRY, PERIPHERAL BLD (03/08/2025 11:07 AM CDT) FLOW CYTOMETRY TEST SENT TO [facility]. RESULTS WILL DISPLAY REF LAB TEST RESULT UNDER MISC TAB WHEN FINALIZED. 03/08/2025 12:12 PM CDT [facility] 03/08/2025 11:0 7 AM CDT us Almaz Hollins MD LABORATORY Final Result Performing Organization Address [facility] Co de Phone Number [facility] [address] [place] [address], [place] [phone] * MISCELLANEOUS LAB TEST (03/08/2025 11:07 AM CDT) TEST NAME: HLA TYPING FOR PLATELETS, ALLOIMMUNIZATION 03/08/2025 8:04 AM CDT [facility] TEST RESULT: SEE BLOOD BANK FOR TESTING RESULTS 03/11/2025 7:37 AM CDT [facility] 03/08/2025 11:0 7 AM CDT us Almaz Hollins MD LABORATORY Final Result Performing Organization Address [facility] de Phone Number [facility] [address] [place] [address], [id number] * (ABNORMAL) RETICULOCYTE CT, AUTO (03/07/2025 11:43 [...] MD LABORATORY Final Result Performing Organization Address [facility] de Phone Number [facility] [address] [place] [address], [id number] * (ABNORMAL) EBV (RHONDA CAMP VIRUS) AB PANEL COMPREHENSIVE (INCL. EARLY AG D AB) (03/07/2025 11:41 PM CDT) [facility] EBV EARLY ANTIGEN-D AB IGG 71.00(H) <9.00 U/mL 03/12/2025 7:03 PM CDT [employer] DAIJA COX Comment: The potential exists for cross-reactivity with HIV (Human Immunodeficiency Virus) which could cause a false positive EBV-EA result. U/mL Interpretation <9.00 Negative 9.00 - 10.99 Equivocal >10.99 Positive EBV VCA IGM <36.00 <36.00 U/mL 03/12/2025 7:03 PM CDT [employer] DAIJA COX Comment: U/mL Interpretation <36.00 Negative 36.00 - 43.99 Equivocal >43.99 Positive RHONDA BAR NUCLEAR ANTIGEN IGG 69.90(H) <18.00 U/mL 03/12/2025 7:03 PM CDT [employer] DAIJA COX Comment: U/mL Interpretation <18.00 Negative 18.00 - 21.99 Equivocal >21.99 Positive EBV VCA IGG 262.00(H) <18.00 U/mL 03/12/2025 7:03 PM CDT [employer] DAIJA COX Comment: U/mL Interpretation <18.00 Negative 18.00 - 21.99 Equivocal >21.99 Positive Test Performed by [employer], [employer] [facility], [address] [place] [address] Noe Hernandez M.D., Ph.D., Director of Laboratories , [facility] [id number] 03/07/2025 11:4 1 PM CDT Wesly Steve MD LABORATORY Final Result [facility] [address], * [id number] ACT W/RFLX INHIBITOR (03/07/2025 11:41 PM CDT) [id number] ACTIVITY 0.79 0.68 - 1.63 IU/mL 03/10/2025 3:29 PM CDT [employer] DAIJA COX Comment: Activity levels below 0.10 IU/mL are seen in acquired and hereditary thrombotic thrombocytopenic purpura (TTP). Not all patients with TTP will exhibit low levels of NWTUHE41 activity with this assay, i.e., post bone marrow transplantation, drug-induced TTP, and mutations of HKGVVA42 at the CUB domain. Recent plasma exchange or immunosuppressive therapy may raise the observed activity levels. Mild decreases in TFLKSE12 activity are seen in a wide variety of conditions including metastatic cancer, neonates, serious infections and cirrhosis of the liver. For more information on this test, go to http://education.[employer]/faq/CRF934 Test Performed by [facility], [employer] [facility], [address] [place] [address] Noe Hernandez M.D., Ph.D., Director of Laboratories , [facility] [id number] 03/07/2025 11:4 1 PM CDT Wesly Steve MD LABORATORY Final Result Performing Organization Address [facility]/ZIP Co de Phone Number [employer] [place] [id number] [place], [place] , [place] [phone] * (ABNORMAL) PROCALCITONIN (PCT) (03/07/2025 11:41 PM CDT) PROCALCITONIN 2.85(H) 0.00 - 0.49 NG/ML 03/08/2025 1:14 PM CDT [facility] Comment: VALUES ABOVE 2.00 NG/ML ARE HIGHLY SUGGESTIVE OF SEPSIS OR OTHER SEVERE BACTERIAL INFECTION. 03/07/2025 11:4 1 PM CDT us Wesly Steve MD LABORATORY Final Result [facility] [address] [place] [address], [place] [phone] * (ABNORMAL) TSH W/REFLEX (03/07/2025 11:41 PM CDT) TSH 0.250(L) 0.358 - 3.740 uIU/ML 03/08/2025 12:47 AM CDT [facility] Comment: ASSAY PERFORMED BY CHEMILUMINESCENCE METHODOLOGY USING [employer]. PATIENT RESULTS DETERMINED BY ASSAYS USING DIFFERENT MANUFACTURERS FOR METHODS MAY NOT BE COMPARABLE. 03/07/2025 11:4 1 PM CDT us Wesly Steve MD LABORATORY Final Result Performing Organization Address City/[facility]/ZIP Co de Phone Number [facility] [address] [place] [address], [id number] * CMV DNA QUANT REAL TIME PCR (03/07/2025 11:41 PM CDT) Pathologist [facility] SPECIMEN SOURCE EDTA PLASMA 03/08/20 8:43 AM CDT [facility] CMV DNA QN PCR (BLD) Not Detected IU/mL 03/10/2025 6:53 PM CDT [facility] TerrajouleADRIAN LLY CMV DNA QUANT PCR (BLD) Not Detected log IU/mL 03/10/2025 6:53 PM CDT [facility] [employer]ON[employer] InnovationADRIAN LLY Comment: REFERENCE RANGE: NOT DETECTED For additional information, please refer to http://education.[employer].RADEUM/faq/CMVandEBVPCR (This link is being provided for informational/ educational purposes only.) Test Performed by [employer], [employer] [place], [address] [place] [address] Noe Hernandez M.D., Ph.D., Director of Laboratories , [facility] [id number] 03/07/2025 11:4 1 PM CDT us Wesly Steve MD LABORATORY Final Result Performing Organization Address City/[facility]/ZIP Co de Phone Number [employer] [address], [place] [phone] [facility] [address] [place] [address], [place] [phone] * (ABNORMAL) IRON SATURATION PANEL (FE,IBC,%SAT) (03/07/2025 [...] LABORATORY Final Result [facility] [address] [place] [address], [id number] * VITAMIN B-12 (03/07/2025 11:41 PM CDT) Pathologist [facility] VITAMIN B12 S/P/B 511 193 - 986 PG/ML 03/08/2025 12:35 AM CDT [facility] 03/07/2025 11:4 1 PM CDT us Wesly Steve MD LABORATORY Final Result [facility] [address] [place] [address], [id number] * SED RATE, ERYTHROCYTE (ESR,WSR) (03/07/2025 11:41 PM CDT) Pathologist [facility] ESR 15 0 - 20 MM/HR 03/08/2025 12:03 AM CDT [facility] 03/07/2025 11:4 1 PM CDT Wesly Steve MD LABORATORY Final Result [facility] [address] [place] [address], [id number] * (ABNORMAL) COMPREHENSIVE METABOLIC PANEL (03/07/2025 11:41 [...] NOTES GFR REFERENCE S: 03/08/2025 12:47 AM [facility] Comment: THE ESTIMATED GFR IS [...] LABORATORY Final Result [facility] [address] [place] [address], [place] [phone] [id number] * (ABNORMAL) LDH, LACTATE DEHYDROGENASE (03/07/2025 11:41 PM CDT) Pathologist [facility] LDH 249(H) 84 - 246 UNITS/L 03/08/2025 12:47 AM CDT [facility] 03/07/2025 11:4 1 PM CDT Wesly Steve MD LABORATORY Final Result [facility] [address] [place] [address], [id number] * (ABNORMAL) DIC PANEL (03/07/2025 11:41 PM [...] MD LABORATORY Final Result Performing Organization Address City/[facility]/ZIP Co de Phone Number [facility] [address] [place] [address], [place] [phone] [phone] * (ABNORMAL) C-REACTIVE PROTEIN (03/07/2025 11:41 PM CDT) C-REACTIVE PROTEIN 2.96(H) <0.80 mg/dL 03/08/2025 12:47 AM CDT [facility] 03/07/2025 11:4 1 PM CDT us Wesly Steve MD LABORATORY Final Result Performing Organization Address [facility] Co de Phone Number [facility] [address] [place] [address], [place] [phone] * BLOOD SMEAR PERIPHERAL INTERP PHYS W/WRIT REPORT (03/07/2025 11:41 PM CDT) CBC PATHOLOGIST COMMENT SENT TO PATHOLOGIST FOR REVIEW 03/08/2025 3:04 PM CDT [facility] 03/07/2025 11:4 1 PM CDT us Wesly Steve MD LABORATORY Final Result Performing Organization Address [facility]/ZIP Co de Phone Number [facility] [address] [place] [address], [place] [phone] [id number] * FOLIC ACID SERUM (03/07/2025 11:41 PM CDT) FOLATE 5.2 3.1 - 17.5 NG/ML 03/08/2025 12:35 AM CDT [facility] 03/07/2025 11:4 1 PM CDT Wesly Steve MD LABORATORY Final Result Performing Organization Address City/[facility] Co de Phone Number [facility] [address] [place] [address], [id number] * (ABNORMAL) THYROXINE, FREE (FT4) (03/07/2025 11:41 PM CDT) FREE T4 1.55(H) 0.76 - 1.46 NG/DL 03/08/2025 1:05 AM CDT [facility] 03/07/2025 11:4 1 PM CDT Wesly Steve MD LABORATORY Final Result Performing Organization Address [facility] de Phone Number [facility] [address] [place] [address], [place] [phone] * Pathology (03/07/2025 12:00 AM CDT) PATHOLOGY [facility] Department of Laboratory Medicine [address] [place] [address] , extension [phone] Pathology Report Peripheral Smear Report Name: IVETH BOOGIE Specimen #: [id number] Age: 6 1965 (Age: 60) Location: [facility] Sex: F Procedure Date: 03/07/2025 Hospital #: [id number] Date Received: 03/08/2025 Date Reported: 03/08/2025 Provider: [...] 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 [id number] testing is pending at the time of [...] Interpretation and sign out were performed at [address], [address] [place] [address]. [facility] 03/07/2025 03/08/2025 7:5 2 AM CDT Comment:Peripheral blood us Wesly Steve MD PATHOLOGY/CYTOLOGY ORDERABLES F inal Result [facility] [address] [place] [address], [id number] * PROTIME/INR, VENOUS (01/26/2025 3:25 PM CDT) PROTIME 11.9 9.4 - 12.5 SEC 01/26/2025 3:40 PM CDT [facility] INR 1.0 0.8 - 1.0 01/26/2025 3:40 PM CDT [facility] 01/26/2025 3:25 PM CDT Bharat Young DO LABORATORY Final Result [facility] [address] [place] [address], [place] [phone] from Last 3 Months Insurance MEDICAID MEDICARE Advance Directives * Full Code (Latest Code Status on File) Date Activated Date Inactivated Comments 03/07/2025 10:49 PM 03/12/2025 8:04 PM Care Teams Balancer Relationship Specialty Start Date End Date Reagan Fonseca MD [address] [place] [address] PCP - General FAMILY PRACTICE 01/26/25
--- OUTSIDE RECORDS SUMMARY | 2025-03-28 10:43 | XMS_ITS ---
Author Organization Unknown Address [address] [place] [address] [phone] Phone Care Team Providers Care Chief Clinical Dietitian Name Role Phone PIPPA GREGORIONISHA Attending Unavailable JOHAN SULLIVAN Primary Unavailable Immunization Immunization Date Status Additional Notes Code Code System Tdap 03/26/2021 Completed 115 CVX Social History Type Status Start Date End Date Code Code Syst em Smoking History Unknown if ever smoked [id number] Sex Female Vital Signs Vital Sign Value Unit Phillips Value Phillips Unit Date/Time Recent/Initial? Code Code System Body Mass Index 34.97 kg/m2 02/04/2025 09:56 Initial 97343 -5 [facility] Systolic Blood Pressure 168 mm[Hg] 02/04/2025 09:53 Initial 8480- 6 LOINC Diastolic Blood Pressure 73 mm[Hg] 02/04/2025 09:53 Initial 8462- 4 INC Body Surface Area 2.24 m2 02/04/2025 09:56 Initial 3140- 1 LOINC Height 172.720 0 cm 68.00 in 02/04/2025 09:56 Initial 8302- 2 LOINC O2 Saturation 100 % 2024 09:53 Initial 29449 -5 LOINC Pulse 99.0 /min 02/04/2025 09:53 Initial 8867- 4 LOINC Respiration 22 /min 02/05/20 09:53 Initial 9279- 1 LOINC Temperature 36.3 Freda 97.3 F 02/05/20 09:53 Initial 8310- 5 LOINC Weight 104.33 kg 230.00 lbs 02/04/2025 09:56 Initial 50308 -7 INC Hospital Discharge Instructions Should you have any questions prior to discharge, please contact a member of your healthcare team. If you have left the hospital and have any questions, please contact your primary care physician. Reason For Referral No Data Found Plan of Treatment Picc Line Removal 03/27/2025 PICC Line Placement 03/27/2025 US Venous Right UE ([id number]) 03/27/2025 Encounters Encounter Diagnosis Start Date Code Code Sys tem Myelodysplastic syndrome, unspecified 02/04/2025 SNOMED-CT Personal Care Team Section Performer Name Performer Role Active Date Inactive LAURIE Hidalgo PCP - Primary care physician
[2025-03-28 11:25] LABS: Hematocrit 21.5 % (35.0-49.0); Mean Corpuscular HGB Conc 31.6 g/dL (32-36); Mean Corpuscular Hemoglobin 29.1 pg (27.0-31.0); Mean Corpuscular Volume 91.9 fL (78.0-102.0); Platelet Count Result 149 K/mm3 (150-420); Red Blood Count 2.34 M/mm3 (4.20-5.40)
--- OUTSIDE RECORDS SUMMARY | 2025-03-28 11:31 | XMS_ITS | Clinical Summary ---
Author Organization [facility] Address Formerly [facility], [facility] [place] [address] Care Team Providers Care Atmospheric Technician Name Role Phone Reagan Fonseca MD Primary Care Provider [phone] Allergies Active Allergy Reactions Criticality Noted Date [...] - 03/12/2025 5:58 PM CDT Hospital Encounter [facility] [address] [place] [address] Hansel Strickland MD Sheikh, MD Kory Alonso, MD Marcelle Discharge Disposition: Home or Self Care (Routine Discharge) 03/07/2025 Travel 01/26/2025 2:50 PM CDT - 01/26/2025 8:40 PM CDT Emergency [facility] [place] [address] Bharat Young, Medical Problem Discharge Disposition: Home [...] from your doctor or pharmacy? Rarely 03/08/2025 [facility] Utilities Answer Date Recorded In the past 12 months has e [employer], [employer], or water [employer] threatened to shut off services in your [...] week 03/08/2025 How often do you attend scientologist or nondenominational serv ices? Never 03/08/2025 Do you belong to any clubs o r organizations such as scientologist groups, unions, fraternal or athletic groups, or [...] medical care, and heating? Patient declined 03/08/2025 [facility] - Occupational Stress Questionnaire [...] any time in the past 12 m [facility], were you homeless or living in a retirement (including now)? No 03/08/2025 Comments No Sex [...] SERUM Routine 03/07/2025 11:4 1 PM CDT [id number] ACT W/RFLX INHIBITOR Routine 03/07/2025 11:41 PM [...] 70 - 109 03/12/2025 4:08 PM CDT [facility] 03/12/2025 4:04 PM CDT Marcelle Rich MD POCT ORDERABLES - DEVICE Final R esult [facility] [address] [place] [address], [id number] * TRANSFUSE PLATELET PHERESIS (03/12/2025 1:41 PM CDT) Only the most recent of4 resultswithin the time period is included. Phani Sarmiento MD NURSING TREATMENT ORDERAB LES - BLOOD ADMIN Final Result * TYPE & SCREEN (03/12/2025 11:15 AM CDT) Only the most recent of3 resultswithin the time period is included. UNITS ORDERED 1 03/12/2025 11:01 AM CDT [facility] ABO/RH A POSITIVE 03/12/2025 1:38 PM CDT [facility] ANTIBODY SCREEN NEGATIVE 1:38 PM CDT [facility] SAMPLE EXPIRATION 03/15/2025,2359 03/12/2025 12:56 PM CDT [facility] BLOOD UNIT NUMBER [id number] 03/12/2025 1:38 PM CDT [facility] PRODUCT: PC LEUKOPOOR 03/12/2025 1:38 PM CDT [facility] UNIT DIVISION 00 03/12/2025 1:38 PM CDT [facility] BLOOD UNIT STATUS TRANSFUSED,FINAL 03/13/2025 6:44 AM CDT [facility] ISSUE DATE/TIME [id number] 025 6:44 AM CDT [facility] PRODUCT CODE [id number] 03/13/2025 6:44 AM CDT [facility] ABO/RH Unit A POS 03/13/2025 6:44 AM CDT [facility] ABO/RH UNIT ISBT CODE [id number] 03/13/2025 6:44 AM CDT [facility] BLOOD UNIT EXPIRATION DATE [id number] 03/13/2025 6:44 AM CDT [facility] TRANSFUSION STATUS OK TO TRANSFUSE 03/12/2025 1:38 PM CDT [facility] CROSSMATCH COMPATIBLE-EXM 03/12/2025 1:38 PM CDT [facility] 03/12/2025 11:1 5 AM CDT Marcelle Rich MD BLOOD BANK TEST ORDERABLES Final Result [facility] [address] [place] [address], [id number] * ORDER PLATELET PHERESIS, 1 Units (03/12/2025 6:46 AM CDT) Only the most recent of3 resultswithin the time period is included. UNITS ORDERED 1 03/12/2025 6:46 AM CDT [facility] BLOOD UNIT NUMBER [id number] 03/12/2025 9:57 AM CDT [facility] PRODUCT: PLT PHERESIS LEUKORED 7D BAG 2 03/12/2025 9:57 AM CDT [facility] UNIT DIVISION 00 03/12/2025 9:57 AM CDT [facility] BLOOD UNIT STATUS TRANSFUSED,FINAL 03/13/2025 6:44 AM CDT [facility] ISSUE DATE/TIME [id number] 025 6:44 AM CDT [facility] PRODUCT CODE [id number] 03/13/2025 6:44 AM CDT [facility] ABO/RH Unit AB POS 03/13/2025 6:44 AM CDT [facility] ABO/RH UNIT ISBT CODE [id number] 03/13/2025 6:44 AM CDT [facility] BLOOD UNIT EXPIRATION DATE [id number] 03/13/2025 6:44 AM CDT [facility] TRANSFUSION STATUS OK TO TRANSFUSE 03/12/2025 9:57 AM CDT [facility] 03/12/2025 6:46 AM CDT Phani Sarmiento MD BLOOD BANK PRODUCT ORDERA BLES Final Result [facility] [address] [place] [address], [id number] * (ABNORMAL) CBC W/DIFF AUTOMATED (03/12/2025 3:50 AM CDT) Only the most recent of7 resultswithin the time period is included. WBC 0.54(L) 4.00 - 10.80 x10'3/uL 03/12/2025 4:53 AM CDT [facility] RBC 2.40(L) 4.10 - 5.40 x10'6/uL 03/12/2025 4:53 AM CDT [facility] HGB 7.1(L) 12.0 - 16.0 G/DL 03/12/2025 4:53 AM CDT [facility] HCT 21.7(L) 36.0 - 47.0 % 03/12/2025 4:53 AM CDT [facility] MCV 90.4 78.0 - 100.0 FL 03/12/2025 4:53 AM CDT [facility] MCH 29.6 27.0 - 31.0 PG 03/12/2025 4:53 AM CDT [facility] MCHC 32.7(L) 33.0 - 36.0 G/DL 03/12/2025 4:53 AM CDT [facility] RDW 17.0(H) 11.5 - 14.5 % 03/12/2025 4:53 AM CDT [facility] PLT 9(LL) 150 - 350 x10'3/uL 03/12/2025 6:54 AM CDT [facility] Comment: This result has been called to [id number] by [id number] on 03/12/2025 05:55:00, and has been read back. DIFFERENTIAL TYPE MANUAL DIFFERENTIAL 03/12/2025 6:57 AM CDT [facility] NRBC % 2.0 % 03/12/2025 6:57 AM CDT [facility] SEG NEUTROPHILS 29 % 6:57 AM CDT [facility] LYMPHOCYTES 63 % 03/12/2025 6:57 AM CDT [facility] MONOCYTES 2 % 03/12/2025 6:57 AM CDT [facility] EOSINOPHILS 2 % 03/12/2025 6:57 AM CDT [facility] BASOPHILS 0 % 03/12/2025 6:57 AM CDT [facility] BANDS 2 % 03/12/2025 6:57 AM CDT [facility] ABS. NEUTROPHILS 0.17(LL) 1.60 - 8.30 x10'3/uL 03/12/2025 6:57 AM CDT [facility] Comment: This patient has had a critical value result for this test called within the past 3 months. ABS. LYMPHOCYTES 0.35(L) 0.80 - 4.70 x10'3/uL 03/12/2025 6:57 AM CDT [facility] ABS. MONOCYTES 0.01 0.00 - 1.50 x10'3/uL 03/12/2025 6:57 AM CDT [facility] ABS. EOSINOPHILS 0.01 0.00 - 0.40 x10'3/uL 03/12/2025 6:57 AM CDT [facility] ABS. BASOPHILS 0.00 0.00 - 0.20 x10'3/uL 03/12/2025 6:57 AM CDT [facility] ABS. NUCLEATED RBC'S 0.01 0.00 - 0.01 x10'3/uL 03/12/2025 6:57 AM CDT [facility] RBC MORPHOLOGY SLIDE REVIEWED 2024 6:57 AM CDT [facility] ANISO SLIGHT 03/12/2025 6:57 AM CDT [facility] POIKLO SLIGHT 03/12/2025 6:57 AM CDT [facility] OVALOCYTES PRESENT 03/12/2025 6:57 AM CDT [facility] TEAR DROP PRESENT 03/12/2025 6:57 AM CDT [facility] JOVANNA PRESENT 03/12/2025 6:57 AM CDT [facility] PLT EST. DECREASED 03/12/2025 6:57 AM CDT [facility] 03/12/2025 3:50 AM CDT us Marcelle Rich MD LABORATORY Final Result [facility] [address] [place] [address], [id number] * (ABNORMAL) BASIC METABOLIC PANEL (03/11/2025 9:42 AM CDT) Only the most recent of5 resultswithin the time period is included. SODIUM S/P/B 139 136 - 145 MMOL/L 03/11/2025 10:19 AM CDT [facility] POTASSIUM S/P/B 3.4(L) 3.5 - 5.1 MMOL/L 03/11/2025 10:19 AM CDT [facility] CHLORIDE S/P/B 106 97 - 115 MMOL/L 03/11/2025 10:19 AM T [facility] CO2 27.1 21.0 - 32.0 MMOL/L 03/11/2025 10:19 AM T [facility] GLUCOSE 243(H) 74 - 106 MG/DL 03/11/2025 10:19 AM T [facility] BUN 15 7 - 18 MG/DL 03/11/2025 10:19 AM T [facility] CREATININE S/P/B 0.90 0.55 - 1.02 MG/DL 03/11/2025 10:19 AM T [facility] CALCIUM S/P/B 8.6 8.5 - 10.1 MG/DL 03/11/2025 10:19 AM [facility] ANION GAP 5.9 2.0 - 10.0 MMOL/L 03/11/2025 10:19 AM T [facility] OSMOLALITY (CALC) 297 MOSM/KG 025 10:19 AM [facility] Comment:REFERENCE RANGE NOT ESTABLISHED GFR ESTIMATE 74(L) >90 ML/MIN/1. 73 M2 03/11/2025 10:19 AM T [facility] GFR NOTES GFR REFERENCE S: 03/11/2025 10:19 AM T [facility] Comment: THE ESTIMATED GFR IS [...] MD LABORATORY Final Result Performing Organization Address [facility] de Phone Number [facility] [address] [place] [address], [id number] * PHOSPHORUS, INORGANIC PHOSPHATE (03/10/2025 2:41 AM CDT) PHOSPHORUS 3.5 2.5 - 4.9 MG/DL 03/10/2025 3:34 AM CDT [facility] 03/10/2025 2:41 AM CDT us Marcelle Rich MD LABORATORY Final Result Performing Organization Address [facility] de Phone Number [facility] [address] [place] [address], [place] [phone] * MAGNESIUM (03/10/2025 2:41 AM CDT) MAGNESIUM 1.9 1.6 - 2.6 MG/DL 03/10/2025 3:34 AM CDT [facility] 03/10/2025 2:41 AM CDT us Marcelle Rich MD LABORATORY Final Result Performing Organization Address [facility] de Phone Number [facility] [address] [place] [address], [phone] * (ABNORMAL) Blood gas, venous (03/09/2025 5:27 PM CDT) PH VENOUS 7.39 7.32 - 7.42 03/09/2025 5:37 PM CDT [facility] PCO2 VENOUS 47.7 41.0 - 51.0 MMHG 03/09/2025 5:37 PM CDT [facility] PO2 VENOUS 31.9 25.0 - 40.0 MM HG 03/09/2025 5:37 PM CDT [facility] BICARB VENOUS 28.0 24 - 28 MMOL/L 03/09/2025 5:37 PM CDT [facility] TOTAL CO2 VENOUS 29.5(H) 25.0 - 29.0 MMOL/L 03/09/2025 5:37 PM CDT [facility] BASE EXCESS VENOUS 3.1(H) 0 - 2 MMOL/L 03/09/2025 5:37 PM CDT [facility] O2 SAT VENOUS 56 <75 % 03/09/2025 5:37 PM CDT [facility] 03/09/2025 5:27 PM CDT Marcelle Rich MD LABORATORY Final Result [facility] [address] [place] [address], [id number] * XR CHEST PORTABLE (03/08/2025 11:08 AM CDT) Anatomical Region Laterality Modality Chest Radiographic Aishwarya ging 03/08/2025 12:2 3 PM CDT Impressions 03/08/2025 12:24 PM CDT IMPRESSION: 1. Mild pulmonary vascular congestion. 2. No focal consolidation or pneumothorax. Ordered By: MARCELLE RICH Interpreted By: Bk Perez MD, 03/08/2025 12:23 PM Narrative 03/08/2025 12:24 PM CDT [facility] [address] [place], [place] [address] PROCEDURE: XR CHEST PORTABLE. 03/08/2025 11:06 AM. [...] Procedure Note Bk Perez MD - 03/08/2025 [facility] [address] [place], [place] [address] PROCEDURE: XR CHEST PORTABLE. 03/08/2025 11:06 AM. [...] CDT) TEST NAME: LEUKEMIA LYMPHOMA EVAL TEST [id number] 03/08/2025 1:46 PM CDT [facility] SPECIMEN TYPE PERIPHERAL BLOOD EDTA, ROOM TEMP 03/08/2025 1:46 PM CDT [facility] TEST RESULT: Flexitest 1 03/12/2025 11:42 AM CDT [facility] REGGIE VÁSQUEZ Comment: Flexitest 1 CLINICAL INFORMATION: [...] staining intensity, forward scatter and side scatter. [place] A - Granulocytes Marker Percentage CD2 1 CD3 0 CD4 0 CD5 0 CD7 1 CD8 0 CD10 87 CD11c 96 CD13 91 CD19 0 CD19+CD5+ 0 CD20 0 CD23 1 CD33 3 CD34 0 CD38 2 CD45 100 CD56+CD3- 2 CD64 0 CD117 0 HLA_DR 2 [place] CD19+ 0 Lambda CD19+ 0 K/L Ratio NA [place] B - Lymphocytes Marker Percentage CD2 66 CD3 62 CD4 42 CD5 60 CD7 53 CD8 19 CD10 2 CD11c 6 CD13 0 CD19 22 CD19+CD5+ 0 CD20 22 CD23 14 CD33 0 CD34 0 CD38 46 CD45 100 CD56+CD3- 13 CD64 0 CD117 0 HLA_DR 25 [place] CD19+ 10 Lambda CD19+ 9 K/L Ratio 1.11 This test was developed and its analytical performance characteristics have been determined by [facility], [place], [place]. It has not been cleared or approved by the U.S. Food and Drug Administration. This assay has been validated pursuant to the CLIA regulations and is used for clinical purposes. NUMBER OF MARKERS: 22 Test Performed by [facility], [facility], [address] [place], [place] Noe Hernandez M.D., Ph.D., Director of Laboratories , [facility] [id number] 03/08/2025 11:0 7 AM CDT us Almaz Hollins MD LABORATORY Final Result Performing Organization Address City/[facility] Co de Phone Number [facility] [address] , [place] [phone] [facility] [address] [place] [address], [place] [phone] [id number] * FLOW CYTOMETRY, PERIPHERAL BLD (03/08/2025 11:07 AM CDT) FLOW CYTOMETRY TEST SENT TO [facility]. RESULTS WILL DISPLAY REF LAB TEST RESULT UNDER MISC TAB WHEN FINALIZED. 03/08/2025 12:12 PM CDT [facility] 03/08/2025 11:0 7 AM CDT us Almaz Hollins MD LABORATORY Final Result Performing Organization Address [facility] Co de Phone Number [facility] [address] [place] [address], [place] [phone] * MISCELLANEOUS LAB TEST (03/08/2025 11:07 AM CDT) TEST NAME: HLA TYPING FOR PLATELETS, ALLOIMMUNIZATION 03/08/2025 8:04 AM CDT [facility] TEST RESULT: SEE BLOOD BANK FOR TESTING RESULTS 03/11/2025 7:37 AM CDT [facility] 03/08/2025 11:0 7 AM CDT us Almaz Hollins MD LABORATORY Final Result Performing Organization Address [facility] de Phone Number [facility] [address] [place] [address], [phone] * (ABNORMAL) RETICULOCYTE CT, AUTO (03/07/2025 11:43 PM CDT) Pathologist [facility] % RETICULOCYTE COUNT 0.3(L) 0.6 - 2.3 % 03/08/2025 1:02 AM CDT [facility] ABSOLUTE RETICULOCYTE 0.01(L) 0.02 - 0.10 x10'6/uL 03/08/2025 1:02 AM CDT [facility] IMMATURE RETIC FRACTION 5.1 3.0 - 15.9 % 03/08/2025 1:02 AM CDT [facility] RETIC HGB 37.7(H) 28.0 - 35.0 PG 03/08/2025 1:02 AM CDT [facility] 03/07/2025 11:4 3 PM CDT Wesly Steve MD LABORATORY Final Result Performing Organization Address [facility] de Phone Number [facility] [address] [place] [address], [phone] * (ABNORMAL) EBV (RH[place]AMP VIRUS) AB PANEL COMPREHENSIVE (INCL. EARLY AG D AB) (03/07/2025 11:41 PM CDT) [facility] EBV EARLY ANTIGEN-D AB IGG 71.00(H) <9.00 U/mL 03/12/2025 7:03 PM CDT [facility] DAIJA COX Comment: The potential exists for cross-reactivity with HIV (Human Immunodeficiency Virus) which could cause a false positive EBV-EA result. U/mL Interpretation <9.00 Negative 9.00 - 10.99 Equivocal >10.99 Positive EBV VCA IGM <36.00 <36.00 U/mL 03/12/2025 7:03 PM CDT [facility] DAIJA COX Comment: U/mL Interpretation <36.00 Negative 36.00 - 43.99 Equivocal >43.99 Positive RHONDA BAR NUCLEAR ANTIGEN IGG 69.90(H) <18.00 U/mL 03/12/2025 7:03 PM CDT [facility] DAIJA COX Comment: U/mL Interpretation <18.00 Negative 18.00 - 21.99 Equivocal >21.99 Positive EBV VCA IGG 262.00(H) <18.00 U/mL 03/12/2025 7:03 PM CDT [facility] DAIJA COX Comment: U/mL Interpretation <18.00 Negative 18.00 - 21.99 Equivocal >21.99 Positive Test Performed by [facility], [facility], [address] [place] [address] Noe Hernandez M.D., Ph.D., Director of Laboratories , [facility] [id number] 03/07/2025 11:4 1 PM CDT Wesly Steve MD LABORATORY Final Result [facility] [address] [address], * [id number] ACT W/RFLX INHIBITOR (03/07/2025 11:41 PM CDT) [id number] ACTIVITY 0.79 0.68 - 1.63 IU/mL 03/10/2025 3:29 PM CDT [facility] DAIJA COX Comment: Activity levels below 0.10 IU/mL are seen in acquired and hereditary thrombotic thrombocytopenic purpura (TTP). Not all patients with TTP will exhibit low levels of [id number] activity with this assay, i.e., post bone marrow transplantation, drug-induced TTP, and mutations of VFTGSD14 at the CUB domain. Recent plasma exchange or immunosuppressive therapy may raise the observed activity levels. Mild decreases in ERGSAL56 activity are seen in a wide variety of conditions including metastatic cancer, neonates, serious infections and cirrhosis of the liver. For more information on this test, go to http://education.20:20 Mobile/faq/DPE366 Test Performed by [facility], [facility], [address] [place] [address] Noe Hernandez M.D., Ph.D., Director of Laboratories , [facility] [id number] 03/07/2025 11:4 1 PM CDT Wesly Steve MD LABORATORY Final Result Performing Organization Address [facility]/ZIP Co de Phone Number [facility] [place] [id number] [place], [place] , [place] [phone] * (ABNORMAL) PROCALCITONIN (PCT) (03/07/2025 11:41 PM CDT) PROCALCITONIN 2.85(H) 0.00 - 0.49 NG/ML 03/08/2025 1:14 PM CDT [facility] Comment: VALUES ABOVE 2.00 NG/ML ARE HIGHLY SUGGESTIVE OF SEPSIS OR OTHER SEVERE BACTERIAL INFECTION. 03/07/2025 11:4 1 PM CDT us Wesly Steve MD LABORATORY Final Result [facility] [address] [place] [address], [place] [phone] * (ABNORMAL) TSH W/REFLEX (03/07/2025 11:41 PM CDT) TSH 0.250(L) 0.358 - 3.740 uIU/ML 03/08/2025 12:47 AM CDT [facility] Comment: ASSAY PERFORMED BY CHEMILUMINESCENCE METHODOLOGY USING SIEMENS DIMENSION VISTA REAGENT. PATIENT RESULTS DETERMINED BY ASSAYS USING DIFFERENT MANUFACTURERS FOR METHODS MAY NOT BE COMPARABLE. 03/07/2025 11:4 1 PM CDT us Wesly Steve MD LABORATORY Final Result Performing Organization Address City/[facility]/ZIP Co de Phone Number [facility] [address] [place] [phone], [phone] * CMV DNA QUANT REAL TIME PCR (03/07/2025 11:41 PM CDT) Pathologist [facility] SPECIMEN SOURCE EDTA PLASMA 03/08/20 8:43 AM CDT [facility] CMV DNA QN PCR (BLD) Not Detected IU/mL 03/10/2025 6:53 PM CDT [facility] TechnologiesADRIAN LLY CMV DNA QUANT PCR (BLD) Not Detected log IU/mL 03/10/2025 6:53 PM CDT [facility] LINTONShirley Mae'sADRIAN LLY Comment: REFERENCE RANGE: NOT DETECTED For additional information, please refer to http://education.LoraxAg.LeKiosk/faq/CMVandEBVPCR (This link is being provided for informational/ educational purposes only.) Test Performed by [facility], [facility], [address] [place] [address] Noe Hernandez M.D., Ph.D., Director of Laboratories , [facility] [id number] 03/07/2025 11:4 1 PM CDT us Wesly Steve MD LABORATORY Final Result Performing Organization Address City/[facility]/ZIP Co de Phone Number [facility] [address], [place] [phone] [facility] [address] [place] [address], [place] [phone] * (ABNORMAL) IRON SATURATION PANEL (FE,IBC,%SAT) (03/07/2025 11:41 PM CDT) Pathologist [facility] IRON 53 50 - 170 MCG/DL 03/08/2025 12:47 AM CDT [facility] IRON BINDING CAPACITY 202(L) 250 - 450 MCG/DL 03/08/2025 12:47 AM CDT [facility] IRON SATURATION 26 % 12:47 AM CDT [facility] Comment:REFERENCE RANGE NOT ESTABLISHED 03/07/2025 11:4 1 PM CDT us Wesly Steve MD LABORATORY Final Result [facility] [address] [place] [address], [phone] * VITAMIN B-12 (03/07/2025 11:41 PM CDT) Pathologist [facility] VITAMIN B12 S/P/B 511 193 - 986 PG/ML 03/08/2025 12:35 AM CDT [facility] 03/07/2025 11:4 1 PM CDT us Wesly Steve MD LABORATORY Final Result [facility] [address] [place] [address], [id number] * SED RATE, ERYTHROCYTE (ESR,WSR) (03/07/2025 11:41 PM CDT) Pathologist [facility] ESR 15 0 - 20 MM/HR 03/08/2025 12:03 AM CDT [facility] 03/07/2025 11:4 1 PM CDT Wesly Steve MD LABORATORY Final Result [facility] [address] [place] [address], [id number] * (ABNORMAL) COMPREHENSIVE METABOLIC PANEL (03/07/2025 11:41 PM CDT) SODIUM S/P/B 137 136 - 145 MMOL/L 03/08/2025 12:47 AM CDT [facility] POTASSIUM S/P/B 3.4(L) 3.5 - 5.1 MMOL/L 03/08/2025 12:47 AM CDT [facility] CHLORIDE S/P/B 107 97 - 115 MMOL/L 03/08/2025 12:47 AM CDT [facility] CO2 24.5 21.0 - 32.0 MMOL/L 03/08/2025 12:47 AM CDT [facility] GLUCOSE 261(H) 74 - 106 MG/DL 03/08/2025 12:47 AM CDT [facility] BUN 8 7 - 18 MG/DL 03/08/2025 12:47 AM CDT [facility] CREATININE S/P/B 0.80 0.55 - 1.02 MG/DL 03/08/2025 12:47 AM CDT [facility] CALCIUM S/P/B 8.0(L) 8.5 - 10.1 MG/DL 03/08/2025 12:47 AM CDT [facility] BILIRUBIN TOTAL S/P/B 0.4 0.2 - 1.0 MG/DL 03/08/2025 12:47 AM CDT [facility] ALKALINE PHOSPHATASE S/P/B 71 46 - 118 U/L 03/08/2025 12:47 AM CDT [facility] AST 43(H) 15 - 37 U/L 03/08/2025 12:47 AM CDT [facility] ALT 46 13 - 56 U/L 03/08/2025 12:47 AM T [facility] TOTAL PROTEIN S/P/B 6.5 6.4 - 8.2 G/DL 03/08/2025 12:47 AM CDT [facility] ALBUMIN S/P/B 2.9(L) 3.4 - 5.0 G/DL 03/08/2025 12:47 AM CDT [facility] ANION GAP 5.5 2.0 - 10.0 MMOL/L 03/08/2025 12:47 AM T [facility] OSMOLALITY (CALC) 291 MOSM/KG 025 12:47 AM T [facility] Comment:REFERENCE RANGE NOT ESTABLISHED GFR ESTIMATE 85(L) >90 ML/MIN/1. 73 M2 03/08/2025 12:47 AM T [facility] GFR NOTES GFR REFERENCE S: 03/08/2025 12:47 AM [facility] Comment: THE ESTIMATED GFR IS [...] us Wesly Steve MD LABORATORY Final Result [facility] [address] [place] [address], [place] [phone] [id number] * (ABNORMAL) LDH, LACTATE DEHYDROGENASE (03/07/2025 11:41 PM CDT) Pathologist [facility] LDH 249(H) 84 - 246 UNITS/L 03/08/2025 12:47 AM CDT [facility] 03/07/2025 11:4 1 PM CDT Wesly Steve MD LABORATORY Final Result [facility] [address] [place] [address], [id number] * (ABNORMAL) DIC PANEL (03/07/2025 11:41 PM CDT) Pathologist [facility] PROTIME 12.1 9.4 - 12.5 SEC 03/08/2025 12:11 AM CDT [facility] INR 1.1 0.8 - 1.1 03/08/2025 12:11 AM CDT [facility] PTT 27.3 25.1 - 36.5 SEC 03/08/2025 12:12 AM CDT [facility] FIBRINOGEN 330 200 - 393 MG/DL 03/08/2025 12:10 AM CDT [facility] D-DIMER 932(H) 0 - 500 ng{FEU}/m L 03/08/2025 12:11 AM CDT [facility] [facility] EXCLUSION STATEMENT 03/08/2025 12:11 AM CDT [facility] Comment: D-Dimer values less than [...] - 350 x10'3/uL 03/07/2025 11:58 PM CDT [facility] 03/07/2025 11:4 1 PM CDT us Wesly Steve MD LABORATORY Final Result Performing Organization Address City/[facility]/ZIP Co de Phone Number [facility] [address] [place] [address], [place] [phone] * (ABNORMAL) C-REACTIVE PROTEIN (03/07/2025 11:41 PM CDT) C-REACTIVE PROTEIN 2.96(H) <0.80 mg/dL 03/08/2025 12:47 AM CDT [facility] 03/07/2025 11:4 1 PM CDT us Welsy Steve MD LABORATORY Final Result Performing Organization Address [facility] Co de Phone Number [facility] [address] [place] [address], [place] [phone] * BLOOD SMEAR PERIPHERAL INTERP PHYS W/WRIT REPORT (03/07/2025 11:41 PM CDT) CBC PATHOLOGIST COMMENT SENT TO PATHOLOGIST FOR REVIEW 03/08/2025 3:04 PM CDT [facility] 03/07/2025 11:4 1 PM CDT us Wesly Steve MD LABORATORY Final Result Performing Organization Address [facility]/ZIP Co de Phone Number [facility] [address] [place] [address], [place] [phone] * FOLIC ACID SERUM (03/07/2025 11:41 PM CDT) FOLATE 5.2 3.1 - 17.5 NG/ML 03/08/2025 12:35 AM CDT [facility] 03/07/2025 11:4 1 PM CDT Wesly Steve MD LABORATORY Final Result Performing Organization Address [facility] Co de Phone Number [facility] [address] [place] [address], [phone] * (ABNORMAL) THYROXINE, FREE (FT4) (03/07/2025 11:41 PM CDT) FREE T4 1.55(H) 0.76 - 1.46 NG/DL 03/08/2025 1:05 AM CDT [facility] 03/07/2025 11:4 1 PM CDT Wesly Steve MD LABORATORY Final Result Performing Organization Address [facility] de Phone Number [facility] [address] [place] [address], [place] [phone] * Pathology (03/07/2025 12:00 AM CDT) PATHOLOGY [facility] Department of Laboratory Medicine [address] [place] [address] , extension [phone] Pathology Report Peripheral Smear Report Name: IVETH BOOGIE Specimen #: [id number] Age: 6 1965 (Age: 60) Location: [facility] Sex: F Procedure Date: 03/07/2025 Hospital #: [id number] Date Received: 03/08/2025 Date Reported: 03/08/2025 Provider: [...] 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 [id number] testing is pending at the time of [...] Interpretation and sign out were performed at [address], [address] [place] [address]. [facility] 03/07/2025 03/08/2025 7:5 2 AM CDT Comment:Peripheral blood us Wesly Steve MD PATHOLOGY/CYTOLOGY ORDERABLES F inal Result [facility] [address] [place] [address], [phone] * PROTIME/INR, VENOUS (01/26/2025 3:25 PM CDT) PROTIME 11.9 9.4 - 12.5 SEC 01/26/2025 3:[address] PM [address] [facility] INR 1.0 0.8 - 1.0 01/26/2025 3:[address] [facility] 01/26/2025 3:25 PM CDT Bharat Young DO LABORATORY Final Result [facility] [address] [place] [address], [place] [phone] from Last 3 Months Insurance MEDICAID MEDICARE Advance Directives * Full Code (Latest Code Status on File) Date Activated Date Inactivated Comments 03/07/2025 10:49 PM 03/12/2025 8:04 PM Care Teams Atmospheric Technician Relationship Specialty Start Date End Date Reagan Fonseca MD [address] [place] [address] PCP - General FAMILY PRACTICE 01/26/25
--- OUTSIDE RECORDS SUMMARY | 2025-03-28 11:31 | XMS_ITS | Encounter Summary ---
Author Organization [facility] Address [address] [place] [address] Care Team Providers Care Hearing Aid Assembly Supervisor Name Role Phone Reagan Fonseca MD Primary Care Provider [phone] Encounter Details Date Type Department Care Team (Late st Contact Info) Description 12/03/2017 Abstract [facility] CONVERSION [address] [place] [address] , Generic Conversion, Social History Tobacco Use [...] on filedocumented in this encounter Care Teams Hearing Aid Assembly Supervisor Relationship Specialty Start Date End Date Reagan Fonseca MD [address] [place] [address] PCP - General FAMILY PRACTICE 01/26/25 documented as of this encounter
--- OUTSIDE RECORDS SUMMARY | 2025-03-28 11:31 | XMS_ITS ---
Author Organization Unknown Address [address] [place] [phone] Phone Care Team Providers Care Sap [employer]ico Business Analyst Name Role Phone JOHAN SULLIVAN Attending Unavailable Immunization Immunization Date Status Additional Notes Code Code System Tdap 03/26/2021 Completed 115 CVX Results CBC W/ DIFF - Collect Date/T sarah: 01/08/2025 13:23 [facility] ID: [id number] [address] [place] [address], [phone] LOINC: 21947-3 Test Value Unit Reference Range Code Code [...] H=36.0 L PLATELETS 43 10^3uL L=100 H=400 24438-5 LOINC L RDW 16.1 % L=11.7 H=15.5 H %GRAN L=40.0 H=70.0 68944-0 LOINC %LYMPH L=20.0 H=45.0 736-9 LOINC %MONO L=2.0 H=10.0 00312-7 LOINC %EOS L=0.0 H=6.0 713-8 LOINC %BASO L=0.0 H=3.0 706-2 LOINC #NEUT L=1.9 H=7.6 52693-9 LOINC #LYMPH L=0.9 H=4.9 38347-3 LOINC #MONO L=0.1 H=0.9 22221-1 LOINC #EOS L=0.0 H=0.6 712-0 LOINC #BASO L=0.00 H=0.10 53522-7 LOINC #IM GRANS L=0.0 H=7.0 76800-0 LOINC %IM GRANS L=0.0 H=5.0 91949-8 LOINC %NRB L=0.0 H=0.2 68599-8 LOINC #NRB L=0.000 H=0.012 96644-0 LOINC MANUAL DIFF SEE BELOW A SEG [...] L=0 H=0 BLASTS 0 % L=0 H=0 78527-5 LOINC PANDA LYMPHS 0.00 % L=0.00 H=5.00 SMUDGE CELLS 0 % L=0 H=0 NRBC 0.0 % L=0.0 H=0.0 PLTS DECREASED NEUT # 0.7 10^3uL L=1.9 H=7.6 LL LYMPH # 1.2 10^3uL L=0.9 H=4.9 MONO # 0.0 10^3uL L=0.1 H=0.9 L EOS # 0.1 10^3uL L=0.0 H=0.6 712-0 LOINC BASO # 0.0 10^3uL L=0.0 H=0.1 73941-4 LOINC RBC MORPH NOT INDICATED COMPREHENSIVE METABOLIC PANE L - Collect Date/Time: 01/08/2025 13:23 [facility] ID: [id number] [address] [place], [place], [phone] LOINC: 89650-3 Test Value Unit Reference Range Code Code [...] 2028-9 LOINC ANION GAP 10 L=10 H=20 72967-2 LOINC OSMOLALITY 288 mOs/kG L=280 H=296 12087-0 LOINC BUN/CREAT 13.3 3097-3 LOINC CALCIUM 8.9 mg/dL L=8.3 H=10.5 35571-8 LOINC AST 23 U/L L=15 H=46 1920-8 LOINC ALT 15 U/L L=9 H=72 1742-6 LOINC ALKALINE PHOS 61 U/L L=38 H=126 6768-6 LOINC TOTAL BILI 0.3 mg/dL L=0.2 H=1.3 1975-2 LOINC ALBUMIN 3.9 G/dL L=3.5 H=5.0 1751-7 LOINC TOTAL PROTEIN 7.6 g/L L=6.3 H=8.2 2885-2 LOINC A/G RATIO 1.1 55161-6 LOINC AGE 59 75552-8 LOINC eGFR NON-AFR 69 ml/min eGFR AFR AMER 83 ml/min Social History Type Status Start Date End Date Code Code Syst em Smoking History Unknown if ever smoked [address] Sex Female Hospital Discharge Instructions Should you have any questions prior to discharge, please contact a member of your healthcare team. If you have left the hospital and have any questions, please contact your primary care physician. Reason For Referral No Data Found Plan of Treatment Picc Line Removal 03/27/2025 PICC Line Placement 03/27/2025 US Venous Right UE ([id number]) 03/27/2025 Encounters Encounter Diagnosis Start Date Code Code Sys tem Myelodysplastic syndrome, unspecified 01/08/2025 SNOMED-CT Personal Care Team Section Performer Name Performer Role Active Date Inactive LAURIE Hidalgo PCP - Primary care physician
--- OUTSIDE RECORDS SUMMARY | 2025-03-28 11:31 | XMS_ITS ---
Author Organization Unknown Address [address] [place] [phone] Phone Care Team Providers Care Marble Rubber Name Role Phone PIPPA KNOX Attending Unavailable JOHAN SULLIVAN Primary Unavailable Immunization Immunization Date Status Additional Notes Code Code System Tdap 03/26/2021 Completed 115 CVX Results CBC W/ DIFF - Collect Date/T sarah: 01/23/2025 14:13 [facility] ID: [id number] [address] [place], [place], [phone] LOINC: 93220-2 Test Value Unit Reference Range Code Code [...] H=36.0 L PLATELETS 32 10^3uL L=100 H=400 54152-2 LOINC L RDW 17.1 % L=11.7 H=15.5 H %GRAN L=40.0 H=70.0 12279-9 LOINC %LYMPH L=20.0 H=45.0 736-9 LOINC %MONO L=2.0 H=10.0 51736-7 LOINC %EOS L=0.0 H=6.0 713-8 LOINC %BASO L=0.0 H=3.0 706-2 LOINC #NEUT L=1.9 H=7.6 40433-1 LOINC CALLED TO: CHRISTOPH BillingsleyHONORIO AT: 1448 01/23/25 BY: SDK #LYMPH L=0.9 H=4.9 30155-9 LOINC #MONO L=0.1 H=0.9 55055-1 LOINC #EOS L=0.0 H=0.6 712-0 LOINC #BASO L=0.00 H=0.10 89806-7 LOINC #IM GRANS L=0.0 H=7.0 88132-6 LOINC %IM GRANS L=0.0 H=5.0 67448-4 LOINC %NRB L=0.0 H=0.2 26904-8 LOINC #NRB L=0.000 H=0.012 93030-1 LOINC MANUAL DIFF SEE BELOW A SEG [...] L=0 H=0 BLASTS 0 % L=0 H=0 92981-4 LOINC PANDA LYMPHS 10.00 % L=0.00 H=5.00 H SMUDGE CELLS 0 % L=0 H=0 NRBC 0.0 % L=0.0 H=0.0 PLTS DECREASED NEUT # 0.6 10^3uL L=1.9 H=7.6 LL LYMPH # 1.0 10^3uL L=0.9 H=4.9 MONO # 0.1 10^3uL L=0.1 H=0.9 EOS # 0.1 10^3uL L=0.0 H=0.6 712-0 LOINC BASO # 0.0 10^3uL L=0.0 H=0.1 01060-3 LOINC RBC MORPH NOT INDICATED COMPREHENSIVE METABOLIC PANE L - Collect Date/Time: 01/23/2025 14:13 [facility] ID: [id number] [address] [place], [place], [phone] LOINC: 18035-5 Test Value Unit Reference Range Code Code [...] 2028-9 LOINC ANION GAP 9 L=10 H=20 89362-4 LOINC L OSMOLALITY 291 mOs/kG L=280 H=296 57424-8 LOINC BUN/CREAT 13.8 3097-3 LOINC CALCIUM 8.7 mg/dL L=8.3 H=10.5 28931-7 LOINC AST 20 U/L L=15 H=46 1920-8 LOINC ALT 12 U/L L=9 H=72 1742-6 LOINC ALKALINE PHOS 71 U/L L=38 H=126 6768-6 LOINC TOTAL BILI 0.2 mg/dL L=0.2 H=1.3 1975-2 LOINC ALBUMIN 3.7 G/dL L=3.5 H=5.0 1751-7 LOINC TOTAL PROTEIN 6.8 g/L L=6.3 H=8.2 2885-2 LOINC A/G RATIO 1.2 91057-2 LOINC AGE 59 66453-8 LOINC eGFR NON-AFR 79 ml/min eGFR AFR AMER 96 ml/min BB ABO AND RH TYPE - Collect Date/Time: 01/23/2025 14:13 [facility] ID: [id number] [address] [place], [place], [phone] LOINC: 71614-3 Test Value Unit Reference Range Code Code System Flag ABO TYPE A 883-9 LOINC RH TYPE POSITIVE BB RETYPE ABO AND RH TYPE - Collect Date/Time: 01/23/2025 14:13 [facility] ID: [id number] [address] [place], [place], [phone] LOINC: 63545-2 Test Value Unit Reference Range Code Code System Flag ABO TYPE A 883-9 LOINC RH TYPE POSITIVE Social History Type Status Start Date End Date Code Code Syst em Smoking History Unknown if ever smoked [address] Sex Female Hospital Discharge Instructions Should you have any questions prior to discharge, please contact a member of your healthcare team. If you have left the hospital and have any questions, please contact your primary care physician. Reason For Referral No Data Found Plan of Treatment Picc Line Removal 03/27/2025 PICC Line Placement 03/27/2025 US Venous Right UE ([id number]) 03/27/2025 Encounters Encounter Diagnosis Start Date Code Code Sys tem Myelodysplastic syndrome, unspecified 01/23/2025 SNOMED-CT Personal Care Team Section Performer Name Performer Role Active Date Inactive LAURIE Hidalgo PCP - Primary care physician
--- OUTSIDE RECORDS SUMMARY | 2025-03-28 11:31 | XMS_ITS | Encounter Summary ---
Author Organization [facility] Address [address] [place] [address] Care Team Providers Care Micrographics Services Supervisor Name Role Phone Reagan Fonseca MD Primary Care Provider [phone] Encounter Details Date Type Department Care Team (Late st Contact Info) Description 02/24/2019 Abstract SFL CONVERSION [address] [place] [address] , Generic Conversion, Social History Tobacco Use [...] on filedocumented in this encounter Care Teams Micrographics Services Supervisor Relationship Specialty Start Date End Date Reagan Fonseca MD [address] [place] [address] PCP - General FAMILY PRACTICE 01/26/25 documented as of this encounter
--- OUTSIDE RECORDS SUMMARY | 2025-03-28 11:31 | XMS_ITS ---
Author Organization Unknown Address [address] [place] [phone] Phone Care Team Providers Care Mechanic Recovery Name Role Phone PIPPA KNOX Attending Unavailable JOHAN SULLIVAN Primary Unavailable Immunization Immunization Date Status Additional Notes Code Code System Tdap 03/26/2021 Completed 115 CVX Results US VENOUS RIGHT UE - Complet ed: 03/27/2025 09:54 LOINC: 00199-8 \TM00\\12PI\\DRAo\\BM09\ \MRHo\ [address] [address] ---------NAME--------- NUMBER SEX AGE ADMIT DISC. XRAY# F/C TYPE CHUYITA TONY [id number] F 60 03/27/25 [id number] MB O/P DATE OF : 1965 M/R# [id number] PH#: [phone] RM 26-IF \MRHx\ LOCATION: TRANSCRIBED: 03/27/25 10:23 [place] [address] COMPLETED:03/27/25 9:54 [facility] [address] {REASON-US VENOUS RIGHT UE: MTELODYSPIASTIC SYNDROME PHYSICIAN: [...] or worsen, short-interval follow-up study is suggested. INAL SUPERINTENDENT \ITLo\ \UNDo\ \UNDx\ \ITLx\ Reviewed and Electronically Signed by: Ivan Acosta MD Signed Date: 03/27/25 10:23 03/27/25.1026.AJH.to JOHAN via fax Social History Type Status Start Date End Date Code Code Syst em Smoking History Unknown if ever smoked [id number] Sex Female Vital Signs Vital Sign Value Unit [place] Value [place] Unit Date/Time Recent/Initial? Code Code System Body Mass Index 32.26 kg/m2 03/27/2025 08:53 Initial 35188 -5 LOINC Systolic Blood Pressure 131 mm[Hg] 03/27/2025 08:52 Initial 8480- 6 LOINC Diastolic Blood Pressure 67 mm[Hg] 03/27/2025 08:52 Initial 8462- 4 LOINC Body Surface Area 2.10 m2 03/27/2025 08:53 Initial 3140- 1 LOINC Height 170.180 0 cm 67.00 in 03/27/2025 08:53 Initial 8302- 2 LOINC O2 Saturation 95 % 2024 08:52 Initial 18316 -5 LOINC Pulse 77.0 /min 03/27/2025 08:52 Initial 8867- 4 LOINC Respiration 22 /min 03/27/20 08:52 Initial 9279- 1 LOINC Temperature 36.7 Freda 98.1 F 03/27/20 08:52 Initial 8310- 5 LOINC Weight 93.44 kg 206.00 lbs 03/27/2025 08:53 Initial 29981 -7 LOINC Hospital Discharge Instructions Should you have any questions prior to discharge, please contact a member of your healthcare team. If you have left the hospital and have any questions, please contact your primary care physician. Reason For Referral No Data Found Procedures Procedure Name Date Status Code Code Syste m INSERTION PICC W/RS&I 5 YR/> completed 93552 CPT Plan of Treatment Picc Line Removal 03/27/2025 PICC Line Placement 03/27/2025 US Venous Right UE ([id number]) 03/27/2025 Encounters Encounter Diagnosis Start Date Code Code Sys tem Myelodysplastic syndrome, unspecified 03/27/2025 SNOMED-CT Personal Care Team Section Performer Name Performer Role Active Date Inactive LAURIE Hidalgo PCP - Primary care physician Imaging Narrative Notes [facility] 03/27/2025 10:26 [facility] [address] [place] [address] ---------NAME--------- NUMBER SEX AGE ADMIT DISC. XRAY# F/C TYPE CHUYITA TONY [id number] F 60 03/27/25 24236 MB O/P DATE OF : 1965 M/R# [id number] #: [id number] 26-IF LOCATION: TRANSCRIBED: 03/27/25 10:[place] [address] COMPLETED:03/27/25 9:54 [facility] [address] {REASON-US VENOUS RIGHT UE: MTELODYSPIASTIC SYNDROME PHYSICIAN: [...] or worsen, short-interval follow-up study is suggested. INAL SUPERINTENDENT Reviewed and Electronically Signed by: Ivan Acosta MD Signed Date: 03/27/25 10:23 03/27/25.1026.AJH.david PRADO via fax
--- OUTSIDE RECORDS SUMMARY | 2025-03-28 11:31 | XMS_ITS ---
Author Organization Unknown Address [address] [place] [phone] Phone Care Team Providers Care [employer] Paralegal Name Role Phone PIPPA GREGORIONISHA Attending Unavailable JOHAN SULLIVAN Primary Unavailable Immunization Immunization Date Status Additional Notes Code Code System Tdap 03/26/2021 Completed 115 CVX Social History Type Status Start Date End Date Code Code Syst em Smoking History Unknown if ever smoked [address] Sex Female Vital Signs Vital Sign Value Unit [place] Value [place] Unit Date/Time Recent/Initial? Code Code System Body Mass Index 34.97 kg/m2 02/04/2025 09:56 Initial 03084 -5 [facility] Systolic Blood Pressure 168 mm[Hg] 02/04/2025 09:53 Initial 8480- 6 LOINC Diastolic Blood Pressure 73 mm[Hg] 02/04/2025 09:53 Initial 8462- 4 INC Body Surface Area 2.24 m2 02/04/2025 09:56 Initial 3140- 1 LOINC Height 172.720 0 cm 68.00 in 02/04/2025 09:56 Initial 8302- 2 LOINC O2 Saturation 100 % 2024 09:53 Initial 77637 -5 LOINC Pulse 99.0 /min 02/04/2025 09:53 Initial 8867- 4 LOINC Respiration 22 /min 02/05/20 09:53 Initial 9279- 1 LOINC Temperature 36.3 Freda 97.3 F 02/05/20 09:53 Initial 8310- 5 LOINC Weight 104.33 kg 230.00 lbs 02/04/2025 09:56 Initial 16196 -7 INC Hospital Discharge Instructions Should you have any questions prior to discharge, please contact a member of your healthcare team. If you have left the hospital and have any questions, please contact your primary care physician. Reason For Referral No Data Found Plan of Treatment Picc Line Removal 03/27/2025 PICC Line Placement 03/27/2025 US Venous Right UE (34432) 03/27/2025 Encounters Encounter Diagnosis Start Date Code Code Sys tem Myelodysplastic syndrome, unspecified 02/04/2025 SNOMED-CT Personal Care Team Section Performer Name Performer Role Active Date Inactive LAURIE Hidalgo PCP - Primary care physician
[2025-03-28 11:32] LABS: Hemoglobin 6.8 g/dL (12.0-15.0); White Blood Count 0.6 K/mm3 (4.8-10.8)
--- OUTSIDE RECORDS SUMMARY | 2025-03-28 11:32 | XMS_ITS ---
Author Organization Unknown Address [address] [place] [phone] Phone Care Team Providers Care Twister Frame Tender Name Role Phone JOHAN SULLIVAN Attending Unavailable Immunization Immunization Date Status Additional Notes Code Code System Tdap 03/26/2021 Completed 115 CVX Results US GALLBLADDER - Completed: 12/25/2024 12:00 LOINC: \TM00\\12PI\\DRAo\\BM09\ \MRHo\ [address] [address] ---------NAME--------- NUMBER SEX AGE ADMIT DISC. XRAY# F/C TYPE CHUYITA TONY [id number] F 59 12/25/24 12/25/24 34016 MBJ O/P DATE OF : 1965 M/R# [id number] PH#: [phone] RM \MRHx\ LOCATION: TRANSCRIBED: 12/25/24 13:39 US GALLBLADDER 74273 COMPLETED:12/25/24 12:00 [facility] 40133 {REASON-US ABD: ABDOMINAL PAIN PHYSICIAN: JOHAN R [...] of gallstones or acute cholecystitis. Hepatic steatosis. ON AND BUCKLE MAKER \ITLo\ \UNDo\ \UNDx\ \ITLx\ Reviewed and Electronically Signed by: Ivan Acosta MD Signed Date: 12/25/24 13:39 Social History Type Status Start Date End Date Code Code Syst em Smoking History Unknown if ever smoked [address] Sex Female Hospital Discharge Instructions Should you have any questions prior to discharge, please contact a member of your healthcare team. If you have left the hospital and have any questions, please contact your primary care physician. Reason For Referral No Data Found Plan of Treatment Picc Line Removal 03/27/2025 PICC Line Placement 03/27/2025 US Venous Right UE (57190) 03/27/2025 Encounters Encounter Diagnosis Start Date Code Code Sys tem Fatty (change of) liver, not elsewhere classified 04/2025 SNOMED-CT Personal Care Team Section Performer Name Performer Role Active Date Inactive LAURIE Hidalgo PCP - Primary care physician Imaging Narrative Notes [facility] 12/25/2024 13:42 [facility] [address] [place] [address] ---------NAME--------- NUMBER SEX AGE ADMIT DISC. XRAY# F/C TYPE CHUYITA TONY [id number] F 59 12/25/24 12/25/24 [address] [facility] O/P DATE OF : 1965 M/R# [id number] #: [id number] LOCATION: TRANSCRIBED: 12/25/24 13:39 US GALLBLADDER [address]676 COMPLETED:12/25/24 12:00 [facility] 83874 {REASON-US ABD: ABDOMINAL PAIN PHYSICIAN: JOHAN RADIOLOGY [...] of gallstones or acute cholecystitis. Hepatic steatosis. ON AND BUCKLE MAKER Reviewed and Electronically Signed by: Ivan Acosta MD Signed Date: 12/25/24 13:39
[2025-03-28 11:39] LABS: INR 1.0; Partial Thromboplastin Time 24.7 Sec (23.9-30.70); Prothrombin Time 11.3 Seconds (9.50-12.1)
[2025-03-28 11:41] LABS: Alanine Aminotransferase 9 U/L (6-35); Albumin Level 3.2 g/dL (3.5-5.1); Alkaline Phosphatase 61 U/L (38-126); Anion Gap 3 mmol/L (4-12); Aspartate Amino Transferase 18 U/L (14-36); Bilirubin,Total 0.6 mg/dL (0.2-1.3); Blood Urea Nitrogen 4 mg/dL (7-17); Calcium 8.0 mg/dL (8.4-10.2); Carbon Dioxide 27 mmol/L (22-30); Chloride 108 mmol/L (98-107); Estimated Glomerular Filt Rate > 60; Glucose 111 mg/dL (65-110); Lipase 24 U/L (23-300); Osmolality Calculated 283 mOsm/kg (285-295); Potassium 3.1 mmol/L (3.4-5.0); Sodium 138 mmol/L (137-145); Total Protein 6.6 g/dL (6.3-8.2)
[2025-03-28 11:50] LABS: NT Pro B Type Natriuretic Pept 1620 pg/mL (19.9-100)
[2025-03-28 12:00] LABS: Troponin I 0.016 ng/mL (0.000-0.034)
[2025-03-28 12:07] LABS: Band Neutrophils Percent 2 % (0-6); Eosinophils Absolute Manual 0.00 K/mm3 (0.02-0.50); Eosinophils Percent Manual 1 % (1-6); Lymphocytes Absolute Manual 0.47 K/mm3 (1.1-4.5); Lymphocytes Percent Manual 79 % (18-44); Monocytes Absolute Manual 0.04 K/mm3 (0.1-0.90); Monocytes Percent Manual 7 % (3-9); Neutrophils Absolute Manual 0.07 K/mm3 (1.3-6.7); Neutrophils Percent Manual 11 % (46-73); Schistocytes None Seen; Total Cells Counted 100
[2025-03-28 12:08] LABS: Anisocytosis 2+; Hypochromasia 3+; Poikilocytosis 1+
[2025-03-28] MEDS: POTASSIUM BICARBONATE 25 MEQ TABEF 50 MEQ PO (12:53)
[2025-03-28] MEDS: SODIUM CHLORIDE 0.9% IV 500 ML 200 ML IV CONT (12:54)
[2025-03-28] MEDS: KCL 20 MEQ/SW 100 ML 100 ML 50 MEQ IVPB (12:58)
--- NOTE | 2025-03-28 14:18 | ED_ITS ---
HPI - Chest Pain General Chief Complaint: Chest Pain Stated Complaint: chest pain Time Seen by Provider: 03/28/25 10:56 Source: patient Mode of arrival: ambulatory Limitations: no limitations History of Present Illness HPI narrative: this is a 60-year-old female that was recently diagnosed with mild dysplastic syndrome was in the process of getting an infusion has a PICC line with a clot in the right upper arm and developed some chest discomfort, and was brought over by the infusion center. Patient with no shortness of breath no nausea vomiting no diaphoresis pain in the right chest area, no fever chills no shortness of breath no nausea vomiting no abdominal pain no flank pain no dysuria or hematuria. complaint: chest discomfort Onset (ago): hour(s) Related Data Home Medications ?Medication ?Instructions ?Recorded ?Confirmed ?Last Taken ?Type albuterol sulfate 90 mcg/actuation 90 mcg inhalation Q6H PRN SOB 05/24/24 03/28/25 Unknown History aerosol inhaler omeprazole 40 mg capsule,delayed 40 mg PO DAILY 05/24/24 03/28/25 Unknown History release alprazolam 0.25 mg tablet 0.25 mg PO DAILY PRN anxiety 02/04/25 03/28/25 Unknown History escitalopram oxalate 10 mg tablet 10 mg PO DAILY 02/04/25 03/28/25 Unknown History oxycodone 5 mg tablet 5 mg PO Q6H PRN pain 02/04/25 03/28/25 Unknown History trazodone 100 mg tablet 100 mg PO HS 02/04/25 03/28/25 Unknown History Allergies Allergy/AdvReac Type Severity Reaction Status Date / Time Penicillins Allergy Hives Verified 03/28/25 10:43 codeine AdvReac Nausea Verified 03/28/25 10:43 Review of Systems 2 Review of Systems: All systems reviewed & are unremarkable except as noted in HPI and below PMFSH Past Medical History Medical History MDS (myelodysplastic syndrome) Abdominal pain Bronchitis COPD (chronic obstructive pulmonary disease) Type 2 diabetes mellitus Social History Social History Smoking packs per day: 1.5 Smoking cigarettes per day: 30.0 Years smoked: 35 Smoking pack-years: 52.50 Smoking status: Current every day smoker Tobacco type: cigarettes Second hand tobacco smoke exposure: Yes Alcohol intake: never Substance use: never Substance use type: does not use Do You Feel Safe in your Home?: Yes Lack of Transportation: No Lack of Food: Never True Current Housing: I Have Housing Concerned About Future Housing: No Difficulty Paying Gas/Electric Bills: No Difficulty Paying for Meds: No Currently Unemployed: No Education: Grade School Difficulty w/ Childcare or Family Care: No Living arrangements: with family Spiritual care concerns: No Exam 2 Const: General: healthy appearing and no acute distress Nutritional Appearance: well nourished Orientation/consciousness: patient oriented x3 Limitations: no limitations Eyes: Conjunctivae: conjunctivae normal Pupils: Equal, round and reactive pupils present EOM: EOMs intact bilaterally Neck: Neck: normal visual inspection Chest: Chest palpation & inspection: normal inspection of the chest Resp: Effort & Inspection: normal respiratory effort Auscultation: clear to auscultation bilaterally Cardio: Rate: regular rate Rhythm: regular rhythm GI: Auscultation: normal bowel sounds Skin: General skin exam: normal color Rashes: no rashes Wounds: no wounds Neuro: General: patient oriented x3, moves all extremities, no meningeal signs and no focal motor deficits Extrem: General: normal to inspection, no clubbing, cyanosis or edema and no pedal edema Course Course Emergency Course: patient in the Infusion Center developed chest heaviness has a clot in the right upper arm and the oncologist concerned about pulmonary embolism, CTA performed shows no acute embolism, EKG performed shows no ST or T changes troponin was negative, potassium was 3.1 patient received K rider and oral potassium. Will discharge and have patient go back to the infusion center to continue her infusion. Vital Signs Vital signs: Vital Signs Temperature 36.2 C L 03/28/25 10:41 Pulse Rate 76 03/28/25 10:41 Respiratory Rate 18 03/28/25 10:41 Blood Pressure 161/86 H 03/28/25 10:41 Pulse Oximetry 97 03/28/25 10:41 Oxygen Delivery Room Air 03/28/25 10:41 Temperature 36.2 C L 03/28/25 10:41 Pulse Rate 76 03/28/25 10:41 Respiratory Rate 18 03/28/25 10:41 Blood Pressure 161/86 H 03/28/25 10:41 Pulse Oximetry 96 03/28/25 10:49 Oxygen Delivery Room Air 03/28/25 10:49 MDM - Chest Pain Lab Data 03/28/25 11:14 03/28/25 11:14 Labs: Lab Results 03/28/25 03/28/25 Range/Units 11:14 14:04 WBC 0.6 L* (4.8-10.8) K/mm3 RBC 2.34 L (4.20-5.40) M/mm3 Hgb 6.8 L* (12.0-15.0) g/dL Hct 21.5 L (35.0-49.0) % MCV 91.9 (78.0-102.0) fL MCH 29.1 (27.0-31.0) pg MCHC 31.6 L (32-36) g/dL RDW 18.7 H (11.6-14.4) % Plt Count 149 L (150-420) K/mm3 MPV 9.8 (9.2-11.8) fl Immature Gran % (Auto) Not Reportable Neut % (Auto) Not Reportable Lymph % (Auto) Not Reportable [place] % (Auto) Not Reportable Eos % (Auto) Not Reportable Baso % (Auto) Not Reportable Lymph # (Auto) Not Reportable [place] # (Auto) Not Reportable Eos # (Auto) Not Reportable Baso # (Auto) Not Reportable Abs Immat Gran (auto) Not Reportable Absolute Neuts (auto) Not Reportable Absolute Nucleated RBC Not Reportable Total Counted 100 Neutrophils % (Manual) 11 L (46-73) % Band Neutrophils % 2 (0-6) % Lymphocytes % (Manual) 79 H (18-44) % Monocytes % (Manual) 7 (3-9) % Eosinophils % (Manual) 1 (1-6) % Nucleated RBC % Not Reportable Abs Neuts (Manual) 0.07 L* (1.3-6.7) K/mm3 Abs Lymphs (Manual) 0.47 L (1.1-4.5) K/mm3 Abs Monocytes (Manual) 0.04 L (0.1-0.90) K/mm3 Absolute Eos (Manual) 0.00 L (0.02-0.50) K/mm3 Platelet Estimate Adequate (Adequate) Hypochromasia 3+ Poikilocytosis 1+ Anisocytosis 2+ Schistocytes None seen PT 11.3 (9.50-12.1) Seconds INR 1.0 APTT 24.7 (23.9-30.70) Sec Sodium 138 (137-145) mmol/L Potassium 3.1 L (3.4-5.0) mmol/L Chloride 108 H (98-107) mmol/L Carbon Dioxide 27 (22-30) mmol/L Anion Gap 3 L (4-12) mmol/L BUN 4 L (7-17) mg/dL Creatinine 0.66 L (0.7-1.0) mg/dL Estim Creat Clear Calc Not Reportable Estimated GFR > 60 (59 - ) Glucose 111 H (65-110) mg/dL Calculated Osmolality 283 L (285-295) mOsm/kg Calcium 8.0 L (8.4-10.2) mg/dL Total Bilirubin 0.6 (0.2-1.3) mg/dL AST 18 (14-36) U/L ALT 9 (6-35) U/L Alkaline Phosphatase 61 (38-126) U/L Troponin I 0.016 Pending (0.000-0.034) ng/mL NT-Pro-B Natriuret Pep 1620 H (19.9-100) pg/mL Total Protein 6.6 (6.3-8.2) g/dL Albumin 3.2 L (3.5-5.1) g/dL Lipase 24 (23-300) U/L Critical Care Time Critical Care Time Critical Care Time: No Discharge Plan Discharge Clinical Impression: Atypical chest pain, MDS (myelodysplastic syndrome), Acute hypokalemia Patient Disposition: Home Condition: Stable Instructions: Antibiotic Form, Chest Pain (ED) Additional Instructions: advised patient to return to infusion center complete her infusion, and follow with primary care physician within the next 3 to 5 days for further evaluation and treatment. Patient Language: Occitan Prescriptions: No Action alprazolam 0.25 mg tablet 0.25 mg PO DAILY PRN (Reason: anxiety) escitalopram oxalate 10 mg tablet 10 mg PO DAILY oxycodone 5 mg tablet 5 mg PO Q6H PRN (Reason: pain) trazodone 100 mg tablet 100 mg PO HS omeprazole 40 mg capsule,delayed release(DR/EC) 40 mg PO DAILY albuterol sulfate 90 mcg/actuation HFA aerosol inhaler 90 mcg INHALATION Q6H PRN (Reason: SOB) fexofenadine [Allergy Relief (fexofenadine)] 60 mg tablet 60 mg PO Q12H Qty: 60 2RF (DME) nebulizers [MC 300 Nebulizer w-Mouthpiece] Misc See Rx Instructions .Route Qty: 1 0RF Rx Instructions: As directed (DME) nebulizer accessories Kit See Rx Instructions .Route Qty: 1 0RF Rx Instructions: As directed Follow-up/Referrals: Reagan Fonseca MD [Primary Care Provider] - Time of Disposition: 14:22
--- NOTE | 2025-03-28 14:24 | PC.NURSE ---
Per ERP stop potassium and discharge patient. She is to go to outpatient infusion for blood and chemo treatment.
[2025-03-28 14:32] LABS: Troponin I 0.030 ng/mL (0.000-0.034)
== END 2025-03-28 14:25 | disposition home or self-care (01) ==
PROVIDERS: Emergency Provider Emergency Medicine; PCP Family Medicine
DX: D46.9 Myelodysplastic syndrome, unspecified (principal); E87.6 Hypokalemia; R07.89 Other chest pain; E11.9 Type 2 diabetes mellitus without complications; J44.9 Chronic obstructive pulmonary disease, unspecified; F17.210 Nicotine dependence, cigarettes, uncomplicated; Z79.899 Other long term (current) drug therapy; Z79.891 Long term (current) use of opiate analgesic
CPT/HCPCS: 36415; 71275; 80053; 83690; 83880; 84484; 85025; 85610; 85730; 93005; 96365; 96366; 99284; A9270; J3480; J7040; Q9967

== ENCOUNTER 2025-03-29 10:36 | Outpatient (CLI) | payer MEDICARE, SELFPAY ==
--- OUTSIDE RECORDS SUMMARY | 2025-03-29 10:41 | XMS_ITS | Clinical Summary ---
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 [address] [place] [address] Hansel Strickland MD Sheikh, MD Kory Alonso, MD Marcelle Discharge Disposition: Home or Self Care (Routine Discharge) 03/07/2025 Travel 01/26/2025 2:50 PM CDT - 01/26/2025 8:40 PM CDT Emergency [facility] [place] [address] Bharat Young, Medical Problem Discharge Disposition: Home [...] from your doctor or pharmacy? Rarely 03/08/2025 [facility] Utilities Answer Date Recorded In the past 12 months has e [employer], [employer], or water [employer] threatened to shut off services in your [...] week 03/08/2025 How often do you attend episcopal or latter-day serv ices? Never 03/08/2025 Do you belong to any clubs o r organizations such as episcopal groups, unions, fraternal or athletic groups, or [...] medical care, and heating? Patient declined 03/08/2025 [facility] - Occupational Stress Questionnaire [...] any time in the past 12 m [facility], were you homeless or living in a prison (including now)? No 03/08/2025 Comments No Sex [...] SERUM Routine 03/07/2025 11:4 1 PM CDT [id number] ACT W/RFLX INHIBITOR Routine 03/07/2025 11:41 PM [...] 70 - 109 03/12/2025 4:08 PM CDT [facility] 03/12/2025 4:04 PM CDT Marcelle Rich MD POCT ORDERABLES - DEVICE Final R esult [facility] [address] [place] [address], [id number] * TRANSFUSE PLATELET PHERESIS (03/12/2025 1:41 PM CDT) Only the most recent of4 resultswithin the time period is included. Phani Sarmiento MD NURSING TREATMENT ORDERAB LES - BLOOD ADMIN Final Result * TYPE & SCREEN (03/12/2025 11:15 AM CDT) Only the most recent of3 resultswithin the time period is included. UNITS ORDERED 1 03/12/2025 11:01 AM CDT [facility] ABO/RH A POSITIVE 03/12/2025 1:38 PM CDT [facility] ANTIBODY SCREEN NEGATIVE 1:38 PM CDT [facility] SAMPLE EXPIRATION 03/15/2025,2359 03/12/2025 12:56 PM CDT [facility] BLOOD UNIT NUMBER [id number] 03/12/2025 1:38 PM CDT [facility] PRODUCT: PC LEUKOPOOR 03/12/2025 1:38 PM CDT [facility] UNIT DIVISION 00 03/12/2025 1:38 PM CDT [facility] BLOOD UNIT STATUS TRANSFUSED,FINAL 03/13/2025 6:44 AM CDT [facility] ISSUE DATE/TIME [id number] 025 6:44 AM CDT [facility] PRODUCT CODE [id number] 03/13/2025 6:44 AM CDT [facility] ABO/RH Unit A POS 03/13/2025 6:44 AM CDT [facility] ABO/RH UNIT ISBT CODE [id number] 03/13/2025 6:44 AM CDT [facility] BLOOD UNIT EXPIRATION DATE [id number] 03/13/2025 6:44 AM CDT [facility] TRANSFUSION STATUS OK TO TRANSFUSE 03/12/2025 1:38 PM CDT [facility] CROSSMATCH COMPATIBLE-EXM 03/12/2025 1:38 PM CDT [facility] 03/12/2025 11:1 5 AM CDT Marcelle Rich MD BLOOD BANK TEST ORDERABLES Final Result [facility] [address] [place] [address], [id number] * ORDER PLATELET PHERESIS, 1 Units (03/12/2025 6:46 AM CDT) Only the most recent of3 resultswithin the time period is included. UNITS ORDERED 1 03/12/2025 6:46 AM CDT [facility] BLOOD UNIT NUMBER [id number] 03/12/2025 9:57 AM CDT [facility] PRODUCT: PLT PHERESIS LEUKORED 7D BAG 2 03/12/2025 9:57 AM CDT [facility] UNIT DIVISION 00 03/12/2025 9:57 AM CDT [facility] BLOOD UNIT STATUS TRANSFUSED,FINAL 03/13/2025 6:44 AM CDT [facility] ISSUE DATE/TIME [id number] 025 6:44 AM CDT [facility] PRODUCT CODE [id number] 03/13/2025 6:44 AM CDT [facility] ABO/RH Unit AB POS 03/13/2025 6:44 AM CDT [facility] ABO/RH UNIT ISBT CODE [id number] 03/13/2025 6:44 AM CDT [facility] BLOOD UNIT EXPIRATION DATE [id number] 03/13/2025 6:44 AM CDT [facility] TRANSFUSION STATUS OK TO TRANSFUSE 03/12/2025 9:57 AM CDT [facility] 03/12/2025 6:46 AM CDT Phani Sarmiento MD BLOOD BANK PRODUCT ORDERA BLES Final Result [facility] [address] [place] [address], [id number] * (ABNORMAL) CBC W/DIFF AUTOMATED (03/12/2025 3:50 AM CDT) Only the most recent of7 resultswithin the time period is included. WBC 0.54(L) 4.00 - 10.80 x10'3/uL 03/12/2025 4:53 AM CDT [facility] RBC 2.40(L) 4.10 - 5.40 x10'6/uL 03/12/2025 4:53 AM CDT [facility] HGB 7.1(L) 12.0 - 16.0 G/DL 03/12/2025 4:53 AM CDT [facility] HCT 21.7(L) 36.0 - 47.0 % 03/12/2025 4:53 AM CDT [facility] MCV 90.4 78.0 - 100.0 FL 03/12/2025 4:53 AM CDT [facility] MCH 29.6 27.0 - 31.0 PG 03/12/2025 4:53 AM CDT [facility] MCHC 32.7(L) 33.0 - 36.0 G/DL 03/12/2025 4:53 AM CDT [facility] RDW 17.0(H) 11.5 - 14.5 % 03/12/2025 4:53 AM CDT [facility] PLT 9(LL) 150 - 350 x10'3/uL 03/12/2025 6:54 AM CDT [facility] Comment: This result has been called to [id number] by [id number] on 03/12/2025 05:55:00, and has been read back. DIFFERENTIAL TYPE MANUAL DIFFERENTIAL 03/12/2025 6:57 AM CDT [facility] NRBC % 2.0 % 03/12/2025 6:57 AM CDT [facility] SEG NEUTROPHILS 29 % 6:57 AM CDT [facility] LYMPHOCYTES 63 % 03/12/2025 6:57 AM CDT [facility] MONOCYTES 2 % 03/12/2025 6:57 AM CDT [facility] EOSINOPHILS 2 % 03/12/2025 6:57 AM CDT [facility] BASOPHILS 0 % 03/12/2025 6:57 AM CDT [facility] BANDS 2 % 03/12/2025 6:57 AM CDT [facility] ABS. NEUTROPHILS 0.17(LL) 1.60 - 8.30 x10'3/uL 03/12/2025 6:57 AM CDT [facility] Comment: This patient has had a critical value result for this test called within the past 3 months. ABS. LYMPHOCYTES 0.35(L) 0.80 - 4.70 x10'3/uL 03/12/2025 6:57 AM CDT [facility] ABS. MONOCYTES 0.01 0.00 - 1.50 x10'3/uL 03/12/2025 6:57 AM CDT [facility] ABS. EOSINOPHILS 0.01 0.00 - 0.40 x10'3/uL 03/12/2025 6:57 AM CDT [facility] ABS. BASOPHILS 0.00 0.00 - 0.20 x10'3/uL 03/12/2025 6:57 AM CDT [facility] ABS. NUCLEATED RBC'S 0.01 0.00 - 0.01 x10'3/uL 03/12/2025 6:57 AM CDT [facility] RBC MORPHOLOGY SLIDE REVIEWED 2024 6:57 AM CDT [facility] ANISO SLIGHT 03/12/2025 6:57 AM CDT [facility] POIKLO SLIGHT 03/12/2025 6:57 AM CDT [facility] OVALOCYTES PRESENT 03/12/2025 6:57 AM CDT [facility] TEAR DROP PRESENT 03/12/2025 6:57 AM CDT [facility] JOVANNA PRESENT 03/12/2025 6:57 AM CDT [facility] PLT EST. DECREASED 03/12/2025 6:57 AM CDT [facility] 03/12/2025 3:50 AM CDT us Marcelle Rich MD LABORATORY Final Result [facility] [address] [place] [address], [id number] * (ABNORMAL) BASIC METABOLIC PANEL (03/11/2025 9:42 AM CDT) Only the most recent of5 resultswithin the time period is included. SODIUM S/P/B 139 136 - 145 MMOL/L 03/11/2025 10:19 AM CDT [facility] POTASSIUM S/P/B 3.4(L) 3.5 - 5.1 MMOL/L 03/11/2025 10:19 AM CDT [facility] CHLORIDE S/P/B 106 97 - 115 MMOL/L 03/11/2025 10:19 AM T [facility] CO2 27.1 21.0 - 32.0 MMOL/L 03/11/2025 10:19 AM T [facility] GLUCOSE 243(H) 74 - 106 MG/DL 03/11/2025 10:19 AM T [facility] BUN 15 7 - 18 MG/DL 03/11/2025 10:19 AM T [facility] CREATININE S/P/B 0.90 0.55 - 1.02 MG/DL 03/11/2025 10:19 AM T [facility] CALCIUM S/P/B 8.6 8.5 - 10.1 MG/DL 03/11/2025 10:19 AM [facility] ANION GAP 5.9 2.0 - 10.0 MMOL/L 03/11/2025 10:19 AM T [facility] OSMOLALITY (CALC) 297 MOSM/KG 025 10:19 AM [facility] Comment:REFERENCE RANGE NOT ESTABLISHED GFR ESTIMATE 74(L) >90 ML/MIN/1. 73 M2 03/11/2025 10:19 AM T [facility] GFR NOTES GFR REFERENCE S: 03/11/2025 10:19 AM T [facility] Comment: THE ESTIMATED GFR IS CALCULATED [...] MD LABORATORY Final Result Performing Organization Address [facility] de Phone Number [facility] [address] [place] [address], [id number] * PHOSPHORUS, INORGANIC PHOSPHATE (03/10/2025 2:41 AM CDT) PHOSPHORUS 3.5 2.5 - 4.9 MG/DL 03/10/2025 3:34 AM CDT [facility] 03/10/2025 2:41 AM CDT us Marcelle Rich MD LABORATORY Final Result Performing Organization Address [facility] de Phone Number [facility] [address] [place] [address], [place] [phone] [id number] * MAGNESIUM (03/10/2025 2:41 AM CDT) MAGNESIUM 1.9 1.6 - 2.6 MG/DL 03/10/2025 3:34 AM CDT [facility] 03/10/2025 2:41 AM CDT us Marcelle Rich MD LABORATORY Final Result Performing Organization Address [facility] de Phone Number [facility] [address] [place] [address], [id number] * (ABNORMAL) Blood gas, venous (03/09/2025 5:27 PM CDT) PH VENOUS 7.39 7.32 - 7.42 03/09/2025 5:37 PM CDT [facility] PCO2 VENOUS 47.7 41.0 - 51.0 MMHG 03/09/2025 5:37 PM CDT [facility] PO2 VENOUS 31.9 25.0 - 40.0 MM HG 03/09/2025 5:37 PM CDT [facility] BICARB VENOUS 28.0 24 - 28 MMOL/L 03/09/2025 5:37 PM CDT [facility] TOTAL CO2 VENOUS 29.5(H) 25.0 - 29.0 MMOL/L 03/09/2025 5:37 PM CDT [facility] BASE EXCESS VENOUS 3.1(H) 0 - 2 MMOL/L 03/09/2025 5:37 PM CDT [facility] O2 SAT VENOUS 56 <75 % 03/09/2025 5:37 PM CDT [facility] 03/09/2025 5:27 PM CDT Marcelle Rich MD LABORATORY Final Result [facility] [address] [place] [address], [id number] * XR CHEST PORTABLE (03/08/2025 11:08 AM CDT) Anatomical Region Laterality Modality Chest Radiographic Aishwarya ging 03/08/2025 12:2 3 PM CDT Impressions 03/08/2025 12:24 PM CDT IMPRESSION: 1. Mild pulmonary vascular congestion. 2. No focal consolidation or pneumothorax. Ordered By: MARCELLE RICH Interpreted By: Bk Perez MD, 03/08/2025 12:23 PM Narrative 03/08/2025 12:24 PM CDT [facility] [address] [place], [place] [address] PROCEDURE: XR CHEST PORTABLE. 03/08/2025 11:06 AM. [...] Procedure Note Bk Perez MD - 03/08/2025 [facility] [address] [place], [place] [address] PROCEDURE: XR CHEST PORTABLE. 03/08/2025 11:06 AM. [...] CDT) TEST NAME: LEUKEMIA LYMPHOMA EVAL TEST [id number] 03/08/2025 1:46 PM CDT [facility] SPECIMEN TYPE PERIPHERAL BLOOD EDTA, ROOM TEMP 03/08/2025 1:46 PM CDT [facility] TEST RESULT: Flexitest 1 03/12/2025 11:42 AM CDT [facility] REGGIE VÁSQUEZ Comment: Flexitest 1 CLINICAL INFORMATION: [...] staining intensity, forward scatter and side scatter. Independence A - Granulocytes Marker Percentage CD2 1 CD3 0 CD4 0 CD5 0 CD7 1 CD8 0 CD10 87 CD11c 96 CD13 91 CD19 0 CD19+CD5+ 0 CD20 0 CD23 1 CD33 3 CD34 0 CD38 2 CD45 100 CD56+CD3- 2 CD64 0 CD117 0 HLA_DR 2 Hilbert CD19+ 0 Lambda CD19+ 0 K/L Ratio NA Independence B - Lymphocytes Marker Percentage CD2 66 CD3 62 CD4 42 CD5 60 CD7 53 CD8 19 CD10 2 CD11c 6 CD13 0 CD19 22 CD19+CD5+ 0 CD20 22 CD23 14 CD33 0 CD34 0 CD38 46 CD45 100 CD56+CD3- 13 CD64 0 CD117 0 HLA_DR 25 Hilbert CD19+ 10 Lambda CD19+ 9 K/L Ratio 1.11 This test was developed and its analytical performance characteristics have been determined by [facility], [place], [place]. It has not been cleared or approved by the U.S. Food and Drug Administration. This assay has been validated pursuant to the CLIA regulations and is used for clinical purposes. NUMBER OF MARKERS: 22 Test Performed by [facility], [employer] [facility], [address] [place], [place] Noe Hernandez M.D., Ph.D., Director of Laboratories , [facility] [id number] 03/08/2025 11:0 7 AM CDT us Almaz Hollins MD LABORATORY Final Result Performing Organization Address City/[facility] Co de Phone Number [facility] [address] , [place] [phone] [facility] [address] [place] [address], [place] [phone] [id number] * FLOW CYTOMETRY, PERIPHERAL BLD (03/08/2025 11:07 AM CDT) FLOW CYTOMETRY TEST SENT TO [facility]. RESULTS WILL DISPLAY REF LAB TEST RESULT UNDER MISC TAB WHEN FINALIZED. 03/08/2025 12:12 PM CDT [facility] 03/08/2025 11:0 7 AM CDT us Almaz Hollins MD LABORATORY Final Result Performing Organization Address [facility] Co de Phone Number [facility] [address] [place] [address], [place] [phone] [id number] * MISCELLANEOUS LAB TEST (03/08/2025 11:07 AM CDT) TEST NAME: HLA TYPING FOR PLATELETS, ALLOIMMUNIZATION 03/08/2025 8:04 AM CDT [facility] TEST RESULT: SEE BLOOD BANK FOR TESTING RESULTS 03/11/2025 7:37 AM CDT [facility] 03/08/2025 11:0 7 AM CDT us Almaz Hollins MD LABORATORY Final Result Performing Organization Address [facility] de Phone Number [facility] [address] [place] [address], [id number] * (ABNORMAL) RETICULOCYTE CT, AUTO (03/07/2025 11:43 PM CDT) Pathologist [facility] % RETICULOCYTE COUNT 0.3(L) 0.6 - 2.3 % 03/08/2025 1:02 AM CDT [facility] ABSOLUTE RETICULOCYTE 0.01(L) 0.02 - 0.10 x10'6/uL 03/08/2025 1:02 AM CDT [facility] IMMATURE RETIC FRACTION 5.1 3.0 - 15.9 % 03/08/2025 1:02 AM CDT [facility] RETIC HGB 37.7(H) 28.0 - 35.0 PG 03/08/2025 1:02 AM CDT [facility] 03/07/2025 11:4 3 PM CDT Wesly Steve MD LABORATORY Final Result Performing Organization Address [facility] de Phone Number [facility] [address] [place] [address], [id number] * (ABNORMAL) EBV (RHONDA CAMP VIRUS) AB PANEL COMPREHENSIVE (INCL. EARLY AG D AB) (03/07/2025 11:41 PM CDT) [facility] EBV EARLY ANTIGEN-D AB IGG 71.00(H) <9.00 U/mL 03/12/2025 7:03 PM CDT [facility] DAIJA COX Comment: The potential exists for cross-reactivity with HIV (Human Immunodeficiency Virus) which could cause a false positive EBV-EA result. U/mL Interpretation <9.00 Negative 9.00 - 10.99 Equivocal >10.99 Positive EBV VCA IGM <36.00 <36.00 U/mL 03/12/2025 7:03 PM CDT [facility] DAIJA COX Comment: U/mL Interpretation <36.00 Negative 36.00 - 43.99 Equivocal >43.99 Positive RHONDA BAR NUCLEAR ANTIGEN IGG 69.90(H) <18.00 U/mL 03/12/2025 7:03 PM CDT [facility] DAIJA COX Comment: U/mL Interpretation <18.00 Negative 18.00 - 21.99 Equivocal >21.99 Positive EBV VCA IGG 262.00(H) <18.00 U/mL 03/12/2025 7:03 PM CDT [facility] DAIJA COX Comment: U/mL Interpretation <18.00 Negative 18.00 - 21.99 Equivocal >21.99 Positive Test Performed by [facility], [facility], [address] [place] [address] Noe Hernandez M.D., Ph.D., Director of Laboratories , [facility] [id number] 03/07/2025 11:4 1 PM CDT Wesly Steve MD LABORATORY Final Result [facility] [address], * [id number] ACT W/RFLX INHIBITOR (03/07/2025 11:41 PM CDT) [id number] ACTIVITY 0.79 0.68 - 1.63 IU/mL 03/10/2025 3:29 PM CDT [facility] DAIJA COX Comment: Activity levels below 0.10 IU/mL are seen in acquired and hereditary thrombotic thrombocytopenic purpura (TTP). Not all patients with TTP will exhibit low levels of [id number] activity with this assay, i.e., post bone marrow transplantation, drug-induced TTP, and mutations of [id number] at the CUB domain. Recent plasma exchange or immunosuppressive therapy may raise the observed activity levels. Mild decreases in [id number] activity are seen in a wide variety of conditions including metastatic cancer, neonates, serious infections and cirrhosis of the liver. For more information on this test, go to http://education.ArmorText/faq/UFK629 Test Performed by [facility], [employer], [address] [place] [address] Noe Hernandez M.D., Ph.D., Director of Laboratories , [facility] [id number] 03/07/2025 11:4 1 PM CDT Wesly Steve MD LABORATORY Final Result Performing Organization Address [facility]/ZIP Co de Phone Number [facility] [place] [address] [place], [place] , [place] [phone] * (ABNORMAL) PROCALCITONIN (PCT) (03/07/2025 11:41 PM CDT) PROCALCITONIN 2.85(H) 0.00 - 0.49 NG/ML 03/08/2025 1:14 PM CDT [facility] Comment: VALUES ABOVE 2.00 NG/ML ARE HIGHLY SUGGESTIVE OF SEPSIS OR OTHER SEVERE BACTERIAL INFECTION. 03/07/2025 11:4 1 PM CDT us Wesly Steve MD LABORATORY Final Result [facility] [address] [place] [address], [place] [phone] * (ABNORMAL) TSH W/REFLEX (03/07/2025 11:41 PM CDT) TSH 0.250(L) 0.358 - 3.740 uIU/ML 03/08/2025 12:47 AM CDT [facility] Comment: ASSAY PERFORMED BY CHEMILUMINESCENCE METHODOLOGY USING [employer]EM[employer] D[employer]IST[employer] REAGENT. PATIENT RESULTS DETERMINED BY ASSAYS USING DIFFERENT MANUFACTURERS FOR METHODS MAY NOT BE COMPARABLE. 03/07/2025 11:4 1 PM CDT us Wesly Steve MD LABORATORY Final Result Performing Organization Address City/[facility]/ZIP Co de Phone Number [facility] [address] [place] [address], [id number] * CMV DNA QUANT REAL TIME PCR (03/07/2025 11:41 PM CDT) Pathologist [facility] SPECIMEN SOURCE EDTA PLASMA 03/08/20 8:43 AM CDT [facility] CMV DNA QN PCR (BLD) Not Detected IU/mL 03/10/2025 6:53 PM CDT [facility] CapitalADRIAN LLY CMV DNA QUANT PCR (BLD) Not Detected log IU/mL 03/10/2025 6:53 PM CDT [facility] LINTONAstro GamingADRIAN LLY Comment: REFERENCE RANGE: NOT DETECTED For additional information, please refer to http://education.Teach The People.[employer]/faq/CMVandEBVPCR (This link is being provided for informational/ educational purposes only.) Test Performed by [facility], [employer] [facility], [address] [place] [address] Noe Hernandez M.D., Ph.D., Director of Laboratories , [facility] [id number] 03/07/2025 11:4 1 PM CDT us Wesly Steve MD LABORATORY Final Result Performing Organization Address City/[facility]/ZIP Co de Phone Number [facility] [address], [place] [phone] [facility] [address] [place] [address], [place] [phone] * (ABNORMAL) IRON SATURATION PANEL (FE,IBC,%SAT) (03/07/2025 11:41 PM CDT) Pathologist [facility] IRON 53 50 - 170 MCG/DL 03/08/2025 12:47 AM CDT [facility] IRON BINDING CAPACITY 202(L) 250 - 450 MCG/DL 03/08/2025 12:47 AM CDT [facility] IRON SATURATION 26 % 12:47 AM CDT [facility] Comment:REFERENCE RANGE NOT ESTABLISHED 03/07/2025 11:4 1 PM CDT us Wesly Steve MD LABORATORY Final Result [facility] [address] [place] [address], [id number] * VITAMIN B-12 (03/07/2025 11:41 PM CDT) Pathologist [facility] VITAMIN B12 S/P/B 511 193 - 986 PG/ML 03/08/2025 12:35 AM CDT [facility] 03/07/2025 11:4 1 PM CDT us Wesly Steve MD LABORATORY Final Result [facility] [address] [place] [address], [id number] * SED RATE, ERYTHROCYTE (ESR,WSR) (03/07/2025 11:41 PM CDT) Pathologist [facility] ESR 15 0 - 20 MM/HR 03/08/2025 12:03 AM CDT [facility] 03/07/2025 11:4 1 PM CDT Wesly Steve MD LABORATORY Final Result [facility] [address] [place] [address], [id number] * (ABNORMAL) COMPREHENSIVE METABOLIC PANEL (03/07/2025 11:41 PM CDT) SODIUM S/P/B 137 136 - 145 MMOL/L 03/08/2025 12:47 AM CDT [facility] POTASSIUM S/P/B 3.4(L) 3.5 - 5.1 MMOL/L 03/08/2025 12:47 AM CDT [facility] CHLORIDE S/P/B 107 97 - 115 MMOL/L 03/08/2025 12:47 AM CDT [facility] CO2 24.5 21.0 - 32.0 MMOL/L 03/08/2025 12:47 AM CDT [facility] GLUCOSE 261(H) 74 - 106 MG/DL 03/08/2025 12:47 AM CDT [facility] BUN 8 7 - 18 MG/DL 03/08/2025 12:47 AM CDT [facility] CREATININE S/P/B 0.80 0.55 - 1.02 MG/DL 03/08/2025 12:47 AM CDT [facility] CALCIUM S/P/B 8.0(L) 8.5 - 10.1 MG/DL 03/08/2025 12:47 AM CDT [facility] BILIRUBIN TOTAL S/P/B 0.4 0.2 - 1.0 MG/DL 03/08/2025 12:47 AM CDT [facility] ALKALINE PHOSPHATASE S/P/B 71 46 - 118 U/L 03/08/2025 12:47 AM CDT [facility] AST 43(H) 15 - 37 U/L 03/08/2025 12:47 AM CDT [facility] ALT 46 13 - 56 U/L 03/08/2025 12:47 AM T [facility] TOTAL PROTEIN S/P/B 6.5 6.4 - 8.2 G/DL 03/08/2025 12:47 AM CDT [facility] ALBUMIN S/P/B 2.9(L) 3.4 - 5.0 G/DL 03/08/2025 12:47 AM CDT [facility] ANION GAP 5.5 2.0 - 10.0 MMOL/L 03/08/2025 12:47 AM T [facility] OSMOLALITY (CALC) 291 MOSM/KG 025 12:47 AM T [facility] Comment:REFERENCE RANGE NOT ESTABLISHED GFR ESTIMATE 85(L) >90 ML/MIN/1. 73 M2 03/08/2025 12:47 AM T [facility] GFR NOTES GFR REFERENCE S: 03/08/2025 12:47 AM [facility] Comment: THE ESTIMATED [...] us Wesly Steve MD LABORATORY Final Result [facility] [address] [place] [address], [place] [phone] [id number] * (ABNORMAL) LDH, LACTATE DEHYDROGENASE (03/07/2025 11:41 PM CDT) Pathologist [facility] LDH 249(H) 84 - 246 UNITS/L 03/08/2025 12:47 AM CDT [facility] 03/07/2025 11:4 1 PM CDT Wesly Steve MD LABORATORY Final Result [facility] [address] [place] [address], [id number] * (ABNORMAL) DIC PANEL (03/07/2025 11:41 PM CDT) Pathologist [facility] PROTIME 12.1 9.4 - 12.5 SEC 03/08/2025 12:11 AM CDT [facility] INR 1.1 0.8 - 1.1 03/08/2025 12:11 AM CDT [facility] PTT 27.3 25.1 - 36.5 SEC 03/08/2025 12:12 AM CDT [facility] FIBRINOGEN 330 200 - 393 MG/DL 03/08/2025 12:10 AM CDT [facility] D-DIMER 932(H) 0 - 500 ng{FEU}/m L 03/08/2025 12:11 AM CDT [facility] EXCLUSION STATEMENT 03/08/2025 12:11 AM CDT [facility] Comment: D-Dimer values less than or [...] - 350 x10'3/uL 03/07/2025 11:58 PM CDT [facility] 03/07/2025 11:4 1 PM CDT us Wesly Steve MD LABORATORY Final Result Performing Organization Address City/[facility]/ZIP Co de Phone Number [facility] [address] [place] [address], [place] [phone] [id number] * (ABNORMAL) C-REACTIVE PROTEIN (03/07/2025 11:41 PM CDT) C-REACTIVE PROTEIN 2.96(H) <0.80 mg/dL 03/08/2025 12:47 AM CDT [facility] 03/07/2025 11:4 1 PM CDT us Wesly Steve MD LABORATORY Final Result Performing Organization Address [facility] Co de Phone Number [facility] [address] [place] [address], [place] [phone] * BLOOD SMEAR PERIPHERAL INTERP PHYS W/WRIT REPORT (03/07/2025 11:41 PM CDT) CBC PATHOLOGIST COMMENT SENT TO PATHOLOGIST FOR REVIEW 03/08/2025 3:04 PM CDT [facility] 03/07/2025 11:4 1 PM CDT us Wesly Steve MD LABORATORY Final Result Performing Organization Address [facility]/ZIP Co de Phone Number [facility] [address] [place] [address], [place] [phone] * FOLIC ACID SERUM (03/07/2025 11:41 PM CDT) FOLATE 5.2 3.1 - 17.5 NG/ML 03/08/2025 12:35 AM CDT [facility] 03/07/2025 11:4 1 PM CDT Wesly Steve MD LABORATORY Final Result Performing Organization Address [facility] Co de Phone Number [facility] [address] [place] [address], [phone] * (ABNORMAL) THYROXINE, FREE (FT4) (03/07/2025 11:41 PM CDT) FREE T4 1.55(H) 0.76 - 1.46 NG/DL 03/08/2025 1:05 AM CDT [facility] 03/07/2025 11:4 1 PM CDT Wesly Steve MD LABORATORY Final Result Performing Organization Address [facility] de Phone Number [facility] [address] [place] [address], [place] [phone] * Pathology (03/07/2025 12:00 AM CDT) PATHOLOGY [facility] Department of Laboratory Medicine [address] [place] [address] , extension [phone] Pathology Report Peripheral Smear Report Name: IVETH BOOGIE Specimen #: [id number] Age: 6 1965 (Age: 60) Location: [facility] Sex: F Procedure Date: 03/07/2025 Hospital #: [id number] Date Received: 03/08/2025 Date Reported: 03/08/2025 Provider: [...] 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 [id number] testing is pending at the time of [...] Interpretation and sign out were performed at [address], [address] [place] [address]. [facility] 03/07/2025 03/08/2025 7:5 2 AM CDT Comment:Peripheral blood us Wesly Steve MD PATHOLOGY/CYTOLOGY ORDERABLES F inal Result [facility] [address] [place] [address], [phone] * PROTIME/INR, VENOUS (01/26/2025 3:25 PM CDT) PROTIME 11.9 9.4 - 12.5 SEC 01/26/2025 3:40 PM CDT [facility] INR 1.0 0.8 - 1.0 01/26/2025 3:40 PM CDT [facility] 01/26/2025 3:25 PM CDT Bharat Young DO LABORATORY Final Result [facility] [address] [place] [address], [place] [phone] from Last 3 Months Insurance MEDICAID MEDICARE Advance Directives * Full Code (Latest Code Status on File) Date Activated Date Inactivated Comments 03/07/2025 10:49 PM 03/12/2025 8:04 PM Care Teams Flat Ironer Relationship Specialty Start Date End Date Reagan Fonseca MD [address] [place] [address] PCP - General FAMILY PRACTICE 01/26/25
--- OUTSIDE RECORDS SUMMARY | 2025-03-29 10:41 | XMS_ITS ---
Author Organization Unknown Address [address] [place] [phone] Phone Care Team Providers Care Filler Operator Name Role Phone JOHAN SULLIVAN Attending Unavailable Immunization Immunization Date Status Additional Notes Code Code System Tdap 03/26/2021 Completed 115 CVX Results CBC W/ DIFF - Collect Date/T sarah: 01/08/2025 13:23 [facility] ID: [id number] [id number] [place] [address], [phone] LOINC: 23737-9 Test Value Unit Reference Range Code Code [...] H=36.0 L PLATELETS 43 10^3uL L=100 H=400 97207-0 LOINC L RDW 16.1 % L=11.7 H=15.5 H %GRAN L=40.0 H=70.0 67754-6 LOINC %LYMPH L=20.0 H=45.0 736-9 LOINC %MONO L=2.0 H=10.0 53648-6 LOINC %EOS L=0.0 H=6.0 713-8 LOINC %BASO L=0.0 H=3.0 706-2 LOINC #NEUT L=1.9 H=7.6 54420-5 LOINC #LYMPH L=0.9 H=4.9 46893-6 LOINC #MONO L=0.1 H=0.9 20742-0 LOINC #EOS L=0.0 H=0.6 712-0 LOINC #BASO L=0.00 H=0.10 39520-8 LOINC #IM GRANS L=0.0 H=7.0 55779-0 LOINC %IM GRANS L=0.0 H=5.0 02235-9 LOINC %NRB L=0.0 H=0.2 80874-5 LOINC #NRB L=0.000 H=0.012 10653-0 LOINC MANUAL DIFF SEE BELOW A SEG [...] L=0 H=0 BLASTS 0 % L=0 H=0 61684-1 LOINC PANDA LYMPHS 0.00 % L=0.00 H=5.00 SMUDGE CELLS 0 % L=0 H=0 NRBC 0.0 % L=0.0 H=0.0 PLTS DECREASED NEUT # 0.7 10^3uL L=1.9 H=7.6 LL LYMPH # 1.2 10^3uL L=0.9 H=4.9 MONO # 0.0 10^3uL L=0.1 H=0.9 L EOS # 0.1 10^3uL L=0.0 H=0.6 712-0 LOINC BASO # 0.0 10^3uL L=0.0 H=0.1 90146-1 LOINC RBC MORPH NOT INDICATED COMPREHENSIVE METABOLIC PANE L - Collect Date/Time: 01/08/2025 13:23 [facility] ID: [id number] [address] [place], [place], [phone] LOINC: 37333-4 Test Value Unit Reference Range Code Code [...] 2028-9 LOINC ANION GAP 10 L=10 H=20 77491-2 LOINC OSMOLALITY 288 mOs/kG L=280 H=296 59598-3 LOINC BUN/CREAT 13.3 3097-3 LOINC CALCIUM 8.9 mg/dL L=8.3 H=10.5 88234-0 LOINC AST 23 U/L L=15 H=46 1920-8 LOINC ALT 15 U/L L=9 H=72 1742-6 LOINC ALKALINE PHOS 61 U/L L=38 H=126 6768-6 LOINC TOTAL BILI 0.3 mg/dL L=0.2 H=1.3 1975-2 LOINC ALBUMIN 3.9 G/dL L=3.5 H=5.0 1751-7 LOINC TOTAL PROTEIN 7.6 g/L L=6.3 H=8.2 2885-2 LOINC A/G RATIO 1.1 14661-5 LOINC AGE 59 81424-1 LOINC eGFR NON-AFR 69 ml/min eGFR AFR AMER 83 ml/min Social History Type Status Start Date End Date Code Code Syst em Smoking History Unknown if ever smoked [address] Sex Female Hospital Discharge Instructions Should you have any questions prior to discharge, please contact a member of your healthcare team. If you have left the hospital and have any questions, please contact your primary care physician. Reason For Referral No Data Found Plan of Treatment Picc Line Removal 03/27/2025 PICC Line Placement 03/27/2025 US Venous Right UE ([id number]) 03/27/2025 Encounters Encounter Diagnosis Start Date Code Code Sys tem Myelodysplastic syndrome, unspecified 01/08/2025 SNOMED-CT Personal Care Team Section Performer Name Performer Role Active Date Inactive LAURIE Hidalgo PCP - Primary care physician
--- OUTSIDE RECORDS SUMMARY | 2025-03-29 10:41 | XMS_ITS ---
Author Organization Unknown Address [address] [place] [phone] Phone Care Team Providers Care Procedures Tech Name Role Phone PIPPA GREGORIONISHA Attending Unavailable JOHAN SULLIVAN Primary Unavailable Immunization Immunization Date Status Additional Notes Code Code System Tdap 03/26/2021 Completed 115 CVX Social History Type Status Start Date End Date Code Code Syst em Smoking History Unknown if ever smoked [address] Sex Female Vital Signs Vital Sign Value Unit Dane Value Dane Unit Date/Time Recent/Initial? Code Code System Body Mass Index 34.97 kg/m2 02/04/2025 09:56 Initial 63743 -5 [facility] Systolic Blood Pressure 168 mm[Hg] 02/04/2025 09:53 Initial 8480- 6 LOINC Diastolic Blood Pressure 73 mm[Hg] 02/04/2025 09:53 Initial 8462- 4 INC Body Surface Area 2.24 m2 02/04/2025 09:56 Initial 3140- 1 LOINC Height 172.720 0 cm 68.00 in 02/04/2025 09:56 Initial 8302- 2 LOINC O2 Saturation 100 % 2024 09:53 Initial 00308 -5 LOINC Pulse 99.0 /min 02/04/2025 09:53 Initial 8867- 4 LOINC Respiration 22 /min 02/05/20 09:53 Initial 9279- 1 LOINC Temperature 36.3 Freda 97.3 F 02/05/20 09:53 Initial 8310- 5 LOINC Weight 104.33 kg 230.00 lbs 02/04/2025 09:56 Initial 35114 -7 INC Hospital Discharge Instructions Should you have any questions prior to discharge, please contact a member of your healthcare team. If you have left the hospital and have any questions, please contact your primary care physician. Reason For Referral No Data Found Plan of Treatment Picc Line Removal 03/27/2025 PICC Line Placement 03/27/2025 US Venous Right UE ([id number]) 03/27/2025 Encounters Encounter Diagnosis Start Date Code Code Sys tem Myelodysplastic syndrome, unspecified 02/04/2025 SNOMED-CT Personal Care Team Section Performer Name Performer Role Active Date Inactive LAURIE Hidalgo PCP - Primary care physician
--- OUTSIDE RECORDS SUMMARY | 2025-03-29 10:41 | XMS_ITS ---
Author Organization Unknown Address [address] [place] [phone] Phone Care Team Providers Care Semiconductor Processing Technician Name Role Phone PIPPA KNOX Attending Unavailable JOHAN SULLIVAN Primary Unavailable Immunization Immunization Date Status Additional Notes Code Code System Tdap 03/26/2021 Completed 115 CVX Results US VENOUS RIGHT UE - Complet ed: 03/27/2025 09:54 LOINC: 90626-7 \TM00\\12PI\\DRAo\\BM09\ \MRHo\ [address] [address] ---------NAME--------- NUMBER SEX AGE ADMIT DISC. XRAY# F/C TYPE CHUYITA TONY [id number] F 60 03/27/25 66858 MB O/P DATE OF : 1965 M/R# [id number] PH#: [phone] RM 26-IF \MRHx\ LOCATION: TRANSCRIBED: 03/27/25 10:[place] [address] COMPLETED:03/27/25 9:54 [facility] [address] {REASON-US VENOUS RIGHT UE: MTELODYSPIASTIC SYNDROME PHYSICIAN: [...] or worsen, short-interval follow-up study is suggested. ED FRAMES ASSEMBLER \ITLo\ \UNDo\ \UNDx\ \ITLx\ Reviewed and Electronically Signed by: Ivan Acosta MD Signed Date: 03/27/25 10:23 03/27/25.1026.AJH.to JOHAN via fax Social History Type Status Start Date End Date Code Code Syst em Smoking History Unknown if ever smoked [address] Sex Female Vital Signs Vital Sign Value Unit Morrow Value Morrow Unit Date/Time Recent/Initial? Code Code System Body Mass Index 32.26 kg/m2 03/27/2025 08:53 Initial 46694 -5 LOINC Systolic Blood Pressure 131 mm[Hg] 03/27/2025 08:52 Initial 8480- 6 LOINC Diastolic Blood Pressure 67 mm[Hg] 03/27/2025 08:52 Initial 8462- 4 LOINC Body Surface Area 2.10 m2 03/27/2025 08:53 Initial 3140- 1 LOINC Height 170.180 0 cm 67.00 in 03/27/2025 08:53 Initial 8302- 2 LOINC O2 Saturation 95 % 2024 08:52 Initial 71275 -5 LOINC Pulse 77.0 /min 03/27/2025 08:52 Initial 8867- 4 LOINC Respiration 22 /min 03/27/20 08:52 Initial 9279- 1 LOINC Temperature 36.7 Freda 98.1 F 03/27/20 08:52 Initial 8310- 5 LOINC Weight 93.44 kg 206.00 lbs 03/27/2025 08:53 Initial 14359 -7 LOINC Hospital Discharge Instructions Should you have any questions prior to discharge, please contact a member of your healthcare team. If you have left the hospital and have any questions, please contact your primary care physician. Reason For Referral No Data Found Procedures Procedure Name Date Status Code Code Syste m INSERTION PICC W/RS&I 5 YR/> completed 99111 CPT Plan of Treatment Picc Line Removal 03/27/2025 PICC Line Placement 03/27/2025 US Venous Right UE ([id number]) 03/27/2025 Encounters Encounter Diagnosis Start Date Code Code Sys tem Myelodysplastic syndrome, unspecified 03/27/2025 SNOMED-CT Personal Care Team Section Performer Name Performer Role Active Date Inactive LAURIE Hidalgo PCP - Primary care physician Imaging Narrative Notes [facility] 03/27/2025 10:26 [facility] [address] [place] [address] ---------NAME--------- NUMBER SEX AGE ADMIT DISC. XRAY# F/C TYPE CHUYITA TONY [id number] F 60 03/27/25 61041 MB O/P DATE OF : 1965 M/R# [id number] #: [id number] 26-IF LOCATION: TRANSCRIBED: 03/27/25 10:[place] [address] COMPLETED:03/27/25 9:54 [facility] [address] {REASON-US VENOUS RIGHT UE: MTELODYSPIASTIC SYNDROME PHYSICIAN: [...] or worsen, short-interval follow-up study is suggested. ED FRAMES ASSEMBLER Reviewed and Electronically Signed by: Ivan Acosta MD Signed Date: 03/27/25 10:23 03/27/25.1026.AJH.david PRADO via fax
--- OUTSIDE RECORDS SUMMARY | 2025-03-29 10:41 | XMS_ITS ---
Author Organization Unknown Address [address] [place] [address] [phone] Phone Care Team Providers Care Log Haul Operator Name Role Phone PIPPA BURCIAGAWade Attending Unavailable JOHAN SULLIVAN Primary Unavailable Immunization Immunization Date Status Additional Notes Code Code System Tdap 03/26/2021 Completed 115 CVX Results CBC W/ DIFF - Collect Date/T sarah: 01/23/2025 14:13 [facility] ID: [id number] [address] [place] [address], [phone] LOINC: 95255-3 Test Value Unit Reference Range Code Code [...] H=36.0 L PLATELETS 32 10^3uL L=100 H=400 98177-0 LOINC L RDW 17.1 % L=11.7 H=15.5 H %GRAN L=40.0 H=70.0 33221-8 LOINC %LYMPH L=20.0 H=45.0 736-9 LOINC %MONO L=2.0 H=10.0 64463-8 LOINC %EOS L=0.0 H=6.0 713-8 LOINC %BASO L=0.0 H=3.0 706-2 LOINC #NEUT L=1.9 H=7.6 86330-2 LOINC CALLED TO: CHRISTOPH MÁRQUEZ AT: 1448 01/23/25 BY: SDK #LYMPH L=0.9 H=4.9 23255-0 LOINC #MONO L=0.1 H=0.9 79029-3 LOINC #EOS L=0.0 H=0.6 712-0 LOINC #BASO L=0.00 H=0.10 55697-4 LOINC #IM GRANS L=0.0 H=7.0 95438-0 LOINC %IM GRANS L=0.0 H=5.0 56124-9 LOINC %NRB L=0.0 H=0.2 10305-6 LOINC #NRB L=0.000 H=0.012 62122-4 LOINC MANUAL DIFF SEE BELOW A SEG [...] L=0 H=0 BLASTS 0 % L=0 H=0 67269-9 LOINC PANDA LYMPHS 10.00 % L=0.00 H=5.00 H SMUDGE CELLS 0 % L=0 H=0 NRBC 0.0 % L=0.0 H=0.0 PLTS DECREASED NEUT # 0.6 10^3uL L=1.9 H=7.6 LL LYMPH # 1.0 10^3uL L=0.9 H=4.9 MONO # 0.1 10^3uL L=0.1 H=0.9 EOS # 0.1 10^3uL L=0.0 H=0.6 712-0 LOINC BASO # 0.0 10^3uL L=0.0 H=0.1 61249-1 LOINC RBC MORPH NOT INDICATED COMPREHENSIVE METABOLIC PANE L - Collect Date/Time: 01/23/2025 14:13 [facility] ID: [id number] [address] [place], [place], [phone] LOINC: 38861-9 Test Value Unit Reference Range Code Code [...] 2028-9 LOINC ANION GAP 9 L=10 H=20 56987-8 LOINC L OSMOLALITY 291 mOs/kG L=280 H=296 11824-5 LOINC BUN/CREAT 13.8 3097-3 LOINC CALCIUM 8.7 mg/dL L=8.3 H=10.5 34841-3 LOINC AST 20 U/L L=15 H=46 1920-8 LOINC ALT 12 U/L L=9 H=72 1742-6 LOINC ALKALINE PHOS 71 U/L L=38 H=126 6768-6 LOINC TOTAL BILI 0.2 mg/dL L=0.2 H=1.3 1975-2 LOINC ALBUMIN 3.7 G/dL L=3.5 H=5.0 1751-7 LOINC TOTAL PROTEIN 6.8 g/L L=6.3 H=8.2 2885-2 LOINC A/G RATIO 1.2 79699-4 LOINC AGE 59 29682-6 LOINC eGFR NON-AFR 79 ml/min eGFR AFR AMER 96 ml/min BB ABO AND RH TYPE - Collect Date/Time: 01/23/2025 14:13 [facility] ID: [id number] [address] [place], [place], [phone] LOINC: 88082-1 Test Value Unit Reference Range Code Code System Flag ABO TYPE A 883-9 LOINC RH TYPE POSITIVE BB RETYPE ABO AND RH TYPE - Collect Date/Time: 01/23/2025 14:13 [facility] ID: [id number] [address] [place], [place], [phone] LOINC: 79654-9 Test Value Unit Reference Range Code Code System Flag ABO TYPE A 883-9 LOINC RH TYPE POSITIVE Social History Type Status Start Date End Date Code Code Syst em Smoking History Unknown if ever smoked [address] Sex Female Hospital Discharge Instructions Should you have any questions prior to discharge, please contact a member of your healthcare team. If you have left the hospital and have any questions, please contact your primary care physician. Reason For Referral No Data Found Plan of Treatment Picc Line Removal 03/27/2025 PICC Line Placement 03/27/2025 US Venous Right UE ([id number]) 03/27/2025 Encounters Encounter Diagnosis Start Date Code Code Sys tem Myelodysplastic syndrome, unspecified 01/23/2025 SNOMED-CT Personal Care Team Section Performer Name Performer Role Active Date Inactive LAURIE Hidalgo PCP - Primary care physician
--- OUTSIDE RECORDS SUMMARY | 2025-03-29 10:41 | XMS_ITS | Encounter Summary ---
Author Organization [facility] Address [address] [place] [phone] Care Team Providers Care Assistant Professor Of Marine Biology Name Role Phone Reagan Fonseca MD Primary Care Provider [phone] Encounter Details Date Type Department Care Team (Late st Contact Info) Description 02/24/2019 Abstract SFL CONVERSION [address] [place] [address] , Generic Conversion, Social History Tobacco Use [...] on filedocumented in this encounter Care Teams Assistant Professor Of Marine Biology Relationship Specialty Start Date End Date Reagan Fonseca MD [address] [place] [address] PCP - General FAMILY PRACTICE 01/26/25 documented as of this encounter
--- OUTSIDE RECORDS SUMMARY | 2025-03-29 10:41 | XMS_ITS | Encounter Summary ---
Author Organization [facility] Address [address] [place] [address] Care Team Providers Care Head Of Merchandise Buying Name Role Phone Reagan Fonseca MD Primary Care Provider [phone] Encounter Details Date Type Department Care Team (Late st Contact Info) Description 12/03/2017 Abstract SJS CONVERSION [address] [place] [address] , Generic Conversion, Social History Tobacco Use [...] on filedocumented in this encounter Care Teams Head Of Merchandise Buying Relationship Specialty Start Date End Date Reagan Fonseca MD [address] [place] [address] PCP - General FAMILY PRACTICE 01/26/25 documented as of this encounter
--- OUTSIDE RECORDS SUMMARY | 2025-03-29 10:42 | XMS_ITS ---
Author Organization Unknown Address [address] [place] [phone] Phone Care Team Providers Care Service Loss Control Consultant Name Role Phone JOHAN SULLIVAN Attending Unavailable Immunization Immunization Date Status Additional Notes Code Code System Tdap 03/26/2021 Completed 115 CVX Results US GALLBLADDER - Completed: 12/25/2024 12:00 LOINC: \TM00\\12PI\\DRAo\\BM09\ \MRHo\ [address] [address] ---------NAME--------- NUMBER SEX AGE ADMIT DISC. XRAY# F/C TYPE CHUYITA TONY [id number] F 59 12/25/24 12/25/24 83079 MBJ O/P DATE OF : 1965 M/R# [id number] PH#: [phone] RM \MRHx\ LOCATION: TRANSCRIBED: 12/25/24 13:39 US GALLBLADDER 96718 COMPLETED:12/25/24 12:00 APC 37597 {REASON-US ABD: ABDOMINAL PAIN PHYSICIAN: JOHAN R [...] of gallstones or acute cholecystitis. Hepatic steatosis. AINABILITY SPECIALIST \ITLo\ \UNDo\ \UNDx\ \ITLx\ Reviewed and Electronically Signed by: Ivan Acosta MD Signed Date: 12/25/24 13:39 Social History Type Status Start Date End Date Code Code Syst em Smoking History Unknown if ever smoked [address] Sex Female Hospital Discharge Instructions Should you have any questions prior to discharge, please contact a member of your healthcare team. If you have left the hospital and have any questions, please contact your primary care physician. Reason For Referral No Data Found Plan of Treatment Picc Line Removal 03/27/2025 PICC Line Placement 03/27/2025 US Venous Right UE (27829) 03/27/2025 Encounters Encounter Diagnosis Start Date Code Code Sys tem Fatty (change of) liver, not elsewhere classified 04/2025 SNOMED-CT Personal Care Team Section Performer Name Performer Role Active Date Inactive LAURIE Hidalgo PCP - Primary care physician Imaging Narrative Notes [facility] 12/25/2024 13:42 [facility] [address] [place] [address] ---------NAME--------- NUMBER SEX AGE ADMIT DISC. XRAY# F/C TYPE CHUYITA TONY [id number] F 59 12/25/24 12/25/24 [address] [facility] O/P DATE OF : 1965 M/R# [id number] #: [id number] LOCATION: TRANSCRIBED: 12/25/24 13:39 [facility] GALLBLADDER [address] COMPLETED:12/25/24 12:00 APC 99046 {REASON-US ABD: ABDOMINAL PAIN PHYSICIAN: JOHAN RADIOLOGY [...] of gallstones or acute cholecystitis. Hepatic steatosis. AINABILITY SPECIALIST Reviewed and Electronically Signed by: Ivan Acosta MD Signed Date: 12/25/24 13:39
[2025-03-29] MEDS: SODIUM CHLORIDE 0.9% IVPB ×2 (10:45→11:14)
[2025-03-29] MEDS: ONDANSETRON IVPB (10:45)
[2025-03-29 11:08] VITALS: BP 141/76; PULSE 80; RESP 16; TEMP 36.6; O2SAT 95; BMI 31.4
[2025-03-29] MEDS: DECITABINE IVPB (11:14)
[2025-03-29] MEDS: HEPARIN SODIUM LOCK FLUSH 500 UNITS/5 ML SYRINGE IV PUSH (12:17)
--- NOTE | 2025-03-29 12:54 | PC.NURSE ---
Patient tolerated decitabine infusion well. SEE MAR/patient care notes.
[2025-03-29 12:55] VITALS: BP 137/79; PULSE 78; RESP 14; O2SAT 96
== END 2025-03-29 10:37 | disposition home or self-care (01) ==
PROVIDERS: PCP Family Medicine; Visit Provider Internal Medicine Hematology
DX: D46.21 Refractory anemia with excess of blasts 1 (principal)
CPT/HCPCS: 96367; 96413; J0894; J2405; J7050

== ENCOUNTER 2025-04-01 09:28 | Outpatient (CLI) | payer MEDICARE, SELFPAY ==
--- OUTSIDE RECORDS SUMMARY | 2025-04-01 09:33 | XMS_ITS ---
Author Organization Unknown Address [address] [place] [phone] Phone Care Team Providers Care Portfolio Consultant Name Role Phone PIPPA KNOX Attending Unavailable JOHAN SULLIVAN Primary Unavailable Immunization Immunization Date Status Additional Notes Code Code System Tdap 03/26/2021 Completed 115 CVX Results US VENOUS RIGHT UE - Complet ed: 03/27/2025 09:54 LOINC: 59326-8 \TM00\\12PI\\DRAo\\BM09\ \MRHo\ [address] [address] ---------NAME--------- NUMBER SEX AGE ADMIT DISC. XRAY# F/C TYPE CHUYITA TONY [id number] F 60 03/27/25 71364 MB O/P DATE OF : 1965 M/R# [id number] PH#: [phone] RM 26-IF \MRHx\ LOCATION: TRANSCRIBED: 03/27/25 10:[place] [address] COMPLETED:03/27/25 9:54 [facility] [address] {REASON-US VENOUS RIGHT UE: MTELODYSPIASTIC SYNDROME PHYSICIAN: [...] or worsen, short-interval follow-up study is suggested. IST SUPPLIES SALESPERSON \ITLo\ \UNDo\ \UNDx\ \ITLx\ Reviewed and Electronically Signed by: Ivan Acosta MD Signed Date: 03/27/25 10:23 03/27/25.1026.AJH.to JOHAN via fax Social History Type Status Start Date End Date Code Code Syst em Smoking History Unknown if ever smoked [address] Sex Female Vital Signs Vital Sign Value Unit [place] Value [place] Unit Date/Time Recent/Initial? Code Code System Body Mass Index 32.26 kg/m2 03/27/2025 08:53 Initial 67536 -5 LOINC Systolic Blood Pressure 131 mm[Hg] 03/27/2025 08:52 Initial 8480- 6 LOINC Diastolic Blood Pressure 67 mm[Hg] 03/27/2025 08:52 Initial 8462- 4 LOINC Body Surface Area 2.10 m2 03/27/2025 08:53 Initial 3140- 1 LOINC Height 170.180 0 cm 67.00 in 03/27/2025 08:53 Initial 8302- 2 LOINC O2 Saturation 95 % 2024 08:52 Initial 23890 -5 LOINC Pulse 77.0 /min 03/27/2025 08:52 Initial 8867- 4 LOINC Respiration 22 /min 03/27/20 08:52 Initial 9279- 1 LOINC Temperature 36.7 Freda 98.1 F 03/27/20 08:52 Initial 8310- 5 LOINC Weight 93.44 kg 206.00 lbs 03/27/2025 08:53 Initial 91781 -7 LOINC Hospital Discharge Instructions Should you have any questions prior to discharge, please contact a member of your healthcare team. If you have left the hospital and have any questions, please contact your primary care physician. Reason For Referral No Data Found Procedures Procedure Name Date Status Code Code Syste m INSERTION PICC W/RS&I 5 YR/> completed 19564 CPT Plan of Treatment Picc Line Removal 03/27/2025 PICC Line Placement 03/27/2025 US Venous Right UE (58061) 03/27/2025 Encounters Encounter Diagnosis Start Date Code Code Sys tem Myelodysplastic syndrome, unspecified 03/27/2025 SNOMED-CT Personal Care Team Section Performer Name Performer Role Active Date Inactive LAURIE Hidalgo PCP - Primary care physician Imaging Narrative Notes [facility] 03/27/2025 10:26 [facility] [address] [place] [address] ---------NAME--------- NUMBER SEX AGE ADMIT DISC. XRAY# F/C TYPE CHUYITA TONY [id number] F 60 03/27/25 04037 MB O/P DATE OF : 1965 M/R# [id number] #: [id number] 26-IF LOCATION: TRANSCRIBED: 03/27/25 10:[place] [address] COMPLETED:03/27/25 9:54 [facility] [address] {REASON-US VENOUS RIGHT UE: MTELODYSPIASTIC SYNDROME PHYSICIAN: [...] or worsen, short-interval follow-up study is suggested. IST SUPPLIES SALESPERSON Reviewed and Electronically Signed by: Ivan Acosta MD Signed Date: 03/27/25 10:23 03/27/25.1026.AJH.david PRADO via fax
--- OUTSIDE RECORDS SUMMARY | 2025-04-01 09:33 | XMS_ITS ---
Author Organization Unknown Address [address] [place] [phone] Phone Care Team Providers Care Mortgage Processor Name Role Phone JOHAN SULLIVAN Attending Unavailable Immunization Immunization Date Status Additional Notes Code Code System Tdap 03/26/2021 Completed 115 CVX Results CBC W/ DIFF - Collect Date/T sarah: 01/08/2025 13:23 [facility] ID: [id number] [address] [place] [address], [id number] LOINC: 26270-1 Test Value Unit Reference Range Code Code [...] H=36.0 L PLATELETS 43 10^3uL L=100 H=400 70521-4 LOINC L RDW 16.1 % L=11.7 H=15.5 H %GRAN L=40.0 H=70.0 23402-1 LOINC %LYMPH L=20.0 H=45.0 736-9 LOINC %MONO L=2.0 H=10.0 53730-0 LOINC %EOS L=0.0 H=6.0 713-8 LOINC %BASO L=0.0 H=3.0 706-2 LOINC #NEUT L=1.9 H=7.6 04168-8 LOINC #LYMPH L=0.9 H=4.9 32641-9 LOINC #MONO L=0.1 H=0.9 44178-9 LOINC #EOS L=0.0 H=0.6 712-0 LOINC #BASO L=0.00 H=0.10 62988-4 LOINC #IM GRANS L=0.0 H=7.0 06139-2 LOINC %IM GRANS L=0.0 H=5.0 87586-2 LOINC %NRB L=0.0 H=0.2 08588-6 LOINC #NRB L=0.000 H=0.012 83616-0 LOINC MANUAL DIFF SEE BELOW A SEG [...] L=0 H=0 BLASTS 0 % L=0 H=0 44891-6 LOINC PANDA LYMPHS 0.00 % L=0.00 H=5.00 SMUDGE CELLS 0 % L=0 H=0 NRBC 0.0 % L=0.0 H=0.0 PLTS DECREASED NEUT # 0.7 10^3uL L=1.9 H=7.6 LL LYMPH # 1.2 10^3uL L=0.9 H=4.9 MONO # 0.0 10^3uL L=0.1 H=0.9 L EOS # 0.1 10^3uL L=0.0 H=0.6 712-0 LOINC BASO # 0.0 10^3uL L=0.0 H=0.1 04833-8 LOINC RBC MORPH NOT INDICATED COMPREHENSIVE METABOLIC PANE L - Collect Date/Time: 01/08/2025 13:23 [facility] ID: [id number] [address] [place], [place], [id number] LOINC: 73760-4 Test Value Unit Reference Range Code Code [...] 2028-9 LOINC ANION GAP 10 L=10 H=20 69152-3 LOINC OSMOLALITY 288 mOs/kG L=280 H=296 43665-2 LOINC BUN/CREAT 13.3 3097-3 LOINC CALCIUM 8.9 mg/dL L=8.3 H=10.5 44948-3 LOINC AST 23 U/L L=15 H=46 1920-8 LOINC ALT 15 U/L L=9 H=72 1742-6 LOINC ALKALINE PHOS 61 U/L L=38 H=126 6768-6 LOINC TOTAL BILI 0.3 mg/dL L=0.2 H=1.3 1975-2 LOINC ALBUMIN 3.9 G/dL L=3.5 H=5.0 1751-7 LOINC TOTAL PROTEIN 7.6 g/L L=6.3 H=8.2 2885-2 LOINC A/G RATIO 1.1 90372-2 LOINC AGE 59 66683-8 LOINC eGFR NON-AFR 69 ml/min eGFR AFR AMER 83 ml/min Social History Type Status Start Date End Date Code Code Syst em Smoking History Unknown if ever smoked [address] Sex Female Hospital Discharge Instructions Should you have any questions prior to discharge, please contact a member of your healthcare team. If you have left the hospital and have any questions, please contact your primary care physician. Reason For Referral No Data Found Plan of Treatment Picc Line Removal 03/27/2025 PICC Line Placement 03/27/2025 US Venous Right UE ([id number]) 03/27/2025 Encounters Encounter Diagnosis Start Date Code Code Sys tem Myelodysplastic syndrome, unspecified 01/08/2025 SNOMED-CT Personal Care Team Section Performer Name Performer Role Active Date Inactive LAURIE Hidalgo PCP - Primary care physician
--- OUTSIDE RECORDS SUMMARY | 2025-04-01 09:33 | XMS_ITS ---
Author Organization Unknown Address [address] [place] [address] [phone] Phone Care Team Providers Care Data Collection Technician Name Role Phone PIPPA GREGORIONISHA Attending Unavailable JOHAN SULLIVAN Primary Unavailable Immunization Immunization Date Status Additional Notes Code Code System Tdap 03/26/2021 Completed 115 CVX Social History Type Status Start Date End Date Code Code Syst em Smoking History Unknown if ever smoked [address] Sex Female Vital Signs Vital Sign Value Unit [place] Value [place] Unit Date/Time Recent/Initial? Code Code System Body Mass Index 34.97 kg/m2 02/04/2025 09:56 Initial 57798 -5 [facility] Systolic Blood Pressure 168 mm[Hg] 02/04/2025 09:53 Initial 8480- 6 LOINC Diastolic Blood Pressure 73 mm[Hg] 02/04/2025 09:53 Initial 8462- 4 INC Body Surface Area 2.24 m2 02/04/2025 09:56 Initial 3140- 1 LOINC Height 172.720 0 cm 68.00 in 02/04/2025 09:56 Initial 8302- 2 LOINC O2 Saturation 100 % 2024 09:53 Initial 26122 -5 LOINC Pulse 99.0 /min 02/04/2025 09:53 Initial 8867- 4 LOINC Respiration 22 /min 02/05/20 09:53 Initial 9279- 1 LOINC Temperature 36.3 Freda 97.3 F 02/05/20 09:53 Initial 8310- 5 LOINC Weight 104.33 kg 230.00 lbs 02/04/2025 09:56 Initial 97728 -7 INC Hospital Discharge Instructions Should you have any questions prior to discharge, please contact a member of your healthcare team. If you have left the hospital and have any questions, please contact your primary care physician. Reason For Referral No Data Found Plan of Treatment Picc Line Removal 03/27/2025 PICC Line Placement 03/27/2025 US Venous Right UE ([id number]) 03/27/2025 Encounters Encounter Diagnosis Start Date Code Code Sys tem Myelodysplastic syndrome, unspecified 02/04/2025 SNOMED-CT Personal Care Team Section Performer Name Performer Role Active Date Inactive LAURIE Hidalgo PCP - Primary care physician
--- OUTSIDE RECORDS SUMMARY | 2025-04-01 09:33 | XMS_ITS ---
Author Organization Unknown Address [address] [place] [address] [phone] Phone Care Team Providers Care Parts Counter Salesperson Name Role Phone PIPPA BURCIAGAWade Attending Unavailable JOHAN SULLIVAN Primary Unavailable Immunization Immunization Date Status Additional Notes Code Code System Tdap 03/26/2021 Completed 115 CVX Results CBC W/ DIFF - Collect Date/T sarah: 01/23/2025 14:13 [facility] ID: [id number] [address] [place] [address], [phone] LOINC: 03846-2 Test Value Unit Reference Range Code Code [...] H=36.0 L PLATELETS 32 10^3uL L=100 H=400 35551-4 LOINC L RDW 17.1 % L=11.7 H=15.5 H %GRAN L=40.0 H=70.0 02325-8 LOINC %LYMPH L=20.0 H=45.0 736-9 LOINC %MONO L=2.0 H=10.0 30373-7 LOINC %EOS L=0.0 H=6.0 713-8 LOINC %BASO L=0.0 H=3.0 706-2 LOINC #NEUT L=1.9 H=7.6 58667-4 LOINC CALLED TO: CHRISTOPH MÁRQUEZ AT: 1448 01/23/25 BY: SDK #LYMPH L=0.9 H=4.9 03185-7 LOINC #MONO L=0.1 H=0.9 94781-5 LOINC #EOS L=0.0 H=0.6 712-0 LOINC #BASO L=0.00 H=0.10 51305-0 LOINC #IM GRANS L=0.0 H=7.0 91742-9 LOINC %IM GRANS L=0.0 H=5.0 40593-2 LOINC %NRB L=0.0 H=0.2 53605-5 LOINC #NRB L=0.000 H=0.012 22165-3 LOINC MANUAL DIFF SEE BELOW A SEG [...] L=0 H=0 BLASTS 0 % L=0 H=0 32532-0 LOINC PANDA LYMPHS 10.00 % L=0.00 H=5.00 H SMUDGE CELLS 0 % L=0 H=0 NRBC 0.0 % L=0.0 H=0.0 PLTS DECREASED NEUT # 0.6 10^3uL L=1.9 H=7.6 LL LYMPH # 1.0 10^3uL L=0.9 H=4.9 MONO # 0.1 10^3uL L=0.1 H=0.9 EOS # 0.1 10^3uL L=0.0 H=0.6 712-0 LOINC BASO # 0.0 10^3uL L=0.0 H=0.1 22229-0 LOINC RBC MORPH NOT INDICATED COMPREHENSIVE METABOLIC PANE L - Collect Date/Time: 01/23/2025 14:13 [facility] ID: [id number] [address] [place], [place], [phone] LOINC: 43302-8 Test Value Unit Reference Range Code Code [...] 2028-9 LOINC ANION GAP 9 L=10 H=20 19824-2 LOINC L OSMOLALITY 291 mOs/kG L=280 H=296 29575-7 LOINC BUN/CREAT 13.8 3097-3 LOINC CALCIUM 8.7 mg/dL L=8.3 H=10.5 47047-3 LOINC AST 20 U/L L=15 H=46 1920-8 LOINC ALT 12 U/L L=9 H=72 1742-6 LOINC ALKALINE PHOS 71 U/L L=38 H=126 6768-6 LOINC TOTAL BILI 0.2 mg/dL L=0.2 H=1.3 1975-2 LOINC ALBUMIN 3.7 G/dL L=3.5 H=5.0 1751-7 LOINC TOTAL PROTEIN 6.8 g/L L=6.3 H=8.2 2885-2 LOINC A/G RATIO 1.2 75678-8 LOINC AGE 59 82482-6 LOINC eGFR NON-AFR 79 ml/min eGFR AFR AMER 96 ml/min BB ABO AND RH TYPE - Collect Date/Time: 01/23/2025 14:13 [facility] ID: [id number] [address] [place], [place], [phone] LOINC: 17863-0 Test Value Unit Reference Range Code Code System Flag ABO TYPE A 883-9 LOINC RH TYPE POSITIVE BB RETYPE ABO AND RH TYPE - Collect Date/Time: 01/23/2025 14:13 [facility] ID: [id number] [address] [place], [place], [phone] LOINC: 02408-8 Test Value Unit Reference Range Code Code System Flag ABO TYPE A 883-9 LOINC RH TYPE POSITIVE Social History Type Status Start Date End Date Code Code Syst em Smoking History Unknown if ever smoked [address] Sex Female Hospital Discharge Instructions Should you have any questions prior to discharge, please contact a member of your healthcare team. If you have left the hospital and have any questions, please contact your primary care physician. Reason For Referral No Data Found Plan of Treatment Picc Line Removal 03/27/2025 PICC Line Placement 03/27/2025 US Venous Right UE ([id number]) 03/27/2025 Encounters Encounter Diagnosis Start Date Code Code Sys tem Myelodysplastic syndrome, unspecified 01/23/2025 SNOMED-CT Personal Care Team Section Performer Name Performer Role Active Date Inactive LAURIE Hidalgo PCP - Primary care physician
--- OUTSIDE RECORDS SUMMARY | 2025-04-01 09:34 | XMS_ITS ---
Author Organization Unknown Address [address] [place] [address] [phone] Phone Care Team Providers Care Chief Lending Officer Name Role Phone JOHAN SULLIVAN Attending Unavailable Immunization Immunization Date Status Additional Notes Code Code System Tdap 03/26/2021 Completed 115 CVX Results US GALLBLADDER - Completed: 12/25/2024 12:00 LOINC: \TM00\\12PI\\DRAo\\BM09\ \MRHo\ [address] [address] ---------NAME--------- NUMBER SEX AGE ADMIT DISC. XRAY# F/C TYPE CHUYITA TONY [id number] F 59 12/25/24 12/25/24 09531 [facility]J O/P DATE OF : 1965 M/R# [id number] PH#: [phone] RM \MRHx\ LOCATION: TRANSCRIBED: 12/25/24 13:39 US GALLBLADDER [id number] COMPLETED:12/25/24 12:00 APC 82929 {REASON-US ABD: ABDOMINAL PAIN PHYSICIAN: JOHAN R [...] of gallstones or acute cholecystitis. Hepatic steatosis. TICAL SCIENCE RESEARCH ASSISTANT \ITLo\ \UNDo\ \UNDx\ \ITLx\ Reviewed and Electronically Signed by: Ivan Acosta MD Signed Date: 12/25/24 13:39 Social History Type Status Start Date End Date Code Code Syst em Smoking History Unknown if ever smoked [address] Sex Female Hospital Discharge Instructions Should you have any questions prior to discharge, please contact a member of your healthcare team. If you have left the hospital and have any questions, please contact your primary care physician. Reason For Referral No Data Found Plan of Treatment Picc Line Removal 03/27/2025 PICC Line Placement 03/27/2025 US Venous Right UE ([id number]) 03/27/2025 Encounters Encounter Diagnosis Start Date Code Code Sys tem Fatty (change of) liver, not elsewhere classified 04/2025 SNOMED-CT Personal Care Team Section Performer Name Performer Role Active Date Inactive LAURIE Hidalgo PCP - Primary care physician Imaging Narrative Notes [facility] 12/25/2024 13:42 [facility] [address] [place] [address] ---------NAME--------- NUMBER SEX AGE ADMIT DISC. XRAY# F/C TYPE CHUYITA TONY [id number] F 59 12/25/24 12/25/24 [address] [facility] O/P DATE OF : 1965 M/R# [id number] #: [id number] LOCATION: TRANSCRIBED: 12/25/24 13:39 US GALLBLADDER [id number] COMPLETED:12/25/24 12:00 APC 53145 {REASON-US ABD: ABDOMINAL PAIN PHYSICIAN: JOHAN RADIOLOGY [...] of gallstones or acute cholecystitis. Hepatic steatosis. TICAL SCIENCE RESEARCH ASSISTANT Reviewed and Electronically Signed by: Ivan Acosta MD Signed Date: 12/25/24 13:39
[2025-04-01 10:16] LABS: Hematocrit 24.7 % (35.0-49.0); Hemoglobin 7.9 g/dL (12.0-15.0); Immature Platelet Fraction Pct 1.8 % (1.0-7.0); Mean Corpuscular HGB Conc 32.0 g/dL (32-36); Mean Corpuscular Hemoglobin 29.6 pg (27.0-31.0); Mean Corpuscular Volume 92.5 fL (78.0-102.0); Platelet Count Result 113 K/mm3 (150-420); Red Blood Count 2.67 M/mm3 (4.20-5.40)
[2025-04-01 10:19] LABS: White Blood Count 1.3 K/mm3 (4.8-10.8)
[2025-04-01 10:25] LABS: Alanine Aminotransferase 9 U/L (6-35); Albumin Level 3.1 g/dL (3.5-5.1); Alkaline Phosphatase 64 U/L (38-126); Anion Gap 3 mmol/L (4-12); Aspartate Amino Transferase 21 U/L (14-36); Bilirubin,Total 0.6 mg/dL (0.2-1.3); Blood Urea Nitrogen 3 mg/dL (7-17); Calcium 7.8 mg/dL (8.4-10.2); Carbon Dioxide 29 mmol/L (22-30); Chloride 107 mmol/L (98-107); Estimated Glomerular Filt Rate > 60; Glucose 99 mg/dL (65-110); Osmolality Calculated 284 mOsm/kg (285-295); Potassium 3.3 mmol/L (3.4-5.0); Sodium 139 mmol/L (137-145); Total Protein 6.3 g/dL (6.3-8.2)
--- NOTE | 2025-04-01 10:32 | PC.NURSE ---
Patient here to get labs- reviewed blood results. Spoke to Dr. Mar. No new orders repeat blood work on or Tuesday this week.
[2025-04-01 10:37] LABS: Anisocytosis 2+; Band Neutrophils Percent 0 % (0-6); Basophils Absolute Manual 0.01 K/mm3 (0-0.1); Basophils Percent Manual 1 % (0-1); Eosinophils Absolute Manual 0.05 K/mm3 (0.02-0.50); Eosinophils Percent Manual 4 % (1-6); Hypochromasia 2+; Lymphocytes Absolute Manual 0.54 K/mm3 (1.1-4.5); Lymphocytes Percent Manual 42 % (18-44); Monocytes Absolute Manual 0.05 K/mm3 (0.1-0.90); Monocytes Percent Manual 4 % (3-9); Neutrophils Absolute Manual 0.63 K/mm3 (1.3-6.7); Neutrophils Percent Manual 49 % (46-73); Poikilocytosis 1+; Total Cells Counted 100
[2025-04-01 10:38] LABS: Schistocytes None Seen
== END 2025-04-01 09:29 | disposition home or self-care (01) ==
LOC: CHSTREATRM 09:30
PROVIDERS: PCP Family Medicine; Visit Provider Internal Medicine Hematology
DX: D46.9 Myelodysplastic syndrome, unspecified (principal)
CPT/HCPCS: 36415; 80053; 85025; 85055; 86850; 86900; 86901

== ENCOUNTER 2025-04-04 11:43 | Outpatient (CLI) | payer MEDICARE, MEDICAID, SELFPAY ==
--- OUTSIDE RECORDS SUMMARY | 2025-04-04 11:48 | XMS_ITS ---
Author Organization Unknown Address [address] [place] [phone] Phone Care Team Providers Care Admissions Specialist Name Role Phone PIPPA GREGORIONISHA Attending Unavailable JOHAN SULLIVAN Primary Unavailable Immunization Immunization Date Status Additional Notes Code Code System Tdap 03/26/2021 Completed 115 CVX Social History Type Status Start Date End Date Code Code Syst em Smoking History Unknown if ever smoked [address] Sex Female Vital Signs Vital Sign Value Unit [place] Value [place] Unit Date/Time Recent/Initial? Code Code System Body Mass Index 34.97 kg/m2 02/04/2025 09:56 Initial 45402 -5 [facility] Systolic Blood Pressure 168 mm[Hg] 02/04/2025 09:53 Initial 8480- 6 LOINC Diastolic Blood Pressure 73 mm[Hg] 02/04/2025 09:53 Initial 8462- 4 INC Body Surface Area 2.24 m2 02/04/2025 09:56 Initial 3140- 1 LOINC Height 172.720 0 cm 68.00 in 02/04/2025 09:56 Initial 8302- 2 LOINC O2 Saturation 100 % 2024 09:53 Initial 94347 -5 INC Pulse 99.0 /min 02/04/2025 09:53 Initial 8867- 4 LOINC Respiration 22 /min 02/05/20 09:53 Initial 9279- 1 LOINC Temperature 36.3 Freda 97.3 F 02/05/20 09:53 Initial 8310- 5 LOINC Weight 104.33 kg 230.00 lbs 02/04/2025 09:56 Initial 72964 -7 INC Hospital Discharge Instructions Should you have any questions prior to discharge, please contact a member of your healthcare team. If you have left the hospital and have any questions, please contact your primary care physician. Reason For Referral No Data Found Plan of Treatment Picc Line Removal 03/27/2025 PICC Line Placement 03/27/2025 US Venous Right UE ([id number]) 03/27/2025 Encounters Encounter Diagnosis Start Date Code Code Sys tem Myelodysplastic syndrome, unspecified 02/04/2025 SNOMED-CT Personal Care Team Section Performer Name Performer Role Active Date Inactive LAURIE Hidalgo PCP - Primary care physician
--- OUTSIDE RECORDS SUMMARY | 2025-04-04 11:48 | XMS_ITS ---
Author Organization Unknown Address [address] [place] [phone] Phone Care Team Providers Care Airport Operations Coordinator Name Role Phone PIPPA KNOX Attending Unavailable JOHAN SULLIVAN Primary Unavailable Immunization Immunization Date Status Additional Notes Code Code System Tdap 03/26/2021 Completed 115 CVX Results US VENOUS RIGHT UE - Complet ed: 03/27/2025 09:54 LOINC: 08985-2 \TM00\\12PI\\DRAo\\BM09\ \MRHo\ [address] [address] ---------NAME--------- NUMBER SEX AGE ADMIT DISC. XRAY# F/C TYPE CHUYITA TONY [id number] F 60 03/27/25 19635 MB O/P DATE OF : 1965 M/R# [id number] PH#: [phone] RM 26-IF \MRHx\ LOCATION: TRANSCRIBED: 03/27/25 10:23 [place] [address] COMPLETED:03/27/25 9:54 [facility] [address] {REASON-US VENOUS RIGHT UE: MTELODYSPIASTIC SYNDROME PHYSICIAN: [...] or worsen, short-interval follow-up study is suggested. ERS INSPECTOR \ITLo\ \UNDo\ \UNDx\ \ITLx\ Reviewed and Electronically Signed by: Ivan Acosta MD Signed Date: 03/27/25 10:23 03/27/25.1026.AJH.to JOHAN via fax Social History Type Status Start Date End Date Code Code Syst em Smoking History Unknown if ever smoked [address] Sex Female Vital Signs Vital Sign Value Unit [place] Value [place] Unit Date/Time Recent/Initial? Code Code System Body Mass Index 32.26 kg/m2 03/27/2025 08:53 Initial 05869 -5 LOINC Systolic Blood Pressure 131 mm[Hg] 03/27/2025 08:52 Initial 8480- 6 LOINC Diastolic Blood Pressure 67 mm[Hg] 03/27/2025 08:52 Initial 8462- 4 LOINC Body Surface Area 2.10 m2 03/27/2025 08:53 Initial 3140- 1 LOINC Height 170.180 0 cm 67.00 in 03/27/2025 08:53 Initial 8302- 2 LOINC O2 Saturation 95 % 2024 08:52 Initial 17756 -5 LOINC Pulse 77.0 /min 03/27/2025 08:52 Initial 8867- 4 LOINC Respiration 22 /min 03/27/20 08:52 Initial 9279- 1 LOINC Temperature 36.7 Freda 98.1 F 03/27/20 08:52 Initial 8310- 5 LOINC Weight 93.44 kg 206.00 lbs 03/27/2025 08:53 Initial 70767 -7 LOINC Hospital Discharge Instructions Should you have any questions prior to discharge, please contact a member of your healthcare team. If you have left the hospital and have any questions, please contact your primary care physician. Reason For Referral No Data Found Procedures Procedure Name Date Status Code Code Syste m INSERTION PICC W/RS&I 5 YR/> completed 73775 CPT Plan of Treatment Picc Line Removal 03/27/2025 PICC Line Placement 03/27/2025 US Venous Right UE ([id number]) 03/27/2025 Encounters Encounter Diagnosis Start Date Code Code Sys tem Myelodysplastic syndrome, unspecified 03/27/2025 SNOMED-CT Personal Care Team Section Performer Name Performer Role Active Date Inactive LAURIE Hidalgo PCP - Primary care physician Imaging Narrative Notes [facility] 03/27/2025 10:26 [facility] [address] [place] [address] ---------NAME--------- NUMBER SEX AGE ADMIT DISC. XRAY# F/C TYPE CHUYITA TONY [id number] F 60 03/27/25 52109 MB O/P DATE OF : 1965 M/R# [id number] #: [id number] 26-IF LOCATION: TRANSCRIBED: 03/27/25 10:23 [place] [address] COMPLETED:03/27/25 9:54 [facility] [address] {REASON-US VENOUS RIGHT UE: MTELODYSPIASTIC SYNDROME PHYSICIAN: [...] or worsen, short-interval follow-up study is suggested. ERS INSPECTOR Reviewed and Electronically Signed by: Ivan Acosta MD Signed Date: 03/27/25 10:23 03/27/25.1026.AJH.david PRADO via fax
--- OUTSIDE RECORDS SUMMARY | 2025-04-04 11:48 | XMS_ITS ---
Author Organization Unknown Address [address] [place] [phone] Phone Care Team Providers Care Relays Draftsperson Name Role Phone PIPPA BURCIAGAWade Attending Unavailable JOHAN SULLIVAN Primary Unavailable Immunization Immunization Date Status Additional Notes Code Code System Tdap 03/26/2021 Completed 115 CVX Results CBC W/ DIFF - Collect Date/T sarah: 01/23/2025 14:13 [facility] ID: [id number] [address] [place] [address], [id number] LOINC: 69816-2 Test Value Unit Reference Range Code Code [...] H=36.0 L PLATELETS 32 10^3uL L=100 H=400 39540-5 LOINC L RDW 17.1 % L=11.7 H=15.5 H %GRAN L=40.0 H=70.0 35277-4 LOINC %LYMPH L=20.0 H=45.0 736-9 LOINC %MONO L=2.0 H=10.0 38353-6 LOINC %EOS L=0.0 H=6.0 713-8 LOINC %BASO L=0.0 H=3.0 706-2 LOINC #NEUT L=1.9 H=7.6 03462-4 LOINC CALLED TO: CHRISTOPH MÁRQUEZ AT: 1448 01/23/25 BY: SDK #LYMPH L=0.9 H=4.9 34177-1 LOINC #MONO L=0.1 H=0.9 34084-4 LOINC #EOS L=0.0 H=0.6 712-0 LOINC #BASO L=0.00 H=0.10 65590-6 LOINC #IM GRANS L=0.0 H=7.0 94418-8 LOINC %IM GRANS L=0.0 H=5.0 86851-4 LOINC %NRB L=0.0 H=0.2 65470-9 LOINC #NRB L=0.000 H=0.012 75946-6 LOINC MANUAL DIFF SEE BELOW A SEG [...] L=0 H=0 BLASTS 0 % L=0 H=0 11735-4 LOINC PANDA LYMPHS 10.00 % L=0.00 H=5.00 H SMUDGE CELLS 0 % L=0 H=0 NRBC 0.0 % L=0.0 H=0.0 PLTS DECREASED NEUT # 0.6 10^3uL L=1.9 H=7.6 LL LYMPH # 1.0 10^3uL L=0.9 H=4.9 MONO # 0.1 10^3uL L=0.1 H=0.9 EOS # 0.1 10^3uL L=0.0 H=0.6 712-0 LOINC BASO # 0.0 10^3uL L=0.0 H=0.1 22608-3 LOINC RBC MORPH NOT INDICATED COMPREHENSIVE METABOLIC PANE L - Collect Date/Time: 01/23/2025 14:13 [facility] ID: [id number] [address] [place], [place], [id number] LOINC: 93574-3 Test Value Unit Reference Range Code Code [...] 2028-9 LOINC ANION GAP 9 L=10 H=20 78328-3 LOINC L OSMOLALITY 291 mOs/kG L=280 H=296 35481-9 LOINC BUN/CREAT 13.8 3097-3 LOINC CALCIUM 8.7 mg/dL L=8.3 H=10.5 74516-8 LOINC AST 20 U/L L=15 H=46 1920-8 LOINC ALT 12 U/L L=9 H=72 1742-6 LOINC ALKALINE PHOS 71 U/L L=38 H=126 6768-6 LOINC TOTAL BILI 0.2 mg/dL L=0.2 H=1.3 1975-2 LOINC ALBUMIN 3.7 G/dL L=3.5 H=5.0 1751-7 LOINC TOTAL PROTEIN 6.8 g/L L=6.3 H=8.2 2885-2 LOINC A/G RATIO 1.2 47149-7 LOINC AGE 59 37891-5 LOINC eGFR NON-AFR 79 ml/min eGFR AFR AMER 96 ml/min BB ABO AND RH TYPE - Collect Date/Time: 01/23/2025 14:13 [facility] ID: [id number] [address] [place], [place], [phone] LOINC: 23059-8 Test Value Unit Reference Range Code Code System Flag ABO TYPE A 883-9 LOINC RH TYPE POSITIVE BB RETYPE ABO AND RH TYPE - Collect Date/Time: 01/23/2025 14:13 [facility] ID: [id number] [address] [place], [place], [id number] LOINC: 47823-7 Test Value Unit Reference Range Code Code System Flag ABO TYPE A 883-9 LOINC RH TYPE POSITIVE Social History Type Status Start Date End Date Code Code Syst em Smoking History Unknown if ever smoked [address] Sex Female Hospital Discharge Instructions Should you have any questions prior to discharge, please contact a member of your healthcare team. If you have left the hospital and have any questions, please contact your primary care physician. Reason For Referral No Data Found Plan of Treatment Picc Line Removal 03/27/2025 PICC Line Placement 03/27/2025 US Venous Right UE ([id number]) 03/27/2025 Encounters Encounter Diagnosis Start Date Code Code Sys tem Myelodysplastic syndrome, unspecified 01/23/2025 SNOMED-CT Personal Care Team Section Performer Name Performer Role Active Date Inactive LAURIE Hidalgo PCP - Primary care physician
--- OUTSIDE RECORDS SUMMARY | 2025-04-04 11:48 | XMS_ITS ---
Author Organization Unknown Address [address] [place] [phone] Phone Care Team Providers Care Strip Mine Supervisor Name Role Phone JOHAN SULLIVAN Attending Unavailable Immunization Immunization Date Status Additional Notes Code Code System Tdap 03/26/2021 Completed 115 CVX Results US GALLBLADDER - Completed: 12/25/2024 12:00 LOINC: \TM00\\12PI\\DRAo\\BM09\ \MRHo\ [address] [address] ---------NAME--------- NUMBER SEX AGE ADMIT DISC. XRAY# F/C TYPE CHUYITA TONY [id number] F 59 12/25/24 12/25/24 61708 [facility] O/P DATE OF : 1965 M/R# [id number] PH#: [phone] RM \MRHx\ LOCATION: TRANSCRIBED: 12/25/24 13:39 US GALLBLADDER 28056 COMPLETED:12/25/24 12:00 APC 61409 {REASON-US ABD: ABDOMINAL PAIN PHYSICIAN: JOHAN R [...] of gallstones or acute cholecystitis. Hepatic steatosis. NE ASSEMBLER \ITLo\ \UNDo\ \UNDx\ \ITLx\ Reviewed and Electronically Signed by: Ivan Acosta MD Signed Date: 12/25/24 13:39 Social History Type Status Start Date End Date Code Code Syst em Smoking History Unknown if ever smoked [address] Sex Female Hospital Discharge Instructions Should you have any questions prior to discharge, please contact a member of your healthcare team. If you have left the hospital and have any questions, please contact your primary care physician. Reason For Referral No Data Found Plan of Treatment Picc Line Removal 03/27/2025 PICC Line Placement 03/27/2025 US Venous Right UE ([id number]) 03/27/2025 Encounters Encounter Diagnosis Start Date Code Code Sys tem Fatty (change of) liver, not elsewhere classified 04/2025 SNOMED-CT Personal Care Team Section Performer Name Performer Role Active Date Inactive LAURIE Hidalgo PCP - Primary care physician Imaging Narrative Notes [facility] 12/25/2024 13:42 [facility] [address] [place] [address] ---------NAME--------- NUMBER SEX AGE ADMIT DISC. XRAY# F/C TYPE CHUYITA TONY [id number] F 59 12/25/24 12/25/24 [address] [facility] O/P DATE OF : 1965 M/R# [id number] #: [id number] LOCATION: TRANSCRIBED: 12/25/24 13:39 US GALLBLADDER [id number] COMPLETED:12/25/24 12:00 APC 03650 {REASON-US ABD: ABDOMINAL PAIN PHYSICIAN: JOHAN RADIOLOGY [...] of gallstones or acute cholecystitis. Hepatic steatosis. NE ASSEMBLER Reviewed and Electronically Signed by: Ivan Acosta MD Signed Date: 12/25/24 13:39
--- OUTSIDE RECORDS SUMMARY | 2025-04-04 11:48 | XMS_ITS ---
Author Organization Unknown Address [address] [place] [address] [phone] Phone Care Team Providers Care Market Development Analyst Name Role Phone JOHAN SULLIVAN Attending Unavailable Immunization Immunization Date Status Additional Notes Code Code System Tdap 03/26/2021 Completed 115 CVX Results CBC W/ DIFF - Collect Date/T sarah: 01/08/2025 13:23 [facility] ID: [id number] [place] [address], [id number] LOINC: 10128-0 Test Value Unit Reference Range Code Code [...] H=36.0 L PLATELETS 43 10^3uL L=100 H=400 23691-5 LOINC L RDW 16.1 % L=11.7 H=15.5 H %GRAN L=40.0 H=70.0 52256-3 LOINC %LYMPH L=20.0 H=45.0 736-9 LOINC %MONO L=2.0 H=10.0 24917-7 LOINC %EOS L=0.0 H=6.0 713-8 LOINC %BASO L=0.0 H=3.0 706-2 LOINC #NEUT L=1.9 H=7.6 11863-3 LOINC #LYMPH L=0.9 H=4.9 04165-2 LOINC #MONO L=0.1 H=0.9 06072-7 LOINC #EOS L=0.0 H=0.6 712-0 LOINC #BASO L=0.00 H=0.10 60440-8 LOINC #IM GRANS L=0.0 H=7.0 09694-4 LOINC %IM GRANS L=0.0 H=5.0 56151-5 LOINC %NRB L=0.0 H=0.2 69065-0 LOINC #NRB L=0.000 H=0.012 85565-0 LOINC MANUAL DIFF SEE BELOW A SEG [...] L=0 H=0 BLASTS 0 % L=0 H=0 27691-6 LOINC PANDA LYMPHS 0.00 % L=0.00 H=5.00 SMUDGE CELLS 0 % L=0 H=0 NRBC 0.0 % L=0.0 H=0.0 PLTS DECREASED NEUT # 0.7 10^3uL L=1.9 H=7.6 LL LYMPH # 1.2 10^3uL L=0.9 H=4.9 MONO # 0.0 10^3uL L=0.1 H=0.9 L EOS # 0.1 10^3uL L=0.0 H=0.6 712-0 LOINC BASO # 0.0 10^3uL L=0.0 H=0.1 31381-6 LOINC RBC MORPH NOT INDICATED COMPREHENSIVE METABOLIC PANE L - Collect Date/Time: 01/08/2025 13:23 [facility] ID: [id number] [address] [place], [place], [id number] LOINC: 35932-6 Test Value Unit Reference Range Code Code [...] 2028-9 LOINC ANION GAP 10 L=10 H=20 28533-2 LOINC OSMOLALITY 288 mOs/kG L=280 H=296 73929-2 LOINC BUN/CREAT 13.3 3097-3 LOINC CALCIUM 8.9 mg/dL L=8.3 H=10.5 96096-8 LOINC AST 23 U/L L=15 H=46 1920-8 LOINC ALT 15 U/L L=9 H=72 1742-6 LOINC ALKALINE PHOS 61 U/L L=38 H=126 6768-6 LOINC TOTAL BILI 0.3 mg/dL L=0.2 H=1.3 1975-2 LOINC ALBUMIN 3.9 G/dL L=3.5 H=5.0 1751-7 LOINC TOTAL PROTEIN 7.6 g/L L=6.3 H=8.2 2885-2 LOINC A/G RATIO 1.1 69911-4 LOINC AGE 59 80202-4 LOINC eGFR NON-AFR 69 ml/min eGFR AFR AMER 83 ml/min Social History Type Status Start Date End Date Code Code Syst em Smoking History Unknown if ever smoked [id number] Sex Female Hospital Discharge Instructions Should you have any questions prior to discharge, please contact a member of your healthcare team. If you have left the hospital and have any questions, please contact your primary care physician. Reason For Referral No Data Found Plan of Treatment Picc Line Removal 03/27/2025 PICC Line Placement 03/27/2025 US Venous Right UE ([id number]) 03/27/2025 Encounters Encounter Diagnosis Start Date Code Code Sys tem Myelodysplastic syndrome, unspecified 01/08/2025 SNOMED-CT Personal Care Team Section Performer Name Performer Role Active Date Inactive LAURIE Hidalgo PCP - Primary care physician
[2025-04-04 12:00] VITALS: BMI 31.1
[2025-04-04 12:10] VITALS: BP 113/72; PULSE 80; RESP 16; TEMP 36.6; O2SAT 96
[2025-04-04 12:12] LABS: Hematocrit 26.2 % (35.0-49.0); Hemoglobin 8.4 g/dL (12.0-15.0); Immature Platelet Fraction Pct 1.8 % (1.0-7.0); Mean Corpuscular HGB Conc 32.1 g/dL (32-36); Mean Corpuscular Hemoglobin 29.6 pg (27.0-31.0); Mean Corpuscular Volume 92.3 fL (78.0-102.0); Platelet Count Result 89 K/mm3 (150-420); Red Blood Count 2.84 M/mm3 (4.20-5.40)
[2025-04-04 12:13] LABS: White Blood Count 1.9 K/mm3 (4.8-10.8)
[2025-04-04] MEDS: ALTEPLASE 2 MG VIAL (CATHFLO) 4 MG IV PUSH (12:21)
[2025-04-04 12:23] LABS: Alanine Aminotransferase 11 U/L (6-35); Albumin Level 3.5 g/dL (3.5-5.1); Alkaline Phosphatase 62 U/L (38-126); Anion Gap 4 mmol/L (4-12); Aspartate Amino Transferase 22 U/L (14-36); Bilirubin,Total 0.6 mg/dL (0.2-1.3); Blood Urea Nitrogen 6 mg/dL (7-17); Calcium 8.3 mg/dL (8.4-10.2); Carbon Dioxide 29 mmol/L (22-30); Chloride 107 mmol/L (98-107); Estimated CRCL calculation 86 ml/min; Estimated Glomerular Filt Rate > 60; Glucose 136 mg/dL (65-110); Osmolality Calculated 289 mOsm/kg (285-295); Potassium 3.3 mmol/L (3.4-5.0); Sodium 140 mmol/L (137-145); Total Protein 6.8 g/dL (6.3-8.2)
[2025-04-04 12:27] LABS: Hemoglobin A1C 5.9 % (<5.7)
[2025-04-04 12:33] LABS: Band Neutrophils Percent 0 % (0-6); Neutrophils Absolute Manual 1.17 K/mm3 (1.3-6.7); Neutrophils Percent Manual 62 % (46-73); Total Cells Counted 100
[2025-04-04 12:34] LABS: Anisocytosis 2+; Basophils Absolute Manual 0.01 K/mm3 (0-0.1); Basophils Percent Manual 1 % (0-1); Eosinophils Absolute Manual 0.01 K/mm3 (0.02-0.50); Eosinophils Percent Manual 1 % (1-6); Hypochromasia 2+; Lymphocytes Absolute Manual 0.64 K/mm3 (1.1-4.5); Lymphocytes Percent Manual 34 % (18-44); Monocytes Absolute Manual 0.03 K/mm3 (0.1-0.90); Monocytes Percent Manual 2 % (3-9); Poikilocytosis 1+; Schistocytes None Seen
[2025-04-04 12:54] LABS: Thyroid Stimulating Hormone 0.248 uIU/mL (0.465-4.680)
[2025-04-04] MEDS: HEPARIN SODIUM LOCK FLUSH 500 UNITS/5 ML SYRINGE IV PUSH (14:18)
[2025-04-04 14:20] VITALS: BP 116/72; PULSE 80
--- NOTE | 2025-04-04 14:21 | PC.NURSE ---
Tolerated declotting picc line very well. See clinical notes.
[2025-04-04 15:27] LABS: Free T4 Free Thyroxine 1.29 ng/dL (0.78-2.19)
== END 2025-04-04 11:44 | disposition home or self-care (01) ==
PROVIDERS: PCP Family Medicine; Visit Provider Internal Medicine Hematology
DX: D46.21 Refractory anemia with excess of blasts 1 (principal); R94.6 Abnormal results of thyroid function studies; E11.9 Type 2 diabetes mellitus without complications
CPT/HCPCS: 36415; 80053; 83036; 84439; 84443; 85025; 85055; 96374; J2997

== ENCOUNTER 2025-04-08 10:44 | Outpatient (CLI) | payer MEDICARE, SELFPAY ==
--- OUTSIDE RECORDS SUMMARY | 2025-04-08 10:52 | XMS_ITS | Encounter Summary ---
Author Organization [facility] Address [address] [place] [address] Care Team Providers Care Diesel Dragline Operator Name Role Phone Reagan Fonseca MD Primary Care Provider [phone] Encounter Details Date Type Department Care Team (Late st Contact Info) Description 12/03/2017 Abstract [facility] CONVERSION [address] [place] [address] , Generic Conversion, Social History Tobacco Use [...] on filedocumented in this encounter Care Teams Diesel Dragline Operator Relationship Specialty Start Date End Date Reagan Fonseca MD [address] [place] [address] PCP - General FAMILY PRACTICE 01/26/25 documented as of this encounter
--- OUTSIDE RECORDS SUMMARY | 2025-04-08 10:52 | XMS_ITS ---
Author Organization Unknown Address [address] [place] [address] [phone] Phone Care Team Providers Care Mechanic Chief Name Role Phone JOHAN SULLIVAN Attending Unavailable Immunization Immunization Date Status Additional Notes Code Code System Tdap 03/26/2021 Completed 115 CVX Results CBC W/ DIFF - Collect Date/T sarah: 01/08/2025 13:23 [facility] ID: [id number] [address] [place] [address], [phone] LOINC: 98672-0 Test Value Unit Reference Range Code Code [...] H=36.0 L PLATELETS 43 10^3uL L=100 H=400 90610-6 LOINC L RDW 16.1 % L=11.7 H=15.5 H %GRAN L=40.0 H=70.0 44858-2 LOINC %LYMPH L=20.0 H=45.0 736-9 LOINC %MONO L=2.0 H=10.0 09146-2 LOINC %EOS L=0.0 H=6.0 713-8 LOINC %BASO L=0.0 H=3.0 706-2 LOINC #NEUT L=1.9 H=7.6 62938-0 LOINC #LYMPH L=0.9 H=4.9 66946-9 LOINC #MONO L=0.1 H=0.9 88776-9 LOINC #EOS L=0.0 H=0.6 712-0 LOINC #BASO L=0.00 H=0.10 59345-2 LOINC #IM GRANS L=0.0 H=7.0 46325-1 LOINC %IM GRANS L=0.0 H=5.0 65180-2 LOINC %NRB L=0.0 H=0.2 03141-9 LOINC #NRB L=0.000 H=0.012 41267-7 LOINC MANUAL DIFF SEE BELOW A SEG [...] L=0 H=0 BLASTS 0 % L=0 H=0 27997-6 LOINC PANDA LYMPHS 0.00 % L=0.00 H=5.00 SMUDGE CELLS 0 % L=0 H=0 NRBC 0.0 % L=0.0 H=0.0 PLTS DECREASED NEUT # 0.7 10^3uL L=1.9 H=7.6 LL LYMPH # 1.2 10^3uL L=0.9 H=4.9 MONO # 0.0 10^3uL L=0.1 H=0.9 L EOS # 0.1 10^3uL L=0.0 H=0.6 712-0 LOINC BASO # 0.0 10^3uL L=0.0 H=0.1 09850-3 LOINC RBC MORPH NOT INDICATED COMPREHENSIVE METABOLIC PANE L - Collect Date/Time: 01/08/2025 13:23 [facility] ID: [id number] [address] [place], [place], [phone] LOINC: 23848-9 Test Value Unit Reference Range Code Code [...] 2028-9 LOINC ANION GAP 10 L=10 H=20 44307-0 LOINC OSMOLALITY 288 mOs/kG L=280 H=296 32342-3 LOINC BUN/CREAT 13.3 3097-3 LOINC CALCIUM 8.9 mg/dL L=8.3 H=10.5 07858-0 LOINC AST 23 U/L L=15 H=46 1920-8 LOINC ALT 15 U/L L=9 H=72 1742-6 LOINC ALKALINE PHOS 61 U/L L=38 H=126 6768-6 LOINC TOTAL BILI 0.3 mg/dL L=0.2 H=1.3 1975-2 LOINC ALBUMIN 3.9 G/dL L=3.5 H=5.0 1751-7 LOINC TOTAL PROTEIN 7.6 g/L L=6.3 H=8.2 2885-2 LOINC A/G RATIO 1.1 31834-0 LOINC AGE 59 23160-6 LOINC eGFR NON-AFR 69 ml/min eGFR AFR AMER 83 ml/min Social History Type Status Start Date End Date Code Code Syst em Smoking History Unknown if ever smoked [id number] Sex Female Hospital Discharge Instructions Should you have any questions prior to discharge, please contact a member of your healthcare team. If you have left the hospital and have any questions, please contact your primary care physician. Reason For Referral No Data Found Plan of Treatment Picc Line Removal 03/27/2025 PICC Line Placement 03/27/2025 US Venous Right UE ([id number]) 03/27/2025 Encounters Encounter Diagnosis Start Date Code Code Sys tem Myelodysplastic syndrome, unspecified 01/08/2025 SNOMED-CT Personal Care Team Section Performer Name Performer Role Active Date Inactive LAURIE Hidalgo PCP - Primary care physician
--- OUTSIDE RECORDS SUMMARY | 2025-04-08 10:52 | XMS_ITS | Encounter Summary ---
Author Organization [facility] Address [address] [place] [address] Care Team Providers Care Senior Oracle Database Administrator Name Role Phone Reagan Fonseca MD Primary Care Provider [phone] Encounter Details Date Type Department Care Team (Late st Contact Info) Description 02/24/2019 Abstract [facility] CONVERSION [address] [place] [address] , Generic Conversion, Social History Tobacco Use [...] on filedocumented in this encounter Care Teams Senior Oracle Database Administrator Relationship Specialty Start Date End Date Reagan Fonseca MD [address] [place] [address] PCP - General FAMILY PRACTICE 01/26/25 documented as of this encounter
--- OUTSIDE RECORDS SUMMARY | 2025-04-08 10:53 | XMS_ITS ---
Author Organization Unknown Address [address] [place] [phone] Phone Care Team Providers Care Milk Pickup Truck Driver Name Role Phone PIPPA KNOX Attending Unavailable JOHAN SULLIVAN Primary Unavailable Immunization Immunization Date Status Additional Notes Code Code System Tdap 03/26/2021 Completed 115 CVX Results US VENOUS RIGHT UE - Complet ed: 03/27/2025 09:54 LOINC: 90000-4 \TM00\\12PI\\DRAo\\BM09\ \MRHo\ [address] [address] ---------NAME--------- NUMBER SEX AGE ADMIT DISC. XRAY# F/C TYPE CHUYITA TONY [id number] F 60 03/27/25 87479 MB O/P DATE OF : 1965 M/R# [id number] PH#: [phone] RM 26-IF \MRHx\ LOCATION: TRANSCRIBED: 03/27/25 10:[place] [address] COMPLETED:03/27/25 9:54 [facility] [address] {REASON-US VENOUS RIGHT UE: MTELODYSPIASTIC SYNDROME PHYSICIAN: [...] or worsen, short-interval follow-up study is suggested. ACT LENS EDGE BUFFER \ITLo\ \UNDo\ \UNDx\ \ITLx\ Reviewed and Electronically Signed by: Ivan Acosta MD Signed Date: 03/27/25 10:23 03/27/25.1026.AJH.to JOHAN via fax Social History Type Status Start Date End Date Code Code Syst em Smoking History Unknown if ever smoked [id number] Sex Female Vital Signs Vital Sign Value Unit Hillpoint Value Hillpoint Unit Date/Time Recent/Initial? Code Code System Body Mass Index 32.26 kg/m2 03/27/2025 08:53 Initial 12205 -5 LOINC Systolic Blood Pressure 131 mm[Hg] 03/27/2025 08:52 Initial 8480- 6 LOINC Diastolic Blood Pressure 67 mm[Hg] 03/27/2025 08:52 Initial 8462- 4 LOINC Body Surface Area 2.10 m2 03/27/2025 08:53 Initial 3140- 1 LOINC Height 170.180 0 cm 67.00 in 03/27/2025 08:53 Initial 8302- 2 LOINC O2 Saturation 95 % 2024 08:52 Initial 09679 -5 LOINC Pulse 77.0 /min 03/27/2025 08:52 Initial 8867- 4 LOINC Respiration 22 /min 03/27/20 08:52 Initial 9279- 1 LOINC Temperature 36.7 Freda 98.1 F 03/27/20 08:52 Initial 8310- 5 LOINC Weight 93.44 kg 206.00 lbs 03/27/2025 08:53 Initial 89908 -7 LOINC Hospital Discharge Instructions Should you have any questions prior to discharge, please contact a member of your healthcare team. If you have left the hospital and have any questions, please contact your primary care physician. Reason For Referral No Data Found Procedures Procedure Name Date Status Code Code Syste m INSERTION PICC W/RS&I 5 YR/> completed 10007 CPT Plan of Treatment Picc Line Removal 03/27/2025 PICC Line Placement 03/27/2025 US Venous Right UE ([id number]) 03/27/2025 Encounters Encounter Diagnosis Start Date Code Code Sys tem Myelodysplastic syndrome, unspecified 03/27/2025 SNOMED-CT Personal Care Team Section Performer Name Performer Role Active Date Inactive LAURIE Hidalgo PCP - Primary care physician Imaging Narrative Notes [facility] 03/27/2025 10:26 [facility] [address] [place] [address] ---------NAME--------- NUMBER SEX AGE ADMIT DISC. XRAY# F/C TYPE CHUYITA TONY [id number] F 60 03/27/25 54372 MB O/P DATE OF : 1965 M/R# [id number] #: [id number] [id number] LOCATION: TRANSCRIBED: 03/27/25 10:[place] [address] COMPLETED:03/27/25 9:54 [facility] [address] {REASON-US VENOUS RIGHT UE: MTELODYSPIASTIC SYNDROME PHYSICIAN: [...] or worsen, short-interval follow-up study is suggested. ACT LENS EDGE BUFFER Reviewed and Electronically Signed by: Ivan Acosta MD Signed Date: 03/27/25 10:23 03/27/25.1026.AJH.david PRADO via fax
--- OUTSIDE RECORDS SUMMARY | 2025-04-08 10:53 | XMS_ITS ---
Author Organization Unknown Address [address] [place] [address] [phone] Phone Care Team Providers Care Silk Presser Name Role Phone PIPPA BURCIAGAWade Attending Unavailable JOHAN SULLIVAN Primary Unavailable Immunization Immunization Date Status Additional Notes Code Code System Tdap 03/26/2021 Completed 115 CVX Results CBC W/ DIFF - Collect Date/T sarah: 01/23/2025 14:13 [facility] [id number] [address] [place] [address], [id number] LOINC: 24807-9 Test Value Unit Reference Range Code Code [...] H=36.0 L PLATELETS 32 10^3uL L=100 H=400 74629-0 LOINC L RDW 17.1 % L=11.7 H=15.5 H %GRAN L=40.0 H=70.0 52432-0 LOINC %LYMPH L=20.0 H=45.0 736-9 LOINC %MONO L=2.0 H=10.0 50972-7 LOINC %EOS L=0.0 H=6.0 713-8 LOINC %BASO L=0.0 H=3.0 706-2 LOINC #NEUT L=1.9 H=7.6 64796-0 LOINC CALLED TO: CHRISTOPH MÁRQUEZ AT: 1448 01/23/25 BY: SDK #LYMPH L=0.9 H=4.9 19820-2 LOINC #MONO L=0.1 H=0.9 97393-2 LOINC #EOS L=0.0 H=0.6 712-0 LOINC #BASO L=0.00 H=0.10 87811-6 LOINC #IM GRANS L=0.0 H=7.0 53833-2 LOINC %IM GRANS L=0.0 H=5.0 33034-5 LOINC %NRB L=0.0 H=0.2 82279-9 LOINC #NRB L=0.000 H=0.012 23704-1 LOINC MANUAL DIFF SEE BELOW A SEG [...] L=0 H=0 BLASTS 0 % L=0 H=0 95364-8 LOINC PANDA LYMPHS 10.00 % L=0.00 H=5.00 H SMUDGE CELLS 0 % L=0 H=0 NRBC 0.0 % L=0.0 H=0.0 PLTS DECREASED NEUT # 0.6 10^3uL L=1.9 H=7.6 LL LYMPH # 1.0 10^3uL L=0.9 H=4.9 MONO # 0.1 10^3uL L=0.1 H=0.9 EOS # 0.1 10^3uL L=0.0 H=0.6 712-0 LOINC BASO # 0.0 10^3uL L=0.0 H=0.1 76966-7 LOINC RBC MORPH NOT INDICATED COMPREHENSIVE METABOLIC PANE L - Collect Date/Time: 01/23/2025 14:13 [facility] [id number] [address] [place], [place], [phone] LOINC: 21046-3 Test Value Unit Reference Range Code Code [...] 2028-9 LOINC ANION GAP 9 L=10 H=20 30495-1 LOINC L OSMOLALITY 291 mOs/kG L=280 H=296 27886-1 LOINC BUN/CREAT 13.8 3097-3 LOINC CALCIUM 8.7 mg/dL L=8.3 H=10.5 93282-4 LOINC AST 20 U/L L=15 H=46 1920-8 LOINC ALT 12 U/L L=9 H=72 1742-6 LOINC ALKALINE PHOS 71 U/L L=38 H=126 6768-6 LOINC TOTAL BILI 0.2 mg/dL L=0.2 H=1.3 1975-2 LOINC ALBUMIN 3.7 G/dL L=3.5 H=5.0 1751-7 LOINC TOTAL PROTEIN 6.8 g/L L=6.3 H=8.2 2885-2 LOINC A/G RATIO 1.2 25705-9 LOINC AGE 59 37685-2 LOINC eGFR NON-AFR 79 ml/min eGFR AFR AMER 96 ml/min BB ABO AND RH TYPE - Collect Date/Time: 01/23/2025 14:13 [facility] [id number] [address] [place], [place], [phone] LOINC: 56608-9 Test Value Unit Reference Range Code Code System Flag ABO TYPE A 883-9 LOINC RH TYPE POSITIVE BB RETYPE ABO AND RH TYPE - Collect Date/Time: 01/23/2025 14:13 [facility] [id number] [address] [place], [place], [phone] LOINC: 96379-1 Test Value Unit Reference Range Code Code System Flag ABO TYPE A 883-9 LOINC RH TYPE POSITIVE Social History Type Status Start Date End Date Code Code Syst em Smoking History Unknown if ever smoked [address] Sex Female Hospital Discharge Instructions Should you have any questions prior to discharge, please contact a member of your healthcare team. If you have left the hospital and have any questions, please contact your primary care physician. Reason For Referral No Data Found Plan of Treatment Picc Line Removal 03/27/2025 PICC Line Placement 03/27/2025 US Venous Right UE (62458) 03/27/2025 Encounters Encounter Diagnosis Start Date Code Code Sys tem Myelodysplastic syndrome, unspecified 01/23/2025 SNOMED-CT Personal Care Team Section Performer Name Performer Role Active Date Inactive LAURIE Hidalgo PCP - Primary care physician
--- OUTSIDE RECORDS SUMMARY | 2025-04-08 10:53 | XMS_ITS ---
Author Organization Unknown Address [address] [place] [phone] Phone Care Team Providers Care Processing Mgr Name Role Phone JOHAN SULLIVAN Attending Unavailable Immunization Immunization Date Status Additional Notes Code Code System Tdap 03/26/2021 Completed 115 CVX Results US GALLBLADDER - Completed: 12/25/2024 12:00 LOINC: \TM00\\12PI\\DRAo\\BM09\ \MRHo\ [address] [address] ---------NAME--------- NUMBER SEX AGE ADMIT DISC. XRAY# F/C TYPE CHUYITA TONY [id number] F 59 12/25/24 12/25/24 22809 MBJ O/P DATE OF : 1965 M/R# [id number] PH#: [phone] RM \MRHx\ LOCATION: TRANSCRIBED: 12/25/24 13:39 US GALLBLADDER [address]25 COMPLETED:12/25/24 12:00 [facility] 60173 {REASON-US ABD: ABDOMINAL PAIN PHYSICIAN: JOHAN R [...] of gallstones or acute cholecystitis. Hepatic steatosis. [employer] \ITLo\ \UNDo\ \UNDx\ \ITLx\ Reviewed and Electronically Signed by: Ivan Acosta MD Signed Date: 12/25/24 13:39 Social History Type Status Start Date End Date Code Code Syst em Smoking History Unknown if ever smoked [id number] Sex Female Hospital Discharge Instructions Should you have any questions prior to discharge, please contact a member of your healthcare team. If you have left the hospital and have any questions, please contact your primary care physician. Reason For Referral No Data Found Plan of Treatment Picc Line Removal 03/27/2025 PICC Line Placement 03/27/2025 US Venous Right UE (25329) 03/27/2025 Encounters Encounter Diagnosis Start Date Code Code Sys tem Fatty (change of) liver, not elsewhere classified 04/2025 SNOMED-CT Personal Care Team Section Performer Name Performer Role Active Date Inactive LAURIE Hidalgo PCP - Primary care physician Imaging Narrative Notes [facility] 12/25/2024 13:42 [facility] [address] [place] [address] ---------NAME--------- NUMBER SEX AGE ADMIT DISC. XRAY# F/C TYPE CHUYITA TONY [id number] F 59 12/25/24 12/25/24 [address] [facility] O/P DATE OF : 1965 M/R# [id number] #: [id number] LOCATION: TRANSCRIBED: 12/25/24 13:39 US GALLBLADDER [address] COMPLETED:12/25/24 12:00 [facility] 88409 {REASON-US ABD: ABDOMINAL PAIN PHYSICIAN: JOHAN RADIOLOGY [...] of gallstones or acute cholecystitis. Hepatic steatosis. [employer] Reviewed and Electronically Signed by: Ivan Acosta MD Signed Date: 12/25/24 13:39
--- OUTSIDE RECORDS SUMMARY | 2025-04-08 10:53 | XMS_ITS | Clinical Summary ---
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 5 Active oxyCODONE immediate release (ROXICODONE) 5 MG immediate release tablet Take 1 tablet (5 mg total) by mouth every 6 (six) hours as needed. 5 Active pantoprazole EC (PROTONIX) 40 MG tablet Take 1 tablet (40 mg total) by mouth daily. 5 Active SENEXON-S 8.6-50 MG tablet Take 2 tablets by mouth 2 (two) times daily. 5 Active predniSONE (DELTASONE) 20 MG tablet Take 2 tablets (40 mg total) by mouth daily for 3 days. 6 tablet 5 03/15/20 25 Active Problems Problem Noted Date Diagnosed Date Thrombocytopenia 03/07/2025 Encounters Date Type Department Care Team Description 03/07/2025 9:51 PM CDT - 03/12/2025 5:58 PM CDT Hospital Encounter [facility] Neurology [address] [place] [address] Hansel Strickland MD Sheikh, Omer S, MD Wali, MD Marcelle Discharge Disposition: Home or Self Care (Routine Discharge) 03/07/2025 Travel 01/26/2025 2:50 PM CDT - 01/26/2025 8:40 PM CDT Emergency [facility] [address] [facility] [place] [address] Bharat Young, Medical Problem Discharge Disposition: Home [...] from your doctor or pharmacy? Rarely 03/08/2025 [facility] Utilities Answer Date Recorded In the past 12 months has [facility] [employer] music, gas, oil, or water [employer] threatened to shut off services in your [...] week 03/08/2025 How often do you attend latter-day or hoahaoism serv ices? Never 03/08/2025 Do you belong to any clubs o r organizations such as latter-day groups, unions, fraternal or athletic groups, or [...] medical care, and heating? Patient declined 03/08/2025 [facility] - Occupational Stress Questionnaire Answer [...] in the past 12 m [facility], were you homeless or living in [...] SERUM Routine 03/07/2025 11:4 1 PM CDT [id number] ACT W/RFLX INHIBITOR Routine 03/07/2025 11:41 PM [...] of3 resultswithin the time period is included. Marcelle Rich MD NURSING TREATMENT ORDERABLES - B LOOD ADMIN Final Result * (ABNORMAL) POCT glucose (03/12/2025 4:04 PM CDT) Only the most recent of10 resultswithin the time period is included. GLUCOSE POC 170(H) 70 - 109 03/12/2025 4:08 PM CDT [facility] 03/12/2025 4:04 PM CDT Marcelle Rich MD POCT ORDERABLES - DEVICE Final R esult [facility] [address] [place] [address], [id number] * TRANSFUSE PLATELET PHERESIS (03/12/2025 1:41 PM CDT) Only the most recent of4 resultswithin the time period is included. Phani Sarmiento MD NURSING TREATMENT ORDERAB LES - BLOOD ADMIN Final Result * TYPE & SCREEN (03/12/2025 11:15 AM CDT) Only the most recent of3 resultswithin the time period is included. UNITS ORDERED 1 03/12/2025 11:01 AM CDT [facility] ABO/RH A POSITIVE 03/12/2025 1:38 PM CDT [facility] ANTIBODY SCREEN NEGATIVE 1:38 PM CDT [facility] SAMPLE EXPIRATION 03/15/2025,2359 03/12/2025 12:56 PM CDT [facility] BLOOD UNIT NUMBER [id number] 03/12/2025 1:38 PM CDT [facility] PRODUCT: PC LEUKOPOOR 03/12/2025 1:38 PM CDT [facility] UNIT DIVISION 00 03/12/2025 1:38 PM CDT [facility] BLOOD UNIT STATUS TRANSFUSED,FINAL 03/13/2025 6:44 AM CDT [facility] ISSUE DATE/TIME [id number] 025 6:44 AM CDT [facility] PRODUCT CODE [id number] 03/13/2025 6:44 AM CDT [facility] ABO/RH Unit A POS 03/13/2025 6:44 AM CDT [facility] ABO/RH UNIT ISBT CODE 6200 03/13/2025 6:44 AM CDT [facility] BLOOD UNIT EXPIRATION DATE [id number] 03/13/2025 6:44 AM CDT [facility] TRANSFUSION STATUS OK TO TRANSFUSE 03/12/2025 1:38 PM CDT [facility] CROSSMATCH COMPATIBLE-EXM 03/12/2025 1:38 PM CDT [facility] 03/12/2025 11:1 5 AM CDT us Marcelle Rich MD BLOOD BANK TEST ORDERABLES Final Result [facility] [address] [place] [address], [id number] * ORDER PLATELET PHERESIS, 1 Units (03/12/2025 6:46 AM CDT) Only the most recent of3 resultswithin the time period is included. UNITS ORDERED 1 03/12/2025 6:46 AM CDT [facility] BLOOD UNIT NUMBER [id number] 03/12/2025 9:57 AM CDT [facility] PRODUCT: PLT PHERESIS LEUKORED 7D BAG 2 03/12/2025 9:57 AM CDT [facility] UNIT DIVISION 00 03/12/2025 9:57 AM CDT [facility] BLOOD UNIT STATUS TRANSFUSED,FINAL 03/13/2025 6:44 AM CDT [facility] ISSUE DATE/TIME [id number] 025 6:44 AM CDT [facility] PRODUCT CODE [id number] 03/13/2025 6:44 AM CDT [facility] ABO/RH Unit AB POS 03/13/2025 6:44 AM CDT [facility] ABO/RH UNIT ISBT CODE 8400 03/13/2025 6:44 AM CDT [facility] BLOOD UNIT EXPIRATION DATE [id number] 03/13/2025 6:44 AM CDT [facility] TRANSFUSION STATUS OK TO TRANSFUSE 03/12/2025 9:57 AM CDT [facility] 03/12/2025 6:46 AM CDT Phani Sarmiento MD BLOOD BANK PRODUCT ORDERA BLES Final Result [facility] [address] [place] [address], [id number] * (ABNORMAL) CBC W/DIFF AUTOMATED (03/12/2025 3:50 AM CDT) Only the most recent of7 resultswithin the time period is included. WBC 0.54(L) 4.00 - 10.80 x10'3/uL 03/12/2025 4:53 AM CDT [facility] RBC 2.40(L) 4.10 - 5.40 x10'6/uL 03/12/2025 4:53 AM CDT [facility] HGB 7.1(L) 12.0 - 16.0 G/DL 03/12/2025 4:53 AM CDT [facility] HCT 21.7(L) 36.0 - 47.0 % 03/12/2025 4:53 AM CDT [facility] MCV 90.4 78.0 - 100.0 FL 03/12/2025 4:53 AM CDT [facility] MCH 29.6 27.0 - 31.0 PG 03/12/2025 4:53 AM CDT [facility] MCHC 32.7(L) 33.0 - 36.0 G/DL 03/12/2025 4:53 AM CDT [facility] RDW 17.0(H) 11.5 - 14.5 % 03/12/2025 4:53 AM CDT [facility] PLT 9(LL) 150 - 350 x10'3/uL 03/12/2025 6:54 AM CDT [facility] Comment: This result has been called to [id number] by [id number] on 03/12/2025 05:55:00, and has been read back. DIFFERENTIAL TYPE MANUAL DIFFERENTIAL 03/12/2025 6:57 AM CDT [facility] NRBC % 2.0 % 03/12/2025 6:57 AM CDT [facility] SEG NEUTROPHILS 29 % 6:57 AM CDT [facility] LYMPHOCYTES 63 % 03/12/2025 6:57 AM CDT [facility] MONOCYTES 2 % 03/12/2025 6:57 AM CDT [facility] EOSINOPHILS 2 % 03/12/2025 6:57 AM CDT [facility] BASOPHILS 0 % 03/12/2025 6:57 AM CDT [facility] BANDS 2 % 03/12/2025 6:57 AM CDT [facility] ABS. NEUTROPHILS 0.17(LL) 1.60 - 8.30 x10'3/uL 03/12/2025 6:57 AM CDT [facility] Comment: This patient has had a critical value result for this test called within the past 3 months. ABS. LYMPHOCYTES 0.35(L) 0.80 - 4.70 x10'3/uL 03/12/2025 6:57 AM CDT [facility] ABS. MONOCYTES 0.01 0.00 - 1.50 x10'3/uL 03/12/2025 6:57 AM CDT [facility] ABS. EOSINOPHILS 0.01 0.00 - 0.40 x10'3/uL 03/12/2025 6:57 AM CDT [facility] ABS. BASOPHILS 0.00 0.00 - 0.20 x10'3/uL 03/12/2025 6:57 AM CDT [facility] ABS. NUCLEATED RBC'S 0.01 0.00 - 0.01 x10'3/uL 03/12/2025 6:57 AM CDT [facility] RBC MORPHOLOGY SLIDE REVIEWED 2024 6:57 AM CDT [facility] ANISO SLIGHT 03/12/2025 6:57 AM CDT [facility] POIKLO SLIGHT 03/12/2025 6:57 AM CDT [facility] OVALOCYTES PRESENT 03/12/2025 6:57 AM CDT [facility] TEAR DROP PRESENT 03/12/2025 6:57 AM CDT [facility] JOVANNA PRESENT 03/12/2025 6:57 AM CDT [facility] PLT EST. DECREASED 03/12/2025 6:57 AM CDT [facility] 03/12/2025 3:50 AM CDT Marcelle Rich MD LABORATORY Final Result [facility] [address] [place] [address], [id number] * (ABNORMAL) BASIC METABOLIC PANEL (03/11/2025 9:42 AM CDT) Only the most recent of5 resultswithin the time period is included. SODIUM S/P/B 139 136 - 145 MMOL/L 03/[facility]20[facility] POT[facility] S/P/B 3.4(L) 3.5 - 5.1 MMOL/L 03/11/2025 10:19 AM [facility] CHLORIDE S/P/B 106 97 - 115 MMOL/L 03/11/2025 10:19 AM [facility] CO2 27.1 21.0 - 32.0 MMOL/L 03/11/2025 10:19 AM [facility] GLUCOSE 243(H) 74 - 106 MG/DL 03/11/2025 10:19 AM [facility] BUN 15 7 - 18 MG/DL 03/11/2025 10:19 AM [facility] CREATININE S/P/B 0.90 0.55 - 1.02 MG/DL 03/11/2025 10:19 AM [facility] CALCIUM S/P/B 8.6 8.5 - 10.1 MG/DL 03/11/2025 10:19 AM [facility] ANION GAP 5.9 2.0 - 10.0 MMOL/L 03/11/2025 10:19 AM [facility] OSMOLALITY (CALC) 297 MOSM/KG 025 10:19 AM [facility] Comment:REFERENCE RANGE NOT ESTABLISHED GFR ESTIMATE 74(L) >90 ML/MIN/1. 73 M2 03/11/2025 10:19 AM [facility] GFR NOTES GFR REFERENCE S: 03/11/2025 10:19 AM [facility] Comment: THE ESTIMATED GFR [...] <15 ml/min/1.73 m2 03/11/2025 9:42 AM CDT Marcelle Rich MD LABORATORY Final Result Performing Organization Address [facility] Co de Phone Number [facility] [address] [place] [address], [id number] * PHOSPHORUS, INORGANIC PHOSPHATE (03/10/2025 2:41 AM CDT) PHOSPHORUS 3.5 2.5 - 4.9 MG/DL 03/10/2025 3:34 AM CDT [facility] 03/10/2025 2:41 AM CDT Marcelle Rich MD LABORATORY Final Result Performing Organization Address [facility] Co de Phone Number [facility] [address] [place] [address], [id number] * MAGNESIUM (03/10/2025 2:41 AM CDT) MAGNESIUM 1.9 1.6 - 2.6 MG/DL 03/10/2025 3:34 AM CDT [facility] 03/10/2025 2:41 AM CDT Marcelle Rich MD LABORATORY Final Result Performing Organization Address [facility] Co de Phone Number [facility] [address] [place] [address], [phone] * (ABNORMAL) Blood gas, venous (03/09/2025 5:27 PM CDT) PH VENOUS 7.39 7.32 - 7.42 03/09/2025 5:37 PM CDT [facility] PCO2 VENOUS 47.7 41.0 - 51.0 MMHG 03/09/2025 5:37 PM CDT [facility] PO2 VENOUS 31.9 25.0 - 40.0 MM HG 03/09/2025 5:37 PM CDT [facility] BICARB VENOUS 28.0 24 - 28 MMOL/L 03/09/2025 5:37 PM CDT [facility] TOTAL CO2 VENOUS 29.5(H) 25.0 - 29.0 MMOL/L 03/09/2025 5:37 PM CDT [facility] BASE EXCESS VENOUS 3.1(H) 0 - 2 MMOL/L 03/09/2025 5:37 PM CDT [facility] O2 SAT VENOUS 56 <75 % 03/09/2025 5:37 PM CDT [facility] 03/09/2025 5:27 PM CDT Marcelle Rich MD LABORATORY Final Result [facility] [address] [place] [id number], [id number] * XR CHEST PORTABLE (03/08/2025 11:08 AM CDT) Anatomical Region Laterality Modality Chest Radiographic Aishwarya ging 03/08/2025 12:2 3 PM CDT Impressions 03/08/2025 12:24 PM CDT IMPRESSION: 1. Mild pulmonary vascular congestion. 2. No focal consolidation or pneumothorax. Ordered By: MARCELLE RICH Interpreted By: Bk Perez MD, 03/08/2025 12:23 PM Narrative 03/08/2025 12:24 PM CDT [facility] [address] [place], [place] [address] PROCEDURE: XR CHEST PORTABLE. 03/08/2025 11:06 AM. [...] Procedure Note Bk Perez MD - 03/08/[address] [address] PROCEDURE: XR CHEST PORTABLE. 03/08/2025 11:06 AM. [...] CDT) TEST NAME: LEUKEMIA LYMPHOMA EVAL TEST [id number] 03/08/2025 1:46 PM CDT [facility] SPECIMEN TYPE PERIPHERAL BLOOD EDTA, ROOM TEMP 03/08/2025 1:46 PM CDT [facility] TEST RESULT: Flexitest 1 03/12/2025 11:42 AM CDT [employer] BHAVESH-ALLAN VÁSQUEZ Comment: Flexitest 1 CLINICAL INFORMATION: NOT [...] staining intensity, forward scatter and side scatter. [place] A - Granulocytes Marker Percentage CD2 1 CD3 0 CD4 0 CD5 0 CD7 1 CD8 0 CD10 87 CD11c 96 CD13 91 CD19 0 CD19+CD5+ 0 CD20 0 CD23 1 CD33 3 CD34 0 CD38 2 CD45 100 CD56+CD3- 2 CD64 0 CD117 0 HLA_DR 2 [place] CD19+ 0 Lambda CD19+ 0 K/L Ratio NA [place] B - Lymphocytes Marker Percentage CD2 66 CD3 62 CD4 42 CD5 60 CD7 53 CD8 19 CD10 2 CD11c 6 CD13 0 CD19 22 CD19+CD5+ 0 CD20 22 CD23 14 CD33 0 CD34 0 CD38 46 CD45 100 CD56+CD3- 13 CD64 0 CD117 0 HLA_DR 25 [place] CD19+ 10 Lambda CD19+ 9 K/L Ratio 1.11 This test was developed and its analytical performance characteristics have been determined by [employer], [place]. It has not been cleared or approved by the U.S. Food and Drug Administration. This assay has been validated pursuant to the CLIA regulations and is used for clinical purposes. NUMBER OF MARKERS: 22 Test Performed by Alee Mancia, [facility], [address] [place] [address] Noe Hernandez M.D., Ph.D., Director of Laboratories , CLIA [id number] 03/08/2025 11:0 7 AM CDT us Almaz Hollins MD LABORATORY Final Result [facility] [address] [place] [address], [place] [phone] [facility] [address] [place] [address], [place] [phone] * FLOW CYTOMETRY, PERIPHERAL BLD (03/08/2025 11:07 AM CDT) FLOW CYTOMETRY TEST SENT TO [email or web address]. RESULTS WILL DISPLAY REF LAB TEST RESULT UNDER MISC TAB WHEN FINALIZED. 03/08/2025 12:12 PM CDT [facility] 03/08/2025 11:0 7 AM CDT us Almaz Hollins MD LABORATORY Final Result Performing Organization Address City/[facility] Co de Phone Number [facility] [address] [place] [address], [place] [phone] * MISCELLANEOUS LAB TEST (03/08/2025 11:07 AM CDT) TEST NAME: HLA TYPING FOR PLATELETS, ALLOIMMUNIZATION 03/08/2025 8:04 AM CDT [facility] TEST RESULT: SEE BLOOD BANK FOR TESTING RESULTS 03/11/2025 7:37 AM CDT [facility] 03/08/2025 11:0 7 AM CDT us Almaz Hollins MD LABORATORY Final Result Performing Organization Address City/[facility] Co de Phone Number [facility] [address] [place] [address], [place] [phone] * (ABNORMAL) RETICULOCYTE CT, AUTO (03/07/2025 11:43 PM CDT) [facility] % RETICULOCYTE COUNT 0.3(L) 0.6 - 2.3 % 03/08/2025 1:02 AM CDT [facility] ABSOLUTE RETICULOCYTE 0.01(L) 0.02 - 0.10 x10'6/uL 03/08/2025 1:02 AM CDT [facility] IMMATURE RETIC FRACTION 5.1 3.0 - 15.9 % 03/08/2025 1:02 AM CDT [facility] RETIC HGB 37.7(H) 28.0 - 35.0 PG 03/08/2025 1:02 AM CDT [facility] 03/07/2025 11:4 3 PM CDT Wesly Steve MD LABORATORY Final Result [facility] [address] [place] [address], [phone] * (ABNORMAL) EBV (RHONDA CAMP VIRUS) AB PANEL COMPREHENSIVE (INCL. EARLY AG D AB) (03/07/2025 11:41 PM CDT) [facility] EBV EARLY ANTIGEN-D AB IGG 71.00(H) <9.00 U/mL 03/12/2025 7:03 PM CDT [employer] DAIJA COX Comment: The potential exists for cross-reactivity with HIV (Human Immunodeficiency Virus) which could cause a false positive EBV-EA result. U/mL Interpretation <9.00 Negative 9.00 - 10.99 Equivocal >10.99 Positive EBV VCA IGM <36.00 <36.00 U/mL 03/12/2025 7:03 PM CDT [employer] DAIJA COX Comment: U/mL Interpretation <36.00 Negative 36.00 - 43.99 Equivocal >43.99 Positive RHONDA BAR NUCLEAR ANTIGEN IGG 69.90(H) <18.00 U/mL 03/12/2025 7:03 PM CDT [facility] Comment: U/mL Interpretation <18.00 Negative 18.00 - 21.99 Equivocal >21.99 Positive EBV VCA IGG 262.00(H) <18.00 U/mL 03/12/2025 7:03 PM CDT [employer] DAIJA COX Comment: U/mL Interpretation <18.00 Negative 18.00 - 21.99 Equivocal >21.99 Positive Test Performed by COINTERRAAlee, [facility], [address] [place] [address] Noe Hernandez M.D., Ph.D., Director of Laboratories , [facility] [id number] 03/07/2025 11:4 1 PM CDT Wesly Steve MD LABORATORY Final Result [facility] [id number], * [id number] ACT W/RFLX INHIBITOR (03/07/2025 11:41 PM CDT) Pathologist [facility] [id number] ACTIVITY 0.79 0.68 - 1.63 IU/mL 03/10/2025 3:29 PM CDT [facility] Comment: Activity levels below 0.10 IU/mL are seen in acquired and hereditary thrombotic thrombocytopenic purpura (TTP). Not all patients with TTP will exhibit low levels of [id number] activity with this assay, i.e., post bone marrow transplantation, drug-induced TTP, and mutations of IBRLOM18 at the CUB domain. Recent plasma exchange or immunosuppressive therapy may raise the observed activity levels. Mild decreases in LIAPFZ92 activity are seen in a wide variety of conditions including metastatic cancer, neonates, serious infections and cirrhosis of the liver. For more information on this test, go to http://education.Loco2/faq/YWB041 Test Performed by GavinoEsauy, [facility], [address] [place] [address] Noe Hernandez M.D., Ph.D., Director of Laboratories , [facility] [id number] 03/07/2025 11:4 1 PM CDT us Wesly Steve MD LABORATORY Final Result Performing Organization Address [facility] Co de Phone Number [employer] [address] , [place] [phone] * (ABNORMAL) PROCALCITONIN (PCT) (03/07/2025 11:41 PM CDT) PROCALCITONIN 2.85(H) 0.00 - 0.49 NG/ML 03/08/2025 1:14 PM CDT [facility] Comment: VALUES ABOVE 2.00 NG/ML ARE HIGHLY SUGGESTIVE OF SEPSIS OR OTHER SEVERE BACTERIAL INFECTION. 03/07/2025 11:4 1 PM CDT us Wesly Steve MD LABORATORY Final Result Performing Organization Address City/[facility] Co de Phone Number [facility] [address] [place] [address], [place] [phone] * (ABNORMAL) TSH W/REFLEX (03/07/2025 11:41 PM CDT) TSH 0.250(L) 0.358 - 3.740 uIU/ML 03/08/2025 12:47 AM CDT [facility] Comment: ASSAY PERFORMED BY CHEMILUMINESCENCE METHODOLOGY USING [employer]. PATIENT RESULTS DETERMINED BY ASSAYS USING DIFFERENT MANUFACTURERS FOR METHODS MAY NOT BE COMPARABLE. 03/07/2025 11:4 1 PM CDT us Wesly Steve MD LABORATORY Final Result Performing Organization Address City/[facility]/ZIP Co de Phone Number [facility] [address] [place] [address], [place] [phone] * CMV DNA QUANT REAL TIME PCR (03/07/2025 11:41 PM CDT) SPECIMEN SOURCE EDTA PLASMA 03/08/20 8:43 AM CDT [facility] CMV DNA QN PCR (BLD) Not Detected IU/mL 03/10/2025 6:53 PM CDT [facility] COX CMV DNA QUANT PCR (BLD) Not Detected log IU/mL 03/10/2025 6:53 PM CDT [employer] BHAVESHAxsome TherapeuticsADRIAN COX Comment: REFERENCE RANGE: NOT DETECTED For additional information, please refer to http://education.Loco2/faq/CMVandEBVPCR (This link is being provided for informational/ educational purposes only.) Test Performed by COINTERR[employer]lee, [facility], [address] [place] [address] Noe Hernandez M.D., Ph.D., Director of Laboratories , [facility] [id number] 03/07/2025 11:4 1 PM CDT us Wesly Steve MD LABORATORY Final Result Performing Organization Address City/[facility]/ZIP Co de Phone Number [employer] [address] , [facility] [address] [place] [address], [place] [phone] * (ABNORMAL) IRON SATURATION PANEL (FE,IBC,%SAT) (03/07/2025 11:41 PM CDT) IRON 53 50 - 170 MCG/DL 03/08/2025 12:47 AM CDT [facility] IRON BINDING CAPACITY 202(L) 250 - 450 MCG/DL 03/08/2025 12:47 AM CDT [facility] IRON SATURATION 26 % 12:47 AM CDT [facility] Comment:REFERENCE RANGE NOT ESTABLISHED 03/07/2025 11:4 1 PM CDT us Wesly Steve MD LABORATORY Final Result Performing Organization Address [facility]/ZIP Co de Phone Number [facility] [address] [place] [address], [place] [phone] * VITAMIN B-12 (03/07/2025 11:41 PM CDT) VITAMIN B12 S/P/B 511 193 - 986 PG/ML 03/08/2025 12:35 AM CDT [facility] 03/07/2025 11:4 1 PM CDT us Wesly Steve MD LABORATORY Final Result Performing Organization Address [facility] Co de Phone Number [facility] [address] [place] [address], [place] [phone] * SED RATE, ERYTHROCYTE (ESR,WSR) (03/07/2025 11:41 PM CDT) ESR 15 0 - 20 MM/HR 03/08/2025 12:03 AM CDT [facility] 03/07/2025 11:4 1 PM CDT us Wesly Steve MD LABORATORY Final Result Performing Organization Address City/[facility]/ZIP Co de Phone Number [facility] [address] [place] [address], [phone] * (ABNORMAL) COMPREHENSIVE METABOLIC PANEL (03/07/2025 11:41 PM CDT) SODIUM S/P/B 137 136 - 145 MMOL/L 03/08/2025 12:47 AM CDT [facility] POTASSIUM S/P/B 3.4(L) 3.5 - 5.1 MMOL/L 03/08/2025 12:47 AM CDT [facility] CHLORIDE S/P/B 107 97 - 115 MMOL/L 03/08/2025 12:47 AM CDT [facility] CO2 24.5 21.0 - 32.0 MMOL/L 03/08/2025 12:47 AM CDT [facility] GLUCOSE 261(H) 74 - 106 MG/DL 03/08/2025 12:47 AM CDT [facility] BUN 8 7 - 18 MG/DL 03/08/2025 12:47 AM CDT [facility] CREATININE S/P/B 0.80 0.55 - 1.02 MG/DL 03/08/2025 12:47 AM CDT [facility] CALCIUM S/P/B 8.0(L) 8.5 - 10.1 MG/DL 03/08/2025 12:47 AM CDT [facility] BILIRUBIN TOTAL S/P/B 0.4 0.2 - 1.0 MG/DL 03/08/2025 12:47 AM CDT [facility] ALKALINE PHOSPHATASE S/P/B 71 46 - 118 U/L 03/08/2025 12:47 AM CDT [facility] AST 43(H) 15 - 37 U/L 03/08/2025 12:47 AM CDT [facility] ALT 46 13 - 56 U/L 03/08/2025 12:47 AM CDT [facility] TOTAL PROTEIN S/P/B 6.5 6.4 - 8.2 G/DL 03/08/2025 12:47 AM CDT [facility] ALBUMIN S/P/B 2.9(L) 3.4 - 5.0 G/DL 03/08/2025 12:47 AM CDT [facility] ANION GAP 5.5 2.0 - 10.0 MMOL/L 03/08/2025 12:47 AM CDT [facility] OSMOLALITY (CALC) 291 MOSM/KG 025 12:47 AM CDT [facility] Comment:REFERENCE RANGE NOT ESTABLISHED GFR ESTIMATE 85(L) >90 ML/MIN/1. 73 M2 03/08/2025 12:47 AM CDT [facility] GFR NOTES GFR REFERENCE S: 03/08/2025 12:47 AM T [facility] Comment: THE ESTIMATED GFR [...] us Wesly Steve MD LABORATORY Final Result [facility] [address] [place] [address], [id number] * (ABNORMAL) LDH, LACTATE DEHYDROGENASE (03/07/2025 11:41 PM CDT) LDH 249(H) 84 - 246 UNITS/L 03/08/2025 12:47 AM CDT [facility] 03/07/2025 11:4 1 PM CDT us Wesly Steve MD LABORATORY Final Result [facility] [address] [place] [address], [id number] * (ABNORMAL) DIC PANEL (03/07/2025 11:41 PM CDT) PROTIME 12.1 9.4 - 12.5 SEC 03/08/2025 12:11 AM CDT [facility] INR 1.1 0.8 - 1.1 03/08/2025 12:11 AM CDT [facility] PTT 27.3 25.1 - 36.5 SEC 03/08/2025 12:12 AM CDT [facility] FIBRINOGEN 330 200 - 393 MG/DL 03/08/2025 12:10 AM CDT [facility] D-DIMER 932(H) 0 - 500 ng{FEU}/m L 03/08/2025 12:11 AM CDT [facility] EXCLUSION STATEMENT 03/08/2025 12:11 AM CDT [facility] Comment: D-Dimer values less [...] - 350 x10'3/uL 03/07/2025 11:58 PM CDT [facility] [facility] 03/07/2025 11:4 1 PM CDT us Wesly Steve MD LABORATORY Final Result [facility] [address] [place] [address], [place] [phone] [id number] * (ABNORMAL) C-REACTIVE PROTEIN (03/07/2025 11:41 PM CDT) C-REACTIVE PROTEIN 2.96(H) <0.80 mg/dL 03/08/2025 12:47 AM CDT [facility] 03/07/2025 11:4 1 PM CDT us Wesly Steve MD LABORATORY Final Result Performing Organization Address [facility]/ZIP Co de Phone Number [facility] [address] [place] [address], [place] [phone] [id number] * BLOOD SMEAR PERIPHERAL INTERP PHYS W/WRIT REPORT (03/07/2025 11:41 PM CDT) CBC PATHOLOGIST COMMENT SENT TO PATHOLOGIST FOR REVIEW 03/08/2025 3:04 PM CDT [facility] 03/07/2025 11:4 1 PM CDT us Wesly Steve MD LABORATORY Final Result Performing Organization Address City/[facility]/ZIP Co de Phone Number [facility] [address] [place] [address], [place] [phone] * FOLIC ACID SERUM (03/07/2025 11:41 PM CDT) FOLATE 5.2 3.1 - 17.5 NG/ML 03/08/2025 12:35 AM CDT [facility] 03/07/2025 11:4 1 PM CDT us Wesly Steve MD LABORATORY Final Result [facility] [address] [place] [address], [id number] * (ABNORMAL) THYROXINE, FREE (FT4) (03/07/2025 11:41 PM CDT) FREE T4 1.55(H) 0.76 - 1.46 NG/DL 03/08/2025 1:05 AM CDT [facility] 03/07/2025 11:4 1 PM CDT us Wesly Steve MD LABORATORY Final Result [facility] [address] [place] [address], [id number] * Pathology (03/07/2025 12:00 AM CDT) PATHOLOGY [facility] Department of Laboratory Medicine [address] [place] [address] , extension [phone] Pathology Report Peripheral Smear Report Name: IVETH BOOGIE Specimen #: [id number] Age: 6 1965 (Age: 60) Location: [facility] Sex: F Procedure Date: 03/07/2025 Hospital #: [id number] Date Received: 03/08/2025 Date Reported: 03/08/2025 Provider: [...] 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 [id number] testing is pending at the time of [...] Interpretation and sign out were performed at [address], [address] [place] [address]. [facility] 03/07/2025 03/08/2025 7:5 2 AM CDT Comment:Peripheral blood Wesly Steve MD PATHOLOGY/CYTOLOGY ORDERABLES F inal Result [facility] [address] [place] [address], [id number] * PROTIME/INR, VENOUS (01/26/2025 3:25 PM CDT) PROTIME 11.9 9.4 - 12.5 SEC 01/26/2025 3:40 PM CDT [facility] INR 1.0 0.8 - 1.0 01/26/2025 3:40 PM CDT [facility] 01/26/2025 3:25 PM CDT Bharat Young DO LABORATORY Final Result [facility] [address] [place] [address], from Last 3 Months [place] [address] MEDICARE Advance Directives * Full Code (Latest Code Status on File) Date Activated Date Inactivated Comments 03/07/2025 10:49 PM 03/12/2025 8:04 PM 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
--- OUTSIDE RECORDS SUMMARY | 2025-04-08 10:53 | XMS_ITS ---
Author Organization Unknown Address [address] [place] [address] [phone] Phone Care Team Providers Care Bond Manager Name Role Phone PIPPA GREGORIONISHA Attending Unavailable JOHAN SULLIVAN Primary Unavailable Immunization Immunization Date Status Additional Notes Code Code System Tdap 03/26/2021 Completed 115 CVX Social History Type Status Start Date End Date Code Code Syst em Smoking History Unknown if ever smoked [id number] Sex Female Vital Signs Vital Sign Value Unit Frio Value Frio Unit Date/Time Recent/Initial? Code Code System Body Mass Index 34.97 kg/m2 02/04/2025 09:56 Initial 18522 -5 [facility] Systolic Blood Pressure 168 mm[Hg] 02/04/2025 09:53 Initial 8480- 6 LOINC Diastolic Blood Pressure 73 mm[Hg] 02/04/2025 09:53 Initial 8462- 4 INC Body Surface Area 2.24 m2 02/04/2025 09:56 Initial 3140- 1 LOINC Height 172.720 0 cm 68.00 in 02/04/2025 09:56 Initial 8302- 2 LOINC O2 Saturation 100 % 2024 09:53 Initial 77345 -5 [facility] Pulse 99.0 /min 02/04/2025 09:53 Initial 8867- 4 LOINC Respiration 22 /min 02/05/20 09:53 Initial 9279- 1 LOINC Temperature 36.3 Freda 97.3 F 02/05/20 09:53 Initial 8310- 5 LOINC Weight 104.33 kg 230.00 lbs 02/04/2025 09:56 Initial 35849 -7 [facility] Discharge Instructions Should you have any questions prior to discharge, please contact a member of your healthcare team. If you have left the hospital and have any questions, please contact your primary care physician. Reason For Referral No Data Found Plan of Treatment Picc Line Removal 03/27/2025 PICC Line Placement 03/27/2025 US Venous Right UE ([id number]) 03/27/2025 Encounters Encounter Diagnosis Start Date Code Code Sys tem Myelodysplastic syndrome, unspecified 02/04/2025 SNOMED-CT Personal Care Team Section Performer Name Performer Role Active Date Inactive LAURIE Hidalgo PCP - Primary care physician
[2025-04-08 11:09] LABS: Hematocrit 29.9 % (35.0-49.0); Hemoglobin 9.6 g/dL (12.0-15.0); Immature Platelet Fraction Pct 2.2 % (1.0-7.0); Mean Corpuscular HGB Conc 32.1 g/dL (32-36); Mean Corpuscular Hemoglobin 29.9 pg (27.0-31.0); Mean Corpuscular Volume 93.1 fL (78.0-102.0); Platelet Count Result 109 K/mm3 (150-420); Red Blood Count 3.21 M/mm3 (4.20-5.40); White Blood Count 2.0 K/mm3 (4.8-10.8)
[2025-04-08 11:18] LABS: Alanine Aminotransferase 12 U/L (6-35); Albumin Level 3.7 g/dL (3.5-5.1); Alkaline Phosphatase 75 U/L (38-126); Anion Gap 4 mmol/L (4-12); Aspartate Amino Transferase 26 U/L (14-36); Bilirubin,Total 0.7 mg/dL (0.2-1.3); Blood Urea Nitrogen 6 mg/dL (7-17); Calcium 8.5 mg/dL (8.4-10.2); Carbon Dioxide 29 mmol/L (22-30); Chloride 105 mmol/L (98-107); Estimated Glomerular Filt Rate > 60; Glucose 120 mg/dL (65-110); Osmolality Calculated 284 mOsm/kg (285-295); Potassium 3.5 mmol/L (3.4-5.0); Sodium 138 mmol/L (137-145); Total Protein 7.2 g/dL (6.3-8.2)
[2025-04-08 11:22] VITALS: BP 102/63; PULSE 84; RESP 16; TEMP 36.7; O2SAT 94
[2025-04-08 11:24] VITALS: BMI 30.8
[2025-04-08 11:27] LABS: Band Neutrophils Percent 0 % (0-6); Eosinophils Absolute Manual 2.00 K/mm3 (0.02-0.50); Lymphocytes Absolute Manual 1.08 K/mm3 (1.1-4.5); Lymphocytes Percent Manual 54 % (18-44); Monocytes Absolute Manual 0.12 K/mm3 (0.1-0.90); Monocytes Percent Manual 6 % (3-9); Neutrophils Absolute Manual 0.76 K/mm3 (1.3-6.7); Neutrophils Percent Manual 38 % (46-73); Total Cells Counted 100
[2025-04-08 11:28] LABS: Anisocytosis 2+; Schistocytes None Seen
[2025-04-08 11:29] LABS: Hypochromasia 2+; Poikilocytosis 1+
== END 2025-04-08 10:45 | disposition home or self-care (01) ==
LOC: CHSTREATRM 10:49
PROVIDERS: PCP Family Medicine; Visit Provider Internal Medicine Hematology
DX: D46.21 Refractory anemia with excess of blasts 1 (principal)
CPT/HCPCS: 36415; 36591; 80053; 85025; 85055

== ENCOUNTER 2025-04-11 11:28 | Outpatient (RCR) | payer MEDICARE, SELFPAY ==
[2025-04-11 11:52] LABS: Hematocrit 30.9 % (35.0-49.0); Hemoglobin 9.9 g/dL (12.0-15.0); Mean Corpuscular HGB Conc 32.0 g/dL (32-36); Mean Corpuscular Hemoglobin 29.6 pg (27.0-31.0); Mean Corpuscular Volume 92.2 fL (78.0-102.0); Platelet Count Result 135 K/mm3 (150-420); Red Blood Count 3.35 M/mm3 (4.20-5.40); White Blood Count 2.1 K/mm3 (4.8-10.8)
[2025-04-11 12:06] LABS: Alanine Aminotransferase 11 U/L (6-35); Albumin Level 3.6 g/dL (3.5-5.1); Alkaline Phosphatase 73 U/L (38-126); Anion Gap 5 mmol/L (4-12); Aspartate Amino Transferase 25 U/L (14-36); Bilirubin,Total 0.6 mg/dL (0.2-1.3); Blood Urea Nitrogen 8 mg/dL (7-17); Calcium 8.5 mg/dL (8.4-10.2); Carbon Dioxide 29 mmol/L (22-30); Chloride 105 mmol/L (98-107); Estimated Glomerular Filt Rate > 60; Glucose 98 mg/dL (65-110); Osmolality Calculated 286 mOsm/kg (285-295); Potassium 3.5 mmol/L (3.4-5.0); Sodium 139 mmol/L (137-145); Total Protein 6.9 g/dL (6.3-8.2)
[2025-04-11 12:11] LABS: Band Neutrophils Percent 0 % (0-6); Lymphocytes Absolute Manual 1.02 K/mm3 (1.1-4.5); Lymphocytes Percent Manual 49 % (18-44); Neutrophils Absolute Manual 0.84 K/mm3 (1.3-6.7); Neutrophils Percent Manual 40 % (46-73); Total Cells Counted 100
[2025-04-11 12:12] LABS: Basophils Absolute Manual 0.02 K/mm3 (0-0.1); Basophils Percent Manual 1 % (0-1); Eosinophils Absolute Manual 0.08 K/mm3 (0.02-0.50); Eosinophils Percent Manual 4 % (1-6); Monocytes Absolute Manual 0.12 K/mm3 (0.1-0.90); Monocytes Percent Manual 6 % (3-9)
--- NOTE | 2025-04-11 13:31 | PC.NURSE ---
Review blood/lab results. No needs at this time.
== END 2025-07-10 23:59 | disposition home or self-care (01) ==
LOC: CHSLAB 11:28
PROVIDERS: PCP Family Medicine; Visit Provider Internal Medicine Hematology
DX: D46.9 Myelodysplastic syndrome, unspecified (principal)
CPT/HCPCS: 36415; 80053; 85025; 86850; 86900; 86901

== ENCOUNTER 2025-04-15 11:23 | Outpatient (CLI) | payer MEDICARE, SELFPAY ==
[2025-04-15 11:46] LABS: Hematocrit 34.2 % (35.0-49.0); Hemoglobin 10.8 g/dL (12.0-15.0); Mean Corpuscular HGB Conc 31.6 g/dL (32-36); Mean Corpuscular Hemoglobin 29.3 pg (27.0-31.0); Mean Corpuscular Volume 92.7 fL (78.0-102.0); Platelet Count Result 188 K/mm3 (150-420); Red Blood Count 3.69 M/mm3 (4.20-5.40)
[2025-04-15 11:54] LABS: White Blood Count 1.7 K/mm3 (4.8-10.8)
--- NOTE | 2025-04-15 11:57 | PC.NURSE ---
Labs drawn in lab. Results reviewed. No new orders received.
[2025-04-15 12:12] LABS: Alanine Aminotransferase 11 U/L (6-35); Albumin Level 3.9 g/dL (3.5-5.1); Alkaline Phosphatase 70 U/L (38-126); Anion Gap 4 mmol/L (4-12); Aspartate Amino Transferase 26 U/L (14-36); Bilirubin,Total 0.7 mg/dL (0.2-1.3); Blood Urea Nitrogen 7 mg/dL (7-17); Calcium 8.7 mg/dL (8.4-10.2); Carbon Dioxide 29 mmol/L (22-30); Chloride 107 mmol/L (98-107); Estimated Glomerular Filt Rate > 60; Glucose 100 mg/dL (65-110); Osmolality Calculated 288 mOsm/kg (285-295); Potassium 3.7 mmol/L (3.4-5.0); Sodium 140 mmol/L (137-145); Total Protein 7.4 g/dL (6.3-8.2)
[2025-04-15 12:19] LABS: Anisocytosis 2+; Band Neutrophils Percent 0 % (0-6); Eosinophils Absolute Manual 0.05 K/mm3 (0.02-0.50); Eosinophils Percent Manual 3 % (1-6); Hypochromasia 2+; Lymphocytes Absolute Manual 0.88 K/mm3 (1.1-4.5); Lymphocytes Percent Manual 52 % (18-44); Monocytes Absolute Manual 0.05 K/mm3 (0.1-0.90); Monocytes Percent Manual 3 % (3-9); Neutrophils Absolute Manual 0.71 K/mm3 (1.3-6.7); Neutrophils Percent Manual 42 % (46-73); Poikilocytosis 2+; Schistocytes None Seen; Total Cells Counted 100
== END 2025-04-15 11:24 | disposition home or self-care (01) ==
LOC: CHSTREATRM 11:24
PROVIDERS: PCP Family Medicine; Visit Provider Internal Medicine Hematology
DX: D46.9 Myelodysplastic syndrome, unspecified (principal)
CPT/HCPCS: 36415; 80053; 85025

== ENCOUNTER 2025-04-22 11:10 | Outpatient (CLI) | payer MEDICARE, SELFPAY ==
[2025-04-22 11:10] VITALS: BP 135/83; PULSE 78; RESP 14; TEMP 36.4; O2SAT 97; BMI 32.0
[2025-04-22 11:30] LABS: Hematocrit 34.8 % (35.0-49.0); Hemoglobin 10.8 g/dL (12.0-15.0); Mean Corpuscular HGB Conc 31.0 g/dL (32-36); Mean Corpuscular Hemoglobin 28.7 pg (27.0-31.0); Mean Corpuscular Volume 92.6 fL (78.0-102.0); Platelet Count Result 250 K/mm3 (150-420); Red Blood Count 3.76 M/mm3 (4.20-5.40)
[2025-04-22 11:32] LABS: White Blood Count 1.5 K/mm3 (4.8-10.8)
[2025-04-22 11:39] LABS: Band Neutrophils Percent 0 % (0-6); Basophils Absolute Manual 0.01 K/mm3 (0-0.1); Basophils Percent Manual 1 % (0-1); Eosinophils Absolute Manual 0.01 K/mm3 (0.02-0.50); Eosinophils Percent Manual 1 % (1-6); Lymphocytes Absolute Manual 1.15 K/mm3 (1.1-4.5); Lymphocytes Percent Manual 77 % (18-44); Monocytes Absolute Manual 0.10 K/mm3 (0.1-0.90); Monocytes Percent Manual 7 % (3-9); Myelocytes Percent 2 %; Neutrophils Absolute Manual 0.18 K/mm3 (1.3-6.7); Neutrophils Percent Manual 12 % (46-73); Total Cells Counted 100
[2025-04-22] MEDS: SODIUM CHLORIDE 0.9% IVPB ×2 (11:43→12:11)
[2025-04-22] MEDS: ONDANSETRON IVPB (11:43)
[2025-04-22 12:07] LABS: Alanine Aminotransferase 17 U/L (6-35); Albumin Level 3.8 g/dL (3.5-5.1); Alkaline Phosphatase 67 U/L (38-126); Anion Gap 6 mmol/L (4-12); Aspartate Amino Transferase 24 U/L (14-36); Bilirubin,Total 0.5 mg/dL (0.2-1.3); Blood Urea Nitrogen 7 mg/dL (7-17); Calcium 8.5 mg/dL (8.4-10.2); Carbon Dioxide 30 mmol/L (22-30); Chloride 106 mmol/L (98-107); Estimated CRCL calculation 88 ml/min; Estimated Glomerular Filt Rate > 60; Glucose 119 mg/dL (65-110); Osmolality Calculated 293 mOsm/kg (285-295); Potassium 3.9 mmol/L (3.4-5.0); Sodium 142 mmol/L (137-145); Total Protein 6.8 g/dL (6.3-8.2)
[2025-04-22] MEDS: DECITABINE IVPB (12:11)
[2025-04-22] MEDS: HEPARIN SODIUM LOCK FLUSH 500 UNITS/5 ML SYRINGE IV PUSH (13:12)
[2025-04-22 13:18] VITALS: BP 130/74; PULSE 78; RESP 14; TEMP 36.5; O2SAT 97
--- NOTE | 2025-04-22 13:19 | PC.NURSE ---
Tolerated Decitabine treatment well. Refer to MAR and patient care notes.
== END 2025-04-22 11:11 | disposition home or self-care (01) ==
PROVIDERS: PCP Family Medicine; Visit Provider Internal Medicine Hematology
DX: D46.21 Refractory anemia with excess of blasts 1 (principal)
CPT/HCPCS: 36415; 80053; 85025; 96367; 96413; J0894; J2405; J7050

== ENCOUNTER 2025-04-23 10:05 | Outpatient (CLI) | payer MEDICARE, SELFPAY ==
[2025-04-23] MEDS: SODIUM CHLORIDE 0.9% IV 250 ML 10 ML IVPB (10:15)
[2025-04-23] MEDS: SODIUM CHLORIDE 0.9% IVPB ×2 (10:20→10:40)
[2025-04-23] MEDS: ONDANSETRON IVPB (10:20)
[2025-04-23 10:24] VITALS: BP 143/79; PULSE 68; RESP 16; TEMP 36.6; O2SAT 97; BMI 31.6
--- OUTSIDE RECORDS SUMMARY | 2025-04-23 10:34 | XMS_ITS | Encounter Summary ---
Author Organization [facility] Address [address] [place] [address] Care Team Providers Care Industrial Roofer Name Role Phone Reagan Fonseca MD Primary Care Provider [phone] Encounter Details Date Type Department Care Team (Late st Contact Info) Description 02/24/2019 Abstract [facility] CONVERSION [address] [place] [address] , Generic Conversion, Social History Tobacco Use [...] on filedocumented in this encounter Care Teams Industrial Roofer Relationship Specialty Start Date End Date Reagan Fonseca MD [address] [place] [address] PCP - General FAMILY PRACTICE 01/26/25 documented as of this encounter
--- OUTSIDE RECORDS SUMMARY | 2025-04-23 10:34 | XMS_ITS | Encounter Summary ---
Author Organization [facility] Address [address] [place] [address] Care Team Providers Care Instructor [employer] Name Role Phone Reagan Fonseca MD Primary Care Provider [phone] Encounter Details Date Type Department Care Team (Late st Contact Info) Description 12/03/2017 Abstract [facility] CONVERSION [address] [place] [address] , Generic Conversion, Social History Tobacco Use [...] on filedocumented in this encounter Care Teams Instructor [employer] Relationship Specialty Start Date End Date Reagan Fonseca MD [address] [place] [address] PCP - General FAMILY PRACTICE 01/26/25 documented as of this encounter
--- OUTSIDE RECORDS SUMMARY | 2025-04-23 10:34 | XMS_ITS | Clinical Summary ---
Author Organization [facility] Address [address] [place] [address] Care Team Providers Care Manager Consumer Insights Name Role Phone Reagan Fonseca MD Primary Care Provider [phone] Allergies Active Allergy Reactions Criticality Noted Date [...] mg total) by mouth daily. 5 Active ELIQUIS 5 MG tablet Take 1 tablet (5 mg total) by mouth once. 5 Active amLODIPine (NORVASC) 5 MG tablet Take 1 tablet (5 mg total) by mouth daily. 5 Active nitrofurantoin , macrocrystal-m onohydrate, (MACROBID) 100 MG capsule Take 1 capsule (100 mg total) by mouth 2 (two) times daily. 5 Active LORazepam (ATIVAN) 0.5 MG tablet Take 1 tablet (0.5 mg total) by mouth 2 (two) times daily as needed. Active SENEXON-S 8.6-50 MG tablet Take 2 tablets by mouth 2 (two) times daily. 5 025 Discontin ued(Error ) Active Problems Problem Noted Date Diagnosed Date Thrombocytopenia 03/07/2025 Encounters Date Type Department Care Team Description 04/16/2025 11:47 AM CDT - 04/16/2025 11:59 PM CDT Hospital Encounter [facility] Interventional Radiology [address] [place] [address] Lisette Das MD Discharge Disposition: Home or Self Care (Routine Discharge) 04/16/2025 11:30 AM CDT - 04/16/2025 11:46 AM CDT Hospital Encounter [facility] Laboratory [address] [place] [address] Gavino De La Rosa MD Discharge Disposition: Home or Self Care (Routine Discharge) 04/16/2025 Travel 04/12/2025 Telephone [facility] Interventional Radiology [address] [place] [address] Jose Becerra PA-C Appointment Request 03/07/2025 9:51 PM CDT - 03/12/2025 5:58 PM CDT Hospital Encounter [facility] Neurology [address] [place] [address] Hansel Strickland MD Sheikh, Omer S, MD Wali, Neehal, MD Discharge Disposition: Home or Self Care (Routine Discharge) 03/07/2025 Travel 01/26/2025 2:50 PM CDT - 01/26/2025 8:40 PM CDT Emergency [facility] [address] [place] [address] Bharat Young, Medical Problem Discharge Disposition: Home [...] from your doctor or pharmacy? Rarely 03/08/2025 [facility] Utilities Answer Date Recorded In the past 12 months has [facility] [employer], [employer], oil, or water mobile[employer] threatened to shut off services in your [...] How often do you attend episcopal or denominational serv ices? Never 03/08/2025 Do you belong [...] medical care, and heating? Patient declined 03/08/2025 [facility] - Occup[facility] Stress [...] any time in the past 12 m [facility], were you homeless or living in a halfway (including now)? No 03/08/2025 Comments No Sex and Gender Information Value Date Recorded Sex Assigned at Female 01/26/2025 3:17 PM CDT Legal Sex Female 4:11 PM CDT Gender Identity Not on file Sexual Orientation Not on file Last Filed Vital Signs Vital Sign Reading Time Taken Comments Blood Pressure 158/68 04/16/2025 2:35 PM CDT Pulse 68 04/16/2025 2:35 PM CDT Temperature 36.9 C (98.4 F) 03/12/2025 5:32 PM CDT Respiratory Rate 18 04/16/2025 2:35 PM CDT Oxygen Saturation 98% 04/16/2025 2:35 PM CDT Inhaled Oxygen Concentration - - Weight 90.7 kg (200 lb) 04/16/2025 12:31 PM CDT Height 172.7 cm (5' 8) 04/16/2025 12:31 PM CDT Body Mass Index 30.41 04/16/2025 12:31 PM CDT Plan of Treatment Health Maintenance [...] Vaccines (1 of 2) 2017 COVID-19 Vaccine ( - 2023-2 5 season) 2024 DTaP, Tdap [...] Procedure Name Priority Date/Time Associated Diagnosis Comments IR PORTACATH INSERT Routine 04/16/2025 1 :44 PM CDT Myelodysplastic syndrome ([facility]CC) CBC W/DIFF AUTOMATED Routine 04/16/2025 12:12 PM CDT Myelodysplastic syndrome ([facility]) PROTHROMBIN TIME, VENOUS Routine 04/16/2025 12:12 PM CDT Myelodysplastic syndrome ([facility]/HCC) POCT GLUCOSE - DOCKED DEVICE Routine 03/12/2025 [...] SERUM Routine 03/07/2025 11:4 1 PM CDT [id number] ACT W/RFLX INHIBITOR Routine 03/07/2025 11:41 PM [...] CDT from Last 3 Months Results * IR PORTACATH INSERT (04/16/2025 1:44 PM CDT) Anatomical Region Laterality Modality Chest Interventional R adiology, Radiographic Imaging 04/16/2025 4:40 PM CDT Impressions 04/16/2025 4:41 PM CDT IMPRESSION: Uneventful ultrasound and fluoroscopically guided placement of right internal jugular tunneled central venous catheter and implanted power injectable port. Port is ready for immediate use. Ordered By: LISETTE DAS Interpreted By: Gavino De La Rosa MD, 04/16/2025 4:40 PM Narrative 04/16/2025 4:41 PM CDT [address] [address] Procedure: Ultrasound and fluoroscopically guided placement of tunneled central venous catheter and implanted power injectable port INDICATION: Myelodysplastic syndrome TECHNIQUE: Following informed consent, the patient was placed supine on the angiographic exam table. [place] protocol was observed to verify correct patient, site, and procedure to be performed. Maximum sterile barrier precautions and sterile ultrasound technique were utilized throughout the procedure. Physician and staff utilized either approved alcohol-based rubs or surgical scrub technique with soap and water for hand sanitization. IV antibiotic prophylaxis was administered prior to the start of the procedure per department protocol. The right internal jugular vein was identified by ultrasound and noted to be patent and compressible. Following local anesthesia with buffered 1% lidocaine with epinephrine, a small dermatotomy was created. Ultrasound guidance and micropuncture technique were used to access the right internal jugular vein, and an image was stored PACS. Following placement of micropuncture cannula over 0.018 wire, the wire was exchanged for a 0.035 guidewire placed to the upper inferior vena cava. This was left in place while the subcutaneous port pocket was created. Local anesthesia along the right chest wall was achieved again using 1% lidocaine with epinephrine. A roughly 3 cm incision was created, and a subcutaneous port pocket was created using a combination of blunt and sharp dissection. The pocket was flushed with dilute cefazolin solution. A subcutaneous tunnel was then created from the port pocket to the venotomy site at the neck, and the catheter was pulled through the tunnel. A peel-away sheath was placed over the 0.035 guidewire. The catheter tip was placed through the peel-away sheath, which was subsequently removed. The catheter was positioned with its tip in the high right atrium, and the external portion of the catheter exiting the tunnel was cut to length. The catheter was then attached to the port, which was placed within the pocket. Marshall needle was used to access the port, confirming good blood return and easy flushing and aspiration. An image of the port and catheter assembly was saved to PACS. The subcutaneous pocket was then closed in layers using interrupted 3-0 Vicryl subcutaneous sutures and a running 4-0 Vicryl subcuticular stitch. The venotomy site at the neck was closed using Dermabond and Steri- Strips. Sterile dressings were applied. The patient appeared to tolerate the procedure well, and there were no immediate complications. Estimated blood loss less than 30 mL. Conscious sedation: Administered and monitored by a qualified interventional radiology nurse under supervision of the interventional radiologist. There was continuous monitoring of vital signs including pulse oximetry, end-tidal CO2, and EKG. Total intraservice or cdpw-yn-viac sedation time: 15 minutes. Fluoroscopy: 0.2 min, Ka.r 2 mGy Procedure Note Gavino De La Rosa MD - 04/16/2025 [place] [address] Procedure: Ultrasound and fluoroscopically guided placement of tunneledcentral venous catheter and implanted power injectable port INDICATION: Myelodysplastic syndrome TECHNIQUE: Following informed consent, the patient was placed supine onthe angiographic exam table. [place] protocol was observed to verifycorrect patient, site, and procedure to be performed. Maximum sterilebarrier precautions and sterile ultrasound technique were utilizedthroughout the procedure. Physician and staff utilized either approvedalcohol-based rubs or surgical scrub technique with soap and water forhand sanitization. IV antibiotic prophylaxis was administered prior tothe start of the procedure per department protocol. The right internal jugular vein was identified by ultrasound and noted gurinder patent and compressible. Following local anesthesia with buffered 1%lidocaine with epinephrine, a small dermatotomy was created. Ultrasoundguidance and micropuncture technique were used to access the rightinternal jugular vein, and an image was stored PACS. Following placementof micropuncture cannula over 0.018 wire, the wire was exchanged for a0.035 guidewire placed to the upper inferior vena cava. This was left inplace while the subcutaneous port pocket was created. Local anesthesiaalong the right chest wall was achieved again using 1% lidocaine withepinephrine. A roughly 3 cm incision was created, and a subcutaneous portpocket was created using a combination of blunt and sharp dissection. Thepocket was flushed with dilute cefazolin solution. A subcutaneous tunnelwas then created from the port pocket to the venotomy site at the neck,and the catheter was pulled through the tunnel. A peel-away sheath wasplaced over the 0.035 guidewire. The catheter tip was placed through thepeel-away sheath, which was subsequently removed. The catheter waspositioned with its tip in the high right atrium, and the externalportion of the catheter exiting the tunnel was cut to length. The catheterwas then attached to the port, which was placed within the pocket. Huberneedle was used to access the port, confirming good blood return and easyflushing and aspiration. An image of the port and catheter assembly wassaved to PACS. The subcutaneous pocket was then closed in layers usinginterrupted 3-0 Vicryl subcutaneous sutures and a running 4-0 Vicrylsubcuticular stitch. The venotomy site at the neck was closed usingDermabond and Steri-Strips. Sterile dressings were applied. The patientappeared to tolerate the procedure well, and there were no immediatecomplications. Estimated blood loss less than 30 mL. Conscious sedation: Administered and monitored by a qualifiedinterventional radiology nurse under supervision of the interventionalradiologist. There was continuous monitoring of vital signs includingpulse oximetry, end-tidal CO2, and EKG. Total intraservice or wqmt-ke-etzhekxxbcus time: 15 minutes. Fluoroscopy: 0.2 min, Ka.r 2 mGy IMPRESSION: Uneventful ultrasound and fluoroscopically guided placement of rightinternal jugular tunneled central venous catheter and implanted powerinjectable port. Port is ready for immediate use. Ordered By: LISETTE DAS Interpreted By: Gavino De La Rosa MD, 04/16/2025 4:40 PM us Lisette Das MD INTERVENTIONAL RADIOL OGY Final Result * PROTIME/INR, VENOUS (PROTHROMBIN TIME) (04/16/2025 12:12 PM CDT) Only the most recent of2 resultswithin the time period is included. PROTIME 12.3 9.4 - 12.5 SEC 04/16/2025 12:38 PM CDT [facility] INR 1.1 0.8 - 1.1 04/16/2025 12:38 PM CDT [facility] 04/16/2025 12:1 2 PM CDT Gavino De La Rosa MD LABORATORY Final Result [facility] [address] [place] [address], [place] [phone] * (ABNORMAL) CBC W/DIFF AUTOMATED (04/16/2025 12:12 PM CDT) Only the most recent of8 resultswithin the time period is included. WBC 1.77(L) 4.00 - 10.80 x10'3/uL 04/16/2025 12:28 PM CDT [facility] RBC 3.81(L) 4.10 - 5.40 x10'6/uL 04/16/2025 12:28 PM CDT [facility] HGB 11.3(L) 12.0 - 16.0 G/DL 04/16/2025 12:28 PM CDT [facility] HCT 35.2(L) 36.0 - 47.0 % 04/16/2025 12:28 PM CDT [facility] MCV 92.4 78.0 - 100.0 FL 04/16/2025 12:28 PM CDT [facility] MCH 29.7 27.0 - 31.0 PG 04/16/2025 12:28 PM CDT [facility] MCHC 32.1(L) 33.0 - 36.0 G/DL 04/16/2025 12:28 PM CDT [facility] RDW 19.1(H) 11.5 - 14.5 % 04/16/2025 12:28 PM CDT [facility] PLT 216 150 - 350 x10'3/uL 04/16/2025 1:05 PM CDT [facility] MPV 10.4 7.4 - 10.4 FL 04/16/2025 1:05 PM CDT [facility] DIFFERENTIAL TYPE MANUAL DIFFERENTIAL 04/16/2025 1:10 PM CDT [facility] NRBC % 0.0 % 04/16/2025 1:10 PM CDT [facility] SEG NEUTROPHILS 33 % 1:10 PM CDT [facility] LYMPHOCYTES 57 % 04/16/2025 1:10 PM CDT [facility] MONOCYTES 3 % 04/16/2025 1:10 PM CDT [facility] EOSINOPHILS 3 % 04/16/2025 1:10 PM CDT [facility] BASOPHILS 3 % 04/16/2025 1:10 PM CDT [facility] BLASTS 1 % 04/16/2025 1:10 PM CDT [facility] ABS. NEUTROPHILS 0.58(L) 1.60 - 8.30 x10'3/uL 04/16/2025 1:10 PM CDT [facility] ABS. LYMPHOCYTES 1.01 0.80 - 4.70 x10'3/uL 04/16/2025 1:10 PM CDT [facility] ABS. MONOCYTES 0.05 0.00 - 1.50 x10'3/uL 04/16/2025 1:10 PM CDT [facility] ABS. EOSINOPHILS 0.05 0.00 - 0.40 x10'3/uL 04/16/2025 1:10 PM CDT [facility] ABS. BASOPHILS 0.05 0.00 - 0.20 x10'3/uL 04/16/2025 1:10 PM CDT [facility] ABS. BLASTS 0.02(H) 0.00 x10'3/uL 04/16/2025 1:10 PM CDT [facility] ABS. NUCLEATED RBC'S 0.00 0.00 - 0.01 x10'3/uL 04/16/2025 1:10 PM CDT [facility] RBC MORPHOLOGY SLIDE REVIEWED 2024 1:10 PM CDT [facility] ANISO MODERATE 04/16/2025 1:10 PM CDT [facility] POIKLO SLIGHT 04/16/2025 1:10 PM CDT [facility] OVALOCYTES PRESENT 04/16/2025 1:10 PM CDT [facility] TEAR DROP PRESENT 04/16/2025 1:10 PM CDT [facility] ACANTHOCYTES PRESENT 04/16/2025 1:10 PM CDT [facility] PLT EST. ADEQUATE 04/16/2025 1:10 PM CDT [facility] 04/16/2025 12:1 2 PM CDT Gavino De La Rosa MD LABORATORY Final Result [facility] [address] [place] [address], [id number] * TRANSFUSE RED BLOOD CELLS (03/12/2025 5:39 PM CDT) Only the most recent of3 resultswithin the time period is included. us Marcelle Rich MD NURSING TREATMENT ORDERABLES - B LOOD ADMIN Final Result * (ABNORMAL) POCT glucose (03/12/2025 4:04 PM CDT) Only the most recent of10 resultswithin the time period is included. GLUCOSE POC 170(H) 70 - 109 03/12/2025 4:08 PM CDT [facility] 03/12/2025 4:04 PM CDT Marcelle Rich MD POCT ORDERABLES - DEVICE Final R esult [facility] [address] [place] [address], [id number] * TRANSFUSE PLATELET PHERESIS (03/12/2025 1:41 PM CDT) Only the most recent of4 resultswithin the time period is included. Phani Sarmiento MD NURSING TREATMENT ORDERAB LES - BLOOD ADMIN Final Result * TYPE & SCREEN (03/12/2025 11:15 AM CDT) Only the most recent of3 resultswithin the time period is included. UNITS ORDERED 1 03/12/2025 11:01 AM CDT [facility] ABO/RH A POSITIVE 03/12/2025 1:38 PM CDT [facility] ANTIBODY SCREEN NEGATIVE 1:38 PM CDT [facility] SAMPLE EXPIRATION 03/15/2025,2359 03/12/2025 12:56 PM CDT [facility] BLOOD UNIT NUMBER [id number] 03/12/2025 1:38 PM CDT [facility] PRODUCT: PC LEUKOPOOR 03/12/2025 1:38 PM CDT [facility] UNIT DIVISION 00 03/12/2025 1:38 PM CDT [facility] BLOOD UNIT STATUS TRANSFUSED,FINAL 03/13/2025 6:44 AM CDT [facility] ISSUE DATE/TIME [id number] 025 6:44 AM CDT [facility] PRODUCT CODE [id number] 03/13/2025 6:44 AM CDT [facility] ABO/RH Unit A POS 03/13/2025 6:44 AM CDT [facility] ABO/RH UNIT ISBT CODE [id number] 03/13/2025 6:44 AM CDT [facility] BLOOD UNIT EXPIRATION DATE [id number] 03/13/2025 6:44 AM CDT [facility] TRANSFUSION STATUS OK TO TRANSFUSE 03/12/2025 1:38 PM CDT [facility] CROSSMATCH COMPATIBLE-EXM 03/12/2025 1:38 PM CDT [facility] 03/12/2025 11:1 5 AM CDT Marcelle Rich MD BLOOD BANK TEST ORDERABLES Final Result [facility] [address] [place] [address], [id number] * ORDER PLATELET PHERESIS, 1 Units (03/12/2025 6:46 AM CDT) Only the most recent of3 resultswithin the time period is included. UNITS ORDERED 1 03/12/2025 6:46 AM CDT [facility] BLOOD UNIT NUMBER [id number] 03/12/2025 9:57 AM CDT [facility] PRODUCT: PLT PHERESIS LEUKORED 7D BAG 2 03/12/2025 9:57 AM CDT [facility] UNIT DIVISION 00 03/12/2025 9:57 AM CDT [facility] BLOOD UNIT STATUS TRANSFUSED,FINAL 03/13/2025 6:44 AM CDT [facility] ISSUE DATE/TIME [id number] 025 6:44 AM CDT [facility] PRODUCT CODE [id number] 03/13/2025 6:44 AM CDT [facility] ABO/RH Unit AB POS 03/13/2025 6:44 AM CDT [facility] ABO/RH UNIT ISBT CODE 8400 03/13/2025 6:44 AM CDT [facility] BLOOD UNIT EXPIRATION DATE [id number] 03/13/2025 6:44 AM CDT [facility] TRANSFUSION STATUS OK TO TRANSFUSE 03/12/2025 9:57 AM CDT [facility] 03/12/2025 6:46 AM CDT Phani aSrmiento MD BLOOD BANK PRODUCT ORDERA BLES Final Result [facility] [address] [place] [address], [id number] * (ABNORMAL) BASIC METABOLIC PANEL (03/11/2025 9:42 AM CDT) Only the most recent of5 resultswithin the time period is included. SODIUM S/P/B 139 136 - 145 MMOL/L 03/11/2025 10:19 AM CDT [facility] POTASSIUM S/P/B 3.4(L) 3.5 - 5.1 MMOL/L 03/11/2025 10:19 AM CDT [facility] CHLORIDE S/P/B 106 97 - 115 MMOL/L 03/11/2025 10:19 AM CDT [facility] CO2 27.1 21.0 - 32.0 MMOL/L 03/11/2025 10:19 AM CDT [facility] GLUCOSE 243(H) 74 - 106 MG/DL 03/11/2025 10:19 AM CDT [facility] BUN 15 7 - 18 MG/DL 03/11/2025 10:19 AM CDT [facility] CREATININE S/P/B 0.90 0.55 - 1.02 MG/DL 03/11/2025 10:19 AM CDT [facility] CALCIUM S/P/B 8.6 8.5 - 10.1 MG/DL 03/11/2025 10:19 AM CDT [facility] ANION GAP 5.9 2.0 - 10.0 MMOL/L 03/11/2025 10:19 AM CDT [facility] OSMOLALITY (CALC) 297 MOSM/KG 025 10:19 AM CDT [facility] Comment:REFERENCE RANGE NOT ESTABLISHED GFR ESTIMATE 74(L) >90 ML/MIN/1. 73 M2 03/11/2025 10:19 AM CDT [facility] GFR NOTES GFR REFERENCE S: 03/11/2025 10:19 AM CDT [facility] Comment: THE ESTIMATED GFR IS [...] MD LABORATORY Final Result Performing Organization Address [facility]/ZIP Co de Phone Number [facility] [address] [place] [address], [phone] * PHOSPHORUS, INORGANIC PHOSPHATE (03/10/2025 2:41 AM CDT) PHOSPHORUS 3.5 2.5 - 4.9 MG/DL 03/10/2025 3:34 AM CDT [facility] 03/10/2025 2:41 AM CDT us Marcelle Rich MD LABORATORY Final Result Performing Organization Address [facility] Co de Phone Number [facility] [address] [place] [address], [phone] * MAGNESIUM (03/10/2025 2:41 AM CDT) Pathologist [facility] MAGNESIUM 1.9 1.6 - 2.6 MG/DL 03/10/2025 3:34 AM CDT [facility] 03/10/2025 2:41 AM CDT us Marcelle Rich MD LABORATORY Final Result Performing Organization Address [facility] Co de Phone Number [facility] [address] [place] [address], [place] [phone] * (ABNORMAL) Blood gas, venous (03/09/2025 5:27 PM CDT) Pathologist [facility] PH VENOUS 7.39 7.32 - 7.42 03/09/2025 5:37 PM CDT [facility] PCO2 VENOUS 47.7 41.0 - 51.0 MMHG 03/09/2025 5:37 PM CDT [facility] PO2 VENOUS 31.9 25.0 - 40.0 MM HG 03/09/2025 5:37 PM CDT [facility] BICARB VENOUS 28.0 24 - 28 MMOL/L 03/09/2025 5:37 PM CDT [facility] TOTAL CO2 VENOUS 29.5(H) 25.0 - 29.0 MMOL/L 03/09/2025 5:37 PM CDT [facility] BASE EXCESS VENOUS 3.1(H) 0 - 2 MMOL/L 03/09/2025 5:37 PM CDT [facility] O2 SAT VENOUS 56 <75 % 03/09/2025 5:37 PM CDT [facility] 03/09/2025 5:27 PM CDT us Marcelle Rich MD LABORATORY Final Result Performing Organization Address City/[facility]/ZIP Co de Phone Number [facility] [address] [place] [address], [place] [phone] * XR CHEST PORTABLE (03/08/2025 11:08 AM CDT) Anatomical Region Laterality Modality Chest Radiographic Aishwarya ging 03/08/2025 12:2 3 PM CDT Impressions 03/08/2025 12:24 PM CDT IMPRESSION: 1. Mild pulmonary vascular congestion. 2. No focal consolidation or pneumothorax. Ordered By: MARCELLE RICH Interpreted By: Bk Perez MD, 03/08/2025 12:23 PM Narrative 03/08/2025 12:24 PM CDT [facility] [address] [place], [place] [address] PROCEDURE: XR CHEST PORTABLE. 03/08/2025 11:06 AM. [...] Note Bk Perez MD - 03/08/2025 [facility] [address] [place], [place] [address] PROCEDURE: XR CHEST PORTABLE. 03/08/2025 11:06 AM. [...] CDT) TEST NAME: LEUKEMIA LYMPHOMA EVAL TEST [id number] 03/08/2025 1:46 PM CDT [facility] SPECIMEN TYPE PERIPHERAL BLOOD EDTA, ROOM TEMP 03/08/2025 1:46 PM CDT [facility] TEST RESULT: Flexitest 1 03/12/2025 11:42 AM CDT [employer] REGGIE VÁSQUEZ Comment: Flexitest 1 CLINICAL INFORMATION: [...] staining intensity, forward scatter and side scatter. [place] A - Granulocytes Marker Percentage CD2 1 CD3 0 CD4 0 CD5 0 CD7 1 CD8 0 CD10 87 CD11c 96 CD13 91 CD19 0 CD19+CD5+ 0 CD20 0 CD23 1 CD33 3 CD34 0 CD38 2 CD45 100 CD56+CD3- 2 CD64 0 CD117 0 HLA_DR 2 [place] CD19+ 0 Lambda CD19+ 0 K/L Ratio NA [place] B - Lymphocytes Marker Percentage CD2 66 CD3 62 CD4 42 CD5 60 CD7 53 CD8 19 CD10 2 CD11c 6 CD13 0 CD19 22 CD19+CD5+ 0 CD20 22 CD23 14 CD33 0 CD34 0 CD38 46 CD45 100 CD56+CD3- 13 CD64 0 CD117 0 HLA_DR 25 [place] CD19+ 10 Lambda CD19+ 9 K/L Ratio 1.11 This test was developed and its analytical performance characteristics have been determined by [employer] [place], [place]. It has not been cleared or approved by the U.S. Food and Drug Administration. This assay has been validated pursuant to the CLIA regulations and is used for clinical purposes. NUMBER OF MARKERS: 22 Test [facility], [facility], [address] [place], [place] Noe Hernandez M.D., Ph.D., Director of Laboratories , CLIA [id number] 03/08/2025 11:0 7 AM CDT us Almaz Hollins MD LABORATORY Final Result Performing Organization Address City/[facility]/ZIP Co de Phone Number [employer] [facility] [address] [place], [place] , [place] [phone] [facility] [address] [place] [address], [place] [phone] * FLOW CYTOMETRY, PERIPHERAL BLD (03/08/2025 11:07 AM CDT) [facility] FLOW CYTOMETRY TEST SENT TO [facility]. RESULTS WILL DISPLAY REF LAB TEST RESULT UNDER MISC TAB WHEN FINALIZED. 03/08/2025 12:12 PM CDT [facility] 03/08/2025 11:0 7 AM CDT us Almaz Hollins MD LABORATORY Final Result Performing Organization Address City/[facility]/ZIP Co de Phone Number [facility] [address] [place] [address], [place] [phone] * MISCELLANEOUS LAB TEST (03/08/2025 11:07 AM CDT) TEST NAME: HLA TYPING FOR PLATELETS, ALLOIMMUNIZATION 03/08/2025 8:04 AM CDT [facility] TEST RESULT: SEE BLOOD BANK FOR TESTING RESULTS 03/11/2025 7:37 AM CDT [facility] 03/08/2025 11:0 7 AM CDT Almaz Hollins MD LABORATORY Final Result Performing Organization Address [facility] de Phone Number [facility] [address] [place] [address], [id number] * (ABNORMAL) RETICULOCYTE CT, AUTO (03/07/2025 11:43 PM CDT) % RETICULOCYTE COUNT 0.3(L) 0.6 - 2.3 % 03/08/2025 1:02 AM CDT [facility] ABSOLUTE RETICULOCYTE 0.01(L) 0.02 - 0.10 x10'6/uL 03/08/2025 1:02 AM CDT [facility] IMMATURE RETIC FRACTION 5.1 3.0 - 15.9 % 03/08/2025 1:02 AM CDT [facility] RETIC HGB 37.7(H) 28.0 - 35.0 PG 03/08/2025 1:02 AM CDT [facility] 03/07/2025 11:4 3 PM CDT Wesly Steve MD LABORATORY Final Result Performing Organization Address [facility] Co de Phone Number [facility] [address] [place] [address], [id number] * (ABNORMAL) EBV (RHONDA CAMP VIRUS) AB PANEL COMPREHENSIVE (INCL. EARLY AG D AB) (03/07/2025 11:41 PM CDT) [facility] EBV EARLY ANTIGEN-D AB IGG 71.00(H) <9.00 U/mL 03/12/2025 7:03 PM CDT [facility] Comment: The potential exists for cross-reactivity with HIV (Human Immunodeficiency Virus) which could cause a false positive EBV-EA result. U/mL Interpretation <9.00 Negative 9.00 - 10.99 Equivocal >10.99 Positive EBV VCA IGM <36.00 <36.00 U/mL 03/12/2025 7:03 PM CDT [facility] Comment: U/mL Interpretation <36.00 Negative 36.00 - 43.99 Equivocal >43.99 Positive RHONDA BAR NUCLEAR ANTIGEN IGG 69.90(H) <18.00 U/mL 03/12/2025 7:03 PM CDT [facility] Comment: U/mL Interpretation <18.00 Negative 18.00 - 21.99 Equivocal >21.99 Positive EBV VCA IGG 262.00(H) <18.00 U/mL 03/12/2025 7:03 PM CDT [facility] Comment: U/mL Interpretation <18.00 Negative 18.00 - 21.99 Equivocal >21.99 Positive Test Performed by [facility], [facility], [address] [place] [address] Noe Hernandez M.D., Ph.D., Director of Laboratories , [place] [id number] 03/07/2025 11:4 1 PM CDT Wesly Steve MD LABORATORY Final Result Performing Organization Address [facility]/ZIP Co de Phone Number [facility] [address] [place], [place] , * [id number] ACT W/RFLX INHIBITOR (03/07/2025 11:41 PM CDT) [id number] ACTIVITY 0.79 0.68 - 1.63 IU/mL 03/10/2025 3:29 PM CDT [facility] Comment: Activity levels below 0.10 IU/mL are seen in acquired and hereditary thrombotic thrombocytopenic purpura (TTP). Not all patients with TTP will exhibit low levels of [id number] activity with this assay, i.e., post bone marrow transplantation, drug-induced TTP, and mutations of QGNYRN98 at the CUB domain. Recent plasma exchange or immunosuppressive therapy may raise the observed activity levels. Mild decreases in [id number] activity are seen in a wide variety of conditions including metastatic cancer, neonates, serious infections and cirrhosis of the liver. For more information on this test, go to http://education.One Hour Translation/faq/ZDP198 Test Performed by [facility], [facility], [address] [place] [address] Noe Hernandez M.D., Ph.D., Director of Laboratories , [facility] [id number] 03/07/2025 11:4 1 PM CDT Wesly Steve MD LABORATORY Final Result Performing Organization Address City/[facility]/ZIP Co de Phone Number [facility] [address] [place], [place] , * (ABNORMAL) PROCALCITONIN (PCT) (03/07/2025 11:41 PM CDT) PROCALCITONIN 2.85(H) 0.00 - 0.49 NG/ML 03/08/2025 1:14 PM CDT [facility] Comment: VALUES ABOVE 2.00 NG/ML ARE HIGHLY SUGGESTIVE OF SEPSIS OR OTHER SEVERE BACTERIAL INFECTION. 03/07/2025 11:4 1 PM CDT us Wesly Steve MD LABORATORY Final Result Performing Organization Address [facility] Co de Phone Number [facility] [address] [place] [address], [id number] * (ABNORMAL) TSH W/REFLEX (03/07/2025 11:41 PM CDT) TSH 0.250(L) 0.358 - 3.740 uIU/ML 03/08/2025 12:47 AM CDT [facility] Comment: ASSAY PERFORMED BY CHEMILUMINESCENCE METHODOLOGY USING [employer]. PATIENT RESULTS DETERMINED BY ASSAYS USING DIFFERENT MANUFACTURERS FOR METHODS MAY NOT BE COMPARABLE. 03/07/2025 11:4 1 PM CDT us Wesly Steve MD LABORATORY Final Result Performing Organization Address [facility] de Phone Number [facility] [address] [place] [address], [id number] * CMV DNA QUANT REAL TIME PCR (03/07/2025 11:41 PM CDT) Pathologist [facility] SPECIMEN SOURCE EDTA PLASMA 03/08/20 8:43 AM CDT [facility] CMV DNA QN PCR (BLD) Not Detected IU/mL 03/10/2025 6:53 PM CDT [facility]IJ[facility] COX CMV DNA QUANT PCR (BLD) Not Detected log IU/mL 03/10/2025 6:53 PM CDT [facility] Comment: REFERENCE RANGE: NOT DETECTED For additional information, please refer to http://education.Loom.Radiation Watch/faq/CMVandEBVPCR (This link is being provided for informational/ educational purposes only.) Test Performed by Alee Mancia, [facility], [address] [place] [address] Noe Hernandez M.D., Ph.D., Director of Laboratories , [facility] [id number] 03/07/2025 11:4 1 PM CDT us Wesly Steve MD LABORATORY Final Result Performing Organization Address [facility] Co de Phone Number [facility] [address] [address], [place] [phone] [facility] [address] [place] [address], [place] [phone] * (ABNORMAL) IRON SATURATION PANEL (FE,IBC,%SAT) (03/07/2025 11:41 PM CDT) IRON 53 50 - 170 MCG/DL 03/08/2025 12:47 AM CDT [facility] IRON BINDING CAPACITY 202(L) 250 - 450 MCG/DL 03/08/2025 12:47 AM CDT [facility] IRON SATURATION 26 % 12:47 AM CDT [facility] Comment:REFERENCE RANGE NOT ESTABLISHED 03/07/2025 11:4 1 PM CDT us Wesly Steve MD LABORATORY Final Result Performing Organization Address [facility] Co de Phone Number [facility] [address] [place] [address], [place] [phone] * VITAMIN B-12 (03/07/2025 11:41 PM CDT) VITAMIN B12 S/P/B 511 193 - 986 PG/ML 03/08/2025 12:35 AM CDT [facility] 03/07/2025 11:4 1 PM CDT us Wesly Steve MD LABORATORY Final Result Performing Organization Address City/[facility]/ZIP Co de Phone Number [facility] [address] [place] [address], [id number] * SED RATE, ERYTHROCYTE (ESR,WSR) (03/07/2025 11:41 PM CDT) ESR 15 0 - 20 MM/HR 03/08/2025 12:03 AM CDT [facility] 03/07/2025 11:4 1 PM CDT us Wesly Steve MD LABORATORY Final Result Performing Organization Address [facility] de Phone Number [facility] [address] [place] [address], [place] [phone] * (ABNORMAL) COMPREHENSIVE METABOLIC PANEL (03/07/2025 11:41 PM CDT) SODIUM S/P/B 137 136 - 145 MMOL/L 03/08/2025 12:47 AM CDT [facility] POTASSIUM S/P/B 3.4(L) 3.5 - 5.1 MMOL/L 03/08/2025 12:47 AM CDT [facility] CHLORIDE S/P/B 107 97 - 115 MMOL/L 03/08/2025 12:47 AM CDT [facility] CO2 24.5 21.0 - 32.0 MMOL/L 03/08/2025 12:47 AM CDT [facility] GLUCOSE 261(H) 74 - 106 MG/DL 03/08/2025 12:47 AM CDT [facility] BUN 8 7 - 18 MG/DL 03/08/2025 12:47 AM CDT [facility] CREATININE S/P/B 0.80 0.55 - 1.02 MG/DL 03/08/2025 12:47 AM T [facility] CALCIUM S/P/B 8.0(L) 8.5 - 10.1 MG/DL 03/08/2025 12:47 AM [facility] BILIRUBIN TOTAL S/P/B 0.4 0.2 - 1.0 MG/DL 03/08/2025 12:47 AM [facility] ALKALINE PHOSPHATASE S/P/B 71 46 - 118 U/L 03/08/2025 12:47 AM T [facility] AST 43(H) 15 - 37 U/L 03/08/2025 12:47 AM T [facility] ALT 46 13 - 56 U/L 03/08/2025 12:47 AM [facility] TOTAL PROTEIN S/P/B 6.5 6.4 - 8.2 G/DL 03/08/2025 12:47 AM [facility] ALBUMIN S/P/B 2.9(L) 3.4 - 5.0 G/DL 03/08/2025 12:47 AM [facility] ANION GAP 5.5 2.0 - 10.0 MMOL/L 03/08/2025 12:47 AM [facility] OSMOLALITY (CALC) 291 MOSM/KG 025 12:47 AM [facility] Comment:REFERENCE RANGE NOT ESTABLISHED GFR ESTIMATE 85(L) >90 ML/MIN/1. 73 M2 03/08/2025 12:47 AM [facility] GFR NOTES GFR REFERENCE S: 03/08/2025 12:47 AM [facility] Comment: THE ESTIMATED GFR IS [...] MD LABORATORY Final Result Performing Organization Address [facility] Co de Phone Number [facility] [address] [place] [address], [place] [phone] [id number] * (ABNORMAL) LDH, LACTATE DEHYDROGENASE (03/07/2025 11:41 PM CDT) LDH 249(H) 84 - 246 UNITS/L 03/08/2025 12:47 AM CDT [facility] 03/07/2025 11:4 1 PM CDT us Wesly Steve MD LABORATORY Final Result Performing Organization Address [facility] de Phone Number [facility] [address] [place] [address], [place] [phone] * (ABNORMAL) DIC PANEL (03/07/2025 11:41 PM CDT) PROTIME 12.1 9.4 - 12.5 SEC 03/08/2025 12:11 AM CDT [facility] INR 1.1 0.8 - 1.1 03/08/2025 12:11 AM CDT [facility] PTT 27.3 25.1 - 36.5 SEC 03/08/2025 12:12 AM CDT [facility] FIBRINOGEN 330 200 - 393 MG/DL 03/08/2025 12:10 AM CDT [facility] D-DIMER 932(H) 0 - 500 ng{FEU}/m L 03/08/2025 12:11 AM CDT [facility] EXCLUSION STATEMENT 03/08/2025 12:11 AM CDT [facility] Comment: D-Dimer values less than [...] - 350 x10'3/uL 03/07/2025 11:58 PM CDT [facility] 03/07/2025 11:4 1 PM CDT us Wesly Steve MD LABORATORY Final Result Performing Organization Address City/[facility]/ZIP Co de Phone Number [facility] [address] [place] [address], [id number] * (ABNORMAL) C-REACTIVE PROTEIN (03/07/2025 11:41 PM CDT) C-REACTIVE PROTEIN 2.96(H) <0.80 mg/dL 03/08/2025 12:47 AM CDT [facility] 03/07/2025 11:4 1 PM CDT us Wesly Steve MD LABORATORY Final Result [facility] [address] [place] [address], [id number] * BLOOD SMEAR PERIPHERAL INTERP PHYS W/WRIT REPORT (03/07/2025 11:41 PM CDT) CBC PATHOLOGIST COMMENT SENT TO PATHOLOGIST FOR REVIEW 03/08/2025 3:04 PM CDT [facility] 03/07/2025 11:4 1 PM CDT us Wesly Steve MD LABORATORY Final Result Performing Organization Address [facility] Co de Phone Number [facility] [address] [place] [address], [place] [phone] * FOLIC ACID SERUM (03/07/2025 11:41 PM CDT) FOLATE 5.2 3.1 - 17.5 NG/ML 03/08/2025 12:35 AM CDT [facility] 03/07/2025 11:4 1 PM CDT us Wesly Steve MD LABORATORY Final Result Performing Organization Address [facility] de Phone Number [facility] [address] [place] [address], [place] [phone] * (ABNORMAL) THYROXINE, FREE (FT4) (03/07/2025 11:41 PM CDT) FREE T4 1.55(H) 0.76 - 1.46 NG/DL 03/08/2025 1:05 AM CDT [facility] 03/07/2025 11:4 1 PM CDT us Wesly Steve MD LABORATORY Final Result Performing Organization Address [facility] Co de Phone Number [facility] [address] [place] [address], [place] [phone] * Pathology (03/07/2025 12:00 AM CDT) PATHOLOGY [facility] Department of Laboratory Medicine [address] [place] [address] , [id number] Pathology Report Peripheral Smear Report Name: IVETH BOOGIE Specimen #: [id number] Age: 6 1965 (Age: 60) Location: [facility] Sex: F Procedure Date: 03/07/2025 Hospital #: [id number] Date Received: 03/08/2025 Date Reported: 03/08/2025 Provider: [...] 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 [id number] testing is pending at the time of [...] Interpretation and sign out were performed at [address], [address] [place] [address] [facility] 03/07/2025 03/08/2025 7:5 2 AM CDT Comment:Peripheral blood Wesly Steve MD PATHOLOGY/CYTOLOGY ORDERABLES F inal Result [facility] [address] [place] [address], [place] [phone] [id number] from Last 3 Months Insurance MEDICAID MEDICARE Advance Directives * Full Code (Latest Code Status on File) Date Activated Date Inactivated Comments 03/07/2025 10:49 PM 03/12/2025 8:04 PM Care Teams Manager Consumer Insights Relationship Specialty Start Date End Date Reagan Fonseca MD [address] [place] [address] PCP - General FAMILY PRACTICE 01/26/25
[2025-04-23] MEDS: DECITABINE IVPB (10:40)
[2025-04-23] MEDS: HEPARIN SODIUM LOCK FLUSH 500 UNITS/5 ML SYRINGE IV PUSH (11:51)
[2025-04-23 11:53] VITALS: BP 137/64; PULSE 68; RESP 14; O2SAT 97
--- NOTE | 2025-04-23 12:36 | PC.NURSE ---
Tolerated decitabine infusion treatment well. see Mar and patient care notes.
== END 2025-04-23 10:06 | disposition home or self-care (01) ==
PROVIDERS: PCP Family Medicine; Visit Provider Internal Medicine Hematology
DX: D46.21 Refractory anemia with excess of blasts 1 (principal)
CPT/HCPCS: 96367; 96413; J0894; J2405; J7050

== ENCOUNTER 2025-04-24 09:51 | Outpatient (CLI) | payer MEDICARE, SELFPAY ==
[2025-04-24] MEDS: SODIUM CHLORIDE 0.9% IV PUSH (10:10)
[2025-04-24] MEDS: ONDANSETRON IV PUSH (10:10)
[2025-04-24 10:12] VITALS: BMI 31.6
[2025-04-24] MEDS: SODIUM CHLORIDE 0.9% IV 250 ML 10 ML IVPB (10:18)
[2025-04-24 10:21] VITALS: BP 143/67; PULSE 68; RESP 14; TEMP 36.5; O2SAT 97
[2025-04-24] MEDS: SODIUM CHLORIDE 0.9% IVPB (10:33)
[2025-04-24] MEDS: DECITABINE IVPB (10:33)
[2025-04-24] MEDS: HEPARIN SODIUM LOCK FLUSH 500 UNITS/5 ML SYRINGE IV PUSH (11:34)
[2025-04-24 11:46] VITALS: BP 139/70; PULSE 68; RESP 16; TEMP 36.5; O2SAT 97
--- NOTE | 2025-04-24 11:55 | PC.NURSE ---
Tolerated Decitabine infusion fair today. Having a little more nausea today reported. Dr. Mar office is calling [employer] into her pharmacy for home.
== END 2025-04-24 09:52 | disposition home or self-care (01) ==
PROVIDERS: PCP Family Medicine; Visit Provider Internal Medicine Hematology
DX: Z51.11 Encounter for antineoplastic chemotherapy (principal); D46.21 Refractory anemia with excess of blasts 1
CPT/HCPCS: 96367; 96413; J0894; J2405; J7050

== ENCOUNTER 2025-04-25 09:55 | Outpatient (CLI) | payer MEDICARE, SELFPAY ==
[2025-04-25 10:05] VITALS: BP 134/70; PULSE 68; RESP 14; TEMP 36.4; O2SAT 97; BMI 31.1
[2025-04-25] MEDS: SODIUM CHLORIDE 0.9% IV 250 ML 10 ML IVPB (10:10)
[2025-04-25] MEDS: ONDANSETRON IVPB (10:15)
[2025-04-25] MEDS: SODIUM CHLORIDE 0.9% IVPB ×2 (10:15→10:37)
[2025-04-25] MEDS: DECITABINE IVPB (10:37)
[2025-04-25] MEDS: HEPARIN SODIUM LOCK FLUSH 500 UNITS/5 ML SYRINGE IV PUSH (11:42)
[2025-04-25 11:55] VITALS: BP 138/74; PULSE 68; RESP 14; TEMP 36.6; O2SAT 96
--- NOTE | 2025-04-25 11:56 | PC.NURSE ---
Tolerated Decitabine infusion fairly well today. Having some nausea. Leaving here to go to pharmacy and pick up attendant anti-nausea medication that was ordered from Dr. Mar. Education on eating and usage of anti-nausea medication given.
== END 2025-04-25 09:56 | disposition home or self-care (01) ==
PROVIDERS: PCP Family Medicine; Visit Provider Internal Medicine Hematology
DX: Z51.11 Encounter for antineoplastic chemotherapy (principal); D46.21 Refractory anemia with excess of blasts 1
CPT/HCPCS: 96367; 96413; J0894; J2405; J7050

== ENCOUNTER 2025-04-26 10:14 | Outpatient (CLI) | payer MEDICARE, SELFPAY ==
[2025-04-26] MEDS: ONDANSETRON INJ 16 MG in SODIUM CHLORIDE 0.9% IV 50 ML 150 MG IVPB (10:31)
[2025-04-26] MEDS: SODIUM CHLORIDE 0.9% IV 250 ML 20 ML IVPB (10:38)
[2025-04-26 10:42] VITALS: BP 116/70; PULSE 68; RESP 14; TEMP 36.6; O2SAT 96; BMI 31.8
[2025-04-26] MEDS: DECITABINE IVPB (10:55)
[2025-04-26] MEDS: SODIUM CHLORIDE 0.9% IVPB (10:55)
[2025-04-26] MEDS: HEPARIN SODIUM LOCK FLUSH 500 UNITS/5 ML SYRINGE IV PUSH (12:14)
[2025-04-26 12:16] VITALS: BP 123/70; PULSE 68; RESP 14; O2SAT 97
--- NOTE | 2025-04-26 12:20 | PC.NURSE ---
Tolerated Decitabine infusion treatment well. SEE MAR/patient care notes.
== END 2025-04-26 10:15 | disposition home or self-care (01) ==
PROVIDERS: PCP Family Medicine; Visit Provider Internal Medicine Hematology
DX: Z51.11 Encounter for antineoplastic chemotherapy (principal); D46.21 Refractory anemia with excess of blasts 1
CPT/HCPCS: 96367; 96413; J0894; J2405; J7050

== ENCOUNTER 2025-05-02 10:22 | Outpatient (CLI) | payer MEDICARE, MEDICAID, SELFPAY ==
--- OUTSIDE RECORDS SUMMARY | 2025-05-02 10:38 | XMS_ITS | Encounter Summary ---
Author Organization [facility] Address [address] [place] [address] Care Team Providers Care Pin Drafter Name Role Phone Reagan Fonseca MD Primary Care Provider [phone] Encounter Details Date Type Department Care Team (Late st Contact Info) Description 02/24/2019 Abstract [facility] CONVERSION [address] [place] [address] , Generic Conversion, Social History Tobacco Use [...] on filedocumented in this encounter Care Teams Pin Drafter Relationship Specialty Start Date End Date Reagan Fonseca MD [address] [place] [address] PCP - General FAMILY PRACTICE 01/26/25 documented as of this encounter
--- OUTSIDE RECORDS SUMMARY | 2025-05-02 10:38 | XMS_ITS | Encounter Summary ---
Author Organization [facility] Address [address] [place] [address] Care Team Providers Care Senior Hris Analyst Name Role Phone Reagan Fonseca MD Primary Care Provider Encounter Details Date Type Department Care Team (Late st Contact Info) Description 12/03/2017 Abstract [facility] CONVERSION [address] [place] [address] , Generic Conversion, Social History Tobacco Use [...] filedocumented in this encounter Care Teams Senior Hris Analyst Relationship Specialty Start Date End Date Reagan Fonseca MD [address] [place] [address] PCP - General FAMILY PRACTICE 01/26/25 documented as of this encounter
--- OUTSIDE RECORDS SUMMARY | 2025-05-02 10:39 | XMS_ITS | Clinical Summary ---
Author Organization [facility] Address [address] [place] [address] Care Team Providers Care [employer] Coach Name Role Phone Reagan Fonseca MD Primary Care Provider [phone] Allergies Active Allergy Reactions Criticality Noted Date [...] - 04/16/2025 11:59 PM CDT Hospital Encounter [facility] Interventional Radiology [address] [place] [address] Lisette Das MD Discharge Disposition: Home or Self Care (Routine Discharge) 04/16/2025 11:30 AM CDT - 04/16/2025 11:46 AM CDT Hospital Encounter [facility] Laboratory [address] [place] [address] Gavino De La Rosa MD Discharge Disposition: Home or Self Care (Routine Discharge) 04/16/2025 Travel 04/12/[address] [facility] Interventional Radiology [address] [place] [address] Jose Becerra PA-C Appointment Request 03/07/2025 9:51 PM CDT - 03/12/2025 5:58 PM CDT Hospital Encounter [facility] Neurology [address] [place] [address] Hansel Strickland MD Sheikh, Omer S, MD Wali, Neehal, MD Discharge Disposition: Home or Self Care (Routine Discharge) 03/07/2025 Travel from Last 3 Months Social History [...] from your doctor or pharmacy? Rarely 03/08/[address] [facility] Utilities Answer Date Recorded In the past 12 months has e [place], gas, oil, or water [employer] threatened to shut off services in your [...] week 03/08/2025 How often do you attend cheondoism or christianity serv ices? Never 03/08/2025 Do you belong to any clubs o r organizations such as cheondoism groups, unions, fraternal or athletic groups, or [...] care, and heating? Patient declined 03/08/2025 [facility] [...] time in the past [address] [facility], were you homeless or living in a longterm (including now)? No 03/08/2025 Comments No Sex [...] 04/16/2025 1 :44 PM CDT Myelodysplastic syndrome (CMS/HCC HHS/HCC) CBC W/DIFF AUTOMATED Routine 04/16/2025 12:12 PM CDT Myelodysplastic syndrome (CMS/HCC HHS/HCC) PROTHROMBIN TIME, VENOUS Routine 04/16/2025 12:12 PM CDT Myelodysplastic syndrome (CMS/HCC HHS/HCC) POCT GLUCOSE - DOCKED DEVICE Routine [...] SERUM Routine 03/07/2025 11:4 1 PM CDT [id number] ACT W/RFLX INHIBITOR Routine 03/07/2025 11:41 PM [...] CDT PATHOLOGY Routine 03/07/2025 12:00 AM CDT from Last 3 Months Results * [...] 4:40 PM Narrative 04/16/2025 4:[address] PM [address] [address] Procedure: Ultrasound and fluoroscopically guided placement of tunneled central venous catheter and implanted power injectable port INDICATION: Myelodysplastic syndrome TECHNIQUE: Following informed consent, the patient was placed supine on the angiographic exam table. Dixon protocol was observed to verify correct patient, [...] end-tidal CO2, and EKG. Total intraservice or lhzb-jf-pzdf sedation time: 15 minutes. Fluoroscopy: 0.2 min, Ka.r 2 mGy Procedure Note Gavino De La Rosa MD - 04/16/[address] [address] Procedure: Ultrasound and fluoroscopically guided placement of tunneledcentral venous catheter and implanted power injectable port INDICATION: Myelodysplastic syndrome TECHNIQUE: Following informed consent, the patient was placed supine onthe angiographic exam table. Dixon protocol was observed to verifycorrect patient, site, [...] end-tidal CO2, and EKG. Total intraservice or tvnp-fj-ttihqeczuygr time: 15 minutes. Fluoroscopy: 0.2 min, Ka.r 2 mGy IMPRESSION: Uneventful ultrasound and fluoroscopically guided placement of rightinternal jugular tunneled central venous catheter and implanted powerinjectable port. Port is ready for immediate use. Ordered By: LISETTE DAS Interpreted By: Gavino De La Rosa MD, 04/16/2025 4:40 PM Lisette Das MD INTERVENTIONAL RADIOL OGY Final Result * PROTIME/INR, VENOUS (PROTHROMBIN TIME) (04/16/2025 12:12 PM CDT) PROTIME 12.3 9.4 - 12.5 SEC 04/16/2025 12:38 PM CDT [facility] INR 1.1 0.8 - 1.1 04/16/2025 12:38 PM CDT [facility] 04/16/2025 12:1 2 PM CDT Gavino De La Rosa MD LABORATORY Final Result [facility] [address] [place] [address], [place] [phone] * (ABNORMAL) CBC W/DIFF AUTOMATED (04/16/2025 12:12 PM CDT) Only the most recent of7 resultswithin the time period is included. WBC 1.77(L) 4.00 - 10.80 x10'3/uL 04/16/2025 12:28 PM CDT [facility] RBC 3.81(L) 4.10 - 5.40 x10'6/uL 04/16/2025 12:28 PM CDT [facility] HGB 11.3(L) 12.0 - 16.0 G/DL 04/16/2025 12:28 PM CDT [facility] HCT 35.2(L) 36.0 - 47.0 % 04/16/2025 12:28 PM CDT [facility] MCV 92.4 78.0 - 100.0 FL 04/16/2025 12:28 PM CDT [facility] MCH 29.7 27.0 - 31.0 PG 04/16/2025 12:28 PM CDT [facility] MCHC 32.1(L) 33.0 - 36.0 G/DL 04/16/2025 12:28 PM CDT [facility] RDW 19.1(H) 11.5 - 14.5 % 04/16/2025 12:28 PM CDT [facility] PLT 216 150 - 350 x10'3/uL 04/16/2025 1:05 PM CDT [facility] MPV 10.4 7.4 - 10.4 FL 04/16/2025 1:05 PM CDT [facility] DIFFERENTIAL TYPE MANUAL DIFFERENTIAL 04/16/2025 1:10 PM CDT [facility] NRBC % 0.0 % 04/16/2025 1:10 PM CDT [facility] SEG NEUTROPHILS 33 % 1:10 PM CDT [facility] LYMPHOCYTES 57 % 04/16/2025 1:10 PM CDT [facility] MONOCYTES 3 % 04/16/2025 1:10 PM CDT [facility] EOSINOPHILS 3 % 04/16/2025 1:10 PM CDT [facility] BASOPHILS 3 % 04/16/2025 1:10 PM CDT [facility] BLASTS 1 % 04/16/2025 1:10 PM CDT [facility] ABS. NEUTROPHILS 0.58(L) 1.60 - 8.30 x10'3/uL 04/16/2025 1:10 PM CDT [facility] ABS. LYMPHOCYTES 1.01 0.80 - 4.70 x10'3/uL 04/16/2025 1:10 PM CDT [facility] ABS. MONOCYTES 0.05 0.00 - 1.50 x10'3/uL 04/16/2025 1:10 PM CDT [facility] ABS. EOSINOPHILS 0.05 0.00 - 0.40 x10'3/uL 04/16/2025 1:10 PM CDT [facility] ABS. BASOPHILS 0.05 0.00 - 0.20 x10'3/uL 04/16/2025 1:10 PM CDT [facility] ABS. BLASTS 0.02(H) 0.00 x10'3/uL 04/16/2025 1:10 PM CDT [facility] ABS. NUCLEATED RBC'S 0.00 0.00 - 0.01 x10'3/uL 04/16/2025 1:10 PM CDT [facility] RBC MORPHOLOGY SLIDE REVIEWED 2024 1:10 PM CDT [facility] ANISO MODERATE 04/16/2025 1:10 PM CDT [facility] POIKLO SLIGHT 04/16/2025 1:10 PM CDT [facility] OVALOCYTES PRESENT 04/16/2025 1:10 PM CDT [facility] TEAR DROP PRESENT 04/16/2025 1:10 PM CDT [facility] ACANTHOCYTES PRESENT 04/16/2025 1:10 PM CDT [facility] PLT EST. ADEQUATE 04/16/2025 1:10 PM CDT [facility] 04/16/2025 12:1 2 PM CDT Gavino De La Rosa MD LABORATORY Final Result Performing Organization Address [facility] de Phone Number [facility] [address] [place] [address], [id number] * TRANSFUSE RED BLOOD CELLS (03/12/2025 5:39 PM CDT) Only the most recent of2 resultswithin the time period is included. Marcelle Rich MD NURSING TREATMENT ORDERABLES - B LOOD ADMIN Final Result * (ABNORMAL) POCT glucose (03/12/2025 4:04 PM CDT) Only the most recent of10 resultswithin the time period is included. GLUCOSE POC 170(H) 70 - 109 03/12/2025 4:08 PM CDT [facility] 03/12/2025 4:04 PM CDT Marcelle Rich MD POCT ORDERABLES - DEVICE Final R esult Performing Organization Address [facility] Co de Phone Number [facility] [address] [place] [address], [id number] * TRANSFUSE PLATELET PHERESIS (03/12/2025 1:41 PM CDT) Only the most recent of4 resultswithin the time period is included. Phani Sarmiento MD NURSING TREATMENT ORDERAB LES - BLOOD ADMIN Final Result * TYPE & SCREEN (03/12/2025 11:15 AM CDT) Only the most recent of2 resultswithin the time period is included. UNITS ORDERED 1 03/12/2025 11:01 AM CDT [facility] ABO/RH A POSITIVE 03/12/2025 1:38 PM CDT [facility] ANTIBODY SCREEN NEGATIVE 1:38 PM CDT [facility] SAMPLE EXPIRATION 03/15/2025,2359 03/12/2025 12:56 PM CDT [facility] BLOOD UNIT NUMBER [id number] 03/12/2025 1:38 PM CDT [facility] PRODUCT: PC LEUKOPOOR 03/12/2025 1:38 PM CDT [facility] UNIT DIVISION 00 03/12/2025 1:38 PM CDT [facility] BLOOD UNIT STATUS TRANSFUSED,FINAL 03/13/2025 6:44 AM CDT [facility] ISSUE DATE/TIME [id number] 025 6:44 AM CDT [facility] PRODUCT CODE [id number] 03/13/2025 6:44 AM CDT [facility] ABO/RH Unit A POS 03/13/2025 6:44 AM CDT [facility] ABO/RH UNIT ISBT CODE 6200 03/13/2025 6:44 AM CDT [facility] BLOOD UNIT EXPIRATION DATE [id number] 03/13/2025 6:44 AM CDT [facility] TRANSFUSION STATUS OK TO TRANSFUSE 03/12/2025 1:38 PM CDT [facility] CROSSMATCH COMPATIBLE-EXM 03/12/2025 1:38 PM CDT [facility] 03/12/2025 11:1 5 AM CDT us Marcelle Rich MD BLOOD BANK TEST ORDERABLES Final Result [facility] [address] [place] [address], [id number] * ORDER PLATELET PHERESIS, 1 Units (03/12/2025 6:46 AM CDT) Only the most recent of3 resultswithin the time period is included. UNITS ORDERED 1 03/12/2025 6:46 AM CDT [facility] BLOOD UNIT NUMBER [id number] 03/12/2025 9:57 AM CDT [facility] PRODUCT: PLT PHERESIS LEUKORED 7D BAG 2 03/12/2025 9:57 AM CDT [facility] UNIT DIVISION 00 03/12/2025 9:57 AM CDT [facility] BLOOD UNIT STATUS TRANSFUSED,FINAL 03/13/2025 6:44 AM CDT [facility] ISSUE DATE/TIME [id number] 025 6:44 AM CDT [facility] PRODUCT CODE [id number] 03/13/2025 6:44 AM CDT [facility] ABO/RH Unit AB POS 03/13/2025 6:44 AM CDT [facility] ABO/RH UNIT ISBT CODE 8400 03/13/2025 6:44 AM CDT [facility] BLOOD UNIT EXPIRATION DATE [id number] 03/13/2025 6:44 AM CDT [facility] TRANSFUSION STATUS OK TO TRANSFUSE 03/12/2025 9:57 AM CDT [facility] 03/12/2025 6:46 AM CDT Phani Sarmiento MD BLOOD BANK PRODUCT ORDERA BLES Final Result [facility] [address] [place] [address], [id number] * (ABNORMAL) BASIC METABOLIC PANEL (03/11/2025 9:42 AM CDT) Only the most recent of4 resultswithin the time period is included. [facility] SODIUM S/P/B 139 136 - 145 MMOL/L 03/11/2025 10:19 AM CDT [facility] POTASSIUM S/P/B 3.4(L) 3.5 - 5.1 MMOL/L 03/11/2025 10:19 AM [facility] CHLORIDE S/P/B 106 97 - 115 MMOL/L 03/11/2025 10:19 AM [facility] CO2 27.1 21.0 - 32.0 MMOL/L 03/11/2025 10:19 AM [facility] GLUCOSE 243(H) 74 - 106 MG/DL 03/11/2025 10:19 AM [facility] BUN 15 7 - 18 MG/DL 03/11/2025 10:19 AM [facility] CREATININE S/P/B 0.90 0.55 - 1.02 MG/DL 03/11/2025 10:19 AM [facility] CALCIUM S/P/B 8.6 8.5 - 10.1 MG/DL 03/11/2025 10:19 AM [facility] ANION GAP 5.9 2.0 - 10.0 MMOL/L 03/11/2025 10:19 AM [facility] OSMOLALITY (CALC) 297 MOSM/KG 025 10:19 AM [facility] Comment:REFERENCE RANGE NOT ESTABLISHED GFR ESTIMATE 74(L) >90 ML/MIN/1. 73 M2 03/11/2025 10:19 AM [facility] GFR NOTES GFR REFERENCE S: 03/11/2025 10:19 AM [facility] Comment: THE ESTIMATED GFR [...] Final Result Performing Organization Address [facility] Co de Phone Number [facility] [address] [place] [address], [id number] * PHOSPHORUS, INORGANIC PHOSPHATE (03/10/2025 2:41 AM CDT) PHOSPHORUS 3.5 2.5 - 4.9 MG/DL 03/10/2025 3:34 AM CDT [facility] 03/10/2025 2:41 AM CDT Marcelle Rich MD LABORATORY Final Result Performing Organization Address [facility] de Phone Number [facility] [address] [place] [address], [id number] * MAGNESIUM (03/10/2025 2:41 AM CDT) MAGNESIUM 1.9 1.6 - 2.6 MG/DL 03/10/2025 3:34 AM CDT [facility] 03/10/2025 2:41 AM CDT Marcelle Rich MD LABORATORY Final Result Performing Organization Address [facility] de Phone Number [facility] [address] [place] [address], [id number] * (ABNORMAL) Blood gas, venous (03/09/2025 5:27 PM CDT) PH VENOUS 7.39 7.32 - 7.42 03/09/2025 5:37 PM CDT [facility] PCO2 VENOUS 47.7 41.0 - 51.0 MMHG 03/09/2025 5:37 PM CDT [facility] PO2 VENOUS 31.9 25.0 - 40.0 MM HG 03/09/2025 5:37 PM CDT [facility] BICARB VENOUS 28.0 24 - 28 MMOL/L 03/09/2025 5:37 PM CDT [facility] TOTAL CO2 VENOUS 29.5(H) 25.0 - 29.0 MMOL/L 03/09/2025 5:37 PM CDT [facility] BASE EXCESS VENOUS 3.1(H) 0 - 2 MMOL/L 03/09/2025 5:37 PM CDT [facility] O2 SAT VENOUS 56 <75 % 03/09/2025 5:37 PM CDT [facility] 03/09/2025 5:27 PM CDT Marcelle Rich MD LABORATORY Final Result [facility] [address] [place] [address], [id number] * XR CHEST PORTABLE (03/08/2025 11:08 AM CDT) Anatomical Region Laterality Modality Chest Radiographic Aishwarya ging 03/08/2025 12:2 3 PM CDT Impressions 03/08/2025 12:24 PM CDT IMPRESSION: 1. Mild pulmonary vascular congestion. 2. No focal consolidation or pneumothorax. Ordered By: MARCELLE RICH Interpreted By: Bk Perez MD, 03/08/2025 12:23 PM Narrative 03/08/2025 12:24 PM CDT [facility] [address] [place], [place] [address] PROCEDURE: XR CHEST PORTABLE. 03/08/2025 11:06 AM. [...] Procedure Note Bk Perez MD - 03/08/2025 [place] [address] PROCEDURE: XR CHEST PORTABLE. 03/08/2025 11:06 AM. [...] CDT) TEST NAME: LEUKEMIA LYMPHOMA EVAL TEST [id number] 03/08/2025 1:46 PM CDT [facility] SPECIMEN TYPE PERIPHERAL BLOOD EDTA, ROOM TEMP 03/08/2025 1:46 PM CDT [facility] TEST RESULT: Flexitest 1 03/12/2025 11:42 AM CDT [employer] REGGIE THALIA Comment: Flexitest 1 CLINICAL INFORMATION: NOT PROVIDED [...] staining intensity, forward scatter and side scatter. [place] A - Granulocytes Marker Percentage CD2 1 CD3 0 CD4 0 CD5 0 CD7 1 CD8 0 CD10 87 CD11c 96 CD13 91 CD19 0 CD19+CD5+ 0 CD20 0 CD23 1 CD33 3 CD34 0 CD38 2 CD45 100 CD56+CD3- 2 CD64 0 CD117 0 HLA_DR 2 Pentress CD19+ 0 Lambda CD19+ 0 K/L Ratio NA [place] B - Lymphocytes Marker Percentage CD2 66 CD3 62 CD4 42 CD5 60 CD7 53 CD8 19 CD10 2 CD11c 6 CD13 0 CD19 22 CD19+CD5+ 0 CD20 22 CD23 14 CD33 0 CD34 0 CD38 46 CD45 100 CD56+CD3- 13 CD64 0 CD117 0 HLA_DR 25 Pentress CD19+ 10 Lambda CD19+ 9 K/L Ratio 1.11 This test was developed and its analytical performance characteristics have been determined by [facility]. It has not been cleared or approved by the U.S. Food and Drug Administration. This assay has been validated pursuant to the CLIA regulations and is used for clinical purposes. NUMBER OF MARKERS: 22 Test Performed by [facility], [facility], [address] [place] [address] Noe Hernandez M.D., Ph.D., Director of Laboratories , CLIA [id number] 03/08/2025 11:0 7 AM CDT Almaz Hollins MD LABORATORY Final Result [facility] [address] [place] [address], [place] [phone] [facility] [address] [place] [address], [place] [phone] * FLOW CYTOMETRY, PERIPHERAL BLD (03/08/2025 11:07 AM CDT) [facility] FLOW CYTOMETRY TEST SENT TO [facility]. RESULTS WILL DISPLAY REF LAB TEST RESULT UNDER MISC TAB WHEN FINALIZED. 03/08/2025 12:12 PM CDT [facility] 03/08/2025 11:0 7 AM CDT Almaz Hollins MD LABORATORY Final Result Performing Organization Address [facility] Co de Phone Number [facility] [address] [place] [address], [place] [phone] * MISCELLANEOUS LAB TEST (03/08/2025 11:07 AM CDT) [facility] TEST NAME: HLA TYPING FOR PLATELETS, ALLOIMMUNIZATION 03/08/2025 8:04 AM CDT [facility] TEST RESULT: SEE BLOOD BANK FOR TESTING RESULTS 03/11/2025 7:37 AM CDT [facility] 03/08/2025 11:0 7 AM CDT Almaz Hollins MD LABORATORY Final Result Performing Organization Address City/[facility] Co de Phone Number [facility] [address] [place] [address], [place] [phone] * (ABNORMAL) RETICULOCYTE CT, AUTO (03/07/2025 11:43 PM CDT) [facility] % RETICULOCYTE COUNT 0.3(L) 0.6 - 2.3 % 03/08/2025 1:02 AM CDT [facility] ABSOLUTE RETICULOCYTE 0.01(L) 0.02 - 0.10 x10'6/uL 03/08/2025 1:02 AM CDT [facility] IMMATURE RETIC FRACTION 5.1 3.0 - 15.9 % 03/08/2025 1:02 AM CDT [facility] RETIC HGB 37.7(H) 28.0 - 35.0 PG 03/08/2025 1:02 AM CDT [facility] 03/07/2025 11:4 3 PM CDT Wesly Steve MD LABORATORY Final Result [facility] [address] [place] [address], [id number] * (ABNORMAL) EBV (RHONDA CAMP VIRUS) AB PANEL COMPREHENSIVE (INCL. EARLY AG D AB) (03/07/2025 11:41 PM CDT) [facility] EBV EARLY ANTIGEN-D AB IGG 71.00(H) <9.00 U/mL 03/12/2025 7:03 PM CDT [employer] DAIJA COX Comment: The potential exists for cross-reactivity with HIV (Human Immunodeficiency Virus) which could cause a false positive EBV-EA result. U/mL Interpretation <9.00 Negative 9.00 - 10.99 Equivocal >10.99 Positive EBV VCA IGM <36.00 <36.00 U/mL 03/12/2025 7:03 PM CDT [employer] DAIJA COX Comment: U/mL Interpretation <36.00 Negative 36.00 - 43.99 Equivocal >43.99 Positive RHONDA BAR NUCLEAR ANTIGEN IGG 69.90(H) <18.00 U/mL 03/12/2025 7:03 PM CDT [employer] DAIJA COX Comment: U/mL Interpretation <18.00 Negative 18.00 - 21.99 Equivocal >21.99 Positive EBV VCA IGG 262.00(H) <18.00 U/mL 03/12/2025 7:03 PM CDT [employer] DAIJA COX Comment: U/mL Interpretation <18.00 Negative 18.00 - 21.99 Equivocal >21.99 Positive Test Performed by Alee Mancia, [facility], [address] [place] [address] Noe Hernandez M.D., Ph.D., Director of Laboratories , [facility] [id number] 03/07/2025 11:4 1 PM CDT Wesly Steve MD LABORATORY Final Result [employer] [address] , * [id number] ACT W/RFLX INHIBITOR (03/07/2025 11:41 PM CDT) [id number] ACTIVITY 0.79 0.68 - 1.63 IU/mL 03/10/2025 3:29 PM CDT [employer] OSPINAADRIAN COX Comment: Activity levels below 0.10 IU/mL are seen in acquired and hereditary thrombotic thrombocytopenic purpura (TTP). Not all patients with TTP will exhibit low levels of TCPVYG00 activity with this assay, i.e., post bone marrow transplantation, drug-induced TTP, and mutations of NYVLHL96 at the CUB domain. Recent plasma exchange or immunosuppressive therapy may raise the observed activity levels. Mild decreases in [id number] activity are seen in a wide variety of conditions including metastatic cancer, neonates, serious infections and cirrhosis of the liver. For more information on this test, go to http://education.[employer]/faq/LAH034 Test Performed by [employer], [facility], [address] [place] [address] Noe Hernandez M.D., Ph.D., Director of Laboratories , [facility] [id number] 03/07/2025 11:4 1 PM CDT Wesly Steve MD LABORATORY Final Result Performing Organization Address [facility] Co de Phone Number [employer] [address] , [place] [phone] * (ABNORMAL) PROCALCITONIN (PCT) (03/07/2025 11:41 PM CDT) Pathologist [facility] PROCALCITONIN 2.85(H) 0.00 - 0.49 NG/ML 03/08/2025 1:14 PM CDT [facility] Comment: VALUES ABOVE 2.00 NG/ML ARE HIGHLY SUGGESTIVE OF SEPSIS OR OTHER SEVERE BACTERIAL INFECTION. 03/07/2025 11:4 1 PM CDT Wesly Steve MD LABORATORY Final Result Performing Organization Address City/[facility] Co de Phone Number [facility] [address] [place] [address], [place] [phone] * (ABNORMAL) TSH W/REFLEX (03/07/2025 11:41 PM CDT) TSH 0.250(L) 0.358 - 3.740 uIU/ML 03/08/2025 12:47 AM CDT [facility] Comment: ASSAY PERFORMED BY CHEMILUMINESCENCE METHODOLOGY USING SIEMENS DIMENSION VISTA REAGENT. PATIENT RESULTS DETERMINED BY ASSAYS USING DIFFERENT MANUFACTURERS FOR METHODS MAY NOT BE COMPARABLE. 03/07/2025 11:4 1 PM CDT us Wesly Steve MD LABORATORY Final Result Performing Organization Address [facility] Co de Phone Number [facility] [address] [place] [address], [place] [phone] * CMV DNA QUANT REAL TIME PCR (03/07/2025 11:41 PM CDT) Pathologist [facility] SPECIMEN SOURCE EDTA PLASMA 03/08/20 8:43 AM CDT [facility] CMV DNA QN PCR (BLD) Not Detected IU/mL 03/10/2025 6:53 PM CDT [employer] OSPINABoostableADRIAN COX CMV DNA QUANT PCR (BLD) Not Detected log IU/mL 03/10/2025 6:53 PM CDT [employer] DAIJA COX Comment: REFERENCE RANGE: NOT DETECTED For additional information, please refer to http://education.[employer]/faq/CMVandEBVPCR (This link is being provided for informational/ educational purposes only.) Test Performed by Oversi Alee, [facility], [address] [place] [address] Noe Hernandez M.D., Ph.D., Director of Laboratories , [facility] [id number] 03/07/2025 11:4 1 PM CDT us Wesly Steve MD LABORATORY Final Result Performing Organization Address City/[facility]/ZIP Co de Phone Number [employer], [facility] [place] [phone] [place] [address], [facility] [address] [place] [address], [place] [phone] * (ABNORMAL) IRON SATURATION PANEL (FE,IBC,%SAT) (03/07/2025 11:41 PM CDT) IRON 53 50 - 170 MCG/DL 03/08/2025 12:47 AM CDT [facility] IRON BINDING CAPACITY 202(L) 250 - 450 MCG/DL 03/08/2025 12:47 AM CDT [facility] IRON SATURATION 26 % 12:47 AM CDT [facility] Comment:REFERENCE RANGE NOT ESTABLISHED 03/07/2025 11:4 1 PM CDT us Wesly Steve MD LABORATORY Final Result Performing Organization Address City/[facility]/ZIP Co de Phone Number [facility] [address] [place] [address], [place] [phone] * VITAMIN B-12 (03/07/2025 11:41 PM CDT) VITAMIN B12 S/P/B 511 193 - 986 PG/ML 03/08/2025 12:35 AM CDT [facility] 03/07/2025 11:4 1 PM CDT us Wesly Steve MD LABORATORY Final Result Performing Organization Address [facility]/ZIP Co de Phone Number [facility] [address] [place] [address], [place] [phone] * SED RATE, ERYTHROCYTE (ESR,WSR) (03/07/2025 11:41 PM CDT) ESR 15 0 - 20 MM/HR 03/08/2025 12:03 AM CDT [facility] 03/07/2025 11:4 1 PM CDT us Wesly Steve MD LABORATORY Final Result Performing Organization Address City/[facility]/ZIP Co de Phone Number [facility] [address] [place] [address], [place] [phone] * (ABNORMAL) COMPREHENSIVE METABOLIC PANEL (03/07/2025 11:41 PM CDT) [employer] Signature SODIUM S/P/B 137 136 - 145 MMOL/L 03/08/2025 12:47 AM CDT [facility] POTASSIUM S/P/B 3.4(L) 3.5 - 5.1 MMOL/L 03/08/2025 12:47 AM CDT [facility] CHLORIDE S/P/B 107 97 - 115 MMOL/L 03/08/2025 12:47 AM CDT [facility] CO2 24.5 21.0 - 32.0 MMOL/L 03/08/2025 12:47 AM T [facility] GLUCOSE 261(H) 74 - 106 MG/DL 03/08/2025 12:47 AM CDT [facility] BUN 8 7 - 18 MG/DL 03/08/2025 12:47 AM CDT [facility] CREATININE S/P/B 0.80 0.55 - 1.02 MG/DL 03/08/2025 12:47 AM CDT [facility] CALCIUM S/P/B 8.0(L) 8.5 - 10.1 MG/DL 03/08/2025 12:47 AM CDT [facility] BILIRUBIN TOTAL S/P/B 0.4 0.2 - 1.0 MG/DL 03/08/2025 12:47 AM CDT [facility] ALKALINE PHOSPHATASE S/P/B 71 46 - 118 U/L 03/08/2025 12:47 AM CDT [facility] AST 43(H) 15 - 37 U/L 03/08/2025 12:47 AM CDT [facility] ALT 46 13 - 56 U/L 03/08/2025 12:47 AM CDT [facility] TOTAL PROTEIN S/P/B 6.5 6.4 - 8.2 G/DL 03/08/2025 12:47 AM CDT [facility] ALBUMIN S/P/B 2.9(L) 3.4 - 5.0 G/DL 03/08/2025 12:47 AM CDT [facility] ANION GAP 5.5 2.0 - 10.0 MMOL/L 03/08/2025 12:47 AM CDT [facility] OSMOLALITY (CALC) 291 MOSM/KG 025 12:47 AM CDT [facility] Comment:REFERENCE RANGE NOT ESTABLISHED GFR ESTIMATE 85(L) >90 ML/MIN/1. 73 M2 03/08/2025 12:47 AM CDT [facility] GFR NOTES GFR REFERENCE S: 03/08/2025 12:47 AM T [facility] Comment: THE ESTIMATED GFR IS [...] ml/min/1.73 m2 03/07/2025 11:4 1 PM CDT Wesly Steve MD LABORATORY Final Result [facility] [address] [place] [address], [id number] * (ABNORMAL) LDH, LACTATE DEHYDROGENASE (03/07/2025 11:41 PM CDT) LDH 249(H) 84 - 246 UNITS/L 03/08/2025 12:47 AM CDT [facility] 03/07/2025 11:4 1 PM CDT us Wesly Steve MD LABORATORY Final Result [facility] [address] [place] [address], [place] [phone] [id number] * (ABNORMAL) DIC PANEL (03/07/2025 11:41 PM CDT) PROTIME 12.1 9.4 - 12.5 SEC 03/08/2025 12:11 AM CDT [facility] INR 1.1 0.8 - 1.1 03/08/2025 12:11 AM CDT [facility] PTT 27.3 25.1 - 36.5 SEC 03/08/2025 12:12 AM CDT [facility] FIBRINOGEN 330 200 - 393 MG/DL 03/08/2025 12:10 AM CDT [facility] D-DIMER 932(H) 0 - 500 ng{FEU}/m L 03/08/2025 12:11 AM CDT [facility] EXCLUSION STATEMENT 03/08/2025 12:11 AM CDT [facility] Comment: D-Dimer values less than [...] - 350 x10'3/uL 03/07/2025 11:58 PM CDT [facility] 03/07/2025 11:4 1 PM CDT us Wesly Steve MD LABORATORY Final Result [facility] [address] [place] [address], [place] [phone] [id number] * (ABNORMAL) C-REACTIVE PROTEIN (03/07/2025 11:41 PM CDT) C-REACTIVE PROTEIN 2.96(H) <0.80 mg/dL 03/08/2025 12:47 AM CDT [facility] 03/07/2025 11:4 1 PM CDT us Wesly Steve MD LABORATORY Final Result [facility] [address] [place] [address], [id number] * BLOOD SMEAR PERIPHERAL INTERP PHYS W/WRIT REPORT (03/07/2025 11:41 PM CDT) CBC PATHOLOGIST COMMENT SENT TO PATHOLOGIST FOR REVIEW 03/08/2025 3:04 PM CDT [facility] 03/07/2025 11:4 1 PM CDT us Wesly Steve MD LABORATORY Final Result [facility] [address] [place] [address], [place] [phone] [id number] * FOLIC ACID SERUM (03/07/2025 11:41 PM CDT) FOLATE 5.2 3.1 - 17.5 NG/ML 03/08/2025 12:35 AM CDT [facility] 03/07/2025 11:4 1 PM CDT us Wesly Steve MD LABORATORY Final Result [facility] [address] [place] [address], [place] [phone] [id number] * (ABNORMAL) THYROXINE, FREE (FT4) (03/07/2025 11:41 PM CDT) FREE T4 1.55(H) 0.76 - 1.46 NG/DL 03/08/2025 1:05 AM CDT [facility] 03/07/2025 11:4 1 PM CDT us Wesly Steve MD LABORATORY Final Result [facility] [address] [place] [address], [id number] * Pathology (03/07/2025 12:00 AM CDT) PATHOLOGY [facility] Department of Laboratory Medicine [address] [place] [address] , extension [phone] Pathology Report Peripheral Smear Report Name: IEVTH BOOGIE Specimen #: [id number] Age: 6 1965 (Age: 60) Location: [facility] Sex: F Procedure Date: 03/07/2025 [facility] #: [id number] Date Received: 03/08/2025 Date Reported: 03/08/2025 Provider: [...] 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 [id number] testing is pending at the time of [...] Interpretation and sign out were performed at [address], [address] [place] [address]. [facility] 03/07/2025 03/08/2025 7:5 2 AM CDT Comment:Peripheral blood Wesly Steve MD PATHOLOGY/CYTOLOGY ORDERABLES F inal Result [facility] [address] [place] [address], [id number] from Last 3 Months Insurance MEDICAID MEDICARE Advance Directives * Full Code (Latest Code Status on File) Date Activated Date Inactivated Comments 03/07/2025 10:49 PM 03/12/2025 8:04 PM Care Teams High School Coach Relationship Specialty Start Date End Date Reagan Fonseca MD [address] [place], [place] [phone] PCP - General FAMILY PRACTICE 01/26/25
[2025-05-02 10:41] VITALS: BP 117/69; PULSE 80; RESP 16; TEMP 36.5; O2SAT 98
[2025-05-02 10:46] LABS: Hematocrit 34.3 % (35.0-49.0); Hemoglobin 10.8 g/dL (12.0-15.0); Immature Platelet Fraction Pct 1.4 % (1.0-7.0); Mean Corpuscular HGB Conc 31.5 g/dL (32-36); Mean Corpuscular Hemoglobin 29.4 pg (27.0-31.0); Mean Corpuscular Volume 93.5 fL (78.0-102.0); Platelet Count Result 121 K/mm3 (150-420); Red Blood Count 3.67 M/mm3 (4.20-5.40); White Blood Count 2.3 K/mm3 (4.8-10.8)
[2025-05-02 10:56] LABS: Alanine Aminotransferase 20 U/L (6-35); Albumin Level 3.9 g/dL (3.5-5.1); Alkaline Phosphatase 68 U/L (38-126); Anion Gap 6 mmol/L (4-12); Aspartate Amino Transferase 27 U/L (14-36); Bilirubin,Total 0.4 mg/dL (0.2-1.3); Blood Urea Nitrogen 10 mg/dL (7-17); Calcium 9.1 mg/dL (8.4-10.2); Carbon Dioxide 27 mmol/L (22-30); Chloride 108 mmol/L (98-107); Estimated Glomerular Filt Rate > 60; Glucose 129 mg/dL (65-110); Osmolality Calculated 293 mOsm/kg (285-295); Potassium 4.0 mmol/L (3.4-5.0); Sodium 141 mmol/L (137-145); Total Protein 7.0 g/dL (6.3-8.2)
[2025-05-02 10:58] LABS: Band Neutrophils Percent 0 % (0-6); Basophils Absolute Manual 0.04 K/mm3 (0-0.1); Basophils Percent Manual 2 % (0-1); Eosinophils Absolute Manual 0.02 K/mm3 (0.02-0.50); Eosinophils Percent Manual 1 % (1-6); Lymphocytes Absolute Manual 0.92 K/mm3 (1.1-4.5); Lymphocytes Percent Manual 40 % (18-44); Monocytes Absolute Manual 0.18 K/mm3 (0.1-0.90); Monocytes Percent Manual 8 % (3-9); Neutrophils Absolute Manual 1.12 K/mm3 (1.3-6.7); Neutrophils Percent Manual 49 % (46-73); Total Cells Counted 100
[2025-05-02] MEDS: HEPARIN SODIUM LOCK FLUSH 500 UNITS/5 ML SYRINGE (11:10)
--- NOTE | 2025-05-02 11:12 | PC.NURSE ---
Tolerated port draw well. SEE MAR/patient care notes.
== END 2025-05-02 10:23 | disposition home or self-care (01) ==
PROVIDERS: PCP Family Medicine; Visit Provider Internal Medicine Hematology
DX: D46.9 Myelodysplastic syndrome, unspecified (principal)
CPT/HCPCS: 36415; 36591; 80053; 85025; 85055

== ENCOUNTER 2025-05-08 10:26 | Outpatient (CLI) | payer MEDICARE, MEDICAID, SELFPAY ==
[2025-05-08] MEDS: HEPARIN SODIUM LOCK FLUSH 500 UNITS/5 ML SYRINGE IV PUSH (10:30)
[2025-05-08 10:54] LABS: Hematocrit 34.7 % (35.0-49.0); Hemoglobin 10.9 g/dL (12.0-15.0); Immature Platelet Fraction Pct 2.1 % (1.0-7.0); Mean Corpuscular HGB Conc 31.4 g/dL (32-36); Mean Corpuscular Hemoglobin 29.5 pg (27.0-31.0); Mean Corpuscular Volume 94.0 fL (78.0-102.0); Platelet Count Result 89 K/mm3 (150-420); Red Blood Count 3.69 M/mm3 (4.20-5.40); White Blood Count 2.2 K/mm3 (4.8-10.8)
[2025-05-08 11:03] LABS: Alanine Aminotransferase 21 U/L (6-35); Albumin Level 4.0 g/dL (3.5-5.1); Alkaline Phosphatase 68 U/L (38-126); Anion Gap 8 mmol/L (4-12); Aspartate Amino Transferase 27 U/L (14-36); Bilirubin,Total 0.6 mg/dL (0.2-1.3); Blood Urea Nitrogen 9 mg/dL (7-17); Calcium 9.3 mg/dL (8.4-10.2); Carbon Dioxide 27 mmol/L (22-30); Chloride 106 mmol/L (98-107); Estimated Glomerular Filt Rate > 60; Glucose 141 mg/dL (65-110); Osmolality Calculated 292 mOsm/kg (285-295); Potassium 4.2 mmol/L (3.4-5.0); Sodium 141 mmol/L (137-145); Total Protein 7.0 g/dL (6.3-8.2)
[2025-05-08 11:06] LABS: Band Neutrophils Percent 0 % (0-6); Eosinophils Absolute Manual 0.02 K/mm3 (0.02-0.50); Eosinophils Percent Manual 1 % (1-6); Lymphocytes Absolute Manual 1.01 K/mm3 (1.1-4.5); Lymphocytes Percent Manual 46 % (18-44); Monocytes Absolute Manual 0.13 K/mm3 (0.1-0.90); Monocytes Percent Manual 6 % (3-9); Neutrophils Absolute Manual 1.03 K/mm3 (1.3-6.7); Neutrophils Percent Manual 47 % (46-73); Total Cells Counted 100
== END 2025-05-08 10:27 | disposition home or self-care (01) ==
PROVIDERS: PCP Family Medicine; Visit Provider Internal Medicine Hematology
DX: D46.21 Refractory anemia with excess of blasts 1 (principal)
CPT/HCPCS: 36415; 36591; 80053; 85025; 85055

== ENCOUNTER 2025-05-13 12:59 | Outpatient (CLI) | payer MEDICARE, SELFPAY ==
[2025-05-13 13:04] VITALS: BMI 30.3
--- OUTSIDE RECORDS SUMMARY | 2025-05-13 13:10 | XMS_ITS | Encounter Summary ---
Author Organization [facility] Address [address] [place] [id number] Care Team Providers Care Billboard Erector Helper Name Role Phone Reagan Fonseca MD Primary Care Provider [phone] Encounter Details Date Type Department Care Team (Late st Contact Info) Description 02/24/2019 Abstract [facility] CONVERSION [address] [place] [address] , Generic Conversion, Social History Tobacco Use [...] on filedocumented in this encounter Care Teams Billboard Erector Helper Relationship Specialty Start Date End Date Reagan Fonseca MD [address] [place] [address] PCP - General FAMILY PRACTICE 01/26/25 documented as of this encounter
--- OUTSIDE RECORDS SUMMARY | 2025-05-13 13:10 | XMS_ITS | Encounter Summary ---
Author Organization [facility] Address [address] [place] [address] Care Team Providers Care Limnologist Name Role Phone Reagan Fonseca MD Primary Care Provider [phone] Encounter Details Date Type Department Care Team (Late st Contact Info) Description 12/03/2017 Abstract [facility] CONVERSION [address] [place] [address] , Generic Conversion, Social History Tobacco Use [...] on filedocumented in this encounter Care Teams Limnologist Relationship Specialty Start Date End Date Reagan Fonseca MD [address] [place] [address] PCP - General FAMILY PRACTICE 01/26/25 documented as of this encounter
--- OUTSIDE RECORDS SUMMARY | 2025-05-13 13:10 | XMS_ITS | Clinical Summary ---
Author Organization [facility] Address [address] [place] [address] Care Team Providers Care Telemarketer Supervisor Name Role Phone Reagan Fonseca MD Primary Care Provider [phone] Allergies Active Allergy Reactions Criticality Noted Date [...] 04/16/2025 11:59 PM CDT Hospital Encounter [facility] Interventional Radiology [address] [place] [address] Lisette Das MD Discharge Disposition: Home or Self Care (Routine Discharge) 04/16/2025 11:30 AM CDT - 04/16/2025 11:46 AM CDT Hospital Encounter [facility] Laboratory [address] [place] [address] Gavino De La Rosa MD Discharge Disposition: Home or Self Care (Routine Discharge) 04/16/2025 Travel 04/12/[address] [facility] Interventional Radiology [address] [place] [address] Jose Becerra PA-C Appointment Request 03/07/2025 9:51 PM CDT - 03/12/2025 5:58 PM CDT Hospital Encounter [facility] Neurology [address] [place] [address] Hansel Strickland MD Sheikh, Omer S, MD [...] from your doctor or pharmacy? Rarely 03/08/2025 [facility] Utilities Answer Date Recorded In the past 12 months has e [employer], gas, oil, or water [employer] threatened to shut off services in your [...] week 03/08/2025 How often do you attend baptism or oriental orthodox serv ices? Never 03/08/2025 Do you belong to any clubs o r organizations such as baptism groups, unions, fraternal or athletic groups, or [...] medical care, and heating? Patient declined 03/08/2025 [facility] - Occupational Stress [...] any time in the past 12 m [facility], were you homeless or living in a intermediate (including now)? No 03/08/2025 Comments No Sex [...] SERUM Routine 03/07/2025 11:4 1 PM CDT [id number] ACT W/RFLX INHIBITOR Routine 03/07/2025 11:41 PM [...] 4:40 PM Narrative 04/16/2025 4:41 PM CDT [address] [address] Procedure: Ultrasound and fluoroscopically guided placement of tunneled central venous catheter and implanted power injectable port INDICATION: Myelodysplastic syndrome TECHNIQUE: Following informed consent, the patient was placed supine on the angiographic exam table. [place]lo[place]a protocol was observed to verify correct patient, [...] end-tidal CO2, and EKG. Total intraservice or dohm-lo-gyfk sedation time: 15 minutes. Fluoroscopy: 0.2 min, Ka.r 2 mGy Procedure Note Gavino De La Rosa MD - 04/16/[address] [address] Procedure: Ultrasound and fluoroscopically guided placement of tunneledcentral venous catheter and implanted power injectable port INDICATION: Myelodysplastic syndrome TECHNIQUE: Following informed consent, the patient was placed supine onthe angiographic exam table. [place]a protocol was observed to verifycorrect patient, site, [...] end-tidal CO2, and EKG. Total intraservice or ttgl-rb-lzmaqfvnrcio time: 15 minutes. Fluoroscopy: 0.2 min, Ka.r [...] - 12.5 SEC 04/16/2025 12:38 PM CDT [facility] INR 1.1 0.8 - 1.1 04/16/2025 12:38 PM CDT [facility] 04/16/2025 12:1 2 PM CDT Gavino De La Rosa MD LABORATORY Final Result [facility] [address] [place] [address], [place] [phone] * (ABNORMAL) CBC W/DIFF AUTOMATED (04/16/2025 12:12 PM CDT) Only the most recent of7 resultswithin the time period is included. WBC 1.77(L) 4.00 - 10.80 x10'3/uL 04/16/2025 12:28 PM CDT [facility] RBC 3.81(L) 4.10 - 5.40 x10'6/uL 04/16/2025 12:28 PM CDT [facility] HGB 11.3(L) 12.0 - 16.0 G/DL 04/16/2025 12:28 PM CDT [facility] HCT 35.2(L) 36.0 - 47.0 % 04/16/2025 12:28 PM CDT [facility] MCV 92.4 78.0 - 100.0 FL 04/16/2025 12:28 PM CDT [facility] MCH 29.7 27.0 - 31.0 PG 04/16/2025 12:28 PM CDT [facility] MCHC 32.1(L) 33.0 - 36.0 G/DL 04/16/2025 12:28 PM CDT [facility] RDW 19.1(H) 11.5 - 14.5 % 04/16/2025 12:28 PM CDT [facility] PLT 216 150 - 350 x10'3/uL 04/16/2025 1:05 PM CDT [facility] MPV 10.4 7.4 - 10.4 FL 04/16/2025 1:05 PM CDT [facility] DIFFERENTIAL TYPE MANUAL DIFFERENTIAL 04/16/2025 1:10 PM CDT [facility] NRBC % 0.0 % 04/16/2025 1:10 PM CDT [facility] SEG NEUTROPHILS 33 % 1:10 PM CDT [facility] LYMPHOCYTES 57 % 04/16/2025 1:10 PM CDT [facility] MONOCYTES 3 % 04/16/2025 1:10 PM CDT [facility] EOSINOPHILS 3 % 04/16/2025 1:10 PM CDT [facility] BASOPHILS 3 % 04/16/2025 1:10 PM CDT [facility] BLASTS 1 % 04/16/2025 1:10 PM CDT [facility] ABS. NEUTROPHILS 0.58(L) 1.60 - 8.30 x10'3/uL 04/16/2025 1:10 PM CDT [facility] ABS. LYMPHOCYTES 1.01 0.80 - 4.70 x10'3/uL 04/16/2025 1:10 PM CDT [facility] ABS. MONOCYTES 0.05 0.00 - 1.50 x10'3/uL 04/16/2025 1:10 PM CDT [facility] ABS. EOSINOPHILS 0.05 0.00 - 0.40 x10'3/uL 04/16/2025 1:10 PM CDT [facility] ABS. BASOPHILS 0.05 0.00 - 0.20 x10'3/uL 04/16/2025 1:10 PM CDT [facility] ABS. BLASTS 0.02(H) 0.00 x10'3/uL 04/16/2025 1:10 PM CDT [facility] ABS. NUCLEATED RBC'S 0.00 0.00 - 0.01 x10'3/uL 04/16/2025 1:10 PM CDT [facility] RBC MORPHOLOGY SLIDE REVIEWED 2024 1:10 PM CDT [facility] ANISO MODERATE 04/16/2025 1:10 PM CDT [facility] POIKLO SLIGHT 04/16/2025 1:10 PM CDT [facility] OVALOCYTES PRESENT 04/16/2025 1:10 PM CDT [facility] TEAR DROP PRESENT 04/16/2025 1:10 PM CDT [facility] ACANTHOCYTES PRESENT 04/16/2025 1:10 PM CDT [facility] PLT EST. ADEQUATE 04/16/2025 1:10 PM CDT [facility] 04/16/2025 12:1 2 PM CDT Gavino De La Rosa MD LABORATORY Final Result Performing Organization Address [facility] de Phone Number [facility] [address] [place] [address], [phone] * TRANSFUSE RED BLOOD CELLS (03/12/2025 5:39 PM CDT) Only the most recent of2 resultswithin the time period is included. Marcelle Rich MD NURSING TREATMENT ORDERABLES - B LOOD ADMIN Final Result * (ABNORMAL) POCT glucose (03/12/2025 4:04 PM CDT) Only the most recent of10 resultswithin the time period is included. GLUCOSE POC 170(H) 70 - 109 03/12/2025 4:08 PM CDT [facility] 03/12/2025 4:04 PM CDT Marcelle Rich MD POCT ORDERABLES - DEVICE Final R esult Performing Organization Address [facility] Co de Phone Number [facility] [address] [place] [address], [phone] * TRANSFUSE PLATELET PHERESIS (03/12/2025 1:41 PM CDT) Only the most recent of4 resultswithin the time period is included. Phani Sarmiento MD NURSING TREATMENT ORDERAB LES - BLOOD ADMIN Final Result * TYPE & SCREEN (03/12/2025 11:15 AM CDT) Only the most recent of2 resultswithin the time period is included. UNITS ORDERED 1 03/12/2025 11:01 AM CDT [facility] ABO/RH A POSITIVE 03/12/2025 1:38 PM CDT [facility] ANTIBODY SCREEN NEGATIVE 1:38 PM CDT [facility] SAMPLE EXPIRATION 03/15/2025,2359 03/12/2025 12:56 PM CDT [facility] BLOOD UNIT NUMBER [id number] 03/12/2025 1:38 PM CDT [facility] PRODUCT: PC LEUKOPOOR 03/12/2025 1:38 PM CDT [facility] UNIT DIVISION 00 03/12/2025 1:38 PM CDT [facility] BLOOD UNIT STATUS TRANSFUSED,FINAL 03/13/2025 6:44 AM CDT [facility] ISSUE DATE/TIME [id number] 025 6:44 AM CDT [facility] PRODUCT CODE [id number] 03/13/2025 6:44 AM CDT [facility] ABO/RH Unit A POS 03/13/2025 6:44 AM CDT [facility] ABO/RH UNIT ISBT CODE 6200 03/13/2025 6:44 AM CDT [facility] BLOOD UNIT EXPIRATION DATE [id number] 03/13/2025 6:44 AM CDT [facility] TRANSFUSION STATUS OK TO TRANSFUSE 03/12/2025 1:38 PM CDT [facility] CROSSMATCH COMPATIBLE-EXM 03/12/2025 1:38 PM CDT [facility] 03/12/2025 11:1 5 AM CDT us Marcelle Rich MD BLOOD BANK TEST ORDERABLES Final Result [facility] [address] [place] [address], [id number] * ORDER PLATELET PHERESIS, 1 Units (03/12/2025 6:46 AM CDT) Only the most recent of3 resultswithin the time period is included. UNITS ORDERED 1 03/12/2025 6:46 AM CDT [facility] BLOOD UNIT NUMBER [id number] 03/12/2025 9:57 AM CDT [facility] PRODUCT: PLT PHERESIS LEUKORED 7D BAG 2 03/12/2025 9:57 AM CDT [facility] UNIT DIVISION 00 03/12/2025 9:57 AM CDT [facility] BLOOD UNIT STATUS TRANSFUSED,FINAL 03/13/2025 6:44 AM CDT [facility] ISSUE DATE/TIME [id number] 025 6:44 AM CDT [facility] PRODUCT CODE [id number] 03/13/2025 6:44 AM CDT [facility] ABO/RH Unit AB POS 03/13/2025 6:44 AM CDT [facility] ABO/RH UNIT ISBT CODE 8400 03/13/2025 6:44 AM CDT [facility] BLOOD UNIT EXPIRATION DATE [id number] 03/13/2025 6:44 AM CDT [facility] TRANSFUSION STATUS OK TO TRANSFUSE 03/12/2025 9:57 AM CDT [facility] 03/12/2025 6:46 AM CDT Phani Sarmiento MD BLOOD BANK PRODUCT ORDERA BLES Final Result [facility] [address] [place] [address], [phone] * (ABNORMAL) BASIC METABOLIC PANEL (03/11/2025 9:42 AM CDT) Only the most recent of4 resultswithin the time period is included. [facility] SODIUM S/P/B 139 136 - 145 MMOL/L 03/11/2025 10:19 AM CDT [facility] POTASSIUM S/P/B 3.4(L) 3.5 - 5.1 MMOL/L 03/11/2025 10:19 AM [facility] CHLORIDE S/P/B 106 97 - 115 MMOL/L 03/11/2025 10:19 AM [facility] CO2 27.1 21.0 - 32.0 MMOL/L 03/11/2025 10:19 AM [facility] GLUCOSE 243(H) 74 - 106 MG/DL 03/11/2025 10:19 AM [facility] BUN 15 7 - 18 MG/DL 03/11/2025 10:19 AM [facility] CREATININE S/P/B 0.90 0.55 - 1.02 MG/DL 03/11/2025 10:19 AM [facility] CALCIUM S/P/B 8.6 8.5 - 10.1 MG/DL 03/11/2025 10:19 AM [facility] ANION GAP 5.9 2.0 - 10.0 MMOL/L 03/11/2025 10:19 AM [facility] OSMOLALITY (CALC) 297 MOSM/KG 025 10:19 AM [facility] Comment:REFERENCE RANGE NOT ESTABLISHED GFR ESTIMATE 74(L) >90 ML/MIN/1. 73 M2 03/11/2025 10:19 AM [facility] GFR NOTES GFR REFERENCE S: 03/11/2025 10:19 AM [facility] Comment: THE ESTIMATED GFR IS CALCULATED [...] MD LABORATORY Final Result Performing Organization Address [facility] Co de Phone Number [facility] [address] [place] [address], [id number] * PHOSPHORUS, INORGANIC PHOSPHATE (03/10/2025 2:41 AM CDT) PHOSPHORUS 3.5 2.5 - 4.9 MG/DL 03/10/2025 3:34 AM CDT [facility] 03/10/2025 2:41 AM CDT Marcelle Rich MD LABORATORY Final Result Performing Organization Address [facility] de Phone Number [facility] [address] [place] [address], [phone] * MAGNESIUM (03/10/2025 2:41 AM CDT) MAGNESIUM 1.9 1.6 - 2.6 MG/DL 03/10/2025 3:34 AM CDT [facility] 03/10/2025 2:41 AM CDT Marcelle Rich MD LABORATORY Final Result Performing Organization Address [facility] de Phone Number [facility] [address] [place] [address], [phone] * (ABNORMAL) Blood gas, venous (03/09/2025 5:27 PM CDT) PH VENOUS 7.39 7.32 - 7.42 03/09/2025 5:37 PM CDT [facility] PCO2 VENOUS 47.7 41.0 - 51.0 MMHG 03/09/2025 5:37 PM CDT [facility] PO2 VENOUS 31.9 25.0 - 40.0 MM HG 03/09/2025 5:37 PM CDT [facility] BICARB VENOUS 28.0 24 - 28 MMOL/L 03/09/2025 5:37 PM CDT [facility] TOTAL CO2 VENOUS 29.5(H) 25.0 - 29.0 MMOL/L 03/09/2025 5:37 PM CDT [facility] BASE EXCESS VENOUS 3.1(H) 0 - 2 MMOL/L 03/09/2025 5:37 PM CDT [facility] O2 SAT VENOUS 56 <75 % 03/09/2025 5:37 PM CDT [facility] 03/09/2025 5:27 PM CDT Marcelle Rich MD LABORATORY Final Result [facility] [address] [place] [address], [id number] * XR CHEST PORTABLE (03/08/2025 11:08 AM CDT) Anatomical Region Laterality Modality Chest Radiographic Aishwarya ging 03/08/2025 12:2 3 PM CDT Impressions 03/08/2025 12:24 PM CDT IMPRESSION: 1. Mild pulmonary vascular congestion. 2. No focal consolidation or pneumothorax. Ordered By: MARCELLE RICH Interpreted By: Bk Perez MD, 03/08/2025 12:23 PM Narrative 03/08/2025 12:24 PM CDT [facility] [address] [place], [place] [address] PROCEDURE: XR CHEST PORTABLE. 03/08/2025 11:06 AM. [...] Procedure Note Bk Perez MD - 03/08/2025 [place] [address] PROCEDURE: XR CHEST PORTABLE. 03/08/2025 11:06 AM. [...] CDT) TEST NAME: LEUKEMIA LYMPHOMA EVAL TEST [id number] 03/08/2025 1:46 PM CDT [facility] SPECIMEN TYPE PERIPHERAL BLOOD EDTA, ROOM TEMP 03/08/2025 1:46 PM CDT [facility] TEST RESULT: Flexitest 1 03/12/2025 11:42 AM CDT [email or web address] REGGIE THALIA Comment: Flexitest 1 CLINICAL INFORMATION: [...] staining intensity, forward scatter and side scatter. [place] A - Granulocytes Marker Percentage CD2 1 CD3 0 CD4 0 CD5 0 CD7 1 CD8 0 CD10 87 CD11c 96 CD13 91 CD19 0 CD19+CD5+ 0 CD20 0 CD23 1 CD33 3 CD34 0 CD38 2 CD45 100 CD56+CD3- 2 CD64 0 CD117 0 HLA_DR 2 [place] CD19+ 0 Lambda CD19+ 0 K/L Ratio NA [place] B - Lymphocytes Marker Percentage CD2 66 CD3 62 CD4 42 CD5 60 CD7 53 CD8 19 CD10 2 CD11c 6 CD13 0 CD19 22 CD19+CD5+ 0 CD20 22 CD23 14 CD33 0 CD34 0 CD38 46 CD45 100 CD56+CD3- 13 CD64 0 CD117 0 HLA_DR 25 [place] CD19+ 10 Lambda CD19+ 9 K/L Ratio 1.11 This test was developed and its analytical performance characteristics have been determined by [employer] [place]. It has not been cleared or approved by the U.S. Food and Drug Administration. This assay has been validated pursuant to the CLIA regulations and is used for clinical purposes. NUMBER OF MARKERS: 22 Test Performed by [employer], [employer] [place], [address] [place] [address] Noe Hernandez M.D., Ph.D., Director of Laboratories , CLIA [id number] 03/08/2025 11:0 7 AM CDT Almaz Hollins MD LABORATORY Final Result [facility] [address] [place] [address], [place] [phone] [facility] [address] [place] [address], [place] [phone] [id number] * FLOW CYTOMETRY, PERIPHERAL BLD (03/08/2025 11:07 AM CDT) [facility] FLOW CYTOMETRY TEST SENT TO [facility]. RESULTS WILL DISPLAY REF LAB TEST RESULT UNDER MISC TAB WHEN FINALIZED. 03/08/2025 12:12 PM CDT [facility] 03/08/2025 11:0 7 AM CDT Almaz Hollins MD LABORATORY Final Result Performing Organization Address [facility] Co de Phone Number [facility] [address] [place] [address], [place] [phone] * MISCELLANEOUS LAB TEST (03/08/2025 11:07 AM CDT) [facility] TEST NAME: HLA TYPING FOR PLATELETS, ALLOIMMUNIZATION 03/08/2025 8:04 AM CDT [facility] TEST RESULT: SEE BLOOD BANK FOR TESTING RESULTS 03/11/2025 7:37 AM CDT [facility] 03/08/2025 11:0 7 AM CDT Almaz Hollins MD LABORATORY Final Result Performing Organization Address [facility] Co de Phone Number [facility] [address] [place] [address], [place] [phone] * (ABNORMAL) RETICULOCYTE CT, AUTO (03/07/2025 11:43 PM CDT) [facility] % RETICULOCYTE COUNT 0.3(L) 0.6 - 2.3 % 03/08/2025 1:02 AM CDT [facility] ABSOLUTE RETICULOCYTE 0.01(L) 0.02 - 0.10 x10'6/uL 03/08/2025 1:02 AM CDT [facility] IMMATURE RETIC FRACTION 5.1 3.0 - 15.9 % 03/08/2025 1:02 AM CDT [facility] RETIC HGB 37.7(H) 28.0 - 35.0 PG 03/08/2025 1:02 AM CDT [facility] 03/07/2025 11:4 3 PM CDT Wesly Steve MD LABORATORY Final Result [facility] [address] [place] [address], [id number] * (ABNORMAL) EBV (RHONDA CAMP VIRUS) AB PANEL COMPREHENSIVE (INCL. EARLY AG D AB) (03/07/2025 11:41 PM CDT) [facility] EBV EARLY ANTIGEN-D AB IGG 71.00(H) <9.00 U/mL 03/12/2025 7:03 PM CDT [email or web address] DAIJA COX Comment: The potential exists for cross-reactivity with HIV (Human Immunodeficiency Virus) which could cause a false positive EBV-EA result. U/mL Interpretation <9.00 Negative 9.00 - 10.99 Equivocal >10.99 Positive EBV VCA IGM <36.00 <36.00 U/mL 03/12/2025 7:03 PM CDT [email or web address] DAIJA COX Comment: U/mL Interpretation <36.00 Negative 36.00 - 43.99 Equivocal >43.99 Positive RHONDA BAR NUCLEAR ANTIGEN IGG 69.90(H) <18.00 U/mL 03/12/2025 7:03 PM CDT [email or web address] DAIJA COX Comment: U/mL Interpretation <18.00 Negative 18.00 - 21.99 Equivocal >21.99 Positive EBV VCA IGG 262.00(H) <18.00 U/mL 03/12/2025 7:03 PM CDT [email or web address] DAIJA COX Comment: U/mL Interpretation <18.00 Negative 18.00 - 21.99 Equivocal >21.99 Positive Test Performed by Alee Mancia, [facility] [facility], [address] [place] [address] Noe Hernandez M.D., Ph.D., Director of Laboratories , [facility] [id number] 03/07/2025 11:4 1 PM CDT Wesly Steve MD LABORATORY Final Result [email or web address] , * [id number] ACT W/RFLX INHIBITOR (03/07/2025 11:41 PM CDT) [id number] ACTIVITY 0.79 0.68 - 1.63 IU/mL 03/10/2025 3:29 PM CDT [email or web address] OSPINAADRIAN COX Comment: Activity levels below 0.10 IU/mL are seen in acquired and hereditary thrombotic thrombocytopenic purpura (TTP). Not all patients with TTP will exhibit low levels of FLFAXL25 activity with this assay, i.e., post bone marrow transplantation, drug-induced TTP, and mutations of AEWZAJ38 at the CUB domain. Recent plasma exchange or immunosuppressive therapy may raise the observed activity levels. Mild decreases in XPTQVA03 activity are seen in a wide variety of conditions including metastatic cancer, neonates, serious infections and cirrhosis of the liver. For more information on this test, go to http://education.Intrallect/faq/ZDE950 Test Performed by [employer], [employer] [facility], [address] [place] [address] Noe Hernandez M.D., Ph.D., Director of Laboratories , [facility] [id number] 03/07/2025 11:4 1 PM CDT Wesly Steve MD LABORATORY Final Result Performing Organization Address [facility] Co de Phone Number [email or web address] [address] , [place] [phone] * (ABNORMAL) PROCALCITONIN (PCT) (03/07/2025 11:41 PM CDT) Pathologist [facility] PROCALCITONIN 2.85(H) 0.00 - 0.49 NG/ML 03/08/2025 1:14 PM CDT [facility] Comment: VALUES ABOVE 2.00 NG/ML ARE HIGHLY SUGGESTIVE OF SEPSIS OR OTHER SEVERE BACTERIAL INFECTION. 03/07/2025 11:4 1 PM CDT Wesly Steve MD LABORATORY Final Result Performing Organization Address City/[facility] Co de Phone Number [facility] [address] [place] [address], [place] [phone] * (ABNORMAL) TSH W/REFLEX (03/07/2025 11:41 PM CDT) TSH 0.250(L) 0.358 - 3.740 uIU/ML 03/08/2025 12:47 AM CDT [facility] Comment: ASSAY PERFORMED BY CHEMILUMINESCENCE METHODOLOGY USING [employer] REAGENT. PATIENT RESULTS DETERMINED BY ASSAYS USING DIFFERENT MANUFACTURERS FOR METHODS MAY NOT BE COMPARABLE. 03/07/2025 11:4 1 PM CDT us Wesly Steve MD LABORATORY Final Result Performing Organization Address [facility] Co de Phone Number [facility] [address] [place] [address], [place] [phone] * CMV DNA QUANT REAL TIME PCR (03/07/2025 11:41 PM CDT) Pathologist [facility] SPECIMEN SOURCE EDTA PLASMA 03/08/20 8:43 AM CDT [facility] CMV DNA QN PCR (BLD) Not Detected IU/mL 03/10/2025 6:53 PM CDT [email or web address] OSPINAReviewspotterADRIAN COX CMV DNA QUANT PCR (BLD) Not Detected log IU/mL 03/10/2025 6:53 PM CDT [email or web address] DAIJA COX Comment: REFERENCE RANGE: NOT DETECTED For additional information, please refer to http://education.Intrallect/faq/CMVandEBVPCR (This link is being provided for informational/ educational purposes only.) Test Performed by [employer], [employer] [facility], [address] [place] [address] Noe Hernandez M.D., Ph.D., Director of Laboratories , [facility] [id number] 03/07/2025 11:4 1 PM CDT us Wesly Steve MD LABORATORY Final Result Performing Organization Address City/[facility]/ZIP Co de Phone Number [place] [phone] [place] [address], [facility] [address] [place] [address], [place] [phone] * (ABNORMAL) IRON SATURATION PANEL (FE,IBC,%SAT) (03/07/2025 11:41 PM CDT) IRON 53 50 - 170 MCG/DL 03/08/2025 12:47 AM CDT [facility] IRON BINDING CAPACITY 202(L) 250 - 450 MCG/DL 03/08/2025 12:47 AM CDT [facility] IRON SATURATION 26 % 12:47 AM CDT [facility] Comment:REFERENCE RANGE NOT ESTABLISHED 03/07/2025 11:4 1 PM CDT us Wesly Steve MD LABORATORY Final Result Performing Organization Address City/[facility]/ZIP Co de Phone Number [facility] [address] [place] [address], [place] [phone] * VITAMIN B-12 (03/07/2025 11:41 PM CDT) VITAMIN B12 S/P/B 511 193 - 986 PG/ML 03/08/2025 12:35 AM CDT [facility] 03/07/2025 11:4 1 PM CDT us Wesly Steve MD LABORATORY Final Result Performing Organization Address [facility]/ZIP Co de Phone Number [facility] [address] [place] [address], [place] [phone] * SED RATE, ERYTHROCYTE (ESR,WSR) (03/07/2025 11:41 PM CDT) ESR 15 0 - 20 MM/HR 03/08/2025 12:03 AM CDT [facility] 03/07/2025 11:4 1 PM CDT us Wesly Steve MD LABORATORY Final Result Performing Organization Address City/[facility]/ZIP Co de Phone Number [facility] [address] [place] [address], [place] [phone] * (ABNORMAL) COMPREHENSIVE METABOLIC PANEL (03/07/2025 11:41 PM CDT) [facility] Signature SODIUM S/P/B 137 136 - 145 MMOL/L 03/08/2025 12:47 AM CDT [facility] POTASSIUM S/P/B 3.4(L) 3.5 - 5.1 MMOL/L 03/08/2025 12:47 AM CDT [facility] CHLORIDE S/P/B 107 97 - 115 MMOL/L 03/08/2025 12:47 AM CDT [facility] CO2 24.5 21.0 - 32.0 MMOL/L 03/08/2025 12:47 AM T [facility] GLUCOSE 261(H) 74 - 106 MG/DL 03/08/2025 12:47 AM CDT [facility] BUN 8 7 - 18 MG/DL 03/08/2025 12:47 AM CDT [facility] CREATININE S/P/B 0.80 0.55 - 1.02 MG/DL 03/08/2025 12:47 AM CDT [facility] CALCIUM S/P/B 8.0(L) 8.5 - 10.1 MG/DL 03/08/2025 12:47 AM CDT [facility] BILIRUBIN TOTAL S/P/B 0.4 0.2 - 1.0 MG/DL 03/08/2025 12:47 AM CDT [facility] ALKALINE PHOSPHATASE S/P/B 71 46 - 118 U/L 03/08/2025 12:47 AM CDT [facility] AST 43(H) 15 - 37 U/L 03/08/2025 12:47 AM CDT [facility] ALT 46 13 - 56 U/L 03/08/2025 12:47 AM CDT [facility] TOTAL PROTEIN S/P/B 6.5 6.4 - 8.2 G/DL 03/08/2025 12:47 AM CDT [facility] ALBUMIN S/P/B 2.9(L) 3.4 - 5.0 G/DL 03/08/2025 12:47 AM CDT [facility] ANION GAP 5.5 2.0 - 10.0 MMOL/L 03/08/2025 12:47 AM CDT [facility] OSMOLALITY (CALC) 291 MOSM/KG 025 12:47 AM CDT [facility] Comment:REFERENCE RANGE NOT ESTABLISHED GFR ESTIMATE 85(L) >90 ML/MIN/1. 73 M2 03/08/2025 12:47 AM CDT [facility] GFR NOTES GFR REFERENCE S: 03/08/2025 12:47 AM T [facility] Comment: THE ESTIMATED GFR IS [...] CDT Wesly Steve MD LABORATORY Final Result [facility] [address] [place] [address], [id number] * (ABNORMAL) LDH, LACTATE DEHYDROGENASE (03/07/2025 11:41 PM CDT) LDH 249(H) 84 - 246 UNITS/L 03/08/2025 12:47 AM CDT [facility] 03/07/2025 11:4 1 PM CDT us Wesly Steve MD LABORATORY Final Result [facility] [address] [place] [address], [place] [phone] * (ABNORMAL) DIC PANEL (03/07/2025 11:41 PM CDT) PROTIME 12.1 9.4 - 12.5 SEC 03/08/2025 12:11 AM CDT [facility] INR 1.1 0.8 - 1.1 03/08/2025 12:11 AM CDT [facility] PTT 27.3 25.1 - 36.5 SEC 03/08/2025 12:12 AM CDT [facility] FIBRINOGEN 330 200 - 393 MG/DL 03/08/2025 12:10 AM CDT [facility] D-DIMER 932(H) 0 - 500 ng{FEU}/m L 03/08/2025 12:11 AM CDT [facility] EXCLUSION STATEMENT 03/08/2025 12:11 AM CDT [facility] Comment: D-Dimer values less than [...] - 350 x10'3/uL 03/07/2025 11:58 PM CDT [facility] 03/07/2025 11:4 1 PM CDT us Wesly Steve MD LABORATORY Final Result [facility] [address] [place] [address], [place] [phone] [id number] * (ABNORMAL) C-REACTIVE PROTEIN (03/07/2025 11:41 PM CDT) C-REACTIVE PROTEIN 2.96(H) <0.80 mg/dL 03/08/2025 12:47 AM CDT [facility] 03/07/2025 11:4 1 PM CDT us Wesly Steve MD LABORATORY Final Result [facility] [address] [place] [address], [id number] * BLOOD SMEAR PERIPHERAL INTERP PHYS W/WRIT REPORT (03/07/2025 11:41 PM CDT) CBC PATHOLOGIST COMMENT SENT TO PATHOLOGIST FOR REVIEW 03/08/2025 3:04 PM CDT [facility] 03/07/2025 11:4 1 PM CDT us Wesly Steve MD LABORATORY Final Result [facility] [address] [place] [address], [place] [phone] [id number] * FOLIC ACID SERUM (03/07/2025 11:41 PM CDT) FOLATE 5.2 3.1 - 17.5 NG/ML 03/08/2025 12:35 AM CDT [facility] 03/07/2025 11:4 1 PM CDT us Wesly Steve MD LABORATORY Final Result [facility] [address] [place] [address], [place] [phone] [id number] * (ABNORMAL) THYROXINE, FREE (FT4) (03/07/2025 11:41 PM CDT) FREE T4 1.55(H) 0.76 - 1.46 NG/DL 03/08/2025 1:05 AM CDT [facility] 03/07/2025 11:4 1 PM CDT us Wesly Steve MD LABORATORY Final Result [facility] [address] [place] [address], [id number] * Pathology (03/07/2025 12:00 AM CDT) PATHOLOGY [facility] Department of Laboratory Medicine [address] [place] [address] , extension [phone] Pathology Report Peripheral Smear Report Name: IVETH BOOGIE Specimen #: [id number] Age: 6 1965 (Age: 60) Location: [facility] Sex: F Procedure Date: 03/07/2025 [facility] #: [id number] Date Received: 03/08/2025 Date Reported: 03/08/2025 Provider: [...] 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 [id number] testing is pending at the time of [...] Interpretation and sign out were performed at [address], [address] [place] [address]. [facility] 03/07/2025 03/08/2025 7:5 2 AM CDT Comment:Peripheral blood us Wesly Steve MD PATHOLOGY/CYTOLOGY ORDERABLES F inal Result [facility] [address] [place] [address], [id number] from Last 3 Months Advance Directives * Full Code (Latest Code Status on File) Date Activated Date Inactivated Comments 03/07/2025 10:49 PM 03/12/2025 8:04 PM Care Teams Telemarketer Supervisor Relationship Specialty Start Date End Date Reagan Fonseca MD [address] [place] [address] PCP - General FAMILY PRACTICE 01/26/25
[2025-05-13 13:19] LABS: Hematocrit 33.7 % (35.0-49.0); Hemoglobin 10.8 g/dL (12.0-15.0); Mean Corpuscular HGB Conc 32.0 g/dL (32-36); Mean Corpuscular Hemoglobin 29.8 pg (27.0-31.0); Mean Corpuscular Volume 92.8 fL (78.0-102.0); Platelet Count Result 107 K/mm3 (150-420); Red Blood Count 3.63 M/mm3 (4.20-5.40)
[2025-05-13 13:21] VITALS: BP 113/71; PULSE 78; RESP 16; TEMP 36.5; O2SAT 97
[2025-05-13 13:22] LABS: White Blood Count 1.8 K/mm3 (4.8-10.8)
[2025-05-13 13:31] LABS: Alanine Aminotransferase 17 U/L (6-35); Albumin Level 3.9 g/dL (3.5-5.1); Alkaline Phosphatase 68 U/L (38-126); Anion Gap 6 mmol/L (4-12); Aspartate Amino Transferase 25 U/L (14-36); Bilirubin,Total 0.4 mg/dL (0.2-1.3); Blood Urea Nitrogen 8 mg/dL (7-17); Calcium 9.2 mg/dL (8.4-10.2); Carbon Dioxide 29 mmol/L (22-30); Chloride 107 mmol/L (98-107); Estimated CRCL calculation 66 ml/min; Estimated Glomerular Filt Rate > 60; Glucose 114 mg/dL (65-110); Osmolality Calculated 293 mOsm/kg (285-295); Potassium 3.9 mmol/L (3.4-5.0); Sodium 142 mmol/L (137-145); Total Protein 6.9 g/dL (6.3-8.2)
[2025-05-13] MEDS: ONDANSETRON INJ 16 MG in SODIUM CHLORIDE 0.9% IV 50 ML 150 MG IVPB (13:39)
[2025-05-13] MEDS: DECITABINE IVPB (14:18)
[2025-05-13] MEDS: SODIUM CHLORIDE 0.9% IVPB (14:18)
[2025-05-13] MEDS: SODIUM CHLORIDE 0.9% IV 250 ML 10 ML IVPB (14:24)
[2025-05-13] MEDS: HEPARIN SODIUM LOCK FLUSH 500 UNITS/5 ML SYRINGE IV PUSH (15:16)
--- NOTE | 2025-05-13 15:21 | PC.NURSE ---
Patient tolerated Decitabine infusion well. SEE MAR and patient care notes.
[2025-05-13 15:30] VITALS: BP 121/67; PULSE 80; RESP 16; O2SAT 97
== END 2025-05-13 13:00 | disposition home or self-care (01) ==
PROVIDERS: PCP Family Medicine; Visit Provider Internal Medicine Hematology
DX: Z51.11 Encounter for antineoplastic chemotherapy (principal); D46.21 Refractory anemia with excess of blasts 1
CPT/HCPCS: 36415; 36591; 80053; 85027; 96367; 96413; J0894; J2405; J7050

== ENCOUNTER 2025-05-14 12:26 | Outpatient (CLI) | payer MEDICARE, SELFPAY ==
[2025-05-14 12:30] VITALS: BP 136/76; PULSE 68; RESP 14; TEMP 36.6; O2SAT 97; BMI 30.4
[2025-05-14] MEDS: SODIUM CHLORIDE 0.9% IV 250 ML 10 ML IVPB (12:35)
[2025-05-14] MEDS: ONDANSETRON IV PUSH (12:45)
[2025-05-14] MEDS: SODIUM CHLORIDE 0.9% IV PUSH (12:45)
[2025-05-14] MEDS: DECITABINE IVPB (13:09)
[2025-05-14] MEDS: SODIUM CHLORIDE 0.9% IVPB (13:09)
[2025-05-14] MEDS: HEPARIN SODIUM LOCK FLUSH 500 UNITS/5 ML SYRINGE IV PUSH (14:13)
[2025-05-14 14:28] VITALS: BP 129/80; PULSE 68; RESP 14; TEMP 36.6; O2SAT 97
--- NOTE | 2025-05-14 14:46 | PC.NURSE ---
Tolerated Decitabine treatment infusion well today.
== END 2025-05-14 12:27 | disposition home or self-care (01) ==
PROVIDERS: PCP Family Medicine; Visit Provider Internal Medicine Hematology
DX: Z51.11 Encounter for antineoplastic chemotherapy (principal); D46.21 Refractory anemia with excess of blasts 1
CPT/HCPCS: 96367; 96413; J0894; J2405; J7050

== ENCOUNTER 2025-05-15 11:24 | Outpatient (CLI) | payer MEDICARE, MEDICAID, SELFPAY ==
[2025-05-15] MEDS: ONDANSETRON IVPB (11:30)
[2025-05-15] MEDS: SODIUM CHLORIDE 0.9% IV 250 ML 10 ML IVPB (11:30)
[2025-05-15] MEDS: SODIUM CHLORIDE 0.9% IVPB ×2 (11:30→11:59)
[2025-05-15 11:39] VITALS: BMI 30.2
[2025-05-15 11:50] VITALS: BP 139/76; PULSE 72; RESP 14; TEMP 36.6; O2SAT 97
[2025-05-15] MEDS: DECITABINE IVPB (11:59)
[2025-05-15] MEDS: HEPARIN SODIUM LOCK FLUSH 500 UNITS/5 ML SYRINGE IV PUSH (13:15)
[2025-05-15 13:28] VITALS: BP 135/79; PULSE 68; RESP 16; TEMP 36.6; O2SAT 96
--- NOTE | 2025-05-15 13:30 | PC.NURSE ---
Patient tolerated day 3 cycle4 Decitabine treatment infusion well.
== END 2025-05-15 11:25 | disposition home or self-care (01) ==
PROVIDERS: PCP Family Medicine; Visit Provider Internal Medicine Hematology
DX: Z51.11 Encounter for antineoplastic chemotherapy (principal); D46.21 Refractory anemia with excess of blasts 1
CPT/HCPCS: 96367; 96413; J0894; J2405; J7050

== ENCOUNTER 2025-05-16 10:34 | Outpatient (CLI) | payer MEDICARE, MEDICAID, SELFPAY ==
[2025-05-16 10:35] VITALS: BP 138/76; PULSE 68; RESP 16; TEMP 36.8; O2SAT 97; BMI 30.3
[2025-05-16] MEDS: SODIUM CHLORIDE 0.9% IV 250 ML 10 ML IVPB (10:45)
[2025-05-16] MEDS: ONDANSETRON INJ 16 MG in SODIUM CHLORIDE 0.9% IV 50 ML 100 MG IVPB (10:50)
[2025-05-16] MEDS: SODIUM CHLORIDE 0.9% IVPB (11:20)
[2025-05-16] MEDS: DECITABINE IVPB (11:20)
[2025-05-16] MEDS: HEPARIN SODIUM LOCK FLUSH 500 UNITS/5 ML SYRINGE IV PUSH (12:18)
--- NOTE | 2025-05-16 12:50 | PC.NURSE ---
Tolerated cycle 4 day 4 Decitabone treatment infusion well. SEE MAR/Patient care notes.
[2025-05-16 12:51] VITALS: BP 132/77; PULSE 68; RESP 16; TEMP 36.7; O2SAT 96
== END 2025-05-16 10:35 | disposition home or self-care (01) ==
PROVIDERS: PCP Family Medicine; Visit Provider Internal Medicine Hematology
DX: Z51.11 Encounter for antineoplastic chemotherapy (principal); D46.21 Refractory anemia with excess of blasts 1
CPT/HCPCS: 96367; 96413; J0894; J2405; J7050

== ENCOUNTER 2025-05-17 10:39 | Outpatient (CLI) | payer MEDICARE, MEDICAID, SELFPAY ==
[2025-05-17 10:44] VITALS: BMI 30.2
[2025-05-17 10:58] VITALS: BP 130/74; PULSE 78; RESP 16; TEMP 36.6; O2SAT 97
[2025-05-17] MEDS: SODIUM CHLORIDE 0.9% IV 250 ML 10 ML IVPB (11:00)
[2025-05-17] MEDS: SODIUM CHLORIDE 0.9% IVPB ×2 (11:10→11:30)
[2025-05-17] MEDS: ONDANSETRON IVPB (11:10)
[2025-05-17] MEDS: DECITABINE IVPB (11:30)
[2025-05-17 12:49] VITALS: BP 130/80; PULSE 68; RESP 14; TEMP 36.6; O2SAT 96
--- NOTE | 2025-05-17 12:51 | PC.NURSE ---
Tolerated cycle 4 day 5 Decitabine treatment well. SEE MAR/Patient care notes.
[2025-05-17] MEDS: HEPARIN SODIUM LOCK FLUSH 500 UNITS/5 ML SYRINGE IV PUSH (12:54)
== END 2025-05-17 10:40 | disposition home or self-care (01) ==
PROVIDERS: PCP Family Medicine; Visit Provider Internal Medicine Hematology
DX: Z51.11 Encounter for antineoplastic chemotherapy (principal); D46.21 Refractory anemia with excess of blasts 1
CPT/HCPCS: 96367; 96413; J0894; J2405; J7050

== ENCOUNTER 2025-05-23 12:32 | Outpatient (CLI) | payer MEDICARE, MEDICAID, SELFPAY ==
--- OUTSIDE RECORDS SUMMARY | 2025-05-23 12:39 | XMS_ITS | Encounter Summary ---
Author Organization [facility] Address [address] [place] [address] Care Team Providers Care Application Penetration Tester Name Role Phone Reagan Fonseca MD Primary Care Provider [phone] Encounter Details Date Type Department Care Team (Late st Contact Info) Description 02/24/2019 Abstract [facility] CONVERSION [address] [place] [address] , Generic Conversion, Social History Tobacco Use [...] on filedocumented in this encounter Care Teams Application Penetration Tester Relationship Specialty Start Date End Date Reagan Fonseca MD [address] [place] [address] PCP - General FAMILY PRACTICE 01/26/25 documented as of this encounter
--- OUTSIDE RECORDS SUMMARY | 2025-05-23 12:40 | XMS_ITS | Encounter Summary ---
Author Organization [facility] Address [address] [place] [address] Care Team Providers Care [employer] Miner Name Role Phone Reagan Fonseca MD Primary Care Provider [phone] Encounter Details Date Type Department Care Team (Late st Contact Info) Description 12/03/2017 Abstract [facility] CONVERSION [address] [place] [address] , Generic Conversion, Social History Tobacco Use [...] on filedocumented in this encounter Care Teams [employer]er Relationship Specialty Start Date End Date Reagan Fonseca MD [address] [place] [address] PCP - General FAMILY PRACTICE 01/26/25 documented as of this encounter
--- OUTSIDE RECORDS SUMMARY | 2025-05-23 12:40 | XMS_ITS | Clinical Summary ---
Author Organization [facility] Address [address] [place] [address] Care Team Providers Care Assistant Professor Of Nursing Name Role Phone Reagan Fonseca MD Primary Care Provider [phone] Allergies Active Allergy Reactions Criticality Noted Date [...] mg total) by mouth daily. 5 Active nitrofurantoin, macrocrystal-mo nohydrate, (MACROBID) 100 MG capsule Take 1 capsule (100 mg total) by mouth 2 (two) times daily. 5 Active LORazepam (ATIVAN) 0.5 MG tablet Take 1 tablet (0.5 mg total) by mouth 2 (two) times daily as needed. 5 Active Active Problems Problem Noted Date Diagnosed Date Thrombocytopenia 03/07/2025 Encounters Date Type Department Care Team Description 04/16/2025 11:47 AM CDT - 04/16/2025 11:59 PM CDT Hospital Encounter [facility] Interventional Radiology [address] [place] [address] Lisette Das MD Discharge Disposition: Home or Self Care (Routine Discharge) 04/16/2025 11:30 AM CDT - 04/16/2025 11:46 AM CDT Hospital Encounter [facility] Laboratory [address] [place] [address] Gavino De La Rosa MD Discharge Disposition: Home or Self Care (Routine Discharge) 04/16/2025 Travel 04/12/[address] [facility] Interventional Radiology [address] [place] [address] Jose Becerra PA-C Appointment Request 03/07/2025 9:51 PM CDT - 03/12/2025 5:58 PM CDT Hospital Encounter [facility] Neurology [address] [place] [address] Hansel Strickland MD Sheikh, Omer S, MD [...] from your doctor or pharmacy? Rarely 03/08/2025 [facility] Utilities Answer Date Recorded In the past 12 months has e [employer], gas, oil, or water [employer] threatened to shut off services in your [...] week 03/08/2025 How often do you attend christian or roman catholic serv ices? Never 03/08/2025 Do you belong to any clubs o r organizations such as christian groups, unions, fraternal or athletic groups, or [...] medical care, and heating? Patient declined 03/08/2025 [facility] - Occupational Stress Questionnaire Answer Date Recorded [...] any time in the past [address] [facility], were you homeless or living in a [...] COVID-19 Vaccine (1 - 2023-2 5 season) 2025 DTaP, Tdap and Td Vaccines ( 2 [...] SERUM Routine 03/07/2025 11:4 1 PM CDT [id number] ACT W/RFLX INHIBITOR Routine 03/07/2025 11:41 PM [...] 4:40 PM Narrative 04/16/2025 4:41 PM [address]T [address] [address] Procedure: Ultrasound and fluoroscopically guided placement of tunneled central venous catheter and implanted power injectable port INDICATION: Myelodysplastic syndrome TECHNIQUE: Following informed consent, the patient was placed supine on the angiographic exam table. [place] protocol was observed to verify correct patient, [...] end-tidal CO2, and EKG. Total intraservice or jtua-ud-bfjt sedation time: 15 minutes. Fluoroscopy: 0.2 min, Ka.r 2 mGy Procedure Note Gavino De La Rosa MD - 04/16/[address] [address] Procedure: Ultrasound and fluoroscopically guided placement of tunneledcentral venous catheter and implanted power injectable port INDICATION: Myelodysplastic syndrome TECHNIQUE: Following informed consent, the patient was placed supine onthe angiographic exam table. [place] protocol was observed to verifycorrect patient, site, [...] end-tidal CO2, and EKG. Total intraservice or diwo-fk-kqqjgzxhzxom time: 15 minutes. Fluoroscopy: 0.2 min, Ka.r [...] - 12.5 SEC 04/16/2025 12:38 PM CDT [facility] INR 1.1 0.8 - 1.1 04/16/2025 12:38 PM CDT [facility] 04/16/2025 12:1 2 PM CDT Gavino De La Rosa MD LABORATORY Final Result [facility] [address] [place] [address], [id number] * (ABNORMAL) CBC W/DIFF AUTOMATED (04/16/2025 12:12 PM CDT) Only the most recent of7 resultswithin the time period is included. WBC 1.77(L) 4.00 - 10.80 x10'3/uL 04/16/2025 12:28 PM CDT [facility] RBC 3.81(L) 4.10 - 5.40 x10'6/uL 04/16/2025 12:28 PM CDT [facility] HGB 11.3(L) 12.0 - 16.0 G/DL 04/16/2025 12:28 PM CDT [facility] HCT 35.2(L) 36.0 - 47.0 % 04/16/2025 12:28 PM CDT [facility] MCV 92.4 78.0 - 100.0 FL 04/16/2025 12:28 PM CDT [facility] MCH 29.7 27.0 - 31.0 PG 04/16/2025 12:28 PM CDT [facility] MCHC 32.1(L) 33.0 - 36.0 G/DL 04/16/2025 12:28 PM CDT [facility] RDW 19.1(H) 11.5 - 14.5 % 04/16/2025 12:28 PM CDT [facility] PLT 216 150 - 350 x10'3/uL 04/16/2025 1:05 PM CDT [facility] MPV 10.4 7.4 - 10.4 FL 04/16/2025 1:05 PM CDT [facility] DIFFERENTIAL TYPE MANUAL DIFFERENTIAL 04/16/2025 1:10 PM CDT [facility] NRBC % 0.0 % 04/16/2025 1:10 PM CDT [facility] SEG NEUTROPHILS 33 % 1:10 PM CDT [facility] LYMPHOCYTES 57 % 04/16/2025 1:10 PM CDT [facility] MONOCYTES 3 % 04/16/2025 1:10 PM CDT [facility] EOSINOPHILS 3 % 04/16/2025 1:10 PM CDT [facility] BASOPHILS 3 % 04/16/2025 1:10 PM CDT [facility] BLASTS 1 % 04/16/2025 1:10 PM CDT [facility] ABS. NEUTROPHILS 0.58(L) 1.60 - 8.30 x10'3/uL 04/16/2025 1:10 PM CDT [facility] ABS. LYMPHOCYTES 1.01 0.80 - 4.70 x10'3/uL 04/16/2025 1:10 PM CDT [facility] ABS. MONOCYTES 0.05 0.00 - 1.50 x10'3/uL 04/16/2025 1:10 PM CDT [facility] ABS. EOSINOPHILS 0.05 0.00 - 0.40 x10'3/uL 04/16/2025 1:10 PM CDT [facility] ABS. BASOPHILS 0.05 0.00 - 0.20 x10'3/uL 04/16/2025 1:10 PM CDT [facility] ABS. BLASTS 0.02(H) 0.00 x10'3/uL 04/16/2025 1:10 PM CDT [facility] ABS. NUCLEATED RBC'S 0.00 0.00 - 0.01 x10'3/uL 04/16/2025 1:10 PM CDT [facility] RBC MORPHOLOGY SLIDE REVIEWED 2024 1:10 PM CDT [facility] ANISO MODERATE 04/16/2025 1:10 PM CDT [facility] POIKLO SLIGHT 04/16/2025 1:10 PM CDT [facility] OVALOCYTES PRESENT 04/16/2025 1:10 PM CDT [facility] TEAR DROP PRESENT 04/16/2025 1:10 PM CDT [facility] ACANTHOCYTES PRESENT 04/16/2025 1:10 PM CDT [facility] PLT EST. ADEQUATE 04/16/2025 1:10 PM CDT [facility] 04/16/2025 12:1 2 PM CDT Gavino De La Rosa MD LABORATORY Final Result Performing Organization Address [facility] de Phone Number [facility] [address] [place] [address], [id number] * TRANSFUSE RED BLOOD CELLS (03/12/2025 5:39 PM CDT) Only the most recent of2 resultswithin the time period is included. us Marcelle Rich MD NURSING TREATMENT ORDERABLES - B LOOD ADMIN Final Result * (ABNORMAL) POCT glucose (03/12/2025 4:04 PM CDT) Only the most recent of10 resultswithin the time period is included. GLUCOSE POC 170(H) 70 - 109 03/12/2025 4:08 PM CDT [facility] 03/12/2025 4:04 PM CDT us Marcelle Rich MD POCT ORDERABLES - DEVICE Final R esult Performing Organization Address [facility] de Phone Number [facility] [address] [place] [address], [id number] * TRANSFUSE PLATELET PHERESIS (03/12/2025 1:41 PM CDT) Only the most recent of4 resultswithin the time period is included. us Phani Sarmiento MD NURSING TREATMENT ORDERAB LES - BLOOD ADMIN Final Result * TYPE & SCREEN (03/12/2025 11:15 AM CDT) Only the most recent of2 resultswithin the time period is included. UNITS ORDERED 1 03/12/2025 11:01 AM CDT [facility] ABO/RH A POSITIVE 03/12/2025 1:38 PM CDT [facility] ANTIBODY SCREEN NEGATIVE 1:38 PM CDT [facility] SAMPLE EXPIRATION 03/15/2025,2359 03/12/2025 12:56 PM CDT [facility] BLOOD UNIT NUMBER [id number] 03/12/2025 1:38 PM CDT [facility] PRODUCT: PC LEUKOPOOR 03/12/2025 1:38 PM CDT [facility] UNIT DIVISION 00 03/12/2025 1:38 PM CDT [facility] BLOOD UNIT STATUS TRANSFUSED,FINAL 03/13/2025 6:44 AM CDT [facility] ISSUE DATE/TIME [id number] 025 6:44 AM CDT [facility] PRODUCT CODE [id number] 03/13/2025 6:44 AM CDT [facility] ABO/RH Unit A POS 03/13/2025 6:44 AM CDT [facility] ABO/RH UNIT ISBT CODE 6200 03/13/2025 6:44 AM CDT [facility] BLOOD UNIT EXPIRATION DATE [id number] 03/13/2025 6:44 AM CDT [facility] TRANSFUSION STATUS OK TO TRANSFUSE 03/12/2025 1:38 PM CDT [facility] CROSSMATCH COMPATIBLE-EXM 03/12/2025 1:38 PM CDT [facility] 03/12/2025 11:1 5 AM CDT Marcelle Rich MD BLOOD BANK TEST ORDERABLES Final Result [facility] [address] [place] [address], [id number] * ORDER PLATELET PHERESIS, 1 Units (03/12/2025 6:46 AM CDT) Only the most recent of3 resultswithin the time period is included. UNITS ORDERED 1 03/12/2025 6:46 AM CDT [facility] BLOOD UNIT NUMBER [id number] 03/12/2025 9:57 AM CDT [facility] PRODUCT: PLT PHERESIS LEUKORED 7D BAG 2 03/12/2025 9:57 AM CDT [facility] UNIT DIVISION 00 03/12/2025 9:57 AM CDT [facility] BLOOD UNIT STATUS TRANSFUSED,FINAL 03/13/2025 6:44 AM CDT [facility] ISSUE DATE/TIME [id number] 025 6:44 AM CDT [facility] PRODUCT CODE [id number] 03/13/2025 6:44 AM CDT [facility] ABO/RH Unit AB POS 03/13/2025 6:44 AM CDT [facility] ABO/RH UNIT ISBT CODE 8400 03/13/2025 6:44 AM CDT [facility] BLOOD UNIT EXPIRATION DATE [id number] 03/13/2025 6:44 AM CDT [facility] TRANSFUSION STATUS OK TO TRANSFUSE 03/12/2025 9:57 AM CDT [facility] 03/12/2025 6:46 AM CDT Phani Sarmiento MD BLOOD BANK PRODUCT ORDERA BLES Final Result [facility] [address] [place] [address], [id number] * (ABNORMAL) BASIC METABOLIC PANEL (03/11/2025 9:42 AM CDT) Only the most recent of4 resultswithin the time period is included. SODIUM S/P/B 139 136 - 145 MMOL/L 03/11/2025 10:19 AM CDT [facility] POTASSIUM S/P/B 3.4(L) 3.5 - 5.1 MMOL/L 03/11/2025 10:19 AM CDT [facility] CHLORIDE S/P/B 106 97 - 115 MMOL/L 03/11/2025 10:19 AM [facility] CO2 27.1 21.0 - 32.0 MMOL/L 03/11/2025 10:19 AM [facility] GLUCOSE 243(H) 74 - 106 MG/DL 03/11/2025 10:19 AM [facility] BUN 15 7 - 18 MG/DL 03/11/2025 10:19 AM [facility] CREATININE S/P/B 0.90 0.55 - 1.02 MG/DL 03/11/2025 10:19 AM [facility] CALCIUM S/P/B 8.6 8.5 - 10.1 MG/DL 03/11/2025 10:19 AM [facility] ANION GAP 5.9 2.0 - 10.0 MMOL/L 03/11/2025 10:19 AM [facility] OSMOLALITY (CALC) 297 MOSM/KG 025 10:19 AM [facility] Comment:REFERENCE RANGE NOT ESTABLISHED GFR ESTIMATE 74(L) >90 ML/MIN/1. 73 M2 03/11/2025 10:19 AM [facility] GFR NOTES GFR REFERENCE S: 03/11/2025 10:19 AM [facility] Comment: THE ESTIMATED GFR IS [...] MD LABORATORY Final Result Performing Organization Address [facility] Co de Phone Number [facility] [address] [place] [address], [id number] * PHOSPHORUS, INORGANIC PHOSPHATE (03/10/2025 2:41 AM CDT) PHOSPHORUS 3.5 2.5 - 4.9 MG/DL 03/10/2025 3:34 AM CDT [facility] 03/10/2025 2:41 AM CDT Marcelle Rich MD LABORATORY Final Result Performing Organization Address [facility] Co de Phone Number [facility] [address] [place] [address], [id number] * MAGNESIUM (03/10/2025 2:41 AM CDT) MAGNESIUM 1.9 1.6 - 2.6 MG/DL 03/10/2025 3:34 AM CDT [facility] 03/10/2025 2:41 AM CDT us Marcelle Rich MD LABORATORY Final Result Performing Organization Address [facility] Co de Phone Number [facility] [address] [place] [address], [phone] * (ABNORMAL) Blood gas, venous (03/09/2025 5:27 PM CDT) PH VENOUS 7.39 7.32 - 7.42 03/09/2025 5:37 PM CDT [facility] PCO2 VENOUS 47.7 41.0 - 51.0 MMHG 03/09/2025 5:37 PM CDT [facility] PO2 VENOUS 31.9 25.0 - 40.0 MM HG 03/09/2025 5:37 PM CDT [facility] BICARB VENOUS 28.0 24 - 28 MMOL/L 03/09/2025 5:37 PM CDT [facility] TOTAL CO2 VENOUS 29.5(H) 25.0 - 29.0 MMOL/L 03/09/2025 5:37 PM CDT [facility] BASE EXCESS VENOUS 3.1(H) 0 - 2 MMOL/L 03/09/2025 5:37 PM CDT [facility] O2 SAT VENOUS 56 <75 % 03/09/2025 5:37 PM CDT [facility] 03/09/2025 5:27 PM CDT Marcelle Rich MD LABORATORY Final Result [facility] [address] [place] [address], [id number] * XR CHEST PORTABLE (03/08/2025 11:08 AM CDT) Anatomical Region Laterality Modality Chest Radiographic Aishwarya ging 03/08/2025 12:2 3 PM CDT Impressions 03/08/2025 12:24 PM CDT IMPRESSION: 1. Mild pulmonary vascular congestion. 2. No focal consolidation or pneumothorax. Ordered By: MARCELLE RICH Interpreted By: Bk Perez MD, 03/08/2025 12:23 PM Narrative 03/08/2025 12:24 PM CDT [facility] [address] [place], [place] [address] PROCEDURE: XR CHEST PORTABLE. 03/08/2025 11:06 AM. [...] Procedure Note Bk Perez MD - 03/08/[address] [address] PROCEDURE: XR CHEST PORTABLE. 03/08/2025 11:06 AM. [...] CDT) TEST NAME: LEUKEMIA LYMPHOMA EVAL TEST [id number] 03/08/2025 1:46 PM CDT [facility] SPECIMEN TYPE PERIPHERAL BLOOD EDTA, ROOM TEMP 03/08/2025 1:46 PM CDT [facility] TEST RESULT: Flexitest 1 03/12/2025 11:42 AM CDT [employer] REGGIE VÁSQUEZ Comment: Flexitest 1 CLINICAL INFORMATION: [...] staining intensity, forward scatter and side scatter. [place] A - Granulocytes Marker Percentage CD2 1 CD3 0 CD4 0 CD5 0 CD7 1 CD8 0 CD10 87 CD11c 96 CD13 91 CD19 0 CD19+CD5+ 0 CD20 0 CD23 1 CD33 3 CD34 0 CD38 2 CD45 100 CD56+CD3- 2 CD64 0 CD117 0 HLA_DR 2 Inez CD19+ 0 Lambda CD19+ 0 K/L Ratio NA [place] B - Lymphocytes Marker Percentage CD2 66 CD3 62 CD4 42 CD5 60 CD7 53 CD8 19 CD10 2 CD11c 6 CD13 0 CD19 22 CD19+CD5+ 0 CD20 22 CD23 14 CD33 0 CD34 0 CD38 46 CD45 100 CD56+CD3- 13 CD64 0 CD117 0 HLA_DR 25 Inez CD19+ 10 Lambda CD19+ 9 K/L Ratio 1.11 This test was developed and its analytical performance characteristics have been determined by [employer] [place], [place]. It has not been cleared or approved by the U.S. Food and Drug Administration. This assay has been validated pursuant to the CLIA regulations and is used for clinical purposes. NUMBER OF MARKERS: 22 Test Performed by [employer], [employer] [place], [address] [place], [place] Noe Hernandez M.D., Ph.D., Director of Laboratories , CLIA [id number] 03/08/2025 11:0 7 AM CDT Almaz Hollins MD LABORATORY Final Result [facility] [address] [place] [address], [place] [phone] [facility] [address] [place] [address], [place] [phone] * FLOW CYTOMETRY, PERIPHERAL BLD (03/08/2025 11:07 AM CDT) [facility] FLOW CYTOMETRY TEST SENT TO [facility]. RESULTS WILL DISPLAY REF LAB TEST RESULT UNDER MISC TAB WHEN FINALIZED. 03/08/2025 12:12 PM CDT [facility] 03/08/2025 11:0 7 AM CDT Almaz Hollins MD LABORATORY Final Result [facility] [address] [place] [address], [place] [phone] * MISCELLANEOUS LAB TEST (03/08/2025 11:07 AM CDT) [facility] TEST NAME: HLA TYPING FOR PLATELETS, ALLOIMMUNIZATION 03/08/2025 8:04 AM CDT [facility] TEST RESULT: SEE BLOOD BANK FOR TESTING RESULTS 03/11/2025 7:37 AM CDT [facility] 03/08/2025 11:0 7 AM CDT Almaz Hollins MD LABORATORY Final Result [facility] [address] [place] [address], [place] [phone] * (ABNORMAL) RETICULOCYTE CT, AUTO (03/07/2025 11:43 PM CDT) [facility] % RETICULOCYTE COUNT 0.3(L) 0.6 - 2.3 % 03/08/2025 1:02 AM CDT [facility] ABSOLUTE RETICULOCYTE 0.01(L) 0.02 - 0.10 x10'6/uL 03/08/2025 1:02 AM CDT [facility] IMMATURE RETIC FRACTION 5.1 3.0 - 15.9 % 03/08/2025 1:02 AM CDT [facility] RETIC HGB 37.7(H) 28.0 - 35.0 PG 03/08/2025 1:02 AM CDT [facility] 03/07/2025 11:4 3 PM CDT us Wesly Steve MD LABORATORY Final Result [facility] [address] [place] [address], [id number] * (ABNORMAL) EBV (RHONDA CAMP VIRUS) AB PANEL COMPREHENSIVE (INCL. EARLY AG D AB) (03/07/2025 11:41 PM CDT) Pathologist [facility] EBV EARLY ANTIGEN-D AB IGG 71.00(H) <9.00 U/mL 03/12/2025 7:03 PM CDT [employer] DAIJA COX Comment: The potential exists for cross-reactivity with HIV (Human Immunodeficiency Virus) which could cause a false positive EBV-EA result. U/mL Interpretation <9.00 Negative 9.00 - 10.99 Equivocal >10.99 Positive EBV VCA IGM <36.00 <36.00 U/mL 03/12/2025 7:03 PM CDT [employer] DAIJA COX Comment: U/mL Interpretation <36.00 Negative 36.00 - 43.99 Equivocal >43.99 Positive RHONDA BAR NUCLEAR ANTIGEN IGG 69.90(H) <18.00 U/mL 03/12/2025 7:03 PM CDT [facility] DAIJA COX Comment: U/mL Interpretation <18.00 Negative 18.00 - 21.99 Equivocal >21.99 Positive EBV VCA IGG 262.00(H) <18.00 U/mL 03/12/2025 7:03 PM CDT [employer] DAIJA COX Comment: U/mL Interpretation <18.00 Negative 18.00 - 21.99 Equivocal >21.99 Positive Test Performed by [employer], [address] [place], [place] Noe Hernandez M.D., Ph.D., Director of Laboratories , [facility] [id number] 03/07/2025 11:4 1 PM CDT Wesly Steve MD LABORATORY Final Result [employer] [facility] [address] [place], [place] , * [id number] ACT W/RFLX INHIBITOR (03/07/2025 11:41 PM CDT) [id number] ACTIVITY 0.79 0.68 - 1.63 IU/mL 03/10/2025 3:29 PM CDT [employer] DAIJA COX Comment: Activity levels below 0.10 IU/mL are seen in acquired and hereditary thrombotic thrombocytopenic purpura (TTP). Not all patients with TTP will exhibit low levels of [id number] activity with this assay, i.e., post bone marrow transplantation, drug-induced TTP, and mutations of ARLOIQ27 at the CUB domain. Recent plasma exchange or immunosuppressive therapy may raise the observed activity levels. Mild decreases in XTYGNX57 activity are seen in a wide variety of conditions including metastatic cancer, neonates, serious infections and cirrhosis of the liver. For more information on this test, go to http://education.[employer]/faq/JAN356 Test Performed by [employer], [facility], [address] [place], [place] Noe Hernandez M.D., Ph.D., Director of Laboratories , [facility] [id number] 03/07/2025 11:4 1 PM CDT us Wesly Steve MD LABORATORY Final Result Performing Organization Address City/[facility]/ZIP Co de Phone Number [employer] [address] , [place] [phone] * (ABNORMAL) PROCALCITONIN (PCT) (03/07/2025 11:41 PM CDT) PROCALCITONIN 2.85(H) 0.00 - 0.49 NG/ML 03/08/2025 1:14 PM CDT [facility] Comment: VALUES ABOVE 2.00 NG/ML ARE HIGHLY SUGGESTIVE OF SEPSIS OR OTHER SEVERE BACTERIAL INFECTION. 03/07/2025 11:4 1 PM CDT us Wesly Steve MD LABORATORY Final Result Performing Organization Address City/[facility] Co de Phone Number [facility] [address] [place] [address], [place] [phone] * (ABNORMAL) TSH W/REFLEX (03/07/2025 11:41 PM CDT) TSH 0.250(L) 0.358 - 3.740 uIU/ML 03/08/2025 12:47 AM CDT [facility] Comment: ASSAY PERFORMED BY CHEMILUMINESCENCE METHODOLOGY USING [employer] [facility]. PATIENT RESULTS DETERMINED BY ASSAYS USING DIFFERENT MANUFACTURERS FOR METHODS MAY NOT BE COMPARABLE. 03/07/2025 11:4 1 PM CDT us Wesly Steve MD LABORATORY Final Result Performing Organization Address [facility] Co de Phone Number [facility] [address] [place] [address], [phone] * CMV DNA QUANT REAL TIME PCR (03/07/2025 11:41 PM CDT) [facility] SPECIMEN SOURCE EDTA PLASMA 03/08/20 8:43 AM CDT [facility] CMV DNA QN PCR (BLD) Not Detected IU/mL 03/10/2025 6:53 PM CDT [facility] CMV DNA QUANT PCR (BLD) Not Detected log IU/mL 03/10/2025 6:53 PM CDT [facility] Comment: REFERENCE RANGE: NOT DETECTED For additional information, please refer to http://education.[employer]/faq/CMVandEBVPCR (This link is being provided for informational/ educational purposes only.) Test Performed by [email or web address], [facility], [address] [place] [address] Noe Hernandez M.D., Ph.D., Director of Laboratories , [facility] [id number] 03/07/2025 11:4 1 PM CDT Wesly Steve MD LABORATORY Final Result Performing Organization Address [facility] de Phone Number [employer] [address] , [place] [phone] [facility] [address] [place] [address], [place] [phone] * (ABNORMAL) IRON SATURATION PANEL (FE,IBC,%SAT) (03/07/2025 11:41 PM CDT) [facility] IRON 53 50 - 170 MCG/DL 03/08/2025 12:47 AM CDT [facility] IRON BINDING CAPACITY 202(L) 250 - 450 MCG/DL 03/08/2025 12:47 AM CDT [facility] IRON SATURATION 26 % 12:47 AM CDT [facility] Comment:REFERENCE RANGE NOT ESTABLISHED 03/07/2025 11:4 1 PM CDT us Wesly Steve MD LABORATORY Final Result Performing Organization Address City/[facility]/ZIP Co de Phone Number [facility] [address] [place] [address], [place] [phone] * VITAMIN B-12 (03/07/2025 11:41 PM CDT) Pathologist [facility] VITAMIN B12 S/P/B 511 193 - 986 PG/ML 03/08/2025 12:35 AM CDT [facility] 03/07/2025 11:4 1 PM CDT us Wesly Steve MD LABORATORY Final Result Performing Organization Address [facility] Co de Phone Number [facility] [address] [place] [address], [place] [phone] * SED RATE, ERYTHROCYTE (ESR,WSR) (03/07/2025 11:41 PM CDT) Pathologist [facility] ESR 15 0 - 20 MM/HR 03/08/2025 12:03 AM CDT [facility] 03/07/2025 11:4 1 PM CDT us Wesly Steve MD LABORATORY Final Result Performing Organization Address [facility] Co de Phone Number [facility] [address] [place] [address], [place] [phone] * (ABNORMAL) COMPREHENSIVE METABOLIC PANEL (03/07/2025 11:41 PM CDT) Pathologist [facility] SODIUM S/P/B 137 136 - 145 MMOL/L 03/08/2025 12:47 AM CDT [facility] POTASSIUM S/P/B 3.4(L) 3.5 - 5.1 MMOL/L 03/08/2025 12:47 AM CDT [facility] CHLORIDE S/P/B 107 97 - 115 MMOL/L 03/08/2025 12:47 AM CDT [facility] CO2 24.5 21.0 - 32.0 MMOL/L 03/08/2025 12:47 AM T [facility] GLUCOSE 261(H) 74 - 106 MG/DL 03/08/2025 12:47 AM T [facility] BUN 8 7 - 18 MG/DL 03/08/2025 12:47 AM T [facility] CREATININE S/P/B 0.80 0.55 - 1.02 MG/DL 03/08/2025 12:47 AM CDT [facility] CALCIUM S/P/B 8.0(L) 8.5 - 10.1 MG/DL 03/08/2025 12:47 AM T [facility] BILIRUBIN TOTAL S/P/B 0.4 0.2 - 1.0 MG/DL 03/08/2025 12:47 AM T [facility] ALKALINE PHOSPHATASE S/P/B 71 46 - 118 U/L 03/08/2025 12:47 AM CDT [facility] AST 43(H) 15 - 37 U/L 03/08/2025 12:47 AM CDT [facility] [facility] 46 13 - 56 U/L 03/08/2025 12:47 AM CDT [facility] TOTAL PROTEIN S/P/B 6.5 6.4 - 8.2 G/DL 03/08/2025 12:47 AM T [facility] ALBUMIN S/P/B 2.9(L) 3.4 - 5.0 G/DL 03/08/2025 12:47 AM CDT [facility] ANION GAP 5.5 2.0 - 10.0 MMOL/L 03/08/2025 12:47 AM CDT [facility] OSMOLALITY (CALC) 291 MOSM/KG 025 12:47 AM CDT [facility] Comment:REFERENCE RANGE NOT ESTABLISHED GFR ESTIMATE 85(L) >90 ML/MIN/1. 73 M2 03/08/2025 12:47 AM CDT [facility] GFR NOTES GFR REFERENCE S: 03/08/2025 12:47 AM CDT [facility] Comment: THE ESTIMATED GFR [...] MD LABORATORY Final Result Performing Organization Address City/State/[facility] Co de Phone Number [facility] [address] [place] [address], [phone] * (ABNORMAL) LDH, LACTATE DEHYDROGENASE (03/07/2025 11:41 PM CDT) LDH 249(H) 84 - 246 UNITS/L 03/08/2025 12:47 AM CDT [facility] 03/07/2025 11:4 1 PM CDT us Wesly Steve MD LABORATORY Final Result Performing Organization Address City/[facility]/ZIP Co de Phone Number [facility] [address] [place] [address], [phone] * (ABNORMAL) DIC PANEL (03/07/2025 11:41 PM CDT) PROTIME 12.1 9.4 - 12.5 SEC 03/08/2025 12:11 AM CDT [facility] INR 1.1 0.8 - 1.1 03/08/2025 12:11 AM CDT [facility] PTT 27.3 25.1 - 36.5 SEC 03/08/2025 12:12 AM CDT [facility] FIBRINOGEN 330 200 - 393 MG/DL 03/08/2025 12:10 AM CDT [facility] D-DIMER 932(H) 0 - 500 ng{FEU}/m L 03/08/2025 12:11 AM CDT [facility] EXCLUSION STATEMENT 03/08/2025 12:11 AM CDT [facility] Comment: D-Dimer values less than [...] - 350 x10'3/uL 03/07/2025 11:58 PM CDT [facility] 03/07/2025 11:4 1 PM CDT us Wesly Steve MD LABORATORY Final Result [facility] [address] [place] [address], [phone] * (ABNORMAL) C-REACTIVE PROTEIN (03/07/2025 11:41 PM CDT) C-REACTIVE PROTEIN 2.96(H) <0.80 mg/dL 03/08/2025 12:47 AM CDT [facility] 03/07/2025 11:4 1 PM CDT us Wesly Steve MD LABORATORY Final Result Performing Organization Address City/[facility]/ZIP Co de Phone Number [facility] [address] [place] [address], [place] [phone] * BLOOD SMEAR PERIPHERAL INTERP PHYS W/WRIT REPORT (03/07/2025 11:41 PM CDT) CBC PATHOLOGIST COMMENT SENT TO PATHOLOGIST FOR REVIEW 03/08/2025 3:04 PM CDT [facility] 03/07/2025 11:4 1 PM CDT us Wesly Steve MD LABORATORY Final Result Performing Organization Address [facility] Co de Phone Number [facility] [address] [place] [address], [place] [phone] * FOLIC ACID SERUM (03/07/2025 11:41 PM CDT) FOLATE 5.2 3.1 - 17.5 NG/ML 03/08/2025 12:35 AM CDT [facility] 03/07/2025 11:4 1 PM CDT us Wesly Steve MD LABORATORY Final Result Performing Organization Address [facility] Co de Phone Number [facility] [address] [place] [address], [place] [phone] * (ABNORMAL) THYROXINE, FREE (FT4) (03/07/2025 11:41 PM CDT) FREE T4 1.55(H) 0.76 - 1.46 NG/DL 03/08/2025 1:05 AM CDT [facility] 03/07/2025 11:4 1 PM CDT us Wesly Steve MD LABORATORY Final Result [facility] [address] [place] [address], [phone] * Pathology (03/07/2025 12:00 AM CDT) Pathologist [facility] PATHOLOGY 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 [id number] testing is pending at the time of [...] Interpretation and sign out were performed at [address], [address] [place] [address]. [facility] 03/07/2025 03/08/2025 7:5 2 AM CDT Comment:Peripheral blood us Wesly Steve MD PATHOLOGY/CYTOLOGY ORDERABLES F inal Result [facility] [address] [place] [address], [phone] from Last 3 Months Insurance [address] [place] [address] MEDICAID MEDICARE Advance Directives * Full Code (Latest Code Status on File) Date Activated Date Inactivated Comments 03/07/2025 10:49 PM 03/12/2025 8:04 PM Care Teams Assistant Professor Of Nursing Relationship Specialty Start Date End Date Reagan Fonseca MD [address] [place] [address] PCP - General FAMILY PRACTICE 01/26/25
[2025-05-23 12:45] VITALS: BP 130/70; PULSE 76; RESP 16; TEMP 36.6; O2SAT 97
[2025-05-23] MEDS: HEPARIN SODIUM LOCK FLUSH 500 UNITS/5 ML SYRINGE (12:53)
[2025-05-23 13:15] LABS: Hematocrit 34.2 % (35.0-49.0); Hemoglobin 10.9 g/dL (12.0-15.0); Immature Platelet Fraction Pct 1.8 % (1.0-7.0); Mean Corpuscular HGB Conc 31.9 g/dL (32-36); Mean Corpuscular Hemoglobin 30.3 pg (27.0-31.0); Mean Corpuscular Volume 95.0 fL (78.0-102.0); Platelet Count Result 98 K/mm3 (150-420); Red Blood Count 3.60 M/mm3 (4.20-5.40)
[2025-05-23 13:17] LABS: White Blood Count 1.4 K/mm3 (4.8-10.8)
[2025-05-23 13:21] LABS: Alanine Aminotransferase 22 U/L (6-35); Albumin Level 3.9 g/dL (3.5-5.1); Alkaline Phosphatase 67 U/L (38-126); Anion Gap 9 mmol/L (4-12); Aspartate Amino Transferase 32 U/L (14-36); Bilirubin,Total 0.3 mg/dL (0.2-1.3); Blood Urea Nitrogen 7 mg/dL (7-17); Calcium 9.0 mg/dL (8.4-10.2); Carbon Dioxide 28 mmol/L (22-30); Chloride 105 mmol/L (98-107); Estimated Glomerular Filt Rate > 60; Glucose 194 mg/dL (65-110); Osmolality Calculated 297 mOsm/kg (285-295); Potassium 3.9 mmol/L (3.4-5.0); Sodium 142 mmol/L (137-145); Total Protein 6.8 g/dL (6.3-8.2)
[2025-05-23 13:31] LABS: Band Neutrophils Percent 0 % (0-6); Basophils Absolute Manual 0.01 K/mm3 (0-0.1); Basophils Percent Manual 1 % (0-1); Eosinophils Absolute Manual 0.01 K/mm3 (0.02-0.50); Eosinophils Percent Manual 1 % (1-6); Lymphocytes Absolute Manual 0.82 K/mm3 (1.1-4.5); Lymphocytes Percent Manual 59 % (18-44); Monocytes Absolute Manual 0.01 K/mm3 (0.1-0.90); Monocytes Percent Manual 1 % (3-9); Neutrophils Absolute Manual 0.53 K/mm3 (1.3-6.7); Neutrophils Percent Manual 38 % (46-73); Total Cells Counted 100
== END 2025-05-23 12:33 | disposition home or self-care (01) ==
PROVIDERS: PCP Family Medicine; Visit Provider Internal Medicine Hematology
DX: D46.21 Refractory anemia with excess of blasts 1 (principal)
CPT/HCPCS: 36415; 36591; 80053; 85025; 85055

== ENCOUNTER 2025-06-10 10:48 | Outpatient (CLI) | payer MEDICARE, MEDICAID, SELFPAY ==
[2025-06-10 11:09] LABS: Hematocrit 34.6 % (35.0-49.0); Hemoglobin 11.2 g/dL (12.0-15.0); Mean Corpuscular HGB Conc 32.4 g/dL (32-36); Mean Corpuscular Hemoglobin 30.9 pg (27.0-31.0); Mean Corpuscular Volume 95.3 fL (78.0-102.0); Platelet Count Result 167 K/mm3 (150-420); Red Blood Count 3.63 M/mm3 (4.20-5.40)
[2025-06-10 11:11] LABS: White Blood Count 1.1 K/mm3 (4.8-10.8)
[2025-06-10 11:19] VITALS: BP 130/70; PULSE 78; RESP 14; TEMP 36.6; O2SAT 97
[2025-06-10 11:21] LABS: Alanine Aminotransferase 21 U/L (6-35); Albumin Level 3.9 g/dL (3.5-5.1); Alkaline Phosphatase 65 U/L (38-126); Anion Gap 7 mmol/L (4-12); Aspartate Amino Transferase 27 U/L (14-36); Bilirubin,Total 0.4 mg/dL (0.2-1.3); Blood Urea Nitrogen 9 mg/dL (7-17); Calcium 9.2 mg/dL (8.4-10.2); Carbon Dioxide 29 mmol/L (22-30); Chloride 106 mmol/L (98-107); Estimated Glomerular Filt Rate > 60; Glucose 155 mg/dL (65-110); Osmolality Calculated 295 mOsm/kg (285-295); Potassium 3.8 mmol/L (3.4-5.0); Sodium 142 mmol/L (137-145); Total Protein 7.7 g/dL (6.3-8.2)
[2025-06-10] MEDS: ONDANSETRON IVPB (11:30)
[2025-06-10] MEDS: SODIUM CHLORIDE 0.9% IVPB ×2 (11:30→11:57)
[2025-06-10] MEDS: SODIUM CHLORIDE 0.9% IV 250 ML 10 ML IVPB (11:30)
[2025-06-10 11:43] VITALS: BMI 30.2
[2025-06-10] MEDS: DECITABINE IVPB (11:57)
--- OUTSIDE RECORDS SUMMARY | 2025-06-10 12:02 | XMS_ITS | Encounter Summary ---
Author Organization [facility] Address [address] [place] [address] Care Team Providers Care Cooling Tower Technician Name Role Phone Reagan Fonseca MD Primary Care Provider Encounter Details Date Type Department Care Team (Late st Contact Info) Description 02/24/2019 Abstract SFL CONVERSION [address] [place] [address] , Generic Conversion, Social History Tobacco Use [...] on filedocumented in this encounter Care Teams Cooling Tower Technician Relationship Specialty Start Date End Date Reagan Fonseca MD [address] [place] [address] PCP - General FAMILY PRACTICE 01/26/25 documented as of this encounter
--- OUTSIDE RECORDS SUMMARY | 2025-06-10 12:02 | XMS_ITS | Clinical Summary ---
Author Organization [facility] Address [address] [place] [address] Care Team Providers Care Design Drafter Name Role Phone Reagan Fonseca MD Primary Care Provider [phone] Allergies Active Allergy Reactions Criticality Noted Date [...] - 04/16/2025 11:59 PM CDT Hospital Encounter [facility] Interventional Radiology [address] [place] [address] Armando Das MD Discharge Disposition: Home or Self Care (Routine Discharge) 04/16/2025 11:30 AM CDT - 04/16/2025 11:46 AM CDT Hospital Encounter [facility] Laboratory [address] [place] [address] Gavino De La Rosa MD Discharge Disposition: Home or Self Care (Routine Discharge) 04/16/2025 Travel 04/12/2025 Telephone [facility] Interventional Radiology [address] [place] [address] Jose Becerra PA-C Appointment Request 03/07/2025 9:51 PM CDT - 03/12/2025 5:58 PM CDT Hospital Encounter [facility] Neurology [address] [place] [address] Hansel Strickland MD Sheikh, Omer S, MD Wali, Neehal, MD Discharge Disposition: Home or Self Care (Routine Discharge) from Last 3 Months Social History Tobacco [...] from your doctor or pharmacy? Rarely 03/08/2025 [facility] Utilities Answer Date Recorded In the past 12 months has th e [employer], gas, oil, or water company threatened to shut off services in your [...] week 03/08/2025 How often do you attend congregational or mu-ism serv ices? Never 03/08/2025 Do you belong to any clubs o r organizations such as congregational groups, unions, fraternal or athletic groups, or [...] any time in the past 12 m [facility], were you homeless or living in a nursing home (including now)? No 03/08/2025 Comments No [...] 10:18 AM CDT ORDER PLATELET PHERESIS Routine 03/12/2025 6:46 AM CDT POCT GLUCOSE - DOCKED DEVICE Routine 03/12/2025 5:42 AM CDT CBC W/DIFF AUTOMATED Routine 03/12/2025 3:50 AM CDT POCT GLUCOSE - DOCKED DEVICE Routine 03/11/2025 8:27 PM CDT TRANSFUSE PLATELET PHERESIS Routine 03/11/2025 6:33 PM CDT POCT GLUCOSE - DOCKED DEVICE Routine 03/11/2025 4:53 PM CDT TRANSFUSE PLATELET PHERESIS Routine 03/11/2025 4:20 PM CDT ORDER PLATELET PHERESIS Routine 03/11/2025 11:05 AM CDT POCT GLUCOSE - DOCKED [...] W/DIFF AUTOMATED Routine 03/10/2025 2:41 AM CDT from Last 3 Months Results * IR PORTACATH INSERT (04/16/2025 1:44 PM CDT) Anatomical Region Laterality Modality Chest Interventional R adiology, Radiographic Imaging 04/16/2025 4:40 PM CDT Impressions 04/16/2025 4:41 PM CDT IMPRESSION: Uneventful ultrasound and fluoroscopically guided placement of right internal jugular tunneled central venous catheter and implanted power injectable port. Port is ready for immediate use. Ordered By: ARMANDO DAS Interpreted By: Gavino De La Rosa MD, 04/16/2025 4:40 PM Narrative 04/16/2025 4:[address] PM [address] [address] Procedure: Ultrasound and fluoroscopically guided placement of tunneled central venous catheter and implanted power injectable port INDICATION: Myelodysplastic syndrome TECHNIQUE: Following informed consent, the patient was placed supine on the angiographic exam table. Melrose protocol was observed to verify correct patient, [...] end-tidal CO2, and EKG. Total intraservice or dpwy-xf-wzsf sedation time: 15 minutes. Fluoroscopy: 0.2 min, Ka.r 2 mGy Procedure Note Gavino De La Rosa MD - 04/16/[address] [address] Procedure: Ultrasound and fluoroscopically guided placement of tunneledcentral venous catheter and implanted power injectable port INDICATION: Myelodysplastic syndrome TECHNIQUE: Following informed consent, the patient was placed supine onthe angiographic exam table. Melrose protocol was observed to verifycorrect patient, site, [...] end-tidal CO2, and EKG. Total intraservice or gpup-af-eufpzoueotrp time: 15 minutes. Fluoroscopy: 0.2 min, Ka.r 2 mGy IMPRESSION: Uneventful ultrasound and fluoroscopically guided placement of rightinternal jugular tunneled central venous catheter and implanted powerinjectable port. Port is ready for immediate use. Ordered By: ARMANDO DAS Interpreted By: Gavino De La Rosa MD, 04/16/2025 4:40 PM Armando Das MD INTERVENTIONAL RADIOL OGY Final Result * PROTIME/INR, VENOUS (PROTHROMBIN TIME) (04/16/2025 12:12 PM CDT) PROTIME 12.3 9.4 - 12.5 SEC 04/16/2025 12:38 PM CDT [facility] INR 1.1 0.8 - 1.1 04/16/2025 12:38 PM CDT [facility] 04/16/2025 12:1 2 PM CDT Gavino De La Rosa MD LABORATORY Final Result [facility] [address] [place] [address], [place] [phone] * (ABNORMAL) CBC W/DIFF AUTOMATED (04/16/2025 12:12 PM CDT) Only the most recent of4 resultswithin the time period is included. WBC 1.77(L) 4.00 - 10.80 x10'3/uL 04/16/2025 12:28 PM CDT [facility] RBC 3.81(L) 4.10 - 5.40 x10'6/uL 04/16/2025 12:28 PM CDT [facility] HGB 11.3(L) 12.0 - 16.0 G/DL 04/16/2025 12:28 PM CDT [facility] HCT 35.2(L) 36.0 - 47.0 % 04/16/2025 12:28 PM CDT [facility] MCV 92.4 78.0 - 100.0 FL 04/16/2025 12:28 PM CDT [facility] MCH 29.7 27.0 - 31.0 PG 04/16/2025 12:28 PM CDT [facility] MCHC 32.1(L) 33.0 - 36.0 G/DL 04/16/2025 12:28 PM CDT [facility] RDW 19.1(H) 11.5 - 14.5 % 04/16/2025 12:28 PM CDT [facility] PLT 216 150 - 350 x10'3/uL 04/16/2025 1:05 PM CDT [facility] MPV 10.4 7.4 - 10.4 FL 04/16/2025 1:05 PM CDT [facility] DIFFERENTIAL TYPE MANUAL DIFFERENTIAL 04/16/2025 1:10 PM CDT [facility] NRBC % 0.0 % 04/16/2025 1:10 PM CDT [facility] SEG NEUTROPHILS 33 % 1:10 PM CDT [facility] LYMPHOCYTES 57 % 04/16/2025 1:10 PM CDT [facility] MONOCYTES 3 % 04/16/2025 1:10 PM CDT [facility] EOSINOPHILS 3 % 04/16/2025 1:10 PM CDT [facility] BASOPHILS 3 % 04/16/2025 1:10 PM CDT [facility] BLASTS 1 % 04/16/2025 1:10 PM CDT [facility] ABS. NEUTROPHILS 0.58(L) 1.60 - 8.30 x10'3/uL 04/16/2025 1:10 PM CDT [facility] ABS. LYMPHOCYTES 1.01 0.80 - 4.70 x10'3/uL 04/16/2025 1:10 PM CDT [facility] ABS. MONOCYTES 0.05 0.00 - 1.50 x10'3/uL 04/16/2025 1:10 PM CDT [facility] ABS. EOSINOPHILS 0.05 0.00 - 0.40 x10'3/uL 04/16/2025 1:10 PM CDT [facility] ABS. BASOPHILS 0.05 0.00 - 0.20 x10'3/uL 04/16/2025 1:10 PM CDT [facility] ABS. BLASTS 0.02(H) 0.00 x10'3/uL 04/16/2025 1:10 PM CDT [facility] ABS. NUCLEATED RBC'S 0.00 0.00 - 0.01 x10'3/uL 04/16/2025 1:10 PM CDT [facility] RBC MORPHOLOGY SLIDE REVIEWED 2024 1:10 PM CDT [facility] ANISO MODERATE 04/16/2025 1:10 PM CDT [facility] POIKLO SLIGHT 04/16/2025 1:10 PM CDT [facility] OVALOCYTES PRESENT 04/16/2025 1:10 PM CDT [facility] TEAR DROP PRESENT 04/16/2025 1:10 PM CDT [facility] ACANTHOCYTES PRESENT 04/16/2025 1:10 PM CDT [facility] PLT EST. ADEQUATE 04/16/2025 1:10 PM CDT [facility] 04/16/2025 12:1 2 PM CDT Gavino De La Rosa MD LABORATORY Final Result Performing Organization Address [facility] Co de Phone Number [facility] [address] [place] [address], [phone] * TRANSFUSE RED BLOOD CELLS (03/12/2025 5:39 PM CDT) Joe Horn MD NURSING TREATMENT ORDERABLES - B LOOD ADMIN Final Result * (ABNORMAL) POCT glucose (03/12/2025 4:04 PM CDT) Only the most recent of9 resultswithin the time period is included. GLUCOSE POC 170(H) 70 - 109 03/12/2025 4:08 PM CDT [facility] 03/12/2025 4:04 PM CDT Joe Horn MD POCT ORDERABLES - DEVICE Final R esult Performing Organization Address [facility] Co de Phone Number [facility] [address] [place] [address], [place] [phone] * TRANSFUSE PLATELET PHERESIS (03/12/2025 1:41 PM CDT) Only the most recent of3 resultswithin the time period is included. Phani Sarmiento MD NURSING TREATMENT ORDERAB LES - BLOOD ADMIN Final Result * TYPE & SCREEN (03/12/2025 11:15 AM CDT) UNITS ORDERED 1 03/12/2025 11:01 AM CDT [facility] ABO/RH A POSITIVE 03/12/2025 1:38 PM CDT [facility] ANTIBODY SCREEN NEGATIVE 1:38 PM CDT [facility] SAMPLE EXPIRATION 03/15/2025,9579 03/12/2025 12:56 PM CDT [facility] BLOOD UNIT NUMBER [id number] 03/12/2025 1:38 PM CDT [facility] PRODUCT: PC LEUKOPOOR 03/12/2025 1:38 PM CDT [facility] UNIT DIVISION 00 03/12/2025 1:38 PM CDT [facility] BLOOD UNIT STATUS TRANSFUSED,FINAL 03/13/2025 6:44 AM CDT [facility] ISSUE DATE/TIME [id number] 025 6:44 AM CDT [facility] PRODUCT CODE [id number] 03/13/2025 6:44 AM CDT [facility] ABO/RH Unit A POS 03/13/2025 6:44 AM CDT [facility] ABO/RH UNIT ISBT CODE 6200 03/13/2025 6:44 AM CDT [facility] BLOOD UNIT EXPIRATION DATE [id number] 03/13/2025 6:44 AM CDT [facility] TRANSFUSION STATUS OK TO TRANSFUSE 03/12/2025 1:38 PM CDT [facility] CROSSMATCH COMPATIBLE-EXM 03/12/2025 1:38 PM CDT [facility] 03/12/2025 11:1 5 AM CDT Joe Horn MD BLOOD BANK TEST ORDERABLES Final Result [facility] [address] [place] [address], [id number] * ORDER PLATELET PHERESIS, 1 Units (03/12/2025 6:46 AM CDT) Only the most recent of2 resultswithin the time period is included. UNITS ORDERED 1 03/12/2025 6:46 AM CDT [facility] BLOOD UNIT NUMBER [id number] 03/12/2025 9:57 AM CDT [facility] PRODUCT: PLT PHERESIS LEUKORED 7D BAG 2 03/12/2025 9:57 AM CDT [facility] UNIT DIVISION 00 03/12/2025 9:57 AM CDT [facility] BLOOD UNIT STATUS TRANSFUSED,FINAL 03/13/2025 6:44 AM CDT [facility] ISSUE DATE/TIME [id number] 025 6:44 AM CDT [facility] PRODUCT CODE [id number] 03/13/2025 6:44 AM CDT [facility] ABO/RH Unit AB POS 03/13/2025 6:44 AM CDT [facility] ABO/RH UNIT ISBT CODE 8400 03/13/2025 6:44 AM CDT [facility] BLOOD UNIT EXPIRATION DATE [id number] 03/13/2025 6:44 AM CDT [facility] TRANSFUSION STATUS OK TO TRANSFUSE 03/12/2025 9:57 AM CDT [facility] 03/12/2025 6:46 AM CDT Phani Sarmiento MD BLOOD BANK PRODUCT ORDERA BLES Final Result [facility] [address] [place] [address], [id number] * (ABNORMAL) BASIC METABOLIC PANEL (03/11/2025 9:42 AM CDT) Only the most recent of2 resultswithin the time period is included. SODIUM S/P/B 139 136 - 145 MMOL/L 03/11/2025 10:19 AM CDT [facility] POTASSIUM S/P/B 3.4(L) 3.5 - 5.1 MMOL/L 03/11/2025 10:19 AM [facility] CHLORIDE S/P/B 106 97 - 115 MMOL/L 03/11/2025 10:19 AM [facility] CO2 27.1 21.0 - 32.0 MMOL/L 03/11/2025 10:19 AM [facility] GLUCOSE 243(H) 74 - 106 MG/DL 03/11/2025 10:19 AM [facility] BUN 15 7 - 18 MG/DL 03/11/2025 10:19 AM [facility] CREATININE S/P/B 0.90 0.55 - 1.02 MG/DL 03/11/2025 10:19 AM [facility] CALCIUM S/P/B 8.6 8.5 - 10.1 MG/DL 03/11/2025 10:19 AM [facility] ANION GAP 5.9 2.0 - 10.0 MMOL/L 03/11/2025 10:19 AM [facility] OSMOLALITY (CALC) 297 MOSM/KG 025 10:19 AM [facility] Comment:REFERENCE RANGE NOT ESTABLISHED GFR ESTIMATE 74(L) >90 ML/MIN/1. 73 M2 03/11/2025 10:19 AM [facility] GFR NOTES GFR REFERENCE S: 03/11/2025 10:19 AM [facility] Comment: THE ESTIMATED [...] <15 ml/min/1.73 m2 03/11/2025 9:42 AM CDT Joe Horn MD LABORATORY Final Result Performing Organization Address [facility] Co de Phone Number [facility] [address] [place] [address], [phone] * PHOSPHORUS, INORGANIC PHOSPHATE (03/10/2025 2:41 AM CDT) PHOSPHORUS 3.5 2.5 - 4.9 MG/DL 03/10/2025 3:34 AM CDT [facility] 03/10/2025 2:41 AM CDT Joe Horn MD LABORATORY Final Result Performing Organization Address [facility] de Phone Number [facility] [address] [place] [address], [id number] * MAGNESIUM (03/10/2025 2:41 AM CDT) MAGNESIUM 1.9 1.6 - 2.6 MG/DL 03/10/2025 3:34 AM CDT [facility] 03/10/2025 2:41 AM CDT Joe Horn MD LABORATORY Final Result Performing Organization Address [facility] de Phone Number [facility] [address] [place] [address], [phone] from Last 3 Months Insurance [address] [place] [id number] MEDICAID MEDICARE Advance Directives * Full Code (Latest Code Status on File) Date Activated Date Inactivated Comments 03/07/2025 10:49 PM 03/12/2025 8:04 PM Care Teams Design Drafter Relationship Specialty Start Date End Date Reagan Fonseca MD [address] [place] [address] PCP - General FAMILY PRACTICE 01/26/25
--- OUTSIDE RECORDS SUMMARY | 2025-06-10 12:02 | XMS_ITS | Encounter Summary ---
Author Organization [facility] Address [address] [place] [address] Care Team Providers Care Church Worker Name Role Phone Reagan Fonseca MD Primary Care Provider [phone] Encounter Details Date Type Department Care Team (Late st Contact Info) Description 12/03/2017 Abstract [facility] CONVERSION [address] [place] [address] , Generic Conversion, Social History Tobacco Use [...] on filedocumented in this encounter Care Teams Church Worker Relationship Specialty Start Date End Date Reagan Fonseca MD [address] [place] [address] PCP - General FAMILY PRACTICE 01/26/25 documented as of this encounter
[2025-06-10] MEDS: HEPARIN SODIUM LOCK FLUSH 500 UNITS/5 ML SYRINGE IV PUSH (12:59)
[2025-06-10 13:10] VITALS: BP 123/70; PULSE 78; RESP 14; TEMP 36.6; O2SAT 98
--- NOTE | 2025-06-10 13:17 | PC.NURSE ---
Tolerated Decitabine cycle 5 day 1 infusion well. SEE MAR/patient care notes.
== END 2025-06-10 10:49 | disposition home or self-care (01) ==
PROVIDERS: PCP Family Medicine; Visit Provider Internal Medicine Hematology
DX: Z51.11 Encounter for antineoplastic chemotherapy (principal); D46.21 Refractory anemia with excess of blasts 1
CPT/HCPCS: 36415; 36591; 80053; 85027; 96367; 96413; J0894; J2405; J7050

== ENCOUNTER 2025-06-11 10:44 | Outpatient (CLI) | payer MEDICARE, MEDICAID, SELFPAY ==
[2025-06-11] MEDS: SODIUM CHLORIDE 0.9% IV 250 ML 10 ML IVPB (11:00)
[2025-06-11] MEDS: SODIUM CHLORIDE 0.9% IVPB ×2 (11:00→11:41)
[2025-06-11] MEDS: ONDANSETRON IVPB (11:00)
[2025-06-11 11:02] VITALS: BP 134/75; PULSE 78; RESP 14; TEMP 36.6; O2SAT 97; BMI 30.3
[2025-06-11] MEDS: DECITABINE IVPB (11:41)
[2025-06-11] MEDS: HEPARIN SODIUM LOCK FLUSH 500 UNITS/5 ML SYRINGE IV PUSH (12:37)
[2025-06-11 12:59] VITALS: BP 130/70; PULSE 78; RESP 14; TEMP 36.5; O2SAT 97
--- NOTE | 2025-06-11 12:59 | PC.NURSE ---
Tolerated cycle 5 day 2 of Decitabine tx infusion well. SEE MAR/patient care notes.
== END 2025-06-11 10:45 | disposition home or self-care (01) ==
PROVIDERS: PCP Family Medicine; Visit Provider Internal Medicine Hematology
DX: Z51.11 Encounter for antineoplastic chemotherapy (principal); D46.21 Refractory anemia with excess of blasts 1
CPT/HCPCS: 96367; 96413; J0894; J2405; J7050

== ENCOUNTER 2025-06-12 10:46 | Outpatient (CLI) | payer MEDICARE, MEDICAID, SELFPAY ==
[2025-06-12] MEDS: SODIUM CHLORIDE 0.9% IV 250 ML 10 ML IVPB (11:00)
[2025-06-12] MEDS: ONDANSETRON INJ 16 MG in SODIUM CHLORIDE 0.9% IV 50 ML 150 MG IVPB (11:10)
[2025-06-12 11:20] VITALS: BP 145/95; PULSE 68; RESP 14; TEMP 36.6; O2SAT 96; BMI 30.2
[2025-06-12] MEDS: SODIUM CHLORIDE 0.9% IVPB (11:40)
[2025-06-12] MEDS: DECITABINE IVPB (11:40)
[2025-06-12] MEDS: HEPARIN SODIUM LOCK FLUSH 500 UNITS/5 ML SYRINGE IV PUSH (12:48)
[2025-06-12 12:53] VITALS: BP 139/70; PULSE 78; RESP 14; TEMP 36.6; O2SAT 97
--- NOTE | 2025-06-12 13:24 | PC.NURSE ---
Patient tolerated cycle 5 day 3 Decitabine treatment infusion well. Denied nausea upon discharge. SEE MAR/patient care notes.
== END 2025-06-12 10:47 | disposition home or self-care (01) ==
PROVIDERS: PCP Family Medicine; Visit Provider Internal Medicine Hematology
DX: Z51.11 Encounter for antineoplastic chemotherapy (principal); D46.21 Refractory anemia with excess of blasts 1
CPT/HCPCS: 96367; 96413; J0894; J2405; J7050

== ENCOUNTER 2025-06-13 10:33 | Outpatient (CLI) | payer MEDICARE, MEDICAID, SELFPAY ==
[2025-06-13 10:45] VITALS: BP 137/80; PULSE 79; RESP 14; TEMP 36.6; O2SAT 96; BMI 30.2
[2025-06-13] MEDS: SODIUM CHLORIDE 0.9% IV 250 ML 10 ML IVPB (11:00)
[2025-06-13] MEDS: SODIUM CHLORIDE 0.9% IVPB ×2 (11:10→11:35)
[2025-06-13] MEDS: ONDANSETRON IVPB (11:10)
[2025-06-13] MEDS: DECITABINE IVPB (11:35)
[2025-06-13] MEDS: HEPARIN SODIUM LOCK FLUSH 500 UNITS/5 ML SYRINGE IV PUSH (12:38)
[2025-06-13 13:31] VITALS: BP 146/80; PULSE 78; RESP 16; TEMP 36.6; O2SAT 97
--- NOTE | 2025-06-13 13:33 | PC.NURSE ---
Patient tolerated Decitabine treatment well. SEE MAR/patient care notes.
== END 2025-06-13 10:34 | disposition home or self-care (01) ==
PROVIDERS: PCP Family Medicine; Visit Provider Internal Medicine Hematology
DX: Z51.11 Encounter for antineoplastic chemotherapy (principal); D46.21 Refractory anemia with excess of blasts 1
CPT/HCPCS: 96367; 96413; J0894; J2405; J7050

== ENCOUNTER 2025-06-14 10:50 | Outpatient (CLI) | payer MEDICARE, MEDICAID, SELFPAY ==
--- OUTSIDE RECORDS SUMMARY | 2025-06-14 10:56 | XMS_ITS | Encounter Summary ---
Author Organization [facility] Address [address] [place] [address] Care Team Providers Care Wastewater Treatment Plant Chemist Name Role Phone Reagan Fonseca MD Primary Care Provider [phone] Encounter Details Date Type Department Care Team (Late st Contact Info) Description 02/24/2019 Abstract SFL CONVERSION [address] [place] [address] , Generic Conversion, Social History Tobacco Use [...] on filedocumented in this encounter Care Teams Wastewater Treatment Plant Chemist Relationship Specialty Start Date End Date Reagan Fonseca MD [address] [place] [address] PCP - General FAMILY PRACTICE 01/26/25 documented as of this encounter
--- OUTSIDE RECORDS SUMMARY | 2025-06-14 10:56 | XMS_ITS | Clinical Summary ---
Author Organization [facility] Address [address] [place] [address] Care Team Providers Care Engineering Technical Specialist Name Role Phone Reagan Fonseca MD Primary Care Provider [phone] Allergies Active Allergy Reactions Criticality Noted Date [...] - 04/16/2025 11:59 PM CDT Hospital Encounter [facility] [address] [place] [address] Armando Das MD Discharge Disposition: Home or Self Care (Routine Discharge) 04/16/2025 11:30 AM CDT - 04/16/2025 11:46 AM T Hospital Encounter [facility] [address] [place] [address] Gavino De La Rosa MD Discharge Disposition: Home or Self Care (Routine Discharge) 04/16/2025 Travel 04/12/2025 Telephone [facility] [address] [place] [address] Jose Becerra [place] Appointment Request from Last 3 Months Social History Tobacco [...] from your doctor or pharmacy? Rarely 03/08/2025 [employer] Utilities Answer Date Recorded In the past 12 months has th e [email or web address], gas, oil, or water [employer] threatened to shut off services in your [...] week 03/08/2025 How often do you attend jehovah's witness or mandaen serv ices? Never 03/08/2025 Do you belong to any clubs o r organizations such as jehovah's witness groups, unions, fraternal or athletic groups, or [...] declined 03/08/2025 [facility] - [...] any time in the past 12 m [facility], were you homeless or living in a long-term (including now)? No 03/08/2025 Comments No Sex [...] 12:12 PM CDT Myelodysplastic syndrome (CMS/HCC HHS/HCC) from Last 3 Months Results * IR [...] 4:40 PM Narrative 04/16/2025 4:41 PM CDT [address] [address] Procedure: Ultrasound and fluoroscopically guided placement of tunneled central venous catheter and implanted power injectable port INDICATION: Myelodysplastic syndrome TECHNIQUE: Following informed consent, the patient was placed supine on the angiographic exam table. [place] protocol was observed to verify correct patient, [...] end-tidal CO2, and EKG. Total intraservice or hwth-bi-rmvq sedation time: 15 minutes. Fluoroscopy: 0.2 min, Ka.r 2 mGy Procedure Note Gavino De La Rosa MD - 04/16/[address] [address] Procedure: Ultrasound and fluoroscopically guided placement of tunneledcentral venous catheter and implanted power injectable port INDICATION: Myelodysplastic syndrome TECHNIQUE: Following informed consent, the patient was placed supine onthe angiographic exam table. [place] protocol was observed to verifycorrect patient, site, [...] end-tidal CO2, and EKG. Total intraservice or xlkw-mz-ozcqzdxilnrw time: 15 minutes. Fluoroscopy: 0.2 min, Ka.r 2 mGy IMPRESSION: Uneventful ultrasound and fluoroscopically guided placement of rightinternal jugular tunneled central venous catheter and implanted powerinjectable port. Port is ready for immediate use. Ordered By: ARMANDO DAS Interpreted By: Gavino De La Rosa MD, 04/16/2025 4:40 PM us Armando Das MD INTERVENTIONAL RADIOL OGY Final Result * PROTIME/INR, VENOUS (PROTHROMBIN TIME) (04/16/2025 12:12 PM CDT) Pathologist [facility] PROTIME 12.3 9.4 - 12.5 SEC 04/16/2025 12:[address] [facility] INR 1.1 0.8 - 1.1 04/16/2025 12:[address] [facility] 04/16/2025 12:1 2 PM CDT Gavino De La Rosa MD LABORATORY Final Result [facility] [address] [place] [address], [id number] * (ABNORMAL) CBC W/DIFF AUTOMATED (04/16/2025 12:12 PM CDT) [facility] WBC 1.77(L) 4.00 - 10.80 x10'3/uL 04/16/2025 12:[address] [facility] RBC 3.81(L) 4.10 - 5.40 x10'6/uL 04/16/2025 12:[address] [facility] HGB 11.3(L) 12.0 - 16.0 G/DL 04/16/2025 12:[address] [facility] HCT 35.2(L) 36.0 - 47.0 % 04/16/2025 12:[address] [facility] MCV 92.4 78.0 - 100.0 FL 04/16/2025 12:[address] [facility] MCH 29.7 27.0 - 31.0 PG 04/16/2025 12:[address] [facility] MCHC 32.1(L) 33.0 - 36.0 G/DL 04/16/2025 12:[address] [facility] RDW 19.1(H) 11.5 - 14.5 % 04/16/2025 12:[address] [facility] PLT 216 150 - 350 x10'3/uL 04/16/2025 1:[address] [facility] MPV 10.4 7.4 - 10.4 FL 04/16/2025 1:[address] [facility] DIFFERENTIAL TYPE MANUAL DIFFERENTIAL 04/16/2025 1:[address] [facility] NRBC % 0.0 % 04/16/2025 1:[address] [facility] SEG NEUTROPHILS 33 % 1:[address] [facility] LYMPHOCYTES 57 % 04/16/2025 1:[address] [facility] MONOCYTES 3 % 04/16/2025 1:[address] [facility] EOSINOPHILS 3 % 04/16/2025 1:[address] [facility] BASOPHILS 3 % 04/16/2025 1:[address] [facility] BLASTS 1 % 04/16/2025 1:[address] [facility] ABS. NEUTROPHILS 0.58(L) 1.60 - 8.30 x10'3/uL 04/16/2025 1:[address] [facility] ABS. LYMPHOCYTES 1.01 0.80 - 4.70 x10'3/uL 04/16/2025 1:[address] [facility] ABS. MONOCYTES 0.05 0.00 - 1.50 x10'3/uL 04/16/2025 1:[address] [facility] ABS. EOSINOPHILS 0.05 0.00 - 0.40 x10'3/uL 04/16/2025 1:[address] [facility] ABS. BASOPHILS 0.05 0.00 - 0.20 x10'3/uL 04/16/2025 1:[address] [facility] ABS. BLASTS 0.02(H) 0.00 x10'3/uL 04/16/2025 1:[address] [facility] ABS. NUCLEATED RBC'S 0.00 0.00 - 0.01 x10'3/uL 04/16/2025 1:[address] [facility] RBC MORPHOLOGY SLIDE REVIEWED 2024 1:[address] [facility] ANISO MODERATE 04/16/2025 1:[address] [facility] POIKLO SLIGHT 04/16/2025 1:[address] [facility] OVALOCYTES PRESENT 04/16/2025 1:[address] [facility] TEAR DROP PRESENT 04/16/2025 1:[address] [facility] ACANTHOCYTES PRESENT 04/16/2025 1:[address] [facility] PLT EST. ADEQUATE 04/16/2025 1:[address] [facility] 04/16/2025 12:1 2 PM CDT Gavino De La Rosa MD LABORATORY Final Result [facility] [address] [place] [address], [id number] from Last 3 Months Insurance [address] [place] [address] MEDICAID MEDICARE Advance Directives * Full Code (Latest Code Status on File) Date Activated Date Inactivated Comments 03/07/2025 10:49 PM 03/12/2025 8:04 PM Care Teams Engineering Technical Specialist Relationship Specialty Start Date End Date Reagan Fonseca MD [address] [place] [address] PCP - General FAMILY PRACTICE 01/26/25
--- OUTSIDE RECORDS SUMMARY | 2025-06-14 10:56 | XMS_ITS | Encounter Summary ---
Author Organization [facility] Address [address] [place] [id number] Care Team Providers Care Library Circulation Technician Name Role Phone Reagan Fonseca MD Primary Care Provider [phone] Encounter Details Date Type Department Care Team (Late st Contact Info) Description 12/03/2017 Abstract [facility] CONVERSION [address] [place] [address] , Generic Conversion, Social History Tobacco Use [...] on filedocumented in this encounter Care Teams Library Circulation Technician Relationship Specialty Start Date End Date Reagan Fonseca MD [address] [place] [address] PCP - General FAMILY PRACTICE 01/26/25 documented as of this encounter
[2025-06-14 11:00] VITALS: BP 140/76; PULSE 80; RESP 16; TEMP 36.6; O2SAT 96
[2025-06-14 11:05] VITALS: BMI 30.2
[2025-06-14] MEDS: SODIUM CHLORIDE 0.9% IV 250 ML 10 ML IVPB (11:10)
[2025-06-14] MEDS: ONDANSETRON IVPB (11:15)
[2025-06-14] MEDS: SODIUM CHLORIDE 0.9% IVPB ×2 (11:15→11:35)
[2025-06-14] MEDS: DECITABINE IVPB (11:35)
[2025-06-14] MEDS: HEPARIN SODIUM LOCK FLUSH 500 UNITS/5 ML SYRINGE IV PUSH (12:44)
[2025-06-14 12:46] VITALS: BP 143/80; PULSE 78; RESP 16; TEMP 36.6; O2SAT 97
--- NOTE | 2025-06-14 12:47 | PC.NURSE ---
Tolerated Decitabine infusion well. SEE MAR/patient care list
== END 2025-06-14 10:51 | disposition home or self-care (01) ==
PROVIDERS: PCP Family Medicine; Visit Provider Internal Medicine Hematology
DX: Z51.11 Encounter for antineoplastic chemotherapy (principal); D46.21 Refractory anemia with excess of blasts 1
CPT/HCPCS: 96367; 96413; J0894; J2405; J7050

== ENCOUNTER 2025-06-28 18:40 | Emergency (ER) | payer MEDICARE, MEDICAID, SELFPAY ==
[2025-06-28] VITALS (8 sets, daily range): BP systolic 159–182; BP diastolic 69–161; PULSE 65–76; RESP 12–21; TEMP 36.6; O2SAT 95–98
--- NOTE | ~2025-06-28 | XR_ITS ---
EXAMINATION: XR chest 1V portable DATE: 06/28/2025 19:16 INDICATION: Sternal chest pain TECHNIQUE: frontal view of the chest was obtained. COMPARISON: Chest radiograph and CT dated 03/07/[address] dated 03/28/2025 FINDINGS: The lungs remain clear with no focal airspace opacities, pulmonary edema, pleural effusion or pneumothorax. The cardiomediastinal silhouette is normal. Right internal jugular central venous port catheter with distal tip at the superior cavoatrial junction. IMPRESSION: 1. No acute cardiopulmonary disease. Reviewed, dictated and finalized at location A.
--- NOTE | 2025-06-28 18:58 | ECG_ITS ---
Test Date: 2025-06-28 19:08:49 Measurements Intervals Jermyn Rate: 76 P: 65 FL: 128 QRS: 18 QRSD: 96 T: 92 QT: 391 QTc: 440 Interpretive Statements SINUS RHYTHM INCOMPLETE RIGHT BUNDLE BRANCH BLOCK NONSPECIFIC ST & T-WAVE ABNORMALITY- DIFFUSE LEADS BASELINE ARTIFACT- I, II, III, AVR, AVL, AVF, V1, V4-V6 BORDERLINE ECG Compared to ECG 03/28/2025 10:47:57 No significant changes Electronically Signed On 06-29-2025 09:02:35 CDT by Escobar Bonilla D.O.
--- NOTE | 2025-06-28 19:09 | PC.NURSE ---
1899 report to rafael loredo
[2025-06-28 19:10] LABS: Hematocrit 35.6 % (35.0-49.0); Hemoglobin 12.2 g/dL (12.0-15.0); Immature Platelet Fraction Pct 1.8 % (1.0-7.0); Mean Corpuscular HGB Conc 34.3 g/dL (32-36); Mean Corpuscular Hemoglobin 30.8 pg (27.0-31.0); Mean Corpuscular Volume 89.9 fL (78.0-102.0); Platelet Count Result 102 K/mm3 (150-420); Red Blood Count 3.96 M/mm3 (4.20-5.40)
[2025-06-28 19:13] LABS: White Blood Count 1.8 K/mm3 (4.8-10.8)
[2025-06-28 19:22] LABS: INR 1.0; Prothrombin Time 10.7 Seconds (9.50-12.1)
--- NOTE | 2025-06-28 19:24 | ED_ITS ---
HPI - Weakness General Chief complaint: Abdominal Pain Stated complaint: weakness with chemo Time Seen by Provider: 06/28/25 19:09 Source: patient and family Mode of arrival: ambulatory Limitations: no limitations History of Present Illness HPI Narrative: 60-year-old female woke up with a history of diabetes mellitus, COPD, myelodysplastic syndrome with neutropenia on acyclovir and posaconazole, on chemotherapy presents to the ED with -- abdominal pain. Patient has nausea but no vomiting. No radiation of the pain. No exacerbating or relieving factors. She has had abdominal pain off and on. -- Chest pressure. No chest pain. -- Chronic shortness of breath -- decreased oral intake/ dry mouth -- generalized weakness MD Complaint: generalized weakness Onset (ago): day(s) Duration: constant Location: generalized Migration: none Relieving factors: none Exacerbating factors: none Associated symptoms: denies other symptoms Related Data Home Medications ?Medication ?Instructions ?Recorded ?Confirmed ?Last Taken ?Type albuterol sulfate 90 mcg/actuation 90 mcg inhalation Q 6H PRN SOB 05/24/24 06/14/25 Unknown History aerosol inhaler omeprazole 40 mg capsule,delayed 40 mg PO DAILY 06/14/25 Unknown History release alprazolam 0.25 mg tablet 0.25 mg PO DAILY PRN anxiety 02/04/25 06/14/25 Unknown History escitalopram oxalate 10 mg tablet 10 mg PO DAILY 02/0406/14/25 Unknown History oxycodone 5 mg tablet 5 mg PO Q6H PRN pain 5 06/14/25 Unknown History apixaban 5 mg (74 tabs) tablets in 5 mg PO Q12H 06/14/25 Unknown History a dose pack (Eliquis DVT-PE Treat 30D Start) ondansetron 8 mg disintegrating 8 mg translingual Q8H PRN nausea 05/02/25 06/14/25 Unknown History tablet and vomiting prochlorperazine maleate 10 mg 10 mg PO Q8H PRN nausea and 05/02/25 06/14/25 Unknown History tablet vomiting acyclovir 400 mg tablet 400 mg PO DAILY 06/14/25 Unknown History posaconazole 100 mg tablet,delayed 300 mg PO DAILY 06/14/25 Unknown History release Allergies Allergy/AdvReac Type Severity Reaction Status Date / Time Penicillins Allergy Hives Verified 06/28/25 19:13 codeine AdvReac Nausea Verified 06/28/25 19:13 Review of Systems 2 Review of Systems: All systems reviewed & are unremarkable except as noted in HPI and below Constitutional: Constitutional: Reports as per HPI, Reports no additional constitutional complaints and Reports weakness Eyes: Eyes: Reports as per HPI and Reports no additional eye complaints ENT: Reports system reviewed and no additional complaints, except as documented Cardiovascular: Cardiovascular: Reports as per HPI, Reports no additional cardiovascular complaints and Reports chest pain Respiratory: Respiratory: Reports as per HPI, Reports no additional respiratory complaints and Reports dyspnea Gastrointestinal: Gastrointestinal: Reports as per HPI, Reports no additional gastrointestinal complaints and Reports abdominal pain Genitourinary: Genitourinary: Reports no additional female genitourinary complaints Musculoskeletal: Musculoskeletal: Reports no additional musculoskeletal complaints and Reports as per HPI Integumentary/Breasts: Skin/Breast: Reports system reviewed and no additional complaints, except as docu and Reports as per HPI Neurologic: Reports system reviewed and no additional complaints, except as documented and Reports as per HPI Psychiatric: Psychiatric: Reports no additional psychiatric complaints, Reports as per HPI and Reports anxiety Endocrine: Endocrine: Reports no additional endocrine complaints and Reports as per HPI Hematologic/Lymphatic: Hematologic/Lymphatic: Reports no additional hematologic/lymphatic complaints and Reports as per HPI Allergic/Immunologic: Allergic/Immunologic: Reports no additional allergic/immunologic complaints and Reports as per HPI [facility] Past Medical History Medical History MDS (myelodysplastic syndrome) Abdominal pain Bronchitis COPD (chronic obstructive pulmonary disease) Type 2 diabetes mellitus Social History Social History Smoking packs per day: 1.5 Smoking cigarettes per day: 30.0 Years smoked: 35 Smoking pack-years: 52.50 Smoking status: Current every day smoker Tobacco type: cigarettes Second hand tobacco smoke exposure: Yes Alcohol intake: never Substance use: never Substance use type: does not use Do You Feel Safe in your Home?: Yes Lack of Transportation: No Lack of Food: Never True Current Housing: I Have Housing Concerned About Future Housing: No Difficulty Paying Gas/Electric Bills: No Difficulty Paying for Meds: No Currently Unemployed: No Education: Grade School Difficulty w/ Childcare or Family Care: No Living arrangements: with family Spiritual care concerns: No Exam 2 Narrative: blood pressure is 182/86. Currently it is 159/77. Oxygen saturation of 97% on room air. Afebrile with a temperature of 36.6 Const: General: no acute distress Orientation/consciousness: patient oriented x3 Limitations: no limitations HENMT: Head: normal to inspection Ears: external ears normal F hunter/Nose/Sinus: Normal external nose present Face and sinus: normal facial exam Mouth: Yes Normal oral and palatal mucosa present Throat: posterior oropharynx normal Eyes: Conjunctivae: conjunctivae normal Pupils: Equal, round and reactive pupils present EOM: EOMs intact bilaterally Direct Ophthalmoscopy: no photophobia Neck: Neck: normal visual inspection, no lymphadenopathy and no meningeal signs Chest: Chest palpation & inspection: normal inspection of the chest Resp: Effort & Inspection: normal respiratory effort Auscultation: d iminished lung sounds Cardio: Rate: regular rate Rhythm: regular rhythm GI: GI Palp: Yes Soft to palpation Auscultation: normal bowel sounds O ther: no tenderness/ rigidity /rebound Back/Spine/Pelvis: Back: no CVA tenderness Skin: General skin exam: normal color Rashes: no rashes Wounds: no wounds Neuro: General: patient oriented x3, moves all extremities, no meningeal signs, no focal motor deficits and CN's II-XI intact bilaterally Cranial nerves: Yes Nystagmus not present Speech: normal speech Extrem: General: normal to inspection and no clubbing, cyanosis or edema Psych: Mental Status: mental status grossly normal Affect: normal affect Attitude: cooperative Course Course Emergency Course: generalized weakness status post Delcitabine neutropenia neutrophil count of 648. Shortness of breath-- patient has a saturation of 96% on room air. Chest x- ray is unremarkable. Chest - pressure. Patient had an EKG which revealed normal sinus rhythm. Nonspecific ST-T changes. No ST elevation. Vital Signs Vital signs: Vital Signs Temperature 36.6 C 06/28/25 18:40 Pulse Rate 76 06/28/25 18:40 Respiratory Rate 20 06/28/25 18:40 Blood Pressure 182/86 H 06/28/25 18:40 Pulse Oximetry 97 06/28/25 18:40 Oxygen Delivery Room Air 06/28/25 18:40 Temperature 36.6 C 10/10/25 18:40 Pulse Rate 76 06/28/25 18:40 Respiratory Rate 20 06/28/25 18:40 Blood Pressure 182/86 H 06/28/25 18:40 Pulse Oximetry 97 06/28/25 18:40 Oxygen Delivery Room Air 06/28/25 18:40 MDM - Weakness MDM Narrative Medical decision making narrative: generalized weakness myelodysplastic syndrome with neutropenia Differential Diagnosis Differential diagnosis: Likely hypoglycemia and sepsis Medical Records Attestation: I reviewed the patient's medical records. Lab Data Attestation: I reviewed the patient's lab results. 06/28/25 19:04 06/28/25 19:04 Labs: Lab Results 06/28/25 Range/Units 19:04 WBC 1.8 L* (4.8-10.8) K/mm3 RBC 3.96 L (4.20-5.40) M/mm3 Hgb 12.2 (12.0-15.0) g/dL Hct 35.6 (35.0-49.0) % MCV 89.9 (78.0-102.0) fL MCH 30.8 (27.0-31.0) pg MCHC 34.3 (32-36) g/dL RDW 15.0 H (11.6-14.4) % Plt Count 102 L (150-420) K/mm3 MPV 9.7 (9.2-11.8) fl Immature Gran % (Auto) Not Reportable Neut % (Auto) Not Reportable Lymph % (Auto) Not Reportable [place] % (Auto) Not Reportable Eos % (Auto) Not Reportable Baso % (Auto) Not Reportable Lymph # (Auto) Not Reportable [place] # (Auto) Not Reportable Eos # (Auto) Not Reportable Baso # (Auto) Not Reportable Abs Immat Gran (auto) Not Reportable Absolute Neuts (auto) Not Reportable Absolute Nucleated RBC Not Reportable Total Counted 100 Neutrophils % (Manual) 36 L (46-73) % Band Neutrophils % 0 (0-6) % Lymphocytes % (Manual) 61 H (18-44) % Monocytes % (Manual) 1 L (3-9) % Eosinophils % (Manual) 1 (1-6) % Basophils % (Manual) 1 (0-1) % Nucleated RBC % Not Reportable Abs Neuts (Manual) 0.64 L (1.3-6.7) K/mm3 Abs Lymphs (Manual) 1.09 L (1.1-4.5) K/mm3 Abs Monocytes (Manual) 0.01 L (0.1-0.90) K/mm3 Absolute Eos (Manual) 0.01 L (0.02-0.50) K/mm3 Abs Basophils (Manual) 0.01 (0-0.1) K/mm3 Platelet Estimate Decreased (Adequate) % Immature Plt Fraction 1.8 (1.0-7.0) % Schistocytes None seen PT 10.7 (9.50-12.1) Seconds INR 1.0 Sodium 144 (137-145) mmol/L Potassium 3.4 (3.4-5.0) mmol/L Chloride 106 (98-107) mmol/L Carbon Dioxide 30 (22-30) mmol/L Anion Gap 8 (4-12) mmol/L BUN 7 (7-17) mg/dL Creatinine 0.70 (0.7-1.0) mg/dL Estim Creat Clear Calc 85 ml/min Estimated GFR > 60 (59 - ) Glucose 118 H (65-110) mg/dL Calculated Osmolality 297 H (285-295) mOsm/kg Lactic Acid 0.7 (0.4-2.0) mmol/L Calcium 9.3 (8.4-10.2) mg/dL Total Bilirubin 0.6 (0.2-1.3) mg/dL AST 33 (14-36) U/L ALT 24 (6-35) U/L Alkaline Phosphatase 91 (38-126) U/L Total Protein 8.2 (6.3-8.2) g/dL Albumin 4.1 (3.5-5.1) g/dL ECG Data EKG #1: ECG completion date: 06/28/25 ECG completion time: 19:08 Interpretation: Normal sinus rhythm. Normal axis. Nonspecific ST-T changes. No ST elevation. Discharge Plan Discharge Clinical Impression: Weakness generalized, Myelodysplastic syndrome Neutropenia Qualifiers: Neutropenia type: secondary to cancer chemotherapy Qualified Code(s): D70.1 - Agranulocytosis secondary to cancer chemotherapy Patient Disposition: Home Condition: Stable Instructions: Antibiotic Form, Weakness (ED), Chemo Induced Nausea and Vomiting (ED) Patient Language: Latvian Prescriptions: No Action alprazolam 0.25 mg tablet 0.25 mg PO DAILY PRN (Reason: anxiety) escitalopram oxalate 10 mg tablet 10 mg PO DAILY oxycodone 5 mg tablet 5 mg PO Q6H PRN (Reason: pain) acyclovir 400 mg tablet 400 mg PO DAILY posaconazole 100 mg tablet,delayed release (DR/EC) 300 mg PO DAILY omeprazole 40 mg capsule,delayed release(DR/EC) 40 mg PO DAILY albuterol sulfate 90 mcg/actuation HFA aerosol inhaler 90 mcg INHALATION Q6H PRN (Reason: SOB) fexofenadine [Allergy Relief (fexofenadine)] 60 mg tablet 60 mg PO Q12H Qty: 60 2RF (DME) nebulizers [MC 300 Nebulizer w-Mouthpiece] Misc See Rx Instructions .Route Qty: 1 0RF Rx Instructions: As directed (DME) nebulizer accessories Kit See Rx Instructions .Route Qty: 1 0RF Rx Instructions: As directed Eliquis DVT-PE Treat 30D Start 5 mg (74 tabs) tablets,dose pack 5 mg PO Q12H ondansetron 8 mg tablet,disintegrating 8 mg translingual Q8H PRN (Reason: nausea and vomiting) prochlorperazine maleate 10 mg tablet 10 mg PO Q8H PRN (Reason: nausea and vomiting) Follow-up/Referrals: Reagan Fonseca MD [Primary Care Provider, Internal Medicine] Time of Disposition: 20:32
[2025-06-28 19:27] LABS: Alanine Aminotransferase 24 U/L (6-35); Albumin Level 4.1 g/dL (3.5-5.1); Alkaline Phosphatase 91 U/L (38-126); Anion Gap 8 mmol/L (4-12); Aspartate Amino Transferase 33 U/L (14-36); Bilirubin,Total 0.6 mg/dL (0.2-1.3); Blood Urea Nitrogen 7 mg/dL (7-17); Calcium 9.3 mg/dL (8.4-10.2); Carbon Dioxide 30 mmol/L (22-30); Chloride 106 mmol/L (98-107); Estimated CRCL calculation 85 ml/min; Estimated Glomerular Filt Rate > 60; Glucose 118 mg/dL (65-110); Osmolality Calculated 297 mOsm/kg (285-295); Potassium 3.4 mmol/L (3.4-5.0); Sodium 144 mmol/L (137-145); Total Protein 8.2 g/dL (6.3-8.2)
[2025-06-28 19:33] LABS: Band Neutrophils Percent 0 % (0-6); Basophils Absolute Manual 0.01 K/mm3 (0-0.1); Basophils Percent Manual 1 % (0-1); Eosinophils Absolute Manual 0.01 K/mm3 (0.02-0.50); Eosinophils Percent Manual 1 % (1-6); Lymphocytes Absolute Manual 1.09 K/mm3 (1.1-4.5); Lymphocytes Percent Manual 61 % (18-44); Monocytes Absolute Manual 0.01 K/mm3 (0.1-0.90); Monocytes Percent Manual 1 % (3-9); Neutrophils Absolute Manual 0.64 K/mm3 (1.3-6.7); Neutrophils Percent Manual 36 % (46-73); Schistocytes None Seen; Total Cells Counted 100
--- NOTE | 2025-06-28 19:34 | PC.NURSE ---
Corie, patient's daughter, . Please call if needed before she returns to ED.
[2025-06-28] MEDS: ONDANSETRON HCL ODT 4 MG TABLET PO (20:33)
--- NOTE | 2025-06-28 20:40 | PC.NURSE ---
ERP aware of pt's vital signs. No new orders.
== END 2025-06-28 20:55 | disposition home or self-care (01) ==
PROVIDERS: Family Medicine; Emergency Provider Internal Medicine Critical Care Medicine; PCP Family Medicine
DX: D70.1 Agranulocytosis secondary to cancer chemotherapy (principal); D46.9 Myelodysplastic syndrome, unspecified; R53.1 Weakness; E11.9 Type 2 diabetes mellitus without complications; J44.9 Chronic obstructive pulmonary disease, unspecified; F17.210 Nicotine dependence, cigarettes, uncomplicated
CPT/HCPCS: 36415; 71045; 80053; 83605; 85025; 85055; 85610; 93005; 96360; 99283; A9270

== ENCOUNTER 2025-07-03 12:08 | Outpatient (CLI) | payer MEDICARE, MEDICAID, SELFPAY ==
[2025-07-03 12:08] VITALS: BP 140/79; PULSE 88; RESP 16; TEMP 36.8; O2SAT 96; BMI 31.7
[2025-07-03] MEDS: SODIUM CHLORIDE 0.9% IV 1,000 ML 1000 ML IVPB (12:10)
[2025-07-03] MEDS: HEPARIN SODIUM LOCK FLUSH 500 UNITS/5 ML SYRINGE (13:14)
[2025-07-03 13:15] VITALS: BP 140/87; PULSE 88; RESP 14; O2SAT 97
--- NOTE | 2025-07-03 13:16 | PC.NURSE ---
Patient tolerated 1 L of normal saline IV fluids. Reports, I feel better.
--- OUTSIDE RECORDS SUMMARY | 2025-07-03 13:56 | XMS_ITS | Clinical Summary ---
Author Organization [facility] Address [address] [place] [address] Care Team Providers Care Prn Occupational Therapist Name Role Phone Reagan Fonseca MD Primary Care Provide r Pepe Alejo MD PhD Unavailable [phone] Armando Mar MD Unavailable Allergies Active Allergy Reactions Criticality Noted Date Comments Amoxicillin Shortness of breath, Nausea And Vomiting,Swelling High 01/26/2025 Penicillin G Shortness of breath,Swelling High 03/14 Medications acyclovir (ZOVIRAX) 400 mg tabletIndications:M DS (myelodysplastic syndrome) ([facility]) Take 1 tablet (400 mg total) by mouth 2 (two) times a day 5 Active albuterol 2.5 mg /3 mL (0.083 %) nebulizer solutionIndications :MDS (myelodysplastic syndrome) ([facility]) Inhale 3 mL (2.5 mg total) every 6 (six) hours as needed 5 Active albuterol HFA (PROVENTIL HFA,VENTOLIN HFA,PROAIR HFA) 90 mcg/actuation inhalerIndications: MDS (myelodysplastic syndrome) ([facility]) Inhale 2 puffs every 6 (six) hours as needed 5 Active ALPRAZolam (XANAX) 0.25 mg tabletIndications:M DS (myelodysplastic syndrome) ([facility]) Take 1 tablet (0.25 mg total) by mouth nightly as needed Active fluconazole (DIFLUCAN) 150 mg tabletIndications:M DS (myelodysplastic syndrome) ([facility]) Take 1 tablet (150 mg total) by mouth daily 5 Active Advair HFA 115-21 mcg/actuation inhalerIndications: MDS (myelodysplastic syndrome) ([facility]) Inhale 2 puffs 2 (two) times a day 5 Active oxyCODONE (ROXICODONE) 5 mg immediate release tabletIndications:M DS (myelodysplastic syndrome) ([facility]) Take 1 tablet (5 mg total) by mouth every 6 (six) hours as needed [address] (PROTONIX) 40 mg EC tabletIndications:M DS (myelodysplastic syndrome) ([facility]) Take 1 tablet (40 mg total) by mouth daily 5 Active Senexon-S 8.6-50 mgIndications:MDS (myelodysplastic syndrome) ([facility]) Take 2 tablets by mouth 2 (two) times a day 5 Active traZODone (DESYREL) 100 mg tabletIndications:M DS (myelodysplastic syndrome) ([facility]) Take 1 tablet (100 mg total) by mouth daily Active ciprofloxacin (CIPRO) 500 mg tabletIndications:M DS (myelodysplastic syndrome) ([facility]) TAKE 1 TABLET BY MOUTH TWICE A DAY 60 tablet 5 Active amLODIPine (NORVASC) 5 mg tablet Take 1 tablet (5 mg total) by mouth daily 5 Active apixaban (Eliquis) 5 mg tablet Take 1 tablet (5 mg total) by mouth once 5 Active escitalopram (LEXAPRO) 10 mg tablet Take 1 tablet (10 mg total) by mouth daily 5 Active levoFLOXacin (LEVAQUIN) 250 mg tablet TAKE 1 TABLET (250 MG) BY MOUTH ONCE DAILY 5 Active LORazepam (ATIVAN) 0.5 mg tablet Take 1 tablet (0.5 mg total) by mouth 2 (two) times a day as needed 5 Active nitrofurantoin monohydrate (MACROBID) 100 mg capsule Take 1 capsule (100 mg total) by mouth 2 (two) times a day 5 Active potassium chloride ER 20 mEq CR tablet Take 1 tablet (20 mEq total) by mouth 5 Active fluconazole (DIFLUCAN) 200 mg tablet Take 1 tablet (200 mg total) by mouth daily 5 Active prochlorperazine (COMPAZINE) 10 mg tabletIndications:M DS (myelodysplastic syndrome) ([facility]) TAKE 1 TABLET BY MOUTH ONCE EVERY 8 HOURS NEEDED FOR NAUSEA AND VOMITING 5 Active posaconazole (NOXAFIL) 100 mg tablet,delayed release (DR/EC)Indications: MDS (myelodysplastic syndrome) ([facility]) TAKE 3 TABLETS TWICE DAILY FOR ONE DAY THEN 3 TABLETS DAILY*PA DENIED 5 Active ondansetron ODT (ZOFRAN-ODT) 8 mg disintegrating tabletIndications:M DS (myelodysplastic syndrome) ([facility]) DISSOLVE 1 TABLET ON THE TONGUE EVERY 8 HOURS NEEDED FOR NAUSEA 5 Active Active Problems Problem Noted Date Diagnosed Date MDS (myelodysplastic syndrome) 03/14/2025 Encounters Date Type Department Care Team Description 06/24/2025 12:30 PM CDT Clinical Support [facility] - Lab Collection [address] [place] [phone] 06/24/2025 11:30 AM CDT Clinical Support [facility] - Lab Collection [address] [place] [phone] MDS (myelodysplastic syndrome) ([facility]) 06/24/2025 11:15 AM CDT Office Visit [facility] Medicine Bone Marrow Transplant [address] [place] [phone] Pepe Alejo MD PhD MDS (myelodysplastic syndrome) ([facility]) (Primary Dx) 06/24/2025 10:15 AM CDT Lab [facility] Medicine Oncology Lab [address] [place] [phone] 06/10/2025 Telephone [facility] Medicine Scheduling [address] [place] [phone] Inna Wu from Last 3 Months Immunizations Immunization Administration Dates Next Due Tdap 03/26/2021 Family History Medical History Relation Name Comments Lung cancer Brother Relation Name Status Comments Brother Social History Tobacco Use Types Packs/Day Years Used Date Smoking Tobacco: Never Smokeless Tobacco: Never Tobacco Cessation:Counseling Given: Not Answered Comments Unknown Sex and Gender Information Value Date Recorded Sex Assigned at Not on file Legal Sex Female 3:26 PM [employer] Gender Identity Not on file Sexual Orientation Not on file Obstetrics History Last Filed Vital Signs Vital Sign Reading Time Taken Comments Blood Pressure 166/83 06/24/2025 11:34 AM CDT Pulse 73 06/24/2025 11:34 AM CDT Temperature 36.4 C (97.5 F) 06/24/2025 11:34 AM CDT Respiratory Rate 18 06/24/2025 11:34 AM CDT Oxygen Saturation 97% 06/24/2025 11:34 AM CDT Inhaled Oxygen Concentration - - Weight 89.4 kg (197 lb 3.2 oz) 06/24/2025 11:34 AM CDT Height 170.2 cm (5' 7) 03/14/2025 8:35 AM CDT Body Mass Index 30.89 03/14/2025 8:35 AM CDT Plan of Treatment Health Maintenance Due Date Last Done Comments Breast Cancer Screening-Mammogram 1967 Cervical Cancer Screening 1967 Colon Cancer Screening-Colonoscopy 1967 Depression Screening 1967 Hepatitis C Screening 1967 Hepatitis B Screening 1985 Regular Well Visit/Exam 18-64 1985 Pneumococcal vaccine <65 (1 of 2 - PCV) 1986 Zoster Vaccine (1 of 2) 2017 Influenza Vaccine (#1) 2025 DTaP/Tdap/Td Vaccine (2 - Td or Tdap) 03/26/203104/2021 Procedures Procedure Name Priority Date/Time Associated Diagnosis Comments EGFR Routine 06/24/2025 11:20 AM CDT MDS (myelodysplastic syndrome) (HCC) DIFFERENTIAL AUTO Routine 06/24/2025 11: 20 AM CDT MDS (myelodysplastic syndrome) (HCC) CBC WITH AUTO DIFFERENTIAL Routine 06/24/2025 11:20 AM CDT MDS (myelodysplastic syndrome) (HCC) COMPREHENSIVE METABOLIC PANEL Routine 06/24/2025 11:20 AM CDT MDS (myelodysplastic syndrome) (HCC) LACTATE DEHYDROGENASE Routine 06/24/2025 11:20 AM CDT MDS (myelodysplastic syndrome) (HCC) TYPE AND SCREEN Routine 06/24/2025 11:20 AM CDT MDS (myelodysplastic syndrome) (HCC) from Last 3 Months Results * eGFR (06/24/2025 11:20 AM CDT) eGFR >90 >=60 mL/min/1. 73 m2 Comment: Interpretive Data Reference Interval Normal >/= 90 mL/min/1.73m2 Mildly decreased* 60 - 89 mL/min/1.73m2 Mildly to moderately decreased 45 - 59 mL/min/1.73m2 Moderately to severely decreased 30 - 44 mL/min/1.73m2 Severely decreased 15 - 29 mL/min/1.73m2 Kidney Failure < 15 mL/min/1.73m2 *Relative to young adult level Estimated glomerular filtration rate is determined by the 2020 CKD-EPI equation recommended by the National Kidney Foundation (A Unifying Approach to GFR Estimation: Recommendations of the NKF-ASK Task Force on Reassessing the Inclusion of Race in Diagnosing Kidney Disease, JASN 2020). The CKD-EPI equation should not be used for patients with unstable renal function and has not been validated in children and those over 70. Current interpretive data was last reviewed 2021. Blood 06/24/2025 11:2 0 AM CDT 06/24/2025 11:39 AM CDT us Pepe Alejo MD PhD LAB BLOOD ORDERABLES Fin al Result [facility] Department [place] [address] * (ABNORMAL) Differential, auto (06/24/2025 11:20 AM CDT) Neutrophil abs 0.63(L) 1.50 - 6.50 K/cumm Comment:Testing performed by : [facility], [address] [place] [phone] Lymphocyte abs 1.04 0.80 - 3.30 K/cumm [facility] Comment:Testing performed by : [facility], [address] [place] [phone] Monocyte abs 0.08(L) 0.20 - 0.80 K/cumm [facility] Comment:Testing performed by : [facility], [address] [place] [phone] Eosinophil abs 0.02 0.00 - 0.50 K/cumm [facility] Comment:Testing performed by : [facility], [address] [place] [phone] Basophil abs 0.01 0.00 - 0.10 K/cumm [facility] Comment:Testing performed by : [facility], [address] [place], [place] [phone] Neutrophil pct 35.2 % C[facility]ER [facility] Comment: Interpretive Data Percent cell count reference ranges are not reported, since discordance with absolute values may lead to misinterpretation of CBC data. Current Interpretive Data was last revised on 2017. Testing performed by: [facility], [address] [place] [phone] Lymphocyte pct 58.4 % [facility] Comment: Interpretive Data Percent cell count reference ranges are not reported, since discordance with absolute values may lead to misinterpretation of CBC data. Current Interpretive Data was last revised on 2017. Testing performed by: [facility], [address] [place] [phone] Monocyte pct 4.4 % [facility] Comment: Interpretive Data Percent cell count reference ranges are not reported, since discordance with absolute values may lead to misinterpretation of CBC data. Current Interpretive Data was last revised on 2017. Testing performed by: [facility], [address] [place] [phone] Eosinophil pct 1.3 % [facility] Comment: Interpretive Data Percent cell count reference ranges are not reported, since discordance with absolute values may lead to misinterpretation of CBC data. Current Interpretive Data was last revised on 2017. Testing performed by: [facility], [address] [place] [phone] Basophil pct 0.8 % CERHELADIO [facility] Comment: Interpretive Data Percent cell count reference ranges are not reported, since discordance with absolute values may lead to misinterpretation of CBC data. Current Interpretive Data was last revised on 2017. Testing performed by: [facility], [address] [place] [phone] Blood 06/24/2025 11:2 0 AM CDT 06/24/2025 11:39 AM CDT us Pepe Alejo MD PhD LAB BLOOD ORDERABLES Fin al Result [facility] Department [place] [address] * (ABNORMAL) CBC with auto differential (06/24/2025 11:20 AM CDT) WBC 1.78(L) 3.80 - 9.90 K/cumm Comment:Testing performed by : [facility], [address] [place] [phone] Hgb 11.8(L) 11.9 - 15.5 g/dL [facility]ERELLE RIVERA Comment:Testing performed by : [facility], [address] [place] [phone] Hct 34.7(L) 35.6 - 45.5 % [facility]ERELLE [facility] Comment:Testing performed by : [facility], [address] [place] [phone] Plt 75(L) 150 - 400 K/cumm CERHELADIO [facility]J Comment:Testing performed by : [facility], [address] [place] [phone] MPV 8.7 6.8 - 10.4 fL CHERELLE [facility]J Comment:Testing performed by : [facility], [address] [place] [phone] RBC 3.86(L) 3.90 - 5.20 M/cumm CHERELLE NICOLE Comment:Testing performed by : [facility], [address] [place], [place] [phone] MCV 89.9 81.3 - 96.4 fL [facility]ERELLE RIVERA Comment:Testing performed by : [facility], [address] [place], [place] [phone] MCH 30.7 27.1 - 33.3 pg [facility] Comment:Testing performed by : [facility], [address] [place] [address] MCHC 34.2 32.3 - 35.7 g/dL [facility] Comment:Testing performed by : [facility], [address] [place] [address] RDW CV 17.8(H) 11.1 - 14.9 % [facility] Comment:Testing performed by : [facility], [address] [place], [place] [phone] NRBC abs 0.00 0.00 - 0.01 K/cumm [facility] Comment:Testing performed by : [facility], [address] [place], [place] [phone] Blood 06/24/2025 11:2 0 AM CDT 06/24/2025 11:39 AM CDT Peep Alejo MD PhD LAB BLOOD ORDERABLES Fin al Result [facility] Department [place] [address] * Type and screen (06/24/2025 11:20 AM CDT) Renita, indirect Negative ABO Rh A Positive [facility]ERELLE R[facility]A Blood 06/24/2025 11:2 0 AM CDT 06/24/2025 11:52 AM CDT Narrative [facility]ELLE RIVERA - 06/24/2025 1:36 PM CDT Has the patient had Daratumumab or Isatuximab in the past 6 months?->Unknown Pepe Alejo MD PhD LAB BLOOD BANK TEST ORDAmy TENORIO Final Result Performing Organization Address City/[facility]/ZIP Co de Phone Number [facility] Department [place] [address] * Lactate dehydrogenase (LD) (06/24/2025 11:20 AM CDT) Pathologist [facility] Lactate dehydrogenase (LDH) 189 100 - 250 Units/L Blood 06/24/2025 11:2 0 AM CDT 06/24/2025 11:39 AM CDT Pepe Alejo MD PhD LAB BLOOD ORDERABLES Fin al Result Performing Organization Address [facility] Co de Phone Number [facility] Department [place] [address] * (ABNORMAL) Comprehensive metabolic panel (06/24/2025 11:20 AM CDT) [facility] Sodium 144 135 - 145 mmol/L Potassium, pl 3.1(L) 3.3 - 4.9 mmol/L [facility] Chloride 105 97 - 110 mmol/L [facility] CO2 28 22 - 32 mmol/L [facility] Anion gap 11 2 - 15 mmol/L [facility] BUN 10 6 - 25 mg/dL [facility] Creatinine 0.70 0.60 - 1.10 mg/dL [facility] Glucose 133 70 - 199 mg/dL [facility] Comment: Interpretive Data Fasting glucose >/= 126 mg/dl is diagnostic for diabetes. Fasting is defined as no caloric intake for at least 8 hours. Fasting glucose between 100 mg/dl to 125 mg/dl is diagnostic of prediabetes. In a patient with classic symptoms of hyperglycemia or hyperglycemic crisis, a random glucose >/= 200 mg/dl is diagnostic for diabetes. In the absence of unequivocal hyperglycemia, results should be confirmed by repeat testing. The classification and Diagnosis of Diabetes Diabetes Care 2021; 46: S19-S40. Current interpretive data was last revised 2022. Calcium 8.8 8.5 - 10.3 mg/dL [facility] Bilirubin, total 0.3 0.1 - 1.2 mg/dL [facility] Protein, pl 7.0 6.5 - 8.5 g/dL [facility] Albumin 4.0 3.5 - 5.0 g/dL [facility] Alk phos 82 40 - 130 Units/L [facility] ALT 21 7 - 45 Units/L [facility] AST 25 10 - 45 Units/L [facility] Blood 06/24/2025 11:2 0 AM CDT 06/24/2025 11:39 AM CDT us Pepe Alejo MD PhD LAB BLOOD ORDERABLES Fin al Result [facility] [place] [address] from Last 3 Months Insurance MEDICARE [facility] MEDICARE IDPA Care Teams Prn Occupational Therapist Relationship Specialty Start Date End Date Reagan Fonseca MD [address] [place], [place] [phone] PCP - General Family Medicine 12/11/24 Pepe Alejo MD PhD [id number] [facility] [address] IM [employer], , [address] [place] [address] Medical Oncologist/Transport Company Manager Medical Oncology 01/07/25 Armando Mar MD [address] [place] [address] Internal Medicine 03/18/25
--- OUTSIDE RECORDS SUMMARY | 2025-07-03 13:56 | XMS_ITS ---
Author Organization [facility] Address [address] [place] [address] Care Team Providers Care Training And Quality Manager Name Role Phone Reagan Fonseca MD Primary Care Provide r Pepe Alejo MD PhD Unavailable Armando Mar MD Unavailable [phone] Active Problems Problem Noted Date Diagnosed Date MDS (myelodysplastic syndrome) 03/14/2025 Current Treatment and Therapy Plans Adult BMT/ONC - Blood and/or Platelet Administration for Outpatient* Plan Start Date:03/14/2025 Plan Provider:Pepe Alejo MD PhD Linked Problems MDS (myelodysplastic syndrom e) (HCC) Treatment Medications No medications scheduled. Past Treatment and Therapy Plans No past plan information found.
== END 2025-07-03 12:09 | disposition home or self-care (01) ==
PROVIDERS: PCP Family Medicine; Visit Provider Internal Medicine Hematology
DX: D46.21 Refractory anemia with excess of blasts 1 (principal)
CPT/HCPCS: 96360; J7030

== ENCOUNTER 2025-07-15 11:04 | Outpatient (CLI) | payer MEDICARE, MEDICAID, SELFPAY ==
[2025-07-15 11:23] VITALS: BP 143/76; PULSE 74; RESP 16; TEMP 36.6; O2SAT 97; BMI 31.8
[2025-07-15 11:25] LABS: Hematocrit 38.5 % (35.0-49.0); Hemoglobin 12.4 g/dL (12.0-15.0); Mean Corpuscular HGB Conc 32.2 g/dL (32-36); Mean Corpuscular Hemoglobin 30.0 pg (27.0-31.0); Mean Corpuscular Volume 93.2 fL (78.0-102.0); Platelet Count Result 142 K/mm3 (150-420); Red Blood Count 4.13 M/mm3 (4.20-5.40); White Blood Count 2.5 K/mm3 (4.8-10.8)
[2025-07-15 11:37] LABS: Alanine Aminotransferase 20 U/L (6-35); Albumin Level 4.2 g/dL (3.5-5.1); Alkaline Phosphatase 77 U/L (38-126); Anion Gap 8 mmol/L (4-12); Aspartate Amino Transferase 27 U/L (14-36); Bilirubin,Total 0.4 mg/dL (0.2-1.3); Blood Urea Nitrogen 6 mg/dL (7-17); Calcium 9.2 mg/dL (8.4-10.2); Carbon Dioxide 30 mmol/L (22-30); Chloride 105 mmol/L (98-107); Estimated CRCL calculation 80 ml/min; Estimated Glomerular Filt Rate > 60; Glucose 143 mg/dL (65-110); Osmolality Calculated 295 mOsm/kg (285-295); Potassium 4.2 mmol/L (3.4-5.0); Sodium 143 mmol/L (137-145); Total Protein 8.2 g/dL (6.3-8.2)
[2025-07-15] MEDS: ONDANSETRON INJ 16 MG in SODIUM CHLORIDE 0.9% IV 50 ML 150 MG IVPB (11:50)
[2025-07-15] MEDS: SODIUM CHLORIDE 0.9% IV 250 ML 10 ML IVPB (11:50)
[2025-07-15] MEDS: SODIUM CHLORIDE 0.9% IVPB (12:23)
[2025-07-15] MEDS: DECITABINE IVPB (12:23)
--- OUTSIDE RECORDS SUMMARY | 2025-07-15 12:42 | XMS_ITS | Clinical Summary ---
Author Organization [facility] Address [address] [place] [address] Care Team Providers Care Endbander Name Role Phone Reagan Fonseca MD Primary Care Provide r Pepe Alejo MD PhD Unavailable [phone] Armando Mar MD Unavailable [phone] Allergies Active Allergy Reactions Criticality Noted Date Comments Amoxicillin Shortness of breath, Nausea And Vomiting,Swelling High 01/26/2025 Penicillin G Shortness of breath,Swelling High 03/14 Medications acyclovir (ZOVIRAX) 400 mg tabletIndications:M DS (myelodysplastic syndrome) ([facility]) Take 1 tablet (400 mg total) by mouth 2 (two) times a day 5 Active albuterol 2.5 mg /3 mL (0.083 %) nebulizer solutionIndications :MDS (myelodysplastic syndrome) ([facility]) Inhale 3 mL (2.5 mg total) every 6 (six) hours as needed 5 Active albuterol HFA (PROVENTIL HFA,VENTOLIN HFA,PROAIR HFA) 90 mcg/actuation inhalerIndications: MDS (myelodysplastic syndrome) ([facility]) Inhale 2 puffs every 6 (six) hours as needed 5 Active ALPRAZolam (XANAX) 0.25 mg tabletIndications:M DS (myelodysplastic syndrome) ([facility]) Take 1 tablet (0.25 mg total) by mouth nightly as needed Active fluconazole (DIFLUCAN) 150 mg tabletIndications:M DS (myelodysplastic syndrome) ([facility]) Take 1 tablet (150 mg total) by mouth daily 5 Active Advair HFA 115-21 mcg/actuation inhalerIndications: MDS (myelodysplastic syndrome) ([facility]) Inhale 2 puffs 2 (two) times a day 5 Active oxyCODONE (ROXICODONE) 5 mg immediate release tabletIndications:M DS (myelodysplastic syndrome) ([facility]) Take 1 tablet (5 mg total) by mouth every 6 (six) hours as needed [address] (PROTONIX) 40 mg EC tabletIndications:M DS (myelodysplastic syndrome) ([facility]) Take 1 tablet (40 mg total) by mouth daily 5 Active Senexon-S 8.6-50 mgIndications:MDS (myelodysplastic syndrome) ([facility]) Take 2 tablets by mouth 2 (two) times a day 5 Active traZODone (DESYREL) 100 mg tabletIndications:M DS (myelodysplastic syndrome) ([facility]) Take 1 tablet (100 mg total) by mouth daily Active ciprofloxacin (CIPRO) 500 mg tabletIndications:M DS (myelodysplastic syndrome) ([facility]) TAKE 1 TABLET BY MOUTH TWICE A [...] (COMPAZINE) 10 mg tabletIndications:M DS (myelodysplastic syndrome) ([facility]) TAKE 1 TABLET BY MOUTH ONCE EVERY 8 HOURS NEEDED FOR NAUSEA AND VOMITING 5 Active posaconazole (NOXAFIL) 100 mg tablet,delayed release (DR/EC)Indications: MDS (myelodysplastic syndrome) ([facility]) TAKE 3 TABLETS TWICE DAILY FOR ONE DAY THEN 3 TABLETS DAILY*PA DENIED 5 Active ondansetron ODT (ZOFRAN-ODT) 8 mg disintegrating tabletIndications:M DS (myelodysplastic syndrome) ([facility]) DISSOLVE 1 TABLET ON THE TONGUE EVERY 8 HOURS NEEDED FOR NAUSEA 5 Active Active Problems Problem Noted Date Diagnosed Date MDS (myelodysplastic syndrome) 03/14/2025 Encounters Date Type Department Care Team Description 06/24/2025 12:30 PM CDT Clinical Support [facility] - Lab Collection [address] [place] [id number] 06/24/2025 11:30 AM CDT Clinical Support [facility] - Lab Collection [address] [place] [id number] MDS (myelodysplastic syndrome) ([facility]) 06/24/2025 11:15 AM CDT Office Visit [facility] Medicine Bone Marrow Transplant [address] [place] [phone] Pepe Alejo MD PhD MDS (myelodysplastic syndrome) ([facility]) (Primary Dx) 06/24/2025 10:15 AM CDT Lab [facility] Medicine Oncology Lab [address] [place] [phone] 06/10/2025 Telephone [facility] Medicine Scheduling [address] [place] [phone] Inna Wu from Last 3 Months Immunizations [...] on file 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 Gender Identity Not on file Sexual Orientation [...] LAB BLOOD ORDERABLES Fin al Result [facility] Department [place] [address] * (ABNORMAL) Differential, auto (06/24/2025 11:20 AM CDT) Neutrophil abs 0.63(L) 1.50 - 6.50 K/cumm Comment:Testing performed by : [facility], [address] [place] [phone] Lymphocyte abs 1.04 0.80 - 3.30 K/cumm [facility] Comment:Testing performed by : [facility], [address] [place] [phone] Monocyte abs 0.08(L) 0.20 - 0.80 K/cumm [facility] Comment:Testing performed by : [facility], [address] [place] [phone] Eosinophil abs 0.02 0.00 - 0.50 K/cumm [facility] Comment:Testing performed by : [facility], [address] [place] [phone] Basophil abs 0.01 0.00 - 0.10 K/cumm [facility] Comment:Testing performed by : [facility], [address] [place], [place] [phone] Neutrophil pct 35.2 % [facility] Comment: Interpretive Data Percent cell count reference ranges are not reported, since discordance with absolute values may lead to misinterpretation of CBC data. Current Interpretive Data was last revised on 2017. Testing performed by: [facility], [address] [place] [phone] Lymphocyte pct 58.4 % [facility] Comment: Interpretive Data Percent cell count reference ranges are not reported, since discordance with absolute values may lead to misinterpretation of CBC data. Current Interpretive Data was last revised on 2017. Testing performed by: [facility], [address] [place] [phone] Monocyte pct 4.4 % [facility] Comment: Interpretive Data Percent cell count reference ranges are not reported, since discordance with absolute values may lead to misinterpretation of CBC data. Current Interpretive Data was last revised on 2017. Testing performed by: [facility], [address] [place] [phone] Eosinophil pct 1.3 % [facility] Comment: Interpretive Data Percent cell count reference ranges are not reported, since discordance with absolute values may lead to misinterpretation of CBC data. Current Interpretive Data was last revised on 2017. Testing performed by: [facility], [address] [place] [phone] Basophil pct 0.8 % [facility]ER[facility]IO [facility] Comment: Interpretive Data Percent cell count reference ranges are not reported, since discordance with absolute values may lead to misinterpretation of CBC data. Current Interpretive Data was last revised on 2017. Testing performed by: [facility], [address] [place] [phone] Blood 06/24/2025 11:2 0 AM CDT 06/24/2025 11:39 AM CDT us Pepe Alejo MD PhD LAB BLOOD ORDERABLES Fin al Result [facility] Department [place] [address] * (ABNORMAL) CBC with auto differential (06/24/2025 11:20 AM CDT) WBC 1.78(L) 3.80 - 9.90 K/cumm Comment:Testing performed by : [facility], [address] [place] [phone] Hgb 11.8(L) 11.9 - 15.5 g/dL [facility] Comment:Testing performed by : [facility], [address] [place] [phone] Hct 34.7(L) 35.6 - 45.5 % [facility] Comment:Testing performed by : [facility], [address] [place] [phone] Plt 75(L) 150 - 400 K/cumm [facility] Comment:Testing performed by : [facility], [address] [place] [phone] MPV 8.7 6.8 - 10.4 fL [facility] Comment:Testing performed by : [facility], [address] [place] [phone] RBC 3.86(L) 3.90 - 5.20 M/cumm CHERELLE NICOLE Comment:Testing performed by : [facility], [address] [place], [place] [phone] MCV 89.9 81.3 - 96.4 fL [facility] Comment:Testing performed by : [facility], [address] [place], [place] [phone] MCH 30.7 27.1 - 33.3 pg [facility] Comment:Testing performed by : [facility], [address] [place] [phone] MCHC 34.2 32.3 - 35.7 g/dL [facility] Comment:Testing performed by : [facility], [address] [place] [phone] RDW CV 17.8(H) 11.1 - 14.9 % [facility] Comment:Testing performed by : [facility], [address] [place], [place] [phone] NRBC abs 0.00 0.00 - 0.01 K/cumm [facility] Comment:Testing performed by : [facility], [address] [place], [place] [phone] Blood 06/24/2025 11:2 0 AM CDT 06/24/2025 11:39 AM CDT Pepe Alejo MD PhD LAB BLOOD ORDERABLES Fin al Result [facility] Department [place] [address] * Type and screen (06/24/2025 11:20 AM CDT) Renita, indirect Negative ABO Rh A Positive [facility] Blood 06/24/2025 11:2 0 AM CDT 06/24/2025 11:52 AM CDT Narrative [facility] - 06/24/2025 1:36 PM CDT Has the patient had Daratumumab or Isatuximab in the past 6 months?->Unknown Pepe Alejo MD PhD LAB BLOOD BANK TEST ORDAmy TENORIO Final Result Performing Organization Address City/[facility]/ZIP Co de Phone Number [facility] Department [place] [address] * Lactate dehydrogenase (LD) (06/24/2025 11:20 AM CDT) Pathologist [facility] Lactate dehydrogenase (LDH) 189 100 - 250 Units/L Blood 06/24/2025 11:2 0 AM CDT 06/24/2025 11:39 AM CDT Pepe Alejo MD PhD LAB BLOOD ORDERABLES Fin al Result Performing Organization Address [facility] Co de Phone Number [facility] Department [place] [address] * (ABNORMAL) Comprehensive metabolic panel (06/24/2025 11:20 AM CDT) [facility] Sodium 144 135 - 145 mmol/L Potassium, pl 3.1(L) 3.3 - 4.9 mmol/L [facility] Chloride 105 97 - 110 mmol/L [facility] CO2 28 22 - 32 mmol/L [facility] Anion gap 11 2 - 15 mmol/L [facility] BUN 10 6 - 25 mg/dL [facility] Creatinine 0.70 0.60 - 1.10 mg/dL [facility] Glucose 133 70 - 199 mg/dL [facility] Comment: Interpretive Data Fasting glucose >/= 126 [...] 2022. Calcium 8.8 8.5 - 10.3 mg/dL [facility] Bilirubin, total 0.3 0.1 - 1.2 mg/dL [facility] Protein, pl 7.0 6.5 - 8.5 g/dL [facility] Albumin 4.0 3.5 - 5.0 g/dL [facility] Alk phos 82 40 - 130 Units/L [facility] ALT 21 7 - 45 Units/L [facility] AST 25 10 - 45 Units/L [facility] Blood 06/24/2025 11:2 0 AM CDT 06/24/2025 11:39 AM CDT us Pepe Alejo MD PhD LAB BLOOD ORDERABLES Fin al Result [facility] [place] [address] from Last 3 Months Insurance MEDICARE [facility] MEDICARE IDPA Care Teams Endbander Relationship Specialty Start Date End Date Reagan Fonseca MD [address], [place] [phone] PCP - General Family Medicine 12/11/24 Pepe Alejo MD PhD [address] [facility] 8 DIV IM BONE MARROW TRANSPLANT, , [address] [place] [address] Medical Oncologist/Sap Analyst Medical Oncology 01/07/25 Armando Mar MD [address] [place] [address] Internal Medicine 03/18/25
--- OUTSIDE RECORDS SUMMARY | 2025-07-15 12:42 | XMS_ITS ---
Author Organization [facility] Address [address] [place] [address] Care Team Providers Care Solidworks Drafter Name Role Phone Reagan Fonseca MD Primary Care Provide r Pepe Alejo MD PhD Unavailable Armando Mar MD Unavailable Active Problems Problem Noted Date Diagnosed Date MDS (myelodysplastic syndrome) 03/14/2025 Current Treatment and Therapy Plans Adult BMT/ONC - Blood and/or Platelet Administration for Outpatient* Plan Start Date:03/14/2025 Plan Provider:Pepe Alejo MD PhD Linked Problems MDS (myelodysplastic syndrom e) (HCC) Treatment Medications No medications scheduled. Past Treatment and Therapy Plans No past plan information found.
[2025-07-15] MEDS: HEPARIN SODIUM LOCK FLUSH 500 UNITS/5 ML SYRINGE IV PUSH (13:29)
[2025-07-15 13:35] VITALS: BP 134/77; PULSE 78; RESP 14; O2SAT 97
--- NOTE | 2025-07-15 13:48 | PC.NURSE ---
Patient tolerated Decitabine treatment infusion well. SEE MAR/patient care notes.
== END 2025-07-15 11:05 | disposition home or self-care (01) ==
PROVIDERS: PCP Family Medicine; Visit Provider Internal Medicine Hematology
DX: Z51.11 Encounter for antineoplastic chemotherapy (principal); D46.21 Refractory anemia with excess of blasts 1
CPT/HCPCS: 36415; 36591; 80053; 85027; 96367; 96413; J0894; J2405; J7050

== ENCOUNTER 2025-07-16 10:44 | Outpatient (CLI) | payer MEDICARE, MEDICAID, SELFPAY ==
[2025-07-16 10:49] VITALS: BMI 31.8
[2025-07-16] MEDS: SODIUM CHLORIDE 0.9% IVPB ×2 (11:00→11:23)
[2025-07-16] MEDS: ONDANSETRON IVPB (11:00)
[2025-07-16] MEDS: SODIUM CHLORIDE 0.9% IV 250 ML 10 ML IVPB (11:05)
[2025-07-16 11:18] VITALS: BP 173/80; PULSE 72; RESP 14; TEMP 36.6; O2SAT 97
[2025-07-16] MEDS: DECITABINE IVPB (11:23)
[2025-07-16] MEDS: HEPARIN SODIUM LOCK FLUSH 500 UNITS/5 ML SYRINGE IV PUSH (12:27)
[2025-07-16 12:38] VITALS: BP 152/80; PULSE 78; RESP 14
--- NOTE | 2025-07-16 12:40 | PC.NURSE ---
Tolerated cycle 6 day 2 Decitabine treatment well. today. SEE MAR/patient care notes.
== END 2025-07-16 10:45 | disposition home or self-care (01) ==
PROVIDERS: PCP Family Medicine; Visit Provider Internal Medicine Hematology
DX: Z51.11 Encounter for antineoplastic chemotherapy (principal); D46.21 Refractory anemia with excess of blasts 1
CPT/HCPCS: 96367; 96413; J0894; J2405; J7050

== ENCOUNTER 2025-07-17 10:50 | Outpatient (CLI) | payer MEDICARE, MEDICAID, SELFPAY ==
[2025-07-17 11:00] VITALS: BP 119/73; PULSE 78; RESP 16; TEMP 36.6; O2SAT 97; BMI 31.7
[2025-07-17] MEDS: SODIUM CHLORIDE 0.9% IVPB ×2 (11:28→11:48)
[2025-07-17] MEDS: ONDANSETRON IVPB (11:28)
[2025-07-17] MEDS: SODIUM CHLORIDE 0.9% IV 250 ML 10 ML IVPB (11:29)
[2025-07-17] MEDS: DECITABINE IVPB (11:48)
--- OUTSIDE RECORDS SUMMARY | 2025-07-17 12:26 | XMS_ITS | Clinical Summary ---
Author Organization [facility] Address [address] [place] [address] Care Team Providers Care Pick Up And Delivery Driver Name Role Phone Reagan Fonseca MD Primary Care Provide r Pepe Alejo MD PhD Unavailable Armando Mar MD Unavailable Allergies Active Allergy Reactions Criticality Noted Date Comments Amoxicillin Shortness of breath, Nausea And Vomiting,Swelling High 01/26/2025 Penicillin G Shortness of breath,Swelling High 03/14 Medications acyclovir (ZOVIRAX) 400 mg tabletIndications:M DS (myelodysplastic syndrome) (FORMERLY [facility]) Take 1 tablet (400 mg total) by mouth 2 (two) times a day 5 Active albuterol 2.5 mg /3 mL (0.083 %) nebulizer solutionIndications :MDS (myelodysplastic syndrome) (FORM[facility]) Inhale 3 mL (2.5 mg total) every 6 (six) hours as needed 5 Active albuterol HFA (PROVENTIL HFA,VENTOLIN HFA,PROAIR HFA) 90 mcg/actuation inhalerIndications: MDS (myelodysplastic syndrome) ([facility]) Inhale 2 puffs every 6 (six) hours as needed 5 Active ALPRAZolam (XANAX) 0.25 mg tabletIndications:M DS (myelodysplastic syndrome) ([facility]) Take 1 tablet (0.25 mg total) by mouth nightly as needed Active fluconazole (DIFLUCAN) 150 mg tabletIndications:M DS (myelodysplastic syndrome) ([facility]) Take 1 tablet (150 mg total) by mouth daily 5 Active Advair HFA 115-21 mcg/actuation inhalerIndications: MDS (myelodysplastic syndrome) ([facility]) Inhale 2 puffs 2 (two) times a day 5 Active oxyCODONE (ROXICODONE) 5 mg immediate release tabletIndications:M DS (myelodysplastic syndrome) ([facility]) Take 1 tablet (5 mg total) by mouth every 6 (six) hours as needed [address] (PROTONIX) 40 mg EC tabletIndications:M DS (myelodysplastic syndrome) ([facility]) Take 1 tablet (40 mg total) by mouth daily 5 Active Senexon-S 8.6-50 mgIndications:MDS (myelodysplastic syndrome) ([facility]) Take 2 tablets by mouth 2 (two) times a day 5 Active traZODone (DESYREL) 100 mg tabletIndications:M DS (myelodysplastic syndrome) ([facility]) Take 1 tablet (100 mg total) by mouth daily Active ciprofloxacin (CIPRO) 500 mg tabletIndications:M DS (myelodysplastic syndrome) ([facility]) TAKE 1 TABLET BY MOUTH TWICE A [...] (COMPAZINE) 10 mg tabletIndications:M DS (myelodysplastic syndrome) ([facility]) TAKE 1 TABLET BY MOUTH ONCE EVERY 8 HOURS NEEDED FOR NAUSEA AND VOMITING 5 Active posaconazole (NOXAFIL) 100 mg tablet,delayed release (DR/EC)Indications: MDS (myelodysplastic syndrome) ([facility]) TAKE 3 TABLETS TWICE DAILY FOR ONE DAY THEN 3 TABLETS DAILY*PA DENIED 5 Active ondansetron ODT (ZOFRAN-ODT) 8 mg disintegrating tabletIndications:M DS (myelodysplastic syndrome) ([facility]) DISSOLVE 1 TABLET ON THE TONGUE EVERY 8 HOURS NEEDED FOR NAUSEA 5 Active Active Problems Problem Noted Date Diagnosed Date MDS (myelodysplastic syndrome) 03/14/2025 Encounters Date Type Department Care Team Description 06/24/2025 12:30 PM CDT Clinical Support [facility] - Lab Collection [address] [place] [phone] 06/24/2025 11:30 AM CDT Clinical Support [facility] - Lab Collection [address] [place] [id number] MDS (myelodysplastic syndrome) ([facility]) 06/24/2025 11:15 AM CDT Office Visit [facility] Medicine Bone Marrow Transplant [address] [place] [phone] Pepe Alejo MD PhD MDS (myelodysplastic syndrome) ([facility]) (Primary Dx) 06/24/2025 10:15 AM CDT Lab [facility] Medicine Oncology Lab [address] [place] [phone] 06/10/2025 Telephone [facility] Medicine Scheduling [address] [place] [phone] Inna Wu from Last 3 Months Immunizations [...] on file 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 Department [place] [address] * (ABNORMAL) Differential, auto (06/24/2025 11:20 AM CDT) Neutrophil abs 0.63(L) 1.50 - 6.50 K/cumm Comment:Testing performed by : [facility] Heme Lab, [address] [place] [phone] Lymphocyte abs 1.04 0.80 - 3.30 K/cumm [facility] Comment:Testing performed by : [facility] Heme Lab, [address] [place] [phone] Monocyte abs 0.08(L) 0.20 - 0.80 K/cumm [facility] Comment:Testing performed by : [facility] Heme Lab, [address] [place] [phone] Eosinophil abs 0.02 0.00 - 0.50 K/cumm [facility] Comment:Testing performed by : [facility] Heme Lab, [address] [place] [phone] Basophil abs 0.01 0.00 - 0.10 K/cumm [facility] Comment:Testing performed by : [facility], [address] [place], [place] [phone] Neutrophil pct 35.2 % [facility] Comment: Interpretive Data Percent cell count reference ranges are not reported, since discordance with absolute values may lead to misinterpretation of CBC data. Current Interpretive Data was last revised on 2017. Testing performed by: [facility] Heme Lab, [address] [place] [phone] Lymphocyte pct 58.4 % [facility] Comment: Interpretive Data Percent cell count reference ranges are not reported, since discordance with absolute values may lead to misinterpretation of CBC data. Current Interpretive Data was last revised on 2017. Testing performed by: [facility], [address] [place] [phone] Monocyte pct 4.4 % [facility] Comment: Interpretive Data Percent cell count reference ranges are not reported, since discordance with absolute values may lead to misinterpretation of CBC data. Current Interpretive Data was last revised on 2017. Testing performed by: [facility] Lab, [address] [place] [phone] Eosinophil pct 1.3 % [facility] Comment: Interpretive Data Percent cell count reference ranges are not reported, since discordance with absolute values may lead to misinterpretation of CBC data. Current Interpretive Data was last revised on 2017. Testing performed by: [facility] Heme Lab, [address] [place] [phone] Basophil pct 0.8 % [facility] Comment: Interpretive Data Percent cell count reference ranges are not reported, since discordance with absolute values may lead to misinterpretation of CBC data. Current Interpretive Data was last revised on 2017. Testing performed by: [facility] Heme Lab, [address] [place] [phone] Blood 06/24/2025 11:2 0 AM CDT 06/24/2025 11:39 AM CDT us Pepe Alejo MD PhD LAB BLOOD ORDERABLES Fin al Result [facility] Department [place] [address] * (ABNORMAL) CBC with auto differential (06/24/2025 11:20 AM CDT) WBC 1.78(L) 3.80 - 9.90 K/cumm Comment:Testing performed by : [facility] Heme Lab, [address] [place] [phone] Hgb 11.8(L) 11.9 - 15.5 g/dL [facility] Comment:Testing performed by : [facility] Heme Lab, [address] [place] [phone] Hct 34.7(L) 35.6 - 45.5 % [facility] Comment:Testing performed by : [facility] Heme Lab, [address] [place] [phone] Plt 75(L) 150 - 400 K/cumm [facility] Comment:Testing performed by : [facility] Heme Lab, [address] [place] [phone] MPV 8.7 6.8 - 10.4 fL [facility] Comment:Testing performed by : [facility] Heme Lab, [address] [place] [phone] RBC 3.86(L) 3.90 - 5.20 M/cumm [facility] Comment:Testing performed by : [facility] Heme Lab, [address] [place], [place] [phone] MCV 89.9 81.3 - 96.4 fL [facility] Comment:Testing performed by : [facility] Heme Lab, [address] [place], [place] [phone] MCH 30.7 27.1 - 33.3 pg [facility] Comment:Testing performed by : [facility] Heme Lab, [address] [place] [phone] MCHC 34.2 32.3 - 35.7 g/dL [facility] Comment:Testing performed by : [facility] Heme Lab, [address] [place] [phone] RDW CV 17.8(H) 11.1 - 14.9 % [facility] Comment:Testing performed by : [facility] Heme Lab, [address] [place], [place] [phone] NRBC abs 0.00 0.00 - 0.01 K/cumm [facility] Comment:Testing performed by : [facility] Heme Lab, [address] [place], [place] [phone] Blood 06/24/2025 11:2 0 AM CDT 06/24/2025 11:39 AM CDT Pepe Alejo MD PhD LAB BLOOD ORDERABLES Fin al Result [facility] Department [place] [address] * Type and screen (06/24/2025 11:20 AM CDT) Renita, indirect Negative ABO Rh A Positive [facility] Blood 06/24/2025 11:2 0 AM CDT 06/24/2025 11:52 AM CDT Narrative [facility] - 06/24/2025 1:36 PM CDT Has the patient had Daratumumab or Isatuximab in the past 6 months?->Unknown Pepe Alejo MD PhD LAB BLOOD BANK TEST ORDAmy TENORIO Final Result Performing Organization Address City/[facility]/ZIP Co de Phone Number [facility] Department [place] [address] * Lactate dehydrogenase (LD) (06/24/2025 11:20 AM CDT) Pathologist [facility] Lactate dehydrogenase (LDH) 189 100 - 250 Units/L Blood 06/24/2025 11:2 0 AM CDT 06/24/2025 11:39 AM CDT Pepe Alejo MD PhD LAB BLOOD ORDERABLES Fin al Result Performing Organization Address [facility] Co de Phone Number [facility] Department [place] [address] * (ABNORMAL) Comprehensive metabolic panel (06/24/2025 11:20 AM CDT) [facility] Sodium 144 135 - 145 mmol/L Potassium, pl 3.1(L) 3.3 - 4.9 mmol/L [facility] Chloride 105 97 - 110 mmol/L [facility] CO2 28 22 - 32 mmol/L [facility] Anion gap 11 2 - 15 mmol/L [facility] BUN 10 6 - 25 mg/dL [facility] Creatinine 0.70 0.60 - 1.10 mg/dL [facility] Glucose 133 70 - 199 mg/dL [facility] Comment: Interpretive Data Fasting glucose >/= 126 [...] 2022. Calcium 8.8 8.5 - 10.3 mg/dL [facility] Bilirubin, total 0.3 0.1 - 1.2 mg/dL [facility] Protein, pl 7.0 6.5 - 8.5 g/dL [facility] Albumin 4.0 3.5 - 5.0 g/dL [facility] Alk phos 82 40 - 130 Units/L [facility] ALT 21 7 - 45 Units/L [facility] AST 25 10 - 45 Units/L [facility] Blood 06/24/2025 11:2 0 AM CDT 06/24/2025 11:39 AM CDT us Pepe Alejo MD PhD LAB BLOOD ORDERABLES Fin al Result [facility] [place] [address] from Last 3 Months Insurance MEDICARE [facility] MEDICARE [facility] Address: [address] [address] [place] [address] [employer] Care Teams Pick Up And Delivery Driver Relationship Specialty Start Date End Date Reagan Fonseca MD [address] [place], [place] [id number] PCP - General Family Medicine 12/11/24 Pepe Alejo MD PhD [id number] [facility] [address] IM BONE MARROW TRANSPLANT, , [address] [place] [address] Medical Oncologist/Software Development Advisor Medical Oncology 01/07/25 Armando Mar MD [address] [place] [address] Internal Medicine 03/18/25
--- OUTSIDE RECORDS SUMMARY | 2025-07-17 12:26 | XMS_ITS ---
Author Organization [facility] Address [address] [place] [address] Care Team Providers Care Special Investigation Unit Investigator Name Role Phone Reagan Fonseca MD Primary [...]
[2025-07-17] MEDS: HEPARIN SODIUM LOCK FLUSH 500 UNITS/5 ML SYRINGE IV PUSH (13:00)
[2025-07-17 13:32] VITALS: BP 128/69; PULSE 78; RESP 14
--- NOTE | 2025-07-17 13:34 | PC.NURSE ---
Patient tolerated Decitabine treatment well. SEE MAR/patient care notes.
== END 2025-07-17 10:51 | disposition home or self-care (01) ==
PROVIDERS: PCP Family Medicine; Visit Provider Internal Medicine Hematology
DX: Z51.11 Encounter for antineoplastic chemotherapy (principal); D46.21 Refractory anemia with excess of blasts 1
CPT/HCPCS: 96367; 96413; J0894; J2405; J3420; J7050

== ENCOUNTER 2025-07-18 10:47 | Outpatient (CLI) | payer MEDICARE, MEDICAID, SELFPAY ==
[2025-07-18 11:04] VITALS: BP 129/73; PULSE 78; RESP 14; TEMP 36.6; O2SAT 97; BMI 31.6
[2025-07-18] MEDS: SODIUM CHLORIDE 0.9% IV 250 ML 10 ML IVPB (11:30)
[2025-07-18] MEDS: SODIUM CHLORIDE 0.9% IVPB ×2 (11:37→12:00)
[2025-07-18] MEDS: ONDANSETRON IVPB (11:37)
--- OUTSIDE RECORDS SUMMARY | 2025-07-18 11:56 | XMS_ITS | Clinical Summary ---
Author Organization [facility] Address [address] [place] [address] Care Team Providers Care Tobacco Grader Name Role Phone Reagan Fonseca MD Primary Care Provide r Pepe Alejo MD PhD Unavailable Armando Mar MD Unavailable [phone] Allergies Active Allergy Reactions Criticality Noted Date Comments Amoxicillin Shortness of breath, Nausea And Vomiting,Swelling High 01/26/2025 Penicillin G Shortness of breath,Swelling High 03/14 Medications acyclovir (ZOVIRAX) 400 mg tabletIndications:M DS (myelodysplastic syndrome) ([facility]) Take 1 tablet (400 mg total) by mouth 2 (two) times a day 5 Active albuterol 2.5 mg /3 mL (0.083 %) nebulizer solutionIndications :MDS (myelodysplastic syndrome) ([facility]) Inhale 3 mL (2.5 mg total) every 6 (six) hours as needed 5 Active albuterol HFA (PROVENTIL HFA,VENTOLIN HFA,PROAIR HFA) 90 mcg/actuation inhalerIndications: MDS (myelodysplastic syndrome) ([facility]) Inhale 2 puffs every 6 (six) hours as needed 5 Active ALPRAZolam (XANAX) 0.25 mg tabletIndications:M DS (myelodysplastic syndrome) ([facility]) Take 1 tablet (0.25 mg total) by mouth nightly as needed Active fluconazole (DIFLUCAN) 150 mg tabletIndications:M DS (myelodysplastic syndrome) ([facility]) Take 1 tablet (150 mg total) by mouth daily 5 Active Advair HFA 115-21 mcg/actuation inhalerIndications: MDS (myelodysplastic syndrome) ([facility]) Inhale 2 puffs 2 (two) times a day 5 Active oxyCODONE (ROXICODONE) 5 mg immediate release tabletIndications:M DS (myelodysplastic syndrome) ([facility]) Take 1 tablet (5 mg total) by mouth every 6 (six) hours as needed [address] (PROTONIX) 40 mg EC tabletIndications:M DS (myelodysplastic syndrome) ([facility]) Take 1 tablet (40 mg total) by mouth daily 5 Active Senexon-S 8.6-50 mgIndications:MDS (myelodysplastic syndrome) ([facility]) Take 2 tablets by mouth 2 (two) times a day 5 Active traZODone (DESYREL) 100 mg tabletIndications:M DS (myelodysplastic syndrome) ([facility]) Take 1 tablet (100 mg total) by mouth daily Active ciprofloxacin (CIPRO) 500 mg tabletIndications:M DS (myelodysplastic syndrome) ([facility]) TAKE 1 TABLET BY MOUTH TWICE A [...] (COMPAZINE) 10 mg tabletIndications:M DS (myelodysplastic syndrome) ([facility]) TAKE 1 TABLET BY MOUTH ONCE EVERY 8 HOURS NEEDED FOR NAUSEA AND VOMITING 5 Active posaconazole (NOXAFIL) 100 mg tablet,delayed release (DR/EC)Indications: MDS (myelodysplastic syndrome) ([facility]) TAKE 3 TABLETS TWICE DAILY FOR ONE DAY THEN 3 TABLETS DAILY*PA DENIED 5 Active ondansetron ODT (ZOFRAN-ODT) 8 mg disintegrating tabletIndications:M DS (myelodysplastic syndrome) ([facility]) DISSOLVE 1 TABLET ON THE TONGUE EVERY 8 HOURS NEEDED FOR NAUSEA 5 Active Active Problems Problem Noted Date Diagnosed Date MDS (myelodysplastic syndrome) 03/14/2025 Encounters Date Type Department Care Team Description 06/24/2025 12:30 PM CDT Clinical Support [facility] - Lab Collection [address] [place] [id number] 06/24/2025 11:30 AM CDT Clinical Support [facility] - Lab Collection [address] [place] [phone] MDS (myelodysplastic syndrome) ([facility]) 06/24/2025 11:15 AM CDT Office Visit [facility] Medicine Bone Marrow Transplant [address] [place] [phone] Pepe Alejo MD PhD MDS (myelodysplastic syndrome) ([facility]) (Primary Dx) 06/24/2025 10:15 AM CDT Lab [facility] Medicine Oncology Lab [address] [place] [phone] 06/10/2025 Telephone [facility] Medicine Scheduling [address] [place] [phone] Inna Wu from Last 3 Months Immunizations [...] on file 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 Gender Identity Not on file Sexual Orientation [...] LAB BLOOD ORDERABLES Fin al Result [facility] Department [place] [address] * (ABNORMAL) Differential, auto (06/24/2025 11:20 AM CDT) Neutrophil abs 0.63(L) 1.50 - 6.50 K/cumm Comment:Testing performed by : [facility] Heme Lab, [address] [place] [phone] Lymphocyte abs 1.04 0.80 - 3.30 K/cumm [facility] Comment:Testing performed by : [facility] Heme Lab, [address] [place] [phone] Monocyte abs 0.08(L) 0.20 - 0.80 K/cumm [facility] Comment:Testing performed by : [facility] Heme Lab, [address] [place] [phone] Eosinophil abs 0.02 0.00 - 0.50 K/cumm [facility] Comment:Testing performed by : [facility] Heme Lab, [address] [place] [phone] Basophil abs 0.01 0.00 - 0.10 K/cumm [facility] Comment:Testing performed by : [facility], [address] [place], [place] [phone] Neutrophil pct 35.2 % [facility]ER [facility] Comment: Interpretive Data Percent cell count reference ranges are not reported, since discordance with absolute values may lead to misinterpretation of CBC data. Current Interpretive Data was last revised on 2017. Testing performed by: [facility] Heme Lab, [address] [place] [phone] Lymphocyte pct 58.4 % [facility] Comment: Interpretive Data Percent cell count reference ranges are not reported, since discordance with absolute values may lead to misinterpretation of CBC data. Current Interpretive Data was last revised on 2017. Testing performed by: [facility], [address] [place] [phone] Monocyte pct 4.4 % [facility] Comment: Interpretive Data Percent cell count reference ranges are not reported, since discordance with absolute values may lead to misinterpretation of CBC data. Current Interpretive Data was last revised on 2017. Testing performed by: [facility], [address] [place] [phone] Eosinophil pct 1.3 % [facility] Comment: Interpretive Data Percent cell count reference ranges are not reported, since discordance with absolute values may lead to misinterpretation of CBC data. Current Interpretive Data was last revised on 2017. Testing performed by: [facility] Heme Lab, [address] [place] [phone] Basophil pct 0.8 % CERHELADIO [facility] Comment: Interpretive Data Percent cell count reference ranges are not reported, since discordance with absolute values may lead to misinterpretation of CBC data. Current Interpretive Data was last revised on 2017. Testing performed by: [facility] Heme Lab, [address] [place] [phone] Blood 06/24/2025 11:2 0 AM CDT 06/24/2025 11:39 AM CDT us Pepe Alejo MD PhD LAB BLOOD ORDERABLES Fin al Result [facility] Department [place] [address] * (ABNORMAL) CBC with auto differential (06/24/2025 11:20 AM CDT) WBC 1.78(L) 3.80 - 9.90 K/cumm Comment:Testing performed by : [facility] Heme Lab, [address] [place] [phone] Hgb 11.8(L) 11.9 - 15.5 g/dL [facility]LE RIVERA Comment:Testing performed by : [facility] Heme Lab, [address] [place] [phone] Hct 34.7(L) 35.6 - 45.5 % [facility]ELLE [facility] Comment:Testing performed by : [facility] Heme Lab, [address] [place] [phone] Plt 75(L) 150 - 400 K/cumm CERHELADIO [facility]J Comment:Testing performed by : [facility] Heme Lab, [address] [place] [phone] MPV 8.7 6.8 - 10.4 fL [facility]LE [facility]J Comment:Testing performed by : [facility] Heme Lab, [address] [place] [phone] RBC 3.86(L) 3.90 - 5.20 M/cumm CHERELLE NICOLE Comment:Testing performed by : [facility] Heme Lab, [address] [place], [place] [phone] MCV 89.9 81.3 - 96.4 fL [facility]LE RIVERA Comment:Testing performed by : [facility] Heme Lab, [address] [place], [place] [phone] MCH 30.7 27.1 - 33.3 pg [facility] Comment:Testing performed by : [facility] Heme Lab, [address] [place] [address] MCHC 34.2 32.3 - 35.7 g/dL [facility] Comment:Testing performed by : [facility] Heme Lab, [address] [place] [address] RDW CV 17.8(H) 11.1 - 14.9 % [facility] Comment:Testing performed by : [facility] Heme Lab, [address] [place], [place] [phone] NRBC abs 0.00 0.00 - 0.01 K/cumm [facility] Comment:Testing performed by : [facility] Heme Lab, [address] [place], [place] [phone] Blood 06/24/2025 11:2 0 AM CDT 06/24/2025 11:39 AM CDT Pepe Alejo MD PhD LAB BLOOD ORDERABLES Fin al Result [facility] Department [place] [address] * Type and screen (06/24/2025 11:20 AM CDT) Renita, indirect Negative ABO Rh A Positive [facility] Blood 06/24/2025 11:2 0 AM CDT 06/24/2025 11:52 AM CDT Narrative [facility] - 06/24/2025 1:36 PM CDT Has the patient had Daratumumab or Isatuximab in the past 6 months?->Unknown Pepe Alejo MD PhD LAB BLOOD BANK TEST ORDAmy TENORIO Final Result Performing Organization Address City/[facility]/ZIP Co de Phone Number [facility] Department [place] [address] * Lactate dehydrogenase (LD) (06/24/2025 11:20 AM CDT) Pathologist [facility] Lactate dehydrogenase (LDH) 189 100 - 250 Units/L Blood 06/24/2025 11:2 0 AM CDT 06/24/2025 11:39 AM CDT Pepe Alejo MD PhD LAB BLOOD ORDERABLES Fin al Result Performing Organization Address [facility] Co de Phone Number [facility] Department [place] [address] * (ABNORMAL) Comprehensive metabolic panel (06/24/2025 11:20 AM CDT) [facility] Sodium 144 135 - 145 mmol/L Potassium, pl 3.1(L) 3.3 - 4.9 mmol/L [facility] Chloride 105 97 - 110 mmol/L [facility] CO2 28 22 - 32 mmol/L [facility] Anion gap 11 2 - 15 mmol/L [facility] BUN 10 6 - 25 mg/dL [facility] Creatinine 0.70 0.60 - 1.10 mg/dL [facility] Glucose 133 70 - 199 mg/dL [facility] Comment: Interpretive Data Fasting glucose >/= [...] Calcium 8.8 8.5 - 10.3 mg/dL [facility] Bilirubin, total 0.3 0.1 - 1.2 mg/dL [facility] Protein, pl 7.0 6.5 - 8.5 g/dL [facility] Albumin 4.0 3.5 - 5.0 g/dL [facility] Alk phos 82 40 - 130 Units/L [facility] ALT 21 7 - 45 Units/L [facility] AST 25 10 - 45 Units/L [facility] Blood 06/24/2025 11:2 0 AM CDT 06/24/2025 11:39 AM CDT us Pepe Alejo MD PhD LAB BLOOD ORDERABLES Fin al Result [facility] [place] [address] from Last 3 Months Insurance MEDICARE [facility] MEDICARE ID[employer] Care Teams Tobacco Grader Relationship Specialty Start Date End Date Reagan Fonseca MD [address], [place] [id number] PCP - General Family Medicine 12/11/24 Pepe Alejo MD PhD [address] [facility] 8 DIV IM BONE MARROW TRANSPLANT, , [address] [place] [address] Medical Oncologist/Director Of Strategic Programs Medical Oncology 01/07/25 Armando Mar MD [address] [place] [address] Internal Medicine 03/18/25
--- OUTSIDE RECORDS SUMMARY | 2025-07-18 11:56 | XMS_ITS ---
Author Organization [facility] Address [address] [place] [address] Care Team Providers Care Senior Information Systems Architect Name Role Phone Reagan Fonseca MD Primary [...]
[2025-07-18] MEDS: DECITABINE IVPB (12:00)
[2025-07-18] MEDS: HEPARIN SODIUM LOCK FLUSH 500 UNITS/5 ML SYRINGE IV PUSH (13:02)
[2025-07-18 13:13] VITALS: BP 133/70; PULSE 78; RESP 14; O2SAT 96
== END 2025-07-18 10:48 | disposition home or self-care (01) ==
PROVIDERS: PCP Family Medicine; Visit Provider Internal Medicine Hematology
DX: Z51.11 Encounter for antineoplastic chemotherapy (principal); D46.21 Refractory anemia with excess of blasts 1
CPT/HCPCS: 96367; 96413; J0894; J2405; J7050

== ENCOUNTER 2025-07-19 11:09 | Outpatient (CLI) | payer MEDICARE, MEDICAID, SELFPAY ==
[2025-07-19] MEDS: SODIUM CHLORIDE 0.9% IV 250 ML 10 ML IVPB (11:20)
--- OUTSIDE RECORDS SUMMARY | 2025-07-19 11:29 | XMS_ITS | Clinical Summary ---
Author Organization [facility] Address [address] [place] [address] Care Team Providers Care Bridge Ironworker Name Role Phone Reagan Fonseca MD Primary Care Provider [phone] Allergies Active Allergy Reactions Criticality Noted Date [...] Problem Noted Date Diagnosed Date Thrombocytopenia 03/07/2025 Social History Tobacco Use Types Packs/Day Years [...] from your doctor or pharmacy? Rarely 03/08/2025 [facility] Utilities Answer Date Recorded In the past 12 months has [facility] [employer], or water [employer] threatened to shut off services in your [...] No 03/08/2025 Social Connection and Isolation Panel Answer Date Recorded In a typical week, how many times do you talk on the phone with family, friends, or neighbors? Once a week 03/08/2025 How often do you get together with friends or re latives? Once a week 03/08/2025 How often do you attend latter-day or religion serv ices? Never 03/08/2025 Do you belong [...] medical care, and heating? Patient declined 03/08/2025 [facility] - Occupational Stress Questionnaire Answer Date Recorded [...] any time in the past 12 m [facility], were you homeless or living in a residential (including now)? No 03/08/2025 Comments No Sex [...] of 2) 2017 COVID-19 Vaccine (1 - 2024-2 6 season) 2025 Influenza Adult (#1) 2025 DTaP, Tdap and Td Vaccines ( 2 - Td or Tdap) 03/26/2031 03/26/2021 Hepatitis A Vaccines Aged Out No long er eligible based on patient's age to complete this topic Meningococcal B Vaccine Aged Out No l onger eligible based on patient's age to complete this topic Meningococcal Vaccine Aged Out No gina julio c eligible based on patient's age to complete this topic RSV Immunizations Under 20 Months Aged Out No longer eligible based on patient's age to complete this topic Insurance [address] [place] [address] MEDICAID MEDICARE Advance Directives * Full Code (Latest Code Status on File) Date Activated Date Inactivated Comments 03/07/2025 10:49 PM 03/12/2025 8:04 PM Care Teams Bridge Ironworker Relationship Specialty Start Date End Date Reagan Fonseca MD [address] [place] [address] PCP - General FAMILY PRACTICE 01/26/25
--- OUTSIDE RECORDS SUMMARY | 2025-07-19 11:29 | XMS_ITS | Clinical Summary ---
Author Organization [facility] Address [address] [place] [address] Care Team Providers Care Forestry Contractor Name Role Phone Reagan Fonseca MD Primary Care Provide r Pepe Alejo MD PhD Unavailable Armando Mar MD Unavailable Allergies Active Allergy Reactions Criticality Noted Date Comments Amoxicillin Shortness of breath, Nausea And Vomiting,Swelling High 01/26/2025 Penicillin G Shortness of breath,Swelling High 03/14 Medications acyclovir (ZOVIRAX) 400 mg tabletIndications:M DS (myelodysplastic syndrome) ([facility]) Take 1 tablet (400 mg total) by mouth 2 (two) times a day 5 Active albuterol 2.5 mg /3 mL (0.083 %) nebulizer solutionIndications :MDS (myelodysplastic syndrome) ([facility]) Inhale 3 mL (2.5 mg total) every 6 (six) hours as needed 5 Active albuterol HFA (PROVENTIL HFA,VENTOLIN HFA,PROAIR HFA) 90 mcg/actuation inhalerIndications: MDS (myelodysplastic syndrome) ([facility]) Inhale 2 puffs every 6 (six) hours as needed 5 Active ALPRAZolam (XANAX) 0.25 mg tabletIndications:M DS (myelodysplastic syndrome) ([facility]) Take 1 tablet (0.25 mg total) by mouth nightly as needed Active fluconazole (DIFLUCAN) 150 mg tabletIndications:M DS (myelodysplastic syndrome) ([facility]) Take 1 tablet (150 mg total) by mouth daily 5 Active Advair HFA 115-21 mcg/actuation inhalerIndications: MDS (myelodysplastic syndrome) ([facility]) Inhale 2 puffs 2 (two) times a day 5 Active oxyCODONE (ROXICODONE) 5 mg immediate release tabletIndications:M DS (myelodysplastic syndrome) ([facility]) Take 1 tablet (5 mg total) by mouth every 6 (six) hours as needed [address] (PROTONIX) 40 mg EC tabletIndications:M DS (myelodysplastic syndrome) ([facility]) Take 1 tablet (40 mg total) by mouth daily 5 Active Senexon-S 8.6-50 mgIndications:MDS (myelodysplastic syndrome) ([facility]) Take 2 tablets by mouth 2 (two) times a day 5 Active traZODone (DESYREL) 100 mg tabletIndications:M DS (myelodysplastic syndrome) ([facility]) Take 1 tablet (100 mg total) by mouth daily Active ciprofloxacin (CIPRO) 500 mg tabletIndications:M DS (myelodysplastic syndrome) ([facility]) TAKE 1 TABLET BY MOUTH [...] (COMPAZINE) 10 mg tabletIndications:M DS (myelodysplastic syndrome) ([facility]) TAKE 1 TABLET BY MOUTH ONCE EVERY 8 HOURS NEEDED FOR NAUSEA AND VOMITING 5 Active posaconazole (NOXAFIL) 100 mg tablet,delayed release (DR/EC)Indications: MDS (myelodysplastic syndrome) ([facility]) TAKE 3 TABLETS TWICE DAILY FOR ONE DAY THEN 3 TABLETS DAILY*PA DENIED 5 Active ondansetron ODT (ZOFRAN-ODT) 8 mg disintegrating tabletIndications:M DS (myelodysplastic syndrome) ([facility]) DISSOLVE 1 TABLET ON THE TONGUE EVERY 8 HOURS NEEDED FOR NAUSEA 5 Active Active Problems Problem Noted Date Diagnosed Date MDS (myelodysplastic syndrome) 03/14/2025 Encounters Date Type Department Care Team Description 06/24/2025 12:30 PM CDT Clinical Support [facility] - Lab Collection [address] [place] [address] 06/24/2025 11:30 AM CDT Clinical Support [facility] - Lab Collection [address] [place] [address] MDS (myelodysplastic syndrome) ([facility]) 06/24/2025 11:15 AM CDT Office Visit [facility] Medicine Bone Marrow Transplant [address] [place] [phone] Pepe Alejo MD PhD MDS (myelodysplastic syndrome) ([facility]) (Primary Dx) 06/24/2025 10:15 AM CDT Lab [facility] Medicine Oncology Lab [address] [place] [phone] 06/10/2025 Telephone [facility] Medicine Scheduling [address] [place] [phone] Inna Wu from Last 3 Months Immunizations [...] on file 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 Gender Identity Not on file Sexual Orientation [...] LAB BLOOD ORDERABLES Fin al Result [facility] [place] [address] * (ABNORMAL) Differential, auto (06/24/2025 11:20 AM CDT) Neutrophil abs 0.63(L) 1.50 - 6.50 K/cumm Comment:Testing performed by : [facility], [address] [place] [phone] Lymphocyte abs 1.04 0.80 - 3.30 K/cumm [facility] Comment:Testing performed by : [facility] Heme [facility], [address] [place] [phone] Monocyte abs 0.08(L) 0.20 - 0.80 K/cumm [facility] Comment:Testing performed by : [facility]e [facility], [address] [place] [phone] Eosinophil abs 0.02 0.00 - 0.50 K/cumm [facility] Comment:Testing performed by : [facility]e [facility], [address] [place] [phone] Basophil abs 0.01 0.00 - 0.10 K/cumm [facility] Comment:Testing performed by : [facility], [address] [place], [place] [phone] Neutrophil pct 35.2 % [facility] Comment: Interpretive Data Percent cell count reference ranges are not reported, since discordance with absolute values may lead to misinterpretation of CBC data. Current Interpretive Data was last revised on 2017. Testing performed by: [facility]e Lab, [address] [place] [phone] Lymphocyte pct 58.4 % [facility] Comment: Interpretive Data Percent cell count reference ranges are not reported, since discordance with absolute values may lead to misinterpretation of CBC data. Current Interpretive Data was last revised on 2017. Testing performed by: [facility], [address] [place] [phone] Monocyte pct 4.4 % [facility] Comment: Interpretive Data Percent cell count reference ranges are not reported, since discordance with absolute values may lead to misinterpretation of CBC data. Current Interpretive Data was last revised on 2017. Testing performed by: [facility], [address] [place] [phone] Eosinophil pct 1.3 % [facility] Comment: Interpretive Data Percent cell count reference ranges are not reported, since discordance with absolute values may lead to misinterpretation of CBC data. Current Interpretive Data was last revised on 2017. Testing performed by: [facility]e Lab, [address] [place] [phone] Basophil pct 0.8 % [facility] Comment: Interpretive Data Percent cell count reference ranges are not reported, since discordance with absolute values may lead to misinterpretation of CBC data. Current Interpretive Data was last revised on 2017. Testing performed by: [facility]e Lab, [address] [place] [phone] Blood 06/24/2025 11:2 0 AM CDT 06/24/2025 11:39 AM CDT us Pepe Alejo MD PhD LAB BLOOD ORDERABLES Fin al Result [facility] [place] [address] * (ABNORMAL) CBC with auto differential (06/24/2025 11:20 AM CDT) WBC 1.78(L) 3.80 - 9.90 K/cumm Comment:Testing performed by : [facility]e Lab, [address] [place] [phone] Hgb 11.8(L) 11.9 - 15.5 g/dL [facility] Comment:Testing performed by : [facility]e Lab, [address] [place] [phone] Hct 34.7(L) 35.6 - 45.5 % [facility] Comment:Testing performed by : [facility]e [facility], [address] [place] [phone] Plt 75(L) 150 - 400 K/cumm [facility] Comment:Testing performed by : [facility]e [facility], [address] [place] [phone] MPV 8.7 6.8 - 10.4 fL [facility] Comment:Testing performed by : [facility]e [facility], [address] [place] [phone] RBC 3.86(L) 3.90 - 5.20 M/cumm [facility] Comment:Testing performed by : [facility]e Lab, [address] [place], [place] [phone] MCV 89.9 81.3 - 96.4 fL [facility] Comment:Testing performed by : [facility]e Lab, [address] [place], [place] [phone] MCH 30.7 27.1 - 33.3 pg [facility] Comment:Testing performed by : [facility]e Lab, [address] [place] [phone] MCHC 34.2 32.3 - 35.7 g/dL [facility] Comment:Testing performed by : [facility]e Lab, [address] [place] [phone] RDW CV 17.8(H) 11.1 - 14.9 % [facility] Comment:Testing performed by : [facility]e Lab, [address] [place], [place] [phone] NRBC abs 0.00 0.00 - 0.01 K/cumm [facility] Comment:Testing performed by : [facility] Heme Lab, [address] [place], [place] [phone] Blood 06/24/2025 11:2 0 AM CDT 06/24/2025 11:39 AM CDT Pepe Alejo MD PhD LAB BLOOD ORDERABLES Fin al Result [facility] [place] [address] * Type and screen (06/24/2025 11:20 AM CDT) Renita, indirect Negative ABO Rh A Positive [facility] Blood 06/24/2025 11:2 0 AM CDT 06/24/2025 11:52 AM CDT Narrative [facility] - 06/24/2025 1:36 PM CDT Has the patient had Daratumumab or Isatuximab in the past 6 months?->Unknown Pepe Alejo MD PhD LAB BLOOD BANK TEST ORDAmy TENORIO Final Result Performing Organization Address City/[facility]/ZIP Co de Phone Number [facility] Department [place] [address] * Lactate dehydrogenase (LD) (06/24/2025 11:20 AM CDT) Pathologist [facility] Lactate dehydrogenase (LDH) 189 100 - 250 Units/L Blood 06/24/2025 11:2 0 AM CDT 06/24/2025 11:39 AM CDT Pepe Alejo MD PhD LAB BLOOD ORDERABLES Fin al Result Performing Organization Address [facility] Co de Phone Number [facility] Department [place] [address] * (ABNORMAL) Comprehensive metabolic panel (06/24/2025 11:20 AM CDT) [facility] Sodium 144 135 - 145 mmol/L Potassium, pl 3.1(L) 3.3 - 4.9 mmol/L [facility] Chloride 105 97 - 110 mmol/L [facility] CO2 28 22 - 32 mmol/L [facility] Anion gap 11 2 - 15 mmol/L [facility] BUN 10 6 - 25 mg/dL [facility] Creatinine 0.70 0.60 - 1.10 mg/dL [facility] Glucose 133 70 - 199 mg/dL [facility] Comment: Interpretive Data Fasting glucose >/= [...] 2022. Calcium 8.8 8.5 - 10.3 mg/dL [facility] Bilirubin, total 0.3 0.1 - 1.2 mg/dL [facility] Protein, pl 7.0 6.5 - 8.5 g/dL [facility] Albumin 4.0 3.5 - 5.0 g/dL [facility] Alk phos 82 40 - 130 Units/L [facility] ALT 21 7 - 45 Units/L [facility] AST 25 10 - 45 Units/L [facility] Blood 06/24/2025 11:2 0 AM CDT 06/24/2025 11:39 AM CDT us Pepe Alejo MD PhD LAB BLOOD ORDERABLES Fin al Result [facility] [place] [address] from Last 3 Months Insurance MEDICARE [facility] MEDICARE [facility] Address: [address] [address] [place] [address] IDPA Care Teams Forestry Contractor Relationship Specialty Start Date End Date Reagan Fosneca MD [address] [place], [place] [id number] PCP - General Family Medicine 12/11/24 Pepe Alejo MD PhD [id number] [facility] BONE MARROW TRANSPLANT, , [address] [place] [address] Medical Oncologist/[employer] Instructor Medical Oncology 01/07/25 Armando Mar MD [address] [place] [address] Internal Medicine 03/18/25
--- OUTSIDE RECORDS SUMMARY | 2025-07-19 11:29 | XMS_ITS ---
Author Organization [facility] Address [address] [place] [address] Care Team Providers Care Economic Research Assistant Name Role Phone Reagan Fonseca MD Primary [...]
--- OUTSIDE RECORDS SUMMARY | 2025-07-19 11:29 | XMS_ITS | Encounter Summary ---
Author Organization [facility] Address [address] [place] [address] Care Team Providers Care Fire Apparatus Sprinkler Inspector Name Role Phone Reagan Fonseca MD Primary Care Provider Encounter Details Date Type Department Care Team (Late st Contact Info) Description 02/24/2019 Abstract [facility] CONVERSION [address] [place] [address] , Generic Conversion, Social History Tobacco Use [...] on filedocumented in this encounter Care Teams Fire Apparatus Sprinkler Inspector Relationship Specialty Start Date End Date Reagan Fonseca MD [address] [place] [address] PCP - General FAMILY PRACTICE 01/26/25 documented as of this encounter
--- OUTSIDE RECORDS SUMMARY | 2025-07-19 11:29 | XMS_ITS | Encounter Summary ---
Author Organization [facility] Address [address] [place] [address] Care Team Providers Care Supervisor Pipeline Maintenance Name Role Phone Reagan Fonseca MD Primary Care Provider [phone] Encounter Details Date Type Department Care Team (Late st Contact Info) Description 12/03/2017 Abstract [facility] CONVERSION [address] [place] [address] , Generic Conversion, Social History Tobacco Use [...] on filedocumented in this encounter Care Teams Supervisor Pipeline Maintenance Relationship Specialty Start Date End Date Reagan Fonseca MD [address] [place] [address] PCP - General FAMILY PRACTICE 01/26/25 documented as of this encounter
[2025-07-19 11:30] VITALS: BP 143/70; PULSE 78; RESP 16; TEMP 36.6; O2SAT 97; BMI 31.7
[2025-07-19] MEDS: ONDANSETRON INJ 16 MG in SODIUM CHLORIDE 0.9% IV 50 ML 150 MG IVPB (11:30)
[2025-07-19] MEDS: SODIUM CHLORIDE 0.9% IVPB (11:57)
[2025-07-19] MEDS: DECITABINE IVPB (11:57)
[2025-07-19] MEDS: HEPARIN SODIUM LOCK FLUSH 500 UNITS/5 ML SYRINGE IV PUSH (13:06)
[2025-07-19 13:20] VITALS: BP 130/70; PULSE 76; RESP 14
--- NOTE | 2025-07-19 13:44 | PC.NURSE ---
Patient tolerated cycle 6 day 5 well. SEE MAR/patient care notes.
== END 2025-07-19 11:10 | disposition home or self-care (01) ==
LOC: CHSLAB 11:11 → CHSTREATRM 11:24
PROVIDERS: PCP Family Medicine; Visit Provider Internal Medicine Hematology
DX: Z51.11 Encounter for antineoplastic chemotherapy (principal); D46.21 Refractory anemia with excess of blasts 1
CPT/HCPCS: 96367; 96413; J0894; J2405; J7050

== ENCOUNTER 2025-07-22 12:43 | Outpatient (CLI) | payer MEDICARE, MEDICAID, SELFPAY ==
--- NOTE | ~2025-07-22 | CT_ITS ---
PROCEDURE(S): CT chest without contrast INDICATION(S): Follow-up pulmonary nodule COMPARISON(S): March 28 TECHNIQUE: Multiplanar images were obtained without the use of IV contrast. FINDINGS: Lungs: The area of the previously described nodule with surrounding groundglass opacity was evaluated. A small nodule persists, with a maximum dimension of 4 mm. Previously this measured 7 mm. There is no surrounding groundglass opacity. Visually, there is suggestion of partial calcification of the structure. Pleural spaces: Normal. Heart/mediastinum: Within normal limits Large airways: Clear/normal. Soft tissues: There is a Mediport in the right anterior chest wall. Upper abdomen: No significant abnormality is seen. IMPRESSION: Decrease in size of the nodule in question indicates a benign process. No new abnormalities are seen. Reviewed, dictated and finalized at location A. ING ASSISTANT IMPRESSION: Decrease in size of the nodule in question indicates a benign proce ss. No new abnormalities are seen.
--- OUTSIDE RECORDS SUMMARY | 2025-07-22 13:51 | XMS_ITS | Clinical Summary ---
Author Organization [facility] Address [address] [place] [address] Care Team Providers Care Property Staff Accountant Name Role Phone Reagan Fonseca MD Primary Care Provide r Pepe Alejo MD PhD Unavailable Armando Mar MD Unavailable Allergies Active Allergy Reactions Criticality Noted Date Comments Amoxicillin Shortness of breath, Nausea And Vomiting,Swelling High 01/26/2025 Penicillin G Shortness of breath,Swelling High 03/14 Medications acyclovir (ZOVIRAX) 400 mg tabletIndications:M DS (myelodysplastic syndrome) ([facility]) Take 1 tablet (400 mg total) by mouth 2 (two) times a day 5 Active albuterol 2.5 mg /3 mL (0.083 %) nebulizer solutionIndications :MDS (myelodysplastic syndrome) ([facility]) Inhale 3 mL (2.5 mg total) every 6 (six) hours as needed 5 Active albuterol HFA (PROVENTIL HFA,VENTOLIN HFA,PROAIR HFA) 90 mcg/actuation inhalerIndications: MDS (myelodysplastic syndrome) ([facility]) Inhale 2 puffs every 6 (six) hours as needed 5 Active ALPRAZolam (XANAX) 0.25 mg tabletIndications:M DS (myelodysplastic syndrome) ([facility]) Take 1 tablet (0.25 mg total) by mouth nightly as needed Active fluconazole (DIFLUCAN) 150 mg tabletIndications:M DS (myelodysplastic syndrome) ([facility]) Take 1 tablet (150 mg total) by mouth daily 5 Active Advair HFA 115-21 mcg/actuation inhalerIndications: MDS (myelodysplastic syndrome) ([facility]) Inhale 2 puffs 2 (two) times a day 5 Active oxyCODONE (ROXICODONE) 5 mg immediate release tabletIndications:M DS (myelodysplastic syndrome) ([facility]) Take 1 tablet (5 mg total) by mouth every 6 (six) hours as needed [address] (PROTONIX) 40 mg EC tabletIndications:M DS (myelodysplastic syndrome) ([facility]) Take 1 tablet (40 mg total) by mouth daily 5 Active Senexon-S 8.6-50 mgIndications:MDS (myelodysplastic syndrome) ([facility]) Take 2 tablets by mouth 2 (two) times a day 5 Active traZODone (DESYREL) 100 mg tabletIndications:M DS (myelodysplastic syndrome) ([facility]) Take 1 tablet (100 mg total) by mouth daily Active ciprofloxacin (CIPRO) 500 mg tabletIndications:M DS (myelodysplastic syndrome) ([facility]) TAKE 1 TABLET BY MOUTH TWICE A [...] 10 mg tabletIndications:M DS (myelodysplastic syndrome) ([facility]) TAKE 1 TABLET BY MOUTH ONCE EVERY 8 HOURS NEEDED FOR NAUSEA AND VOMITING 5 Active posaconazole (NOXAFIL) 100 mg tablet,delayed release (DR/EC)Indications: MDS (myelodysplastic syndrome) ([facility]) TAKE 3 TABLETS TWICE DAILY FOR ONE DAY THEN 3 TABLETS DAILY*PA DENIED 5 Active ondansetron ODT (ZOFRAN-ODT) 8 mg disintegrating tabletIndications:M DS (myelodysplastic syndrome) ([facility]) DISSOLVE 1 TABLET ON THE TONGUE EVERY 8 HOURS NEEDED FOR NAUSEA 5 Active Active Problems Problem Noted Date Diagnosed Date MDS (myelodysplastic syndrome) 03/14/2025 Encounters Date Type Department Care Team Description 06/24/2025 12:30 PM CDT Clinical Support [facility] - Lab Collection [address] [place] [address] 06/24/2025 11:30 AM CDT Clinical Support [facility] - Lab Collection [address] [place] [address] MDS (myelodysplastic syndrome) ([facility]) 06/24/2025 11:15 AM CDT Office Visit [facility] Medicine Bone Marrow Transplant [address] [place] [phone] Pepe Alejo MD PhD MDS (myelodysplastic syndrome) ([facility]) (Primary Dx) 06/24/2025 10:15 AM CDT Lab [facility] Medicine Oncology Lab [address] [place] [phone] 06/10/2025 Telephone [facility] Medicine Scheduling [address] [place] [phone] Inna Wu from Last 3 Months Immunizations [...] on file 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 Gender Identity Not on file Sexual Orientation [...] LAB BLOOD ORDERABLES Fin al Result [facility] [place] [address] * (ABNORMAL) Differential, auto (06/24/2025 11:20 AM CDT) Neutrophil abs 0.63(L) 1.50 - 6.50 K/cumm Comment:Testing performed by : [facility] Heme Lab, [address] [place] [phone] Lymphocyte abs 1.04 0.80 - 3.30 K/cumm [facility] Comment:Testing performed by : [facility] Heme Lab, [address] [place], [place] [id number] Monocyte abs 0.08(L) 0.20 - 0.80 K/cumm [facility] Comment:Testing performed by : [facility] Heme Lab, [address] [place] [address] Eosinophil abs 0.02 0.00 - 0.50 K/cumm [facility] Comment:Testing performed by : [facility] Heme Lab, [address] [place], [place] [id number] Basophil abs 0.01 0.00 - 0.10 K/cumm [facility] Comment:Testing performed by : [facility], [address] [place], [place] [id number] Neutrophil pct 35.2 % [facility] Comment: Interpretive Data Percent cell count reference ranges are not reported, since discordance with absolute values may lead to misinterpretation of CBC data. Current Interpretive Data was last revised on 2017. Testing performed by: [facility], [address] [place], [place] [id number] Lymphocyte pct 58.4 % [facility] Comment: Interpretive Data Percent cell count reference ranges are not reported, since discordance with absolute values may lead to misinterpretation of CBC data. Current Interpretive Data was last revised on 2017. Testing performed by: [facility], [address] [place] [phone] Monocyte pct 4.4 % [facility] Comment: Interpretive Data Percent cell count reference ranges are not reported, since discordance with absolute values may lead to misinterpretation of CBC data. Current Interpretive Data was last revised on 2017. Testing performed by: [facility], [address] [place] [phone] Eosinophil pct 1.3 % [facility] Comment: Interpretive Data Percent cell count reference ranges are not reported, since discordance with absolute values may lead to misinterpretation of CBC data. Current Interpretive Data was last revised on 2017. Testing performed by: [facility]e Lab, [address] [place] [phone] Basophil pct 0.8 % [facility] Comment: Interpretive Data Percent cell count reference ranges are not reported, since discordance with absolute values may lead to misinterpretation of CBC data. Current Interpretive Data was last revised on 2017. Testing performed by: [facility] Heme Lab, [address] [place] [phone] Blood 06/24/2025 11:2 0 AM CDT 06/24/2025 11:39 AM CDT us Pepe Alejo MD PhD LAB BLOOD ORDERABLES Fin al Result [facility] [place] [address] * (ABNORMAL) CBC with auto differential (06/24/2025 11:20 AM CDT) WBC 1.78(L) 3.80 - 9.90 K/cumm Comment:Testing performed by : [facility] Lab, [address] [place] [phone] Hgb 11.8(L) 11.9 - 15.5 g/dL [facility] Comment:Testing performed by : [facility], [address] [place] [phone] Hct 34.7(L) 35.6 - 45.5 % [facility] Comment:Testing performed by : [facility] Lab, [address] [place] [phone] Plt 75(L) 150 - 400 K/cumm [facility] Comment:Testing performed by : [facility] Heme Lab, [address] [place] [phone] MPV 8.7 6.8 - 10.4 fL [facility] Comment:Testing performed by : [facility]e Lab, [address] [place] [phone] RBC 3.86(L) 3.90 - 5.20 M/cumm [facility] Comment:Testing performed by : [facility]e Lab, [address] [place], [place] [phone] MCV 89.9 81.3 - 96.4 fL [facility] Comment:Testing performed by : [facility]e Lab, [address] [place], [place] [phone] MCH 30.7 27.1 - 33.3 pg [facility] Comment:Testing performed by : [facility]e Lab, [address] [place] [phone] MCHC 34.2 32.3 - 35.7 g/dL [facility] Comment:Testing performed by : [facility]e Lab, [address] [place], [place] [phone] RDW CV 17.8(H) 11.1 - 14.9 % [facility] Comment:Testing performed by : [facility] Heme Lab, [address] [place], [place] [phone] NRBC abs 0.00 0.00 - 0.01 K/cumm [facility] Comment:Testing performed by : [facility] Heme Lab, [address] [place], [place] [phone] Blood 06/24/2025 11:2 0 AM CDT 06/24/2025 11:39 AM CDT Pepe Alejo MD PhD LAB BLOOD ORDERABLES Fin al Result [facility] [place] [address] * Type and screen (06/24/2025 11:20 AM CDT) Renita, indirect Negative ABO Rh A Positive [facility] Blood 06/24/2025 11:2 0 AM CDT 06/24/2025 11:52 AM CDT Narrative [facility] - 06/24/2025 1:36 PM CDT Has the patient had Daratumumab or Isatuximab in the past 6 months?->Unknown Pepe Alejo MD PhD LAB BLOOD BANK TEST MICKY TENORIO Final Result Performing Organization Address City/[facility]/ZIP Co de Phone Number [facility] [place] [address] * Lactate dehydrogenase (LD) (06/24/2025 11:20 AM CDT) Pathologist [facility] Lactate dehydrogenase (LDH) 189 100 - 250 Units/L Blood 06/24/2025 11:2 0 AM CDT 06/24/2025 11:39 AM CDT Pepe Alejo MD PhD LAB BLOOD ORDERABLES Fin al Result Performing Organization Address [facility] Co de Phone Number [facility] [place] [address] * (ABNORMAL) Comprehensive metabolic panel (06/24/2025 11:20 AM CDT) [facility] Sodium 144 135 - 145 mmol/L Potassium, pl 3.1(L) 3.3 - 4.9 mmol/L [facility] Chloride 105 97 - 110 mmol/L [facility] CO2 28 22 - 32 mmol/L [facility] Anion gap 11 2 - 15 mmol/L [facility] BUN 10 6 - 25 mg/dL [facility] Creatinine 0.70 0.60 - 1.10 mg/dL [facility] Glucose 133 70 - 199 mg/dL [facility] Comment: Interpretive Data Fasting glucose >/= [...] classification and Diagnosis of Diabetes Diabetes Care 202; 46: S19-S40. Current interpretive data was last revised 2022. Calcium 8.8 8.5 - 10.3 mg/dL [facility] Bilirubin, total 0.3 0.1 - 1.2 mg/dL [facility] Protein, pl 7.0 6.5 - 8.5 g/dL [facility] Albumin 4.0 3.5 - 5.0 g/dL [facility] Alk phos 82 40 - 130 Units/L [facility] ALT 21 7 - 45 Units/L [facility] AST 25 10 - 45 Units/L [facility] Blood 06/24/2025 11:2 0 AM CDT 06/24/2025 11:39 AM CDT us Pepe Alejo MD PhD LAB BLOOD ORDERABLES Fin al Result [facility] Department [place] [address] from Last 3 Months Insurance MEDICARE [facility] MEDICARE [facility] Address: [address] [address] [place] [address] IDPA Care Teams Property Staff Accountant Relationship Specialty Start Date End Date Reagan Fonseca MD [address], [place] [id number] PCP - General Family Medicine 12/11/24 Pepe Alejo MD PhD [address] [facility] 8 DIV IM BONE MARROW TRANSPLANT, , [address] [place] [address] Medical Oncologist/Inse[employer] Leveler Medical Oncology 01/07/25 Armando Mar MD [address] [place] [address] Internal Medicine 03/18/25
--- OUTSIDE RECORDS SUMMARY | 2025-07-22 13:51 | XMS_ITS ---
Author Organization [facility] Address [address] [place] [address] Care Team Providers Care International Account Representative Name Role Phone Reagan Fonseca MD Primary Care Provide r Pepe Alejo MD PhD Unavailable [phone] Armando Mar MD Unavailable Active Problems Problem [...]
== END 2025-07-22 12:44 | disposition home or self-care (01) ==
LOC: CHSIMG 12:44
PROVIDERS: PCP Family Medicine; Visit Provider Internal Medicine Hematology
DX: R91.1 Solitary pulmonary nodule (principal)
CPT/HCPCS: 71250

== ENCOUNTER 2025-08-07 11:29 | Outpatient (CLI) | payer MEDICARE, MEDICAID, SELFPAY ==
[2025-08-07] MEDS: SODIUM CHLORIDE 0.9% IV 1,000 ML 1000 ML IVPB (11:49)
[2025-08-07 11:51] VITALS: BMI 30.3
[2025-08-07 12:04] LABS: Hematocrit 37.6 % (35.0-49.0); Hemoglobin 12.5 g/dL (12.0-15.0); Immature Platelet Fraction Pct 1.9 % (1.0-7.0); Mean Corpuscular HGB Conc 33.2 g/dL (32-36); Mean Corpuscular Hemoglobin 29.9 pg (27.0-31.0); Mean Corpuscular Volume 90.0 fL (78.0-102.0); Platelet Count Result 121 K/mm3 (150-420); Red Blood Count 4.18 M/mm3 (4.20-5.40); White Blood Count 2.6 K/mm3 (4.8-10.8)
[2025-08-07 12:05] VITALS: BP 159/80; PULSE 76; RESP 14; TEMP 36.4; O2SAT 97
[2025-08-07 12:16] LABS: Alanine Aminotransferase 24 U/L (6-35); Albumin Level 4.2 g/dL (3.5-5.1); Alkaline Phosphatase 89 U/L (38-126); Anion Gap 9 mmol/L (4-12); Aspartate Amino Transferase 30 U/L (14-36); Bilirubin,Total 0.5 mg/dL (0.2-1.3); Blood Urea Nitrogen 5 mg/dL (7-17); Calcium 8.7 mg/dL (8.4-10.2); Carbon Dioxide 30 mmol/L (22-30); Chloride 106 mmol/L (98-107); Estimated CRCL calculation 82 ml/min; Estimated Glomerular Filt Rate > 60; Glucose 133 mg/dL (65-110); Osmolality Calculated 299 mOsm/kg (285-295); Potassium 2.9 mmol/L (3.4-5.0); Sodium 145 mmol/L (137-145); Total Protein 7.2 g/dL (6.3-8.2)
[2025-08-07 12:31] LABS: Band Neutrophils Percent 0 % (0-6); Eosinophils Absolute Manual 0.05 K/mm3 (0.02-0.50); Eosinophils Percent Manual 2 % (1-6); Lymphocytes Absolute Manual 1.40 K/mm3 (1.1-4.5); Lymphocytes Percent Manual 54 % (18-44); Monocytes Absolute Manual 0.10 K/mm3 (0.1-0.90); Monocytes Percent Manual 4 % (3-9); Neutrophils Absolute Manual 1.09 K/mm3 (1.3-6.7); Neutrophils Percent Manual 42 % (46-73); Total Cells Counted 100
[2025-08-07 12:59] VITALS: BP 140/84
[2025-08-07] MEDS: HEPARIN SODIUM LOCK FLUSH 500 UNITS/5 ML SYRINGE (13:01)
--- NOTE | 2025-08-07 13:03 | PC.NURSE ---
Tolerated 1 liter of Normal saline well. Reports feeling a little better. Dr. Mar call and will be ordering some Potassium pills through her pharmacy r/t potassium being low on labs that were just drawn.
[2025-08-07 13:08] LABS: Add Urine Microscopic? NO; Appearance Urine Clear (Clear); Glucose Urine UA Negative (Negative); Leukocyte Esterase Ur Negative LEU/UL (Negative); Nitrate Urine Negative (Negative); Specific Grav Ur 1.010 (1.010-1.020)
--- OUTSIDE RECORDS SUMMARY | 2025-08-07 16:56 | XMS_ITS | Clinical Summary ---
Author Organization [facility] Address [address] [place] [address] Care Team Providers Care Piper Helper Name Role Phone Reagan Fonseca MD [...] from your doctor or pharmacy? Rarely 03/08/2025 [facility] Utilities Answer Date Recorded In the past 12 [address] has [facility] [employer], [employer], or water [employer] threatened to shut off services in your [...] How often do you attend latter-day or bahai serv ices? Never 03/08/2025 Do you belong [...] medical care, and heating? Patient declined 03/08/2025 [facility] of Occupat ional [facility] - Occupational Stress Questionnaire Answer Date [...] in the past [address] [facility], were you homeless or living in [...] complete this topic Insurance [address] [place] [address] MEDICAID MEDICARE Advance Directives * Full Code (Latest Code Status on File) Date Activated Date Inactivated Comments 03/07/2025 10:49 PM 03/12/2025 8:04 PM Care Teams Piper Helper Relationship Specialty Start Date End Date Reagan Fonseca MD [address] [place] [address] PCP - General FAMILY PRACTICE 01/26/25
--- OUTSIDE RECORDS SUMMARY | 2025-08-07 16:56 | XMS_ITS | Encounter Summary ---
Author Organization [facility] Address [address] [place] [address] Care Team Providers Care Bagger And Stock Handler Helper Name Role Phone Reagan Fonseca MD Primary Care Provider [phone] Encounter Details Date Type Department Care Team (Late st Contact Info) Description 12/03/2017 Abstract [facility] CONVERSION [address] [place] [address] , Generic Conversion, Social History Tobacco Use [...] on filedocumented in this encounter Care Teams Bagger And Stock Handler Helper Relationship Specialty Start Date End Date Reagan Fonseca MD [address] [place] [address] PCP - General FAMILY PRACTICE 01/26/25 documented as of this encounter
--- OUTSIDE RECORDS SUMMARY | 2025-08-07 16:56 | XMS_ITS | Encounter Summary ---
Author Organization [facility] Address [address] [place] [address] Care Team Providers Care Concrete Pipe Making Machine Operator Name Role Phone Reagan Fonseca MD Primary Care Provider [phone] Encounter Details Date Type Department Care Team (Late st Contact Info) Description 02/24/2019 Abstract [facility] CONVERSION [address] [place] [address] , Generic Conversion, Social History Tobacco Use [...] on filedocumented in this encounter Care Teams Concrete Pipe Making Machine Operator Relationship Specialty Start Date End Date Reagan Fonseca MD [address] [place] [address] PCP - General FAMILY PRACTICE 01/26/25 documented as of this encounter
--- OUTSIDE RECORDS SUMMARY | 2025-08-07 16:57 | XMS_ITS | Clinical Summary ---
Author Organization [facility] Address [address] [place] [address] Care Team Providers Care Heater Planer Operator Name Role Phone Reagan Fonseca MD Primary Care Provide r Pepe Alejo MD PhD Unavailable Armando Mar MD Unavailable Allergies Active Allergy Reactions Criticality Noted Date Comments Amoxicillin Shortness of breath, Nausea And Vomiting,Swelling High 01/26/2025 Penicillin G Shortness of breath,Swelling High 03/14 Medications acyclovir (ZOVIRAX) 400 mg tabletIndications:M DS (myelodysplastic syndrome) ([facility]) Take 1 tablet (400 mg total) by mouth 2 (two) times a day 5 Active albuterol 2.5 mg /3 mL (0.083 %) nebulizer solutionIndications :MDS (myelodysplastic syndrome) ([facility]) Inhale 3 mL (2.5 mg total) every 6 (six) hours as needed 5 Active albuterol HFA (PROVENTIL HFA,VENTOLIN HFA,PROAIR HFA) 90 mcg/actuation inhalerIndications: MDS (myelodysplastic syndrome) ([facility]) Inhale 2 puffs every 6 (six) hours as needed 5 Active ALPRAZolam (XANAX) 0.25 mg tabletIndications:M DS (myelodysplastic syndrome) ([facility]) Take 1 tablet (0.25 mg total) by mouth nightly as needed Active fluconazole (DIFLUCAN) 150 mg tabletIndications:M DS (myelodysplastic syndrome) ([facility]) Take 1 tablet (150 mg total) by mouth daily 5 Active Advair HFA 115-21 mcg/actuation inhalerIndications: MDS (myelodysplastic syndrome) ([facility]) Inhale 2 puffs 2 (two) times a day 5 Active oxyCODONE (ROXICODONE) 5 mg immediate release tabletIndications:M DS (myelodysplastic syndrome) ([facility]) Take 1 tablet (5 mg total) by mouth every 6 (six) hours as needed [address] (PROTONIX) 40 mg EC tabletIndications:M DS (myelodysplastic syndrome) ([facility]) Take 1 tablet (40 mg total) by mouth daily 5 Active Senexon-S 8.6-50 mgIndications:MDS (myelodysplastic syndrome) ([facility]) Take 2 tablets by mouth 2 (two) times a day 5 Active traZODone (DESYREL) 100 mg tabletIndications:M DS (myelodysplastic syndrome) ([facility]) Take 1 tablet (100 mg total) by mouth daily Active ciprofloxacin (CIPRO) 500 mg tabletIndications:M DS (myelodysplastic syndrome) ([facility]) TAKE 1 TABLET BY MOUTH [...] (COMPAZINE) 10 mg tabletIndications:M DS (myelodysplastic syndrome) ([facility]) TAKE 1 TABLET BY MOUTH ONCE EVERY 8 HOURS NEEDED FOR NAUSEA AND VOMITING 5 Active posaconazole (NOXAFIL) 100 mg tablet,delayed release (DR/EC)Indications: MDS (myelodysplastic syndrome) ([facility]) TAKE 3 TABLETS TWICE DAILY FOR ONE DAY THEN 3 TABLETS DAILY*PA DENIED 5 Active ondansetron ODT (ZOFRAN-ODT) 8 mg disintegrating tabletIndications:M DS (myelodysplastic syndrome) ([facility]) DISSOLVE 1 TABLET ON THE TONGUE EVERY 8 HOURS NEEDED FOR NAUSEA 5 Active Active Problems Problem Noted Date Diagnosed Date MDS (myelodysplastic syndrome) 03/14/2025 Encounters Date Type Department Care Team Description 06/24/2025 12:30 PM CDT Clinical Support [facility] - Lab Collection [address] [place] [id number] 06/24/2025 11:30 AM CDT Clinical Support [facility] - Lab Collection [address] [place] [id number] MDS (myelodysplastic syndrome) ([facility]) 06/24/2025 11:15 AM CDT Office Visit [facility] Medicine Bone Marrow Transplant [address] [place] [phone] Pepe Alejo MD PhD MDS (myelodysplastic syndrome) ([facility]) (Primary Dx) 06/24/2025 10:15 AM CDT Lab [facility] Medicine Oncology Lab [address] [place] [phone] 06/10/2025 Telephone [facility] Medicine Scheduling [address] [place] [address] Inna Wu from Last 3 Months Immunizations [...] on file 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 Gender Identity Not on file Sexual Orientation [...] LAB BLOOD ORDERABLES Fin al Result [facility] Department [place] [address] * (ABNORMAL) Differential, auto (06/24/2025 11:20 AM CDT) Neutrophil abs 0.63(L) 1.50 - 6.50 K/cumm Comment:Testing performed by : [facility] Heme Lab, [address] [place] [phone] Lymphocyte abs 1.04 0.80 - 3.30 K/cumm [facility] Comment:Testing performed by : [facility] Heme Lab, [address] [place], [place] [phone] Monocyte abs 0.08(L) 0.20 - 0.80 K/cumm [facility] Comment:Testing performed by : [facility] Heme Lab, [address] [place] [address] Eosinophil abs 0.02 0.00 - 0.50 K/cumm [facility] Comment:Testing performed by : [facility] Heme Lab, [address] [place], [place] [phone] Basophil abs 0.01 0.00 - 0.10 K/cumm [facility] Comment:Testing performed by : [facility][Note 3] Lab, [address] [place], [place] [phone] Neutrophil pct 35.2 % [facility] Comment: Interpretive Data Percent cell count reference ranges are not reported, since discordance with absolute values may lead to misinterpretation of CBC data. Current Interpretive Data was last revised on 2017. Testing performed by: [facility][Note 3] Lab, [address] [place], [place] [phone] Lymphocyte pct 58.4 % [facility] Comment: Interpretive Data Percent cell count reference ranges are not reported, since discordance with absolute values may lead to misinterpretation of CBC data. Current Interpretive Data was last revised on 2017. Testing performed by: [facility][Note 3] Lab, [address] [place] [address] Monocyte pct 4.4 % [facility] Comment: Interpretive Data Percent cell count reference ranges are not reported, since discordance with absolute values may lead to misinterpretation of CBC data. Current Interpretive Data was last revised on 2017. Testing performed by: [facility][Note 3] Lab, [address] [place] [address] Eosinophil pct 1.3 % [facility] Comment: Interpretive Data Percent cell count reference ranges are not reported, since discordance with absolute values may lead to misinterpretation of CBC data. Current Interpretive Data was last revised on 2017. Testing performed by: [facility] Heme Lab, [address] [place] [phone] Basophil pct 0.8 % [facility] Comment: Interpretive Data Percent cell count reference ranges are not reported, since discordance with absolute values may lead to misinterpretation of CBC data. Current Interpretive Data was last revised on 2017. Testing performed by: [facility] Heme Lab, [address] [place] [phone] Blood 06/24/2025 11:2 0 AM CDT 06/24/2025 11:39 AM CDT us Pepe Alejo MD PhD LAB BLOOD ORDERABLES Fin al Result [facility] Department [place] [address] * (ABNORMAL) CBC with auto differential (06/24/2025 11:20 AM CDT) WBC 1.78(L) 3.80 - 9.90 K/cumm Comment:Testing performed by : [facility] Heme Lab, [address] [place] [phone] Hgb 11.8(L) 11.9 - 15.5 g/dL [facility] Comment:Testing performed by : [facility] Heme Lab, [address] [place] [phone] Hct 34.7(L) 35.6 - 45.5 % [facility] Comment:Testing performed by : [facility] Heme Lab, [address] [place] [phone] Plt 75(L) 150 - 400 K/cumm [facility] Comment:Testing performed by : [facility] Heme Lab, [address] [place] [phone] MPV 8.7 6.8 - 10.4 fL [facility] Comment:Testing performed by : [facility] Heme Lab, [address] [place] [phone] RBC 3.86(L) 3.90 - 5.20 M/cumm [facility] Comment:Testing performed by : [facility] Heme Lab, [address] [place], [place] [phone] MCV 89.9 81.3 - 96.4 fL [facility] Comment:Testing performed by : [facility] Heme Lab, [address] [place], [place] [phone] MCH 30.7 27.1 - 33.3 pg [facility] Comment:Testing performed by : [facility] Heme Lab, [address] [place] [address] MCHC 34.2 32.3 - 35.7 g/dL [facility] Comment:Testing performed by : [facility] Heme Lab, [address] [place], [place] [phone] RDW CV 17.8(H) 11.1 - 14.9 % [facility] Comment:Testing performed by : [facility] Heme Lab, [address] [place], [place] [phone] NRBC abs 0.00 0.00 - 0.01 K/cumm [facility] Comment:Testing performed by : [facility] Heme Lab, [address] [place], [place] [phone] Blood 06/24/2025 11:2 0 AM CDT 06/24/2025 11:39 AM CDT Pepe Alejo MD PhD LAB BLOOD ORDERABLES Fin al Result [facility] Department [place] [address] * Type and screen (06/24/2025 11:20 AM CDT) Renita, indirect Negative ABO Rh A Positive [facility] Blood 06/24/2025 11:2 0 AM CDT 06/24/2025 11:52 AM CDT Narrative [facility] - 06/24/2025 1:36 PM CDT Has the patient had Daratumumab or Isatuximab in the past 6 months?->Unknown Pepe Alejo MD PhD LAB BLOOD BANK TEST MICKY TENORIO Final Result Performing Organization Address City/[facility]/ZIP Co de Phone Number [facility] Department [place] [address] * Lactate dehydrogenase (LD) (06/24/2025 11:20 AM CDT) Pathologist [facility] Lactate dehydrogenase (LDH) 189 100 - 250 Units/L Blood 06/24/2025 11:2 0 AM CDT 06/24/2025 11:39 AM CDT Pepe Alejo MD PhD LAB BLOOD ORDERABLES Fin al Result Performing Organization Address [facility] Co de Phone Number [facility] Department [place] [address] * (ABNORMAL) Comprehensive metabolic panel (06/24/2025 11:20 AM CDT) [facility] Sodium 144 135 - 145 mmol/L [...] Albumin 4.0 3.5 - 5.0 g/dL [facility] Alk phos 82 40 - 130 Units/L [facility] ALT 21 7 - 45 Units/L [facility] AST 25 10 - 45 Units/L [facility] Blood 06/24/2025 11:2 0 AM CDT 06/24/2025 11:39 AM CDT us Pepe Alejo MD PhD LAB BLOOD ORDERABLES Fin al Result [facility] [place] [address] from Last 3 Months Insurance MEDICARE [facility] MEDICARE IDPA Care Teams Heater Planer Operator Relationship Specialty Start Date End Date Reagan Fonseca MD [address] [place], [place] [phone] PCP - General Family Medicine 12/11/24 Pepe Alejo MD PhD [address] [facility] IM BONE MARROW TRANSPLANT, , [address] [place] [address] Medical Oncologist/Director Of Radio Services Medical Oncology 01/07/25 Armando Mar MD [address] [place] [address] Internal Medicine 03/18/25
--- OUTSIDE RECORDS SUMMARY | 2025-08-07 16:57 | XMS_ITS ---
Author Organization [facility] Address [address] [place] [address] Care Team Providers Care Wheel Installer Name Role Phone Reagan Fonseca MD [...]
== END 2025-08-07 11:30 | disposition home or self-care (01) ==
PROVIDERS: PCP Family Medicine; Visit Provider Internal Medicine Hematology
DX: D46.21 Refractory anemia with excess of blasts 1 (principal)
CPT/HCPCS: 80053; 81003; 85025; 85055; 96360; J7030

== ENCOUNTER 2025-08-19 10:39 | Outpatient (CLI) | payer MEDICARE, MEDICAID, SELFPAY ==
[2025-08-19 11:06] LABS: Hematocrit 39.0 % (35.0-49.0); Hemoglobin 12.7 g/dL (12.0-15.0); Mean Corpuscular HGB Conc 32.6 g/dL (32-36); Mean Corpuscular Hemoglobin 29.5 pg (27.0-31.0); Mean Corpuscular Volume 90.7 fL (78.0-102.0); Platelet Count Result 179 K/mm3 (150-420); Red Blood Count 4.30 M/mm3 (4.20-5.40); White Blood Count 3.8 K/mm3 (4.8-10.8)
[2025-08-19 11:22] LABS: Alanine Aminotransferase 18 U/L (6-35); Albumin Level 4.2 g/dL (3.5-5.1); Alkaline Phosphatase 90 U/L (38-126); Anion Gap 9 mmol/L (4-12); Aspartate Amino Transferase 26 U/L (14-36); Bilirubin,Total 0.4 mg/dL (0.2-1.3); Blood Urea Nitrogen 4 mg/dL (7-17); Calcium 9.0 mg/dL (8.4-10.2); Carbon Dioxide 30 mmol/L (22-30); Chloride 104 mmol/L (98-107); Estimated Glomerular Filt Rate > 60; Glucose 141 mg/dL (65-110); Osmolality Calculated 294 mOsm/kg (285-295); Potassium 3.0 mmol/L (3.4-5.0); Sodium 143 mmol/L (137-145); Total Protein 7.3 g/dL (6.3-8.2)
[2025-08-19 11:33] LABS: Band Neutrophils Percent 0 % (0-6); Basophils Absolute Manual 0.00 K/mm3 (0-0.1); Basophils Percent Manual 0 % (0-1); Eosinophils Absolute Manual 0.03 K/mm3 (0.02-0.50); Eosinophils Percent Manual 1 % (1-6); Lymphocytes Absolute Manual 1.74 K/mm3 (1.1-4.5); Lymphocytes Percent Manual 46 % (18-44); Monocytes Absolute Manual 0.38 K/mm3 (0.1-0.90); Monocytes Percent Manual 10 % (3-9); Myelocytes Percent 1 %; Neutrophils Absolute Manual 1.59 K/mm3 (1.3-6.7); Neutrophils Percent Manual 42 % (46-73); Total Cells Counted 100
[2025-08-19 11:40] VITALS: BP 149/76; PULSE 78; RESP 14; TEMP 36.6; O2SAT 97; BMI 31.2
[2025-08-19] MEDS: ONDANSETRON IVPB (12:00)
[2025-08-19] MEDS: SODIUM CHLORIDE 0.9% IVPB ×2 (12:00→12:37)
--- OUTSIDE RECORDS SUMMARY | 2025-08-19 12:12 | XMS_ITS ---
Author Organization Unknown Address [address] [place] [phone] Phone Care Team Providers Care Water Manager Name Role Phone JOHAN SULLIVAN Attending Unavailable Immunization Immunization Date Status Additional Notes Code Code System Tdap 03/26/2021 Completed 115 CVX Results CBC W/ DIFF - Collect Date/T sarah: 01/08/2025 13:23 [facility] ID: [id number] [address] [place] [address], [phone] LOINC: 16486-3 Test Value Unit Reference Range Code Code [...] H=36.0 L PLATELETS 43 10^3uL L=100 H=400 79358-7 LOINC L RDW 16.1 % L=11.7 H=15.5 H %GRAN L=40.0 H=70.0 70945-2 LOINC %LYMPH L=20.0 H=45.0 736-9 LOINC %MONO L=2.0 H=10.0 62340-0 LOINC %EOS L=0.0 H=6.0 713-8 LOINC %BASO L=0.0 H=3.0 706-2 LOINC #NEUT L=1.9 H=7.6 13182-7 LOINC #LYMPH L=0.9 H=4.9 37452-1 LOINC #MONO L=0.1 H=0.9 32677-2 LOINC #EOS L=0.0 H=0.6 712-0 LOINC #BASO L=0.00 H=0.10 70531-9 LOINC #IM GRANS L=0.0 H=7.0 49521-5 LOINC %IM GRANS L=0.0 H=5.0 52797-0 LOINC %NRB L=0.0 H=0.2 10066-5 LOINC #NRB L=0.000 H=0.012 77337-2 LOINC MANUAL DIFF SEE BELOW A SEG [...] L=0 H=0 BLASTS 0 % L=0 H=0 17344-9 LOINC PANDA LYMPHS 0.00 % L=0.00 H=5.00 SMUDGE CELLS 0 % L=0 H=0 NRBC 0.0 % L=0.0 H=0.0 PLTS DECREASED NEUT # 0.7 10^3uL L=1.9 H=7.6 LL LYMPH # 1.2 10^3uL L=0.9 H=4.9 MONO # 0.0 10^3uL L=0.1 H=0.9 L EOS # 0.1 10^3uL L=0.0 H=0.6 712-0 LOINC BASO # 0.0 10^3uL L=0.0 H=0.1 54129-8 LOINC RBC MORPH NOT INDICATED COMPREHENSIVE METABOLIC PANE L - Collect Date/Time: 01/08/2025 13:23 [facility] ID: [id number] [address] [place], [place], [phone] LOINC: 52019-4 Test Value Unit Reference Range Code Code [...] 2028-9 LOINC ANION GAP 10 L=10 H=20 10320-1 LOINC OSMOLALITY 288 mOs/kG L=280 H=296 35199-6 LOINC BUN/CREAT 13.3 3097-3 LOINC CALCIUM 8.9 mg/dL L=8.3 H=10.5 95424-8 LOINC AST 23 U/L L=15 H=46 1920-8 LOINC ALT 15 U/L L=9 H=72 1742-6 LOINC ALKALINE PHOS 61 U/L L=38 H=126 6768-6 LOINC TOTAL BILI 0.3 mg/dL L=0.2 H=1.3 1975-2 LOINC ALBUMIN 3.9 G/dL L=3.5 H=5.0 1751-7 LOINC TOTAL PROTEIN 7.6 g/L L=6.3 H=8.2 2885-2 LOINC A/G RATIO 1.1 37673-6 LOINC AGE 59 81849-0 LOINC eGFR NON-AFR 69 ml/min eGFR AFR AMER 83 ml/min Social History Type Status Start Date End Date Code Code Syst em Smoking History Unknown if ever smoked [id number] Sex Female Hospital Discharge Instructions Should you have any questions prior to discharge, please contact a member of your healthcare team. If you have left the hospital and have any questions, please contact your primary care physician. Reason For Referral No Data Found Plan of Treatment Picc Line Removal 03/27/2025 PICC Line Placement 03/27/2025 US Venous Right UE ([id number]) 03/27/2025 Encounters Encounter Diagnosis Start Date Code Code Sys tem Myelodysplastic syndrome, unspecified 01/08/2025 SNOMED-CT Personal Care Team Section Performer Name Performer Role Active Date Inactive LAURIE Hidalgo PCP - Primary care physician
--- OUTSIDE RECORDS SUMMARY | 2025-08-19 12:12 | XMS_ITS ---
Author Organization Unknown Address [address] [place] [phone] Phone Care Team Providers Care Kettle Hand Name Role Phone JOHAN SULLIVAN Attending Unavailable Immunization Immunization Date Status Additional Notes Code Code System Tdap 03/26/2021 Completed 115 CVX Results US GALLBLADDER - Completed: 12/25/2024 12:00 LOINC: \TM00\\12PI\\DRAo\\BM09\ \MRHo\ [address] [address] ---------NAME--------- NUMBER SEX AGE ADMIT DISC. XRAY# F/C TYPE CHUYITA TONY [id number] F 59 12/25/24 12/25/24 80966 MBJ O/P DATE OF : 1965 M/R# [id number] PH#: [phone] RM \MRHx\ LOCATION: TRANSCRIBED: 12/25/24 13:39 US GALLBLADDER 71550 COMPLETED:12/25/24 12:00 APC [id number] {REASON-US ABD: ABDOMINAL PAIN PHYSICIAN: JOHAN R [...] of gallstones or acute cholecystitis. Hepatic steatosis. NET SOFTWARE DEVELOPER \ITLo\ \UNDo\ \UNDx\ \ITLx\ Reviewed and Electronically Signed by: Ivan Acosta MD Signed Date: 12/25/24 13:39 Social History Type Status Start Date End Date Code Code Syst em Smoking History Unknown if ever smoked [id number] Sex Female Hospital Discharge Instructions Should you have any questions prior to discharge, please contact a member of your healthcare team. If you have left the hospital and have any questions, please contact your primary care physician. Reason For Referral No Data Found Plan of Treatment Picc Line Removal 03/27/2025 PICC Line Placement 03/27/2025 US Venous Right UE ([id number]) 03/27/2025 Encounters Encounter Diagnosis Start Date Code Code Sys tem Fatty (change of) liver, not elsewhere classified 04/2025 SNOMED-CT Personal Care Team Section Performer Name Performer Role Active Date Inactive LAURIE Hidalgo PCP - Primary care physician Imaging Narrative Notes [facility] 12/25/2024 13:42 [facility] [address] [place] [address] ---------NAME--------- NUMBER SEX AGE ADMIT DISC. XRAY# F/C TYPE CHUYITA TONY [id number] F 59 12/25/24 12/25/24 [address] [facility] O/P DATE OF : 1965 M/R# [id number] #: [id number] LOCATION: TRANSCRIBED: 12/25/24 13:39 US GALLBLADDER 90665 COMPLETED:12/25/24 12:00 APC 99586 {REASON-US ABD: ABDOMINAL PAIN PHYSICIAN: JOHAN RADIOLOGY [...] of gallstones or acute cholecystitis. Hepatic steatosis. NET SOFTWARE DEVELOPER Reviewed and Electronically Signed by: Ivan Acosta MD Signed Date: 12/25/24 13:39
--- OUTSIDE RECORDS SUMMARY | 2025-08-19 12:12 | XMS_ITS ---
Author Organization Unknown Address [address] [place] [phone] Phone Care Team Providers Care Sql Server Bi Developer Name Role Phone PIPPA KNOX Attending Unavailable JOHAN SULLIVAN Primary Unavailable Immunization Immunization Date Status Additional Notes Code Code System Tdap 03/26/2021 Completed 115 CVX Results US VENOUS RIGHT UE - Complet ed: 03/27/2025 09:54 LOINC: 58968-1 \TM00\\12PI\\DRAo\\BM09\ \MRHo\ [address] [address] ---------NAME--------- NUMBER SEX AGE ADMIT DISC. XRAY# F/C TYPE CHUYITA TONY [id number] F 60 03/27/25 27444 MB O/P DATE OF : 1965 M/R# [id number] PH#: [phone] RM 26-IF \MRHx\ LOCATION: TRANSCRIBED: 03/27/25 10:[place] [address] COMPLETED:03/27/25 9:54 [facility] [address] {REASON-US VENOUS RIGHT UE: MTELODYSPIASTIC SYNDROME PHYSICIAN: [...] or worsen, short-interval follow-up study is suggested. DESIGNER \ITLo\ \UNDo\ \UNDx\ \ITLx\ Reviewed and Electronically Signed by: Ivan Acosta MD Signed Date: 03/27/25 10:23 03/27/25.1026.AJH.to JOHAN via fax Social History Type Status Start Date End Date Code Code Syst em Smoking History Unknown if ever smoked [address] Sex Female Vital Signs Vital Sign Value Unit [place] Value [place] Unit Date/Time Recent/Initial? Code Code System Body Mass Index 32.26 kg/m2 03/27/2025 08:53 Initial 38485 -5 LOINC Systolic Blood Pressure 131 mm[Hg] 03/27/2025 08:52 Initial 8480- 6 LOINC Diastolic Blood Pressure 67 mm[Hg] 03/27/2025 08:52 Initial 8462- 4 LOINC Body Surface Area 2.10 m2 03/27/2025 08:53 Initial 3140- 1 LOINC Height 170.180 0 cm 67.00 in 03/27/2025 08:53 Initial 8302- 2 LOINC O2 Saturation 95 % 2024 08:52 Initial 65878 -5 LOINC Pulse 77.0 /min 03/27/2025 08:52 Initial 8867- 4 LOINC Respiration 22 /min 03/27/20 08:52 Initial 9279- 1 LOINC Temperature 36.7 Freda 98.1 F 03/27/20 08:52 Initial 8310- 5 LOINC Weight 93.44 kg 206.00 lbs 03/27/2025 08:53 Initial 76917 -7 LOINC Hospital Discharge Instructions Should you have any questions prior to discharge, please contact a member of your healthcare team. If you have left the hospital and have any questions, please contact your primary care physician. Reason For Referral No Data Found Procedures Procedure Name Date Status Code Code Syste m INSERTION PICC W/RS&I 5 YR/> completed 58348 CPT Plan of Treatment Picc Line Removal 03/27/2025 PICC Line Placement 03/27/2025 US Venous Right UE ([id number]) 03/27/2025 Encounters Encounter Diagnosis Start Date Code Code Sys tem Myelodysplastic syndrome, unspecified 03/27/2025 SNOMED-CT Personal Care Team Section Performer Name Performer Role Active Date Inactive LAURIE Hidalgo PCP - Primary care physician Imaging Narrative Notes [facility] 03/27/2025 10:26 [facility] [address] [place] [address] ---------NAME--------- NUMBER SEX AGE ADMIT DISC. XRAY# F/C TYPE CHUYITA TONY [id number] F 60 03/27/25 99555 MB O/P DATE OF : 1965 M/R# [id number] #: [id number] [id number] LOCATION: TRANSCRIBED: 03/27/25 10:[place] [address] COMPLETED:03/27/25 9:54 [facility] [address] {REASON-US VENOUS RIGHT UE: MTELODYSPIASTIC SYNDROME PHYSICIAN: [...] or worsen, short-interval follow-up study is suggested. DESIGNER Reviewed and Electronically Signed by: Ivan Acosta MD Signed Date: 03/27/25 10:23 03/27/25.1026.AJH.david PRADO via fax
--- OUTSIDE RECORDS SUMMARY | 2025-08-19 12:12 | XMS_ITS ---
Author Organization Unknown Address [address] [place] [phone] Phone Care Team Providers Care Rougher Helper Name Role Phone PIPPA GREGORIONISHA Attending Unavailable JOHAN SULLIVAN Primary Unavailable Immunization Immunization Date Status Additional Notes Code Code System Tdap 03/26/2021 Completed 115 CVX Social History Type Status Start Date End Date Code Code Syst em Smoking History Unknown if ever smoked [id number] Sex Female Vital Signs Vital Sign Value Unit Est[place] Value Estill Unit Date/Time Recent/Initial? Code Code System Body Mass Index 34.97 kg/m2 02/04/2025 09:56 Initial 22685 -5 [facility] Systolic Blood Pressure 168 mm[Hg] 02/04/2025 09:53 Initial 8480- 6 LOINC Diastolic Blood Pressure 73 mm[Hg] 02/04/2025 09:53 Initial 8462- 4 INC Body Surface Area 2.24 m2 02/04/2025 09:56 Initial 3140- 1 LOINC Height 172.720 0 cm 68.00 in 02/04/2025 09:56 Initial 8302- 2 LOINC O2 Saturation 100 % 2024 09:53 Initial 78572 -5 LOINC Pulse 99.0 /min 02/04/2025 09:53 Initial 8867- 4 LOINC Respiration 22 /min 02/05/20 09:53 Initial 9279- 1 LOINC Temperature 36.3 Freda 97.3 F 02/05/20 09:53 Initial 8310- 5 LOINC Weight 104.33 kg 230.00 lbs 02/04/2025 09:56 Initial 66773 -7 INC Hospital Discharge Instructions Should you have any questions prior to discharge, please contact a member of your healthcare team. If you have left the hospital and have any questions, please contact your primary care physician. Reason For Referral No Data Found Plan of Treatment Picc Line Removal 03/27/2025 PICC Line Placement 03/27/2025 US Venous Right UE ([id number]) 03/27/2025 Encounters Encounter Diagnosis Start Date Code Code Sys tem Myelodysplastic syndrome, unspecified 02/04/2025 SNOMED-CT Personal Care Team Section Performer Name Performer Role Active Date Inactive LAURIE Hidalgo PCP - Primary care physician
--- OUTSIDE RECORDS SUMMARY | 2025-08-19 12:12 | XMS_ITS | Clinical Summary ---
Author Organization [facility] Address [address] [place] [address] Care Team Providers Care Neurology Physician Name Role Phone Reagan Fonseca MD Primary Care Provide r Pepe Alejo MD PhD Unavailable Armando Mar MD Unavailable [phone] Allergies Active Allergy Reactions Criticality Noted Date Comments Amoxicillin Shortness of breath, Nausea And Vomiting,Swelling High 01/26/2025 Penicillin G Shortness of breath,Swelling High 03/14 Medications acyclovir (ZOVIRAX) 400 mg tabletIndications:M DS (myelodysplastic syndrome) ([facility]) Take 1 tablet (400 mg total) by mouth 2 (two) times a day 5 Active albuterol 2.5 mg /3 mL (0.083 %) nebulizer solutionIndications :MDS (myelodysplastic syndrome) ([facility]) Inhale 3 mL (2.5 mg total) every 6 (six) hours as needed 5 Active albuterol HFA (PROVENTIL HFA,VENTOLIN HFA,PROAIR HFA) 90 mcg/actuation inhalerIndications: MDS (myelodysplastic syndrome) ([facility]) Inhale 2 puffs every 6 (six) hours as needed 5 Active ALPRAZolam (XANAX) 0.25 mg tabletIndications:M DS (myelodysplastic syndrome) ([facility]) Take 1 tablet (0.25 mg total) by mouth nightly as needed Active fluconazole (DIFLUCAN) 150 mg tabletIndications:M DS (myelodysplastic syndrome) ([facility]) Take 1 tablet (150 mg total) by mouth daily 5 Active Advair HFA 115-21 mcg/actuation inhalerIndications: MDS (myelodysplastic syndrome) ([facility]) Inhale 2 puffs 2 (two) times a day 5 Active oxyCODONE (ROXICODONE) 5 mg immediate release tabletIndications:M DS (myelodysplastic syndrome) ([facility]) Take 1 tablet (5 mg total) by mouth every 6 (six) hours as needed [address] (PROTONIX) 40 mg EC tabletIndications:M DS (myelodysplastic syndrome) ([facility]) Take 1 tablet (40 mg total) by mouth daily 5 Active Senexon-S 8.6-50 mgIndications:MDS (myelodysplastic syndrome) ([facility]) Take 2 tablets by mouth 2 (two) times a day 5 Active traZODone (DESYREL) 100 mg tabletIndications:M DS (myelodysplastic syndrome) ([facility]) Take 1 tablet (100 mg total) by mouth daily Active ciprofloxacin (CIPRO) 500 mg tabletIndications:M DS (myelodysplastic syndrome) ([facility]) TAKE 1 TABLET BY MOUTH TWICE A [...] (COMPAZINE) 10 mg tabletIndications:M DS (myelodysplastic syndrome) ([facility]) TAKE 1 TABLET BY MOUTH ONCE EVERY 8 HOURS NEEDED FOR NAUSEA AND VOMITING 5 Active posaconazole (NOXAFIL) 100 mg tablet,delayed release (DR/EC)Indications: MDS (myelodysplastic syndrome) ([facility]) TAKE 3 TABLETS TWICE DAILY FOR ONE DAY THEN 3 TABLETS DAILY*PA DENIED 5 Active ondansetron ODT (ZOFRAN-ODT) 8 mg disintegrating tabletIndications:M DS (myelodysplastic syndrome) ([facility]) DISSOLVE 1 TABLET ON THE TONGUE EVERY 8 HOURS NEEDED FOR NAUSEA 5 Active Active Problems Problem Noted Date Diagnosed Date MDS (myelodysplastic syndrome) 03/14/2025 Encounters Date Type Department Care Team Description 06/24/2025 12:30 PM CDT Clinical Support [facility] - Lab Collection [address] [place] [address] 06/24/2025 11:30 AM CDT Clinical Support [facility] - Lab Collection [address] [place] [address] MDS (myelodysplastic syndrome) ([facility]) 06/24/2025 11:15 AM CDT Office Visit [facility] Medicine Bone Marrow Transplant [address] [place] [phone] Pepe Alejo MD PhD MDS (myelodysplastic syndrome) ([facility]) (Primary Dx) 06/24/2025 10:15 AM CDT Lab [facility] Medicine Oncology Lab [address] [place] [phone] 06/10/2025 Telephone [facility] Medicine Scheduling [address] [place] [address] Inna Wu from Last 3 Months Immunizations [...] on file Legal Sex Female 3:26 PM RN TELEPHONIC Gender Identity Not on file Sexual Orientation [...] LAB BLOOD ORDERABLES Fin al Result [facility] Department [place] [address] * (ABNORMAL) Differential, auto (06/24/2025 11:20 AM CDT) Neutrophil abs 0.63(L) 1.50 - 6.50 K/cumm Comment:Testing performed by : [facility], [address] [place] [phone] Lymphocyte abs 1.04 0.80 - 3.30 K/cumm [facility] Comment:Testing performed by : [facility], [address] [place], [place] [phone] Monocyte abs 0.08(L) 0.20 - 0.80 K/cumm [facility] Comment:Testing performed by : [facility], [address] [place] [address] Eosinophil abs 0.02 0.00 - 0.50 K/cumm [facility] Comment:Testing performed by : [facility], [address] [place], [place] [phone] Basophil abs 0.01 0.00 - 0.10 K/cumm [facility] Comment:Testing performed by : [facility], [address] [place], [place] [phone] Neutrophil pct 35.2 % [facility] Comment: Interpretive Data Percent cell count reference ranges are not reported, since discordance with absolute values may lead to misinterpretation of CBC data. Current Interpretive Data was last revised on 2017. Testing performed by: [facility], [address] [place], [place] [phone] Lymphocyte pct 58.4 % [facility] Comment: Interpretive Data Percent cell count reference ranges are not reported, since discordance with absolute values may lead to misinterpretation of CBC data. Current Interpretive Data was last revised on 2017. Testing performed by: [facility], [address] [place] [address] Monocyte pct 4.4 % [facility] Comment: Interpretive Data Percent cell count reference ranges are not reported, since discordance with absolute values may lead to misinterpretation of CBC data. Current Interpretive Data was last revised on 2017. Testing performed by: [facility], [address] [place] [address] Eosinophil pct 1.3 % [facility] Comment: Interpretive Data Percent cell count reference ranges are not reported, since discordance with absolute values may lead to misinterpretation of CBC data. Current Interpretive Data was last revised on 2017. Testing performed by: [facility], [address] [place] [phone] Basophil pct 0.8 % [facility] Comment: Interpretive Data Percent cell count reference ranges are not reported, since discordance with absolute values may lead to misinterpretation of CBC data. Current Interpretive Data was last revised on 2017. Testing performed by: [facility], [address] [place] [phone] Blood 06/24/2025 11:2 0 AM CDT 06/24/2025 11:39 AM CDT us Pepe Alejo MD PhD LAB BLOOD ORDERABLES Fin al Result [facility] Department [place] [address] * (ABNORMAL) CBC with auto differential (06/24/2025 11:20 AM CDT) WBC 1.78(L) 3.80 - 9.90 K/cumm Comment:Testing performed by : [facility], [address] [place] [phone] Hgb 11.8(L) 11.9 - 15.5 g/dL [facility] Comment:Testing performed by : [facility], [address] [place] [phone] Hct 34.7(L) 35.6 - 45.5 % [facility] Comment:Testing performed by : [facility], [address] [place] [phone] Plt 75(L) 150 - 400 K/cumm [facility] Comment:Testing performed by : [facility], [address] [place] [phone] MPV 8.7 6.8 - 10.4 fL [facility] Comment:Testing performed by : [facility], [address] [place] [phone] RBC 3.86(L) 3.90 - 5.20 M/cumm [facility] Comment:Testing performed by : [facility], [address] [place], [place] [phone] MCV 89.9 81.3 - 96.4 fL [facility] Comment:Testing performed by : [facility], [address] [place], [place] [phone] MCH 30.7 27.1 - 33.3 pg [facility] Comment:Testing performed by : [facility], [address] [place] [address] MCHC 34.2 32.3 - 35.7 g/dL [facility] Comment:Testing performed by : [facility], [address] [place], [place] [phone] RDW CV 17.8(H) 11.1 - 14.9 % [facility] Comment:Testing performed by : [facility], [address] [place], [place] [phone] NRBC abs 0.00 0.00 - 0.01 K/cumm [facility] Comment:Testing performed by : [facility], [address] [place], [place] [phone] Blood 06/24/2025 11:2 0 AM CDT 06/24/2025 11:39 AM CDT Pepe Alejo MD PhD LAB BLOOD ORDERABLES Fin al Result [facility] Department [place] [address] * Type and screen (06/24/2025 11:20 AM CDT) Renita, indirect Negative ABO Rh A Positive [facility] Blood 06/24/2025 11:2 0 AM CDT 06/24/2025 11:52 AM CDT Narrative [facility] - 06/24/2025 1:36 PM CDT Has the patient had Daratumumab or Isatuximab in the past 6 months?->Unknown Pepe Alejo MD PhD LAB BLOOD BANK TEST MICKY TENORIO Final Result Performing Organization Address City/[facility]/ZIP Co de Phone Number [facility] Department [place] [address] * Lactate dehydrogenase (LD) (06/24/2025 11:20 AM CDT) Pathologist [facility] Lactate dehydrogenase (LDH) 189 100 - 250 Units/L Blood 06/24/2025 11:2 0 AM CDT 06/24/2025 11:39 AM CDT Pepe Alejo MD PhD LAB BLOOD ORDERABLES Fin al Result Performing Organization Address [facility] Co de Phone Number [facility] Department [place] [address] * (ABNORMAL) Comprehensive metabolic panel (06/24/2025 11:20 AM CDT) [facility] Sodium 144 135 - 145 mmol/L Potassium, pl 3.1(L) 3.3 - 4.9 mmol/L [facility] Chloride 105 97 - 110 mmol/L [facility] CO2 28 22 - 32 mmol/L [facility] Anion gap 11 2 - 15 mmol/L [facility] BUN 10 6 - 25 mg/dL [facility] Creatinine 0.70 0.60 - 1.10 mg/dL [facility] Glucose 133 70 - 199 mg/dL [facility] Comment: Interpretive Data Fasting glucose >/= [...] 2022. Calcium 8.8 8.5 - 10.3 mg/dL [facility] Bilirubin, total 0.3 0.1 - 1.2 mg/dL [facility] Protein, pl 7.0 6.5 - 8.5 g/dL [facility] Albumin 4.0 3.5 - 5.0 g/dL [facility] Alk phos 82 40 - 130 Units/L [facility] ALT 21 7 - 45 Units/L [facility] AST 25 10 - 45 Units/L [facility] Blood 06/24/2025 11:2 0 AM CDT 06/24/2025 11:39 AM CDT us Pepe Alejo MD PhD LAB BLOOD ORDERABLES Fin al Result [facility] Department [place] [address] from Last 3 Months Insurance MEDICARE [facility] MEDICARE IDPA Care Teams Neurology Physician Relationship Specialty Start Date End Date Reagan Fonseca MD [address] [place], [place] [phone] PCP - General Family Medicine 12/11/24 Pepe Alejo MD PhD [address] [facility] 8 DIV IM BONE MARROW TRANSPLANT, , [address] [place] [address] Medical Oncologist/Real Estate Closing Coordinator Medical Oncology 01/07/25 Armando Mar MD [address] [place] [address] Internal Medicine 03/18/25
--- OUTSIDE RECORDS SUMMARY | 2025-08-19 12:12 | XMS_ITS ---
Author Organization [facility] Address [address] [place] [address] Care Team Providers Care Certified Orthotic Fitter Name Role Phone Reagan Fonseca MD Primary [...]
--- OUTSIDE RECORDS SUMMARY | 2025-08-19 12:12 | XMS_ITS ---
Author Organization Unknown Address [address] [place] [phone] Phone Care Team Providers Care Outpatient Interviewing Clerk Name Role Phone PIPPA KNOX Attending Unavailable JOHAN SULLIVAN Primary Unavailable Immunization Immunization Date Status Additional Notes Code Code System Tdap 03/26/2021 Completed 115 CVX Results CBC W/ DIFF - Collect Date/T sarah: 01/23/2025 14:13 [facility] ID: [id number] [address] [place] [address], [id number] LOINC: 13111-7 Test Value Unit Reference Range Code Code [...] H=36.0 L PLATELETS 32 10^3uL L=100 H=400 20938-3 LOINC L RDW 17.1 % L=11.7 H=15.5 H %GRAN L=40.0 H=70.0 34916-6 LOINC %LYMPH L=20.0 H=45.0 736-9 LOINC %MONO L=2.0 H=10.0 34999-5 LOINC %EOS L=0.0 H=6.0 713-8 LOINC %BASO L=0.0 H=3.0 706-2 LOINC #NEUT L=1.9 H=7.6 50351-0 LOINC CALLED TO: CHRISTOPH MÁRQUEZ AT: 1448 01/23/25 BY: SDK #LYMPH L=0.9 H=4.9 04011-7 LOINC #MONO L=0.1 H=0.9 16300-1 LOINC #EOS L=0.0 H=0.6 712-0 LOINC #BASO L=0.00 H=0.10 58900-3 LOINC #IM GRANS L=0.0 H=7.0 39820-3 LOINC %IM GRANS L=0.0 H=5.0 51549-2 LOINC %NRB L=0.0 H=0.2 79541-7 LOINC #NRB L=0.000 H=0.012 06114-6 LOINC MANUAL DIFF SEE BELOW A SEG [...] L=0 H=0 BLASTS 0 % L=0 H=0 30433-5 LOINC PANDA LYMPHS 10.00 % L=0.00 H=5.00 H SMUDGE CELLS 0 % L=0 H=0 NRBC 0.0 % L=0.0 H=0.0 PLTS DECREASED NEUT # 0.6 10^3uL L=1.9 H=7.6 LL LYMPH # 1.0 10^3uL L=0.9 H=4.9 MONO # 0.1 10^3uL L=0.1 H=0.9 EOS # 0.1 10^3uL L=0.0 H=0.6 712-0 LOINC BASO # 0.0 10^3uL L=0.0 H=0.1 19884-7 LOINC RBC MORPH NOT INDICATED COMPREHENSIVE METABOLIC PANE L - Collect Date/Time: 01/23/2025 14:13 [facility] ID: [id number] [address] [place], [place], [id number] LOINC: 88630-6 Test Value Unit Reference Range Code Code [...] 2028-9 LOINC ANION GAP 9 L=10 H=20 72994-1 LOINC L OSMOLALITY 291 mOs/kG L=280 H=296 64743-5 LOINC BUN/CREAT 13.8 3097-3 LOINC CALCIUM 8.7 mg/dL L=8.3 H=10.5 69035-5 LOINC AST 20 U/L L=15 H=46 1920-8 LOINC ALT 12 U/L L=9 H=72 1742-6 LOINC ALKALINE PHOS 71 U/L L=38 H=126 6768-6 LOINC TOTAL BILI 0.2 mg/dL L=0.2 H=1.3 1975-2 LOINC ALBUMIN 3.7 G/dL L=3.5 H=5.0 1751-7 LOINC TOTAL PROTEIN 6.8 g/L L=6.3 H=8.2 2885-2 LOINC A/G RATIO 1.2 75786-1 LOINC AGE 59 46418-1 LOINC eGFR NON-AFR 79 ml/min eGFR AFR AMER 96 ml/min BB ABO AND RH TYPE - Collect Date/Time: 01/23/2025 14:13 [facility] ID: [id number] [address] [place], [place], [id number] LOINC: 43162-2 Test Value Unit Reference Range Code Code System Flag ABO TYPE A 883-9 LOINC RH TYPE POSITIVE BB RETYPE ABO AND RH TYPE - Collect Date/Time: 01/23/2025 14:13 [facility] ID: [id number] [address] [place], [place], [id number] LOINC: 93140-2 Test Value Unit Reference Range Code Code System Flag ABO TYPE A 883-9 LOINC RH TYPE POSITIVE Social History Type Status Start Date End Date Code Code Syst em Smoking History Unknown if ever smoked [id number] Sex Female Hospital Discharge Instructions Should you have any questions prior to discharge, please contact a member of your healthcare team. If you have left the hospital and have any questions, please contact your primary care physician. Reason For Referral No Data Found Plan of Treatment Picc Line Removal 03/27/2025 PICC Line Placement 03/27/2025 US Venous Right UE (35316) 03/27/2025 Encounters Encounter Diagnosis Start Date Code Code Sys tem Myelodysplastic syndrome, unspecified 01/23/2025 SNOMED-CT Personal Care Team Section Performer Name Performer Role Active Date Inactive LAURIE Hidalgo PCP - Primary care physician
--- OUTSIDE RECORDS SUMMARY | 2025-08-19 12:12 | XMS_ITS | Encounter Summary ---
Author Organization [facility] Address [address] [place] [address] Care Team Providers Care Manager Of Investigations Name Role Phone Reagan Fonseca MD Primary Care Provider [phone] Encounter Details Date Type Department Care Team (Late st Contact Info) Description 12/03/2017 Abstract [facility] CONVERSION [address] [place] [address] , Generic Conversion, Social History Tobacco Use [...] on filedocumented in this encounter Care Teams Manager Of Investigations Relationship Specialty Start Date End Date Reagan Fonseca MD [address] [place] [address] PCP - General FAMILY PRACTICE 01/26/25 documented as of this encounter
--- OUTSIDE RECORDS SUMMARY | 2025-08-19 12:12 | XMS_ITS | Clinical Summary ---
Author Organization [facility] Address [address] [place] [address] Care Team Providers Care Retail Greeting Card Merchandiser Name Role Phone Reagan Fonseca MD Primary Care Provider [phone] Allergies Active Allergy Reactions Criticality Noted Date [...] from your doctor or pharmacy? Rarely 03/08/2025 [facility] Utilities Answer Date Recorded In the past 12 months has [facility] [employer], [employer], or water [employer] threatened to shut off services in your [...] How often do you attend hindu or jainism serv ices? Never 03/08/2025 Do you belong [...] medical care, and heating? Patient declined 03/08/2025 [facility] of Occupat ional [facility] - Occupational Stress Questionnaire Answer Date [...] any time in the past 12 m [facility], were you homeless or [...] complete this topic Insurance [address] [place] [address] MEDICAID MEDICARE Advance Directives * Full Code (Latest Code Status on File) Date Activated Date Inactivated Comments 03/07/2025 10:49 PM 03/12/2025 8:04 PM Care Teams Retail Greeting Card Merchandiser Relationship Specialty Start Date End Date Reagan Fonseca MD [address] [place] [address] PCP - General FAMILY PRACTICE 01/26/25
--- OUTSIDE RECORDS SUMMARY | 2025-08-19 12:12 | XMS_ITS | Encounter Summary ---
Author Organization [facility] Address [address] [place] [address] Care Team Providers Care Outpatient Psychiatrist Name Role Phone Reagan Fonseca MD Primary Care Provider [phone] Encounter Details Date Type Department Care Team (Late st Contact Info) Description 02/24/2019 Abstract [facility] CONVERSION [address] [place] [address] , Generic Conversion, Social History Tobacco Use [...] on filedocumented in this encounter Care Teams Outpatient Psychiatrist Relationship Specialty Start Date End Date Reagan Fonseca MD [address] [place] [address] PCP - General FAMILY PRACTICE 01/26/25 documented as of this encounter
[2025-08-19] MEDS: DECITABINE IVPB (12:37)
[2025-08-19] MEDS: SODIUM CHLORIDE 0.9% IV 250 ML 10 ML IVPB (12:40)
[2025-08-19] MEDS: HEPARIN SODIUM LOCK FLUSH 500 UNITS/5 ML SYRINGE IV PUSH (13:40)
[2025-08-19 13:53] VITALS: BP 140/80; PULSE 78; RESP 14; O2SAT 96
== END 2025-08-19 10:40 | disposition home or self-care (01) ==
PROVIDERS: PCP Family Medicine; Visit Provider Internal Medicine Hematology
DX: Z51.11 Encounter for antineoplastic chemotherapy (principal); D46.21 Refractory anemia with excess of blasts 1
CPT/HCPCS: 36415; 36591; 80053; 85025; 96367; 96413; J0894; J2405; J7050

== ENCOUNTER 2025-08-21 10:55 | Outpatient (CLI) | payer MEDICARE, MEDICAID, SELFPAY ==
[2025-08-21 11:12] VITALS: BP 133/73; PULSE 78; RESP 16; TEMP 36.5; O2SAT 97; BMI 30.2
[2025-08-21] MEDS: SODIUM CHLORIDE 0.9% IVPB ×2 (11:39→12:01)
[2025-08-21] MEDS: ONDANSETRON IVPB (11:39)
[2025-08-21] MEDS: SODIUM CHLORIDE 0.9% IV 250 ML 10 ML IVPB (11:40)
[2025-08-21] MEDS: DECITABINE IVPB (12:01)
--- OUTSIDE RECORDS SUMMARY | 2025-08-21 12:32 | XMS_ITS | Encounter Summary ---
Author Organization [facility] Address [address] [place] [address] Care Team Providers Care Wood Handler Name Role Phone Reagan Fonseca MD Primary Care Provider [phone] Encounter Details Date Type Department Care Team (Late st Contact Info) Description 02/24/2019 Abstract [facility] CONVERSION [address] [place] [address] , Generic Conversion, Social History Tobacco Use [...] on filedocumented in this encounter Care Teams Wood Handler Relationship Specialty Start Date End Date Reagan Fonseca MD [address] [place] [address] PCP - General FAMILY PRACTICE 01/26/25 documented as of this encounter
--- OUTSIDE RECORDS SUMMARY | 2025-08-21 12:32 | XMS_ITS | Clinical Summary ---
Author Organization [facility] Address [address] [place] [address] Care Team Providers Care Glass Designer Name Role Phone Reagan Fonseca MD Primary Care Provider [phone] Allergies Active Allergy Reactions Criticality Noted Date [...] from your doctor or pharmacy? Rarely 03/08/2025 [facility] Utilities Answer Date Recorded In the past 12 months has [facility] [employer], [employer], or water [employer] threatened to shut off services in your [...] week 03/08/2025 How often do you attend taoist or yazdanism serv ices? Never 03/08/2025 Do you belong to any clubs o r organizations such as taoist groups, unions, fraternal or athletic groups, or [...] medical care, and heating? Patient declined 03/08/2025 [facility] of Occupat ional [facility] - Occupational Stress Questionnaire Answer Date Recorded [...] time in the past 12 m [facility], were you homeless or living in a half-way (including now)? No 03/08/2025 Comments No Sex [...] complete this topic Insurance [address] [place] [address] MEDICAID MEDICARE Advance Directives * Full Code (Latest Code Status on File) Date Activated Date Inactivated Comments 03/07/2025 10:49 PM 03/12/2025 8:04 PM Care Teams Glass Designer Relationship Specialty Start Date End Date Reagan Fonseca MD [address] [place] [address] PCP - General FAMILY PRACTICE 01/26/25
--- OUTSIDE RECORDS SUMMARY | 2025-08-21 12:32 | XMS_ITS | Encounter Summary ---
Author Organization [facility] Address [address] [place] [address] Care Team Providers Care Electroplater Name Role Phone Reagan Fonseca MD Primary Care Provider [phone] Encounter Details Date Type Department Care Team (Late st Contact Info) Description 12/03/2017 Abstract [facility] CONVERSION [address] [place] [address] , Generic Conversion, Social History Tobacco Use [...] on filedocumented in this encounter Care Teams Electroplater Relationship Specialty Start Date End Date Reagan Fonseca MD [address] [place] [address] PCP - General FAMILY PRACTICE 01/26/25 documented as of this encounter
--- OUTSIDE RECORDS SUMMARY | 2025-08-21 12:32 | XMS_ITS ---
Author Organization Unknown Address [address] [place] [phone] Phone Care Team Providers Care Professor Of Mechanical Engineering Name Role Phone JOHAN SULLIVAN Attending Unavailable Immunization Immunization Date Status Additional Notes Code Code System Tdap 03/26/2021 Completed 115 CVX Results CBC W/ DIFF - Collect Date/T sarah: 01/08/2025 13:23 [facility] ID: [id number] [address] [place] [address], [phone] LOINC: 75284-9 Test Value Unit Reference Range Code Code [...] H=36.0 L PLATELETS 43 10^3uL L=100 H=400 74628-3 LOINC L RDW 16.1 % L=11.7 H=15.5 H %GRAN L=40.0 H=70.0 14147-7 LOINC %LYMPH L=20.0 H=45.0 736-9 LOINC %MONO L=2.0 H=10.0 69109-3 LOINC %EOS L=0.0 H=6.0 713-8 LOINC %BASO L=0.0 H=3.0 706-2 LOINC #NEUT L=1.9 H=7.6 69113-4 LOINC #LYMPH L=0.9 H=4.9 51200-9 LOINC #MONO L=0.1 H=0.9 23849-8 LOINC #EOS L=0.0 H=0.6 712-0 LOINC #BASO L=0.00 H=0.10 06055-7 LOINC #IM GRANS L=0.0 H=7.0 32264-2 LOINC %IM GRANS L=0.0 H=5.0 27283-9 LOINC %NRB L=0.0 H=0.2 20908-5 LOINC #NRB L=0.000 H=0.012 07059-6 LOINC MANUAL DIFF SEE BELOW A SEG [...] L=0 H=0 BLASTS 0 % L=0 H=0 97253-3 LOINC PANDA LYMPHS 0.00 % L=0.00 H=5.00 SMUDGE CELLS 0 % L=0 H=0 NRBC 0.0 % L=0.0 H=0.0 PLTS DECREASED NEUT # 0.7 10^3uL L=1.9 H=7.6 LL LYMPH # 1.2 10^3uL L=0.9 H=4.9 MONO # 0.0 10^3uL L=0.1 H=0.9 L EOS # 0.1 10^3uL L=0.0 H=0.6 712-0 LOINC BASO # 0.0 10^3uL L=0.0 H=0.1 38995-5 LOINC RBC MORPH NOT INDICATED COMPREHENSIVE METABOLIC PANE L - Collect Date/Time: 01/08/2025 13:23 [facility] ID: [id number] [address] [place], [place], [phone] LOINC: 78190-7 Test Value Unit Reference Range Code Code [...] 2028-9 LOINC ANION GAP 10 L=10 H=20 15285-1 LOINC OSMOLALITY 288 mOs/kG L=280 H=296 77593-7 LOINC BUN/CREAT 13.3 3097-3 LOINC CALCIUM 8.9 mg/dL L=8.3 H=10.5 50151-7 LOINC AST 23 U/L L=15 H=46 1920-8 LOINC ALT 15 U/L L=9 H=72 1742-6 LOINC ALKALINE PHOS 61 U/L L=38 H=126 6768-6 LOINC TOTAL BILI 0.3 mg/dL L=0.2 H=1.3 1975-2 LOINC ALBUMIN 3.9 G/dL L=3.5 H=5.0 1751-7 LOINC TOTAL PROTEIN 7.6 g/L L=6.3 H=8.2 2885-2 LOINC A/G RATIO 1.1 62683-3 LOINC AGE 59 47843-9 LOINC eGFR NON-AFR 69 ml/min eGFR AFR AMER 83 ml/min Social History Type Status Start Date End Date Code Code Syst em Smoking History Unknown if ever smoked [address] Sex Female Hospital Discharge Instructions Should you have any questions prior to discharge, please contact a member of your healthcare team. If you have left the hospital and have any questions, please contact your primary care physician. Reason For Referral No Data Found Plan of Treatment Picc Line Removal 03/27/2025 PICC Line Placement 03/27/2025 US Venous Right UE ([id number]) 03/27/2025 Encounters Encounter Diagnosis Start Date Code Code Sys tem Myelodysplastic syndrome, unspecified 01/08/2025 SNOMED-CT Personal Care Team Section Performer Name Performer Role Active Date Inactive LAURIE Hidalgo PCP - Primary care physician
--- OUTSIDE RECORDS SUMMARY | 2025-08-21 12:32 | XMS_ITS ---
Author Organization Unknown Address [address] [place] [phone] Phone Care Team Providers Care Concrete Curer Name Role Phone PIPPA KNOX Attending Unavailable JOHAN SULLIVAN Primary Unavailable Immunization Immunization Date Status Additional Notes Code Code System Tdap 03/26/2021 Completed 115 CVX Results CBC W/ DIFF - Collect Date/T sarah: 01/23/2025 14:13 [facility] ID: [id number] [address] [place] [address], [phone] LOINC: 22247-3 Test Value Unit Reference Range Code Code [...] H=36.0 L PLATELETS 32 10^3uL L=100 H=400 41443-7 LOINC L RDW 17.1 % L=11.7 H=15.5 H %GRAN L=40.0 H=70.0 58538-4 LOINC %LYMPH L=20.0 H=45.0 736-9 LOINC %MONO L=2.0 H=10.0 71553-5 LOINC %EOS L=0.0 H=6.0 713-8 LOINC %BASO L=0.0 H=3.0 706-2 LOINC #NEUT L=1.9 H=7.6 36298-7 LOINC CALLED TO: CHRISTOPH MÁRQUEZ AT: 1448 01/23/25 BY: SDK #LYMPH L=0.9 H=4.9 15539-3 LOINC #MONO L=0.1 H=0.9 47595-3 LOINC #EOS L=0.0 H=0.6 712-0 LOINC #BASO L=0.00 H=0.10 43130-2 LOINC #IM GRANS L=0.0 H=7.0 85980-7 LOINC %IM GRANS L=0.0 H=5.0 54634-0 LOINC %NRB L=0.0 H=0.2 94078-6 LOINC #NRB L=0.000 H=0.012 03260-4 LOINC MANUAL DIFF SEE BELOW A SEG [...] L=0 H=0 BLASTS 0 % L=0 H=0 92818-0 LOINC PANDA LYMPHS 10.00 % L=0.00 H=5.00 H SMUDGE CELLS 0 % L=0 H=0 NRBC 0.0 % L=0.0 H=0.0 PLTS DECREASED NEUT # 0.6 10^3uL L=1.9 H=7.6 LL LYMPH # 1.0 10^3uL L=0.9 H=4.9 MONO # 0.1 10^3uL L=0.1 H=0.9 EOS # 0.1 10^3uL L=0.0 H=0.6 712-0 LOINC BASO # 0.0 10^3uL L=0.0 H=0.1 97552-2 LOINC RBC MORPH NOT INDICATED COMPREHENSIVE METABOLIC PANE L - Collect Date/Time: 01/23/2025 14:13 [facility] [address] ID: [id number] [address] [place], [place], [phone] LOINC: 61075-0 Test Value Unit Reference Range Code Code [...] 2028-9 LOINC ANION GAP 9 L=10 H=20 02072-9 LOINC L OSMOLALITY 291 mOs/kG L=280 H=296 67387-0 LOINC BUN/CREAT 13.8 3097-3 LOINC CALCIUM 8.7 mg/dL L=8.3 H=10.5 04005-0 LOINC AST 20 U/L L=15 H=46 1920-8 LOINC ALT 12 U/L L=9 H=72 1742-6 LOINC ALKALINE PHOS 71 U/L L=38 H=126 6768-6 LOINC TOTAL BILI 0.2 mg/dL L=0.2 H=1.3 1975-2 LOINC ALBUMIN 3.7 G/dL L=3.5 H=5.0 1751-7 LOINC TOTAL PROTEIN 6.8 g/L L=6.3 H=8.2 2885-2 LOINC A/G RATIO 1.2 75895-2 LOINC AGE 59 60309-9 LOINC eGFR NON-AFR 79 ml/min eGFR AFR AMER 96 ml/min BB ABO AND RH TYPE - Collect Date/Time: 01/23/2025 14:13 [facility] [address] ID: [id number] [address] [place], [place], [phone] LOINC: 21287-8 Test Value Unit Reference Range Code Code System Flag ABO TYPE A 883-9 LOINC RH TYPE POSITIVE BB RETYPE ABO AND RH TYPE - Collect Date/Time: 01/23/2025 14:13 [facility] ID: [id number] [address] [place], [place], [phone] LOINC: 94268-0 Test Value Unit Reference Range Code Code System Flag ABO TYPE A 883-9 LOINC RH TYPE POSITIVE Social History Type Status Start Date End Date Code Code Syst em Smoking History Unknown if ever smoked [id number] Sex Female Hospital Discharge Instructions Should you have any questions prior to discharge, please contact a member of your healthcare team. If you have left the hospital and have any questions, please contact your primary care physician. Reason For Referral No Data Found Plan of Treatment Picc Line Removal 03/27/2025 PICC Line Placement 03/27/2025 US Venous Right UE ([id number]) 03/27/2025 Encounters Encounter Diagnosis Start Date Code Code Sys tem Myelodysplastic syndrome, unspecified 01/23/2025 SNOMED-CT Personal Care Team Section Performer Name Performer Role Active Date Inactive LAURIE Hidalgo PCP - Primary care physician
--- OUTSIDE RECORDS SUMMARY | 2025-08-21 12:32 | XMS_ITS ---
Author Organization Unknown Address [address] [place] [phone] Phone Care Team Providers Care Stock Parts Inspector Name Role Phone PIPPA GREGORIONISHA Attending Unavailable JOHAN USLLIVAN Primary Unavailable Immunization Immunization Date Status Additional Notes Code Code System Tdap 03/26/2021 Completed 115 CVX Social History Type Status Start Date End Date Code Code Syst em Smoking History Unknown if ever smoked [id number] Sex Female Vital Signs Vital Sign Value Unit Ness Value Ness Unit Date/Time Recent/Initial? Code Code System Body Mass Index 34.97 kg/m2 02/04/2025 09:56 Initial 13370 -5 [facility] Systolic Blood Pressure 168 mm[Hg] 02/04/2025 09:53 Initial 8480- 6 LOINC Diastolic Blood Pressure 73 mm[Hg] 02/04/2025 09:53 Initial 8462- 4 INC Body Surface Area 2.24 m2 02/04/2025 09:56 Initial 3140- 1 LOINC Height 172.720 0 cm 68.00 in 02/04/2025 09:56 Initial 8302- 2 LOINC O2 Saturation 100 % 2024 09:53 Initial 73419 -5 LOINC Pulse 99.0 /min 02/04/2025 09:53 Initial 8867- 4 LOINC Respiration 22 /min 02/05/20 09:53 Initial 9279- 1 LOINC Temperature 36.3 Freda 97.3 F 02/05/20 09:53 Initial 8310- 5 LOINC Weight 104.33 kg 230.00 lbs 02/04/2025 09:56 Initial 65512 -7 INC Hospital Discharge Instructions Should you have any questions prior to discharge, please contact a member of your healthcare team. If you have left the hospital and have any questions, please contact your primary care physician. Reason For Referral No Data Found Plan of Treatment Picc Line Removal 03/27/2025 PICC Line Placement 03/27/2025 US Venous Right UE ([id number]) 03/27/2025 Encounters Encounter Diagnosis Start Date Code Code Sys tem Myelodysplastic syndrome, unspecified 02/04/2025 SNOMED-CT Personal Care Team Section Performer Name Performer Role Active Date Inactive LAURIE Hidalgo PCP - Primary care physician
--- OUTSIDE RECORDS SUMMARY | 2025-08-21 12:33 | XMS_ITS ---
Author Organization Unknown Address [address] [place] [phone] Phone Care Team Providers Care [employer] Principal Name Role Phone JOHAN SULLIVAN Attending Unavailable Immunization Immunization Date Status Additional Notes Code Code System Tdap 03/26/2021 Completed 115 CVX Results US GALLBLADDER - Completed: 12/25/2024 12:00 LOINC: \TM00\\12PI\\DRAo\\BM09\ \MRHo\ [address] [address] ---------NAME--------- NUMBER SEX AGE ADMIT DISC. XRAY# F/C TYPE CHUYITA TONY [id number] F 59 12/25/24 12/25/24 44613 [facility]J O/P DATE OF : 1965 M/R# [id number] PH#: [phone] [id number] \MRHx\ LOCATION: TRANSCRIBED: 12/25/24 13:39 US GALLBLADDER [id number] COMPLETED:12/25/24 12:00 APC 08823 {REASON-US ABD: ABDOMINAL PAIN PHYSICIAN: JOHAN R [...] of gallstones or acute cholecystitis. Hepatic steatosis. GUMMER \ITLo\ \UNDo\ \UNDx\ \ITLx\ Reviewed and Electronically Signed by: Ivan Acosta MD Signed Date: 12/25/24 13:39 Social History Type Status Start Date End Date Code Code Syst em Smoking History Unknown if ever smoked [address] Sex Female Hospital Discharge Instructions Should you have any questions prior to discharge, please contact a member of your healthcare team. If you have left the hospital and have any questions, please contact your primary care physician. Reason For Referral No Data Found Plan of Treatment Picc Line Removal 03/27/2025 PICC Line Placement 03/27/2025 US Venous Right UE ([id number]) 03/27/2025 Encounters Encounter Diagnosis Start Date Code Code Sys tem Fatty (change of) liver, not elsewhere classified 04/2025 SNOMED-CT Personal Care Team Section Performer Name Performer Role Active Date Inactive LAURIE Hidalgo PCP - Primary care physician Imaging Narrative Notes [facility] 12/25/2024 13:42 [facility] [address] [place] [address] ---------NAME--------- NUMBER SEX AGE ADMIT DISC. XRAY# F/C TYPE CHUYITA TONY [id number] F 59 12/25/24 12/25/[address] [facility] O/P DATE OF : 1965 M/R# [id number] #: [phone] LOCATION: TRANSCRIBED: 12/25/24 13:39 US GALLBLADDER [id number] COMPLETED:12/25/24 12:00 APC 03616 {REASON-US ABD: ABDOMINAL PAIN PHYSICIAN: JOHAN RADIOLOGY [...] of gallstones or acute cholecystitis. Hepatic steatosis. GUMMER Reviewed and Electronically Signed by: Ivan Acosta MD Signed Date: 12/25/24 13:39
--- OUTSIDE RECORDS SUMMARY | 2025-08-21 12:33 | XMS_ITS | Clinical Summary ---
Author Organization [facility] Address [address] [place] [address] Care Team Providers Care Park Interpretive Ranger Name Role Phone Reagan Fonseca MD Primary Care Provide r Pepe Alejo MD PhD Unavailable Armando Mar MD Unavailable Allergies Active Allergy Reactions Criticality Noted Date Comments Amoxicillin Shortness of breath, Nausea And Vomiting,Swelling High 01/26/2025 Penicillin G Shortness of breath,Swelling High 03/14 Medications acyclovir (ZOVIRAX) 400 mg tabletIndications:M DS (myelodysplastic syndrome) ([facility]) Take 1 tablet (400 mg total) by mouth 2 (two) times a day 5 Active albuterol 2.5 mg /3 mL (0.083 %) nebulizer solutionIndications :MDS (myelodysplastic syndrome) ([facility]) Inhale 3 mL (2.5 mg total) every 6 (six) hours as needed 5 Active albuterol HFA (PROVENTIL HFA,VENTOLIN HFA,PROAIR HFA) 90 mcg/actuation inhalerIndications: MDS (myelodysplastic syndrome) ([facility]) Inhale 2 puffs every 6 (six) hours as needed 5 Active ALPRAZolam (XANAX) 0.25 mg tabletIndications:M DS (myelodysplastic syndrome) ([facility]) Take 1 tablet (0.25 mg total) by mouth nightly as needed Active fluconazole (DIFLUCAN) 150 mg tabletIndications:M DS (myelodysplastic syndrome) ([facility]) Take 1 tablet (150 mg total) by mouth daily 5 Active Advair HFA 115-21 mcg/actuation inhalerIndications: MDS (myelodysplastic syndrome) ([facility]) Inhale 2 puffs 2 (two) times a day 5 Active oxyCODONE (ROXICODONE) 5 mg immediate release tabletIndications:M DS (myelodysplastic syndrome) ([facility]) Take 1 tablet (5 mg total) by mouth every 6 (six) hours as needed [address] (PROTONIX) 40 mg EC tabletIndications:M DS (myelodysplastic syndrome) ([facility]) Take 1 tablet (40 mg total) by mouth daily 5 Active Senexon-S 8.6-50 mgIndications:MDS (myelodysplastic syndrome) ([facility]) Take 2 tablets by mouth 2 (two) times a day 5 Active traZODone (DESYREL) 100 mg tabletIndications:M DS (myelodysplastic syndrome) ([facility]) Take 1 tablet (100 mg total) by mouth daily Active ciprofloxacin (CIPRO) 500 mg tabletIndications:M DS (myelodysplastic syndrome) ([facility]) TAKE 1 TABLET BY MOUTH TWICE [...] (COMPAZINE) 10 mg tabletIndications:M DS (myelodysplastic syndrome) ([facility]) TAKE 1 TABLET BY MOUTH ONCE EVERY 8 HOURS NEEDED FOR NAUSEA AND VOMITING 5 Active posaconazole (NOXAFIL) 100 mg tablet,delayed release (DR/EC)Indications: MDS (myelodysplastic syndrome) ([facility]) TAKE 3 TABLETS TWICE DAILY FOR ONE DAY THEN 3 TABLETS DAILY*PA DENIED 5 Active ondansetron ODT (ZOFRAN-ODT) 8 mg disintegrating tabletIndications:M DS (myelodysplastic syndrome) ([facility]) DISSOLVE 1 TABLET ON THE TONGUE EVERY 8 HOURS NEEDED FOR NAUSEA 5 Active Active Problems Problem Noted Date Diagnosed Date MDS (myelodysplastic syndrome) 03/14/2025 Encounters Date Type Department Care Team Description 06/24/2025 12:30 PM CDT Clinical Support [facility] - Lab Collection [address] [place] [id number] 06/24/2025 11:30 AM CDT Clinical Support [facility] - Lab Collection [address] [place] [address] MDS (myelodysplastic syndrome) ([facility]) 06/24/2025 11:15 AM CDT Office Visit [facility] Medicine Bone Marrow Transplant [address] [place] [phone] Pepe Alejo MD PhD MDS (myelodysplastic syndrome) ([facility]) (Primary Dx) 06/24/2025 10:15 AM CDT Lab [facility] Medicine Oncology Lab [address] [place] [phone] 06/10/2025 Telephone [facility] Medicine Scheduling [address] [place] [phone] Inna Wu from Last 3 Months Immunizations [...] on file 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, [address] [place], [place] [phone] Monocyte abs 0.08(L) 0.20 - 0.80 K/cumm [facility] Comment:Testing performed by : [facility], [address] [place] [address] Eosinophil abs 0.02 0.00 - 0.50 K/cumm [facility] Comment:Testing performed by : [facility], [address] [place], [place] [phone] Basophil abs 0.01 0.00 - 0.10 K/cumm [facility] Comment:Testing performed by : [facility], [address] [place], [place] [phone] Neutrophil pct 35.2 % [facility] Comment: Interpretive Data Percent cell count reference ranges are not reported, since discordance with absolute values may lead to misinterpretation of CBC data. Current Interpretive Data was last revised on 2017. Testing performed by: [facility], [address] [place], [place] [phone] Lymphocyte pct 58.4 % [facility] Comment: Interpretive Data Percent cell count reference ranges are not reported, since discordance with absolute values may lead to misinterpretation of CBC data. Current Interpretive Data was last revised on 2017. Testing performed by: [facility], [address] [place] [address] Monocyte pct 4.4 % [facility] Comment: Interpretive Data Percent cell count reference ranges are not reported, since discordance with absolute values may lead to misinterpretation of CBC data. Current Interpretive Data was last revised on 2017. Testing performed by: [facility], [address] [place] [address] Eosinophil pct 1.3 % [facility] Comment: Interpretive Data Percent cell count reference ranges are not reported, since discordance with absolute values may lead to misinterpretation of CBC data. Current Interpretive Data was last revised on 2017. Testing performed by: [facility], [address] [place] [phone] Basophil pct 0.8 % [facility] Comment: Interpretive Data Percent cell count reference ranges are not reported, since discordance with absolute values may lead to misinterpretation of CBC data. Current Interpretive Data was last revised on 2017. Testing performed by: [facility], [address] [place] [phone] Blood 06/24/2025 11:2 0 AM CDT 06/24/2025 11:39 AM CDT us Pepe Alejo MD PhD LAB BLOOD ORDERABLES Fin al Result [facility] [place] [address] * (ABNORMAL) CBC with auto differential (06/24/2025 11:20 AM CDT) WBC 1.78(L) 3.80 - 9.90 K/cumm Comment:Testing performed by : [facility], [address] [place] [phone] Hgb 11.8(L) 11.9 - 15.5 g/dL [facility] Comment:Testing performed by : [facility], [address] [place] [phone] Hct 34.7(L) 35.6 - 45.5 % [facility] Comment:Testing performed by : [facility], [address] [place] [phone] Plt 75(L) 150 - 400 K/cumm [facility] Comment:Testing performed by : [facility], [address] [place] [phone] MPV 8.7 6.8 - 10.4 fL [facility] Comment:Testing performed by : [facility], [address] [place] [phone] RBC 3.86(L) 3.90 - 5.20 M/cumm [facility] Comment:Testing performed by : [facility], [address] [place], [place] [phone] MCV 89.9 81.3 - 96.4 fL [facility] Comment:Testing performed by : [facility], [address] [place], [place] [phone] MCH 30.7 27.1 - 33.3 pg [facility] Comment:Testing performed by : [facility], [address] [place] [address] MCHC 34.2 32.3 - 35.7 g/dL [facility] Comment:Testing performed by : [facility], [address] [place], [place] [phone] RDW CV 17.8(H) 11.1 - 14.9 % [facility] Comment:Testing performed by : [facility], [address] [place], [place] [phone] NRBC abs 0.00 0.00 - 0.01 K/cumm [facility] Comment:Testing performed by : [facility], [address] [place], [place] [phone] Blood 06/24/2025 11:2 0 AM CDT 06/24/2025 11:39 AM CDT Pepe Alejo MD PhD LAB BLOOD ORDERABLES Fin al Result [facility] Department [place] [address] * Type and screen (06/24/2025 11:20 AM CDT) Renita, indirect Negative ABO Rh A Positive [facility] Blood 06/24/2025 11:2 0 AM CDT 06/24/2025 11:52 AM CDT Narrative [facility] - 06/24/2025 1:36 PM CDT Has the patient had Daratumumab or Isatuximab in the past 6 months?->Unknown Pepe Alejo MD PhD LAB BLOOD BANK TEST MICKY TENORIO Final Result Performing Organization Address City/[facility]/ZIP Co de Phone Number [facility] Department [place] [address] * Lactate dehydrogenase (LD) (06/24/2025 11:20 AM CDT) Pathologist [facility] Lactate dehydrogenase (LDH) 189 100 - 250 Units/L Blood 06/24/2025 11:2 0 AM CDT 06/24/2025 11:39 AM CDT Pepe Alejo MD PhD LAB BLOOD ORDERABLES Fin al Result Performing Organization Address [facility] Co de Phone Number [facility] Department [place] [address] * (ABNORMAL) Comprehensive metabolic panel (06/24/2025 11:20 AM CDT) [facility] Sodium 144 135 - 145 mmol/L Potassium, pl 3.1(L) 3.3 - 4.9 mmol/L [facility] Chloride 105 97 - 110 mmol/L [facility] CO2 28 22 - 32 mmol/L [facility] Anion gap 11 2 - 15 mmol/L [facility] BUN 10 6 - 25 mg/dL [facility] Creatinine 0.70 0.60 - 1.10 mg/dL [facility] Glucose 133 70 - 199 mg/dL [facility] Comment: Interpretive Data Fasting glucose >/= [...] 2022. Calcium 8.8 8.5 - 10.3 mg/dL [facility] Bilirubin, total 0.3 0.1 - 1.2 mg/dL [facility] Protein, pl 7.0 6.5 - 8.5 g/dL [facility] Albumin 4.0 3.5 - 5.0 g/dL [facility] Alk phos 82 40 - 130 Units/L [facility] ALT 21 7 - 45 Units/L [facility] AST 25 10 - 45 Units/L [facility] Blood 06/24/2025 11:2 0 AM CDT 06/24/2025 11:39 AM CDT us Pepe Alejo MD PhD LAB BLOOD ORDERABLES Fin al Result [facility] [place] [address] from Last 3 Months Insurance MEDICARE [employer] MEDICARE IDPA Care Teams Park Interpretive Ranger Relationship Specialty Start Date End Date Reagan Fonseca MD [address] [place], [place] [phone] PCP - General Family Medicine 12/11/24 Pepe Alejo MD PhD [address] [facility] BONE MARROW [employer]ANSPLANT, , [address] [place] [address] Medical Oncologist/Ophthalmologist Medical Oncology 01/07/25 Armando Mar MD [address] [place] [address] Internal Medicine 03/18/25
--- OUTSIDE RECORDS SUMMARY | 2025-08-21 12:33 | XMS_ITS ---
Author Organization [facility] Address [address] [place] [address] Care Team Providers Care Architecture Analyst Name Role Phone Reagan Fonseca MD [...]
[2025-08-21] MEDS: HEPARIN SODIUM LOCK FLUSH 500 UNITS/5 ML SYRINGE IV PUSH (13:17)
[2025-08-21 13:23] VITALS: BP 139/81; PULSE 78; RESP 14; O2SAT 97
--- NOTE | 2025-08-21 13:26 | PC.NURSE ---
Patient tolerated today's treatment well. SEE MAR/patient care notes.
== END 2025-08-21 10:56 | disposition home or self-care (01) ==
PROVIDERS: PCP Family Medicine; Visit Provider Internal Medicine Hematology
DX: Z51.11 Encounter for antineoplastic chemotherapy (principal); D46.21 Refractory anemia with excess of blasts 1
CPT/HCPCS: 96367; 96413; J0894; J2405; J7050

== ENCOUNTER 2025-08-22 11:02 | Outpatient (CLI) | payer MEDICARE, MEDICAID, SELFPAY ==
[2025-08-22] MEDS: SODIUM CHLORIDE 0.9% IV 250 ML 10 ML IVPB (11:10)
[2025-08-22 11:29] VITALS: BP 138/78; PULSE 78; RESP 14; TEMP 36.6; O2SAT 96; BMI 30.1
[2025-08-22] MEDS: SODIUM CHLORIDE 0.9% IVPB ×2 (11:35→12:10)
[2025-08-22] MEDS: ONDANSETRON IVPB (11:35)
[2025-08-22] MEDS: DECITABINE IVPB (12:10)
--- OUTSIDE RECORDS SUMMARY | 2025-08-22 12:30 | XMS_ITS | Clinical Summary ---
Author Organization [facility] Address [address] [place] [address] Care Team Providers Care Speaker Mounter Name Role Phone Reagan Fonseca MD Primary Care Provider [phone] Allergies Active Allergy Reactions Criticality Noted Date [...] from your doctor or pharmacy? Rarely 03/08/2025 [facility] Utilities Answer Date Recorded In the past 12 months has [facility] [employer], [employer], or water [employer] threatened to shut off services in your [...] How often do you attend restorationism or sikhism serv ices? Never 03/08/2025 Do you belong [...] care, and heating? Patient declined 03/08/2025 [facility] of Occupat ional [facility] - [...] any time in the past 12 [facility], were you homeless or living in a correction (including now)? No 03/08/2025 Comments No Sex [...] complete this topic Insurance [address] [place] [address] MEDICAID MEDICARE Advance Directives * Full Code (Latest Code Status on File) Date Activated Date Inactivated Comments 03/07/2025 10:49 PM 03/12/2025 8:04 PM Care Teams Speaker Mounter Relationship Specialty Start Date End Date Reagan Fonseca MD [address] [place] [address] PCP - General FAMILY PRACTICE 01/26/25
--- OUTSIDE RECORDS SUMMARY | 2025-08-22 12:30 | XMS_ITS | Encounter Summary ---
Author Organization [facility] Address [address] [place] [phone] Care Team Providers Care Staffing Rn Name Role Phone Reagan Fonseca MD Primary Care Provider [phone] Encounter Details Date Type Department Care Team (Late st Contact Info) Description 02/24/2019 Abstract SFL CONVERSION [address] [place] [address] , Generic Conversion, Social History Tobacco Use [...] on filedocumented in this encounter Care Teams Staffing Rn Relationship Specialty Start Date End Date Reagan Fonseca MD [address] [place] [address] PCP - General FAMILY PRACTICE 01/26/25 documented as of this encounter
--- OUTSIDE RECORDS SUMMARY | 2025-08-22 12:30 | XMS_ITS ---
Author Organization Unknown Address [address] [place] [phone] Phone Care Team Providers Care School Bus Driver/Custodian Name Role Phone JOHAN SULLIVAN Attending Unavailable Immunization Immunization Date Status Additional Notes Code Code System Tdap 03/26/2021 Completed 115 CVX Results CBC W/ DIFF - Collect Date/T sarah: 01/08/2025 13:23 [facility] ID: [id number] [address] [place] [address], [id number] LOINC: 27231-3 Test Value Unit Reference Range Code Code [...] H=36.0 L PLATELETS 43 10^3uL L=100 H=400 26366-4 LOINC L RDW 16.1 % L=11.7 H=15.5 H %GRAN L=40.0 H=70.0 81668-4 LOINC %LYMPH L=20.0 H=45.0 736-9 LOINC %MONO L=2.0 H=10.0 55043-6 LOINC %EOS L=0.0 H=6.0 713-8 LOINC %BASO L=0.0 H=3.0 706-2 LOINC #NEUT L=1.9 H=7.6 86788-1 LOINC #LYMPH L=0.9 H=4.9 27786-0 LOINC #MONO L=0.1 H=0.9 06899-1 LOINC #EOS L=0.0 H=0.6 712-0 LOINC #BASO L=0.00 H=0.10 51316-2 LOINC #IM GRANS L=0.0 H=7.0 35111-1 LOINC %IM GRANS L=0.0 H=5.0 60552-2 LOINC %NRB L=0.0 H=0.2 17356-3 LOINC #NRB L=0.000 H=0.012 44974-7 LOINC MANUAL DIFF SEE BELOW A SEG [...] L=0 H=0 BLASTS 0 % L=0 H=0 16599-2 LOINC PANDA LYMPHS 0.00 % L=0.00 H=5.00 SMUDGE CELLS 0 % L=0 H=0 NRBC 0.0 % L=0.0 H=0.0 PLTS DECREASED NEUT # 0.7 10^3uL L=1.9 H=7.6 LL LYMPH # 1.2 10^3uL L=0.9 H=4.9 MONO # 0.0 10^3uL L=0.1 H=0.9 L EOS # 0.1 10^3uL L=0.0 H=0.6 712-0 LOINC BASO # 0.0 10^3uL L=0.0 H=0.1 86180-7 LOINC RBC MORPH NOT INDICATED COMPREHENSIVE METABOLIC PANE L - Collect Date/Time: 01/08/2025 13:23 [facility] ID: [id number] [address] [place], [place], [id number] LOINC: 83887-3 Test Value Unit Reference Range Code Code [...] 2028-9 LOINC ANION GAP 10 L=10 H=20 85336-3 LOINC OSMOLALITY 288 mOs/kG L=280 H=296 34396-4 LOINC BUN/CREAT 13.3 3097-3 LOINC CALCIUM 8.9 mg/dL L=8.3 H=10.5 31614-0 LOINC AST 23 U/L L=15 H=46 1920-8 LOINC ALT 15 U/L L=9 H=72 1742-6 LOINC ALKALINE PHOS 61 U/L L=38 H=126 6768-6 LOINC TOTAL BILI 0.3 mg/dL L=0.2 H=1.3 1975-2 LOINC ALBUMIN 3.9 G/dL L=3.5 H=5.0 1751-7 LOINC TOTAL PROTEIN 7.6 g/L L=6.3 H=8.2 2885-2 LOINC A/G RATIO 1.1 76698-9 LOINC AGE 59 71182-4 LOINC eGFR NON-AFR 69 ml/min eGFR AFR AMER 83 ml/min Social History Type Status Start Date End Date Code Code Syst em Smoking History Unknown if ever smoked [address] Sex Female Hospital Discharge Instructions Should you have any questions prior to discharge, please contact a member of your healthcare team. If you have left the hospital and have any questions, please contact your primary care physician. Reason For Referral No Data Found Plan of Treatment Picc Line Removal 03/27/2025 PICC Line Placement 03/27/2025 US Venous Right UE ([id number]) 03/27/2025 Encounters Encounter Diagnosis Start Date Code Code Sys tem Myelodysplastic syndrome, unspecified 01/08/2025 SNOMED-CT Personal Care Team Section Performer Name Performer Role Active Date Inactive LAURIE Hidalgo PCP - Primary care physician
--- OUTSIDE RECORDS SUMMARY | 2025-08-22 12:30 | XMS_ITS | Encounter Summary ---
Author Organization [facility] Address [address] [place] [address] Care Team Providers Care Shell Shop Supervisor Name Role Phone Reagan Fonseca MD Primary Care Provider [phone] Encounter Details Date Type Department Care Team (Late st Contact Info) Description 12/03/2017 Abstract SJS CONVERSION [address] [place] [address] , Generic Conversion, Social History Tobacco Use [...] on filedocumented in this encounter Care Teams Shell Shop Supervisor Relationship Specialty Start Date End Date Reagan Fonseca MD [address] [place] [address] PCP - General FAMILY PRACTICE 01/26/25 documented as of this encounter
--- OUTSIDE RECORDS SUMMARY | 2025-08-22 12:31 | XMS_ITS ---
Author Organization [facility] Address [address] [place] [address] Care Team Providers Care Supervisor Speech Name Role Phone Reagan Fonseca MD Primary [...]
--- OUTSIDE RECORDS SUMMARY | 2025-08-22 12:31 | XMS_ITS | Clinical Summary ---
Author Organization [facility] Address [address] [place] [address] Care Team Providers Care Content Strategist Name Role Phone Reagan Fonseca MD Primary Care Provide r Pepe Alejo MD PhD Unavailable [phone] Armando Mar MD Unavailable Allergies Active Allergy Reactions Criticality Noted Date Comments Amoxicillin Shortness of breath, Nausea And Vomiting,Swelling High 01/26/2025 Penicillin G Shortness of breath,Swelling High 03/14 Medications acyclovir (ZOVIRAX) 400 mg tabletIndications:M DS (myelodysplastic syndrome) ([facility]) Take 1 tablet (400 mg total) by mouth 2 (two) times a day 5 Active albuterol 2.5 mg /3 mL (0.083 %) nebulizer solutionIndications :MDS (myelodysplastic syndrome) ([facility]) Inhale 3 mL (2.5 mg total) every 6 (six) hours as needed 5 Active albuterol HFA (PROVENTIL HFA,VENTOLIN HFA,PROAIR HFA) 90 mcg/actuation inhalerIndications: MDS (myelodysplastic syndrome) ([facility]) Inhale 2 puffs every 6 (six) hours as needed 5 Active ALPRAZolam (XANAX) 0.25 mg tabletIndications:M DS (myelodysplastic syndrome) ([facility]) Take 1 tablet (0.25 mg total) by mouth nightly as needed Active fluconazole (DIFLUCAN) 150 mg tabletIndications:M DS (myelodysplastic syndrome) ([facility]) Take 1 tablet (150 mg total) by mouth daily 5 Active Advair HFA 115-21 mcg/actuation inhalerIndications: MDS (myelodysplastic syndrome) ([facility]) Inhale 2 puffs 2 (two) times a day 5 Active oxyCODONE (ROXICODONE) 5 mg immediate release tabletIndications:M DS (myelodysplastic syndrome) ([facility]) Take 1 tablet (5 mg total) by mouth every 6 (six) hours as needed [address] (PROTONIX) 40 mg EC tabletIndications:M DS (myelodysplastic syndrome) ([facility]) Take 1 tablet (40 mg total) by mouth daily 5 Active Senexon-S 8.6-50 mgIndications:MDS (myelodysplastic syndrome) ([facility]) Take 2 tablets by mouth 2 (two) times a day 5 Active traZODone (DESYREL) 100 mg tabletIndications:M DS (myelodysplastic syndrome) ([facility]) Take 1 tablet (100 mg total) by mouth daily Active ciprofloxacin (CIPRO) 500 mg tabletIndications:M DS (myelodysplastic syndrome) ([facility]) TAKE 1 TABLET BY MOUTH [...] (COMPAZINE) 10 mg tabletIndications:M DS (myelodysplastic syndrome) ([facility]) TAKE 1 TABLET BY MOUTH ONCE EVERY 8 HOURS NEEDED FOR NAUSEA AND VOMITING 5 Active posaconazole (NOXAFIL) 100 mg tablet,delayed release (DR/EC)Indications: MDS (myelodysplastic syndrome) ([facility]) TAKE 3 TABLETS TWICE DAILY FOR ONE DAY THEN 3 TABLETS DAILY*PA DENIED 5 Active ondansetron ODT (ZOFRAN-ODT) 8 mg disintegrating tabletIndications:M DS (myelodysplastic syndrome) ([facility]) DISSOLVE 1 TABLET ON THE TONGUE EVERY 8 HOURS NEEDED FOR NAUSEA 5 Active Active Problems Problem Noted Date Diagnosed Date MDS (myelodysplastic syndrome) 03/14/2025 Encounters Date Type Department Care Team Description 06/24/2025 12:30 PM CDT Clinical Support [facility] - Lab Collection [address] [place] [address] 06/24/2025 11:30 AM CDT Clinical Support [facility] - Lab Collection [address] [place] [address] MDS (myelodysplastic syndrome) ([facility]) 06/24/2025 11:15 AM CDT Office Visit [facility] Medicine Bone Marrow Transplant [address] [place] [phone] Pepe Alejo MD PhD MDS (myelodysplastic syndrome) ([facility]) (Primary Dx) 06/24/2025 10:15 AM CDT Lab [facility] Medicine Oncology Lab [address] [place] [phone] 06/10/2025 Telephone [facility] Medicine Scheduling [address] [place] [address] Inna Wu from Last 3 Months Immunizations [...] on file 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 Gender Identity Not on file Sexual Orientation [...] LAB BLOOD ORDERABLES Fin al Result [facility] Department [place] [address] * (ABNORMAL) Differential, auto (06/24/2025 11:20 AM CDT) Neutrophil abs 0.63(L) 1.50 - 6.50 K/cumm Comment:Testing performed by : [facility], [address] [place] [phone] Lymphocyte abs 1.04 0.80 - 3.30 K/cumm [facility] Comment:Testing performed by : [facility]e [facility], [address] [place], [place] [phone] Monocyte abs 0.08(L) 0.20 - 0.80 K/cumm [facility] Comment:Testing performed by : [facility], [address] [place] [address] Eosinophil abs 0.02 0.00 - 0.50 K/cumm [facility] Comment:Testing performed by : [facility], [address] [place], [place] [phone] Basophil abs 0.01 0.00 - 0.10 K/cumm [facility] Comment:Testing performed by : [facility], [address] [place], [place] [phone] Neutrophil pct 35.2 % [facility] Comment: Interpretive Data Percent cell count reference ranges are not reported, since discordance with absolute values may lead to misinterpretation of CBC data. Current Interpretive Data was last revised on 2017. Testing performed by: [facility], [address] [place], [place] [phone] Lymphocyte pct 58.4 % [facility] Comment: Interpretive Data Percent cell count reference ranges are not reported, since discordance with absolute values may lead to misinterpretation of CBC data. Current Interpretive Data was last revised on 2017. Testing performed by: [facility], [address] [place] [address] Monocyte pct 4.4 % [facility] Comment: Interpretive Data Percent cell count reference ranges are not reported, since discordance with absolute values may lead to misinterpretation of CBC data. Current Interpretive Data was last revised on 2017. Testing performed by: [facility], [address] [place] [address] Eosinophil pct 1.3 % [facility] Comment: Interpretive Data Percent cell count reference ranges are not reported, since discordance with absolute values may lead to misinterpretation of CBC data. Current Interpretive Data was last revised on 2017. Testing performed by: [facility], [address] [place] [phone] Basophil pct 0.8 % [facility] Comment: Interpretive Data Percent cell count reference ranges are not reported, since discordance with absolute values may lead to misinterpretation of CBC data. Current Interpretive Data was last revised on 2017. Testing performed by: [facility], [address] [place] [phone] Blood 06/24/2025 11:2 0 AM CDT 06/24/2025 11:39 AM CDT us Pepe Alejo MD PhD LAB BLOOD ORDERABLES Fin al Result [facility] Department [place] [address] * (ABNORMAL) CBC with auto differential (06/24/2025 11:20 AM CDT) WBC 1.78(L) 3.80 - 9.90 K/cumm Comment:Testing performed by : [facility], [address] [place] [phone] Hgb 11.8(L) 11.9 - 15.5 g/dL [facility] Comment:Testing performed by : [facility], [address] [place] [phone] Hct 34.7(L) 35.6 - 45.5 % [facility] Comment:Testing performed by : [facility], [address] [place] [phone] Plt 75(L) 150 - 400 K/cumm [facility] Comment:Testing performed by : [facility], [address] [place] [phone] MPV 8.7 6.8 - 10.4 fL [facility] Comment:Testing performed by : [facility], [address] [place] [phone] RBC 3.86(L) 3.90 - 5.20 M/cumm [facility] Comment:Testing performed by : [facility], [address] [place], [place] [phone] MCV 89.9 81.3 - 96.4 fL [facility] Comment:Testing performed by : [facility], [address] [place], [place] [phone] MCH 30.7 27.1 - 33.3 pg [facility] Comment:Testing performed by : [facility], [address] [place] [address] MCHC 34.2 32.3 - 35.7 g/dL [facility] Comment:Testing performed by : [facility], [address] [place], [place] [phone] RDW CV 17.8(H) 11.1 - 14.9 % [facility] Comment:Testing performed by : [facility], [address] [place], [place] [phone] NRBC abs 0.00 0.00 - 0.01 K/cumm [facility] Comment:Testing performed by : [facility], [address] [place], [place] [phone] Blood 06/24/2025 11:2 0 AM CDT 06/24/2025 11:39 AM CDT Pepe Alejo MD PhD LAB BLOOD ORDERABLES Fin al Result [facility] Department [place] [address] * Type and screen (06/24/2025 11:20 AM CDT) Renita, indirect Negative ABO Rh A Positive [facility] Blood 06/24/2025 11:2 0 AM CDT 06/24/2025 11:52 AM CDT Narrative [facility] - 06/24/2025 1:36 PM CDT Has the patient had Daratumumab or Isatuximab in the past 6 months?->Unknown Pepe Alejo MD PhD LAB BLOOD BANK TEST MICKY TENORIO Final Result Performing Organization Address City/[facility]/ZIP Co de Phone Number [facility] Department [place] [address] * Lactate dehydrogenase (LD) (06/24/2025 11:20 AM CDT) Pathologist [facility] Lactate dehydrogenase (LDH) 189 100 - 250 Units/L Blood 06/24/2025 11:2 0 AM CDT 06/24/2025 11:39 AM CDT Pepe Alejo MD PhD LAB BLOOD ORDERABLES Fin al Result Performing Organization Address [facility] Co de Phone Number [facility] Department [place] [address] * (ABNORMAL) Comprehensive metabolic panel (06/24/2025 11:20 AM CDT) [facility] Sodium 144 135 - 145 mmol/L Potassium, pl 3.1(L) 3.3 - 4.9 mmol/L [facility] Chloride 105 97 - 110 mmol/L [facility] CO2 28 22 - 32 mmol/L [facility] Anion gap 11 2 - 15 mmol/L [facility] BUN 10 6 - 25 mg/dL [facility] Creatinine 0.70 0.60 - 1.10 mg/dL [facility] Glucose 133 70 - 199 mg/dL [facility] Comment: Interpretive Data Fasting glucose >/= [...] Calcium 8.8 8.5 - 10.3 mg/dL [facility] Bilirubin, total 0.3 0.1 - 1.2 mg/dL [facility] Protein, pl 7.0 6.5 - 8.5 g/dL [facility] Albumin 4.0 3.5 - 5.0 g/dL [facility] Alk phos 82 40 - 130 Units/L [facility] ALT 21 7 - 45 Units/L [facility] AST 25 10 - 45 Units/L [facility] Blood 06/24/2025 11:2 0 AM CDT 06/24/2025 11:39 AM CDT us Pepe Alejo MD PhD LAB BLOOD ORDERABLES Fin al Result [facility] Department [place] [address] from Last 3 Months Insurance MEDICARE [facility] MEDICARE IDPA Care Teams Content Strategist Relationship Specialty Start Date End Date Reagan Fonseca MD [address], [place] [phone] PCP - General Family Medicine 12/11/24 Pepe Alejo MD PhD [address] [facility] 8 DIV IM BONE MARROW TRANSPLANT, , [address] [place] [address] Medical Oncologist/Count Team Clerk Medical Oncology 01/07/25 Armando Mar MD [address] [place] [address] Internal Medicine 03/18/25
--- OUTSIDE RECORDS SUMMARY | 2025-08-22 12:31 | XMS_ITS ---
Author Organization Unknown Address [address] [place] [phone] Phone Care Team Providers Care Educational Resource Center Teacher Name Role Phone JOHAN SULLIVAN Attending Unavailable Immunization Immunization Date Status Additional Notes Code Code System Tdap 03/26/2021 Completed 115 CVX Results US GALLBLADDER - Completed: 12/25/2024 12:00 LOINC: \TM00\\12PI\\DRAo\\BM09\ \MRHo\ [address] [address] ---------NAME--------- NUMBER SEX AGE ADMIT DISC. XRAY# F/C TYPE CHUYITA TONY [id number] F 59 12/25/24 12/25/24 [address] MBJ O/P DATE OF : 1965 M/R# [id number] PH#: [phone] RM \MRHx\ LOCATION: TRANSCRIBED: 12/25/24 13:39 US GALLBLADDER [id number] COMPLETED:12/25/24 12:00 APC [id number] {REASON-US ABD: ABDOMINAL PAIN PHYSICIAN: JOHAN R [...] of gallstones or acute cholecystitis. Hepatic steatosis. ICAL ADMINISTRATIVE ASSISTANT \ITLo\ \UNDo\ \UNDx\ \ITLx\ Reviewed and Electronically Signed by: Ivan Acosta MD Signed Date: 12/25/24 13:39 Social History Type Status Start Date End Date Code Code Syst em Smoking History Unknown if ever smoked [id number] Sex Female Hospital Discharge Instructions Should you have any questions prior to discharge, please contact a member of your healthcare team. If you have left the hospital and have any questions, please contact your primary care physician. Reason For Referral No Data Found Plan of Treatment Picc Line Removal 03/27/2025 PICC Line Placement 03/27/2025 US Venous Right UE ([id number]) 03/27/2025 Encounters Encounter Diagnosis Start Date Code Code Sys tem Fatty (change of) liver, not elsewhere classified 04/2025 SNOMED-CT Personal Care Team Section Performer Name Performer Role Active Date Inactive LAURIE Hidalgo PCP - Primary care physician Imaging Narrative Notes [facility] 12/25/2024 13:42 [facility] [address] [place] [address] ---------NAME--------- NUMBER SEX AGE ADMIT DISC. XRAY# F/C TYPE CHUYITA TONY [id number] F 59 12/25/24 12/25/24 [id number] [facility] O/P DATE OF : 1965 M/R# [id number] #: [phone] LOCATION: TRANSCRIBED: 12/25/24 13:39 US GALLBLADDER [id number] COMPLETED:12/25/24 12:00 APC [id number] {REASON-US ABD: ABDOMINAL PAIN PHYSICIAN: JOHAN RADIOLOGY [...] of gallstones or acute cholecystitis. Hepatic steatosis. ICAL ADMINISTRATIVE ASSISTANT Reviewed and Electronically Signed by: Ivan Acosta MD Signed Date: 12/25/24 13:39
--- OUTSIDE RECORDS SUMMARY | 2025-08-22 12:31 | XMS_ITS ---
Author Organization Unknown Address [address] [place] [phone] Phone Care Team Providers Care Physicians Assistant Name Role Phone PIPPA GREGORIONISHA Attending Unavailable JOHAN SULLIVAN Primary Unavailable Immunization Immunization Date Status Additional Notes Code Code System Tdap 03/26/2021 Completed 115 CVX Social History Type Status Start Date End Date Code Code Syst em Smoking History Unknown if ever smoked [id number] Sex Female Vital Signs Vital Sign Value Unit Mccook Value Mccook Unit Date/Time Recent/Initial? Code Code System Body Mass Index 34.97 kg/m2 02/04/2025 09:56 Initial 22430 -5 [facility] Systolic Blood Pressure 168 mm[Hg] 02/04/2025 09:53 Initial 8480- 6 LOINC Diastolic Blood Pressure 73 mm[Hg] 02/04/2025 09:53 Initial 8462- 4 INC Body Surface Area 2.24 m2 02/04/2025 09:56 Initial 3140- 1 LOINC Height 172.720 0 cm 68.00 in 02/04/2025 09:56 Initial 8302- 2 LOINC O2 Saturation 100 % 2024 09:53 Initial 07810 -5 LOINC Pulse 99.0 /min 02/04/2025 09:53 Initial 8867- 4 LOINC Respiration 22 /min 02/05/20 09:53 Initial 9279- 1 LOINC Temperature 36.3 Freda 97.3 F 02/05/20 09:53 Initial 8310- 5 LOINC Weight 104.33 kg 230.00 lbs 02/04/2025 09:56 Initial 62446 -7 INC Hospital Discharge Instructions Should you have any questions prior to discharge, please contact a member of your healthcare team. If you have left the hospital and have any questions, please contact your primary care physician. Reason For Referral No Data Found Plan of Treatment Picc Line Removal 03/27/2025 PICC Line Placement 03/27/2025 US Venous Right UE ([id number]) 03/27/2025 Encounters Encounter Diagnosis Start Date Code Code Sys tem Myelodysplastic syndrome, unspecified 02/04/2025 SNOMED-CT Personal Care Team Section Performer Name Performer Role Active Date Inactive LAURIE Hidalgo PCP - Primary care physician
[2025-08-22 13:30] VITALS: BP 139/88; PULSE 78; RESP 14; O2SAT 97
[2025-08-22] MEDS: HEPARIN SODIUM LOCK FLUSH 500 UNITS/5 ML SYRINGE IV PUSH (13:30)
--- NOTE | 2025-08-22 14:20 | PC.NURSE ---
2024 Patient tolerated Decitabine treatment infusion day 3 well today. SEE MAR/patient care notes.
== END 2025-08-22 11:03 | disposition home or self-care (01) ==
PROVIDERS: PCP Family Medicine; Visit Provider Internal Medicine Hematology
DX: Z51.11 Encounter for antineoplastic chemotherapy (principal); D46.21 Refractory anemia with excess of blasts 1
CPT/HCPCS: 96367; 96413; J0894; J2405; J7050

== ENCOUNTER 2025-08-23 11:00 | Outpatient (CLI) | payer MEDICARE, MEDICAID, SELFPAY ==
[2025-08-23] MEDS: SODIUM CHLORIDE 0.9% IV 250 ML 10 ML IVPB (11:10)
[2025-08-23 11:13] VITALS: BP 132/79; PULSE 80; RESP 16; TEMP 36.5; O2SAT 97; BMI 30.2
[2025-08-23] MEDS: SODIUM CHLORIDE 0.9% IVPB ×2 (11:15→11:45)
[2025-08-23] MEDS: ONDANSETRON IVPB (11:15)
[2025-08-23] MEDS: DECITABINE IVPB (11:45)
[2025-08-23] MEDS: HEPARIN SODIUM LOCK FLUSH 500 UNITS/5 ML SYRINGE IV PUSH (12:50)
[2025-08-23 12:55] VITALS: BP 139/83; PULSE 72; RESP 14; TEMP 36.6; O2SAT 96
--- NOTE | 2025-08-23 13:11 | PC.NURSE ---
Patient tolerated Decitabine #4 of 5 treatment well. SEE MAR/patient care notes.
== END 2025-08-23 11:01 | disposition home or self-care (01) ==
PROVIDERS: PCP Family Medicine; Visit Provider Internal Medicine Hematology
DX: Z51.11 Encounter for antineoplastic chemotherapy (principal); D46.21 Refractory anemia with excess of blasts 1
CPT/HCPCS: 96367; 96413; J0894; J2405; J7050

== ENCOUNTER 2025-08-26 10:56 | Outpatient (CLI) | payer MEDICARE, MEDICAID, SELFPAY ==
[2025-08-26 11:02] VITALS: BMI 30.2
[2025-08-26] MEDS: SODIUM CHLORIDE 0.9% IV 250 ML 10 ML IVPB (11:05)
[2025-08-26] MEDS: SODIUM CHLORIDE 0.9% IVPB ×2 (11:20→11:44)
[2025-08-26] MEDS: ONDANSETRON IVPB (11:20)
[2025-08-26 11:29] VITALS: BP 149/80; PULSE 78; RESP 14; TEMP 36.7; O2SAT 95
[2025-08-26] MEDS: DECITABINE IVPB (11:44)
[2025-08-26] MEDS: HEPARIN SODIUM LOCK FLUSH 500 UNITS/5 ML SYRINGE IV PUSH (12:46)
[2025-08-26 12:56] VITALS: BP 147/75; PULSE 78; RESP 14; O2SAT 95
== END 2025-08-26 10:57 | disposition home or self-care (01) ==
PROVIDERS: PCP Family Medicine; Visit Provider Internal Medicine Hematology
DX: Z51.11 Encounter for antineoplastic chemotherapy (principal); D46.21 Refractory anemia with excess of blasts 1
CPT/HCPCS: 96367; 96413; J0894; J2405; J7050